=== PATIENT | male | born 1965 ===

== ENCOUNTER 2018-08-10 17:57 | Inpatient (IN) | payer MEDICAID, OTHER ==
[2018-08-10] MEDS ORDERED: Iodixanol 320 MG/ML 100 ML BOTTLE IV ONE (18:15)
[2018-08-10] MEDS ORDERED: Sodium Chloride 0.9% 1,000 ML IV SCH ×2 (18:15→18:42)
[2018-08-10 18:18] LABS: BASO % 0.2 % (0.0-2.0); HEMOGLOBIN 14.2 g/dL (12.0-18.0); LYMPH # 1.2 K/uL (1.0-4.3); LYMPH % 9.2 % (20.0-40.0); MEAN CORPUSCULAR HEMOGLOBIN 28.3 pg (27.0-31.0); MEAN PLATELET VOLUME 8.4 fL (7.2-11.7); MONO # 1.1 K/uL (0.0-0.8); MONO % 8.4 % (0.0-10.0); NEUT # 10.4 K/uL (1.8-7.0); NEUT % 82.2 % (50.0-75.0); PLATELET COUNT 251 K/uL (130-400); RED CELL DISTRIBUTION WIDTH 13.8 % (11.5-14.5); WHITE BLOOD COUNT 12.7 K/uL (4.8-10.8)
[2018-08-10 18:24] LABS: INR 1.1; PROTHROMBIN TIME 12.3 SECONDS (9.7-12.2)
[2018-08-10 18:29] LABS: ALB/GLOB RATIO 1.4 (1.0-2.1); ALBUMIN 4.8 g/dL (3.5-5.0); ALT/SGPT 34 U/L (21-72); AST/SGOT 43 U/L (17-59); BLOOD UREA NITROGEN 11 mg/dL (9-20); CALCIUM 9.5 mg/dl (8.6-10.4); GFR NON-AFRICAN AMERICAN > 60; HDL CHOLESTEROL 59 mg/dL (30-70)
[2018-08-10 18:39] LABS: LDL CHOLESTEROL 184 mg/dL (0-129)
--- NOTE | 2018-08-10 18:45 | C.PDOC ---
History Of Present Illness 52 y/o male pt presents to the ER for c/o unable to feel and move his left side. Pt reports he rents a room and lives with many people. He was fine last night when he went to bed but this morning he is unable to move his left side. Pt states he had been drinking last night. It was reported by mink slicer that his roommates noticed he wasn't moving during the day and thought he was hung over. Pt admits to drinking daily. Pt denies hx of stroke, [place], CAD and DM. Pt also denies fever and chills. Time Seen by Provider: 08/10/18 18:05 Chief Complaint (Nursing): Altered Mental Status History Per: Patient History/Exam Limitations: None Onset/Duration Of Symptoms: Hrs Current Symptoms Are (Timing): Still Present Past Medical History Reviewed: Historical Data, Nursing Documentation, Vital Signs Vital Signs: Last Vital Signs Temp 98.8 F 08/10/18 18:06 Pulse 100 H 08/10/18 18:06 Resp 20 08/10/18 18:06 BP 141/60 08/10/18 18:06 Pulse Ox 97 08/10/18 18:06 Family History: States: No Known Family Hx - Social History Hx Alcohol Use: Yes Hx Substance Use: No - Immunization History Hx Tetanus Toxoid Vaccination: No Hx Influenza Vaccination: No Hx Pneumococcal Vaccination: No Review Of Systems Constitutional: Negative for: Fever, Chills Musculoskeletal: Positive for: Other (unable to move left-side of body ) Physical Exam - Physical Exam Appears: Non-toxic, No Acute Distress Skin: Normal Color, Warm, Dry Head: Other (left facial droop; but can raise eyebrow ) Eye(s): bilateral: Normal Inspection, EOMI Neck: Normal ROM, Supple Chest: Symmetrical, No Deformity Cardiovascular: Rhythm Regular Respiratory: Normal Breath Sounds Gastrointestinal/Abdominal: Soft, No Tenderness Back: No CVA Tenderness Extremity: No Normal ROM (unable to move left side of body ), No Pedal Edema, No Calf Tenderness, Capillary Refill (<2 sec), No Deformity, No Swelling Pulses: Left Dorsalis Pedis: Normal, Right Dorsalis Pedis: Normal Neurological/Psych: Oriented x3, Normal Speech, Normal Cognition ED Course And Treatment - Laboratory Results Result Diagrams: 08/16/18 06:12 11/17/18 06:19 ECG: Interpreted By Me, Viewed By Me ECG Rhythm: Sinus Rhythm, Nonspecific Changes ECG Interpretation: Normal, No Acute Changes Rate From EC O2 Sat by Pulse Oximetry: 97 (RA) Pulse Ox Interpretation: Normal - CT Scan/US head Other Rad Studies (CT/US): Read By Radiologist, Radiology Report Reviewed CT/US Interpretation: Name:LOPEZ HARLEY Exam Date:Aug 10, 2018 6:15:19 PM EST. Modality Type:CT\SR. Description:CT - BRAIN. Gender:M Laterality:Not applicable. :67 Referring Physician:KI LOPEZ. EXAM: CT Head without Intravenous Contrast. CLINICAL HISTORY: Code stroke. TECHNIQUE: Axial computed tomography images of the head/brain without intravenous contrast. 0.00 mGy-cm. COMPARISON: None provided. FINDINGS: BRAIN. There is a large low density involving infarct involving mainly the right parietal region extending to the high convexity. Infarct involves the bassett and white matter. The infarct extends to the right temporal lobe as well as the external capsule, basal ganglia and caudate nucleus on the right side. He is approximately 4 mm shift of the midline structures to the left with mass-effect on the right lateral ventricle and right frontal horn. Fourth ventricle appears within normal limits. VENTRICLES: No hydrocephalus. ORBITS: The orbits are unremarkable. SINUSES AND MASTOIDS: The paranasal sinuses and mastoid air cells are clear. BONES: No fracture. SOFT TISSUES: Unremarkable. IMPRESSION: Large low density involving infarct involving the right hemisphere mainly in the right parietal lobe and also including the right temporal lobe. Infarct extends medially to involve the right external capsule basal ganglia and caudate nucleus. There is approximate 4 mm shift of the midline structures. There is mass-effect on the right lateral ventricle and right frontal horn. No hemorrhage is identified. Close clinical correlation follow-up study advised. head and neck Other Rad Studies (CT/US): Read By Radiologist, Radiology Report Reviewed CT/US Interpretation: Name:LOPEZ HARLEY Exam Date:Aug 10, 2018 6:26:46 PM EST. Modality Type:CT\SR. Description:CT - CARDIAC CTA. Gender:M Laterality:Not applicable. :67 Referring Physician:KI LOPEZ. EXAM: CTA Head and Neck with Intravenous Contrast. CLINICAL HISTORY: Code stroke cta. TECHNIQUE: Axial CTA images of the head and neck performed with intravenous contrast. MIP reconstructed images were created and reviewed. CONTRAST: With; VISI 100 MLS was injected intravenously without incident. COMPARISON: None provided. FINDINGS: VASCULATURE: NECK: COMMON CAROTID ARTERIES. No significant stenosis. No dissection or occlusion. EXTERNAL CAROTID ARTERIES. Patent. NECK: INTERNAL CAROTID ARTERIES. No stenosis by NASCET criteria. No dissection or occlusion. VERTEBRAL ARTERIES. No significant stenosis. No dissection or occlusion. HEAD: ANTERIOR CEREBRAL ARTERIES. No significant stenosis. No occlusion. No aneurysm. MIDDLE CEREBRAL ARTERIES. No significant stenosis. No occlusion. No aneurysm. POSTERIOR CEREBRAL ARTERIES. No significant stenosis. No occlusion. No aneurysm. BASILAR ARTERY. No significant stenosis. No occlusion. No aneurysm. OTHER: SOFT TISSUES. No acute finding. BONES. No acute osseous abnormality. IMPRESSION: Unremarkable CTA of the head and neck. NIHSS Stroke Scale - Date/Time Evaluation Performed Date Performed: 08/10/18 When Was NIHSS Performed: Baseline - How Severe is the Stoke Level of Consciousness: 0=Alert LOC to Questions: 0=Both comments correct LOC to commands: 0=Obeys both correctly Best Gaze: 0=Normal Visual: 0=No visual loss Facial: 2=Partial (lower face paralysis) Motor Arm - Left: 4=No movement Motor Arm - Right: 0=No drift Motor Leg - Left: 4=No movement Motor Leg - Right: 0=No drift Limb Ataxia: 0=Absent Sensory: 0=Normal Best Language: 0=No aphasia Dysarthia: 1=Mild to moderate slurring Extinction & Inattention (Neglect): 0=Normal, no object Score: 11 rTPA Inclusion/Exclusion - Refusal of Treatment Patient Refused Treatment: No - Inclusion Criteria for Altepase Patient is 18 years or Older: Yes Clinical DX Ischemic Stroke Cause Neurological Deficit: Yes Time of Onset Established Less Than 270 Mins Before TX Begin: No Risk/Benefit Discussed With Patient/Family Member Present: Yes Medical Decision Making Medical Decision Making: Plans -- blood bank -- blood work -- chem labs -- EKG -- stroke team consult -- CXR -- aspirin -- IV fluids -- UA 18:[address] Gautam: rec IV fluids of 100 CC/hour and rectal aspirin. Asked for MRI but MRI does not preform on weekend. Dr. Gautam was contacted again and CTA was negative. Dr Gautam suggests admit patient to ICU On reassessment pt denies drugs, tobacco, fall and is no longer in pain. Pt does not have a PMD and his last drink was last night. 19:[address] Amaya from ICU. 19:26 Dr. Alex Hoyt from hospitalist accepts pt for admittance. Disposition - Disposition Disposition: HOSPITALIZED Disposition Time: 19:26 Condition: FAIR - Clinical Impression Clinical Impression: Stroke - Scribe Statement The provider has reviewed the documentation as recorded by the [place]l Do Provider Attestation: All medical record entries made by the Jesusibe were at my direction and personally dictated by me. I have reviewed the chart and agree that the record accurately reflects my personal performance of the history, physical exam, m edical decision making, and the department course for this patient. I have also personally directed, reviewed, and agree with the discharge instructions and disposition.
[2018-08-10] MEDS: Sodium Chloride 0.9% 1,000 ML IV SCH (18:51)
[2018-08-10 18:58] LABS: SQUAMOUS EPITHIAL < 1 /hpf (0-5); URINE BACTERIA RARE (<OCC); URINE BILIRUBIN NEGATIVE (NEGATIVE); URINE BLOOD NEGATIVE (NEGATIVE); URINE CLARITY Clear (Clear); URINE COLOR Yellow (YELLOW); URINE GLUCOSE (UA) NORMAL (Normal); URINE LEUKOCYTE ESTERASE NEG Leu/uL (Negative); URINE PROTEIN NEGATIVE (NEGATIVE); URINE UROBILINOGEN NORMAL mg/dL (0.2-1.0)
[2018-08-10 19:15] LABS: BARBITURATES, UR NEGATIVE (NEGATIVE); BENZODIAZEPINES, UR NEGATIVE (NEGATIVE); OPIATES, UR NEGATIVE (NEGATIVE); PHENCYCLIDINE, UR NEGATIVE (NEGATIVE)
[2018-08-10 19:16] LABS: BANDS 1 % (0-2); LYMPHOCYTE 5 % (20-40); MONOCYTE 2 % (0-10); NEUTROPHIL 92 % (50-75); TOTAL CELLS COUNTED 100
[2018-08-10 19:17] LABS: PLATELET ESTIMATE NORMAL (NORMAL)
--- NOTE | 2018-08-10 20:11 | CP.PCM.HP ---
<Missy Grant - Last Filed: 08/10/18 20:04> History of Present Illness - History of Present Illness History of Present Illness: cc: AMS Mr. Aguayo is a 52 year old male with no PMH comes to [facility] for inability to move his left side. At time of interview, patient is poorly arousable. History obtained mostly from chart review and nursing staff. Patient was fine last night around midnight when he went to sleep. When he awoke this morning, he was unable to move his left side. Patient admits to drinking 5 beers daily; last drink yesterday evening. Denies pain, fever, chills, Hx HTN, DM, CAD, [place], stroke. Present on Admission - Present on Admission Any Indicators Present on Admission: No Review of Systems - Review of Systems Systems not reviewed;Unavailable: Acuity of Condition, Altered Mental Status Past Patient History - Past Social History Smoking Status: Unknown If Ever Smoked Alcohol: > 2 Drinks/Day Drugs: Denies - PSYCHIATRIC Hx Substance Use: No - SURGICAL HISTORY Hx Surgeries: No - ANESTHESIA Hx Anesthesia: No Meds Allergies/Adverse Reactions: Allergies Allergy/AdvReac Type Severity Reaction Status Date / Time No Known Allergies Allergy Verified 08/10/18 17:59 Physical Exam - Constitutional Appears: Non-toxic, Confused - Head Exam Head Exam: ATRAUMATIC, NORMAL INSPECTION, NORMOCEPHALIC - Eye Exam Eye Exam: absent: Scleral icterus Pupil Exam: Fixed, Miosis - ENT Exam ENT Exam: Mucous Membranes Dry, Normal Exam - Respiratory Exam Respiratory Exam: Clear to Auscultation Bilateral, NORMAL BREATHING PATTERN. absent: Accessory Muscle Use, Rales, Rhonchi, Wheezes - Cardiovascular Exam Cardiovascular Exam: REGULAR RHYTHM, +S1, +S2. absent: Gallop, Rubs, Systolic Murmur - GI/Abdominal Exam GI & Abdominal Exam: Normal Bowel Sounds, Soft. absent: Distended, Firm - Extremities Exam Extremities exam: Positive for: normal capillary refill, pedal pulses present. Negative for: pedal edema Additional comments: warm to touch peripheral pulses palpable bilaterally IV access in R AC - Expanded Neurological Exam Expanded Neurological exam: Inattentive Patient oriented to: person, place, time Speech: Garbled Speech, Slurred Speech Cranial nerves: EOM's Intact: Abnormal Left, Abnormal Right (patient uncooperative), Facial Palsey w/Forehead Movement: Abnormal Right, Facial Palsey w/o Forehead Movement: Abnormal Right, Facial Sensation: Abnormal Right Cerebellar Function: Finger to Nose: Abnormal Right, Heel to Nance: Abnormal Right DTR: Achilles Tendon Left: 2+, Achilles Tendon Right: 1+, Bicep Left: 0, Bicep Right: 2+, Brachioradialis Left: 0, Brachioradialis Right: 1+, Patellar Left: 1+, Patellar Right: 2+ Coma Scale Eye Opening: To Pain Coma Scale Motor Response: Localizes to Pain Coma Scale Verbal: Inappropriate Coma Scale Total: 10 - Skin Skin Exam: Dry, Intact, Normal Color, Warm Results - Vital Signs Recent Vital Signs: Last Vital Signs Temp 98 F 08/10/18 19:51 Pulse 87 08/10/18 19:51 Resp 18 08/10/18 19:51 BP 128/69 08/10/18 19:51 Pulse Ox 98 08/10/18 19:51 - Labs Result Diagrams: 08/10/18 18:13 08/10/18 18:13 Labs: Laboratory Results - last 24 hr 08/10/18 08/10/18 08/10/18 18:13 18:13 18:13 WBC 12.7 H RBC 5.00 Hgb 14.2 Hct 43.0 MCV 86.0 MCH 28.3 MCHC 33.0 RDW 13.8 Plt Count 251 MPV 8.4 Neut % (Auto) 82.2 H Lymph % (Auto) 9.2 L [place] % (Auto) 8.4 Eos % (Auto) 0.0 Baso % (Auto) 0.2 Neut # (Auto) 10.4 H Lymph # (Auto) 1.2 [place] # (Auto) 1.1 H Eos # (Auto) 0.0 Baso # (Auto) 0.0 Neutrophils % (Manual) 92 H Band Neutrophils % 1 Lymphocytes % (Manual) 5 L Monocytes % (Manual) 2 Platelet Estimate Normal PT 12.3 H INR 1.1 APTT 30 Sodium 140 Potassium 4.2 Chloride 104 Carbon Dioxide 25 Anion Gap 16 BUN 11 Creatinine 0.8 Est GFR ( Amer) > 60 Est GFR (Non-Af Amer) > 60 Random Glucose 112 H Hemoglobin A1c Calcium 9.5 Total Bilirubin 0.8 AST 43 ALT 34 Alkaline Phosphatase 78 Troponin I < 0.0120 Total Protein 8.4 H Albumin 4.8 Globulin 3.6 Albumin/Globulin Ratio 1.4 Triglycerides 100 Cholesterol 271 H LDL Cholesterol Direct 184 H HDL Cholesterol 59 Urine Color Urine Clarity Urine pH Ur Specific [place] Urine Protein Urine Glucose (UA) Urine Ketones Urine Blood Urine Nitrate Urine Bilirubin Urine Urobilinogen Ur Leukocyte Esterase Urine WBC (Auto) Urine RBC (Auto) Ur Squamous Epith Cells Urine Bacteria Urine Opiates Screen Urine Methadone Screen Ur Barbiturates Screen Ur Phencyclidine Scrn Ur Amphetamines Screen U Benzodiazepines Scrn U Oth Cocaine Metabols U Cannabinoids Screen Alcohol, Quantitative < 10 Blood Type Antibody Screen 08/10/18 08/10/18 08/10/18 18:13 18:50 18:51 WBC RBC Hgb Hct MCV MCH MCHC RDW Plt Count MPV Neut % (Auto) Lymph % (Auto) [place] % (Auto) Eos % (Auto) Baso % (Auto) Neut # (Auto) Lymph # (Auto) [place] # (Auto) Eos # (Auto) Baso # (Auto) Neutrophils % (Manual) Band Neutrophils % Lymphocytes % (Manual) Monocytes % (Manual) Platelet Estimate PT INR APTT Sodium Potassium Chloride Carbon Dioxide Anion Gap BUN Creatinine Est GFR ( Amer) Est GFR (Non-Af Amer) Random Glucose Hemoglobin A1c 6.0 Calcium Total Bilirubin AST ALT Alkaline Phosphatase Troponin I Total Protein Albumin Globulin Albumin/Globulin Ratio Triglycerides Cholesterol LDL Cholesterol Direct HDL Cholesterol Urine Color Urine Clarity Urine pH Ur Specific [place] Urine Protein Urine Glucose (UA) Urine Ketones Urine Blood Urine Nitrate Urine Bilirubin Urine Urobilinogen Ur Leukocyte Esterase Urine WBC (Auto) Urine RBC (Auto) Ur Squamous Epith Cells Urine Bacteria Urine Opiates Screen Negative Urine Methadone Screen Negative Ur Barbiturates Screen Negative Ur Phencyclidine Scrn Negative Ur Amphetamines Screen Negative U Benzodiazepines Scrn Negative U Oth Cocaine Metabols Negative U Cannabinoids Screen Positive H Alcohol, Quantitative Blood Type A POSITIVE Antibody Screen Negative 08/10/18 18:51 WBC RBC Hgb Hct MCV MCH MCHC RDW Plt Count MPV Neut % (Auto) Lymph % (Auto) [place] % (Auto) Eos % (Auto) Baso % (Auto) Neut # (Auto) Lymph # (Auto) [place] # (Auto) Eos # (Auto) Baso # (Auto) Neutrophils % (Manual) Band Neutrophils % Lymphocytes % (Manual) Monocytes % (Manual) Platelet Estimate PT INR APTT Sodium Potassium Chloride Carbon Dioxide Anion Gap BUN Creatinine Est GFR ( Amer) Est GFR (Non-Af Amer) Random Glucose Hemoglobin A1c Calcium Total Bilirubin AST ALT Alkaline Phosphatase Troponin I Total Protein Albumin Globulin Albumin/Globulin Ratio Triglycerides Cholesterol LDL Cholesterol Direct HDL Cholesterol Urine Color Yellow Urine Clarity Clear Urine pH 6.0 Ur Specific [place] 1.019 Urine Protein Negative Urine Glucose (UA) Normal Urine Ketones 1+ H Urine Blood Negative Urine Nitrate Negative Urine Bilirubin Negative Urine Urobilinogen Normal Ur Leukocyte Esterase Neg Urine WBC (Auto) 2 Urine RBC (Auto) 2 Ur Squamous Epith Cells < 1 Urine Bacteria Rare Urine Opiates Screen Urine Methadone Screen Ur Barbiturates Screen Ur Phencyclidine Scrn Ur Amphetamines Screen U Benzodiazepines Scrn U Oth Cocaine Metabols U Cannabinoids Screen Alcohol, Quantitative Blood Type Antibody Screen Assessment & Plan - Assessment and Plan (Free Text) Assessment: 52yo M with no PMH admitted for confirmed R sided stroke. Plan: Stroke, right CXR: no acute findings CT Head: large low density infarct involving the R hemisphere mainly the R parietal and temporal lobes. Extends medially with approx 4mm midline shift. No hemorrhage identified on prelim read CTA Head/Neck: pending read unable to obtain MRI over weekend. Hgb A1c 6.0, Trop <0.0120 Lipid Panel: TG 100 Chol 271 LDL 184 HDL 59 Rectal ASA and IVF given in ED Neuro and Critical Care on board. Is accepted to the ICU. Leukocytosis CXR: no acute disease UA: negative no skin changes likely stress reaction. continue to monitor with AM labs Alcohol/Substance Abuse daily alcohol CIWA protocol recommend Folate/Thiamine/MVI and Ativan vs. Librium if start showing withdrawal symptoms UDS positive for Cannabinoids d/w Dr. Evelina Grant PGY-1 - Date & Time Date: 08/10/18 Time: 19:45 <Alex Hoyt - Last Filed: 08/11/18 06:07> Results - Vital Signs Recent Vital Signs: Last Vital Signs Temp 98.5 F 08/11/18 04:00 Pulse 92 H 08/11/18 04:30 Resp 22 08/11/18 04:30 BP 123/77 08/11/18 04:25 Pulse Ox 95 08/11/18 04:30 - Labs Result Diagrams: 08/10/18 18:13 08/10/18 18:13 Labs: Laboratory Results - last 24 hr 08/10/18 08/10/18 08/10/18 18:13 18:13 18:13 WBC 12.7 H RBC 5.00 Hgb 14.2 Hct 43.0 MCV 86.0 MCH 28.3 MCHC 33.0 RDW 13.8 Plt Count 251 MPV 8.4 Neut % (Auto) 82.2 H Lymph % (Auto) 9.2 L [place] % (Auto) 8.4 Eos % (Auto) 0.0 Baso % (Auto) 0.2 Neut # (Auto) 10.4 H Lymph # (Auto) 1.2 [place] # (Auto) 1.1 H Eos # (Auto) 0.0 Baso # (Auto) 0.0 Neutrophils % (Manual) 92 H Band Neutrophils % 1 Lymphocytes % (Manual) 5 L Monocytes % (Manual) 2 Platelet Estimate Normal PT 12.3 H INR 1.1 APTT 30 Sodium 140 Potassium 4.2 Chloride 104 Carbon Dioxide 25 Anion Gap 16 BUN 11 Creatinine 0.8 Est GFR ( Amer) > 60 Est GFR (Non-Af Amer) > 60 Random Glucose 112 H Hemoglobin A1c Calcium 9.5 Total Bilirubin 0.8 AST 43 ALT 34 Alkaline Phosphatase 78 Troponin I < 0.0120 Total Protein 8.4 H Albumin 4.8 Globulin 3.6 Albumin/Globulin Ratio 1.4 Triglycerides 100 Cholesterol 271 H LDL Cholesterol Direct 184 H HDL Cholesterol 59 Urine Color Urine Clarity Urine pH Ur Specific [place] Urine Protein Urine Glucose (UA) Urine Ketones Urine Blood Urine Nitrate Urine Bilirubin Urine Urobilinogen Ur Leukocyte Esterase Urine WBC (Auto) Urine RBC (Auto) Ur Squamous Epith Cells Urine Bacteria Urine Opiates Screen Urine Methadone Screen Ur Barbiturates Screen Ur Phencyclidine Scrn Ur Amphetamines Screen U Benzodiazepines Scrn U Oth Cocaine Metabols U Cannabinoids Screen Alcohol, Quantitative < 10 Blood Type Antibody Screen 08/10/18 08/10/18 08/10/18 18:13 18:50 18:51 WBC RBC Hgb Hct MCV MCH MCHC RDW Plt Count MPV Neut % (Auto) Lymph % (Auto) [place] % (Auto) Eos % (Auto) Baso % (Auto) Neut # (Auto) Lymph # (Auto) [place] # (Auto) Eos # (Auto) Baso # (Auto) Neutrophils % (Manual) Band Neutrophils % Lymphocytes % (Manual) Monocytes % (Manual) Platelet Estimate PT INR APTT Sodium Potassium Chloride Carbon Dioxide Anion Gap BUN Creatinine Est GFR ( Amer) Est GFR (Non-Af Amer) Random Glucose Hemoglobin A1c 6.0 Calcium Total Bilirubin AST ALT Alkaline Phosphatase Troponin I Total Protein Albumin Globulin Albumin/Globulin Ratio Triglycerides Cholesterol LDL Cholesterol Direct HDL Cholesterol Urine Color Urine Clarity Urine pH Ur Specific [place] Urine Protein Urine Glucose (UA) Urine Ketones Urine Blood Urine Nitrate Urine Bilirubin Urine Urobilinogen Ur Leukocyte Esterase Urine WBC (Auto) Urine RBC (Auto) Ur Squamous Epith Cells Urine Bacteria Urine Opiates Screen Negative Urine Methadone Screen Negative Ur Barbiturates Screen Negative Ur Phencyclidine Scrn Negative Ur Amphetamines Screen Negative U Benzodiazepines Scrn Negative U Oth Cocaine Metabols Negative U Cannabinoids Screen Positive H Alcohol, Quantitative Blood Type A POSITIVE Antibody Screen Negative 08/10/18 18:51 WBC RBC Hgb Hct MCV MCH MCHC RDW Plt Count MPV Neut % (Auto) Lymph % (Auto) [place] % (Auto) Eos % (Auto) Baso % (Auto) Neut # (Auto) Lymph # (Auto) [place] # (Auto) Eos # (Auto) Baso # (Auto) Neutrophils % (Manual) Band Neutrophils % Lymphocytes % (Manual) Monocytes % (Manual) Platelet Estimate PT INR APTT Sodium Potassium Chloride Carbon Dioxide Anion Gap BUN Creatinine Est GFR ( Amer) Est GFR (Non-Af Amer) Random Glucose Hemoglobin A1c Calcium Total Bilirubin AST ALT Alkaline Phosphatase Troponin I Total Protein Albumin Globulin Albumin/Globulin Ratio Triglycerides Cholesterol LDL Cholesterol Direct HDL Cholesterol Urine Color Yellow Urine Clarity Clear Urine pH 6.0 Ur Specific [place] 1.019 Urine Protein Negative Urine Glucose (UA) Normal Urine Ketones 1+ H Urine Blood Negative Urine Nitrate Negative Urine Bilirubin Negative Urine Urobilinogen Normal Ur Leukocyte Esterase Neg Urine WBC (Auto) 2 Urine RBC (Auto) 2 Ur Squamous Epith Cells < 1 Urine Bacteria Rare Urine Opiates Screen Urine Methadone Screen Ur Barbiturates Screen Ur Phencyclidine Scrn Ur Amphetamines Screen U Benzodiazepines Scrn U Oth Cocaine Metabols U Cannabinoids Screen Alcohol, Quantitative Blood Type Antibody Screen Assessment & Plan - Date & Time Date: 08/11/18 (I have seen and examined the patient. I agree with the findings and plan of care as documented by Dr. Grant. Patient with acute CVA. Alcohol abuse. Admit to ICU. Consult to neuro. Further management as per ICU. Monitor for acute changes.) Time: 06:06 Attending/Attestation - Attestation I have personally seen and examined this patient.: Yes I have fully participated in the care of the patient.: Yes I have reviewed all pertinent clinical information: Yes
--- NOTE | 2018-08-10 20:17 | CP.PCM.CON ---
History of Present Illness - History of Present Illness History of Present Illness: CCM 52 yo male with hx ETOH Abuse to ED with Weakness on left side. Pt last OK last night t midnight while drinking with friends. Pt with slurred speech had some CANO earlier but denies when seen in ED. Pt denied chest pain /sob /n /v /fever. Pt respoonds with one word answers. ROS- as noted All-NKDASocial- +etoh/ no tob or drugs Meds- reviewed FH- Unknown PE T-98. P-87 R-18 BP-128/69 Lethargic, arousable,nad Perrl Neck-No jvd Lungs- bilat bs Heart-rr aBd- benign eXt- no edema, nontender Neuro -Left facial, Left HP 0/5 Labs, EKG,[id number] A&P Ischemic Stroke ETOH Abuse Admit to ICU Neuro checks Neurology eval ASA/statin/ mvi/thiamine/folic acid ECHO PT/OT Speech and swallow DVT prophylaxis Observe for withdrawal may require STR Critical care time spent with patient 45 min. Past Patient History - Past Social History Smoking Status: Unknown If Ever Smoked - PSYCHIATRIC Hx Substance Use: No - SURGICAL HISTORY Hx Surgeries: No - ANESTHESIA Hx Anesthesia: No Meds Allergies/Adverse Reactions: Allergies Allergy/AdvReac Type Severity Reaction Status Date / Time No Known Allergies Allergy Verified 08/10/18 17:59 - Medications Medications: Current Medications Sodium Chloride (Sodium Chloride 0.9%) 1,000 mls @ 100 mls/hr IV .Q10H [facility] Last Admin: 08/10/18 18:51 Dose: 100 mls/hr Sodium Chloride (Sodium Chloride 0.9%) 1,000 mls @ 120 mls/hr IV .Q8H20M [facility] Last Admin: 08/10/18 19:04 Dose: 120 mls/hr Results - Vital Signs Recent Vital Signs: Last Vital Signs Temp 98 F 08/10/18 19:51 Pulse 87 08/10/18 19:51 Resp 18 08/10/18 19:51 BP 128/69 08/10/18 19:51 Pulse Ox 98 08/10/18 19:51 - Labs Result Diagrams: 08/10/18 18:13 08/10/18 18:13 Labs: Laboratory Results - last 24 hr 08/10/18 08/10/18 08/10/18 18:13 18:13 18:13 WBC 12.7 H RBC 5.00 Hgb 14.2 Hct 43.0 MCV 86.0 MCH 28.3 MCHC 33.0 RDW 13.8 Plt Count 251 MPV 8.4 Neut % (Auto) 82.2 H Lymph % (Auto) 9.2 L [place] % (Auto) 8.4 Eos % (Auto) 0.0 Baso % (Auto) 0.2 Neut # (Auto) 10.4 H Lymph # (Auto) 1.2 [place] # (Auto) 1.1 H Eos # (Auto) 0.0 Baso # (Auto) 0.0 Neutrophils % (Manual) 92 H Band Neutrophils % 1 Lymphocytes % (Manual) 5 L Monocytes % (Manual) 2 Platelet Estimate Normal PT 12.3 H INR 1.1 APTT 30 Sodium 140 Potassium 4.2 Chloride 104 Carbon Dioxide 25 Anion Gap 16 BUN 11 Creatinine 0.8 Est GFR ( Amer) > 60 Est GFR (Non-Af Amer) > 60 Random Glucose 112 H Hemoglobin A1c Calcium 9.5 Total Bilirubin 0.8 AST 43 ALT 34 Alkaline Phosphatase 78 Troponin I < 0.0120 Total Protein 8.4 H Albumin 4.8 Globulin 3.6 Albumin/Globulin Ratio 1.4 Triglycerides 100 Cholesterol 271 H LDL Cholesterol Direct 184 H HDL Cholesterol 59 Urine Color Urine Clarity Urine pH Ur Specific [place] Urine Protein Urine Glucose (UA) Urine Ketones Urine Blood Urine Nitrate Urine Bilirubin Urine Urobilinogen Ur Leukocyte Esterase Urine WBC (Auto) Urine RBC (Auto) Ur Squamous Epith Cells Urine Bacteria Urine Opiates Screen Urine Methadone Screen Ur Barbiturates Screen Ur Phencyclidine Scrn Ur Amphetamines Screen U Benzodiazepines Scrn U Oth Cocaine Metabols U Cannabinoids Screen Alcohol, Quantitative < 10 Blood Type Antibody Screen 08/10/18 08/10/18 08/10/18 18:13 18:50 18:51 WBC RBC Hgb Hct MCV MCH MCHC RDW Plt Count MPV Neut % (Auto) Lymph % (Auto) [place] % (Auto) Eos % (Auto) Baso % (Auto) Neut # (Auto) Lymph # (Auto) [place] # (Auto) Eos # (Auto) Baso # (Auto) Neutrophils % (Manual) Band Neutrophils % Lymphocytes % (Manual) Monocytes % (Manual) Platelet Estimate PT INR APTT Sodium Potassium Chloride Carbon Dioxide Anion Gap BUN Creatinine Est GFR ( Amer) Est GFR (Non-Af Amer) Random Glucose Hemoglobin A1c 6.0 Calcium Total Bilirubin AST ALT Alkaline Phosphatase Troponin I Total Protein Albumin Globulin Albumin/Globulin Ratio Triglycerides Cholesterol LDL Cholesterol Direct HDL Cholesterol Urine Color Urine Clarity Urine pH Ur Specific [place] Urine Protein Urine Glucose (UA) Urine Ketones Urine Blood Urine Nitrate Urine Bilirubin Urine Urobilinogen Ur Leukocyte Esterase Urine WBC (Auto) Urine RBC (Auto) Ur Squamous Epith Cells Urine Bacteria Urine Opiates Screen Negative Urine Methadone Screen Negative Ur Barbiturates Screen Negative Ur Phencyclidine Scrn Negative Ur Amphetamines Screen Negative U Benzodiazepines Scrn Negative U Oth Cocaine Metabols Negative U Cannabinoids Screen Positive H Alcohol, Quantitative Blood Type A POSITIVE Antibody Screen Negative 08/10/18 18:51 WBC RBC Hgb Hct MCV MCH MCHC RDW Plt Count MPV Neut % (Auto) Lymph % (Auto) [place] % (Auto) Eos % (Auto) Baso % (Auto) Neut # (Auto) Lymph # (Auto) [place] # (Auto) Eos # (Auto) Baso # (Auto) Neutrophils % (Manual) Band Neutrophils % Lymphocytes % (Manual) Monocytes % (Manual) Platelet Estimate PT INR APTT Sodium Potassium Chloride Carbon Dioxide Anion Gap BUN Creatinine Est GFR ( Amer) Est GFR (Non-Af Amer) Random Glucose Hemoglobin A1c Calcium Total Bilirubin AST ALT Alkaline Phosphatase Troponin I Total Protein Albumin Globulin Albumin/Globulin Ratio Triglycerides Cholesterol LDL Cholesterol Direct HDL Cholesterol Urine Color Yellow Urine Clarity Clear Urine pH 6.0 Ur Specific [place] 1.019 Urine Protein Negative Urine Glucose (UA) Normal Urine Ketones 1+ H Urine Blood Negative Urine Nitrate Negative Urine Bilirubin Negative Urine Urobilinogen Normal Ur Leukocyte Esterase Neg Urine WBC (Auto) 2 Urine RBC (Auto) 2 Ur Squamous Epith Cells < 1 Urine Bacteria Rare Urine Opiates Screen Urine Methadone Screen Ur Barbiturates Screen Ur Phencyclidine Scrn Ur Amphetamines Screen U Benzodiazepines Scrn U Oth Cocaine Metabols U Cannabinoids Screen Alcohol, Quantitative Blood Type Antibody Screen Assessment & Plan (1) Stroke Status: Acute (2) ETOH abuse Status: Chronic
[2018-08-11] MEDS: Sodium Chloride 0.9% 1,000 ML IV SCH ×2 (05:15→16:13)
[2018-08-11 06:05] LABS: BASO % 0.2 % (0.0-2.0); HEMOGLOBIN 14.5 g/dL (12.0-18.0); LYMPH # 1.2 K/uL (1.0-4.3); LYMPH % 9.8 % (20.0-40.0); MEAN CELL VOLUME 86.5 fL (80.0-94.0); MEAN CORPUSCULAR HGB CONC 33.5 g/dL (33.0-37.0); MEAN PLATELET VOLUME 9.1 fL (7.2-11.7); MONO % 8.5 % (0.0-10.0); NEUT % 81.5 % (50.0-75.0); NRBC % 0.1 % (0.0-2.0); PLATELET COUNT 222 K/uL (130-400); RBC 5.01 Mil/uL (4.40-5.90); WHITE BLOOD COUNT 12.2 K/uL (4.8-10.8)
[2018-08-11 06:30] LABS: ALB/GLOB RATIO 1.3 (1.0-2.1); ALBUMIN 4.4 g/dL (3.5-5.0); ALT/SGPT 31 U/L (21-72); AST/SGOT 44 U/L (17-59); BLOOD UREA NITROGEN 11 mg/dL (9-20); GFR NON-AFRICAN AMERICAN > 60
[2018-08-11 07:16] LABS: LYMPHOCYTE 7 % (20-40); MONOCYTE 8 % (0-10); NEUTROPHIL 85 % (50-75); PLATELET ESTIMATE NORMAL (NORMAL); TOTAL CELLS COUNTED 100
--- NOTE | 2018-08-11 07:51 | CP.CCUPN ---
CCU Subjective - Physician Review Events Since Last Encounter (Free Text): 08/11/18 07:51 Patient now in the intensive care unit. Patient is a 52-year-old male with alcoholic abuse admitted to the hospital with the weakness left side. Patient is somewhat drowsy, arousable. He is moving the right side. But left upper extremity significant weakness present. Vital signs noted. Chest good air entry. Regular heart sound. Nontender abdomen. Labs reviewed Nonspecific. CT scan of the head will be repeated today. The previous CAT scan of the head showing evidence of mild 4 mm shift noted Neurological follow-up as needed. Assessment: 52-year-old male with a history of alcoholic abuse admitted to the hospital with acute ischemic CVA, right hemisphere with left-sided weakness. We will repeat the CAT scan again. Overall prognosis very poor Keep the elevation of the head. Blood pressure monitoring. Aspiration precaution. Will follow the patient CCU Objective - Vital Signs / Intake & Output Vital Signs (Last 4 hours): Vital Signs Temp Pulse Resp BP Pulse Ox 08/11/18 07:00 91 H 22 96 08/11/18 06:30 89 21 96 08/11/18 06:25 98 H 24 138/86 95 08/11/18 06:00 109 H 96 08/11/18 05:30 94 H 20 95 08/11/18 05:24 91 H 21 126/79 95 08/11/18 05:00 112 H 24 98 08/11/18 04:30 92 H 22 95 08/11/18 04:25 91 H 20 123/77 96 08/11/18 04:00 98.5 F 90 21 94 L Intake and Output (Last 8hrs): Intake & Output 08/10/18 08/11/18 08/11/18 22:59 06:59 14:59 Intake Total 200 800 100 Balance 200 800 100 Weight 223 lb 5 oz 219 lb Intake: Intake, IV Amount 200 800 100 Right Antecubital 200 800 100 Other: # Voids Urine, Voided 1 - Medications Active Medications: Active Medications Generic Name Dose Route Start Last Admin Trade Name Freq PRN Reason Stop Dose Admin Heparin Sodium (Porcine) 5,000 units 08/10/18 22:00 08/11/18 05:38 Heparin SC 5,000 units Q8 MARCO ANTONIO Administration Sodium Chloride 1,000 mls @ 100 mls/hr 08/10/18 18:15 11/11/18 05:15 Sodium Chloride 0.9% IV 100 mls/hr .Q10H MARCO ANTONIO Administration - Patient Studies Lab Studies: Lab Studies 08/11/18 08/11/18 08/10/18 Range/Units 06:01 06:01 18:51 WBC 12.2 H (4.8-10.8) K/uL RBC 5.01 (4.40-5.90) Mil/uL Hgb 14.5 (12.0-18.0) g/dL Hct 43.4 (35.0-51.0) % MCV 86.5 (80.0-94.0) fL MCH 29.0 (27.0-31.0) pg MCHC 33.5 (33.0-37.0) g/dL RDW 14.0 (11.5-14.5) % Plt Count 222 (130-400) K/uL MPV 9.1 (7.2-11.7) fL Neut % (Auto) 81.5 H (50.0-75.0) % Lymph % (Auto) 9.8 L (20.0-40.0) % [place] % (Auto) 8.5 (0.0-10.0) % Eos % (Auto) 0.0 (0.0-4.0) % Baso % (Auto) 0.2 (0.0-2.0) % Neut # (Auto) 10.0 H (1.8-7.0) K/uL Lymph # (Auto) 1.2 (1.0-4.3) K/uL [place] # (Auto) 1.0 H (0.0-0.8) K/uL Eos # (Auto) 0.0 (0.0-0.7) K/uL Baso # (Auto) 0.0 (0.0-0.2) K/uL Neutrophils % (Manual) 85 H (50-75) % Band Neutrophils % (0-2) % Lymphocytes % (Manual) 7 L (20-40) % Monocytes % (Manual) 8 (0-10) % Platelet Estimate Normal (NORMAL) PT (9.7-12.2) SECONDS INR APTT (21-34) SECONDS Sodium 140 (132-148) mmol/L Potassium 4.0 (3.6-5.2) mmol/L Chloride 106 (98-107) mmol/L Carbon Dioxide 23 (22-30) mmol/L Anion Gap 15 (10-20) BUN 11 (9-20) mg/dL Creatinine 0.8 (0.8-1.5) mg/dL Est GFR ( Amer) > 60 Est GFR (Non-Af Amer) > 60 Random Glucose 107 (75-110) mg/dL Hemoglobin A1c (4.2-6.5) % Calcium 9.0 (8.6-10.4) mg/dl Total Bilirubin 0.8 (0.2-1.3) mg/dL AST 44 (17-59) U/L ALT 31 (21-72) U/L Alkaline Phosphatase 83 (38-126) U/L Troponin I (0.00-0.120) ng/mL Total Protein 7.7 (6.3-8.3) g/dL Albumin 4.4 (3.5-5.0) g/dL Globulin 3.3 (2.2-3.9) gm/dL Albumin/Globulin Ratio 1.3 (1.0-2.1) Triglycerides (0-149) mg/dL Cholesterol (0-199) mg/dL LDL Cholesterol Direct (0-129) mg/dL HDL Cholesterol (30-70) mg/dL Urine Color Yellow (YELLOW) Urine Clarity Clear (Clear) Urine pH 6.0 (5.0-8.0) Ur Specific [place] 1.019 (1.003-1.030) Urine Protein Negative (NEGATIVE) mg/dL Urine Glucose (UA) Normal (Normal) mg/dL Urine Ketones 1+ H (NEGATIVE) mg/dL Urine Blood Negative (NEGATIVE) Urine Nitrate Negative (NEGATIVE) Urine Bilirubin Negative (NEGATIVE) Urine Urobilinogen Normal (0.2-1.0) mg/dL Ur Leukocyte Esterase Neg (Negative) Prav[place]/uL Urine WBC (Auto) 2 (0-5) /hpf Urine RBC (Auto) 2 (0-3) /hpf Ur Squamous Epith Cells < 1 (0-5) /hpf Urine Bacteria Rare (<OCC) Urine Opiates Screen (NEGATIVE) Urine Methadone Screen (NEGATIVE) Ur Barbiturates Screen (NEGATIVE) Ur Phencyclidine Scrn (NEGATIVE) Ur Amphetamines Screen (NEGATIVE) U Benzodiazepines Scrn (NEGATIVE) U Oth Cocaine Metabols (NEGATIVE) U Cannabinoids Screen (NEGATIVE) Alcohol, Quantitative (0-10) mg/dl Blood Type Antibody Screen 08/10/18 08/10/18 08/10/18 Range/Units 18:51 18:50 18:13 WBC (4.8-10.8) K/uL RBC (4.40-5.90) Mil/uL Hgb (12.0-18.0) g/dL Hct (35.0-51.0) % MCV (80.0-94.0) fL MCH (27.0-31.0) pg MCHC (33.0-37.0) g/dL RDW (11.5-14.5) % Plt Count (130-400) K/uL MPV (7.2-11.7) fL Neut % (Auto) (50.0-75.0) % Lymph % (Auto) (20.0-40.0) % [place] % (Auto) (0.0-10.0) % Eos % (Auto) (0.0-4.0) % Baso % (Auto) (0.0-2.0) % Neut # (Auto) (1.8-7.0) K/uL Lymph # (Auto) (1.0-4.3) K/uL [place] # (Auto) (0.0-0.8) K/uL Eos # (Auto) (0.0-0.7) K/uL Baso # (Auto) (0.0-0.2) K/uL Neutrophils % (Manual) (50-75) % Band Neutrophils % (0-2) % Lymphocytes % (Manual) (20-40) % Monocytes % (Manual) (0-10) % Platelet Estimate (NORMAL) PT (9.7-12.2) SECONDS INR APTT (21-34) SECONDS Sodium (132-148) mmol/L Potassium (3.6-5.2) mmol/L Chloride (98-107) mmol/L Carbon Dioxide (22-30) mmol/L Anion Gap (10-20) BUN (9-20) mg/dL Creatinine (0.8-1.5) mg/dL Est GFR ( Amer) Est GFR (Non-Af Amer) Random Glucose (75-110) mg/dL Hemoglobin A1c 6.0 (4.2-6.5) % Calcium (8.6-10.4) mg/dl Total Bilirubin (0.2-1.3) mg/dL AST (17-59) U/L ALT (21-72) U/L Alkaline Phosphatase (38-126) U/L Troponin I (0.00-0.120) ng/mL Total Protein (6.3-8.3) g/dL Albumin (3.5-5.0) g/dL Globulin (2.2-3.9) gm/dL Albumin/Globulin Ratio (1.0-2.1) Triglycerides (0-149) mg/dL Cholesterol (0-199) mg/dL LDL Cholesterol Direct (0-129) mg/dL HDL Cholesterol (30-70) mg/dL Urine Color (YELLOW) Urine Clarity (Clear) Urine pH (5.0-8.0) Ur Specific [place] (1.003-1.030) Urine Protein (NEGATIVE) mg/dL Urine Glucose (UA) (Normal) mg/dL Urine Ketones (NEGATIVE) mg/dL Urine Blood (NEGATIVE) Urine Nitrate (NEGATIVE) Urine Bilirubin (NEGATIVE) Urine Urobilinogen (0.2-1.0) mg/dL Ur Leukocyte Esterase (Negative) Pravin/uL Urine WBC (Auto) (0-5) /hpf Urine RBC (Auto) (0-3) /hpf Ur Squamous Epith Cells (0-5) /hpf Urine Bacteria (<OCC) Urine Opiates Screen Negative (NEGATIVE) Urine Methadone Screen Negative (NEGATIVE) Ur Barbiturates Screen Negative (NEGATIVE) Ur Phencyclidine Scrn Negative (NEGATIVE) Ur Amphetamines Screen Negative (NEGATIVE) U Benzodiazepines Scrn Negative (NEGATIVE) U Oth Cocaine Metabols Negative (NEGATIVE) U Cannabinoids Screen Positive H (NEGATIVE) Alcohol, Quantitative (0-10) mg/dl Blood Type A POSITIVE Antibody Screen Negative 08/10/18 08/10/18 08/10/18 Range/Units 18:13 18:13 18:13 WBC 12.7 H (4.8-10.8) K/uL RBC 5.00 (4.40-5.90) Mil/uL Hgb 14.2 (12.0-18.0) g/dL Hct 43.0 (35.0-51.0) % MCV 86.0 (80.0-94.0) fL MCH 28.3 (27.0-31.0) pg MCHC 33.0 (33.0-37.0) g/dL RDW 13.8 (11.5-14.5) % Plt Count 251 (130-400) K/uL MPV 8.4 (7.2-11.7) fL Neut % (Auto) 82.2 H (50.0-75.0) % Lymph % (Auto) 9.2 L (20.0-40.0) % [place] % (Auto) 8.4 (0.0-10.0) % Eos % (Auto) 0.0 (0.0-4.0) % Baso % (Auto) 0.2 (0.0-2.0) % Neut # (Auto) 10.4 H (1.8-7.0) K/uL Lymph # (Auto) 1.2 (1.0-4.3) K/uL [place] # (Auto) 1.1 H (0.0-0.8) K/uL Eos # (Auto) 0.0 (0.0-0.7) K/uL Baso # (Auto) 0.0 (0.0-0.2) K/uL Neutrophils % (Manual) 92 H (50-75) % Band Neutrophils % 1 (0-2) % Lymphocytes % (Manual) 5 L (20-40) % Monocytes % (Manual) 2 (0-10) % Platelet Estimate Normal (NORMAL) PT 12.3 H (9.7-12.2) SECONDS INR 1.1 APTT 30 (21-34) SECONDS Sodium 140 (132-148) mmol/L Potassium 4.2 (3.6-5.2) mmol/L Chloride 104 (98-107) mmol/L Carbon Dioxide 25 (22-30) mmol/L Anion Gap 16 (10-20) BUN 11 (9-20) mg/dL Creatinine 0.8 (0.8-1.5) mg/dL Est GFR ( Amer) > 60 Est GFR (Non-Af Amer) > 60 Random Glucose 112 H (75-110) mg/dL Hemoglobin A1c (4.2-6.5) % Calcium 9.5 (8.6-10.4) mg/dl Total Bilirubin 0.8 (0.2-1.3) mg/dL AST 43 (17-59) U/L ALT 34 (21-72) U/L Alkaline Phosphatase 78 (38-126) U/L Troponin I < 0.0120 (0.00-0.120) ng/mL Total Protein 8.4 H (6.3-8.3) g/dL Albumin 4.8 (3.5-5.0) g/dL Globulin 3.6 (2.2-3.9) gm/dL Albumin/Globulin Ratio 1.4 (1.0-2.1) Triglycerides 100 (0-149) mg/dL Cholesterol 271 H (0-199) mg/dL LDL Cholesterol Direct 184 H (0-129) mg/dL HDL Cholesterol 59 (30-70) mg/dL Urine Color (YELLOW) Urine Clarity (Clear) Urine pH (5.0-8.0) Ur Specific [place] (1.003-1.030) Urine Protein (NEGATIVE) mg/dL Urine Glucose (UA) (Normal) mg/dL Urine Ketones (NEGATIVE) mg/dL Urine Blood (NEGATIVE) Urine Nitrate (NEGATIVE) Urine Bilirubin (NEGATIVE) Urine Urobilinogen (0.2-1.0) mg/dL Ur Leukocyte Esterase (Negative) Pravin/uL Urine WBC (Auto) (0-5) /hpf Urine RBC (Auto) (0-3) /hpf Ur Squamous Epith Cells (0-5) /hpf Urine Bacteria (<OCC) Urine Opiates Screen (NEGATIVE) Urine Methadone Screen (NEGATIVE) Ur Barbiturates Screen (NEGATIVE) Ur Phencyclidine Scrn (NEGATIVE) Ur Amphetamines Screen (NEGATIVE) U Benzodiazepines Scrn (NEGATIVE) U Oth Cocaine Metabols (NEGATIVE) U Cannabinoids Screen (NEGATIVE) Alcohol, Quantitative < 10 (0-10) mg/dl Blood Type Antibody Screen Laboratory Results - last 24 hr 08/10/18 08/10/18 08/10/18 18:13 18:13 18:13 WBC 12.7 H RBC 5.00 Hgb 14.2 Hct 43.0 MCV 86.0 MCH 28.3 MCHC 33.0 RDW 13.8 Plt Count 251 MPV 8.4 Neut % (Auto) 82.2 H Lymph % (Auto) 9.2 L [place] % (Auto) 8.4 Eos % (Auto) 0.0 Baso % (Auto) 0.2 Neut # (Auto) 10.4 H Lymph # (Auto) 1.2 [place] # (Auto) 1.1 H Eos # (Auto) 0.0 Baso # (Auto) 0.0 Neutrophils % (Manual) 92 H Band Neutrophils % 1 Lymphocytes % (Manual) 5 L Monocytes % (Manual) 2 Platelet Estimate Normal PT 12.3 H INR 1.1 APTT 30 Sodium 140 Potassium 4.2 Chloride 104 Carbon Dioxide 25 Anion Gap 16 BUN 11 Creatinine 0.8 Est GFR ( Amer) > 60 Est GFR (Non-Af Amer) > 60 Random Glucose 112 H Hemoglobin A1c Calcium 9.5 Total Bilirubin 0.8 AST 43 ALT 34 Alkaline Phosphatase 78 Troponin I < 0.0120 Total Protein 8.4 H Albumin 4.8 Globulin 3.6 Albumin/Globulin Ratio 1.4 Triglycerides 100 Cholesterol 271 H LDL Cholesterol Direct 184 H HDL Cholesterol 59 Urine Color Urine Clarity Urine pH Ur Specific [place] Urine Protein Urine Glucose (UA) Urine Ketones Urine Blood Urine Nitrate Urine Bilirubin Urine Urobilinogen Ur Leukocyte Esterase Urine WBC (Auto) Urine RBC (Auto) Ur Squamous Epith Cells Urine Bacteria Urine Opiates Screen Urine Methadone Screen Ur Barbiturates Screen Ur Phencyclidine Scrn Ur Amphetamines Screen U Benzodiazepines Scrn U Oth Cocaine Metabols U Cannabinoids Screen Alcohol, Quantitative < 10 Blood Type Antibody Screen 08/10/18 08/10/18 08/10/18 18:13 18:50 18:51 WBC RBC Hgb Hct MCV MCH MCHC RDW Plt Count MPV Neut % (Auto) Lymph % (Auto) [place] % (Auto) Eos % (Auto) Baso % (Auto) Neut # (Auto) Lymph # (Auto) [place] # (Auto) Eos # (Auto) Baso # (Auto) Neutrophils % (Manual) Band Neutrophils % Lymphocytes % (Manual) Monocytes % (Manual) Platelet Estimate PT INR APTT Sodium Potassium Chloride Carbon Dioxide Anion Gap BUN Creatinine Est GFR ( Amer) Est GFR (Non-Af Amer) Random Glucose Hemoglobin A1c 6.0 Calcium Total Bilirubin AST ALT Alkaline Phosphatase Troponin I Total Protein Albumin Globulin Albumin/Globulin Ratio Triglycerides Cholesterol LDL Cholesterol Direct HDL Cholesterol Urine Color Urine Clarity Urine pH Ur Specific [place] Urine Protein Urine Glucose (UA) Urine Ketones Urine Blood Urine Nitrate Urine Bilirubin Urine Urobilinogen Ur Leukocyte Esterase Urine WBC (Auto) Urine RBC (Auto) Ur Squamous Epith Cells Urine Bacteria Urine Opiates Screen Negative Urine Methadone Screen Negative Ur Barbiturates Screen Negative Ur Phencyclidine Scrn Negative Ur Amphetamines Screen Negative U Benzodiazepines Scrn Negative U Oth Cocaine Metabols Negative U Cannabinoids Screen Positive H Alcohol, Quantitative Blood Type A POSITIVE Antibody Screen Negative 08/10/18 08/11/18 08/11/18 18:51 06:01 06:01 WBC 12.2 H RBC 5.01 Hgb 14.5 Hct 43.4 MCV 86.5 MCH 29.0 MCHC 33.5 RDW 14.0 Plt Count 222 MPV 9.1 Neut % (Auto) 81.5 H Lymph % (Auto) 9.8 L [place] % (Auto) 8.5 Eos % (Auto) 0.0 Baso % (Auto) 0.2 Neut # (Auto) 10.0 H Lymph # (Auto) 1.2 [place] # (Auto) 1.0 H Eos # (Auto) 0.0 Baso # (Auto) 0.0 Neutrophils % (Manual) 85 H Band Neutrophils % Lymphocytes % (Manual) 7 L Monocytes % (Manual) 8 Platelet Estimate Normal PT INR APTT Sodium 140 Potassium 4.0 Chloride 106 Carbon Dioxide 23 Anion Gap 15 BUN 11 Creatinine 0.8 Est GFR ( Amer) > 60 Est GFR (Non-Af Amer) > 60 Random Glucose 107 Hemoglobin A1c Calcium 9.0 Total Bilirubin 0.8 AST 44 ALT 31 Alkaline Phosphatase 83 Troponin I Total Protein 7.7 Albumin 4.4 Globulin 3.3 Albumin/Globulin Ratio 1.3 Triglycerides Cholesterol LDL Cholesterol Direct HDL Cholesterol Urine Color Yellow Urine Clarity Clear Urine pH 6.0 Ur Specific [place] 1.019 Urine Protein Negative Urine Glucose (UA) Normal Urine Ketones 1+ H Urine Blood Negative Urine Nitrate Negative Urine Bilirubin Negative Urine Urobilinogen Normal Ur Leukocyte Esterase Neg Urine WBC (Auto) 2 Urine RBC (Auto) 2 Ur Squamous Epith Cells < 1 Urine Bacteria Rare Urine Opiates Screen Urine Methadone Screen Ur Barbiturates Screen Ur Phencyclidine Scrn Ur Amphetamines Screen U Benzodiazepines Scrn U Oth Cocaine Metabols U Cannabinoids Screen Alcohol, Quantitative Blood Type Antibody Screen EKG/Cardiology Studies: Cardiology / EKG Studies 08/10/18 18:05 ELECTROCARDIOGRAM Stat Comment: Mode Of Transportation: STRETCHER Reason For Exam: code stroke Fingerstick Blood Sugar Results: 112
[2018-08-11] MEDS ORDERED: levETIRAcetam 1,000 MG in Sodium Chloride 0.9% 100 ML IVPB ONE (09:30)
--- NOTE | 2018-08-11 10:27 | CP.PCM.PN ---
Subjective - Date & Time of Evaluation Date of Evaluation: 08/11/18 Time of Evaluation: 10:27 - Subjective Subjective: Patient is lethargic,arousable,moving his right hand left side weakness,MARCELINO Objective - Vital Signs/Intake and Output Vital Signs (last 24 hours): Temp Pulse Resp BP Pulse Ox 99 F 98 H 23 134/85 94 L 08/11/18 08:00 08/11/18 09:25 08/11/18 09:25 08/11/18 09:25 08/11/18 09:25 Intake and Output: 08/11/18 08/11/18 06:59 18:59 Intake Total 1000 410 Output Total 400 Balance 1000 10 - Medications Medications: Current Medications Aspirin (Aspirin Chewable) 81 mg NG DAILY [facility] Heparin Sodium (Porcine) (Heparin) 5,000 units SC Q8 [facility] Last Admin: 08/11/18 05:38 Dose: 5,000 units Sodium Chloride (Sodium Chloride 0.9%) 1,000 mls @ 100 mls/hr IV .Q10H [facility] Last Admin: 08/11/18 05:15 Dose: 100 mls/hr Levetiracetam 500 mg/ Dextrose 105 mls @ 420 mls/hr IVPB Q12H [facility] Last Admin: 08/11/18 10:06 Dose: Not Given Rosuvastatin Calcium (Crestor) 20 mg NG HS [facility] - Labs Labs: 08/11/18 06:01 08/11/18 06:01 PT 12.3 SECONDS (9.7-12.2) H 08/10/18 18:13 INR 1.1 08/10/18 18:13 APTT 30 SECONDS (21-34) 08/10/18 18:13 - Constitutional Appears: In Acute Distress - Head Exam Head Exam: NORMAL INSPECTION - Eye Exam Eye Exam: Normal appearance, PERRL - ENT Exam ENT Exam: Mucous Membranes Moist - Neck Exam Neck Exam: absent: Full ROM - Respiratory Exam Respiratory Exam: Clear to Ausculation Bilateral, NORMAL BREATHING PATTERN - Cardiovascular Exam Cardiovascular Exam: REGULAR RHYTHM - GI/Abdominal Exam GI & Abdominal Exam: Soft, Normal Bowel Sounds - Extremities Exam Extremities Exam: absent: Full ROM - Back Exam Back Exam: NORMAL INSPECTION - Neurological Exam Neurological Exam: Altered (lethargic). absent: Alert, Awake, Oriented x3 Neuro motor strength exam: Left Upper Extremity: 0, Right Upper Extremity: 2/1, Left Lower Extremity: 0, Right Lower Extremity: 2/1 - Psychiatric Exam Psychiatric exam: Flat Affect (lethargic) - Skin Skin Exam: Dry Assessment and Plan - Assessment and Plan (Free Text) Plan: 1. Acute CVA .large right cerebral infarct with midline shift. As per neurologist he was not a candidate for IV tPA due to being outside the 4.5 hour time window. He was not a candidate for thrombectomy due to completed infarct and no clear evidence of a thrombus. CXR: no acute findings CT Head: large low density infarct involving the R hemisphere mainly the R parietal and temporal lobes. Extends medially with approx 4mm midline shift. No hemorrhage identified on prelim read Repeat CT head shows increasing midline shift. patient is more lethargic. started on hypertonic saline as recommended by neurologist.d/w DR Marvin .We will follow his recommendation monitor sodium level. Goal to bring sodium to [address] Aguilera on board. He recommend to continue hypertonic saline and repeat CT head if get worse will need surgery/craniectomy CTA Head/Neck: no occlusion continue aspirin,keppra and statin 2.Leukocytosis CXR: no acute disease UA: negative no skin changes likely stress reaction. continue to monitor with AM labs 3.Alcohol/Substance Abuse Monitor for withdrawal 4.DVT and GI prophylaxis-on heparin and protonix Prognosis poor Spoke to son Yayo at [phone]
--- NOTE | 2018-08-11 11:09 | CT ---
Date of service: 08/10/2018 PROCEDURE: CT HEAD WITHOUT CONTRAST. HISTORY: Code Stroke COMPARISON: None available. TECHNIQUE: Axial computed tomography images were obtained through the head/brain without intravenous contrast. Radiation dose: Total exam DLP = 1245.06 mGy-cm. This CT exam was performed using one or more of the following dose reduction techniques: Automated exposure control, adjustment of the mA and/or kV according to patient size, and/or use of iterative reconstruction technique. FINDINGS: HEMORRHAGE: No acute parenchymal, subarachnoid or extra-axial hemorrhage.. BRAIN: There is a relatively large acute infarct involving the right frontal lobe predominately within the right basal ganglia including the right posterior frontal and parietal lobes extending to the vertex in the posterior frontoparietal region.. Diffuse cerebral edema within the the vault infarct zone results in mild moderate mass effect and effacement of overlying sulci as well as compression of the right lateral ventricle. Minimal ojooq-[id number] shift of the septum pellucidum estimated at approximately 4.9 mm. Slight dilatation of the left lateral ventricle suggesting mild early compressive effects at the level of the left foramen of Garza. VENTRICLES: No obstructive hydrocephalus. CALVARIUM: Unremarkable. PARANASAL SINUSES: Minimal mucosal thickening seen within the maxillary antra. Minimal mucosal thickening sphenoid sinus minor mucosal thickening seen within multiple ethmoid air cells extending superiorly into the into the inferior margin of the frontal sinus.. MASTOID AIR CELLS: Unremarkable as visualized. No inflammatory changes. OTHER FINDINGS: None. IMPRESSION: There is a large on MCA branch territory infarct involving the right basal ganglia and right posterior frontoparietal region extending to the vertex with mass effect with overlying sulcal effacement, compression of the right lateral ventricle and shift of the septum pellucidum from right to left by approximately 4.9 mm.. Slight dilatation of the left lateral ventricle suggesting mild early compressive effects at the level of the left foramen of Garza.. No definitive evidence of acute intracranial hemorrhage.
--- NOTE | 2018-08-11 11:53 | CT ---
Date of service: 08/10/2018. PROCEDURE: CT Angiography of the neck and brain with contrast. HISTORY: Code stroke COMPARISON: Comparison made with concurrent CT scan brain TECHNIQUE: Contiguous helical/transaxial al images of the neck were obtained from the level of the vertex of the skull to the superior mediastinum in the arteriographic phase of enhancement. Coronal and sagittal reformats or also generated. IV contrast dose: 100 cc Visipaque 320 Radiation dose: Total exam DLP = 638.0 mGy-cm. This CT exam was performed using one or more of the following dose reduction techniques: Automated exposure control, adjustment of the mA and/or kV according to patient size, and/or use of iterative reconstruction technique.. FINDINGS: The aortic arch is widely patent with no significant calcified atherosclerotic plaque. The The origins of the great vessels are patent. CAROTID ARTERIES: Right and left common carotid arteries, carotid bifurcations and internal carotid arteries are widely patent. The distal internal carotid arteries including the petrous cavernous and supraclinoid segments are patent despite caliber mild calcified atherosclerotic plaque changes along cavernous segments. VERTEBRAL ARTERIES: The vertebral arteries are patent and appear relatively symmetric throughout. Basilar artery is patent.. OTHER FINDINGS: The visualized major branches of the [id number] are patent.. Prominent posterior communicating artery the distal anterior middle and posterior cerebral arteries are patent and appear relatively symmetric. No evidence of large aneurysm nor vascular malformation. Less well seen on this study as compared to prior noncontrast CT scan is a large right MCA branch territory infarct which involves the right basal ganglia and right posterior frontoparietal watershed zone extending superiorly to the vertex. IMPRESSION: No evidence of occlusion, dissection or significant stenosis of the cervical carotid or vertebral circulation.. Mild atherosclerotic plaque changes seen both carotid siphons. No evidence of large aneurysm nor vascular malformation.
[2018-08-11 12:10] LABS: BARBITURATES, UR NEGATIVE (NEGATIVE); BENZODIAZEPINES, UR NEGATIVE (NEGATIVE); OPIATES, UR NEGATIVE (NEGATIVE); PHENCYCLIDINE, UR NEGATIVE (NEGATIVE)
--- NOTE | 2018-08-11 13:51 | CP.PCM.CON ---
History of Present Illness - History of Present Illness History of Present Illness: Neurology Consultation Note: Mr. Aguayo is a 52-year-old man with no known past medical history, who was referred to me by Dr. Hoyt, after the patient presented to the ED in the morning with left side weakness. The last time he was known well was the previous night. Non-contrast CT scan of the head was done in the ED and showed a large right cerebral infarct with 4 mm midline shift. He was given aspirin and transferred to the ICU after he became more lethargic. A repeat non- contrast CT scan of the head was done at around 12 PM today and showed worsening midline shift. The patient continues to be difficult to arouse. His NIHSS was 14. He was not a candidate for IV tPA due to being outside the 4.5 hour time window. He was not a candidate for thrombectomy due to completed infarct and no clear evidence of a thrombus. Review of Systems - Review of Systems Systems not reviewed;Unavailable: Altered Mental Status Past Patient History - Past Medical History & Family History Past Medical History?: No - Past Social History Smoking Status: Unknown If Ever Smoked - MUSCULOSKELETAL/RHEUMATOLOGICAL Hx Falls: No - PSYCHIATRIC Hx Substance Use: No - SURGICAL HISTORY Hx Surgeries: No - ANESTHESIA Hx Anesthesia: No Meds Allergies/Adverse Reactions: Allergies Allergy/AdvReac Type Severity Reaction Status Date / Time No Known Allergies Allergy Verified 08/10/18 17:59 - Medications Medications: Current Medications Aspirin (Aspirin Chewable) 81 mg NG DAILY [facility] Heparin Sodium (Porcine) (Heparin) 5,000 units SC Q8 [facility] Last Admin: 08/11/18 05:38 Dose: 5,000 units Sodium Chloride (Sodium Chloride 0.9%) 1,000 mls @ 100 mls/hr IV .Q10H [facility] Last Admin: 08/11/18 05:15 Dose: 100 mls/hr Rosuvastatin Calcium (Crestor) 20 mg NG HS [facility] Physical Exam - Constitutional Appears: Confused - Head Exam Head Exam: ATRAUMATIC, NORMAL INSPECTION, NORMOCEPHALIC - Eye Exam Eye Exam: EOMI, Normal appearance, PERRL - ENT Exam ENT Exam: Mucous Membranes Moist, Normal Exam - Neck Exam Neck exam: Positive for: Normal Inspection - Respiratory Exam Respiratory Exam: Clear to Auscultation Bilateral, NORMAL BREATHING PATTERN - Cardiovascular Exam Cardiovascular Exam: REGULAR RHYTHM, +S1, +S2 - GI/Abdominal Exam GI & Abdominal Exam: Normal Bowel Sounds, Soft. absent: Tenderness - Rectal Exam Rectal Exam: Deferred - Back Exam Back exam: NORMAL INSPECTION - Neurological Exam Neurological exam: Altered Additional comments: Somnolent, answers questions appropriately after deep painful stimulus. Left side hemiplegic and anesthetic. Right side moves spontaneously and has normal sensation. Does not open eyes to pain or command. Results - Vital Signs Recent Vital Signs: Last Vital Signs Temp 99.4 F 08/11/18 12:00 Pulse 97 H 08/11/18 13:24 Resp 22 08/11/18 13:24 BP 138/77 08/11/18 13:24 Pulse Ox 99 08/11/18 13:24 - Labs Result Diagrams: 08/11/18 06:01 08/11/18 06:01 Labs: Laboratory Results - last 24 hr 08/10/18 08/10/18 08/10/18 18:13 18:13 18:13 WBC 12.7 H RBC 5.00 Hgb 14.2 Hct 43.0 MCV 86.0 MCH 28.3 MCHC 33.0 RDW 13.8 Plt Count 251 MPV 8.4 Neut % (Auto) 82.2 H Lymph % (Auto) 9.2 L Victoria % (Auto) 8.4 Eos % (Auto) 0.0 Baso % (Auto) 0.2 Neut # (Auto) 10.4 H Lymph # (Auto) 1.2 Victoria # (Auto) 1.1 H Eos # (Auto) 0.0 Baso # (Auto) 0.0 Neutrophils % (Manual) 92 H Band Neutrophils % 1 Lymphocytes % (Manual) 5 L Monocytes % (Manual) 2 Platelet Estimate Normal PT 12.3 H INR 1.1 APTT 30 Sodium 140 Potassium 4.2 Chloride 104 Carbon Dioxide 25 Anion Gap 16 BUN 11 Creatinine 0.8 Est GFR ( Amer) > 60 Est GFR (Non-Af Amer) > 60 Random Glucose 112 H Hemoglobin A1c Calcium 9.5 Total Bilirubin 0.8 AST 43 ALT 34 Alkaline Phosphatase 78 Troponin I < 0.0120 Total Protein 8.4 H Albumin 4.8 Globulin 3.6 Albumin/Globulin Ratio 1.4 Triglycerides 100 Cholesterol 271 H LDL Cholesterol Direct 184 H HDL Cholesterol 59 Urine Color Urine Clarity Urine pH Ur Specific Ayer Urine Protein Urine Glucose (UA) Urine Ketones Urine Blood Urine Nitrate Urine Bilirubin Urine Urobilinogen Ur Leukocyte Esterase Urine WBC (Auto) Urine RBC (Auto) Ur Squamous Epith Cells Urine Bacteria Urine Opiates Screen Urine Methadone Screen Ur Barbiturates Screen Ur Phencyclidine Scrn Ur Amphetamines Screen U Benzodiazepines Scrn U Oth Cocaine Metabols U Cannabinoids Screen Alcohol, Quantitative < 10 Blood Type Antibody Screen 08/10/18 08/10/18 08/10/18 18:13 18:50 18:51 WBC RBC Hgb Hct MCV MCH MCHC RDW Plt Count MPV Neut % (Auto) Lymph % (Auto) Victoria % (Auto) Eos % (Auto) Baso % (Auto) Neut # (Auto) Lymph # (Auto) Victoria # (Auto) Eos # (Auto) Baso # (Auto) Neutrophils % (Manual) Band Neutrophils % Lymphocytes % (Manual) Monocytes % (Manual) Platelet Estimate PT INR APTT Sodium Potassium Chloride Carbon Dioxide Anion Gap BUN Creatinine Est GFR ( Amer) Est GFR (Non-Af Amer) Random Glucose Hemoglobin A1c 6.0 Calcium Total Bilirubin AST ALT Alkaline Phosphatase Troponin I Total Protein Albumin Globulin Albumin/Globulin Ratio Triglycerides Cholesterol LDL Cholesterol Direct HDL Cholesterol Urine Color Urine Clarity Urine pH Ur Specific Ayer Urine Protein Urine Glucose (UA) Urine Ketones Urine Blood Urine Nitrate Urine Bilirubin Urine Urobilinogen Ur Leukocyte Esterase Urine WBC (Auto) Urine RBC (Auto) Ur Squamous Epith Cells Urine Bacteria Urine Opiates Screen Negative Urine Methadone Screen Negative Ur Barbiturates Screen Negative Ur Phencyclidine Scrn Negative Ur Amphetamines Screen Negative U Benzodiazepines Scrn Negative U Oth Cocaine Metabols Negative U Cannabinoids Screen Positive H Alcohol, Quantitative Blood Type A POSITIVE Antibody Screen Negative 08/10/18 08/11/18 08/11/18 18:51 06:01 06:01 WBC 12.2 H RBC 5.01 Hgb 14.5 Hct 43.4 MCV 86.5 MCH 29.0 MCHC 33.5 RDW 14.0 Plt Count 222 MPV 9.1 Neut % (Auto) 81.5 H Lymph % (Auto) 9.8 L Victoria % (Auto) 8.5 Eos % (Auto) 0.0 Baso % (Auto) 0.2 Neut # (Auto) 10.0 H Lymph # (Auto) 1.2 Victoria # (Auto) 1.0 H Eos # (Auto) 0.0 Baso # (Auto) 0.0 Neutrophils % (Manual) 85 H Band Neutrophils % Lymphocytes % (Manual) 7 L Monocytes % (Manual) 8 Platelet Estimate Normal PT INR APTT Sodium 140 Potassium 4.0 Chloride 106 Carbon Dioxide 23 Anion Gap 15 BUN 11 Creatinine 0.8 Est GFR ( Amer) > 60 Est GFR (Non-Af Amer) > 60 Random Glucose 107 Hemoglobin A1c Calcium 9.0 Total Bilirubin 0.8 AST 44 ALT 31 Alkaline Phosphatase 83 Troponin I Total Protein 7.7 Albumin 4.4 Globulin 3.3 Albumin/Globulin Ratio 1.3 Triglycerides Cholesterol LDL Cholesterol Direct HDL Cholesterol Urine Color Yellow Urine Clarity Clear Urine pH 6.0 Ur Specific Ayer 1.019 Urine Protein Negative Urine Glucose (UA) Normal Urine Ketones 1+ H Urine Blood Negative Urine Nitrate Negative Urine Bilirubin Negative Urine Urobilinogen Normal Ur Leukocyte Esterase Neg Urine WBC (Auto) 2 Urine RBC (Auto) 2 Ur Squamous Epith Cells < 1 Urine Bacteria Rare Urine Opiates Screen Urine Methadone Screen Ur Barbiturates Screen Ur Phencyclidine Scrn Ur Amphetamines Screen U Benzodiazepines Scrn U Oth Cocaine Metabols U Cannabinoids Screen Alcohol, Quantitative Blood Type Antibody Screen 08/11/18 11:28 WBC RBC Hgb Hct MCV MCH MCHC RDW Plt Count MPV Neut % (Auto) Lymph % (Auto) Victoria % (Auto) Eos % (Auto) Baso % (Auto) Neut # (Auto) Lymph # (Auto) Victoria # (Auto) Eos # (Auto) Baso # (Auto) Neutrophils % (Manual) Band Neutrophils % Lymphocytes % (Manual) Monocytes % (Manual) Platelet Estimate PT INR APTT Sodium Potassium Chloride Carbon Dioxide Anion Gap BUN Creatinine Est GFR ( Amer) Est GFR (Non-Af Amer) Random Glucose Hemoglobin A1c Calcium Total Bilirubin AST ALT Alkaline Phosphatase Troponin I Total Protein Albumin Globulin Albumin/Globulin Ratio Triglycerides Cholesterol LDL Cholesterol Direct HDL Cholesterol Urine Color Urine Clarity Urine pH Ur Specific Ayer Urine Protein Urine Glucose (UA) Urine Ketones Urine Blood Urine Nitrate Urine Bilirubin Urine Urobilinogen Ur Leukocyte Esterase Urine WBC (Auto) Urine RBC (Auto) Ur Squamous Epith Cells Urine Bacteria Urine Opiates Screen Negative Urine Methadone Screen Negative Ur Barbiturates Screen Negative Ur Phencyclidine Scrn Negative Ur Amphetamines Screen Negative U Benzodiazepines Scrn Negative U Oth Cocaine Metabols Negative U Cannabinoids Screen Positive H Alcohol, Quantitative Blood Type Antibody Screen Assessment & Plan (1) Stroke Assessment and Plan: Large right MCA stroke with malignant appearing edema that appears worse. I recommend the followin. ICU close observation and intubate if needed for airway protection 2. Start 3% hypertonic saline for worsening edema. Bolus 250 mL and continue at 60 mL/hr for a goal serum sodium of 145-150 and serum osm of less than 320. 3. Continue aspirin 300 mg MA [address] Repeat CT head in 6 hours 5. Consult neurosurgery for possible brittanie-craniectomy and consider transferring to a tertiary center 6. BP may be normalized. 7. Q 1 hour neuro-checks. Thank you for this consultation. Status: Acute
--- NOTE | 2018-08-11 14:37 | RAD ---
Date of service: 08/10/2018 HISTORY: Code Stroke COMPARISON: No prior. FINDINGS: LUNGS: Poor inspiration with low lung volumes, crowded bronchovascular markings and mild bibasilar atelectasis.... PLEURA: No significant pleural effusion identified, no pneumothorax apparent. CARDIOVASCULAR: No aortic atherosclerotic calcification present. Normal cardiac size. No pulmonary vascular congestion. OSSEOUS STRUCTURES: No significant abnormalities. VISUALIZED UPPER ABDOMEN: Normal. OTHER FINDINGS: None. IMPRESSION: Poor inspiration with low lung volumes, crowded bronchovascular markings and mild bibasilar atelectasis....
--- NOTE | 2018-08-11 15:03 | PCM.PROC ---
Procedures Attestation:: I certify that I have explained the specified Operation(s) or Procedure(s), risks, benefits and reasonable alternatives to the Patient and/or other person responsible. The opportunity was given to ask questions and all questions answered - Central Line Placement Right Internal Jugular Aseptic technique was employed throughout the procedure: Hand Hygiene done prior to procedure, Full sterile barriers (mask, hair cover, sterile gown, sterile gloves) CVP Time Out Performed: Yes Pt. Placed on Pulse Ox Monitor: Yes Central Line Prep: Chlorhexidine-Alcohol Combination Local Anesthesia Used: Lidocaine 1% Amount of Anesthesia Used (mls): 1 Central Line Lumen Inserted: triple Central Line Length: 20 cm Post Procedure: Sutured in Place Secured by: Suture Post procedure dressing: Clear vapor permeable Post Procedure X-Ray: Yes Patient Tolerated Procedure: Well Immediate Complications: None
--- NOTE | 2018-08-11 15:49 | RAD ---
Date of service: 08/11/2018 HISTORY: Central Line Insertion COMPARISON: Comparison chest dated 08/10/2018 FINDINGS: Interval placement right IJ central line with tip in the SVC. LUNGS: Poor inspiration with low lung volumes, crowded bronchovascular markings and mild bibasilar atelectasis PLEURA: No significant pleural effusion identified, no pneumothorax apparent. CARDIOVASCULAR: No appreciable aortic atherosclerotic calcification present. Cardiomegaly.. OSSEOUS STRUCTURES: No significant abnormalities. VISUALIZED UPPER ABDOMEN: Normal. OTHER FINDINGS: None. IMPRESSION: Interval placement right IJ central line with tip in the SVC. Poor inspiration with low lung volumes, crowded bronchovascular markings and mild bibasilar atelectasis
[2018-08-11 18:18] LABS: BLOOD UREA NITROGEN 12 mg/dL (9-20); CALCIUM 8.5 mg/dl (8.6-10.4); GFR NON-AFRICAN AMERICAN > 60
[2018-08-11 21:47] LABS: ARTERIAL BLOOD GAS HCO3 25.6 mmol/L (21-28); ARTERIAL BLOOD GAS O2 SAT 97.1 % (95-98); ARTERIAL BLOOD GAS PCO2 33 mm/Hg (35-45); ARTERIAL BLOOD GAS PH 7.47 (7.35-7.45); ARTERIAL BLOOD GAS PO2 82 mm/Hg (80-100)
[2018-08-12 00:29] LABS: BLOOD UREA NITROGEN 13 mg/dL (9-20); CALCIUM 8.5 mg/dl (8.6-10.4); GFR NON-AFRICAN AMERICAN > 60
[2018-08-12 06:36] LABS: BASO % 0.1 % (0.0-2.0); HEMOGLOBIN 13.8 g/dL (12.0-18.0); LYMPH # 1.3 K/uL (1.0-4.3); LYMPH % 10.1 % (20.0-40.0); MEAN CELL VOLUME 86.5 fL (80.0-94.0); MEAN CORPUSCULAR HEMOGLOBIN 28.5 pg (27.0-31.0); MEAN PLATELET VOLUME 9.2 fL (7.2-11.7); MONO # 1.5 K/uL (0.0-0.8); MONO % 11.7 % (0.0-10.0); NEUT # 10.2 K/uL (1.8-7.0); NEUT % 78.1 % (50.0-75.0); RBC 4.84 Mil/uL (4.40-5.90); RED CELL DISTRIBUTION WIDTH 14.1 % (11.5-14.5); WHITE BLOOD COUNT 13.1 K/uL (4.8-10.8)
[2018-08-12 06:50] LABS: ALB/GLOB RATIO 1.3 (1.0-2.1); ALT/SGPT 26 U/L (21-72); AST/SGOT 42 U/L (17-59); BLOOD UREA NITROGEN 14 mg/dL (9-20); CALCIUM 8.5 mg/dl (8.6-10.4); GFR NON-AFRICAN AMERICAN > 60
[2018-08-12] MEDS ORDERED: Sodium Chloride 0.9% 250 ML IV ONE (08:00)
[2018-08-12] MEDS ORDERED: Sodium Chloride 3% 250 ML IV ONE (09:00)
--- NOTE | 2018-08-12 09:00 | CT ---
Date of service: 08/11/2018 PROCEDURE: CT HEAD WITHOUT CONTRAST. HISTORY: CODE STROKE COMPARISON: 08/10/2018. TECHNIQUE: Axial computed tomography images were obtained through the head/brain without intravenous contrast. Radiation dose: Total exam DLP = 1180.41 mGy-cm. This CT exam was performed using one or more of the following dose reduction techniques: Automated exposure control, adjustment of the mA and/or kV according to patient size, and/or use of iterative reconstruction technique. FINDINGS: HEMORRHAGE: There is hemorrhagic transformation of large right MCA infarction with multifocal hemorrhage in the right caudate head and basal ganglia. BRAIN: Local regional mass effect and diffuse right cerebral edema with effacement of the cortical sulci, right lateral ventricle and 11 mm midline shift from right to left. There is a focal well-circumscribed low-attenuation area in the right paramedian frontal lobe concerning for right SOTO territory infarction. VENTRICLES: No hydrocephalus. CALVARIUM: There is no calvarial fracture or extracranial soft tissue swelling. PARANASAL SINUSES: The small retention cyst/polyp in the right maxillary sinus. The remaining included paranasal sinuses are clear. MASTOID AIR CELLS: Predominantly clear. OTHER FINDINGS: None. IMPRESSION: Hemorrhagic conversion of known large right MCA territory infarction with local regional mass effect, diffuse cerebral edema and 11 mm midline shift from right to left. Interval development of right SOTO territory infarction involving the paramedian frontal lobe. Critical findings were discussed with Dr. Joy Walsh on 08/12/2018 at 8:45 a.m.
--- NOTE | 2018-08-12 09:14 | CT ---
Date of service: 08/12/2018 PROCEDURE: CT HEAD WITHOUT CONTRAST. HISTORY: post code stroke; increase in midline shift COMPARISON: 08/11/2018 at 12:22 p.m. TECHNIQUE: Axial computed tomography images were obtained through the head/brain without intravenous contrast. Radiation dose: Total exam DLP = 1053.62 mGy-cm. This CT exam was performed using one or more of the following dose reduction techniques: Automated exposure control, adjustment of the mA and/or kV according to patient size, and/or use of iterative reconstruction technique. FINDINGS: HEMORRHAGE: Redemonstration of hemorrhagic transformation of large right MCA infarction with interval mild increase in hemorrhage in the right basal ganglia and caudate head. BRAIN: There is worsening diffuse cerebral edema in the right cerebral hemisphere with complete effacement of the cortical sulci, local regional mass effect and effacement of the right lateral ventricle and 13 mm midline shift from right to left. There is redemonstration of low attenuation in the right paramedian frontal lobe concerning for right SOTO infarction. VENTRICLES: No hydrocephalus CALVARIUM: There is no calvarial fracture or extracranial soft tissue swelling. PARANASAL SINUSES: Predominantly clear. MASTOID AIR CELLS: Predominantly clear. OTHER FINDINGS: None. IMPRESSION: Hemorrhagic transformation of right MCA infarction with interval increase in the size of right basal ganglia and caudate head hemorrhage, worsening mass effect with 13 mm midline shift from right to left. No hydrocephalus. Suspect right SOTO territory infarction. Critical findings were discussed with Dr. oJy Walsh on 08/12/2018 at 8:45 a.m.
--- NOTE | 2018-08-12 09:57 | CP.PCM.PN ---
Subjective - Date & Time of Evaluation Date of Evaluation: 08/12/18 Time of Evaluation: 09:50 - Subjective Subjective: Medical Attending Note: patient seen and examined at bedside. No family present at bedside. Spoke with Rn, Rina, she has called Dr. Cross in light of CT findings; Dr. Fernandez on route. Patient is awake, he is able to say his name, his birthdate, and able to say his son's name. Patient is able to open his mouth on command, able to lift his right upper extremity and right lower extremity and withdraw to pain. Patient is able smile with noted facial droop on left side. patient is primarily barbadian speaking. My colleague Dr. Velez was able to speak with the son last night to inform in regards to patient's status. Patient is able to see my light from the right eye but reports it is blurry on his left. Objective - Vital Signs/Intake and Output Vital Signs (last 24 hours): Temp Pulse Resp BP Pulse Ox 100.2 F H 68 20 128/77 99 08/12/18 08:00 08/12/18 08:25 08/12/18 08:25 08/12/18 08:25 08/12/18 08:25 Intake and Output: 08/12/18 08/12/18 06:59 18:59 Intake Total 820 120 Output Total 1000 400 Balance -180 -280 - Medications Medications: Current Medications Acetaminophen (Tylenol 650mg/20.3ml Solution Ud) 650 mg PO Q6 PRN PRN Reason: Temperature Potassium Phosphate 15 mmole/ (Sodium Chloride) 255 mls @ 42.5 mls/hr IVPB ONCE ONE Stop: 08/12/18 15:59 Pantoprazole Sodium (Protonix Inj) 40 mg IVP DAILY [facility] Rosuvastatin Calcium (Crestor) 20 mg NG HS [facility] Last Admin: 08/11/18 21:47 Dose: 20 mg - Labs Labs: 08/12/18 06:24 08/12/18 06:24 PT 12.3 SECONDS (9.7-12.2) H 08/10/18 18:13 INR 1.1 08/10/18 18:13 APTT 30 SECONDS (21-34) 08/10/18 18:13 - Constitutional Appears: Non-toxic, No Acute Distress, Chronically Ill - Head Exam Additional comments: facial droop apparent on left has NGT tube placement has TLC - Eye Exam Eye Exam: EOMI, PERRL. absent: Nystagmus, Scleral icterus Pupil Exam: PERRL. absent: Irregular, Unequal - ENT Exam ENT Exam: Mucous Membranes Moist - Respiratory Exam Respiratory Exam: Clear to Ausculation Bilateral, NORMAL BREATHING PATTERN. absent: Rales, Rhonchi, Wheezes - Cardiovascular Exam Cardiovascular Exam: REGULAR RHYTHM, +S1, +S2 - GI/Abdominal Exam GI & Abdominal Exam: Soft, Normal Bowel Sounds. absent: Distended, Firm, Guarding, Rigid, Tenderness, Diminished Bowel Sounds, Rebound - Extremities Exam Extremities Exam: absent: Pedal Edema, Tenderness Additional comments: prevalon boots b/l - Back Exam Back Exam: absent: CVA tenderness (L), CVA tenderness (R) - Neurological Exam Neurological Exam: Alert, Awake, Oriented x3 Neuro motor strength exam: Left Upper Extremity: 0, Right Upper Extremity: 4, Left Lower Extremity: 0, Right Lower Extremity: 4 - Skin Skin Exam: Dry, Intact, Normal Color, Warm Assessment and Plan (1) Arterial ischemic stroke, MCA (middle cerebral artery), right, acute Assessment & Plan: CT Head (08/11/18): large on MCA branch territory infarct involving right basal ganglia and right posterior frotnoparietal region extending to vertex with mass effect with overlying sulcal effacement, compression of the right lateral ventricle and shift of the septum pellucidum from right to left lateral ventricle suggesting mild early compressive effects at the level of left foramen of Garza. No definitive evidence of acute intracranial hemorrhage. CT head and neck: no evidence of occlusion, dissection or significatn stenosis of the cervical caroitd or vertebral circulation. mild atheroscelroritc plauqe changes seen both cartoid siphons. no evidence of large aneurysm nor vascular malformation. CT head (08/12/18); hemorrhage conversion of known large right MCA territoty infarction with local regional mass effect, diffuse cerenral edema, and 11mm mid line from right to left. interval development of right SOTO territory infarction involving the paramedian frontal lobe, Neurosurgery on board-->on route to eval the patient per discussion with nurse aleta east on latest CT neurology on board-->not candidate for tpa/nor thrombectomy per neuro notes Seizure precautions aspiration precautions neurochecks q1 Status: Acute (2) ETOH abuse Assessment & Plan: monitor for withdrawal Status: Chronic (3) Impaired glucose tolerance Assessment & Plan: will need monitoring of his sugars repeat a1c in one year to prevent overt diabetes Status: Acute (4) Lipid disorder Assessment & Plan: elevated cholestrol: 271 LDL: 184 HDL: 59 T crestor 20mg NG HS Status: Acute (5) Leukocytosis Assessment & Plan: likely inflammatory reaction second to stroke ordered blood, urine studies Status: Acute (6) Prophylactic measure Assessment & Plan: chemical anticoagulation contraindicated in light of hemorrhagic conversion of MCA stroke SCDs b/l Prognosis poor Correct phone number of son Yayo: Yayo at [phone] Status: Acute
[2018-08-12] MEDS ORDERED: Potassium Phosphate 15 MMOLE in Sodium Chloride 0.9% 250 ML IVPB ONE (10:00)
--- NOTE | 2018-08-12 10:13 | CP.PCM.PCO ---
Physician Communication Note - Physician Communication Note Physician Communication Note: Jair Zee number: [phone]
--- NOTE | 2018-08-12 10:14 | RAD ---
HISTORY: pna COMPARISON: Chest x-ray performed 08/11/18 TECHNIQUE: Chest, one view. FINDINGS: Right IJ approach central venous catheter extends expected location of the SVC. Nasogastric tube extends beyond the hemidiaphragm towards expected location of the stomach. LUNGS: Hypoinflation. No focal consolidation. Please note that chest x-ray has limited sensitivity for the detection of pulmonary masses. PLEURA: No significant pleural effusion identified. No definite pneumothorax . CARDIOVASCULAR: The cardiomediastinal silhouette appears within normal limits of size. No significant atherosclerotic calcification present. OSSEOUS STRUCTURES: No acute osseous abnormality identified. VISUALIZED UPPER ABDOMEN: Unremarkable. OTHER FINDINGS: None. IMPRESSION: Right IJ approach central venous catheter extends expected location of the SVC. Nasogastric tube extends beyond the hemidiaphragm towards expected location of the stomach.
--- NOTE | 2018-08-12 10:39 | CP.PCM.PN ---
<Janette Chambers - Last Filed: 08/12/18 15:29> Subjective - Date & Time of Evaluation Date of Evaluation: 08/12/18 Time of Evaluation: 09:00 - Subjective Subjective: Neurology Follow Up Note Patient was seen and examined at bedside. Patient is arousable, able to state name, year, and president. He is able to follow commands.Facial drooped noted on left side. Can move right upper and lower extremity but unable to move left extremities, responds to painful stimuli only. Objective - Vital Signs/Intake and Output Vital Signs (last 24 hours): Temp Pulse Resp BP Pulse Ox 100.2 F H 68 20 128/77 99 08/12/18 08:00 08/12/18 08:25 08/12/18 08:25 08/12/18 08:25 08/12/18 08:25 Intake and Output: 08/12/18 08/12/18 06:59 18:59 Intake Total 820 120 Output Total 1000 400 Balance -180 -280 - Medications Medications: Current Medications Acetaminophen (Tylenol 650mg/20.3ml Solution Ud) 650 mg PO Q6 PRN PRN Reason: Temperature Potassium Phosphate 15 mmole/ (Sodium Chloride) 255 mls @ 42.5 mls/hr IVPB ONCE ONE Stop: 08/12/18 15:59 Pantoprazole Sodium (Protonix Inj) 40 mg IVP DAILY [facility] Rosuvastatin Calcium (Crestor) 20 mg NG HS [facility] Last Admin: 08/11/18 21:47 Dose: 20 mg - Labs Labs: 08/12/18 06:24 08/12/18 06:24 PT 12.3 SECONDS (9.7-12.2) H 08/10/18 18:13 INR 1.1 08/10/18 18:13 APTT 30 SECONDS (21-34) 08/10/18 18:13 - Constitutional Appears: No Acute Distress - Head Exam Head Exam: NORMAL INSPECTION, NORMOCEPHALIC - Eye Exam Eye Exam: PERRL. absent: Nystagmus, Scleral icterus Pupil Exam: PERRL - ENT Exam ENT Exam: Mucous Membranes Dry Additional comments: NGT in place, right jugular TLC left sided facial droop - Respiratory Exam Respiratory Exam: Clear to Ausculation Bilateral - Cardiovascular Exam Cardiovascular Exam: +S1, +S2 - GI/Abdominal Exam GI & Abdominal Exam: Soft, Normal Bowel Sounds. absent: Distended, Tenderness - Rectal Exam Rectal Exam: Deferred - Extremities Exam Extremities Exam: Normal Inspection. absent: Pedal Edema, Tenderness - Neurological Exam Neurological Exam: Alert, Awake, Oriented x3 Neuro motor strength exam: Left Upper Extremity: 0, Right Upper Extremity: 5, R ight Lower Extremity: 0 - Skin Skin Exam: Dry, Intact, Normal Color, Warm Assessment and Plan - Assessment and Plan (Free Text) Plan: Acute Right MCA with Hemorrhagic Conversion Imaging: - CT Head (08/11/18): large on MCA branch territory infarct involving right basal ganglia and right posterior frotnoparietal region extending to vertex with mass effect with overlying sulcal effacement, compression of the right lateral ventricle and shift of the septum pellucidum from right to left lateral ventricle suggesting mild early compressive effects at the level of left foramen of Garza. No definitive evidence of acute intracranial hemorrhage. - CT head/neck: no evidence of occlusion, dissection or significatn stenosis of the cervical caroitd or vertebral circulation. mild atheroscelroritc plauqe changes seen both cartoid siphons. no evidence of large aneurysm nor vascular malformation. - CT head (08/12/18); hemorrhage conversion of known large right MCA territory infarction with local regional mass effect, diffuse cerebral edema, and 11mm midline from right to left. interval development of right SOTO territory infarction involving the paramedian frontal lobe. Management: - ICU Management - Continue with medical management as patient's vitals are stable, he is responsive. - Neurosurgery to continue following if progression worsens - Serial Head CTs - Continue with NS 3% @ 60ml/hrs for a goal serum sodium of 145-150 and serum osm of less than 320. Case discussed with Janette Will DO, PGY2 <Vick Marvin - Last Filed: 08/13/18 17:55> Objective - Vital Signs/Intake and Output Vital Signs (last 24 hours): Temp Pulse Resp BP Pulse Ox 98.9 F 82 20 122/92 H 99 08/13/18 04:00 08/13/18 15:26 08/13/18 15:26 08/13/18 15:26 08/13/18 15:26 Intake and Output: 11/13/18 11/13/18 06:59 18:59 Intake Total 810 420 Output Total 1400 Balance -590 420 - Medications Medications: Current Medications Acetaminophen (Tylenol 650mg/20.3ml Solution Ud) 650 mg PO Q6 PRN PRN Reason: Temperature Last Admin: 08/12/18 15:26 Dose: 650 mg Sodium Chloride (Hypertonic Saline 3%) 500 mls @ 30 mls/hr IV .[id number] ONE Stop: 08/14/18 02:09 Last Admin: 08/13/18 17:09 Dose: 30 mls/hr Pantoprazole Sodium (Protonix Inj) 40 mg IVP DAILY [facility] Last Admin: 08/13/18 10:58 Dose: 40 mg Rosuvastatin Calcium (Crestor) 20 mg NG HS [facility] Last Admin: 08/12/18 21:52 Dose: 20 mg Senna/Docusate Sodium (Senokot S 50 Mg-8.6 Mg) 1 tab PO BID [facility] Last Admin: 08/13/18 17:11 Dose: 1 tab - Labs Labs: 08/13/18 06:15 08/13/18 17:24 PT 12.3 SECONDS (9.7-12.2) H 08/10/18 18:13 INR 1.1 08/10/18 18:13 APTT 30 SECONDS (21-34) 08/10/18 18:13 Assessment and Plan (1) Stroke Status: Acute Attending/Attestation - Attestation I have personally seen and examined this patient.: Yes I have fully participated in the care of the patient.: Yes I have reviewed all pertinent clinical information, including history, physical exam and plan: Yes Notes (Text): 08/13/18 17:54 I agree with the assessment and plan. The patient has a large right MCA acute to subacute ischemic stroke. He is experiencing a significant amount of cerebral edema and midline shift. We will continue to manage the edema medically with hypertonic saline and precautions to avoid increased ICP such as keeping his head elevated, avoiding fever, hypertension, hyperglycemia and constipation.
--- NOTE | 2018-08-12 11:36 | CP.CCUPN ---
CCU Subjective - Physician Review Events Since Last Encounter (Free Text): 08/12/18 11:35 No acute events overnight Subjective (Free Text): 08/12/18 11:35 Patient was seen and evaluated at bedside this morning. No acute issues. Patient is non-verbal, thus ROS could not be obtained. 08/12/18 17:31 Patient's son called for updates. Discussed patient's status with son (CHARLES). Critical Care Time Spent (in minutes): 35 CCU Objective - Vital Signs / Intake & Output Vital Signs (Last 4 hours): Vital Signs Temp Pulse Resp BP Pulse Ox 08/12/18 08:25 68 20 128/77 99 08/12/18 08:00 100.2 F H 99 Intake and Output (Last 8hrs): Intake & Output 08/11/18 08/12/18 08/12/18 22:59 06:59 14:59 Intake Total 740 480 120 Output Total 300 1000 400 Balance 440 -520 -280 Weight 218 lb 8 oz Intake: Intake, IV Amount 680 480 120 Right Antecubital 680 480 120 Other 60 Output: Urine 300 1000 400 Urine, Voided 300 1000 400 Other: # Voids Urine, Voided 1 # Bowel Movements 0 - Physical Exam Other physical findings (Free Text): - Constitutional Appears: No Acute Distress - Head Exam Head Exam: NORMAL INSPECTION, NORMOCEPHALIC - Eye Exam Eye Exam: PERRL. absent: Nystagmus, Scleral icterus - ENT Exam ENT Exam: Mucous Membranes Dry Additional comments: Left-sided facial droop Left-sided gaze NGT in place, right jugular TLC - Respiratory Exam Respiratory Exam: Clear to Ausculation Bilateral - Cardiovascular Exam Cardiovascular Exam: +S1, +S2 - GI/Abdominal Exam GI & Abdominal Exam: Soft, Normal Bowel Sounds. absent: Distended, Tenderness - Rectal Exam Rectal Exam: Deferred - Extremities Exam Extremities Exam: Normal Inspection. absent: Pedal Edema, Tenderness - Neurological Exam Neurological Exam: Alert, Awake, Oriented x3 Neuro motor strength exam: Left Upper Extremity: 0/5, Right Upper Extremity: 5/5, Right Lower Extremity: 0/5 Left-sided facial droop Left-sided gaze - Skin Skin Exam: Dry, Intact, Normal Color, Warm - Medications Active Medications: Active Medications Generic Name Dose Route Start Last Admin Trade Name Freq PRN Reason Stop Dose Admin Acetaminophen 650 mg 08/12/18 09:41 Tylenol 650mg/20.3ml Solution Ud PO Q6 PRN Temperature Potassium Phosphate 15 mmole/ 255 mls @ 42.5 mls/hr 08/12/18 10:00 08/12/18 10:49 Sodium Chloride IVPB 08/12/18 15:59 42.5 mls/hr ONCE ONE Administration Sodium Chloride 500 mls @ 60 mls/hr 08/12/18 11:31 Hypertonic Saline 3% IV 08/12/18 19:50 [id number] ONE Pantoprazole Sodium 40 mg 08/12/18 10:00 08/12/18 10:50 Protonix Inj IVP 40 mg DAILY MARCO ANTONIO Administration Rosuvastatin Calcium 20 mg 08/11/18 22:00 08/11/18 21:47 Crestor NG 20 mg HS MARCO ANTONIO Administration - Patient Studies Lab Studies: Lab Studies 08/12/18 08/12/18 08/12/18 Range/Units 11:10 07:29 06:24 WBC (4.8-10.8) K/uL RBC (4.40-5.90) Mil/uL Hgb (12.0-18.0) g/dL Hct (35.0-51.0) % MCV (80.0-94.0) fL MCH (27.0-31.0) pg MCHC (33.0-37.0) g/dL RDW (11.5-14.5) % Plt Count (130-400) K/uL MPV (7.2-11.7) fL Neut % (Auto) (50.0-75.0) % Lymph % (Auto) (20.0-40.0) % [place] % (Auto) (0.0-10.0) % Eos % (Auto) (0.0-4.0) % Baso % (Auto) (0.0-2.0) % Neut # (Auto) (1.8-7.0) K/uL Lymph # (Auto) (1.0-4.3) K/uL [place] # (Auto) (0.0-0.8) K/uL Eos # (Auto) (0.0-0.7) K/uL Baso # (Auto) (0.0-0.2) K/uL Puncture Site pCO2 (35-45) mm/Hg pO2 (80-100) mm/Hg HCO3 (21-28) mmol/L ABG pH (7.35-7.45) ABG Total CO2 (22-28) mmol/L ABG O2 Saturation (95-98) % ABG Base Excess (-2.0-3.0) mmol/L ABG Hemoglobin (11.7-17.4) g/dL ABG Carboxyhemoglobin (0.5-1.5) % POC ABG HHb (Measured) (0.0-5.0) % ABG Methemoglobin (0.0-3.0) % Carlos Test A-a O2 Difference mm/Hg Respiratory Index Hgb O2 Saturation (95.0-98.0) % Liter Flow FiO2 % Sodium 142 (132-148) mmol/L Potassium 3.7 (3.6-5.2) mmol/L Chloride 112 H (98-107) mmol/L Carbon Dioxide 27 (22-30) mmol/L Anion Gap 7 L (10-20) BUN 14 (9-20) mg/dL Creatinine 0.8 (0.8-1.5) mg/dL Est GFR ( Amer) > 60 Est GFR (Non-Af Amer) > 60 POC Glucose (mg/dL) 102 98 (65-110) mg/dL Random Glucose 112 H (75-110) mg/dL Calcium 8.5 L (8.6-10.4) mg/dl Phosphorus 2.0 L (2.5-4.5) mg/dL Magnesium 2.5 H (1.6-2.3) mg/dL Total Bilirubin 0.9 (0.2-1.3) mg/dL AST 42 (17-59) U/L ALT 26 (21-72) U/L Alkaline Phosphatase 73 (38-126) U/L Total Protein 7.1 (6.3-8.3) g/dL Albumin 4.0 (3.5-5.0) g/dL Globulin 3.1 (2.2-3.9) gm/dL Albumin/Globulin Ratio 1.3 (1.0-2.1) TSH 3rd Generation 1.50 (0.46-4.68) mIU/L Urine Opiates Screen (NEGATIVE) Urine Methadone Screen (NEGATIVE) Ur Barbiturates Screen (NEGATIVE) Ur Phencyclidine Scrn (NEGATIVE) Ur Amphetamines Screen (NEGATIVE) U Benzodiazepines Scrn (NEGATIVE) U Oth Cocaine Metabols (NEGATIVE) U Cannabinoids Screen (NEGATIVE) 08/12/18 08/12/18 08/11/18 Range/Units 06:24 00:15 21:43 WBC 13.1 H (4.8-10.8) K/uL RBC 4.84 (4.40-5.90) Mil/uL Hgb 13.8 (12.0-18.0) g/dL Hct 41.8 (35.0-51.0) % MCV 86.5 (80.0-94.0) fL MCH 28.5 (27.0-31.0) pg MCHC 33.0 (33.0-37.0) g/dL RDW 14.1 (11.5-14.5) % Plt Count 222 (130-400) K/uL MPV 9.2 (7.2-11.7) fL Neut % (Auto) 78.1 H (50.0-75.0) % Lymph % (Auto) 10.1 L (20.0-40.0) % [place] % (Auto) 11.7 H (0.0-10.0) % Eos % (Auto) 0.0 (0.0-4.0) % Baso % (Auto) 0.1 (0.0-2.0) % Neut # (Auto) 10.2 H (1.8-7.0) K/uL Lymph # (Auto) 1.3 (1.0-4.3) K/uL [place] # (Auto) 1.5 H (0.0-0.8) K/uL Eos # (Auto) 0.0 (0.0-0.7) K/uL Baso # (Auto) 0.0 (0.0-0.2) K/uL Puncture Site Lra pCO2 33 L (35-45) mm/Hg pO2 82 (80-100) mm/Hg HCO3 25.6 (21-28) mmol/L ABG pH 7.47 H (7.35-7.45) ABG Total CO2 25.0 (22-28) mmol/L ABG O2 Saturation 97.1 (95-98) % ABG Base Excess 0.9 (-2.0-3.0) mmol/L ABG Hemoglobin 14.0 (11.7-17.4) g/dL ABG Carboxyhemoglobin 1.0 (0.5-1.5) % POC ABG HHb (Measured) 2.9 (0.0-5.0) % ABG Methemoglobin 0.5 (0.0-3.0) % Carlos Test Na A-a O2 Difference 91.0 mm/Hg Respiratory Index 1.1 Hgb O2 Saturation 95.6 (95.0-98.0) % Liter Flow 3.0 FiO2 30.0 % Sodium 141 (132-148) mmol/L Potassium 3.6 (3.6-5.2) mmol/L Chloride 109 H (98-107) mmol/L Carbon Dioxide 26 (22-30) mmol/L Anion Gap 10 (10-20) BUN 13 (9-20) mg/dL Creatinine 0.8 (0.8-1.5) mg/dL Est GFR ( Amer) > 60 Est GFR (Non-Af Amer) > 60 POC Glucose (mg/dL) (65-110) mg/dL Random Glucose 113 H (75-110) mg/dL Calcium 8.5 L (8.6-10.4) mg/dl Phosphorus (2.5-4.5) mg/dL Magnesium (1.6-2.3) mg/dL Total Bilirubin (0.2-1.3) mg/dL AST (17-59) U/L ALT (21-72) U/L Alkaline Phosphatase (38-126) U/L Total Protein (6.3-8.3) g/dL Albumin (3.5-5.0) g/dL Globulin (2.2-3.9) gm/dL Albumin/Globulin Ratio (1.0-2.1) TSH 3rd Generation (0.46-4.68) mIU/L Urine Opiates Screen (NEGATIVE) Urine Methadone Screen (NEGATIVE) Ur Barbiturates Screen (NEGATIVE) Ur Phencyclidine Scrn (NEGATIVE) Ur Amphetamines Screen (NEGATIVE) U Benzodiazepines Scrn (NEGATIVE) U Oth Cocaine Metabols (NEGATIVE) U Cannabinoids Screen (NEGATIVE) 08/11/18 08/11/18 08/11/18 Range/Units 21:17 18:03 16:36 WBC (4.8-10.8) K/uL RBC (4.40-5.90) Mil/uL Hgb (12.0-18.0) g/dL Hct (35.0-51.0) % MCV (80.0-94.0) fL MCH (27.0-31.0) pg MCHC (33.0-37.0) g/dL RDW (11.5-14.5) % Plt Count (130-400) K/uL MPV (7.2-11.7) fL Neut % (Auto) (50.0-75.0) % Lymph % (Auto) (20.0-40.0) % [place] % (Auto) (0.0-10.0) % Eos % (Auto) (0.0-4.0) % Baso % (Auto) (0.0-2.0) % Neut # (Auto) (1.8-7.0) K/uL Lymph # (Auto) (1.0-4.3) K/uL [place] # (Auto) (0.0-0.8) K/uL Eos # (Auto) (0.0-0.7) K/uL Baso # (Auto) (0.0-0.2) K/uL Puncture Site pCO2 (35-45) mm/Hg pO2 (80-100) mm/Hg HCO3 (21-28) mmol/L ABG pH (7.35-7.45) ABG Total CO2 (22-28) mmol/L ABG O2 Saturation (95-98) % ABG Base Excess (-2.0-3.0) mmol/L ABG Hemoglobin (11.7-17.4) g/dL ABG Carboxyhemoglobin (0.5-1.5) % POC ABG HHb (Measured) (0.0-5.0) % ABG Methemoglobin (0.0-3.0) % Carlos Test A-a O2 Difference mm/Hg Respiratory Index Hgb O2 Saturation (95.0-98.0) % Liter Flow FiO2 % Sodium 140 (132-148) mmol/L Potassium 3.7 (3.6-5.2) mmol/L Chloride 106 (98-107) mmol/L Carbon Dioxide 26 (22-30) mmol/L Anion Gap 12 (10-20) BUN 12 (9-20) mg/dL Creatinine 0.8 (0.8-1.5) mg/dL Est GFR ( Amer) > 60 Est GFR (Non-Af Amer) > 60 POC Glucose (mg/dL) 107 107 (65-110) mg/dL Random Glucose 116 H (75-110) mg/dL Calcium 8.5 L (8.6-10.4) mg/dl Phosphorus (2.5-4.5) mg/dL Magnesium (1.6-2.3) mg/dL Total Bilirubin (0.2-1.3) mg/dL AST (17-59) U/L ALT (21-72) U/L Alkaline Phosphatase (38-126) U/L Total Protein (6.3-8.3) g/dL Albumin (3.5-5.0) g/dL Globulin (2.2-3.9) gm/dL Albumin/Globulin Ratio (1.0-2.1) TSH 3rd Generation (0.46-4.68) mIU/L Urine Opiates Screen (NEGATIVE) Urine Methadone Screen (NEGATIVE) Ur Barbiturates Screen (NEGATIVE) Ur Phencyclidine Scrn (NEGATIVE) Ur Amphetamines Screen (NEGATIVE) U Benzodiazepines Scrn (NEGATIVE) U Oth Cocaine Metabols (NEGATIVE) U Cannabinoids Screen (NEGATIVE) 08/11/18 08/11/18 08/11/18 Range/Units 11:28 11:14 07:30 WBC (4.8-10.8) K/uL RBC (4.40-5.90) Mil/uL Hgb (12.0-18.0) g/dL Hct (35.0-51.0) % MCV (80.0-94.0) fL MCH (27.0-31.0) pg MCHC (33.0-37.0) g/dL RDW (11.5-14.5) % Plt Count (130-400) K/uL MPV (7.2-11.7) fL Neut % (Auto) (50.0-75.0) % Lymph % (Auto) (20.0-40.0) % [place] % (Auto) (0.0-10.0) % Eos % (Auto) (0.0-4.0) % Baso % (Auto) (0.0-2.0) % Neut # (Auto) (1.8-7.0) K/uL Lymph # (Auto) (1.0-4.3) K/uL [place] # (Auto) (0.0-0.8) K/uL Eos # (Auto) (0.0-0.7) K/uL Baso # (Auto) (0.0-0.2) K/uL Puncture Site pCO2 (35-45) mm/Hg pO2 (80-100) mm/Hg HCO3 (21-28) mmol/L ABG pH (7.35-7.45) ABG Total CO2 (22-28) mmol/L ABG O2 Saturation (95-98) % ABG Base Excess (-2.0-3.0) mmol/L ABG Hemoglobin (11.7-17.4) g/dL ABG Carboxyhemoglobin (0.5-1.5) % POC ABG HHb (Measured) (0.0-5.0) % ABG Methemoglobin (0.0-3.0) % Carlos Test A-a O2 Difference mm/Hg Respiratory Index Hgb O2 Saturation (95.0-98.0) % Liter Flow FiO2 % Sodium (132-148) mmol/L Potassium (3.6-5.2) mmol/L Chloride (98-107) mmol/L Carbon Dioxide (22-30) mmol/L Anion Gap (10-20) BUN (9-20) mg/dL Creatinine (0.8-1.5) mg/dL Est GFR ( Amer) Est GFR (Non-Af Amer) POC Glucose (mg/dL) 109 112 H (65-110) mg/dL Random Glucose (75-110) mg/dL Calcium (8.6-10.4) mg/dl Phosphorus (2.5-4.5) mg/dL Magnesium (1.6-2.3) mg/dL Total Bilirubin (0.2-1.3) mg/dL AST (17-59) U/L ALT (21-72) U/L Alkaline Phosphatase (38-126) U/L Total Protein (6.3-8.3) g/dL Albumin (3.5-5.0) g/dL Globulin (2.2-3.9) gm/dL Albumin/Globulin Ratio (1.0-2.1) TSH 3rd Generation (0.46-4.68) mIU/L Urine Opiates Screen Negative (NEGATIVE) Urine Methadone Screen Negative (NEGATIVE) Ur Barbiturates Screen Negative (NEGATIVE) Ur Phencyclidine Scrn Negative (NEGATIVE) Ur Amphetamines Screen Negative (NEGATIVE) U Benzodiazepines Scrn Negative (NEGATIVE) U Oth Cocaine Metabols Negative (NEGATIVE) U Cannabinoids Screen Positive H (NEGATIVE) 08/10/18 Range/Units 18:01 WBC (4.8-10.8) K/uL RBC (4.40-5.90) Mil/uL Hgb (12.0-18.0) g/dL Hct (35.0-51.0) % MCV (80.0-94.0) fL MCH (27.0-31.0) pg MCHC (33.0-37.0) g/dL RDW (11.5-14.5) % Plt Count (130-400) K/uL MPV (7.2-11.7) fL Neut % (Auto) (50.0-75.0) % Lymph % (Auto) (20.0-40.0) % [place] % (Auto) (0.0-10.0) % Eos % (Auto) (0.0-4.0) % Baso % (Auto) (0.0-2.0) % Neut # (Auto) (1.8-7.0) K/uL Lymph # (Auto) (1.0-4.3) K/uL [place] # (Auto) (0.0-0.8) K/uL Eos # (Auto) (0.0-0.7) K/uL Baso # (Auto) (0.0-0.2) K/uL Puncture Site pCO2 (35-45) mm/Hg pO2 (80-100) mm/Hg HCO3 (21-28) mmol/L ABG pH (7.35-7.45) ABG Total CO2 (22-28) mmol/L ABG O2 Saturation (95-98) % ABG Base Excess (-2.0-3.0) mmol/L ABG Hemoglobin (11.7-17.4) g/dL ABG Carboxyhemoglobin (0.5-1.5) % POC ABG HHb (Measured) (0.0-5.0) % ABG Methemoglobin (0.0-3.0) % Carlos Test A-a O2 Difference mm/Hg Respiratory Index Hgb O2 Saturation (95.0-98.0) % Liter Flow FiO2 % Sodium (132-148) mmol/L Potassium (3.6-5.2) mmol/L Chloride (98-107) mmol/L Carbon Dioxide (22-30) mmol/L Anion Gap (10-20) BUN (9-20) mg/dL Creatinine (0.8-1.5) mg/dL Est GFR ( Amer) Est GFR (Non-Af Amer) POC Glucose (mg/dL) 100 (65-110) mg/dL Random Glucose (75-110) mg/dL Calcium (8.6-10.4) mg/dl Phosphorus (2.5-4.5) mg/dL Magnesium (1.6-2.3) mg/dL Total Bilirubin (0.2-1.3) mg/dL AST (17-59) U/L ALT (21-72) U/L Alkaline Phosphatase (38-126) U/L Total Protein (6.3-8.3) g/dL Albumin (3.5-5.0) g/dL Globulin (2.2-3.9) gm/dL Albumin/Globulin Ratio (1.0-2.1) TSH 3rd Generation (0.46-4.68) mIU/L Urine Opiates Screen (NEGATIVE) Urine Methadone Screen (NEGATIVE) Ur Barbiturates Screen (NEGATIVE) Ur Phencyclidine Scrn (NEGATIVE) Ur Amphetamines Screen (NEGATIVE) U Benzodiazepines Scrn (NEGATIVE) U Oth Cocaine Metabols (NEGATIVE) U Cannabinoids Screen (NEGATIVE) Laboratory Results - last 24 hr 08/10/18 08/11/18 08/11/18 18:01 07:30 11:14 WBC RBC Hgb Hct MCV MCH MCHC RDW Plt Count MPV Neut % (Auto) Lymph % (Auto) [place] % (Auto) Eos % (Auto) Baso % (Auto) Neut # (Auto) Lymph # (Auto) [place] # (Auto) Eos # (Auto) Baso # (Auto) Puncture Site pCO2 pO2 HCO3 ABG pH ABG Total CO2 ABG O2 Saturation ABG Base Excess ABG Hemoglobin ABG Carboxyhemoglobin POC ABG HHb (Measured) ABG Methemoglobin Carlos Test A-a O2 Difference Respiratory Index Hgb O2 Saturation Liter Flow FiO2 Sodium Potassium Chloride Carbon Dioxide Anion Gap BUN Creatinine Est GFR ( Amer) Est GFR (Non-Af Amer) POC Glucose (mg/dL) 100 112 H 109 Random Glucose Calcium Phosphorus Magnesium Total Bilirubin AST ALT Alkaline Phosphatase Total Protein Albumin Globulin Albumin/Globulin Ratio TSH 3rd Generation Urine Opiates Screen Urine Methadone Screen Ur Barbiturates Screen Ur Phencyclidine Scrn Ur Amphetamines Screen U Benzodiazepines Scrn U Oth Cocaine Metabols U Cannabinoids Screen 08/11/18 08/11/18 08/11/18 11:28 16:36 18:03 WBC RBC Hgb Hct MCV MCH MCHC RDW Plt Count MPV Neut % (Auto) Lymph % (Auto) [place] % (Auto) Eos % (Auto) Baso % (Auto) Neut # (Auto) Lymph # (Auto) [place] # (Auto) Eos # (Auto) Baso # (Auto) Puncture Site pCO2 pO2 HCO3 ABG pH ABG Total CO2 ABG O2 Saturation ABG Base Excess ABG Hemoglobin ABG Carboxyhemoglobin POC ABG HHb (Measured) ABG Methemoglobin Carlos Test A-a O2 Difference Respiratory Index Hgb O2 Saturation Liter Flow FiO2 Sodium 140 Potassium 3.7 Chloride 106 Carbon Dioxide 26 Anion Gap 12 BUN 12 Creatinine 0.8 Est GFR ( Amer) > 60 Est GFR (Non-Af Amer) > 60 POC Glucose (mg/dL) 107 Random Glucose 116 H Calcium 8.5 L Phosphorus Magnesium Total Bilirubin AST ALT Alkaline Phosphatase Total Protein Albumin Globulin Albumin/Globulin Ratio TSH 3rd Generation Urine Opiates Screen Negative Urine Methadone Screen Negative Ur Barbiturates Screen Negative Ur Phencyclidine Scrn Negative Ur Amphetamines Screen Negative U Benzodiazepines Scrn Negative U Oth Cocaine Metabols Negative U Cannabinoids Screen Positive H 08/11/18 08/11/18 08/12/18 21:17 21:43 00:15 WBC RBC Hgb Hct MCV MCH MCHC RDW Plt Count MPV Neut % (Auto) Lymph % (Auto) [place] % (Auto) Eos % (Auto) Baso % (Auto) Neut # (Auto) Lymph # (Auto) [place] # (Auto) Eos # (Auto) Baso # (Auto) Puncture Site Lra pCO2 33 L pO2 82 HCO3 25.6 ABG pH 7.47 H ABG Total CO2 25.0 ABG O2 Saturation 97.1 ABG Base Excess 0.9 ABG Hemoglobin 14.0 ABG Carboxyhemoglobin 1.0 POC ABG HHb (Measured) 2.9 ABG Methemoglobin 0.5 Carlos Test Na A-a O2 Difference 91.0 Respiratory Index 1.1 Hgb O2 Saturation 95.6 Liter Flow 3.0 FiO2 30.0 Sodium 141 Potassium 3.6 Chloride 109 H Carbon Dioxide 26 Anion Gap 10 BUN 13 Creatinine 0.8 Est GFR ( Amer) > 60 Est GFR (Non-Af Amer) > 60 POC Glucose (mg/dL) 107 Random Glucose 113 H Calcium 8.5 L Phosphorus Magnesium Total Bilirubin AST ALT Alkaline Phosphatase Total Protein Albumin Globulin Albumin/Globulin Ratio TSH 3rd Generation Urine Opiates Screen Urine Methadone Screen Ur Barbiturates Screen Ur Phencyclidine Scrn Ur Amphetamines Screen U Benzodiazepines Scrn U Oth Cocaine Metabols U Cannabinoids Screen 08/12/18 08/12/18 08/12/18 06:24 06:24 07:29 WBC 13.1 H RBC 4.84 Hgb 13.8 Hct 41.8 MCV 86.5 MCH 28.5 MCHC 33.0 RDW 14.1 Plt Count 222 MPV 9.2 Neut % (Auto) 78.1 H Lymph % (Auto) 10.1 L [place] % (Auto) 11.7 H Eos % (Auto) 0.0 Baso % (Auto) 0.1 Neut # (Auto) 10.2 H Lymph # (Auto) 1.3 [place] # (Auto) 1.5 H Eos # (Auto) 0.0 Baso # (Auto) 0.0 Puncture Site pCO2 pO2 HCO3 ABG pH ABG Total CO2 ABG O2 Saturation ABG Base Excess ABG Hemoglobin ABG Carboxyhemoglobin POC ABG HHb (Measured) ABG Methemoglobin Carlos Test A-a O2 Difference Respiratory Index Hgb O2 Saturation Liter Flow FiO2 Sodium 142 Potassium 3.7 Chloride 112 H Carbon Dioxide 27 Anion Gap 7 L BUN 14 Creatinine 0.8 Est GFR ( Amer) > 60 Est GFR (Non-Af Amer) > 60 POC Glucose (mg/dL) 98 Random Glucose 112 H Calcium 8.5 L Phosphorus 2.0 L Magnesium 2.5 H Total Bilirubin 0.9 AST 42 ALT 26 Alkaline Phosphatase 73 Total Protein 7.1 Albumin 4.0 Globulin 3.1 Albumin/Globulin Ratio 1.3 TSH 3rd Generation 1.50 Urine Opiates Screen Urine Methadone Screen Ur Barbiturates Screen Ur Phencyclidine Scrn Ur Amphetamines Screen U Benzodiazepines Scrn U Oth Cocaine Metabols U Cannabinoids Screen 08/12/18 11:10 WBC RBC Hgb Hct MCV MCH MCHC RDW Plt Count MPV Neut % (Auto) Lymph % (Auto) [place] % (Auto) Eos % (Auto) Baso % (Auto) Neut # (Auto) Lymph # (Auto) [place] # (Auto) Eos # (Auto) Baso # (Auto) Puncture Site pCO2 pO2 HCO3 ABG pH ABG Total CO2 ABG O2 Saturation ABG Base Excess ABG Hemoglobin ABG Carboxyhemoglobin POC ABG HHb (Measured) ABG Methemoglobin Carlos Test A-a O2 Difference Respiratory Index Hgb O2 Saturation Liter Flow FiO2 Sodium Potassium Chloride Carbon Dioxide Anion Gap BUN Creatinine Est GFR ( Amer) Est GFR (Non-Af Amer) POC Glucose (mg/dL) 102 Random Glucose Calcium Phosphorus Magnesium Total Bilirubin AST ALT Alkaline Phosphatase Total Protein Albumin Globulin Albumin/Globulin Ratio TSH 3rd Generation Urine Opiates Screen Urine Methadone Screen Ur Barbiturates Screen Ur Phencyclidine Scrn Ur Amphetamines Screen U Benzodiazepines Scrn U Oth Cocaine Metabols U Cannabinoids Screen Fingerstick Blood Sugar Results: 98 Review of Systems - Review of Systems Systems not reviewed;Unavailable: Acuity of Condition Assessment/Plan - Assessment and Plan (Free Text) Assessment: Mr. Aguayo is a 52-year-old man with no known past medical history, who presented to the ED in the morning with left side weakness. Non-contrast CT scan of the head was done in the ED and showed a large right cerebral infarct with 4 mm midline shift. He was given aspirin and transferred to the ICU after he became more lethargic. A repeat non-contrast CT scan of the head was done at around 12 PM today and showed worsening midline shift. The patient is able to be aroused at this time and is being treated with hypertonic saline. Neuro: - Acute right MCA infarct with 9.6mm midline shift and hemorrhagic conversion - Dr. Marvin consulted; recommendations appreciated - CT Head (08/11/18): large on MCA branch territory infarct involving right basal ganglia and right posterior frotnoparietal region extending to vertex with mass effect with overlying sulcal effacement, compression of the right lateral ventricle and shift of the septum pellucidum from right to left lateral nicci tricle suggesting mild early compressive effects at the level of left foramen of Garza. No definitive evidence of acute intracranial hemorrhage. - CT head/neck: no evidence of occlusion, dissection or significatn stenosis of the cervical caroitd or vertebral circulation. mild atheroscelroritc plauqe changes seen both cartoid siphons. no evidence of large aneurysm nor vascular malformation. - CT head (08/12/18); hemorrhage conversion of known large right MCA territory infarction with local regional mass effect, diffuse cerebral edema, and 11mm midline from right to left. interval development of right SOTO territory infarction involving the paramedian frontal lobe. - Continue with NS 3% @ 60ml/hrs for a goal serum sodium of 145-150 and serum osm of less than 320 - Neurosurgery Dr. Hernandez consulted; No craniotomy warranted at this time CV: - No acute issues - quality assurance monitor body Pulm: - Aspiration precautions - No acute issues GI: - NPO - NG tube - Ppx Renal: - No acute issues - Monitor CMP, Mg, Phos ID: - No acute issues - Monitor CBC with diff Patient seen and case evaluated with Dr. Nico Bustamante PGY1
[2018-08-12 12:11] LABS: URINE BACTERIA RARE (<OCC); URINE BILIRUBIN NEGATIVE (NEGATIVE); URINE BLOOD NEGATIVE (NEGATIVE); URINE CLARITY Clear (Clear); URINE COLOR Yellow (YELLOW); URINE GLUCOSE (UA) NORMAL (Normal); URINE LEUKOCYTE ESTERASE NEG Leu/uL (Negative); URINE PROTEIN NEGATIVE (NEGATIVE)
[2018-08-12] MEDS ORDERED: Sodium Chloride 3% 500 ML IV ONE ×2 (12:30→20:00)
[2018-08-12 12:33] LABS: BLOOD UREA NITROGEN 14 mg/dL (9-20); CALCIUM 8.1 mg/dl (8.6-10.4); GFR NON-AFRICAN AMERICAN > 60
--- NOTE | 2018-08-12 13:47 | CARD ---
APPROVED REPORT Date of service: 08/10/2018 EKG Measurement Heart [id number] <Conclusion> Normal sinus rhythm Normal ECG
[2018-08-12] MEDS: Acetaminophen 650mg/20.3ml solution UD PO PRN (15:26)
[2018-08-12 18:13] LABS: BLOOD UREA NITROGEN 14 mg/dL (9-20); CALCIUM 8.3 mg/dl (8.6-10.4); GFR NON-AFRICAN AMERICAN > 60
[2018-08-13 00:41] LABS: BLOOD UREA NITROGEN 15 mg/dL (9-20); CALCIUM 8.5 mg/dl (8.6-10.4); GFR NON-AFRICAN AMERICAN > 60
[2018-08-13 06:19] LABS: BASO % 0.4 % (0.0-2.0); EOS % 0.1 % (0.0-4.0); HEMOGLOBIN 12.7 g/dL (12.0-18.0); MEAN CELL VOLUME 87.9 fL (80.0-94.0); MEAN PLATELET VOLUME 8.8 fL (7.2-11.7); MONO # 1.2 K/uL (0.0-0.8); MONO % 11.4 % (0.0-10.0); NEUT % 78.1 % (50.0-75.0); NRBC % 0.1 % (0.0-2.0); RBC 4.39 Mil/uL (4.40-5.90); RED CELL DISTRIBUTION WIDTH 14.1 % (11.5-14.5); WHITE BLOOD COUNT 10.3 K/uL (4.8-10.8)
--- NOTE | 2018-08-13 06:27 | CON ---
DATE: 08/12/2018 HISTORY OF PRESENT ILLNESS: This is a 52-year-old male who was admitted on 08/10/2018 with a left cerebral hemisphere CVA. He was admitted with an expressive aphasia, as well as left hemiparesis. He was lethargic, but arousable, able to follow commands with prudent. The CT scan over the last two days showed increasing levels of cerebral edema and according to history, he showed some decline in his mentation. He was started yesterday on 3% saline and his sodium increased from 140 to 145 over 18 hours. Currently according to the nurse, he is brighter than he was yesterday. 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 PHYSICAL EXAMINATION: NEUROLOGIC: Pupils are equal, EOMs are full,. He is aphasic. He was very rapid and easily following simple commands however. Opens his eyes spontaneously and moves about appropriately with the right side. ASSESSMENT AND PLAN: At this point, I feel that conservative measures have not been exhausted in terms of treatment of this cerebral edema. I feel that either intracranial pressure monitoring or hemicraniectomy to reduce the intracranial pressure is not appropriate at this time. He needs to be followed medically and clinically. He needs to continue with 3%, we need to get his sodium up to the mid 150s. If his condition reverses, then we will consider invasive intervention. If you have any questions, do not hesitate to contact us. Bennett Moralez MD
[2018-08-13 06:35] LABS: ALB/GLOB RATIO 1.2 (1.0-2.1); ALBUMIN 3.7 g/dL (3.5-5.0); ALT/SGPT 21 U/L (21-72); AST/SGOT 34 U/L (17-59); BLOOD UREA NITROGEN 16 mg/dL (9-20); CALCIUM 8.4 mg/dl (8.6-10.4); GFR NON-AFRICAN AMERICAN > 60
--- NOTE | 2018-08-13 09:18 | CP.PCM.PN ---
Subjective - Date & Time of Evaluation Date of Evaluation: 08/13/18 Time of Evaluation: 08:30 - Subjective Subjective: Patient was seen and examined. Reviewed previous CT scans. Patient has had a large CVA affecting the MCA area basal ganglia as well as the frontoparietal area and the development of a hemmoragic conversion. There has been some midline shift as well. The patient has been on hypertonic saline. According to the staff the patient has been verbal. He was able to wake up with name call and tried to look at me. He was able to follow some simple commands with my basic [place] when I came and saw him including raising his right arm with some drifting, moving his right toes as well moving the right leg. Also sticking out his tounge. He was not able to move his left arm or left leg. There is a facial droop noted as well. Per staff the patient appears more awake and alert at this time. Neurosurgery has evaluated the patient and are follwing at this time. Objective - Vital Signs/Intake and Output Vital Signs (last 24 hours): Temp Pulse Resp BP Pulse Ox 98.9 F 60 15 117/76 99 08/13/18 04:00 08/13/18 07:00 08/13/18 07:00 08/13/18 06:27 08/13/18 07:00 Intake and Output: 08/13/18 08/13/18 06:59 18:59 Intake Total 810 60 Output Total 1400 Balance -590 60 - Medications Medications: Current Medications Acetaminophen (Tylenol 650mg/20.3ml Solution Ud) 650 mg PO Q6 PRN PRN Reason: Temperature Last Admin: 08/12/18 15:26 Dose: 650 mg Sodium Chloride (Hypertonic Saline 3%) 1,000 mls @ 30 mls/hr IV .Q24H MARCO ANTONIO Pantoprazole Sodium (Protonix Inj) 40 mg IVP DAILY MARCO ANTONIO Last Admin: 08/12/18 10:50 Dose: 40 mg Rosuvastatin Calcium (Crestor) 20 mg NG HS MARCO ANTONIO Last Admin: 08/12/18 21:52 Dose: 20 mg - Labs Labs: 08/13/18 06:15 08/13/18 06:15 PT 12.3 SECONDS (9.7-12.2) H 08/10/18 18:13 INR 1.1 08/10/18 18:13 APTT 30 SECONDS (21-34) 08/10/18 18:13 - Constitutional Appears: No Acute Distress, Unkempt, Chronically Ill - Head Exam Head Exam: NORMAL INSPECTION - Respiratory Exam Respiratory Exam: Clear to Ausculation Bilateral, NORMAL BREATHING PATTERN - Cardiovascular Exam Cardiovascular Exam: REGULAR RHYTHM - GI/Abdominal Exam GI & Abdominal Exam: Soft, Normal Bowel Sounds. 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 Per staff he seems to be more awake then when they first met him yesterday. There will be additional CT scans later today. Neurosurgery is following the case. Pending echo at this time. CT Head (08/11/18): large on MCA branch territory infarct involving right basal ganglia and right posterior frotnoparietal region extending to vertex with mass effect with overlying sulcal effacement, compression of the right lateral ventricle and shift of the septum pellucidum from right to left lateral ventricle suggesting mild early compressive effects at the level of left foramen of Garza. No definitive evidence of acute intracranial hemorrhage. CT head and neck: no evidence of occlusion, dissection or significatn stenosis of the cervical caroitd or vertebral circulation. mild atheroscelroritc plauqe changes seen both cartoid siphons. no evidence of large aneurysm nor vascular malformation. CT head (08/12/18); hemorrhage conversion of known large right MCA territoty infarction with local regional mass effect, diffuse cerenral edema, and 11mm midline from right to left. interval development of right SOTO territory infarction involving the paramedian frontal lobe, Neurosurgery on board-->on route to eval the patient per discussion with nurse based on latest CT neurology on board-->not candidate for tpa/nor thrombectomy per neuro notes Seizure precautions aspiration precautions neurochecks q1 Status: Acute (2) ETOH abuse Assessment & Plan: monitor for withdrawal Status: Chronic (3) Impaired glucose tolerance Assessment & Plan: will need monitoring of his sugars repeat a1c in one year to prevent overt diabetes Status: Acute (4) Lipid disorder Assessment & Plan: elevated cholestrol: 271 LDL: 184 HDL: 59 T crestor 20mg NG HS (5) Leukocytosis Assessment & Plan: likely inflammatory reaction second to stroke ordered blood, urine studies (6) Prophylactic measure Assessment & Plan: chemical anticoagulation contraindicated in light of hemorrhagic conversion of MCA stroke SCDs b/l Prognosis poor Correct phone number of son Yayo: Yayo at [phone]
[2018-08-13] MEDS ORDERED: Sodium Chloride 3% 500 ML IV ONE ×2 (09:30→15:38)
--- NOTE | 2018-08-13 09:46 | CT ---
Date of service: 08/13/2018 PROCEDURE: CT HEAD WITHOUT CONTRAST. HISTORY: right MCA w/ hemorrhagic conversion; midline shift COMPARISON: None available. TECHNIQUE: Axial computed tomography images were obtained through the head/brain without intravenous contrast. Radiation dose: Total exam DLP = 1278.34 mGy-cm. This CT exam was performed using one or more of the following dose reduction techniques: Automated exposure control, adjustment of the mA and/or kV according to patient size, and/or use of iterative reconstruction technique. FINDINGS: HEMORRHAGE: Focal elliptical shaped hyperdense foci in the right basal ganglia consistent with interval hemorrhagic conversion of large MCA territory infarct.. Collectively these changes continue to exert surrounding mass effect with overlying sulcal effacement as well as compression of the right lateral ventricle and shift of the septum pellucidum from right to left estimated at nearly 10 mm. The there is mild dilatation of the left lateral ventricle likely due to compression at the level of the left foramen of Monro BRAIN: Large MCA territory subacute infarct. VENTRICLES: Unremarka as above. Questionable minimal intraventricular extension of hemorrhage CALVARIUM: Unremarkable. PARANASAL SINUSES: Unremarkable as visualized. No significant inflammatory changes. MASTOID AIR CELLS: Unremarkable as visualized. No inflammatory changes. OTHER FINDINGS: None. IMPRESSION: Larger subacute MCA territory branch infarct with what appears represent hemorrhagic conversion changes in the right basal ganglia. Moderate to fairly significant mass-effect with compression of the right cerebral hemisphere including the right lateral ventricle which is shifted to the left side. Midline shift of the septum pellucidum estimated at approximately 10 mm. Mild dilatation of the left lateral ventricle likely due to compression at the level of the left foramen of Monro.
--- NOTE | 2018-08-13 09:58 | CP.CCUPN ---
<Zoe Bustamante - Last Filed: 08/13/18 09:58> CCU Subjective - Physician Review Events Since Last Encounter (Free Text): 08/13/18 09:58 No acute events overnight Subjective (Free Text): 08/13/18 09:58 Patient was seen and evaluated at bedside this morning. No acute issues. Patient is non-verbal, thus ROS could not be obtained. Critical Care Time Spent (in minutes): 35 CCU Objective - Vital Signs / Intake & Output Vital Signs (Last 4 hours): Vital Signs Pulse Resp BP Pulse Ox 08/13/18 07:00 60 15 99 08/13/18 06:27 68 17 117/76 99 08/13/18 06:00 73 17 97 Intake and Output (Last 8hrs): Intake & Output 08/12/18 08/13/18 08/13/18 22:59 06:59 14:59 Intake Total 582.5 510 60 Output Total 1600 1400 Balance -1017.5 -890 60 Weight 220 lb Intake: Intake, IV Amount 522.5 480 60 Right Distal Port 42.5 Internal Jugular Right Proximal Port 480 480 60 Internal Jugular Other 60 30 Output: Urine 1600 1400 Urine, Voided 1600 1400 Other: # Bowel Movements 0 - Physical Exam Other physical findings (Free Text): - Constitutional Appears: No Acute Distress - Head Exam Head Exam: NORMAL INSPECTION, NORMOCEPHALIC - Eye Exam Eye Exam: PERRL. absent: Nystagmus, Scleral icterus - ENT Exam ENT Exam: Mucous Membranes Dry Additional comments: Left-sided facial droop Left-sided gaze NGT in place, right jugular TLC - Respiratory Exam Respiratory Exam: Clear to Ausculation Bilateral - Cardiovascular Exam Cardiovascular Exam: +S1, +S2 - GI/Abdominal Exam GI & Abdominal Exam: Soft, Normal Bowel Sounds. absent: Distended, Tenderness - Rectal Exam Rectal Exam: Deferred - Extremities Exam Extremities Exam: Normal Inspection. absent: Pedal Edema, Tenderness - Neurological Exam Neurological Exam: Alert, Awake, Oriented x3 Neuro motor strength exam: Left Upper Extremity: 0/5, Right Upper Extremity: 5/5, Right Lower Extremity: 0/5 Left-sided facial droop Left-sided gaze - Skin Skin Exam: Dry, Intact, Normal Color, Warm - Medications Active Medications: Active Medications Generic Name Dose Route Start Last Admin Trade Name Freq PRN Reason Stop Dose Admin Acetaminophen 650 mg 08/12/18 09:41 08/12/18 15:26 Tylenol 650mg/20.3ml Solution Ud PO 650 mg Q6 PRN Administration Temperature Sodium Chloride 500 mls @ 60 mls/hr 08/13/18 09:30 Hypertonic Saline 3% IV 08/13/18 17:49 [id number] Pantoprazole Sodium 40 mg 08/12/18 10:00 08/12/18 10:50 Protonix Inj IVP 40 mg DAILY MARCO ANTONIO Administration Rosuvastatin Calcium 20 mg 08/11/18 22:00 08/12/18 21:52 Crestor NG 20 mg HS MARCO ANTONIO Administration - Patient Studies Lab Studies: Microbiology Studies 08/10/18 Unknown MRSA Culture (Admit) - Final Naris MRSA NOT DETECTED Lab Studies 08/13/18 08/13/18 08/13/18 Range/Units 06:15 06:15 06:15 WBC 10.3 (4.8-10.8) K/uL RBC 4.39 L (4.40-5.90) Mil/uL Hgb 12.7 (12.0-18.0) g/dL Hct 38.6 (35.0-51.0) % MCV 87.9 (80.0-94.0) fL MCH 29.0 (27.0-31.0) pg MCHC 33.0 (33.0-37.0) g/dL RDW 14.1 (11.5-14.5) % Plt Count 185 (130-400) K/uL MPV 8.8 (7.2-11.7) fL Neut % (Auto) 78.1 H (50.0-75.0) % Lymph % (Auto) 10.0 L (20.0-40.0) % [place] % (Auto) 11.4 H (0.0-10.0) % Eos % (Auto) 0.1 (0.0-4.0) % Baso % (Auto) 0.4 (0.0-2.0) % Neut # (Auto) 8.0 H (1.8-7.0) K/uL Lymph # (Auto) 1.0 (1.0-4.3) K/uL [place] # (Auto) 1.2 H (0.0-0.8) K/uL Eos # (Auto) 0.0 (0.0-0.7) K/uL Baso # (Auto) 0.0 (0.0-0.2) K/uL Sodium 149 H (132-148) mmol/L Potassium 3.8 (3.6-5.2) mmol/L Chloride 119 H (98-107) mmol/L Carbon Dioxide 25 (22-30) mmol/L Anion Gap 9 L (10-20) BUN 16 (9-20) mg/dL Creatinine 0.7 L (0.8-1.5) mg/dL Est GFR ( Amer) > 60 Est GFR (Non-Af Amer) > 60 POC Glucose (mg/dL) (65-110) mg/dL Random Glucose 110 (75-110) mg/dL Serum Osmolality 315 H (272-300) mosm/kg Calcium 8.4 L (8.6-10.4) mg/dl Total Bilirubin 0.6 (0.2-1.3) mg/dL AST 34 (17-59) U/L ALT 21 (21-72) U/L Alkaline Phosphatase 65 (38-126) U/L Total Protein 6.8 (6.3-8.3) g/dL Albumin 3.7 (3.5-5.0) g/dL Globulin 3.1 (2.2-3.9) gm/dL Albumin/Globulin Ratio 1.2 (1.0-2.1) Urine Color (YELLOW) Urine Clarity (Clear) Urine pH (5.0-8.0) Ur Specific [place] (1.003-1.030) Urine Protein (NEGATIVE) mg/dL Urine Glucose (UA) (Normal) mg/dL Urine Ketones (NEGATIVE) mg/dL Urine Blood (NEGATIVE) Urine Nitrate (NEGATIVE) Urine Bilirubin (NEGATIVE) Urine Urobilinogen (0.2-1.0) mg/dL Ur Leukocyte Esterase (Negative) Pravin/uL Urine WBC (Auto) (0-5) /hpf Urine RBC (Auto) (0-3) /hpf Urine Bacteria (<OCC) 08/13/18 08/13/18 08/13/18 Range/Units 06:08 06:06 00:27 WBC (4.8-10.8) K/uL RBC (4.40-5.90) Mil/uL Hgb (12.0-18.0) g/dL Hct (35.0-51.0) % MCV (80.0-94.0) fL MCH (27.0-31.0) pg MCHC (33.0-37.0) g/dL RDW (11.5-14.5) % Plt Count (130-400) K/uL MPV (7.2-11.7) fL Neut % (Auto) (50.0-75.0) % Lymph % (Auto) (20.0-40.0) % [place] % (Auto) (0.0-10.0) % Eos % (Auto) (0.0-4.0) % Baso % (Auto) (0.0-2.0) % Neut # (Auto) (1.8-7.0) K/uL Lymph # (Auto) (1.0-4.3) K/uL [place] # (Auto) (0.0-0.8) K/uL Eos # (Auto) (0.0-0.7) K/uL Baso # (Auto) (0.0-0.2) K/uL Sodium (132-148) mmol/L Potassium (3.6-5.2) mmol/L Chloride (98-107) mmol/L Carbon Dioxide (22-30) mmol/L Anion Gap (10-20) BUN (9-20) mg/dL Creatinine (0.8-1.5) mg/dL Est GFR ( Amer) Est GFR (Non-Af Amer) POC Glucose (mg/dL) 94 48 L (65-110) mg/dL Random Glucose (75-110) mg/dL Serum Osmolality 314 H (272-300) mosm/kg Calcium (8.6-10.4) mg/dl Total Bilirubin (0.2-1.3) mg/dL AST (17-59) U/L ALT (21-72) U/L Alkaline Phosphatase (38-126) U/L Total Protein (6.3-8.3) g/dL Albumin (3.5-5.0) g/dL Globulin (2.2-3.9) gm/dL Albumin/Globulin Ratio (1.0-2.1) Urine Color (YELLOW) Urine Clarity (Clear) Urine pH (5.0-8.0) Ur Specific [place] (1.003-1.030) Urine Protein (NEGATIVE) mg/dL Urine Glucose (UA) (Normal) mg/dL Urine Ketones (NEGATIVE) mg/dL Urine Blood (NEGATIVE) Urine Nitrate (NEGATIVE) Urine Bilirubin (NEGATIVE) Urine Urobilinogen (0.2-1.0) mg/dL Ur Leukocyte Esterase (Negative) Pravin/uL Urine WBC (Auto) (0-5) /hpf Urine RBC (Auto) (0-3) /hpf Urine Bacteria (<OCC) 08/13/18 08/13/18 08/12/18 Range/Units 00:02 00:00 17:52 WBC (4.8-10.8) K/uL RBC (4.40-5.90) Mil/uL Hgb (12.0-18.0) g/dL Hct (35.0-51.0) % MCV (80.0-94.0) fL MCH (27.0-31.0) pg MCHC (33.0-37.0) g/dL RDW (11.5-14.5) % Plt Count (130-400) K/uL MPV (7.2-11.7) fL Neut % (Auto) (50.0-75.0) % Lymph % (Auto) (20.0-40.0) % [place] % (Auto) (0.0-10.0) % Eos % (Auto) (0.0-4.0) % Baso % (Auto) (0.0-2.0) % Neut # (Auto) (1.8-7.0) K/uL Lymph # (Auto) (1.0-4.3) K/uL [place] # (Auto) (0.0-0.8) K/uL Eos # (Auto) (0.0-0.7) K/uL Baso # (Auto) (0.0-0.2) K/uL Sodium 147 (132-148) mmol/L Potassium 3.8 (3.6-5.2) mmol/L Chloride 118 H (98-107) mmol/L Carbon Dioxide 25 (22-30) mmol/L Anion Gap 8 L (10-20) BUN 15 (9-20) mg/dL Creatinine 0.7 L (0.8-1.5) mg/dL Est GFR ( Amer) > 60 Est GFR (Non-Af Amer) > 60 POC Glucose (mg/dL) 95 (65-110) mg/dL Random Glucose 106 (75-110) mg/dL Serum Osmolality 311 H (272-300) mosm/kg Calcium 8.5 L (8.6-10.4) mg/dl Total Bilirubin (0.2-1.3) mg/dL AST (17-59) U/L ALT (21-72) U/L Alkaline Phosphatase (38-126) U/L Total Protein (6.3-8.3) g/dL Albumin (3.5-5.0) g/dL Globulin (2.2-3.9) gm/dL Albumin/Globulin Ratio (1.0-2.1) Urine Color (YELLOW) Urine Clarity (Clear) Urine pH (5.0-8.0) Ur Specific [place] (1.003-1.030) Urine Protein (NEGATIVE) mg/dL Urine Glucose (UA) (Normal) mg/dL Urine Ketones (NEGATIVE) mg/dL Urine Blood (NEGATIVE) Urine Nitrate (NEGATIVE) Urine Bilirubin (NEGATIVE) Urine Urobilinogen (0.2-1.0) mg/dL Ur Leukocyte Esterase (Negative) Pravin/uL Urine WBC (Auto) (0-5) /hpf Urine RBC (Auto) (0-3) /hpf Urine Bacteria (<OCC) 08/12/18 08/12/18 08/12/18 Range/Units 17:52 16:25 11:56 WBC (4.8-10.8) K/uL RBC (4.40-5.90) Mil/uL Hgb (12.0-18.0) g/dL Hct (35.0-51.0) % MCV (80.0-94.0) fL MCH (27.0-31.0) pg MCHC (33.0-37.0) g/dL RDW (11.5-14.5) % Plt Count (130-400) K/uL MPV (7.2-11.7) fL Neut % (Auto) (50.0-75.0) % Lymph % (Auto) (20.0-40.0) % [place] % (Auto) (0.0-10.0) % Eos % (Auto) (0.0-4.0) % Baso % (Auto) (0.0-2.0) % Neut # (Auto) (1.8-7.0) K/uL Lymph # (Auto) (1.0-4.3) K/uL [place] # (Auto) (0.0-0.8) K/uL Eos # (Auto) (0.0-0.7) K/uL Baso # (Auto) (0.0-0.2) K/uL Sodium 147 145 (132-148) mmol/L Potassium 3.8 3.8 (3.6-5.2) mmol/L Chloride 116 H 113 H (98-107) mmol/L Carbon Dioxide 26 25 (22-30) mmol/L Anion Gap 8 L 12 (10-20) BUN 14 14 (9-20) mg/dL Creatinine 0.8 0.7 L (0.8-1.5) mg/dL Est GFR ( Amer) > 60 > 60 Est GFR (Non-Af Amer) > 60 > 60 POC Glucose (mg/dL) 99 (65-110) mg/dL Random Glucose 103 106 (75-110) mg/dL Serum Osmolality (272-300) mosm/kg Calcium 8.3 L 8.1 L (8.6-10.4) mg/dl Total Bilirubin (0.2-1.3) mg/dL AST (17-59) U/L ALT (21-72) U/L Alkaline Phosphatase (38-126) U/L Total Protein (6.3-8.3) g/dL Albumin (3.5-5.0) g/dL Globulin (2.2-3.9) gm/dL Albumin/Globulin Ratio (1.0-2.1) Urine Color (YELLOW) Urine Clarity (Clear) Urine pH (5.0-8.0) Ur Specific [place] (1.003-1.030) Urine Protein (NEGATIVE) mg/dL Urine Glucose (UA) (Normal) mg/dL Urine Ketones (NEGATIVE) mg/dL Urine Blood (NEGATIVE) Urine Nitrate (NEGATIVE) Urine Bilirubin (NEGATIVE) Urine Urobilinogen (0.2-1.0) mg/dL Ur Leukocyte Esterase (Negative) Pravin/uL Urine WBC (Auto) (0-5) /hpf Urine RBC (Auto) (0-3) /hpf Urine Bacteria (<OCC) 08/12/18 08/12/18 08/11/18 Range/Units 11:50 11:10 11:14 WBC (4.8-10.8) K/uL RBC (4.40-5.90) Mil/uL Hgb (12.0-18.0) g/dL Hct (35.0-51.0) % MCV (80.0-94.0) fL MCH (27.0-31.0) pg MCHC (33.0-37.0) g/dL RDW (11.5-14.5) % Plt Count (130-400) K/uL MPV (7.2-11.7) fL Neut % (Auto) (50.0-75.0) % Lymph % (Auto) (20.0-40.0) % [place] % (Auto) (0.0-10.0) % Eos % (Auto) (0.0-4.0) % Baso % (Auto) (0.0-2.0) % Neut # (Auto) (1.8-7.0) K/uL Lymph # (Auto) (1.0-4.3) K/uL [place] # (Auto) (0.0-0.8) K/uL Eos # (Auto) (0.0-0.7) K/uL Baso # (Auto) (0.0-0.2) K/uL Sodium (132-148) mmol/L Potassium (3.6-5.2) mmol/L Chloride (98-107) mmol/L Carbon Dioxide (22-30) mmol/L Anion Gap (10-20) BUN (9-20) mg/dL Creatinine (0.8-1.5) mg/dL Est GFR ( Amer) Est GFR (Non-Af Amer) POC Glucose (mg/dL) 102 109 (65-110) mg/dL Random Glucose (75-110) mg/dL Serum Osmolality (272-300) mosm/kg Calcium (8.6-10.4) mg/dl Total Bilirubin (0.2-1.3) mg/dL AST (17-59) U/L ALT (21-72) U/L Alkaline Phosphatase (38-126) U/L Total Protein (6.3-8.3) g/dL Albumin (3.5-5.0) g/dL Globulin (2.2-3.9) gm/dL Albumin/Globulin Ratio (1.0-2.1) Urine Color Yellow (YELLOW) Urine Clarity Clear (Clear) Urine pH 7.0 (5.0-8.0) Ur Specific [place] 1.016 (1.003-1.030) Urine Protein Negative (NEGATIVE) mg/dL Urine Glucose (UA) Normal (Normal) mg/dL Urine Ketones Trace (NEGATIVE) mg/dL Urine Blood Negative (NEGATIVE) Urine Nitrate Negative (NEGATIVE) Urine Bilirubin Negative (NEGATIVE) Urine Urobilinogen 4.0 (0.2-1.0) mg/dL Ur Leukocyte Esterase Neg (Negative) Pravin/uL Urine WBC (Auto) 1 (0-5) /hpf Urine RBC (Auto) < 1 (0-3) /hpf Urine Bacteria Rare (<OCC) Laboratory Results - last 24 hr 08/11/18 08/12/18 08/12/18 11:14 11:10 11:50 WBC RBC Hgb Hct MCV MCH MCHC RDW Plt Count MPV Neut % (Auto) Lymph % (Auto) [place] % (Auto) Eos % (Auto) Baso % (Auto) Neut # (Auto) Lymph # (Auto) [place] # (Auto) Eos # (Auto) Baso # (Auto) Sodium Potassium Chloride Carbon Dioxide Anion Gap BUN Creatinine Est GFR ( Amer) Est GFR (Non-Af Amer) POC Glucose (mg/dL) 109 102 Random Glucose Serum Osmolality Calcium Total Bilirubin AST ALT Alkaline Phosphatase Total Protein Albumin Globulin Albumin/Globulin Ratio Urine Color Yellow Urine Clarity Clear Urine pH 7.0 Ur Specific [place] 1.016 Urine Protein Negative Urine Glucose (UA) Normal Urine Ketones Trace Urine Blood Negative Urine Nitrate Negative Urine Bilirubin Negative Urine Urobilinogen 4.0 Ur Leukocyte Esterase Neg Urine WBC (Auto) 1 Urine RBC (Auto) < 1 Urine Bacteria Rare 08/12/18 08/12/18 08/12/18 11:56 16:25 17:52 WBC RBC Hgb Hct MCV MCH MCHC RDW Plt Count MPV Neut % (Auto) Lymph % (Auto) [place] % (Auto) Eos % (Auto) Baso % (Auto) Neut # (Auto) Lymph # (Auto) [place] # (Auto) Eos # (Auto) Baso # (Auto) Sodium 145 147 Potassium 3.8 3.8 Chloride 113 H 116 H Carbon Dioxide 25 26 Anion Gap 12 8 L BUN 14 14 Creatinine 0.7 L 0.8 Est GFR ( Amer) > 60 > 60 Est GFR (Non-Af Amer) > 60 > 60 POC Glucose (mg/dL) 99 Random Glucose 106 103 Serum Osmolality Calcium 8.1 L 8.3 L Total Bilirubin AST ALT Alkaline Phosphatase Total Protein Albumin Globulin Albumin/Globulin Ratio Urine Color Urine Clarity Urine pH Ur Specific [place] Urine Protein Urine Glucose (UA) Urine Ketones Urine Blood Urine Nitrate Urine Bilirubin Urine Urobilinogen Ur Leukocyte Esterase Urine WBC (Auto) Urine RBC (Auto) Urine Bacteria 08/12/18 08/13/18 08/13/18 17:52 00:00 00:02 WBC RBC Hgb Hct MCV MCH MCHC RDW Plt Count MPV Neut % (Auto) Lymph % (Auto) [place] % (Auto) Eos % (Auto) Baso % (Auto) Neut # (Auto) Lymph # (Auto) [place] # (Auto) Eos # (Auto) Baso # (Auto) Sodium 147 Potassium 3.8 Chloride 118 H Carbon Dioxide 25 Anion Gap 8 L BUN 15 Creatinine 0.7 L Est GFR ( Amer) > 60 Est GFR (Non-Af Amer) > 60 POC Glucose (mg/dL) 95 Random Glucose 106 Serum Osmolality 311 H Calcium 8.5 L Total Bilirubin AST ALT Alkaline Phosphatase Total Protein Albumin Globulin Albumin/Globulin Ratio Urine Color Urine Clarity Urine pH Ur Specific [place] Urine Protein Urine Glucose (UA) Urine Ketones Urine Blood Urine Nitrate Urine Bilirubin Urine Urobilinogen Ur Leukocyte Esterase Urine WBC (Auto) Urine RBC (Auto) Urine Bacteria 08/13/18 08/13/18 08/13/18 00:27 06:06 06:08 WBC RBC Hgb Hct MCV MCH MCHC RDW Plt Count MPV Neut % (Auto) Lymph % (Auto) [place] % (Auto) Eos % (Auto) Baso % (Auto) Neut # (Auto) Lymph # (Auto) [place] # (Auto) Eos # (Auto) Baso # (Auto) Sodium Potassium Chloride Carbon Dioxide Anion Gap BUN Creatinine Est GFR ( Amer) Est GFR (Non-Af Amer) POC Glucose (mg/dL) 48 L 94 Random Glucose Serum Osmolality 314 H Calcium Total Bilirubin AST ALT Alkaline Phosphatase Total Protein Albumin Globulin Albumin/Globulin Ratio Urine Color Urine Clarity Urine pH Ur Specific [place] Urine Protein Urine Glucose (UA) Urine Ketones Urine Blood Urine Nitrate Urine Bilirubin Urine Urobilinogen Ur Leukocyte Esterase Urine WBC (Auto) Urine RBC (Auto) Urine Bacteria 08/13/18 08/13/18 08/13/18 06:15 06:15 06:15 WBC 10.3 RBC 4.39 L Hgb 12.7 Hct 38.6 MCV 87.9 MCH 29.0 MCHC 33.0 RDW 14.1 Plt Count 185 MPV 8.8 Neut % (Auto) 78.1 H Lymph % (Auto) 10.0 L [place] % (Auto) 11.4 H Eos % (Auto) 0.1 Baso % (Auto) 0.4 Neut # (Auto) 8.0 H Lymph # (Auto) 1.0 [place] # (Auto) 1.2 H Eos # (Auto) 0.0 Baso # (Auto) 0.0 Sodium 149 H Potassium 3.8 Chloride 119 H Carbon Dioxide 25 Anion Gap 9 L BUN 16 Creatinine 0.7 L Est GFR ( Amer) > 60 Est GFR (Non-Af Amer) > 60 POC Glucose (mg/dL) Random Glucose 110 Serum Osmolality 315 H Calcium 8.4 L Total Bilirubin 0.6 AST 34 ALT 21 Alkaline Phosphatase 65 Total Protein 6.8 Albumin 3.7 Globulin 3.1 Albumin/Globulin Ratio 1.2 Urine Color Urine Clarity Urine pH Ur Specific [place] Urine Protein Urine Glucose (UA) Urine Ketones Urine Blood Urine Nitrate Urine Bilirubin Urine Urobilinogen Ur Leukocyte Esterase Urine WBC (Auto) Urine RBC (Auto) Urine Bacteria Fingerstick Blood Sugar Results: 94 Assessment/Plan - Assessment and Plan (Free Text) Assessment: Mr. Aguayo is a 52-year-old man with no known past medical history, who presented to the ED in the morning with left side weakness. Non-contrast CT scan of the head was done in the ED and showed a large right cerebral infarct with 4 mm midline shift. He was given aspirin and transferred to the ICU after he became more lethargic. A repeat non-contrast CT scan of the head was done at around 12 PM today and showed worsening midline shift. The patient is able to be aroused at this time and was treated with hypertonic saline. Neuro: - Acute right MCA infarct with 9.6mm midline shift and hemorrhagic conversion - Dr. Marvin consulted; recommendations appreciated - CT Head (08/13/18) * Larger subacute MCA territory branch infarct with what appears to represent hemorrhagic conversion changes in the right basal ganglia. Moderate to fairly significant mass-effect with compression of the right cerebral hemisphere including right lateral ventrical which is shifted to the left side. Midline shift of the septum pellucidum estimated at approximately 10mm. Mild dilatation of the left lateral ventricle likely due to compression at the level of the left foramen of Monro. - CT head (08/12/18) * Hemorrhage conversion of known large right MCA territory infarction with local regional mass effect, diffuse cerebral edema, and 11mm midline from right to left. interval development of right SOTO territory infarction involving the paramedian frontal lobe. - CT Head (08/11/18) * large on MCA branch territory infarct involving right basal ganglia and right posterior frotnoparietal region extending to vertex with mass effect with overlying sulcal effacement, compression of the right lateral ventricle and shift of the septum pellucidum from right to left lateral ventricle suggesting mild early compressive effects at the level of left foramen of Garza. No defi nitive evidence of acute intracranial hemorrhage. - CT head/neck * No evidence of occlusion, dissection or significatn stenosis of the cervical caroitd or vertebral circulation. mild atheroscelroritc plauqe changes seen both cartoid siphons. no evidence of large aneurysm nor vascular malformation. - NS 3% @ 60ml/hrs * Goal serum sodium of 145-150 and serum osm of less than 320 * Vv=986, Oss= 314 * Discontinued - Neurosurgery Dr. 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 Bud Bustamante PGY1 <Simone Farrell - Last Filed: 08/13/18 17:51> CCU Objective - Vital Signs / Intake & Output Vital Signs (Last 4 hours): Vital Signs Pulse Resp BP Pulse Ox 08/13/18 15:26 82 20 122/92 H 99 08/13/18 14:26 75 15 122/86 99 Intake and Output (Last 8hrs): Intake & Output 08/13/18 08/13/18 08/13/18 06:59 14:59 22:59 Intake Total 510 360 60 Output Total 1400 Balance -890 360 60 Weight 220 lb Intake: Intake, IV Amount 480 360 60 Right Proximal Port 480 360 60 Internal Jugular Other 30 Output: Urine 1400 Urine, Voided 1400 Other: # Bowel Movements 0 - Medications Active Medications: Active Medications Generic Name Dose Route Start Last Admin Trade Name Freq PRN Reason Stop Dose Admin Acetaminophen 650 mg 08/12/18 09:41 08/12/18 15:26 Tylenol 650mg/20.3ml Solution Ud PO 650 mg Q6 PRN Administration Temperature Sodium Chloride 500 mls @ 30 mls/hr 08/13/18 15:38 08/13/18 17:09 Hypertonic Saline 3% IV 08/14/18 02:09 30 mls/hr .[id number] ONE Administration Pantoprazole Sodium 40 mg 08/12/18 10:00 08/13/18 10:58 Protonix Inj IVP 40 mg DAILY MARCO ANTONIO Administration Rosuvastatin Calcium 20 mg 08/11/18 22:00 08/12/18 21:52 Crestor NG 20 mg HS MARCO ANTONIO Administration Senna/Docusate Sodium 1 tab 08/13/18 12:00 08/13/18 17:11 Senokot S 50 Mg-8.6 Mg PO 1 tab BID MARCO ANTONIO Administration - Patient Studies Lab Studies: Microbiology Studies 08/12/18 11:50 Blood Culture - Preliminary Blood NO GROWTH AFTER 24 HOURS 08/12/18 11:50 Blood Culture - Preliminary Blood NO GROWTH AFTER 24 HOURS Lab Studies 08/13/18 08/13/18 08/13/18 Range/Units 17:24 17:24 11:08 WBC (4.8-10.8) K/uL RBC (4.40-5.90) Mil/uL Hgb (12.0-18.0) g/dL Hct (35.0-51.0) % MCV (80.0-94.0) fL MCH (27.0-31.0) pg MCHC (33.0-37.0) g/dL RDW (11.5-14.5) % Plt Count (130-400) K/uL MPV (7.2-11.7) fL Neut % (Auto) (50.0-75.0) % Lymph % (Auto) (20.0-40.0) % [place] % (Auto) (0.0-10.0) % Eos % (Auto) (0.0-4.0) % Baso % (Auto) (0.0-2.0) % Neut # (Auto) (1.8-7.0) K/uL Lymph # (Auto) (1.0-4.3) K/uL [place] # (Auto) (0.0-0.8) K/uL Eos # (Auto) (0.0-0.7) K/uL Baso # (Auto) (0.0-0.2) K/uL Sodium 150 H (132-148) mmol/L Potassium 3.7 (3.6-5.2) mmol/L Chloride 115 H (98-107) mmol/L Carbon Dioxide 25 (22-30) mmol/L Anion Gap 13 (10-20) BUN 18 (9-20) mg/dL Creatinine 0.8 (0.8-1.5) mg/dL Est GFR ( Amer) > 60 Est GFR (Non-Af Amer) > 60 POC Glucose (mg/dL) 105 (65-110) mg/dL Random Glucose 104 (75-110) mg/dL Serum Osmolality 323 H (272-300) mosm/kg Calcium 8.9 (8.6-10.4) mg/dl Total Bilirubin (0.2-1.3) mg/dL AST (17-59) U/L ALT (21-72) U/L Alkaline Phosphatase (38-126) U/L Total Protein (6.3-8.3) g/dL Albumin (3.5-5.0) g/dL Globulin (2.2-3.9) gm/dL Albumin/Globulin Ratio (1.0-2.1) 08/13/18 08/13/18 08/13/18 Range/Units 06:15 06:15 06:15 WBC 10.3 (4.8-10.8) K/uL RBC 4.39 L (4.40-5.90) Mil/uL Hgb 12.7 (12.0-18.0) g/dL Hct 38.6 (35.0-51.0) % MCV 87.9 (80.0-94.0) fL MCH 29.0 (27.0-31.0) pg MCHC 33.0 (33.0-37.0) g/dL RDW 14.1 (11.5-14.5) % Plt Count 185 (130-400) K/uL MPV 8.8 (7.2-11.7) fL Neut % (Auto) 78.1 H (50.0-75.0) % Lymph % (Auto) 10.0 L (20.0-40.0) % [place] % (Auto) 11.4 H (0.0-10.0) % Eos % (Auto) 0.1 (0.0-4.0) % Baso % (Auto) 0.4 (0.0-2.0) % Neut # (Auto) 8.0 H (1.8-7.0) K/uL Lymph # (Auto) 1.0 (1.0-4.3) K/uL [place] # (Auto) 1.2 H (0.0-0.8) K/uL Eos # (Auto) 0.0 (0.0-0.7) K/uL Baso # (Auto) 0.0 (0.0-0.2) K/uL Sodium 149 H (132-148) mmol/L Potassium 3.8 (3.6-5.2) mmol/L Chloride 119 H (98-107) mmol/L Carbon Dioxide 25 (22-30) mmol/L Anion Gap 9 L (10-20) BUN 16 (9-20) mg/dL Creatinine 0.7 L (0.8-1.5) mg/dL Est GFR ( Amer) > 60 Est GFR (Non-Af Amer) > 60 POC Glucose (mg/dL) (65-110) mg/dL Random Glucose 110 (75-110) mg/dL Serum Osmolality 315 H (272-300) mosm/kg Calcium 8.4 L (8.6-10.4) mg/dl Total Bilirubin 0.6 (0.2-1.3) mg/dL AST 34 (17-59) U/L ALT 21 (21-72) U/L Alkaline Phosphatase 65 (38-126) U/L Total Protein 6.8 (6.3-8.3) g/dL Albumin 3.7 (3.5-5.0) g/dL Globulin 3.1 (2.2-3.9) gm/dL Albumin/Globulin Ratio 1.2 (1.0-2.1) 08/13/18 08/13/18 08/13/18 Range/Units 06:08 06:06 00:27 WBC (4.8-10.8) K/uL RBC (4.40-5.90) Mil/uL Hgb (12.0-18.0) g/dL Hct (35.0-51.0) % MCV (80.0-94.0) fL MCH (27.0-31.0) pg MCHC (33.0-37.0) g/dL RDW (11.5-14.5) % Plt Count (130-400) K/uL MPV (7.2-11.7) fL Neut % (Auto) (50.0-75.0) % Lymph % (Auto) (20.0-40.0) % [place] % (Auto) (0.0-10.0) % Eos % (Auto) (0.0-4.0) % Baso % (Auto) (0.0-2.0) % Neut # (Auto) (1.8-7.0) K/uL Lymph # (Auto) (1.0-4.3) K/uL [place] # (Auto) (0.0-0.8) K/uL Eos # (Auto) (0.0-0.7) K/uL Baso # (Auto) (0.0-0.2) K/uL Sodium (132-148) mmol/L Potassium (3.6-5.2) mmol/L Chloride (98-107) mmol/L Carbon Dioxide (22-30) mmol/L Anion Gap (10-20) BUN (9-20) mg/dL Creatinine (0.8-1.5) mg/dL Est GFR ( Amer) Est GFR (Non-Af Amer) POC Glucose (mg/dL) 94 48 L (65-110) mg/dL Random Glucose (75-110) mg/dL Serum Osmolality 314 H (272-300) mosm/kg Calcium (8.6-10.4) mg/dl Total Bilirubin (0.2-1.3) mg/dL AST (17-59) U/L ALT (21-72) U/L Alkaline Phosphatase (38-126) U/L Total Protein (6.3-8.3) g/dL Albumin (3.5-5.0) g/dL Globulin (2.2-3.9) gm/dL Albumin/Globulin Ratio (1.0-2.1) 08/13/18 08/13/18 08/12/18 Range/Units 00:02 00:00 17:52 WBC (4.8-10.8) K/uL RBC (4.40-5.90) Mil/uL Hgb (12.0-18.0) g/dL Hct (35.0-51.0) % MCV (80.0-94.0) fL MCH (27.0-31.0) pg MCHC (33.0-37.0) g/dL RDW (11.5-14.5) % Plt Count (130-400) K/uL MPV (7.2-11.7) fL Neut % (Auto) (50.0-75.0) % Lymph % (Auto) (20.0-40.0) % [place] % (Auto) (0.0-10.0) % Eos % (Auto) (0.0-4.0) % Baso % (Auto) (0.0-2.0) % Neut # (Auto) (1.8-7.0) K/uL Lymph # (Auto) (1.0-4.3) K/uL [place] # (Auto) (0.0-0.8) K/uL Eos # (Auto) (0.0-0.7) K/uL Baso # (Auto) (0.0-0.2) K/uL Sodium 147 (132-148) mmol/L Potassium 3.8 (3.6-5.2) mmol/L Chloride 118 H (98-107) mmol/L Carbon Dioxide 25 (22-30) mmol/L Anion Gap 8 L (10-20) BUN 15 (9-20) mg/dL Creatinine 0.7 L (0.8-1.5) mg/dL Est GFR ( Amer) > 60 Est GFR (Non-Af Amer) > 60 POC Glucose (mg/dL) 95 (65-110) mg/dL Random Glucose 106 (75-110) mg/dL Serum Osmolality 311 H (272-300) mosm/kg Calcium 8.5 L (8.6-10.4) mg/dl Total Bilirubin (0.2-1.3) mg/dL AST (17-59) U/L ALT (21-72) U/L Alkaline Phosphatase (38-126) U/L Total Protein (6.3-8.3) g/dL Albumin (3.5-5.0) g/dL Globulin (2.2-3.9) gm/dL Albumin/Globulin Ratio (1.0-2.1) 08/12/18 Range/Units 17:52 WBC (4.8-10.8) K/uL RBC (4.40-5.90) Mil/uL Hgb (12.0-18.0) g/dL Hct (35.0-51.0) % MCV (80.0-94.0) fL MCH (27.0-31.0) pg MCHC (33.0-37.0) g/dL RDW (11.5-14.5) % Plt Count (130-400) K/uL MPV (7.2-11.7) fL Neut % (Auto) (50.0-75.0) % Lymph % (Auto) (20.0-40.0) % [place] % (Auto) (0.0-10.0) % Eos % (Auto) (0.0-4.0) % Baso % (Auto) (0.0-2.0) % Neut # (Auto) (1.8-7.0) K/uL Lymph # (Auto) (1.0-4.3) K/uL [place] # (Auto) (0.0-0.8) K/uL Eos # (Auto) (0.0-0.7) K/uL Baso # (Auto) (0.0-0.2) K/uL Sodium 147 (132-148) mmol/L Potassium 3.8 (3.6-5.2) mmol/L Chloride 116 H (98-107) mmol/L Carbon Dioxide 26 (22-30) mmol/L Anion Gap 8 L (10-20) BUN 14 (9-20) mg/dL Creatinine 0.8 (0.8-1.5) mg/dL Est GFR ( Amer) > 60 Est GFR (Non-Af Amer) > 60 POC Glucose (mg/dL) (65-110) mg/dL Random Glucose 103 (75-110) mg/dL Serum Osmolality (272-300) mosm/kg Calcium 8.3 L (8.6-10.4) mg/dl Total Bilirubin (0.2-1.3) mg/dL AST (17-59) U/L ALT (21-72) U/L Alkaline Phosphatase (38-126) U/L Total Protein (6.3-8.3) g/dL Albumin (3.5-5.0) g/dL Globulin (2.2-3.9) gm/dL Albumin/Globulin Ratio (1.0-2.1) Laboratory Results - last 24 hr 08/12/18 08/12/18 08/13/18 17:52 17:52 00:00 WBC RBC Hgb Hct MCV MCH MCHC RDW Plt Count MPV Neut % (Auto) Lymph % (Auto) [place] % (Auto) Eos % (Auto) Baso % (Auto) Neut # (Auto) Lymph # (Auto) [place] # (Auto) Eos # (Auto) Baso # (Auto) Sodium 147 147 Potassium 3.8 3.8 Chloride 116 H 118 H Carbon Dioxide 26 25 Anion Gap 8 L 8 L BUN 14 15 Creatinine 0.8 0.7 L Est GFR ( Amer) > 60 > 60 Est GFR (Non-Af Amer) > 60 > 60 POC Glucose (mg/dL) Random Glucose 103 106 Serum Osmolality 311 H Calcium 8.3 L 8.5 L Total Bilirubin AST ALT Alkaline Phosphatase Total Protein Albumin Globulin Albumin/Globulin Ratio 08/13/18 08/13/18 08/13/18 00:02 00:27 06:06 WBC RBC Hgb Hct MCV MCH MCHC RDW Plt Count MPV Neut % (Auto) Lymph % (Auto) [place] % (Auto) Eos % (Auto) Baso % (Auto) Neut # (Auto) Lymph # (Auto) [place] # (Auto) Eos # (Auto) Baso # (Auto) Sodium Potassium Chloride Carbon Dioxide Anion Gap BUN Creatinine Est GFR ( Amer) Est GFR (Non-Af Amer) POC Glucose (mg/dL) 95 48 L Random Glucose Serum Osmolality 314 H Calcium Total Bilirubin AST ALT Alkaline Phosphatase Total Protein Albumin Globulin Albumin/Globulin Ratio 08/13/18 08/13/18 08/13/18 06:08 06:15 06:15 WBC 10.3 RBC 4.39 L Hgb 12.7 Hct 38.6 MCV 87.9 MCH 29.0 MCHC 33.0 RDW 14.1 Plt Count 185 MPV 8.8 Neut % (Auto) 78.1 H Lymph % (Auto) 10.0 L [place] % (Auto) 11.4 H Eos % (Auto) 0.1 Baso % (Auto) 0.4 Neut # (Auto) 8.0 H Lymph # (Auto) 1.0 [place] # (Auto) 1.2 H Eos # (Auto) 0.0 Baso # (Auto) 0.0 Sodium 149 H Potassium 3.8 Chloride 119 H Carbon Dioxide 25 Anion Gap 9 L BUN 16 Creatinine 0.7 L Est GFR ( Amer) > 60 Est GFR (Non-Af Amer) > 60 POC Glucose (mg/dL) 94 Random Glucose 110 Serum Osmolality Calcium 8.4 L Total Bilirubin 0.6 AST 34 ALT 21 Alkaline Phosphatase 65 Total Protein 6.8 Albumin 3.7 Globulin 3.1 Albumin/Globulin Ratio 1.2 08/13/18 08/13/18 08/13/18 06:15 11:08 17:24 WBC RBC Hgb Hct MCV MCH MCHC RDW Plt Count MPV Neut % (Auto) Lymph % (Auto) [place] % (Auto) Eos % (Auto) Baso % (Auto) Neut # (Auto) Lymph # (Auto) [place] # (Auto) Eos # (Auto) Baso # (Auto) Sodium 150 H Potassium 3.7 Chloride 115 H Carbon Dioxide 25 Anion Gap 13 BUN 18 Creatinine 0.8 Est GFR ( Amer) > 60 Est GFR (Non-Af Amer) > 60 POC Glucose (mg/dL) 105 Random Glucose 104 Serum Osmolality 315 H Calcium 8.9 Total Bilirubin AST ALT Alkaline Phosphatase Total Protein Albumin Globulin Albumin/Globulin Ratio 08/13/18 17:24 WBC RBC Hgb Hct MCV MCH MCHC RDW Plt Count MPV Neut % (Auto) Lymph % (Auto) [place] % (Auto) Eos % (Auto) Baso % (Auto) Neut # (Auto) Lymph # (Auto) [place] # (Auto) Eos # (Auto) Baso # (Auto) Sodium Potassium Chloride Carbon Dioxide Anion Gap BUN Creatinine Est GFR ( Amer) Est GFR (Non-Af Amer) POC Glucose (mg/dL) Random Glucose Serum Osmolality 323 H Calcium Total Bilirubin AST ALT Alkaline Phosphatase Total Protein Albumin Globulin Albumin/Globulin Ratio Attending/Attestation - Attestation I have personally seen and examined this patient.: Yes I have fully participated in the care of the patient.: Yes I have reviewed all pertinent clinical information: Yes Notes (Text): 08/13/18 17:47 I have seen and examined the patient. Medical records, lab studies, and imaging were reviewed by me and a management plan was formulated on multidisciplinary rounds with resident Dr. Bustamante. I agree with their documented assessment and plan. Patient is clinically improved and stable. He has new hemorrhagic conversion on head CT. continue hypertonic saline at lower rate, to maintain NA-145-150. [address] tomorrow or earlier if any change in patient's clinical status. Critical Care Time 35 minutes. Multi-disciplinary rounds were performed with house staff, nursing, speech therapy, respiratory therapy, pharmacy and nutrition with integrated input from the primary team/attending and other consulting services. The documented time is cumulative and includes review of patient data/exams/labs/chart review and examination of the patient on rounds and throughout the day; time is exclusive of any procedures or teaching time.
[2018-08-13] MEDS: Docusate-Senna 50 mg-8.6 mg Tab PO SCH ×2 (12:56→17:11)
--- NOTE | 2018-08-13 12:57 | CP.PCM.PN ---
Subjective - Date & Time of Evaluation Date of Evaluation: 08/13/18 Time of Evaluation: 12:55 - Subjective Subjective: opens eyes to voice follows commands well o to name,hosp moves r side well dense L hemiparesis CT stable Na 149 improving slowly suggest cont medical mgmt Objective - Vital Signs/Intake and Output Vital Signs (last 24 hours): Temp Pulse Resp BP Pulse Ox 98.9 F 60 15 117/76 99 08/13/18 04:00 08/13/18 07:00 08/13/18 07:00 08/13/18 06:27 08/13/18 07:00 Intake and Output: 08/13/18 08/13/18 06:59 18:59 Intake Total 810 60 Output Total 1400 Balance -590 60 - Medications Medications: Current Medications Acetaminophen (Tylenol 650mg/20.3ml Solution Ud) 650 mg PO Q6 PRN PRN Reason: Temperature Last Admin: 08/12/18 15:26 Dose: 650 mg Sodium Chloride (Hypertonic Saline 3%) 500 mls @ 60 mls/hr IV .[id number] ONE Stop: 08/13/18 17:49 Last Admin: 08/13/18 10:56 Dose: 60 mls/hr Pantoprazole Sodium (Protonix Inj) 40 mg IVP DAILY [facility] Last Admin: 08/13/18 10:58 Dose: 40 mg Rosuvastatin Calcium (Crestor) 20 mg NG HS [facility] Last Admin: 08/12/18 21:52 Dose: 20 mg Senna/Docusate Sodium (Senokot S 50 Mg-8.6 Mg) 1 tab PO BID [facility] - Labs Labs: 08/13/18 06:15 08/13/18 06:15 PT 12.3 SECONDS (9.7-12.2) H 08/10/18 18:13 INR 1.1 08/10/18 18:13 APTT 30 SECONDS (21-34) 08/10/18 18:13
[2018-08-13] MEDS ORDERED: Sodium Chloride 3% 500 ML IV SCH ×2 (16:00→23:00)
--- NOTE | 2018-08-13 17:19 | CARD ---
APPROVED REPORT Date of service: 08/13/2018 EXAM: LIMITED Two-dimensional echocardiogram with saline bubble. Other Information Quality : GoodRhythm : INDICATION CVA/TIA Echo Enhancing Agent Indication: Rule Out Septal Defect Agent/Amount Used: Agitated Saline <Conclusion> LIMITED STUDY - CONTRAST STUDY WITH AGITATED SALINE. Negative study. No evidence inter-cavitary shunt
[2018-08-13 17:44] LABS: BLOOD UREA NITROGEN 18 mg/dL (9-20); CALCIUM 8.9 mg/dl (8.6-10.4); GFR NON-AFRICAN AMERICAN > 60
--- NOTE | 2018-08-13 18:56 | CP.PCM.PN ---
<Janette Chambers - Last Filed: 08/13/18 19:01> Subjective - Date & Time of Evaluation Date of Evaluation: 08/13/18 Time of Evaluation: 09:00 - Subjective Subjective: Neurology Follow Up Note Patient was seen and examined at bedside. Patient is more alert today, speaking more. Patient was able to feel and identify the painful stimuli in his left toe. Objective - Vital Signs/Intake and Output Vital Signs (last 24 hours): Temp Pulse Resp BP Pulse Ox 98.2 F 79 17 143/79 99 08/13/18 16:00 08/13/18 18:27 08/13/18 18:27 08/13/18 18:27 08/13/18 18:27 Intake and Output: 08/13/18 08/13/18 06:59 18:59 Intake Total 810 540 Output Total 1400 750 Balance -590 -210 - Medications Medications: Current Medications Acetaminophen (Tylenol 650mg/20.3ml Solution Ud) 650 mg PO Q6 PRN PRN Reason: Temperature Last Admin: 08/12/18 15:26 Dose: 650 mg Sodium Chloride (Hypertonic Saline 3%) 500 mls @ 30 mls/hr IV .[id number] ONE Stop: 08/14/18 02:09 Last Admin: 08/13/18 17:09 Dose: 30 mls/hr Pantoprazole Sodium (Protonix Inj) 40 mg IVP DAILY [facility] Last Admin: 08/13/18 10:58 Dose: 40 mg Rosuvastatin Calcium (Crestor) 20 mg NG HS [facility] Last Admin: 08/12/18 21:52 Dose: 20 mg Senna/Docusate Sodium (Senokot S 50 Mg-8.6 Mg) 1 tab PO BID [facility] Last Admin: 08/13/18 17:11 Dose: 1 tab - Labs Labs: 08/13/18 06:15 08/13/18 17:24 PT 12.3 SECONDS (9.7-12.2) H 08/10/18 18:13 INR 1.1 08/10/18 18:13 APTT 30 SECONDS (21-34) 08/10/18 18:13 - Constitutional Appears: No Acute Distress - Head Exam Head Exam: NORMAL INSPECTION, NORMOCEPHALIC - Eye Exam Eye Exam: PERRL - ENT Exam ENT Exam: Mucous Membranes Moist - Respiratory Exam Respiratory Exam: Clear to Ausculation Bilateral - Cardiovascular Exam Cardiovascular Exam: +S1, +S2 - GI/Abdominal Exam GI & Abdominal Exam: Soft, Normal Bowel Sounds. absent: Distended, Tenderness - Extremities Exam Extremities Exam: Normal Inspection. absent: Pedal Edema, Tenderness - Neurological Exam Neurological Exam: Alert, Awake, CN II-XII Intact, Oriented x3 Neuro motor strength exam: Left Upper Extremity: 0, Right Upper Extremity: 5, Left Lower Extremity: 0, Right Lower Extremity: 5 Additional comments: Patient identified painful stimuli in left great toe - Psychiatric Exam Psychiatric exam: Normal Affect, Normal Mood - Skin Skin Exam: Dry, Intact, Normal Color, Warm Assessment and Plan - Assessment and Plan (Free Text) Plan: Acute Right MCA with Hemorrhagic Conversion Imaging: - CT Head (08/11/18): large on MCA branch territory infarct involving right basal ganglia and right posterior frotnoparietal region extending to vertex with mass effect with overlying sulcal effacement, compression of the right lateral ventricle and shift of the septum pellucidum from right to left lateral ventricle suggesting mild early compressive effects at the level of left foramen of Garza. No definitive evidence of acute intracranial hemorrhage. - CT head/neck: no evidence of occlusion, dissection or significatn stenosis of the cervical caroitd or vertebral circulation. mild atheroscelroritc plauqe changes seen both cartoid siphons. no evidence of large aneurysm nor vascular malformation. - CT head (08/12/18): hemorrhage conversion of known large right MCA territory infarction with local regional mass effect, diffuse cerebral edema, and 11mm mid line from right to left. interval development of right SOTO territory infarction involving the paramedian frontal lobe. - CT Head (08/13/18): Larger subacute MCA territory branch infarct with what appears represent hemorrhagic conversion changes in the right basal ganglia. Moderate to fairly significant mass-effect with compression of the right cerebral hemisphere including the right lateral ventricle which is shifted to the left side. Midline shift of the septum pellucidum estimated at approxi mately 10 mm. Mild dilatation of the left lateral ventricle likely due to compression at the level of the left foramen of Garza. Management: - Continue with medical management as patient's vitals are stable, more responsive. - Neurosurgery to continue to follow if he worsens clinically - Serial Head CTs - Continue with NS 3% @ 30ml/hrs for a goal serum sodium of 145-150 and serum osm of less than 320. - Precautions to avoid increased ICP such as keeping his head elevated, avoiding fever, hypertension, hyperglycemia and constipation. Case discussed with Janette Will DO, PGY2 <Vick Marvin - Last Filed: 08/14/18 18:14> Objective - Vital Signs/Intake and Output Vital Signs (last 24 hours): Temp Pulse Resp BP Pulse Ox 98.5 F 77 17 112/70 95 08/14/18 04:00 08/14/18 16:06 08/14/18 16:06 08/14/18 16:06 08/14/18 16:06 Intake and Output: 08/14/18 08/14/18 06:59 18:59 Intake Total 910 70 Output Total 1200 Balance -290 70 - Medications Medications: Current Medications Acetaminophen (Tylenol 650mg/20.3ml Solution Ud) 650 mg PO Q6 PRN PRN Reason: Temperature Last Admin: 08/12/18 15:26 Dose: 650 mg Pantoprazole Sodium (Protonix Inj) 40 mg IVP DAILY [facility] Last Admin: 08/14/18 09:42 Dose: 40 mg Rosuvastatin Calcium (Crestor) 20 mg NG HS [facility] Last Admin: 08/13/18 21:24 Dose: 20 mg Senna/Docusate Sodium (Senokot S 50 Mg-8.6 Mg) 1 tab PO BID [facility] Last Admin: 08/14/18 17:23 Dose: 1 tab - Labs Labs: 08/14/18 06:44 08/14/18 06:44 PT 12.3 SECONDS (9.7-12.2) H 08/10/18 18:13 INR 1.1 08/10/18 18:13 APTT 30 SECONDS (21-34) 08/10/18 18:13 Assessment and Plan (1) Stroke Status: Acute Attending/Attestation - Attestation I have personally seen and examined this patient.: Yes I have fully participated in the care of the patient.: Yes I have reviewed all pertinent clinical information, including history, physical exam and plan: Yes Notes (Text): 08/14/18 18:13 I agree with the assessment and plan. So far, the patient is being managed well clinically with regard to ICP. Will continue serial CT head and follow neuro exam closely.
[2018-08-14 00:27] LABS: BLOOD UREA NITROGEN 19 mg/dL (9-20); CALCIUM 8.8 mg/dl (8.6-10.4); GFR NON-AFRICAN AMERICAN > 60
[2018-08-14] MEDS ORDERED: Sodium Chloride 3% 500 ML IV SCH (03:00)
[2018-08-14 06:48] LABS: BASO # 0.1 K/uL (0.0-0.2); BASO % 0.5 % (0.0-2.0); EOS % 0.3 % (0.0-4.0); HEMOGLOBIN 13.2 g/dL (12.0-18.0); LYMPH # 1.1 K/uL (1.0-4.3); LYMPH % 10.2 % (20.0-40.0); MEAN CELL VOLUME 88.2 fL (80.0-94.0); MEAN CORPUSCULAR HEMOGLOBIN 28.9 pg (27.0-31.0); MEAN CORPUSCULAR HGB CONC 32.8 g/dL (33.0-37.0); MEAN PLATELET VOLUME 9.5 fL (7.2-11.7); MONO % 9.5 % (0.0-10.0); NEUT # 8.3 K/uL (1.8-7.0); NEUT % 79.5 % (50.0-75.0); RBC 4.58 Mil/uL (4.40-5.90); RED CELL DISTRIBUTION WIDTH 13.7 % (11.5-14.5); WHITE BLOOD COUNT 10.5 K/uL (4.8-10.8)
[2018-08-14 07:04] LABS: BLOOD UREA NITROGEN 20 mg/dL (9-20); GFR NON-AFRICAN AMERICAN > 60
[2018-08-14] MEDS: Docusate-Senna 50 mg-8.6 mg Tab PO SCH ×2 (09:42→17:23)
--- NOTE | 2018-08-14 09:48 | CP.PCM.PN ---
Subjective - Date & Time of Evaluation Date of Evaluation: 08/14/18 Time of Evaluation: 09:30 - Subjective Subjective: Patient was seen and examined by me As mentioned previously the patient had a large CVA affecting the MCA area of basal ganglia as well as frontoparietal area. He then had a hemmoragic conversion. At this time neurosurgery has been fo llowing and per neurosurgery no interventions at this moment. He has been getting 3% hypertonic saline - and this was earlier this morning stopped. This morning was awake, alert, he was asking for water. Like previous he was able to follow basic commands including raising right arm and right legs. There is still left body weakness and facial droop as noted before. My Kiswahili is limted but he was able to follow basic commands in Kiswahili. With the right arm and right hands. Objective - Vital Signs/Intake and Output Vital Signs (last 24 hours): Temp Pulse Resp BP Pulse Ox 98.5 F 88 17 135/90 99 08/14/18 04:00 08/14/18 07:00 08/14/18 07:00 08/14/18 06:27 08/14/18 07:00 Intake and Output: 08/14/18 08/14/18 06:59 18:59 Intake Total 910 70 Output Total 1200 Balance -290 70 - Medications Medications: Current Medications Acetaminophen (Tylenol 650mg/20.3ml Solution Ud) 650 mg PO Q6 PRN PRN Reason: Temperature Last Admin: 08/12/18 15:26 Dose: 650 mg Pantoprazole Sodium (Protonix Inj) 40 mg IVP DAILY [facility] Last Admin: 08/14/18 09:42 Dose: 40 mg Rosuvastatin Calcium (Crestor) 20 mg NG HS [facility] Last Admin: 08/13/18 21:24 Dose: 20 mg Senna/Docusate Sodium (Senokot S 50 Mg-8.6 Mg) 1 tab PO BID [facility] Last Admin: 08/14/18 09:42 Dose: 1 tab - Labs Labs: 08/14/18 06:44 08/14/18 06:44 PT 12.3 SECONDS (9.7-12.2) H 08/10/18 18:13 INR 1.1 08/10/18 18:13 APTT 30 SECONDS (21-34) 08/10/18 18:13 - Constitutional Appears: Confused, Chronically Ill - Eye Exam Eye Exam: Normal appearance - Respiratory Exam Respiratory Exam: Clear to Ausculation Bilateral, NORMAL BREATHING PATTERN - Cardiovascular Exam Cardiovascular Exam: REGULAR RHYTHM - Neurological Exam Neurological Exam: Alert, Awake Neuro motor strength exam: Left Upper Extremity: 0, Right Upper Extremity: 4, Left Lower Extremity: 0, Right Lower Extremity: 4 - Psychiatric Exam Psychiatric exam: Depressed, Flat Affect Assessment and Plan - Assessment and Plan (Free Text) Assessment: Assessment and Plan (1) Hemmoragic 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 08/13: At this time the patient has been on 3% saline. Per staff he seems to be more awake then when they first met him yesterday. There will be additional CT scans later today. Neurosurgery is following the case. Pending echo at this time. CT Head (08/11/18): large on MCA branch territory infarct involving right basal ganglia and right posterior frotnoparietal region extending to vertex with mass effect with overlying sulcal effacement, compression of the right lateral ventricle and shift of the septum pellucidum from right to left lateral ventricle suggesting mild early compressive effects at the level of left foramen of Garza. No definitive evidence of acute intracranial hemorrhage. CT head and neck: no evidence of occlusion, dissection or significatn stenosis of the cervical caroitd or vertebral circulation. mild atheroscelroritc plauqe changes seen both cartoid siphons. no evidence of large aneurysm nor vascular malformation. CT head (08/12/18); hemorrhage conversion of known large right MCA territoty infarction with local regional mass effect, diffuse cerenral edema, and 11mm midline from right to left. interval development of right SOTO territory infarction involving the paramedian frontal lobe, Neurosurgery on board-->on route to eval the patient per discussion with nurse based on latest CT neurology on board-->not candidate for tpa/nor thrombectomy per neuro notes Seizure precautions aspiration precautions neurochecks q1 Status: Acute (2) ETOH abuse Assessment & Plan: monitor for withdrawal Status: Chronic (3) Impaired glucose tolerance Assessment & Plan: will need monitoring of his sugars repeat a1c in one year to prevent overt diabetes Status: Acute (4) Lipid disorder Assessment & Plan: elevated cholestrol: 271 LDL: 184 HDL: 59 T crestor 20mg NG HS (5) Leukocytosis Assessment & Plan: likely inflammatory reaction second to stroke ordered blood, urine studies (6) Prophylactic measure Assessment & Plan: chemical anticoagulation contraindicated in light of hemorrhagic conversion of MCA stroke SCDs b/l Prognosis poor Correct phone number of son Yayo: Yayo at [phone]
--- NOTE | 2018-08-14 10:38 | CP.PCM.PN ---
<Janette Chambers - Last Filed: 08/14/18 14:55> Subjective - Date & Time of Evaluation Date of Evaluation: 08/14/18 Time of Evaluation: 09:00 - Subjective Subjective: Neurology Follow Up Note Patient was seen and examined at bedside. Patient today is able to identify my placement in the room on his left side. Patient was able to feel and identify the painful stimuli in left upper arm. Objective - Vital Signs/Intake and Output Vital Signs (last 24 hours): Temp Pulse Resp BP Pulse Ox 98.5 F 88 17 135/90 99 08/14/18 04:00 08/14/18 07:00 08/14/18 07:00 08/14/18 06:27 08/14/18 07:00 Intake and Output: 08/14/18 08/14/18 06:59 18:59 Intake Total 910 70 Output Total 1200 Balance -290 70 - Medications Medications: Current Medications Acetaminophen (Tylenol 650mg/20.3ml Solution Ud) 650 mg PO Q6 PRN PRN Reason: Temperature Last Admin: 08/12/18 15:26 Dose: 650 mg Pantoprazole Sodium (Protonix Inj) 40 mg IVP DAILY [facility] Last Admin: 08/14/18 09:42 Dose: 40 mg Rosuvastatin Calcium (Crestor) 20 mg NG HS [facility] Last Admin: 08/13/18 21:24 Dose: 20 mg Senna/Docusate Sodium (Senokot S 50 Mg-8.6 Mg) 1 tab PO BID [facility] Last Admin: 08/14/18 09:42 Dose: 1 tab - Labs Labs: 08/14/18 06:44 08/14/18 06:44 PT 12.3 SECONDS (9.7-12.2) H 08/10/18 18:13 INR 1.1 08/10/18 18:13 APTT 30 SECONDS (21-34) 08/10/18 18:13 - Additional Findings Additional findings: - Constitutional Appears: No Acute Distress - Head Exam Head Exam: NORMAL INSPECTION, NORMOCEPHALIC - Eye Exam Eye Exam: PERRL - ENT Exam ENT Exam: Mucous Membranes Moist - Respiratory Exam Respiratory Exam: Clear to Ausculation Bilateral - Cardiovascular Exam Cardiovascular Exam: +S1, +S2 - GI/Abdominal Exam GI & Abdominal Exam: Soft, Normal Bowel Sounds. absent: Distended, Tenderness - Extremities Exam Extremities Exam: Normal Inspection. absent: Pedal Edema, Tenderness - Neurological Exam Neurological Exam: Alert, Awake, CN II-XII Intact, Oriented x3 Neuro motor strength exam: Left Upper Extremity: 0, Right Upper Extremity: 5, Left Lower Extremity: 0, Right Lower Extremity: 5 Additional comments: Patient identified painful stimuli in left great toe - Psychiatric Exam Psychiatric exam: Normal Affect, Normal Mood - Skin Skin Exam: Dry, Intact, Normal Color, Warm Assessment and Plan - Assessment and Plan (Free Text) Plan: Acute Right MCA with Hemorrhagic Conversion Imaging: - CT Head (08/11/18): large on MCA branch territory infarct involving right basal ganglia and right posterior frotnoparietal region extending to vertex with mass effect with overlying sulcal effacement, compression of the right lateral ventricle and shift of the septum pellucidum from right to left lateral ventricle suggesting mild early compressive effects at the level of left foramen of Garza. No definitive evidence of acute intracranial hemorrhage. - CT head/neck: no evidence of occlusion, dissection or significatn stenosis of the cervical caroitd or vertebral circulation. mild atheroscelroritc plauqe changes seen both cartoid siphons. no evidence of large aneurysm nor vascular malformation. - CT head (08/12/18): hemorrhage conversion of known large right MCA territory infarction with local regional mass effect, diffuse cerebral edema, and 11mm midline from right to left. interval development of right SOTO territory infarction involving the paramedian frontal lobe. - CT Head (08/13/18): Larger subacute MCA territory branch infarct with what appears represent hemorrhagic conversion changes in the right basal ganglia. Moderate to fairly significant mass-effect with compression of the right cerebral hemisphere including the right lateral ventricle which is shifted to the left side. Midline shift of the septum pellucidum estimated at approximately 10 mm. Mild dilatation of the left lateral ventricle likely due to compression at the level of the left foramen of Garza. Management: - Continue with medical management as patient's vitals are stable, more responsive, more awareness of his left side - Neurosurgery to continue to follow if he worsens clinically - Serial Head CTs - Continue with NS 3% @ 30ml/hrs for a goal serum sodium of 145-150 and serum osm of less than 320. 3% can be held when beyond parameters. - Precautions to avoid increased ICP such as keeping his head elevated, avoiding fever, hypertension, hyperglycemia and constipation. Case discussed with Janette Will DO, PGY2 <Vick Marvin - Last Filed: 08/14/18 17:08> Objective - Vital Signs/Intake and Output Vital Signs (last 24 hours): Temp Pulse Resp BP Pulse Ox 98.5 F 77 17 112/70 95 08/14/18 04:00 08/14/18 16:06 08/14/18 16:06 08/14/18 16:06 08/14/18 16:06 Intake and Output: 08/14/18 08/14/18 06:59 18:59 Intake Total 910 70 Output Total 1200 Balance -290 70 - Medications Medications: Current Medications Acetaminophen (Tylenol 650mg/20.3ml Solution Ud) 650 mg PO Q6 PRN PRN Reason: Temperature Last Admin: 08/12/18 15:26 Dose: 650 mg Pantoprazole Sodium (Protonix Inj) 40 mg IVP DAILY [facility] Last Admin: 08/14/18 09:42 Dose: 40 mg Rosuvastatin Calcium (Crestor) 20 mg NG HS [facility] Last Admin: 08/13/18 21:24 Dose: 20 mg Senna/Docusate Sodium (Senokot S 50 Mg-8.6 Mg) 1 tab PO BID [facility] Last Admin: 08/14/18 09:42 Dose: 1 tab - Labs Labs: 08/14/18 06:44 08/14/18 06:44 PT 12.3 SECONDS (9.7-12.2) H 08/10/18 18:13 INR 1.1 08/10/18 18:13 APTT 30 SECONDS (21-34) 08/10/18 18:13 Assessment and Plan (1) Stroke Status: Acute Attending/Attestation - Attestation I have personally seen and examined this patient.: Yes I have fully participated in the care of the patient.: Yes I have reviewed all pertinent clinical information, including history, physical exam and plan: Yes Notes (Text): 08/14/18 17:07 I agree with the assessment and plan. Will continue observation. Repeat CT head tomorrow and stop hypertonics. PT/OT efforts must intensify.
--- NOTE | 2018-08-14 13:21 | CP.CCUPN ---
<Zoe Bustamante - Last Filed: 08/14/18 13:33> CCU Subjective - Physician Review Events Since Last Encounter (Free Text): 08/14/18 13:21 No acute events overnight Subjective (Free Text): 08/14/18 13:21 PGY1 Critical Care Progress Note for Dr. Weir Patient was seen and evaluated at bedside this morning. No acute issues. Patient is non-verbal, thus ROS could not be obtained. Critical Care Time Spent (in minutes): 35 CCU Objective - Vital Signs / Intake & Output Intake and Output (Last 8hrs): Intake & Output 08/13/18 08/14/18 08/14/18 22:59 06:59 14:59 Intake Total 480 610 70 Output Total 400 1200 Balance 80 -590 70 Weight 224 lb Intake: Intake, IV Amount 300 240 30 Right Proximal Port 300 240 30 Internal Jugular Tube Feeding 80 270 40 Other 100 100 Output: Urine 400 1200 Urine, Voided 400 1200 Other: # Voids Urine, Voided 1 # Bowel Movements 0 - Physical Exam Other physical findings (Free Text): - Physical Exam Other physical findings (Free Text): - Constitutional Appears: No Acute Distress - Head Exam Head Exam: NORMAL INSPECTION, NORMOCEPHALIC - Eye Exam Eye Exam: PERRL. absent: Nystagmus, Scleral icterus - ENT Exam ENT Exam: Mucous Membranes Dry Additional comments: Left-sided facial droop Left-sided gaze NGT in place, right jugular TLC - Respiratory Exam Respiratory Exam: Clear to Ausculation Bilateral - Cardiovascular Exam Cardiovascular Exam: +S1, +S2 - GI/Abdominal Exam GI & Abdominal Exam: Soft, Normal Bowel Sounds. absent: Distended, Tenderness - Rectal Exam Rectal Exam: Deferred - Extremities Exam Extremities Exam: Normal Inspection. absent: Pedal Edema, Tenderness - Neurological Exam Neurological Exam: Alert, Awake, Oriented x3 Neuro motor strength exam: Left Upper Extremity: 0/5, Right Upper Extremity: 5/ 5, Right Lower Extremity: 0/5 Left-sided facial droop Left-sided gaze - Skin Skin Exam: Dry, Intact, Normal Color, Warm - Medications Active Medications: Active Medications Generic Name Dose Route Start Last Admin Trade Name Freq PRN Reason Stop Dose Admin Acetaminophen 650 mg 08/12/18 09:41 08/12/18 15:26 Tylenol 650mg/20.3ml Solution Ud PO 650 mg Q6 PRN Administration Temperature Pantoprazole Sodium 40 mg 08/12/18 10:00 08/14/18 09:42 Protonix Inj IVP 40 mg DAILY MARCO ANTONIO Administration Rosuvastatin Calcium 20 mg 08/11/18 22:00 08/13/18 21:24 Crestor NG 20 mg HS MARCO ANTONIO Administration Senna/Docusate Sodium 1 tab 08/13/18 12:00 08/14/18 09:42 Senokot S 50 Mg-8.6 Mg PO 1 tab BID MARCO ANTONIO Administration - Patient Studies Lab Studies: Microbiology Studies 08/12/18 11:50 Blood Culture - Preliminary Blood NO GROWTH AFTER 48 HOURS 08/12/18 11:50 Blood Culture - Preliminary Blood NO GROWTH AFTER 48 HOURS 08/12/18 11:50 Urine Culture - Final Urine,Catheterized Enterococcus Faecalis Lab Studies 08/14/18 08/14/18 08/14/18 Range/Units 11:29 06:44 06:44 WBC (4.8-10.8) K/uL RBC (4.40-5.90) Mil/uL Hgb (12.0-18.0) g/dL Hct (35.0-51.0) % MCV (80.0-94.0) fL MCH (27.0-31.0) pg MCHC (33.0-37.0) g/dL RDW (11.5-14.5) % Plt Count (130-400) K/uL MPV (7.2-11.7) fL Neut % (Auto) (50.0-75.0) % Lymph % (Auto) (20.0-40.0) % [place] % (Auto) (0.0-10.0) % Eos % (Auto) (0.0-4.0) % Baso % (Auto) (0.0-2.0) % Neut # (Auto) (1.8-7.0) K/uL Lymph # (Auto) (1.0-4.3) K/uL [place] # (Auto) (0.0-0.8) K/uL Eos # (Auto) (0.0-0.7) K/uL Baso # (Auto) (0.0-0.2) K/uL Sodium 150 H (132-148) mmol/L Potassium 3.5 L (3.6-5.2) mmol/L Chloride 119 H (98-107) mmol/L Carbon Dioxide 27 (22-30) mmol/L Anion Gap 7 L (10-20) BUN 20 (9-20) mg/dL Creatinine 0.8 (0.8-1.5) mg/dL Est GFR ( Amer) > 60 Est GFR (Non-Af Amer) > 60 POC Glucose (mg/dL) 97 (65-110) mg/dL Random Glucose 119 H (75-110) mg/dL Serum Osmolality 323 H (272-300) mosm/kg Calcium 9.0 (8.6-10.4) mg/dl Phosphorus 2.8 (2.5-4.5) mg/dL Magnesium 2.8 H (1.6-2.3) mg/dL 08/14/18 08/14/18 08/14/18 Range/Units 06:44 05:16 00:12 WBC 10.5 (4.8-10.8) K/uL RBC 4.58 (4.40-5.90) Mil/uL Hgb 13.2 (12.0-18.0) g/dL Hct 40.4 (35.0-51.0) % MCV 88.2 (80.0-94.0) fL MCH 28.9 (27.0-31.0) pg MCHC 32.8 L (33.0-37.0) g/dL RDW 13.7 (11.5-14.5) % Plt Count 191 (130-400) K/uL MPV 9.5 (7.2-11.7) fL Neut % (Auto) 79.5 H (50.0-75.0) % Lymph % (Auto) 10.2 L (20.0-40.0) % [place] % (Auto) 9.5 (0.0-10.0) % Eos % (Auto) 0.3 (0.0-4.0) % Baso % (Auto) 0.5 (0.0-2.0) % Neut # (Auto) 8.3 H (1.8-7.0) K/uL Lymph # (Auto) 1.1 (1.0-4.3) K/uL [place] # (Auto) 1.0 H (0.0-0.8) K/uL Eos # (Auto) 0.0 (0.0-0.7) K/uL Baso # (Auto) 0.1 (0.0-0.2) K/uL Sodium (132-148) mmol/L Potassium (3.6-5.2) mmol/L Chloride (98-107) mmol/L Carbon Dioxide (22-30) mmol/L Anion Gap (10-20) BUN (9-20) mg/dL Creatinine (0.8-1.5) mg/dL Est GFR ( Amer) Est GFR (Non-Af Amer) POC Glucose (mg/dL) 97 (65-110) mg/dL Random Glucose (75-110) mg/dL Serum Osmolality 316 H (272-300) mosm/kg Calcium (8.6-10.4) mg/dl Phosphorus (2.5-4.5) mg/dL Magnesium (1.6-2.3) mg/dL 08/14/18 08/14/18 08/13/18 Range/Units 00:12 00:01 17:35 WBC (4.8-10.8) K/uL RBC (4.40-5.90) Mil/uL Hgb (12.0-18.0) g/dL Hct (35.0-51.0) % MCV (80.0-94.0) fL MCH (27.0-31.0) pg MCHC (33.0-37.0) g/dL RDW (11.5-14.5) % Plt Count (130-400) K/uL MPV (7.2-11.7) fL Neut % (Auto) (50.0-75.0) % Lymph % (Auto) (20.0-40.0) % [place] % (Auto) (0.0-10.0) % Eos % (Auto) (0.0-4.0) % Baso % (Auto) (0.0-2.0) % Neut # (Auto) (1.8-7.0) K/uL Lymph # (Auto) (1.0-4.3) K/uL [place] # (Auto) (0.0-0.8) K/uL Eos # (Auto) (0.0-0.7) K/uL Baso # (Auto) (0.0-0.2) K/uL Sodium 150 H (132-148) mmol/L Potassium 3.8 (3.6-5.2) mmol/L Chloride 119 H (98-107) mmol/L Carbon Dioxide 24 (22-30) mmol/L Anion Gap 10 (10-20) BUN 19 (9-20) mg/dL Creatinine 0.7 L (0.8-1.5) mg/dL Est GFR ( Amer) > 60 Est GFR (Non-Af Amer) > 60 POC Glucose (mg/dL) 98 89 (65-110) mg/dL Random Glucose 103 (75-110) mg/dL Serum Osmolality (272-300) mosm/kg Calcium 8.8 (8.6-10.4) mg/dl Phosphorus (2.5-4.5) mg/dL Magnesium (1.6-2.3) mg/dL 08/13/18 08/13/18 08/13/18 Range/Units 17:24 17:24 11:08 WBC (4.8-10.8) K/uL RBC (4.40-5.90) Mil/uL Hgb (12.0-18.0) g/dL Hct (35.0-51.0) % MCV (80.0-94.0) fL MCH (27.0-31.0) pg MCHC (33.0-37.0) g/dL RDW (11.5-14.5) % Plt Count (130-400) K/uL MPV (7.2-11.7) fL Neut % (Auto) (50.0-75.0) % Lymph % (Auto) (20.0-40.0) % [place] % (Auto) (0.0-10.0) % Eos % (Auto) (0.0-4.0) % Baso % (Auto) (0.0-2.0) % Neut # (Auto) (1.8-7.0) K/uL Lymph # (Auto) (1.0-4.3) K/uL [place] # (Auto) (0.0-0.8) K/uL Eos # (Auto) (0.0-0.7) K/uL Baso # (Auto) (0.0-0.2) K/uL Sodium 150 H (132-148) mmol/L Potassium 3.7 (3.6-5.2) mmol/L Chloride 115 H (98-107) mmol/L Carbon Dioxide 25 (22-30) mmol/L Anion Gap 13 (10-20) BUN 18 (9-20) mg/dL Creatinine 0.8 (0.8-1.5) mg/dL Est GFR ( Amer) > 60 Est GFR (Non-Af Amer) > 60 POC Glucose (mg/dL) 105 (65-110) mg/dL Random Glucose 104 (75-110) mg/dL Serum Osmolality 323 H (272-300) mosm/kg Calcium 8.9 (8.6-10.4) mg/dl Phosphorus (2.5-4.5) mg/dL Magnesium (1.6-2.3) mg/dL Laboratory Results - last 24 hr 08/13/18 08/13/18 08/13/18 11:08 17:24 17:24 WBC RBC Hgb Hct MCV MCH MCHC RDW Plt Count MPV Neut % (Auto) Lymph % (Auto) [place] % (Auto) Eos % (Auto) Baso % (Auto) Neut # (Auto) Lymph # (Auto) [place] # (Auto) Eos # (Auto) Baso # (Auto) Sodium 150 H Potassium 3.7 Chloride 115 H Carbon Dioxide 25 Anion Gap 13 BUN 18 Creatinine 0.8 Est GFR ( Amer) > 60 Est GFR (Non-Af Amer) > 60 POC Glucose (mg/dL) 105 Random Glucose 104 Serum Osmolality 323 H Calcium 8.9 Phosphorus Magnesium 08/13/18 08/14/18 08/14/18 17:35 00:01 00:12 WBC RBC Hgb Hct MCV MCH MCHC RDW Plt Count MPV Neut % (Auto) Lymph % (Auto) [place] % (Auto) Eos % (Auto) Baso % (Auto) Neut # (Auto) Lymph # (Auto) [place] # (Auto) Eos # (Auto) Baso # (Auto) Sodium 150 H Potassium 3.8 Chloride 119 H Carbon Dioxide 24 Anion Gap 10 BUN 19 Creatinine 0.7 L Est GFR ( Amer) > 60 Est GFR (Non-Af Amer) > 60 POC Glucose (mg/dL) 89 98 Random Glucose 103 Serum Osmolality Calcium 8.8 Phosphorus Magnesium 08/14/18 08/14/18 08/14/18 00:12 05:16 06:44 WBC 10.5 RBC 4.58 Hgb 13.2 Hct 40.4 MCV 88.2 MCH 28.9 MCHC 32.8 L RDW 13.7 Plt Count 191 MPV 9.5 Neut % (Auto) 79.5 H Lymph % (Auto) 10.2 L [place] % (Auto) 9.5 Eos % (Auto) 0.3 Baso % (Auto) 0.5 Neut # (Auto) 8.3 H Lymph # (Auto) 1.1 [place] # (Auto) 1.0 H Eos # (Auto) 0.0 Baso # (Auto) 0.1 Sodium Potassium Chloride Carbon Dioxide Anion Gap BUN Creatinine Est GFR ( Amer) Est GFR (Non-Af Amer) POC Glucose (mg/dL) 97 Random Glucose Serum Osmolality 316 H Calcium Phosphorus Magnesium 08/14/18 08/14/18 08/14/18 06:44 06:44 11:29 WBC RBC Hgb Hct MCV MCH MCHC RDW Plt Count MPV Neut % (Auto) Lymph % (Auto) [place] % (Auto) Eos % (Auto) Baso % (Auto) Neut # (Auto) Lymph # (Auto) [place] # (Auto) Eos # (Auto) Baso # (Auto) Sodium 150 H Potassium 3.5 L Chloride 119 H Carbon Dioxide 27 Anion Gap 7 L BUN 20 Creatinine 0.8 Est GFR ( Amer) > 60 Est GFR (Non-Af Amer) > 60 POC Glucose (mg/dL) 97 Random Glucose 119 H Serum Osmolality 323 H Calcium 9.0 Phosphorus 2.8 Magnesium 2.8 H Fingerstick Blood Sugar Results: 97 Review of Systems - Review of Systems Systems not reviewed;Unavailable: Acuity of Condition Assessment/Plan - Assessment and Plan (Free Text) Assessment: Mr. Aguayo is a 52-year-old man with no known past medical history, who presented to the ED in the morning with left side weakness. Non-contrast CT scan of the head was done in the ED and showed a large right cerebral infarct with 4 mm midline shift. He was given aspirin and transferred to the ICU after he became more lethargic. A repeat non-contrast CT scan of the head was done at around 12 PM today and showed worsening midline shift. Patient received hypertonic saline for 2 days. Currently patient is off fluids and is getting tube feeding via NG tube. Patient alert and able to follow commands. Neuro: - Acute right MCA infarct with 9.6mm midline shift and hemorrhagic conversion - Dr. Marvin consulted; recommendations appreciated - CT Head (08/14/18) * Pending official report - CT Head (08/13/18) * Larger subacute MCA territory branch infarct with what appears to represent hemorrhagic conversion changes in the right basal ganglia. Moderate to fairly significant mass-effect with compression of the right cerebral hemisphere including right lateral ventrical which is shifted to the left side. Midline shift of the septum pellucidum estimated at approximately 10mm. Mild dilatation of the left lateral ventricle likely due to compression at the level of the left foramen of Monro. - CT head (08/12/18) * Hemorrhage conversion of known large right MCA territory infarction with local regional mass effect, diffuse cerebral edema, and 11mm midline from right to left. interval development of right SOTO territory infarction involving the paramedian frontal lobe. - CT Head (08/11/18) * large on MCA branch territory infarct involving right basal ganglia and right posterior frotnoparietal region extending to vertex with mass effect with overlying sulcal effacement, compression of the right lateral ventricle and shift of the septum pellucidum from right to left lateral ventricle suggesting mild early compressive effects at the level of left foramen of Garza. No definitive evidence of acute intracranial hemorrhage. - CT head/neck * No evidence of occlusion, dissection or significant stenosis of the cervical carotid or vertebral circulation. mild atheroscelroritc plauqe changes seen both cartoid siphons. no evidence of large aneurysm nor vascular malformation. - NS 3% @ 60ml/hrs * Goal serum sodium of 145-150 and serum osm of less than 320 * Pf=522, Oss= 314 * Discontinued - Neurosurgery Dr. Hernandez consulted; recommendations appreciated * No craniotomy warranted at this time CV: - ECHO obtained, per official report * Limited study: negative study * No evidence inter-cavitary shunt - monitor worker Pulm: - Aspiration precautions - No acute issues GI: - Tube feeds jevity - NG tube - Ppx Renal: - No acute issues - Monitor CMP, Mg, Phos ID: - No acute issues - Monitor CBC with diff Patient seen and case discussed in detail with Dr. Destin Bustamante PGY1 <Dominik Weir - Last Filed: 08/14/18 18:08> CCU Objective - Vital Signs / Intake & Output Vital Signs (Last 4 hours): Vital Signs Pulse Resp BP Pulse Ox 08/14/18 16:06 77 17 112/70 95 08/14/18 16:00 79 16 96 08/14/18 15:00 93 H 19 144/98 H 97 Intake and Output (Last 8hrs): Intake & Output 08/14/18 08/14/18 08/14/18 06:59 14:59 22:59 Intake Total 610 70 Output Total 1200 Balance -590 70 Weight 224 lb Intake: Intake, IV Amount 240 30 Right Proximal Port 240 30 Internal Jugular Tube Feeding 270 40 Other 100 Output: Urine 1200 Urine, Voided 1200 Other: # Bowel Movements 0 - Medications Active Medications: Active Medications Generic Name Dose Route Start Last Admin Trade Name Freq PRN Reason Stop Dose Admin Acetaminophen 650 mg 08/12/18 09:41 08/12/18 15:26 Tylenol 650mg/20.3ml Solution Ud PO 650 mg Q6 PRN Administration Temperature Pantoprazole Sodium 40 mg 08/12/18 10:00 08/14/18 09:42 Protonix Inj IVP 40 mg DAILY MARCO ANTONIO Administration Rosuvastatin Calcium 20 mg 08/11/18 22:00 08/13/18 21:24 Crestor NG 20 mg HS MARCO ANTONIO Administration Senna/Docusate Sodium 1 tab 08/13/18 12:00 08/14/18 17:23 Senokot S 50 Mg-8.6 Mg PO 1 tab BID MARCO ANTONIO Administration - Patient Studies Lab Studies: Microbiology Studies 08/12/18 11:50 Blood Culture - Preliminary Blood NO GROWTH AFTER 48 HOURS 08/12/18 11:50 Blood Culture - Preliminary Blood NO GROWTH AFTER 48 HOURS 08/12/18 11:50 Urine Culture - Final Urine,Catheterized Enterococcus Faecalis Lab Studies 08/14/18 08/14/18 08/14/18 Range/Units 11:29 06:44 06:44 WBC (4.8-10.8) K/uL RBC (4.40-5.90) Mil/uL Hgb (12.0-18.0) g/dL Hct (35.0-51.0) % MCV (80.0-94.0) fL MCH (27.0-31.0) pg MCHC (33.0-37.0) g/dL RDW (11.5-14.5) % Plt Count (130-400) K/uL MPV (7.2-11.7) fL Neut % (Auto) (50.0-75.0) % Lymph % (Auto) (20.0-40.0) % [place] % (Auto) (0.0-10.0) % Eos % (Auto) (0.0-4.0) % Baso % (Auto) (0.0-2.0) % Neut # (Auto) (1.8-7.0) K/uL Lymph # (Auto) (1.0-4.3) K/uL [place] # (Auto) (0.0-0.8) K/uL Eos # (Auto) (0.0-0.7) K/uL Baso # (Auto) (0.0-0.2) K/uL Sodium 150 H (132-148) mmol/L Potassium 3.5 L (3.6-5.2) mmol/L Chloride 119 H (98-107) mmol/L Carbon Dioxide 27 (22-30) mmol/L Anion Gap 7 L (10-20) BUN 20 (9-20) mg/dL Creatinine 0.8 (0.8-1.5) mg/dL Est GFR ( Amer) > 60 Est GFR (Non-Af Amer) > 60 POC Glucose (mg/dL) 97 (65-110) mg/dL Random Glucose 119 H (75-110) mg/dL Serum Osmolality 323 H (272-300) mosm/kg Calcium 9.0 (8.6-10.4) mg/dl Phosphorus 2.8 (2.5-4.5) mg/dL Magnesium 2.8 H (1.6-2.3) mg/dL 08/14/18 08/14/18 08/14/18 Range/Units 06:44 05:16 00:12 WBC 10.5 (4.8-10.8) K/uL RBC 4.58 (4.40-5.90) Mil/uL Hgb 13.2 (12.0-18.0) g/dL Hct 40.4 (35.0-51.0) % MCV 88.2 (80.0-94.0) fL MCH 28.9 (27.0-31.0) pg MCHC 32.8 L (33.0-37.0) g/dL RDW 13.7 (11.5-14.5) % Plt Count 191 (130-400) K/uL MPV 9.5 (7.2-11.7) fL Neut % (Auto) 79.5 H (50.0-75.0) % Lymph % (Auto) 10.2 L (20.0-40.0) % [place] % (Auto) 9.5 (0.0-10.0) % Eos % (Auto) 0.3 (0.0-4.0) % Baso % (Auto) 0.5 (0.0-2.0) % Neut # (Auto) 8.3 H (1.8-7.0) K/uL Lymph # (Auto) 1.1 (1.0-4.3) K/uL [place] # (Auto) 1.0 H (0.0-0.8) K/uL Eos # (Auto) 0.0 (0.0-0.7) K/uL Baso # (Auto) 0.1 (0.0-0.2) K/uL Sodium (132-148) mmol/L Potassium (3.6-5.2) mmol/L Chloride (98-107) mmol/L Carbon Dioxide (22-30) mmol/L Anion Gap (10-20) BUN (9-20) mg/dL Creatinine (0.8-1.5) mg/dL Est GFR ( Amer) Est GFR (Non-Af Amer) POC Glucose (mg/dL) 97 (65-110) mg/dL Random Glucose (75-110) mg/dL Serum Osmolality 316 H (272-300) mosm/kg Calcium (8.6-10.4) mg/dl Phosphorus (2.5-4.5) mg/dL Magnesium (1.6-2.3) mg/dL 08/14/18 08/14/18 Range/Units 00:12 00:01 WBC (4.8-10.8) K/uL RBC (4.40-5.90) Mil/uL Hgb (12.0-18.0) g/dL Hct (35.0-51.0) % MCV (80.0-94.0) fL MCH (27.0-31.0) pg MCHC (33.0-37.0) g/dL RDW (11.5-14.5) % Plt Count (130-400) K/uL MPV (7.2-11.7) fL Neut % (Auto) (50.0-75.0) % Lymph % (Auto) (20.0-40.0) % [place] % (Auto) (0.0-10.0) % Eos % (Auto) (0.0-4.0) % Baso % (Auto) (0.0-2.0) % Neut # (Auto) (1.8-7.0) K/uL Lymph # (Auto) (1.0-4.3) K/uL [place] # (Auto) (0.0-0.8) K/uL Eos # (Auto) (0.0-0.7) K/uL Baso # (Auto) (0.0-0.2) K/uL Sodium 150 H (132-148) mmol/L Potassium 3.8 (3.6-5.2) mmol/L Chloride 119 H (98-107) mmol/L Carbon Dioxide 24 (22-30) mmol/L Anion Gap 10 (10-20) BUN 19 (9-20) mg/dL Creatinine 0.7 L (0.8-1.5) mg/dL Est GFR ( Amer) > 60 Est GFR (Non-Af Amer) > 60 POC Glucose (mg/dL) 98 (65-110) mg/dL Random Glucose 103 (75-110) mg/dL Serum Osmolality (272-300) mosm/kg Calcium 8.8 (8.6-10.4) mg/dl Phosphorus (2.5-4.5) mg/dL Magnesium (1.6-2.3) mg/dL Laboratory Results - last 24 hr 08/14/18 08/14/18 08/14/18 00:01 00:12 00:12 WBC RBC Hgb Hct MCV MCH MCHC RDW Plt Count MPV Neut % (Auto) Lymph % (Auto) [place] % (Auto) Eos % (Auto) Baso % (Auto) Neut # (Auto) Lymph # (Auto) [place] # (Auto) Eos # (Auto) Baso # (Auto) Sodium 150 H Potassium 3.8 Chloride 119 H Carbon Dioxide 24 Anion Gap 10 BUN 19 Creatinine 0.7 L Est GFR ( Amer) > 60 Est GFR (Non-Af Amer) > 60 POC Glucose (mg/dL) 98 Random Glucose 103 Serum Osmolality 316 H Calcium 8.8 Phosphorus Magnesium 08/14/18 08/14/18 08/14/18 05:16 06:44 06:44 WBC 10.5 RBC 4.58 Hgb 13.2 Hct 40.4 MCV 88.2 MCH 28.9 MCHC 32.8 L RDW 13.7 Plt Count 191 MPV 9.5 Neut % (Auto) 79.5 H Lymph % (Auto) 10.2 L [place] % (Auto) 9.5 Eos % (Auto) 0.3 Baso % (Auto) 0.5 Neut # (Auto) 8.3 H Lymph # (Auto) 1.1 [place] # (Auto) 1.0 H Eos # (Auto) 0.0 Baso # (Auto) 0.1 Sodium 150 H Potassium 3.5 L Chloride 119 H Carbon Dioxide 27 Anion Gap 7 L BUN 20 Creatinine 0.8 Est GFR ( Amer) > 60 Est GFR (Non-Af Amer) > 60 POC Glucose (mg/dL) 97 Random Glucose 119 H Serum Osmolality Calcium 9.0 Phosphorus 2.8 Magnesium 2.8 H 08/14/18 08/14/18 06:44 11:29 WBC RBC Hgb Hct MCV MCH MCHC RDW Plt Count MPV Neut % (Auto) Lymph % (Auto) [place] % (Auto) Eos % (Auto) Baso % (Auto) Neut # (Auto) Lymph # (Auto) [place] # (Auto) Eos # (Auto) Baso # (Auto) Sodium Potassium Chloride Carbon Dioxide Anion Gap BUN Creatinine Est GFR ( Amer) Est GFR (Non-Af Amer) POC Glucose (mg/dL) 97 Random Glucose Serum Osmolality 323 H Calcium Phosphorus Magnesium Attending/Attestation - Attestation I have personally seen and examined this patient.: Yes I have fully participated in the care of the patient.: Yes I have reviewed all pertinent clinical information: Yes Notes (Text): 08/14/18 18:07 patient seen and examined in the intensive care unit. Neurologically improving Patient is off 3% sodium chloride follow-up CAT scan Continue present treatment
--- NOTE | 2018-08-14 13:25 | CT ---
Date of service: 08/14/2018 PROCEDURE: CT HEAD WITHOUT CONTRAST. HISTORY: Stroke with hemorrhagic conversion COMPARISON: None available. TECHNIQUE: Axial computed tomography images were obtained through the head/brain without intravenous contrast. Radiation dose: Total exam DLP = 1273.87 mGy-cm. This CT exam was performed using one or more of the following dose reduction techniques: Automated exposure control, adjustment of the mA and/or kV according to patient size, and/or use of iterative reconstruction technique. FINDINGS: HEMORRHAGE: Redemonstrated is a relatively large right MCA territory of infarct which involves the right temporal lobe, right basal ganglia and right frontoparietal lobes extending to the vertex. Areas of hemorrhagic conversion or again seen in the right caudate head and in the right globus pallidus and putamen region. Note that the possibility of a small amount of cortical surface hemorrhage not completely excluded.. These findings exert considerable surrounding mass effect with overlying sulcal effacement including effacement of the sylvian fissure and frontal parietal gyri as well as compression of the right lateral ventricle and shift of the septum pellucidum from right to left. Septum pellucidum is approximately 12 mm to the left of midline. Slight dilatation of the left lateral ventricle likely due to mild compression of the left foramen of Monro.. BRAIN: As above. VENTRICLES: As above. CALVARIUM: Calvarium intact PARANASAL SINUSES: Unremarkable as visualized. No significant inflammatory changes. MASTOID AIR CELLS: Unremarkable as visualized. No inflammatory changes. OTHER FINDINGS: None. IMPRESSION: Redemonstrated is relatively large right MCA territory infarct with hemorrhagic conversion changes in the right basal ganglia as described. Moderate to fairly significant persistent moderate to severely significant mass effect with overlying sulcal effacement and compression of the right lateral ventricle is also shifted across midline. Septum pellucidum lies approximately 12 mm to the left midline. Persistent mild dilatation left lateral ventricle likely due to compression of the left foramen of Monro.
--- NOTE | 2018-08-14 19:06 | CARD ---
APPROVED REPORT Date of service: 08/12/2018 EXAM: LIMITED Two-dimensional and M-mode echocardiogram with Doppler and color Doppler. Other Information Quality : LimitedRhythm : INDICATION CVA/TIA Stroke M-Mode DIMENSIONS Left Atrium (MM)3.95 (2.5-4.0cm)IVSd1.09 (0.7-1.1cm) Aortic Root2.73 (2.2-3.7cm)LVDd4.59 (4.0-5.6cm) Aortic Cusp Exc.1.82 (1.5-2.0cm)PWd1.06 (0.7-1.1cm) FS (%) 46 %LVDs2.46 (2.0-3.8cm) LVEF (%)78 (>50%) Aortic Valve AoV Peak Jldfzlxc508.6cm/Sandee Peak GR.5mmHg Mitral Valve MV E Jaofdcwj61.7cm/sMV A Uwzmlbaj67.2cm/sE/A ratio1.1 TDI E/Lateral E'0.0E/Medial E'0.0 Tricuspid Valve TR Peak Gr.[id number] LEFT VENTRICLE The left ventricle is normal size. There is normal left ventricular wall thickness. The left ventricular function is normal. The left ventricular ejection fraction is within the normal range. There is normal LV segmental wall motion. The left ventricular diastolic function is normal. RIGHT VENTRICLE The right ventricle is normal size. ATRIA The left atrium size is normal. The right atrium size is normal. AORTIC VALVE The aortic valve is normal in structure. MITRAL VALVE The mitral valve is normal in structure. TRICUSPID VALVE There is trace to mild tricuspid regurgitation. <Conclusion> Normal LV systolic function. Normal chamber size. Trace to mild TR.
[2018-08-15 05:46] LABS: BASO % 0.3 % (0.0-2.0); EOS # 0.1 K/uL (0.0-0.7); EOS % 0.9 % (0.0-4.0); HEMOGLOBIN 13.7 g/dL (12.0-18.0); LYMPH # 1.4 K/uL (1.0-4.3); LYMPH % 12.8 % (20.0-40.0); MEAN CELL VOLUME 87.7 fL (80.0-94.0); MEAN CORPUSCULAR HEMOGLOBIN 29.1 pg (27.0-31.0); MEAN CORPUSCULAR HGB CONC 33.2 g/dL (33.0-37.0); MEAN PLATELET VOLUME 8.8 fL (7.2-11.7); MONO # 1.3 K/uL (0.0-0.8); MONO % 11.8 % (0.0-10.0); NEUT # 8.1 K/uL (1.8-7.0); NEUT % 74.2 % (50.0-75.0); NRBC % 0.1 % (0.0-2.0); RBC 4.7 Mil/uL (4.40-5.90); RED CELL DISTRIBUTION WIDTH 14.2 % (11.5-14.5); WHITE BLOOD COUNT 10.9 K/uL (4.8-10.8)
[2018-08-15 06:14] LABS: ALB/GLOB RATIO 1.2 (1.0-2.1); ALT/SGPT 37 U/L (21-72); AST/SGOT 43 U/L (17-59); BLOOD UREA NITROGEN 21 mg/dL (9-20); CALCIUM 9.2 mg/dl (8.6-10.4); GFR NON-AFRICAN AMERICAN > 60
--- NOTE | 2018-08-15 09:42 | CP.PCM.PN ---
Subjective - Date & Time of Evaluation Date of Evaluation: 08/15/18 Time of Evaluation: 09:15 - Subjective Subjective: Patient was seen and examined by me. Patient went for repeat CT of head this morning. Later for MRI He was awake, verbal, trying to follow simple commands in Frisian with the right side of body. There is no left upper or lower muscle strength. As mentioned previously the patient had a large CVA affecting the MCA area of basal ganglia as well as frontoparietal area and then had a hemmoragic conversion. He is now off of the 3% hypertonic saline. Objective - Vital Signs/Intake and Output Vital Signs (last 24 hours): Temp Pulse Resp BP Pulse Ox 98 F 100 H 20 144/80 97 08/15/18 08:00 08/15/18 08:00 08/15/18 08:00 08/15/18 08:00 08/15/18 08:00 Intake and Output: 08/15/18 08/15/18 06:59 18:59 Intake Total 830 220 Output Total 500 Balance 330 220 - Medications Medications: Current Medications Acetaminophen (Tylenol 650mg/20.3ml Solution Ud) 650 mg PO Q6 PRN PRN Reason: Temperature Last Admin: 08/12/18 15:26 Dose: 650 mg Pantoprazole Sodium (Protonix Inj) 40 mg IVP DAILY [facility] Last Admin: 08/14/18 09:42 Dose: 40 mg Rosuvastatin Calcium (Crestor) 20 mg NG HS [facility] Last Admin: 08/14/18 22:06 Dose: 20 mg Senna/Docusate Sodium (Senokot S 50 Mg-8.6 Mg) 1 tab PO BID [facility] Last Admin: 08/14/18 17:23 Dose: 1 tab - Labs Labs: 08/15/18 05:38 08/15/18 05:38 PT 12.3 SECONDS (9.7-12.2) H 08/10/18 18:13 INR 1.1 08/10/18 18:13 APTT 30 SECONDS (21-34) 08/10/18 18:13 - Respiratory Exam Respiratory Exam: Clear to Ausculation Bilateral, NORMAL BREATHING PATTERN - Cardiovascular Exam Cardiovascular Exam: REGULAR RHYTHM - GI/Abdominal Exam GI & Abdominal Exam: Soft. absent: Distended, Firm, Guarding, Rigid, Tenderness - Neurological Exam Neurological Exam: Alert, Altered, Awake Additional comments: He is trying to answer questions and follow commands. 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 Remains off of the hypertonic saline. 08/14: Today the 3% saline was stopped this morning. 08/13: At this time the patient has been on 3% saline. Per staff he seems to be more awake then when they first met him yesterday. There will be additional CT scans later today. Neurosurgery is following the mahesh e. Pending echo at this time. CT Head (08/11/18): large on MCA branch territory infarct involving right basal ganglia and right posterior frotnoparietal region extending to vertex with mass effect with overlying sulcal effacement, compression of the right lateral ventricle and shift of the septum pellucidum from right to left lateral ventricle suggesting mild early compressive effects at the level of left foramen of Garza. No definitive evidence of acute intracranial hemorrhage. CT head and neck: no evidence of occlusion, dissection or significatn stenosis of the cervical caroitd or vertebral circulation. mild atheroscelroritc plauqe changes seen both cartoid siphons. no evidence of large aneurysm nor vascular malformation. CT head (08/12/18); hemorrhage conversion of known large right MCA territoty infarction with local regional mass effect, diffuse cerenral edema, and 11mm midline from right to left. interval development of right SOTO territory infarction involving the paramedian frontal lobe, Neurosurgery on board-->on route to eval the patient per discussion with nurse based on latest CT neurology on board-->not candidate for tpa/nor thrombectomy per neuro notes Seizure precautions aspiration precautions neurochecks q1 Status: Acute (2) ETOH abuse Assessment & Plan: monitor for withdrawal Status: Chronic (3) Impaired glucose tolerance Assessment & Plan: will need monitoring of his sugars repeat a1c in one year to prevent overt diabetes Status: Acute (4) Lipid disorder Assessment & Plan: elevated cholestrol: 271 LDL: 184 HDL: 59 T crestor 20mg NG HS (5) Leukocytosis Assessment & Plan: likely inflammatory reaction second to stroke ordered blood, urine studies (6) Prophylactic measure Assessment & Plan: chemical anticoagulation contraindicated in light of hemorrhagic conversion of MCA stroke SCDs b/l Prognosis poor Correct phone number of son Yayo: Yayo at [phone]
--- NOTE | 2018-08-15 09:57 | CT ---
Date of service: 08/15/2018 PROCEDURE: CT HEAD WITHOUT CONTRAST. HISTORY: monitor progression of right MCA COMPARISON: None available. TECHNIQUE: Axial computed tomography images were obtained through the head/brain without intravenous contrast. Radiation dose: Total exam DLP = 1150.29 mGy-cm. This CT exam was performed using one or more of the following dose reduction techniques: Automated exposure control, adjustment of the mA and/or kV according to patient size, and/or use of iterative reconstruction technique. FINDINGS: HEMORRHAGE: Redemonstrated is tubal hemorrhagic changes within the distribution of a relatively large right MCA territory infarct. BRAIN: Relatively large right MCA territory infarct again seen. Mild mass effect with overlying sulcal effacement well as compression of the right lateral ventricle and shift of the septum pellucidum from right to left estimated at approximately 11 mm. VENTRICLES: Very mild dilatation of the left lateral ventricle felt to be due to minimal compressive effects at the level of the left foramen of Monro. CALVARIUM: Unremarkable. PARANASAL SINUSES: Unremarkable as visualized. No significant inflammatory changes. MASTOID AIR CELLS: Unremarkable as visualized. No inflammatory changes. OTHER FINDINGS: None. IMPRESSION: Relatively large right MCA territory infarct again with questionable hemorrhagic conversion changes.. Mild mass effect with overlying sulcal effacement and compression of the right lateral ventricle lower shift of the septum pellucidum from left to right by approximately 11 mm. Questionable hemorrhagic conversion within the
[2018-08-15] MEDS: Docusate-Senna 50 mg-8.6 mg Tab PO SCH ×2 (10:10→21:04)
--- NOTE | 2018-08-15 15:02 | MRI ---
Date of service: 08/15/2018. PROCEDURE: MRI BRAIN WITHOUT CONTRAST. HISTORY: Right MCA with hemorrhagic conversion. COMPARISON: None available. TECHNIQUE: Multiplanar, multisequence MR images of the brain were obtained without intravenous contrast enhancement. FINDINGS: Redemonstrated is a relatively large right MCA territory early subacute infarct which involves the right frontal, basal ganglia and frontoparietal regions. There are at least 3 areas of elliptical shaped hemorrhage; 1 involving the right caudate head, the other involving the globus pallidus/putamen and the 3rd located in the right posterior frontoparietal watershed zone.. These hemorrhages exhibit central areas of dark T2 with isointense T1 signal and peripheral bright T1 signal consistent with central intracellular deoxyhemoglobin and early conversion of the peripheral rim to methemoglobin VENTRICLES: There is compression of the right lateral ventricle with shift of the right lateral ventricle across midline. Slight dilatation of the left lateral ventricle likely due to minor compressive effects at the level of the left foramen of Monro. CRANIUM: Calvarium intact ORBITS: Visualized major vascular flow voids at skull base patent. PARANASAL SINUSES/MASTOIDS: Minimal to mild mucosal thickening within all the paranasal sinuses. VASCULAR SYSTEM: Skull base flow voids intact. OTHER FINDINGS: None. IMPRESSION: There is a relatively large subacute right MCA territory infarct with areas of hemorrhage in the basal ganglia and right posterior frontoparietal watershed zone as described. Persistent mass effect with compression of the right lateral ventricle and [id number] midline shift with septum pellucidum located approximately 11 mm to left of midline. Mild on dilatation left lateral ventricle due to mild compressive effects at the level of the left foramen of Monro.
--- NOTE | 2018-08-15 16:34 | CP.CCUPN ---
<Zoe Bustamante - Last Filed: 08/15/18 16:10> CCU Subjective - Physician Review Events Since Last Encounter (Free Text): 08/15/18 16:11 No acute events overnight Subjective (Free Text): 08/15/18 16:10 PGY1 Critical Care Progress Note for Dr. Love Patient was seen and evaluated at bedside this morning. No acute issues. Patient is non-verbal, thus ROS could not be obtained. Critical Care Time Spent (in minutes): 35 CCU Objective - Vital Signs / Intake & Output Vital Signs (Last 4 hours): Vital Signs Temp Pulse Resp BP Pulse Ox 08/15/18 15:02 145/91 H 08/15/18 15:01 87 20 08/15/18 15:00 98.4 F 95 H 22 142/95 H 95 08/15/18 14:01 93 H 22 149/100 H 08/15/18 14:00 98 H 22 08/15/18 13:50 100 H 11 L Intake and Output (Last 8hrs): Intake & Output 08/15/18 08/15/18 08/15/18 06:59 14:59 22:59 Intake Total 540 560 60 Output Total 500 Balance 40 560 60 Weight 225 lb 3.2 oz Intake: Tube Feeding 480 420 60 Other 60 140 Output: Urine 500 Urine, Voided 500 Other: # Bowel Movements 0 - Physical Exam Other physical findings (Free Text): - Constitutional Appears: No Acute Distress - Head Exam Head Exam: NORMAL INSPECTION, NORMOCEPHALIC - Eye Exam Eye Exam: PERRL. absent: Nystagmus, Scleral icterus - ENT Exam ENT Exam: Mucous Membranes Dry Additional comments: Left-sided facial droop Left-sided gaze NGT in place - Respiratory Exam Respiratory Exam: Clear to Ausculation Bilateral - Cardiovascular Exam Cardiovascular Exam: +S1, +S2 - GI/Abdominal Exam GI & Abdominal Exam: Soft, Normal Bowel Sounds. absent: Distended, Tenderness - Rectal Exam Rectal Exam: Deferred - Extremities Exam Extremities Exam: Normal Inspection. absent: Pedal Edema, Tenderness - Neurological Exam Neurological Exam: Alert, Awake, Oriented x3 Neuro motor strength exam: Left Upper Extremity: 0/5, Right Upper Extremity: 5/5, Right Lower Extremity: 0/5 Left-sided facial droop Left-sided gaze - Skin Skin Exam: Dry, Intact, Normal Color, Warm - Medications Active Medications: Active Medications Generic Name Dose Route Start Last Admin Trade Name Gigiq PRN Reason Stop Dose Admin Acetaminophen 650 mg 08/12/18 09:41 08/12/18 15:26 Tylenol 650mg/20.3ml Solution Ud PO 650 mg Q6 PRN Administration Temperature Pantoprazole Sodium 40 mg 08/16/18 10:00 Protonix Ec Tab PO DAILY [facility] Rosuvastatin Calcium 20 mg 08/11/18 22:00 08/14/18 22:06 Crestor NG 20 mg HS [facility] Administration Senna/Docusate Sodium 1 tab 08/13/18 12:00 08/15/18 10:10 Senokot S 50 Mg-8.6 Mg PO 1 tab BID [facility] Administration - Patient Studies Lab Studies: Microbiology Studies 08/12/18 11:50 Blood Culture - Preliminary Blood NO GROWTH AFTER 3 DAYS 08/12/18 11:50 Blood Culture - Preliminary Blood NO GROWTH AFTER 3 DAYS Lab Studies 08/15/18 08/15/18 08/15/18 Range/Units 11:29 06:18 05:38 WBC (4.8-10.8) K/uL RBC (4.40-5.90) Mil/uL Hgb (12.0-18.0) g/dL Hct (35.0-51.0) % MCV (80.0-94.0) fL MCH (27.0-31.0) pg MCHC (33.0-37.0) g/dL RDW (11.5-14.5) % Plt Count (130-400) K/uL MPV (7.2-11.7) fL Neut % (Auto) (50.0-75.0) % Lymph % (Auto) (20.0-40.0) % [place] % (Auto) (0.0-10.0) % Eos % (Auto) (0.0-4.0) % Baso % (Auto) (0.0-2.0) % Neut # (Auto) (1.8-7.0) K/uL Lymph # (Auto) (1.0-4.3) K/uL [place] # (Auto) (0.0-0.8) K/uL Eos # (Auto) (0.0-0.7) K/uL Baso # (Auto) (0.0-0.2) K/uL Sodium 150 H (132-148) mmol/L Potassium 3.6 (3.6-5.2) mmol/L Chloride 114 H (98-107) mmol/L Carbon Dioxide 28 (22-30) mmol/L Anion Gap 12 (10-20) BUN 21 H (9-20) mg/dL Creatinine 0.8 (0.8-1.5) mg/dL Est GFR ( Amer) > 60 Est GFR (Non-Af Amer) > 60 POC Glucose (mg/dL) 95 128 H (65-110) mg/dL Random Glucose 108 (75-110) mg/dL Calcium 9.2 (8.6-10.4) mg/dl Phosphorus 3.8 (2.5-4.5) mg/dL Magnesium 2.5 H (1.6-2.3) mg/dL Total Bilirubin 0.5 (0.2-1.3) mg/dL AST 43 (17-59) U/L ALT 37 (21-72) U/L Alkaline Phosphatase 61 (38-126) U/L Total Protein 7.5 (6.3-8.3) g/dL Albumin 4.0 (3.5-5.0) g/dL Globulin 3.5 (2.2-3.9) gm/dL Albumin/Globulin Ratio 1.2 (1.0-2.1) 08/15/18 08/14/18 08/14/18 Range/Units 05:38 23:43 17:19 WBC 10.9 H (4.8-10.8) K/uL RBC 4.70 (4.40-5.90) Mil/uL Hgb 13.7 (12.0-18.0) g/dL Hct 41.2 (35.0-51.0) % MCV 87.7 (80.0-94.0) fL MCH 29.1 (27.0-31.0) pg MCHC 33.2 (33.0-37.0) g/dL RDW 14.2 (11.5-14.5) % Plt Count 159 (130-400) K/uL MPV 8.8 (7.2-11.7) fL Neut % (Auto) 74.2 (50.0-75.0) % Lymph % (Auto) 12.8 L (20.0-40.0) % [place] % (Auto) 11.8 H (0.0-10.0) % Eos % (Auto) 0.9 (0.0-4.0) % Baso % (Auto) 0.3 (0.0-2.0) % Neut # (Auto) 8.1 H (1.8-7.0) K/uL Lymph # (Auto) 1.4 (1.0-4.3) K/uL [place] # (Auto) 1.3 H (0.0-0.8) K/uL Eos # (Auto) 0.1 (0.0-0.7) K/uL Baso # (Auto) 0.0 (0.0-0.2) K/uL Sodium (132-148) mmol/L Potassium (3.6-5.2) mmol/L Chloride (98-107) mmol/L Carbon Dioxide (22-30) mmol/L Anion Gap (10-20) BUN (9-20) mg/dL Creatinine (0.8-1.5) mg/dL Est GFR ( Amer) Est GFR (Non-Af Amer) POC Glucose (mg/dL) 121 H 87 (65-110) mg/dL Random Glucose (75-110) mg/dL Calcium (8.6-10.4) mg/dl Phosphorus (2.5-4.5) mg/dL Magnesium (1.6-2.3) mg/dL Total Bilirubin (0.2-1.3) mg/dL AST (17-59) U/L ALT (21-72) U/L Alkaline Phosphatase (38-126) U/L Total Protein (6.3-8.3) g/dL Albumin (3.5-5.0) g/dL Globulin (2.2-3.9) gm/dL Albumin/Globulin Ratio (1.0-2.1) Laboratory Results - last 24 hr 08/14/18 08/14/18 08/15/18 17:19 23:43 05:38 WBC 10.9 H RBC 4.70 Hgb 13.7 Hct 41.2 MCV 87.7 MCH 29.1 MCHC 33.2 RDW 14.2 Plt Count 159 MPV 8.8 Neut % (Auto) 74.2 Lymph % (Auto) 12.8 L [place] % (Auto) 11.8 H Eos % (Auto) 0.9 Baso % (Auto) 0.3 Neut # (Auto) 8.1 H Lymph # (Auto) 1.4 [place] # (Auto) 1.3 H Eos # (Auto) 0.1 Baso # (Auto) 0.0 Sodium Potassium Chloride Carbon Dioxide Anion Gap BUN Creatinine Est GFR ( Amer) Est GFR (Non-Af Amer) POC Glucose (mg/dL) 87 121 H Random Glucose Calcium Phosphorus Magnesium Total Bilirubin AST ALT Alkaline Phosphatase Total Protein Albumin Globulin Albumin/Globulin Ratio 08/15/18 08/15/18 08/15/18 05:38 06:18 11:29 WBC RBC Hgb Hct MCV MCH MCHC RDW Plt Count MPV Neut % (Auto) Lymph % (Auto) [place] % (Auto) Eos % (Auto) Baso % (Auto) Neut # (Auto) Lymph # (Auto) [place] # (Auto) Eos # (Auto) Baso # (Auto) Sodium 150 H Potassium 3.6 Chloride 114 H Carbon Dioxide 28 Anion Gap 12 BUN 21 H Creatinine 0.8 Est GFR ( Amer) > 60 Est GFR (Non-Af Amer) > 60 POC Glucose (mg/dL) 128 H 95 Random Glucose 108 Calcium 9.2 Phosphorus 3.8 Magnesium 2.5 H Total Bilirubin 0.5 AST 43 ALT 37 Alkaline Phosphatase 61 Total Protein 7.5 Albumin 4.0 Globulin 3.5 Albumin/Globulin Ratio 1.2 Fingerstick Blood Sugar Results: 95 Review of Systems - Review of Systems Systems not reviewed;Unavailable: Acuity of Condition Assessment/Plan - Assessment and Plan (Free Text) Assessment: Mr. Aguayo is a 52-year-old man with no known past medical history, who presented to the ED in the morning with left side weakness. Non-contrast CT scan of the head was done in the ED and showed a large right cerebral infarct with 4 mm midline shift. He was given aspirin and transferred to the ICU after he became more lethargic. A repeat non-contrast CT scan of the head was done at around 12 PM today and showed worsening midline shift. Patient received hypertonic saline for 2 days. Currently patient is off fluids and is getting tube feeding via NG tube. Patient alert and able to follow commands. Neuro: - Acute right MCA infarct with 9.6mm midline shift and hemorrhagic conversion - Dr. Marvin consulted; recommendations appreciated - MRI brain 08/15/18: * There is a relatively large subacute right MCA territory infarct with areas of hemorrhage in the basal ganglia and right posterior frontoparietal watershed zone as described. persistent mass effect with compression of the right lateral ventricle and [id number] midline shunt with septum pellucidum located approximately 11mm to left of midline. Mild on dilation left ventricle due to mild compressive effects at the level of the left formaen of Garza - CT Head (08/15/18): Pending report - CT Head (08/14/18): obtained; see report for detail - CT Head (08/13/18) * Larger subacute MCA territory branch infarct with what appears to represent hemorrhagic conversion changes in the right basal ganglia. Moderate to fairly significant mass-effect with compression of the right cerebral hemisphere including right lateral ventrical which is shifted to the left side. Midline shift of the septum pellucidum estimated at approximately 10mm. Mild dilatation of the left lateral ventricle likely due to compression at the level of the left foramen of Monro. - CT head (08/12/18) * Hemorrhage conversion of known large right MCA territory infarction with local regional mass effect, diffuse cerebral edema, and 11mm midline from right to left. interval development of right SOTO territory infarction involving the paramedian frontal lobe. - CT Head (08/11/18) * large on MCA branch territory infarct involving right basal ganglia and right posterior frontoparietal region extending to vertex with mass effect with overlying sulcal effacement, compression of the right lateral ventricle and shift of the septum pellucidum from right to left lateral ventricle suggesting mild early compressive effects at the level of left foramen of Garza. No definitive evidence of acute intracranial hemorrhage. - CT head/neck * No evidence of occlusion, dissection or significant stenosis of the cervical carotid or vertebral circulation. mild atheroscelroritc plauqe changes seen both cartoid siphons. no evidence of large aneurysm nor vascular malformation. - NS 3% @ 60ml/hrs * Goal serum sodium of 145-150 and serum osm of less than 320 * Fs=299, Oss= 314 * Discontinued - Neurosurgery Dr. 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 Ivan Bustamante PGY1 <Conor Love - Last Filed: 08/15/18 19:00> CCU Objective - Vital Signs / Intake & Output Vital Signs (Last 4 hours): Vital Signs Temp Pulse Resp BP Pulse Ox 08/15/18 18:00 111 H 26 H 95 08/15/18 17:00 104 H 22 94 L 08/15/18 16:32 91 H 19 143/86 94 L 08/15/18 16:00 88 20 93 L 08/15/18 15:02 95 H 21 145/91 H 08/15/18 15:01 87 20 08/15/18 15:00 98.4 F 95 H 22 142/95 H 95 Intake and Output (Last 8hrs): Intake & Output 08/15/18 08/15/18 08/15/18 06:59 14:59 22:59 Intake Total 540 600 420 Output Total 500 500 650 Balance 40 100 -230 Weight 225 lb 3.2 oz Intake: Oral 40 180 Tube Feeding 480 420 240 Other 60 140 Output: Urine 500 500 650 Urine, Voided 500 500 650 Other: # Bowel Movements 0 1 - Medications Active Medications: Active Medications Generic Name Dose Route Start Last Admin Trade Name Freq PRN Reason Stop Dose Admin Acetaminophen 650 mg 08/12/18 09:41 08/12/18 15:26 Tylenol 650mg/20.3ml Solution Ud PO 650 mg Q6 PRN Administration Temperature Pantoprazole Sodium 40 mg 08/16/18 10:00 Protonix Ec Tab PO DAILY [facility] Rosuvastatin Calcium 20 mg 08/11/18 22:00 08/14/18 22:06 Crestor NG 20 mg HS [facility] Administration Senna/Docusate Sodium 1 tab 08/13/18 12:00 08/15/18 10:10 Senokot S 50 Mg-8.6 Mg PO 1 tab BID [facility] Administration - Patient Studies Lab Studies: Microbiology Studies 08/12/18 11:50 Blood Culture - Preliminary Blood NO GROWTH AFTER 3 DAYS 08/12/18 11:50 Blood Culture - Preliminary Blood NO GROWTH AFTER 3 DAYS Lab Studies 08/15/18 08/15/18 08/15/18 Range/Units 11:29 06:18 05:38 WBC (4.8-10.8) K/uL RBC (4.40-5.90) Mil/uL Hgb (12.0-18.0) g/dL Hct (35.0-51.0) % MCV (80.0-94.0) fL MCH (27.0-31.0) pg MCHC (33.0-37.0) g/dL RDW (11.5-14.5) % Plt Count (130-400) K/uL MPV (7.2-11.7) fL Neut % (Auto) (50.0-75.0) % Lymph % (Auto) (20.0-40.0) % [place] % (Auto) (0.0-10.0) % Eos % (Auto) (0.0-4.0) % Baso % (Auto) (0.0-2.0) % Neut # (Auto) (1.8-7.0) K/uL Lymph # (Auto) (1.0-4.3) K/uL [place] # (Auto) (0.0-0.8) K/uL Eos # (Auto) (0.0-0.7) K/uL Baso # (Auto) (0.0-0.2) K/uL Sodium 150 H (132-148) mmol/L Potassium 3.6 (3.6-5.2) mmol/L Chloride 114 H (98-107) mmol/L Carbon Dioxide 28 (22-30) mmol/L Anion Gap 12 (10-20) BUN 21 H (9-20) mg/dL Creatinine 0.8 (0.8-1.5) mg/dL Est GFR ( Amer) > 60 Est GFR (Non-Af Amer) > 60 POC Glucose (mg/dL) 95 128 H (65-110) mg/dL Random Glucose 108 (75-110) mg/dL Calcium 9.2 (8.6-10.4) mg/dl Phosphorus 3.8 (2.5-4.5) mg/dL Magnesium 2.5 H (1.6-2.3) mg/dL Total Bilirubin 0.5 (0.2-1.3) mg/dL AST 43 (17-59) U/L ALT 37 (21-72) U/L Alkaline Phosphatase 61 (38-126) U/L Total Protein 7.5 (6.3-8.3) g/dL Albumin 4.0 (3.5-5.0) g/dL Globulin 3.5 (2.2-3.9) gm/dL Albumin/Globulin Ratio 1.2 (1.0-2.1) 08/15/18 08/14/18 08/14/18 Range/Units 05:38 23:43 17:19 WBC 10.9 H (4.8-10.8) K/uL RBC 4.70 (4.40-5.90) Mil/uL Hgb 13.7 (12.0-18.0) g/dL Hct 41.2 (35.0-51.0) % MCV 87.7 (80.0-94.0) fL MCH 29.1 (27.0-31.0) pg MCHC 33.2 (33.0-37.0) g/dL RDW 14.2 (11.5-14.5) % Plt Count 159 (130-400) K/uL MPV 8.8 (7.2-11.7) fL Neut % (Auto) 74.2 (50.0-75.0) % Lymph % (Auto) 12.8 L (20.0-40.0) % [place] % (Auto) 11.8 H (0.0-10.0) % Eos % (Auto) 0.9 (0.0-4.0) % Baso % (Auto) 0.3 (0.0-2.0) % Neut # (Auto) 8.1 H (1.8-7.0) K/uL Lymph # (Auto) 1.4 (1.0-4.3) K/uL [place] # (Auto) 1.3 H (0.0-0.8) K/uL Eos # (Auto) 0.1 (0.0-0.7) K/uL Baso # (Auto) 0.0 (0.0-0.2) K/uL Sodium (132-148) mmol/L Potassium (3.6-5.2) mmol/L Chloride (98-107) mmol/L Carbon Dioxide (22-30) mmol/L Anion Gap (10-20) BUN (9-20) mg/dL Creatinine (0.8-1.5) mg/dL Est GFR ( Amer) Est GFR (Non-Af Amer) POC Glucose (mg/dL) 121 H 87 (65-110) mg/dL Random Glucose (75-110) mg/dL Calcium (8.6-10.4) mg/dl Phosphorus (2.5-4.5) mg/dL Magnesium (1.6-2.3) mg/dL Total Bilirubin (0.2-1.3) mg/dL AST (17-59) U/L ALT (21-72) U/L Alkaline Phosphatase (38-126) U/L Total Protein (6.3-8.3) g/dL Albumin (3.5-5.0) g/dL Globulin (2.2-3.9) gm/dL Albumin/Globulin Ratio (1.0-2.1) Laboratory Results - last 24 hr 08/14/18 08/14/18 08/15/18 17:19 23:43 05:38 WBC 10.9 H RBC 4.70 Hgb 13.7 Hct 41.2 MCV 87.7 MCH 29.1 MCHC 33.2 RDW 14.2 Plt Count 159 MPV 8.8 Neut % (Auto) 74.2 Lymph % (Auto) 12.8 L [place] % (Auto) 11.8 H Eos % (Auto) 0.9 Baso % (Auto) 0.3 Neut # (Auto) 8.1 H Lymph # (Auto) 1.4 [place] # (Auto) 1.3 H Eos # (Auto) 0.1 Baso # (Auto) 0.0 Sodium Potassium Chloride Carbon Dioxide Anion Gap BUN Creatinine Est GFR ( Amer) Est GFR (Non-Af Amer) POC Glucose (mg/dL) 87 121 H Random Glucose Calcium Phosphorus Magnesium Total Bilirubin AST ALT Alkaline Phosphatase Total Protein Albumin Globulin Albumin/Globulin Ratio 08/15/18 08/15/18 08/15/18 05:38 06:18 11:29 WBC RBC Hgb Hct MCV MCH MCHC RDW Plt Count MPV Neut % (Auto) Lymph % (Auto) [place] % (Auto) Eos % (Auto) Baso % (Auto) Neut # (Auto) Lymph # (Auto) [place] # (Auto) Eos # (Auto) Baso # (Auto) Sodium 150 H Potassium 3.6 Chloride 114 H Carbon Dioxide 28 Anion Gap 12 BUN 21 H Creatinine 0.8 Est GFR ( Amer) > 60 Est GFR (Non-Af Amer) > 60 POC Glucose (mg/dL) 128 H 95 Random Glucose 108 Calcium 9.2 Phosphorus 3.8 Magnesium 2.5 H Total Bilirubin 0.5 AST 43 ALT 37 Alkaline Phosphatase 61 Total Protein 7.5 Albumin 4.0 Globulin 3.5 Albumin/Globulin Ratio 1.2 Attending/Attestation - Attestation I have personally seen and examined this patient.: Yes I have fully participated in the care of the patient.: Yes I have reviewed all pertinent clinical information: Yes Notes (Text): 08/15/18 18:57 Today: August The Patient was seen and examined at the bedside, Medical records reviewed, and management issues were discussed and formulated with the house staff. I have reviewed all the relevant clinical, laboratory, hemodynamic, radiographic data and medications Events reviewed Pain issues, skin care, head of the bed elevation, glycemic control were addressed. Agree with above resident's assessment and treatment plans of care as transcribed in Dr. Bustamante's note.
--- NOTE | 2018-08-15 17:58 | CP.PCM.PN ---
Subjective - Date & Time of Evaluation Date of Evaluation: 08/15/18 Time of Evaluation: 14:00 - Subjective Subjective: Mr. Aguayo was seen and examined today at bedside in the ICU. He continues to have left side hemiplegia and some neglect. There were no acute events overnight. He was evaluated by PT today. Objective - Vital Signs/Intake and Output Vital Signs (last 24 hours): Temp Pulse Resp BP Pulse Ox 98.4 F 87 20 145/91 H 95 08/15/18 15:00 08/15/18 15:01 08/15/18 15:01 08/15/18 15:02 08/15/18 15:00 Intake and Output: 08/15/18 08/15/18 06:59 18:59 Intake Total 830 620 Output Total 500 Balance 330 620 - Medications Medications: Current Medications Acetaminophen (Tylenol 650mg/20.3ml Solution Ud) 650 mg PO Q6 PRN PRN Reason: Temperature Last Admin: 08/12/18 15:26 Dose: 650 mg Pantoprazole Sodium (Protonix Ec Tab) 40 mg PO DAILY [facility] Rosuvastatin Calcium (Crestor) 20 mg NG HS [facility] Last Admin: 08/14/18 22:06 Dose: 20 mg Senna/Docusate Sodium (Senokot S 50 Mg-8.6 Mg) 1 tab PO BID [facility] Last Admin: 08/15/18 10:10 Dose: 1 tab - Labs Labs: 08/15/18 05:38 08/15/18 05:38 PT 12.3 SECONDS (9.7-12.2) H 08/10/18 18:13 INR 1.1 08/10/18 18:13 APTT 30 SECONDS (21-34) 08/10/18 18:13 - Neurological Exam Additional comments: Neurologically unchanged from previous examination. Assessment and Plan (1) Stroke Assessment & Plan: Continue current management for secondary stroke prevention. PT/OT is needed for further improvement. Neurology will follow. Status: Acute
[2018-08-16 06:23] LABS: BASO # 0.1 K/uL (0.0-0.2); BASO % 0.9 % (0.0-2.0); EOS # 0.1 K/uL (0.0-0.7); EOS % 0.5 % (0.0-4.0); HEMOGLOBIN 14.2 g/dL (12.0-18.0); LYMPH # 1.3 K/uL (1.0-4.3); LYMPH % 8.5 % (20.0-40.0); MEAN CELL VOLUME 87.6 fL (80.0-94.0); MEAN CORPUSCULAR HEMOGLOBIN 28.7 pg (27.0-31.0); MEAN CORPUSCULAR HGB CONC 32.8 g/dL (33.0-37.0); MEAN PLATELET VOLUME 9.1 fL (7.2-11.7); MONO # 1.3 K/uL (0.0-0.8); NEUT # 12.1 K/uL (1.8-7.0); NEUT % 81.1 % (50.0-75.0); NRBC % 0.1 % (0.0-2.0); PLATELET COUNT 130 K/uL (130-400); RBC 4.94 Mil/uL (4.40-5.90); RED CELL DISTRIBUTION WIDTH 14.2 % (11.5-14.5); WHITE BLOOD COUNT 14.9 K/uL (4.8-10.8)
[2018-08-16 06:38] LABS: ALB/GLOB RATIO 1.2 (1.0-2.1); ALBUMIN 4.2 g/dL (3.5-5.0); ALT/SGPT 55 U/L (21-72); AST/SGOT 62 U/L (17-59); BLOOD UREA NITROGEN 23 mg/dL (9-20); CALCIUM 9.3 mg/dl (8.6-10.4); GFR NON-AFRICAN AMERICAN > 60
--- NOTE | 2018-08-16 08:50 | CP.PCM.PN ---
Subjective - Date & Time of Evaluation Date of Evaluation: 08/16/18 Time of Evaluation: 08:00 - Subjective Subjective: Patient was seen and examined by me Patient is awake, verbal, trying to follow simple commands in Ukrainian with the right side of body. There is no left upper or lower muscle strength. As mentioned previously the patient had a large CVA affecting the MCA area of basal ganglia as well as frontoparietal area and then had a hemorrhagic conversion. He had a repeat CT scan yesterday with the MCA infacrt and mild mass affect and compression of the right lateral ventricle Objective - Vital Signs/Intake and Output Vital Signs (last 24 hours): Temp Pulse Resp BP Pulse Ox 98.7 F 117 H 23 147/95 H 96 08/16/18 04:00 08/16/18 07:01 08/16/18 07:01 08/16/18 07:01 08/16/18 07:01 Intake and Output: 08/16/18 08/16/18 06:59 18:59 Intake Total 735 140 Output Total 200 Balance 535 140 - Medications Medications: Current Medications Acetaminophen (Tylenol 650mg/20.3ml Solution Ud) 650 mg PO Q6 PRN PRN Reason: Temperature Last Admin: 08/12/18 15:26 Dose: 650 mg Pantoprazole Sodium (Protonix Ec Tab) 40 mg PO DAILY [facility] Rosuvastatin Calcium (Crestor) 20 mg NG HS [facility] Last Admin: 08/15/18 22:35 Dose: 20 mg Senna/Docusate Sodium (Senokot S 50 Mg-8.6 Mg) 1 tab PO BID [facility] Last Admin: 08/15/18 21:04 Dose: Not Given - Labs Labs: 08/16/18 06:12 08/16/18 06:12 PT 12.3 SECONDS (9.7-12.2) H 08/10/18 18:13 INR 1.1 08/10/18 18:13 APTT 30 SECONDS (21-34) 08/10/18 18:13 - Constitutional Appears: No Acute Distress, Chronically Ill - ENT Exam ENT Exam: Mucous Membranes Moist - Respiratory Exam Respiratory Exam: Clear to Ausculation Bilateral, NORMAL BREATHING PATTERN - Neurological Exam Neurological Exam: Alert, Altered, Awake Neuro motor strength exam: Left Upper Extremity: 0, Right Upper Extremity: 5, Right Lower Extremity: 0 - Skin Skin Exam: Normal Color, Warm Assessment and Plan - Assessment and Plan (Free Text) Assessment: Assessment and Plan (1) 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 Remains off of the hypertonic saline. 08/14: Today the 3% saline was stopped this morning. 08/13: At this time the patient has been on 3% saline. Per staff he seems to be more awake then when they first met him yesterday. There will be additional CT scans later today. Neurosurgery is following the case. Pending echo at this time. CT Head (08/11/18): large on MCA branch territory infarct involving right basal ganglia and right posterior frotnoparietal region extending to vertex with mass effect with overlying sulcal effacement, compression of the right lateral ventricle and shift of the septum pellucidum from right to left lateral ventricle suggesting mild early compressive effects at the level of left foramen of Garza. No definitive evidence of acute intracranial hemorrhage. CT head and neck: no evidence of occlusion, dissection or significatn stenosis of the cervical caroitd or vertebral circulation. mild atheroscelroritc plauqe changes seen both cartoid siphons. no evidence of large aneurysm nor vascular malformation. CT head (08/12/18); hemorrhage conversion of known large right MCA territoty infarction with local regional mass effect, diffuse cerenral edema, and 11mm midline from right to left. interval development of right SOTO territory infarction involving the paramedian frontal lobe, Neurosurgery on board-->on route to eval the patient per discussion with nurse based on latest CT neurology on board-->not candidate for tpa/nor thrombectomy per neuro notes Seizure precautions aspiration precautions neurochecks q1 Status: Acute (2) ETOH abuse Assessment & Plan: monitor for withdrawal Status: Chronic (3) Impaired glucose tolerance Assessment & Plan: will need monitoring of his sugars repeat a1c in one year to prevent overt diabetes Status: Acute (4) Lipid disorder Assessment & Plan: elevated cholestrol: 271 LDL: 184 HDL: 59 T crestor 20mg NG HS (5) Leukocytosis Assessment & Plan: likely inflammatory reaction second to stroke ordered blood, urine studies (6) Prophylactic measure Assessment & Plan: chemical anticoagulation contraindicated in light of hemorrhagic conversion of MCA stroke SCDs b/l Prognosis poor Correct phone number of son Yayo: Yayo at [phone]
[2018-08-16 08:54] LABS: LYMPHOCYTE 8 % (20-40); MONOCYTE 9 % (0-10); NEUTROPHIL 83 % (50-75); PLATELET ESTIMATE NORMAL (NORMAL); TOTAL CELLS COUNTED 100
[2018-08-16] MEDS: Docusate-Senna 50 mg-8.6 mg Tab PO SCH ×2 (10:04→17:26)
[2018-08-16] MEDS: Pantoprazole 40 mg EC Tab PO SCH (10:07)
[2018-08-16] MEDS: Acetaminophen 650mg/20.3ml solution UD PO PRN (16:35)
--- NOTE | 2018-08-16 18:50 | CP.PCM.PN ---
Subjective - Date & Time of Evaluation Date of Evaluation: 08/16/18 Time of Evaluation: 12:00 - Subjective Subjective: Mr. Aguayo was seen and examined today at bedside in the ICU. He had no complaints. He was awake and alert, but continued to have left side hemiplegia and neglect. Objective - Vital Signs/Intake and Output Vital Signs (last 24 hours): Temp Pulse Resp BP Pulse Ox 100.9 F H 102 H 23 156/94 H 96 08/16/18 16:35 08/16/18 17:35 08/16/18 17:00 08/16/18 15:09 08/16/18 17:00 Intake and Output: 08/16/18 08/16/18 06:59 18:59 Intake Total 735 730 Output Total 200 Balance 535 730 - Medications Medications: Current Medications Acetaminophen (Tylenol 650mg/20.3ml Solution Ud) 650 mg PO Q6 PRN PRN Reason: Temperature Last Admin: 08/16/18 16:35 Dose: 650 mg Pantoprazole Sodium (Protonix Ec Tab) 40 mg PO DAILY [facility] Last Admin: 08/16/18 10:07 Dose: 40 mg Rosuvastatin Calcium (Crestor) 20 mg NG HS [facility] Last Admin: 08/15/18 22:35 Dose: 20 mg Senna/Docusate Sodium (Senokot S 50 Mg-8.6 Mg) 1 tab PO BID [facility] Last Admin: 08/16/18 17:26 Dose: 1 tab - Labs Labs: 08/16/18 06:12 08/16/18 06:12 PT 12.3 SECONDS (9.7-12.2) H 08/10/18 18:13 INR 1.1 08/10/18 18:13 APTT 30 SECONDS (21-34) 08/10/18 18:13 - Neurological Exam Additional comments: Neurologically unchanged from previous examination. Assessment and Plan (1) Stroke Assessment & Plan: There is hemorrhagic conversion of the previously ischemic stroke. The etiology of the stroke is unclear, but, embolic etiology is likely. The patient was binge drinking the night before the stroke and may have had atrial fibrillation with consequently an embolic stroke. These strokes are more likely to have hemorrhagic conversion. Since this is not a primary hemorrhage and it occurred several days ago, he is safe to be started on prophylactic heparin for DVT Px. Will hold aspirin and other antiplatelet agents for now. Status: Acute
--- NOTE | 2018-08-17 02:00 | CON ---
DATE: 08/16/2018 REASON FOR CONSULTATION: Possible embolic acute CVA. HISTORY OF PRESENT ILLNESS: The patient is a 52-year-old male who presented to the emergency room with left-sided weakness, which he noticed after he wake up from his sleep after drinking night with his friends. The patient has a history of heavy EtOH abuse and has no known prior cardiac history or history of stroke in the past. CT scan of the hip was consistent with right middle cerebral artery tributary, which became hemorrhagic on the most recent CAT scan performed yesterday. Brain MRI done two days ago confirmed relatively large subacute mid cerebral artery territory infarct with areas of hemorrhage in the basal ganglia and right posterior frontoparietal watershed zone with persistent mass effect with compression of the right lateral ventricle and right to left midline shift. The patient is currently tachycardiac, but does not appear to be in any respiratory distress. MEDICATIONS: Crestor 20 mg once a day, Protonix 40 mg p.o. once a day, Tylenol 650 mg every 6 hours p.r.n. PHYSICAL EXAMINATION: GENERAL: The patient is an middle-aged male who is drowsy and dysarthric, does not appear to be in acute distress. VITAL SIGNS: Blood pressure 156/94, heart rate 134, sinus tachycardia in monitor, temperature 99.4, respirations 24. HEENT: No pallor or icterus. NECK: No JVD. CHEST: Diminished breath sounds over the bases. HEART: S1 and S2 are regular. EXTREMITIES: Left hemiplegia. LABORATORY DATA: Hemoglobin and hematocrit 14.1 and 43.2, white count 14.9, platelet count 130,000. Today's SMA-7: Sodium 149, potassium 4.2, chloride 115, CO2 of 25, glucose 122, BUN 23, creatinine 0.8. The patient's drug screen was positive for cannabinoids. Admitting EKG revealed sinus rhythm at the rate of 86. The most recent chest x-ray on 08/12/2018 two days after admission was unremarkable except for right internal jugular line. ASSESSMENT: Acute right mid cerebral artery territory infarct with hemorrhagic conversion as well as areas of hemorrhages in the basal ganglia and the right posterior frontoparietal watershed zone with mass effect and midline shift. RECOMMENDATIONS: I did review the 2-D echocardiograph study that was performed. The basic study revealed no evidence of intracavitary thrombus with normal ejection fraction, and the bubble study revealed no evidence of septal shunt. Despite the fact that the CVA is most likely embolic and the heart cannot be completely excluded as a source because of possibility of paroxysmal atrial fibrillation in view of history of heavy EtOH abuse. The fact that anticoagulation is contraindicated. Doing DAMIEN at this critical time will not yield any further therapeutic decisions and can be postponed until much later time when the patient is more stable. If atrial fibrillation is documented, then future anticoagulation after the patient is completely stable and neurologically cleared may be considered with caution especially if the patient continues to abuse alcohol. Jacob De Jesus MD
[2018-08-17 06:42] LABS: ALB/GLOB RATIO 1.1 (1.0-2.1); ALBUMIN 4.1 g/dL (3.5-5.0); ALT/SGPT 93 U/L (21-72); AST/SGOT 92 U/L (17-59); BLOOD UREA NITROGEN 27 mg/dL (9-20); CALCIUM 9.3 mg/dl (8.6-10.4); GFR NON-AFRICAN AMERICAN > 60
[2018-08-17] MEDS: Pantoprazole 40 mg EC Tab PO SCH (11:02)
[2018-08-17] MEDS: Docusate-Senna 50 mg-8.6 mg Tab PO SCH ×2 (11:02→18:19)
--- NOTE | 2018-08-17 12:06 | CP.PCM.PN ---
Subjective - Date & Time of Evaluation Date of Evaluation: 08/17/18 Time of Evaluation: 11:20 - Subjective Subjective: Patient was seen and examined by me with help of oven dumper. Currently not in any acute distress when I came and saw The NGT Jevity feeds fell off so we restarted this. He does not have left upper or left lower body movement, facial droop. Per review of PT notes they're able to get him to get to the edge of bed but he needs maximum assistance for anything after that. As mentioned previously the patient had a large CVA affecting the MCA area of basal ganglia as well as frontoparietal area and then had a hemorrhagic conversion and this has resulted in left side hemiplegia Objective - Vital Signs/Intake and Output Vital Signs (last 24 hours): Temp Pulse Resp BP Pulse Ox 99.2 F 119 H 23 148/94 H 96 08/17/18 08:00 08/17/18 08:00 08/17/18 08:00 08/17/18 08:00 08/17/18 08:00 Intake and Output: 08/17/18 08/17/18 06:59 18:59 Intake Total 720 Output Total 250 Balance 470 - Medications Medications: Current Medications Acetaminophen (Tylenol 650mg/20.3ml Solution Ud) 650 mg PO Q6 PRN PRN Reason: Temperature Last Admin: 08/16/18 16:35 Dose: 650 mg Pantoprazole Sodium (Protonix Ec Tab) 40 mg PO DAILY [facility] Last Admin: 08/17/18 11:02 Dose: 40 mg Rosuvastatin Calcium (Crestor) 20 mg NG HS [facility] Last Admin: 08/16/18 21:54 Dose: 20 mg Senna/Docusate Sodium (Senokot S 50 Mg-8.6 Mg) 1 tab PO BID [facility] Last Admin: 08/17/18 11:02 Dose: 1 tab - Labs Labs: 08/16/18 06:12 08/17/18 06:19 PT 12.3 SECONDS (9.7-12.2) H 08/10/18 18:13 INR 1.1 08/10/18 18:13 APTT 30 SECONDS (21-34) 08/10/18 18:13 - Eye Exam Eye Exam: EOMI - ENT Exam Additional comments: NGT Feeds - Respiratory Exam Respiratory Exam: Clear to Ausculation Bilateral, NORMAL BREATHING PATTERN - Cardiovascular Exam Cardiovascular Exam: REGULAR RHYTHM - Neurological Exam Neurological Exam: Alert, Awake Neuro motor strength exam: Left Upper Extremity: 0, Right Upper Extremity: 5, Left Lower Extremity: 0, Right Lower Extremity: 5 - Psychiatric Exam Psychiatric exam: Depressed, Flat Affect - Skin Skin Exam: Normal Color, Warm Assessment and Plan - Assessment and Plan (Free Text) Assessment: Assessment and Plan (1) 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 A DAMIEN at this time will not add anything further to theraputic decision and post pone for now for the future as he has just had hemmoragic conversion 08/16: He had a repeat CT scan yesterday with the MCA infacrt and mild mass affect and compression of the right lateral ventricle 08/15: Repeat Ct this morning, MRI later for today. Remains off of the hypertonic saline. 08/14: Today the 3% saline was stopped this morning. 08/13: At this time the patient has been on 3% saline. Per staff he seems to be more awake then when they first met him yesterday. There will be additional CT scans later today. Neurosurgery is following the case. Pending echo at this time. CT Head (08/11/18): large on MCA branch territory infarct involving right basal ganglia and right posterior frotnoparietal region extending to vertex with mass effect with overlying sulcal effacement, compression of the right lateral ventricle and shift of the septum pellucidum from right to left lateral ventricle suggesting mild early compressive effects at the level of left foramen of Garza. No definitive evidence of acute intracranial hemorrhage. CT head and neck: no evidence of occlusion, dissection or significatn stenosis of the cervical caroitd or vertebral circulation. mild atheroscelroritc plauqe changes seen both cartoid siphons. no evidence of large aneurysm nor vascular malformation. CT head (08/12/18); hemorrhage conversion of known large right MCA territoty infarction with local regional mass effect, diffuse cerenral edema, and 11mm mid line from right to left. interval development of right SOTO territory infarction involving the paramedian frontal lobe, Neurosurgery on board-->on route to eval the patient per discussion with nurse [place] on latest CT neurology on board-->not candidate for tpa/nor thrombectomy per neuro notes Seizure precautions aspiration precautions neurochecks q1 Status: Acute (2) ETOH abuse Assessment & Plan: monitor for withdrawal Status: Chronic (3) Impaired glucose tolerance Assessment & Plan: will need monitoring of his sugars repeat a1c in one year to prevent overt diabetes Status: Acute (4) Lipid disorder Assessment & Plan: elevated cholestrol: 271 LDL: 184 HDL: 59 T crestor 20mg NG HS (5) Leukocytosis Assessment & Plan: likely inflammatory reaction second to stroke ordered blood, urine studies (6) Prophylactic measure Assessment & Plan: chemical anticoagulation contraindicated in light of hemorrhagic conversion of MCA stroke Correct phone number of son Yayo: Yayo at [phone]
--- NOTE | 2018-08-17 14:12 | PN ---
DATE: 08/17/2018 SUBJECTIVE: No reported hypotension or ventricular arrhythmia. PHYSICAL EXAMINATION: GENERAL: The patient is slightly lethargic. VITAL SIGNS: Blood pressure /76, heart rate 118, temperature 99.6, respirations 22. HEENT: No pallor or icterus. CHEST: Diminished breath sounds over the bases. HEART: S1 and S2, regular. EXTREMITIES: No edema. LABORATORY DATA: SMA-7: Sodium 150, potassium 4.2, chloride 114, CO2 25, glucose 138, BUN 27, creatinine 1. Hemoglobin and hematocrit 14.2 and 43.3, white count 14.9, platelet count 130,000. ASSESSMENT: Acute right mid cerebral artery territory infarct with hemorrhagic conversion as well as areas of hemorrhage in the basal ganglia and right posterior frontoparietal watershed zone with mass effect and midline shift. RECOMMENDATIONS: Continue current Crestor 20 mg once a day, oral Protonix, and Tylenol p.r.n. No is justified at this time. Jacob De Jesus MD
[2018-08-18] MEDS: Acetaminophen 650mg/20.3ml solution UD PO PRN ×2 (00:51→22:07)
[2018-08-18 08:13] LABS: BASO % 0.2 % (0.0-2.0); EOS # 0.2 K/uL (0.0-0.7); EOS % 1.1 % (0.0-4.0); HEMOGLOBIN 14.9 g/dL (12.0-18.0); LYMPH # 1.6 K/uL (1.0-4.3); MEAN CELL VOLUME 88.2 fL (80.0-94.0); MEAN CORPUSCULAR HEMOGLOBIN 28.9 pg (27.0-31.0); MEAN CORPUSCULAR HGB CONC 32.7 g/dL (33.0-37.0); MEAN PLATELET VOLUME 10.5 fL (7.2-11.7); MONO # 1.6 K/uL (0.0-0.8); MONO % 10.8 % (0.0-10.0); NEUT # 11.2 K/uL (1.8-7.0); NEUT % 76.9 % (50.0-75.0); RBC 5.17 Mil/uL (4.40-5.90); RED CELL DISTRIBUTION WIDTH 13.6 % (11.5-14.5); WHITE BLOOD COUNT 14.5 K/uL (4.8-10.8)
[2018-08-18 08:55] LABS: ALBUMIN 4.1 g/dL (3.5-5.0); ALT/SGPT 262 U/L (21-72); AST/SGOT 248 U/L (17-59); BLOOD UREA NITROGEN 29 mg/dL (9-20); CALCIUM 9.5 mg/dl (8.6-10.4); GFR NON-AFRICAN AMERICAN > 60
[2018-08-18] MEDS: Pantoprazole 40 mg EC Tab PO SCH (09:10)
[2018-08-18] MEDS: Docusate-Senna 50 mg-8.6 mg Tab PO SCH ×2 (09:11→17:57)
--- NOTE | 2018-08-18 10:33 | CP.PCM.PN ---
<Hemal Pereyra - Last Filed: 08/18/18 10:33> Subjective - Date & Time of Evaluation Date of Evaluation: 08/18/18 Time of Evaluation: 10:33 Objective - Vital Signs/Intake and Output Vital Signs (last 24 hours): Temp Pulse Resp BP Pulse Ox 98.0 F 112 H 22 117/82 95 08/18/18 04:00 08/18/18 04:00 08/18/18 04:00 08/18/18 04:00 08/18/18 04:00 Intake and Output: 08/18/18 08/18/18 06:59 18:59 Intake Total 660 Output Total 500 Balance 160 - Medications Medications: Current Medications Acetaminophen (Tylenol 650mg/20.3ml Solution Ud) 650 mg PO Q6 PRN PRN Reason: Temperature Last Admin: 08/18/18 00:51 Dose: 650 mg Pantoprazole Sodium (Protonix Ec Tab) 40 mg PO DAILY [facility] Last Admin: 08/18/18 09:10 Dose: 40 mg Rosuvastatin Calcium (Crestor) 20 mg NG HS [facility] Last Admin: 08/17/18 21:37 Dose: 20 mg Senna/Docusate Sodium (Senokot S 50 Mg-8.6 Mg) 1 tab PO BID [facility] Last Admin: 08/18/18 09:11 Dose: 1 tab - Labs Labs: 08/18/18 08:05 08/18/18 08:05 PT 12.3 SECONDS (9.7-12.2) H 08/10/18 18:13 INR 1.1 08/10/18 18:13 APTT 30 SECONDS (21-34) 08/10/18 18:13 <Soy Moser H - Last Filed: 08/18/18 13:26> Subjective - Subjective Subjective: Patient continues to have left side hemiplegia as documented previously. Patient tells us he does have family members in [place] and as well as a son in [place]. Per review of PT notes they're able to get him to get to the edge of bed but he needs maximum assistance for anything after that. As mentioned previously the patient had a large CVA affecting the MCA area of basal ganglia as well as frontoparietal area and then had a hemorrhagic conversion and this has resulted in left side hemiplegia Objective - Vital Signs/Intake and Output Vital Signs (last 24 hours): Temp Pulse Resp BP Pulse Ox 98.0 F 112 H 22 117/82 95 08/18/18 04:00 08/18/18 04:00 08/18/18 04:00 08/18/18 04:00 08/18/18 04:00 Intake and Output: 08/18/18 08/18/18 06:59 18:59 Intake Total 660 Output Total 500 Balance 160 - Medications Medications: Current Medications Acetaminophen (Tylenol 650mg/20.3ml Solution Ud) 650 mg PO Q6 PRN PRN Reason: Temperature Last Admin: 08/18/18 00:51 Dose: 650 mg Pantoprazole Sodium (Protonix Ec Tab) 40 mg PO DAILY [facility] Last Admin: 08/18/18 09:10 Dose: 40 mg Rosuvastatin Calcium (Crestor) 20 mg NG HS [facility] Last Admin: 08/17/18 21:37 Dose: 20 mg Senna/Docusate Sodium (Senokot S 50 Mg-8.6 Mg) 1 tab PO BID [facility] Last Admin: 08/18/18 09:11 Dose: 1 tab - Labs Labs: 08/18/18 08:05 08/18/18 08:05 PT 12.3 SECONDS (9.7-12.2) H 08/10/18 18:13 INR 1.1 08/10/18 18:13 APTT 30 SECONDS (21-34) 08/10/18 18:13 - Constitutional Appears: No Acute Distress, Chronically Ill - Head Exam Head Exam: NORMAL INSPECTION - Eye Exam Eye Exam: EOMI, Normal appearance - ENT Exam Additional comments: Patient was able to stick tounge out and there was no deviation. He was able to move it left and right. Currently has NGT - Cardiovascular Exam Cardiovascular Exam: REGULAR RHYTHM - GI/Abdominal Exam GI & Abdominal Exam: Soft, Normal Bowel Sounds. 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 Patient would benefit from acute rehab, however this may not be possible due to patient's social situation. 08/17: Continue with PT, per cardiology we should continue to monitor for atrial fibrillation. A DAMIEN at this time will not add anything further to theraputic decision and post pone for now for the future as he has just had hemmoragic conversion 08/16: He had a repeat CT scan yesterday with the MCA infacrt and mild mass affect and compression of the right lateral ventricle 08/15: Repeat Ct this morning, MRI later for today. Remains off of the hypertonic saline. 08/14: Today the 3% saline was stopped this morning. 08/13: At this time the patient has been on 3% saline. Per staff he seems to be more awake then when they first met him yesterday. There will be additional CT scans later today. Neurosurgery is following the case. Pending echo at this time. CT Head (08/11/18): large on MCA branch territory infarct involving right basal ganglia and right posterior frotnoparietal region extending to vertex with mass effect with overlying sulcal effacement, compression of the right lateral ventricle and shift of the septum pellucidum from right to left lateral ventricle suggesting mild early compressive effects at the level of left foramen of Garza. No definitive evidence of acute intracranial hemorrhage. CT head and neck: no evidence of occlusion, dissection or significatn stenosis of the cervical caroitd or vertebral circulation. mild atheroscelroritc plauqe changes seen both cartoid siphons. no evidence of large aneurysm nor vascular malformation. CT head (08/12/18); hemorrhage conversion of known large right MCA territoty infarction with local regional mass effect, diffuse cerenral edema, and 11mm midline from right to left. interval development of right SOTO territory infarction involving the paramedian frontal lobe, Neurosurgery on board-->on route to eval the patient per discussion with nurse based on latest CT neurology on board-->not candidate for tpa/nor thrombectomy per neuro notes Seizure precautions Aspiration precautions (2) ETOH abuse Assessment & Plan: monitor for withdrawal Status: Chronic (3) Impaired glucose tolerance Assessment & Plan: will need monitoring of his sugars repeat a1c in one year to prevent overt diabetes Status: Acute (4) Lipid disorder Assessment & Plan: elevated cholestrol: 271 LDL: 184 HDL: 59 T crestor 20mg NG HS (5) Leukocytosis Assessment & Plan: likely inflammatory reaction second to stroke ordered blood, urine studies (6) Prophylactic measure Assessment & Plan: chemical anticoagulation contraindicated in light of hemorrhagic conversion of MCA stroke Correct phone number of son Yayo: Yayo at [phone]
[2018-08-18] MEDS ORDERED: Labetalol 25mg/5ml Syringe IVP STA (16:51)
--- NOTE | 2018-08-18 20:16 | CP.PCM.PCO ---
<Missy Grant - Last Filed: 08/18/18 20:16> Physician Communication Note - Physician Communication Note Physician Communication Note: Please see above <Bienvenido Castro - Last Filed: 08/19/18 07:53> Attending/Attestation - Attestation I have personally seen and examined this patient.: Yes I have fully participated in the care of the patient.: Yes I have reviewed all pertinent clinical information: Yes Notes (Text): 08/19/18 07:52 Patient was seen and examined with resident Dr. Vicki Grant Care of this patient was gone over in detail with Dr. Juanita Castro D.O.
[2018-08-18] MEDS: Ciprofloxacin 400mg/200ml D5W 400 MG/200 ML BAG IVPB SCH (22:15)
[2018-08-19] MEDS: Acetaminophen 650mg/20.3ml solution UD PO PRN (04:15)
[2018-08-19 06:21] LABS: BASO % 0.3 % (0.0-2.0); EOS # 0.2 K/uL (0.0-0.7); EOS % 1.3 % (0.0-4.0); HEMOGLOBIN 14.2 g/dL (12.0-18.0); LYMPH # 1.6 K/uL (1.0-4.3); LYMPH % 9.1 % (20.0-40.0); MEAN CELL VOLUME 87.8 fL (80.0-94.0); MEAN CORPUSCULAR HEMOGLOBIN 28.2 pg (27.0-31.0); MEAN CORPUSCULAR HGB CONC 32.1 g/dL (33.0-37.0); MEAN PLATELET VOLUME 10.7 fL (7.2-11.7); MONO # 1.7 K/uL (0.0-0.8); MONO % 9.5 % (0.0-10.0); NEUT # 14.4 K/uL (1.8-7.0); NEUT % 79.8 % (50.0-75.0); NRBC % 0.1 % (0.0-2.0); PLATELET COUNT 134 K/uL (130-400); RBC 5.05 Mil/uL (4.40-5.90); RED CELL DISTRIBUTION WIDTH 13.5 % (11.5-14.5)
[2018-08-19 06:27] LABS: ALBUMIN 3.7 g/dL (3.5-5.0); ALT/SGPT 329 U/L (21-72); AST/SGOT 229 U/L (17-59); BLOOD UREA NITROGEN 28 mg/dL (9-20); CALCIUM 9.2 mg/dl (8.6-10.4); GFR NON-AFRICAN AMERICAN > 60
--- NOTE | 2018-08-19 08:11 | CP.PCM.PN ---
<Olga Lidia Garland - Last Filed: 08/19/18 13:46> Subjective - Date & Time of Evaluation Date of Evaluation: 08/19/18 Time of Evaluation: 08:10 - Subjective Subjective: PGY-1 Olga Lidia Garland D.O. progress note for Dr. Norton's service. Patient was seen and examined this morning. He is sitting up in a chair at bedside. Her is alert, makes eye contact. He denies pain, including headache. He denies chest pain or SOB. Over night, patient was given labetaolol for sustained tachycardia. Additionally, patient was febrile at 101.7- he was started on cipro for positive Urine culture. Objective - Vital Signs/Intake and Output Vital Signs (last 24 hours): Temp Pulse Resp BP Pulse Ox 99.4 F 115 H 18 123/65 97 08/19/18 04:15 08/19/18 04:00 08/19/18 04:00 08/18/18 20:00 08/19/18 04:00 Intake and Output: 08/19/18 08/19/18 06:59 18:59 Intake Total 900 Output Total 350 Balance 550 - Medications Medications: Current Medications Acetaminophen (Tylenol 650mg/20.3ml Solution Ud) 650 mg PO Q6 PRN PRN Reason: Temperature Last Admin: 08/19/18 04:15 Dose: 650 mg Ciprofloxacin (Cipro 400mg/200ml Dsw) 400 mg in 200 mls @ 190.476 mls/hr IVPB Q12H [facility]; Protocol Stop: 08/22/18 22:01 Last Admin: 08/18/18 22:15 Dose: 190.476 mls/hr Lactobacillus Acidophilus (Bacid Acidophilus) 1 cap PO BID [facility] Pantoprazole Sodium (Protonix Ec Tab) 40 mg PO DAILY [facility] Last Admin: 08/18/18 09:10 Dose: 40 mg Rosuvastatin Calcium (Crestor) 20 mg NG HS [facility] Last Admin: 08/18/18 22:06 Dose: 20 mg Senna/Docusate Sodium (Senokot S 50 Mg-8.6 Mg) 1 tab PO BID [facility] Last Admin: 08/18/18 17:57 Dose: 1 tab - Labs Labs: 08/19/18 06:05 08/19/18 06:03 PT 12.3 SECONDS (9.7-12.2) H 08/10/18 18:13 INR 1.1 08/10/18 18:13 APTT 30 SECONDS (21-34) 08/10/18 18:13 - Head Exam Head Exam: ATRAUMATIC, NORMAL INSPECTION - Eye Exam Eye Exam: EOMI, Normal appearance, PERRL - ENT Exam ENT Exam: Mucous Membranes Moist - Neck Exam Neck Exam: Normal Inspection - Respiratory Exam Respiratory Exam: Clear to Ausculation Bilateral, NORMAL BREATHING PATTERN. absent: Accessory Muscle Use, Wheezes, Respiratory Distress - Cardiovascular Exam Cardiovascular Exam: Tachycardia, REGULAR RHYTHM - GI/Abdominal Exam GI & Abdominal Exam: Soft. absent: Tenderness - Rectal Exam Rectal Exam: Deferred - Extremities Exam Extremities Exam: Normal Inspection - Back Exam Back Exam: NORMAL INSPECTION - Neurological Exam Neurological Exam: Alert, Awake, CN II-XII Intact, Motor Sensory Deficit (L hemiplegia). absent: Normal Gait - Psychiatric Exam Psychiatric exam: Flat Affect, Normal Mood - Skin Skin Exam: Dry, Intact, Normal Color, Warm Assessment and Plan - Assessment and Plan (Free Text) Assessment: Patient is a 52 yo male with a PMH of gastric ulcers who presented with L-side paralysis. Found to have ischemic stroke then hemorrhagic conversion- suspect embolic stroke 2/2 Afib 2/2 alcohol. MRI on 08/14 showed large R MCA infarct and basal ganglia and posterior frontoparietal hemorrhagic with 11 mm midline shift. Patient continues to have tachycardia and fevers. Possible etiologies- central fever s/p CVA, HCAP/aspiration PNA, PE/DVT. 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 Neurology okay to start ppx anticoagualtion, hold antiplatelets. Plan: Hemorrhagic conversion of R MCA ischemic CVA- suspect embolic 2/2 Afib 2/2 alcohol use - Crestor 20 mg PO QHS - Hold anticoagulation - Lipid panel: choles 271, LDL 184, HDL 59, TG 100 - EKG: sinus tachycardia - Echo with bubble study: no thrombus, no PFO - Neurosurgery consulted (Naomy)- no intervention - Neurology consulted (Shavonne/Dain)- ppx anticoag okay, hold antiplatelets - Cardiology consulted (Neal)- no need for DAMIEN - PT/OT- recommend acute rehab Sinus tachycardia, fevers- r/o PE/DVT, ?central fevers 2/2 CVA, infection (PNA, UTI) - Most recent fever 101.7 on 08/18 10 PM - Procal low (0.12) - EKG: sinus tachycardia (130s) - Blood Cx no growth - Repeat pending - D-dimer elevated (3912) - CTA chest pending - LE Dopplers pending Transaminitis - Discontinue Tylenol, avoid hepatotoxic drugs - Abd u/s pending - Hepatitis panel pending UTI - Urine Cx: Enterococcus faecalis - Cipro 400 mg IV Q12H- started 08/18 - Repeat UA negative, Cx pending PNA- HCAP vs aspiration - CXR: Mild venous congestion. Patchy increased markings at the left lung base with small left pleural effusion. Small nodular density projects over the left lung apex. Cardiomegaly. - Start Vancomycin 1 g IV Q12H 08/19 - F/u trough - Start Zosyn 3. 08/19 - Lactobacillus BID Alcohol use disorder - MV daily - Thiamine 100 mg PO daily - Folate 1 g PO daily Constipation - Senakot BID - Miralax daily Ppx: VTE: SCDs GI: PTX 40 mg PO daily Case was discussed with attending, Dr. Norton. <Mariel Norton V - Last Filed: 08/19/18 17:51> Objective - Vital Signs/Intake and Output Vital Signs (last 24 hours): Temp Pulse Resp BP Pulse Ox 99.4 F 115 H 18 123/65 97 08/19/18 04:15 08/19/18 04:00 08/19/18 04:00 08/18/18 20:00 08/19/18 04:00 Intake and Output: 08/19/18 08/19/18 06:59 18:59 Intake Total 900 Output Total 350 Balance 550 - Medications Medications: Current Medications Acetaminophen (Tylenol 650mg/20.3ml Solution Ud) 650 mg PO Q6 PRN PRN Reason: Temperature Last Admin: 08/19/18 04:15 Dose: 650 mg Acetaminophen (Tylenol 325mg Tab) 650 mg PO Q6 PRN PRN Reason: Pain, moderate (4-7) Ciprofloxacin (Cipro 400mg/200ml Dsw) 400 mg in 200 mls @ 190.476 mls/hr IVPB Q12H [facility]; Protocol Stop: 08/22/18 22:01 Last Admin: 08/18/18 22:15 Dose: 190.476 mls/hr Lactobacillus Acidophilus (Bacid Acidophilus) 1 cap PO BID [facility] Pantoprazole Sodium (Protonix Ec Tab) 40 mg PO DAILY [facility] Last Admin: 08/18/18 09:10 Dose: 40 mg Polyethylene Glycol (Miralax) 17 gm PO DAILY [facility] Rosuvastatin Calcium (Crestor) 20 mg NG HS [facility] Last Admin: 08/18/18 22:06 Dose: 20 mg Senna/Docusate Sodium (Senokot S 50 Mg-8.6 Mg) 1 tab PO BID [facility] Last Admin: 08/18/18 17:57 Dose: 1 tab - Labs Labs: 08/19/18 06:05 08/19/18 06:03 PT 12.3 SECONDS (9.7-12.2) H 08/10/18 18:13 INR 1.1 08/10/18 18:13 APTT 30 SECONDS (21-34) 08/10/18 18:13 Assessment and Plan (1) Arterial ischemic stroke, MCA (middle cerebral artery), right, acute Status: Acute (2) ETOH abuse Status: Chronic (3) Impaired glucose tolerance Status: Acute (4) Lipid disorder Status: Acute (5) Leukocytosis Status: Acute (6) Prophylactic measure Status: Acute Attending/Attestation - Attestation I have personally seen and examined this patient.: Yes I have fully participated in the care of the patient.: Yes I have reviewed all pertinent clinical information, including history, physical exam and plan: Yes Notes (Text): Patient seen, examined, and case discussed with day-time resident. Patient is tachycardic; started spiking fevers about two days ago. Recultured and chest xray ordered EKG ordered Abdominal US given LFTs; tylenol d/c in light of LFTS patient has constipated, on stool softners, started laxative PT/OT reordered Assessment/Plan (1) Hemmoragic conversion of a right side MCA stroke Assessment & Plan: * Neurosurgery on board-->no intervention * neurology on board-->not candidate for tpa/nor thrombectomy per neuro notes * Seizure precautions * aspiration precautions * hold statin secondary to LFTs * aspirin held due to hemorrhagic conversion Imaging: * CT Head (08/11/18): large on MCA branch territory infarct involving right basal ganglia and right posterior frotnoparietal region extending to vertex with mass effect with overlying sulcal effacement, compression of the right lateral ventricle and shift of the septum pellucidum from right to left lateral ventricle suggesting mild early compressive effects at the level of left foramen of Garza. No definitive evidence of acute intracranial hemo rrhage. * CT head and neck: no evidence of occlusion, dissection or significatn stenosis of the cervical caroitd or vertebral circulation. mild atheroscelroritc plauqe changes seen both cartoid siphons. no evidence of large aneurysm nor vascular malformation. * CT head (08/12/18); hemorrhage conversion of known large right MCA territoty infarction with local regional mass effect, diffuse cerenral edema, and 11mm midline from right to left. interval development of right SOTO territory infarction involving the paramedian frontal lobe. * CT Head (08/15/18): relatively large right MCA territory infarct again with questionable hemorrhage conversion changes. Mild mass effect with overlying sulcal effacement and compression of the right lateral ventricle lower shift of the spetum pellucidum from left to right by approximately 11mm. Questionable hemorrhagic conversion * Brain MRI (08/15/18): Relatively large subacute right MCA territory infarct with areas of hemorrhage in the basal ganglkia and right posterio frontoparietal watershed zone as described. persistent mass effect with compression of the right lateral ventricle and right to left midline shift with septum pellucidium approximately 11mm to left of midline. Mild on dilatation left lateral ventricle due to mild compressive effects at level of left foramen of monro. Status: Acute (2) ETOH abuse Assessment & Plan: * Out of window for withdrawal * Thiamine 100mg PO daily * Folic acid 1 mg PO daily * MVI 1 tab PO daily Status: Chronic (3) Impaired glucose tolerance Assessment & Plan: * will need monitoring of his sugars * repeat a1c in one year to prevent overt diabetes Status: Acute (4) Lipid disorder Assessment & Plan: * elevated cholestrol: 271 * LDL: 184 * HDL: 59 * T * crestor 20mg PO HS (5) Leukocytosis Assessment & Plan: * Reordered blood, urine, and chest xray 08/19/18 * Ciprofloxacin 400mg IVQ12H (started 08/18/18) * Bacid 1 tab PO BID * Prior Blood culture (08/12/18): no growth after 5 days (6) Tachycardia Assessment & Plan: * Check portable chest xray, blood, and urine r/o infection * Patient is not hypoxic but is immobile due to large stroke; order for d-dimer; if positive order for CT angio * EKG to r/o atrial fibrillation (7) Transaminitis Assessment & Plan: * d/c tylenol secondary to transaminitis * Order for Abdominal US * Order for hepatitis panel * hold statin given elevated in LFTs (8) Constipation Assessment & Plan: * Docusate sodium/senna 1 tab PO BID * Start Miralax daily (9) Hypernatremia Assessment & Plan: * normalized (10) Prophylactic measure Assessment & Plan: * chemical anticoagulation contraindicated in light of hemorrhagic conversion of MCA stroke * Correct phone number of sonRafa Zee at [phone] * PT/OT eval * Aspiration precautions * Seizure precautions Addendum: 11) Pulmonary embolism and Lower deep vein thrombosis * CT Angio showed for extensive pulmonary thromboembolism * Venous doppler: extensive left lower extremity DVT (affected from stroke) * Patient had hemorrhagic conversion from ischemic MCA stroke * we have ordered for protein c/protein s, antiphospholid, factor leiden, anticardiolipin, lupus workup * patient not eligible for TPA (due to hemorrhagic stroke); patient is 9 days out from stroke. * Vascular surgery consulted for IVC filter * Discussed with ICU, patient return back to ICU for further monitoring.
[2018-08-19 08:52] LABS: LYMPHOCYTE 12 % (20-40); MONOCYTE 3 % (0-10); NEUTROPHIL 85 % (50-75); TOTAL CELLS COUNTED 100
[2018-08-19 08:53] LABS: PLATELET ESTIMATE NORMAL (NORMAL)
[2018-08-19] MEDS: POLYETHYLENE GLYCOL 3350 17 GM/Dose PACKET PO SCH (09:25)
[2018-08-19] MEDS: Pantoprazole 40 mg EC Tab PO SCH (09:26)
[2018-08-19] MEDS: Multiple Vitamins Tab PO SCH (09:26)
[2018-08-19] MEDS: Docusate-Senna 50 mg-8.6 mg Tab PO SCH ×2 (09:26→18:25)
--- NOTE | 2018-08-19 09:36 | RAD ---
Chest x-ray single frontal view History: Tachycardia. Comparison: 08/12/2018 Findings: Interval removal of a right central venous catheter and NG tube. Mild venous congestion. Patchy increased markings at the left lung base with small left pleural effusion. Small nodular density projects over the left lung apex. Cardiomegaly. No gross atherosclerotic calcification at the aortic knob. Degenerative changes in the spine. Impression: Interval removal of a right central venous catheter and NG tube. Mild venous congestion. Patchy increased markings at the left lung base with small left pleural effusion. Small nodular density projects over the left lung apex. Cardiomegaly.
[2018-08-19] MEDS: Ciprofloxacin 400mg/200ml D5W 400 MG/200 ML BAG IVPB SCH ×2 (09:42→22:24)
[2018-08-19] MEDS: Lactobacillus Acidophilus 500 MU Cap PO SCH ×2 (09:50→18:25)
[2018-08-19 11:45] LABS: SQUAMOUS EPITHIAL 8 /hpf (0-5); URINE BACTERIA RARE (<OCC); URINE BILIRUBIN NEGATIVE (NEGATIVE); URINE BLOOD NEGATIVE (NEGATIVE); URINE CLARITY Clear (Clear); URINE COLOR Amber (YELLOW); URINE GLUCOSE (UA) NORMAL (Normal); URINE LEUKOCYTE ESTERASE NEG Leu/uL (Negative); URINE PROTEIN 2+ mg/dL (NEGATIVE)
[2018-08-19] MEDS ORDERED: Labetalol 25mg/5ml Syringe IVP ONE ×2 (11:45→12:15)
--- NOTE | 2018-08-19 12:15 | CARD ---
APPROVED REPORT Date of service: 08/18/2018 EKG Measurement Heart [id number] <Conclusion> Sinus tachycardia Inferior infarct, age undetermined Abnormal ECG
[2018-08-19 12:34] LABS: HEPATITIS B SURFACE AG Negative (NEGATIVE)
[2018-08-19 12:40] LABS: HEPATITIS A IGM NEGATIVE (NEGATIVE); HEPATITIS B CORE AB NEGATIVE (NEGATIVE)
[2018-08-19 12:52] LABS: HEPATITIS C ANTIBODY NEGATIVE (NEGATIVE)
[2018-08-19] MEDS: Piperacill/Tazo 3.375gm in Dex 3.375 GM/50 ML BAG IVPB SCH ×2 (13:30→18:23)
--- NOTE | 2018-08-19 14:34 | CP.PCM.PN ---
<Shereen Ramos - Last Filed: 08/19/18 14:41> Subjective - Date & Time of Evaluation Date of Evaluation: 08/19/18 Time of Evaluation: 14:31 - Subjective Subjective: Neurology Consultation Follow-Up Note: Mr. Aguayo was seen and examined today in the ICU. He was sitting upright at the bedside in a chair. He offered no new complaints today. He was awake and alert. Mr. Aguayo continues to have left side hemiplegia and neglect. Objective - Vital Signs/Intake and Output Vital Signs (last 24 hours): Temp Pulse Resp BP Pulse Ox 98.0 F 115 H 18 123/65 100 08/19/18 12:00 08/19/18 12:00 08/19/18 12:00 08/18/18 20:00 08/19/18 12:00 Intake and Output: 08/19/18 08/19/18 06:59 18:59 Intake Total 900 Output Total 350 Balance 550 - Medications Medications: Current Medications Folic Acid (Folic Acid) 1 mg PO DAILY [facility] Last Admin: 08/19/18 09:26 Dose: 1 mg Ciprofloxacin (Cipro 400mg/200ml Dsw) 400 mg in 200 mls @ 190.476 mls/hr IVPB Q12H [facility]; Protocol Stop: 08/22/18 22:01 Last Admin: 08/19/18 09:42 Dose: 190.476 mls/hr Piperacillin Sod/Tazobactam Sod (Zosyn 3.375 Gm Iv Premix) 3.375 gm in 50 mls @ 100 mls/hr IVPB Q6H [facility]; Protocol Last Admin: 08/19/18 13:30 Dose: 100 mls/hr Vancomycin HCl 1,000 mg/ (Sodium Chloride) 250 mls @ 166.6 mls/hr IVPB Q12H [facility]; Protocol Last Admin: 08/19/18 12:18 Dose: 166.6 mls/hr Lactobacillus Acidophilus (Bacid Acidophilus) 1 cap PO BID [facility] Last Admin: 08/19/18 09:50 Dose: 1 cap Metoprolol Tartrate (Lopressor) 12.5 mg PO BIDBS [facility] Multivitamins (Hexavitamin) 1 tab PO DAILY [facility] Last Admin: 08/19/18 09:26 Dose: 1 tab Pantoprazole Sodium (Protonix Ec Tab) 40 mg PO DAILY [facility] Last Admin: 08/19/18 09:26 Dose: 40 mg Polyethylene Glycol (Miralax) 17 gm PO DAILY [facility] Last Admin: 08/19/18 09:25 Dose: 17 gm Rosuvastatin Calcium (Crestor) 20 mg NG HS [facility] Last Admin: 08/18/18 22:06 Dose: 20 mg Senna/Docusate Sodium (Senokot S 50 Mg-8.6 Mg) 1 tab PO BID [facility] Last Admin: 08/19/18 09:26 Dose: 1 tab Thiamine HCl (Vitamin B1 Tab) 100 mg PO DAILY [facility] Last Admin: 08/19/18 09:26 Dose: 100 mg - Labs Labs: 08/19/18 06:05 08/19/18 06:03 PT 12.3 SECONDS (9.7-12.2) H 08/10/18 18:13 INR 1.1 08/10/18 18:13 APTT 30 SECONDS (21-34) 08/10/18 18:13 - Constitutional Appears: Well, Non-toxic, No Acute Distress - Head Exam Head Exam: ATRAUMATIC, NORMOCEPHALIC - Eye Exam Eye Exam: EOMI, Normal appearance - Respiratory Exam Respiratory Exam: NORMAL BREATHING PATTERN - Neurological Exam Neurological Exam: Alert, Awake, Motor Sensory Deficit (sensation intact to LUE and LLE; + left hemiplegia with neglect) Neuro motor strength exam: Left Upper Extremity: 0, Right Upper Extremity: 3, Left Lower Extremity: 0, Right Lower Extremity: 3 - Psychiatric Exam Psychiatric exam: Normal Affect - Skin Skin Exam: Normal Color Assessment and Plan (1) Stroke Status: Acute - Assessment and Plan (Free Text) Assessment: Mr. Aguayo has a hemorrhagic conversion of the previous ischemic stroke. At this time there is still the question of when anticoagulation and antiplatelet agents should be initiated. We will order a repeat CT Head without contrast to evaluate to MCA infarct and hemorrhagic conversion. If there are no acute changes to the area of hemorrhage, we will begin ASA 81 mg PO daily and Heparin or Lovenox for anticoagulation. Continue physical, speech and occupational therapy. Case reviewed and discussed with Dr. Gautam, who agrees with the plan. Please do not hesitate to call back with any new developments, data updates or questions. Thank you for the opportunity to participate in the care of this patient. <Glenys Gautam - Last Filed: 08/19/18 23:14> Objective - Vital Signs/Intake and Output Vital Signs (last 24 hours): Temp Pulse Resp BP Pulse Ox 98.8 F 127 H 23 122/77 97 08/19/18 20:00 08/19/18 20:15 08/19/18 20:15 08/19/18 20:16 08/19/18 20:15 Intake and Output: 08/19/18 08/20/18 18:59 06:59 Intake Total 250 0 Balance 250 0 - Medications Medications: Current Medications Enoxaparin Sodium (Lovenox) 100 mg SC Q12 [facility] Last Admin: 08/19/18 21:54 Dose: 100 mg Folic Acid (Folic Acid) 1 mg PO DAILY [facility] Last Admin: 08/19/18 09:26 Dose: 1 mg Ciprofloxacin (Cipro 400mg/200ml Dsw) 400 mg in 200 mls @ 190.476 mls/hr IVPB Q12H [facility]; Protocol Stop: 08/22/18 22:01 Last Admin: 08/19/18 22:24 Dose: 190.476 mls/hr Piperacillin Sod/Tazobactam Sod (Zosyn 3.375 Gm Iv Premix) 3.375 gm in 50 mls @ 100 mls/hr IVPB Q6H [facility]; Protocol Last Admin: 08/19/18 18:23 Dose: 100 mls/hr Vancomycin HCl 1,000 mg/ (Sodium Chloride) 250 mls @ 166.6 mls/hr IVPB Q12H [facility]; Protocol Last Admin: 08/19/18 12:18 Dose: 166.6 mls/hr Lactobacillus Acidophilus (Bacid Acidophilus) 1 cap PO BID [facility] Last Admin: 08/19/18 18:25 Dose: 1 cap Metoprolol Tartrate (Lopressor) 5 mg IVP Q6H PRN PRN Reason: Systolic Blood Pressure >160 Multivitamins (Hexavitamin) 1 tab PO DAILY [facility] Last Admin: 08/19/18 09:26 Dose: 1 tab Pantoprazole Sodium (Protonix Ec Tab) 40 mg PO DAILY [facility] Last Admin: 08/19/18 09:26 Dose: 40 mg Polyethylene Glycol (Miralax) 17 gm PO DAILY [facility] Last Admin: 08/19/18 09:25 Dose: 17 gm Rosuvastatin Calcium (Crestor) 20 mg NG HS [facility] Last Admin: 08/18/18 22:06 Dose: 20 mg Senna/Docusate Sodium (Senokot S 50 Mg-8.6 Mg) 1 tab PO BID [facility] Last Admin: 08/19/18 18:25 Dose: 1 tab Thiamine HCl (Vitamin B1 Tab) 100 mg PO DAILY [facility] Last Admin: 08/19/18 09:26 Dose: 100 mg - Labs Labs: 08/19/18 06:05 08/19/18 06:03 PT 12.3 SECONDS (9.7-12.2) H 08/10/18 18:13 INR 1.1 08/10/18 18:13 APTT 30 SECONDS (21-34) 08/10/18 18:13 Assessment and Plan - Assessment and Plan (Free Text) Plan: Agree with above note and plan. Mr. Aguayo now has PE and DVT and at the same time has hemorrhagic conversion of his stroke. IT has been several days since hemorrhage, which is resolving. In an effort to control further loss of his lung, and in the course of waiting for GFF, we will start lovenox weight based. It was explained to the patinet that there is a chance of intracerebral hemorrhage, and he has agreed to lovenox. We will monitor him with daily Ct scans and if there is an acute changein mental status with intracerebral hemorrhage, we will stop the lovenox. Case discussed with Dr. Norton. Thank you Dr. Gautam
--- NOTE | 2018-08-19 14:47 | US ---
Date of service: 08/19/2018 HISTORY: transaminitis COMPARISON: None. TECHNIQUE: Sonographic evaluation of the abdomen. FINDINGS: LIVER: Measures 15.4 cm. Hepatopedal blood flow. Fatty infiltration manifest ultrasonographically as increased echogenicity of the liver parenchyma. No mass. No intrahepatic bile duct dilatation.Incidental finding(s): Small simple cyst 0.8 x 1.0 cm right hepatic GALLBLADDER: Unremarkable. No gallstones. COMMON BILE DUCT: Measures 3.0 mm. No stones. No dilatation. PANCREAS: Unremarkable as visualized. No mass. No ductal dilatation. RIGHT KIDNEY: Measures 6.1 x 12.2cm. Normal echogenicity. No calculus, mass, or hydronephrosis. LEFT KIDNEY: Measures 6.1 x 11.0cm. Normal echogenicity. No calculus, mass, or hydronephrosis. SPLEEN: Not visible. AORTA: No aneurysmal dilatation. IVC: Unremarkable. OTHER FINDINGS: None. IMPRESSION: No significant or acute findings to account for/ related to the clinical presentation. Limitations of the current examination: Nondiagnostic study of the spleen which is not visible on the current study
[2018-08-19] MEDS ORDERED: Iodixanol 320 mg/ml 150 ml Bottle IV ONE (15:50)
--- NOTE | 2018-08-19 16:57 | CT ---
Date of service: 08/19/2018 PROCEDURE: CT HEAD WITHOUT CONTRAST. HISTORY: Monitor MCA infarct and hemorrhagic conversion COMPARISON: Comparison made with prior CT scan brain dated 08/15/2018 TECHNIQUE: Axial computed tomography images were obtained through the head/brain without intravenous contrast. Radiation dose: Total exam DLP = 1110.35 mGy-cm. This CT exam was performed using one or more of the following dose reduction techniques: Automated exposure control, adjustment of the mA and/or kV according to patient size, and/or use of iterative reconstruction technique. FINDINGS: HEMORRHAGE: Continued evolution previously noted hemorrhagic conversion changes right MCA territory infarct. There is persistent mild mass effect with overlying sulcal effacement as well as compression of the right lateral ventricle and mild [id number] midline shift. Septum pellucidum is shifted across midline estimated at approximately 8 mm. Persistent mild dilatation of the left lateral ventricle consistent with minor compressive effects at the level of the left foramen of Monro. BRAIN: As above.. VENTRICLES: As above. CALVARIUM: Unremarkable. PARANASAL SINUSES: Unremarkable as visualized. No significant inflammatory changes. MASTOID AIR CELLS: Unremarkable as visualized. No inflammatory changes. OTHER FINDINGS: None. IMPRESSION: Continued evolution hemorrhagic conversion right MCA territory infarct. There is persistent mass effect with overlying sulcal effacement as well as compression of the right lateral ventricle and mild [id number] midline shift. Minimal prominence of the left lateral ventricle likely due to some minimal compressive effects at the level of the left foramen of Monro.
--- NOTE | 2018-08-19 17:17 | CT ---
Date of service: 08/19/2018 PROCEDURE: CT Chest with contrast (Pulmonary Angiogram) HISTORY: r/o PE COMPARISON: None available. TECHNIQUE: Axial computed tomography images were obtained of the chest in the pulmonary arterial phase of enhancement. Coronal and sagittal reformatted images were created and reviewed. Intravenous contrast dose: 100 mL Visipaque 320 Radiation dose: Total exam DLP = 607.95 mGy-cm. This CT exam was performed using one or more of the following dose reduction techniques: Automated exposure control, adjustment of the mA and/or kV according to patient size, and/or use of iterative reconstruction technique. FINDINGS: PULMONARY ARTERIES: The examination is technically suboptimal. There is poor enhancement of the pulmonary arteries relative to the scan time. Nevertheless, there is demonstration of extensive pulmonary arterial thromboembolism. There is thrombus seen in multiple right lower lobe branches, in the left lower lobe and in the left upper lobe including the lingular segment.. Additional lobes may be involved but evaluation is limited as described. AORTA: No acute findings. No thoracic aortic aneurysm. No aortic atherosclerotic calcification or mural plaque present. LUNGS: No pulmonary infiltrate. Vague nodular opacity noted in right lower lobe (series 5, image 77) of uncertain significance. Likely atelectatic. Follow-up advised. Similarly, there is high attenuation atelectasis/pleural thickening at the medial right posterior pleural surface which assumes a somewhat mass like configuration at its caudal extent as on series 4, image 87. This may represent enhancing lung parenchyma. However, similar pleural-based soft tissue density is seen at the posterior left lung base, as on series 4, image 86, that does not demonstrate high attenuation. Significance uncertain. Follow-up with CT chest is advised. PLEURAL SPACES: Unremarkable. No effusion or pneumothorax. HEART: Normal size heart. There is straightening of the interventricular septum. This may indicate right ventricular strain. Correlate with EKG. Normal diameter of main pulmonary artery. LYMPH NODES: No lymphadenopathy. BONES, CHEST WALL: Unremarkable. No fracture or destructive lesion OTHER FINDINGS: Multiple nonspecific small rounded low-attenuation masses in both lobes of the liver. Uncertain significance. Consider correlation with ultrasound examination. IMPRESSION: Technically limited examination. Extensive pulmonary thromboembolism. Possible right ventricular strain. Incidental atelectasis versus atypical pleural thickening in both lung bases as described above. Follow-up with chest CT advised. Nonspecific nodular opacity in right lower lobe. Followup advised. Multiple small rounded low-density masses in both lobes of the liver. Further evaluation advised with ultrasound.
[2018-08-19] MEDS ORDERED: Metoprolol 1 mg/ml Inj IVP PRN (17:41)
--- NOTE | 2018-08-19 18:39 | CP.PCM.CON ---
<Jacob Gao - Last Filed: 08/19/18 19:10> History of Present Illness - History of Present Illness History of Present Illness: PGY-[address] Walsh 52 yo M with no known past medical history, who presented to the ED in the morning with left side weakness. Non-contrast CT scan of the head was done in the ED and showed a large right cerebral infarct with 4 mm midline shift. He was given aspirin and transferred to the ICU after he became more lethargic. Repeat non-contrast CT scan of the head was done and showed worsening midline shift. Patient received hypertonic saline for 2 days. Patient became more alert and able to follow commands, was downgraded from ICU to telemetry. Readmitted to ICU for R heart strain and extensive PE (08/19). 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 Past Patient History - Past Medical History & Family History Past Medical History?: No - Past Social History Smoking Status: Unknown If Ever Smoked - MUSCULOSKELETAL/RHEUMATOLOGICAL Hx Falls: No - PSYCHIATRIC Hx Substance Use: No - SURGICAL HISTORY Hx Surgeries: No - ANESTHESIA Hx Anesthesia: No Meds Allergies/Adverse Reactions: Allergies Allergy/AdvReac Type Severity Reaction Status Date / Time No Known Allergies Allergy Verified 08/10/18 17:59 - Medications Medications: Current Medications Folic Acid (Folic Acid) 1 mg PO DAILY [facility] Last Admin: 08/19/18 09:26 Dose: 1 mg Ciprofloxacin (Cipro 400mg/200ml Dsw) 400 mg in 200 mls @ 190.476 mls/hr IVPB Q12H [facility]; Protocol Stop: 08/22/18 22:01 Last Admin: 08/19/18 09:42 Dose: 190.476 mls/hr Piperacillin Sod/Tazobactam Sod (Zosyn 3.375 Gm Iv Premix) 3.375 gm in 50 mls @ 100 mls/hr IVPB Q6H [facility]; Protocol Last Admin: 08/19/18 18:23 Dose: 100 mls/hr Vancomycin HCl 1,000 mg/ (Sodium Chloride) 250 mls @ 166.6 mls/hr IVPB Q12H [facility]; Protocol Last Admin: 08/19/18 12:18 Dose: 166.6 mls/hr Lactobacillus Acidophilus (Bacid Acidophilus) 1 cap PO BID [facility] Last Admin: 08/19/18 18:25 Dose: 1 cap Metoprolol Tartrate (Lopressor) 5 mg IVP Q6H PRN PRN Reason: Systolic Blood Pressure >160 Multivitamins (Hexavitamin) 1 tab PO DAILY [facility] Last Admin: 08/19/18 09:26 Dose: 1 tab Pantoprazole Sodium (Protonix Ec Tab) 40 mg PO DAILY [facility] Last Admin: 08/19/18 09:26 Dose: 40 mg Polyethylene Glycol (Miralax) 17 gm PO DAILY [facility] Last Admin: 08/19/18 09:25 Dose: 17 gm Rosuvastatin Calcium (Crestor) 20 mg NG HS [facility] Last Admin: 08/18/18 22:06 Dose: 20 mg Senna/Docusate Sodium (Senokot S 50 Mg-8.6 Mg) 1 tab PO BID [facility] Last Admin: 08/19/18 18:25 Dose: 1 tab Thiamine HCl (Vitamin B1 Tab) 100 mg PO DAILY [facility] Last Admin: 08/19/18 09:26 Dose: 100 mg Physical Exam - Constitutional Appears: Non-toxic, No Acute Distress - Head Exam Head Exam: ATRAUMATIC, NORMOCEPHALIC - Eye Exam Eye Exam: EOMI, Normal appearance - ENT Exam ENT Exam: Mucous Membranes Moist, Normal Exam - Neck Exam Neck exam: Positive for: Full Rom, Normal Inspection - Respiratory Exam Respiratory Exam: NORMAL BREATHING PATTERN. absent: Accessory Muscle Use, Respiratory Distress - Cardiovascular Exam Cardiovascular Exam: Tachycardia, +S1, +S2 - GI/Abdominal Exam GI & Abdominal Exam: Normal Bowel Sounds, Soft. absent: Distended, Firm, Guarding, Hernia, Rebound, Rigid, Tenderness - Extremities Exam Extremities exam: Positive for: normal capillary refill, normal inspection, pedal pulses present. Negative for: calf tenderness, joint swelling, pedal edema - Neurological Exam Neurological exam: Alert, Oriented x3 - Psychiatric Exam Psychiatric exam: Normal Affect, Normal Mood - Skin Skin Exam: Dry, Intact, Normal Color Results - Vital Signs Recent Vital Signs: Last Vital Signs Temp 98.9 F 08/19/18 16:00 Pulse 114 H 08/19/18 16:00 Resp 21 08/19/18 16:00 BP 106/61 08/19/18 16:00 Pulse Ox 99 08/19/18 16:00 - Labs Result Diagrams: 08/19/18 06:05 08/19/18 06:03 Labs: Laboratory Results - last 24 hr 08/18/18 08/19/18 08/19/18 18:28 00:02 06:03 WBC RBC Hgb Hct MCV MCH MCHC RDW Plt Count MPV Neut % (Auto) Lymph % (Auto) Noble % (Auto) Eos % (Auto) Baso % (Auto) Neut # (Auto) Lymph # (Auto) Noble # (Auto) Eos # (Auto) Baso # (Auto) Neutrophils % (Manual) Lymphocytes % (Manual) Monocytes % (Manual) Platelet Estimate RBC Morphology D-Dimer, Quantitative Sodium 147 Potassium 3.9 Chloride 106 Carbon Dioxide 27 Anion Gap 18 BUN 28 H Creatinine 1.0 Est GFR ( Amer) > 60 Est GFR (Non-Af Amer) > 60 POC Glucose (mg/dL) 188 H 183 H Random Glucose 147 H Calcium 9.2 Phosphorus 4.9 H Magnesium 2.5 H Total Bilirubin 0.7 AST 229 H ALT 329 H D Alkaline Phosphatase 85 Total Protein 7.6 Albumin 3.7 Globulin 3.8 Albumin/Globulin Ratio 1.0 Procalcitonin Urine Color Urine Clarity Urine pH Ur Specific [place] Urine Protein Urine Glucose (UA) Urine Ketones Urine Blood Urine Nitrate Urine Bilirubin Urine Urobilinogen Ur Leukocyte Esterase Urine WBC (Auto) Urine RBC (Auto) Ur Squamous Epith Cells Urine Bacteria Vancomycin Trough Hepatitis A IgM Ab Hep Bs Antigen Hep B Core IgM Ab Hepatitis C Antibody 08/19/18 08/19/18 08/19/18 06:05 07:07 11:03 WBC 18.0 H RBC 5.05 Hgb 14.2 Hct 44.4 MCV 87.8 MCH 28.2 MCHC 32.1 L RDW 13.5 Plt Count 134 MPV 10.7 Neut % (Auto) 79.8 H Lymph % (Auto) 9.1 L Noble % (Auto) 9.5 Eos % (Auto) 1.3 Baso % (Auto) 0.3 Neut # (Auto) 14.4 H Lymph # (Auto) 1.6 Noble # (Auto) 1.7 H Eos # (Auto) 0.2 Baso # (Auto) 0.0 Neutrophils % (Manual) 85 H Lymphocytes % (Manual) 12 L Monocytes % (Manual) 3 Platelet Estimate Normal RBC Morphology Normal D-Dimer, Quantitative Sodium Potassium Chloride Carbon Dioxide Anion Gap BUN Creatinine Est GFR ( Amer) Est GFR (Non-Af Amer) POC Glucose (mg/dL) 127 H 279 H Random Glucose Calcium Phosphorus Magnesium Total Bilirubin AST ALT Alkaline Phosphatase Total Protein Albumin Globulin Albumin/Globulin Ratio Procalcitonin Urine Color Urine Clarity Urine pH Ur Specific [place] Urine Protein Urine Glucose (UA) Urine Ketones Urine Blood Urine Nitrate Urine Bilirubin Urine Urobilinogen Ur Leukocyte Esterase Urine WBC (Auto) Urine RBC (Auto) Ur Squamous Epith Cells Urine Bacteria Vancomycin Trough Hepatitis A IgM Ab Hep Bs Antigen Hep B Core IgM Ab Hepatitis C Antibody 08/19/18 08/19/18 08/19/18 11:30 11:30 11:30 WBC RBC Hgb Hct MCV MCH MCHC RDW Plt Count MPV Neut % (Auto) Lymph % (Auto) Noble % (Auto) Eos % (Auto) Baso % (Auto) Neut # (Auto) Lymph # (Auto) Noble # (Auto) Eos # (Auto) Baso # (Auto) Neutrophils % (Manual) Lymphocytes % (Manual) Monocytes % (Manual) Platelet Estimate RBC Morphology D-Dimer, Quantitative Sodium Potassium Chloride Carbon Dioxide Anion Gap BUN Creatinine Est GFR ( Amer) Est GFR (Non-Af Amer) POC Glucose (mg/dL) Random Glucose Calcium Phosphorus Magnesium Total Bilirubin AST ALT Alkaline Phosphatase Total Protein Albumin Globulin Albumin/Globulin Ratio Procalcitonin 0.12 L Urine Color Melonie Urine Clarity Clear Urine pH 5.0 Ur Specific [place] 1.032 H Urine Protein 2+ H Urine Glucose (UA) Normal Urine Ketones Negative Urine Blood Negative Urine Nitrate Negative Urine Bilirubin Negative Urine Urobilinogen 4.0 Ur Leukocyte Esterase Neg Urine WBC (Auto) 2 Urine RBC (Auto) 1 Ur Squamous Epith Cells 8 H Urine Bacteria Rare Vancomycin Trough Hepatitis A IgM Ab Negative Hep Bs Antigen Negative Hep B Core IgM Ab Negative Hepatitis C Antibody Negative 08/19/18 08/19/18 08/19/18 11:30 12:05 16:12 WBC RBC Hgb Hct MCV MCH MCHC RDW Plt Count MPV Neut % (Auto) Lymph % (Auto) Noble % (Auto) Eos % (Auto) Baso % (Auto) Neut # (Auto) Lymph # (Auto) Noble # (Auto) Eos # (Auto) Baso # (Auto) Neutrophils % (Manual) Lymphocytes % (Manual) Monocytes % (Manual) Platelet Estimate RBC Morphology D-Dimer, Quantitative 3912 H Sodium Potassium Chloride Carbon Dioxide Anion Gap BUN Creatinine Est GFR ( Amer) Est GFR (Non-Af Amer) POC Glucose (mg/dL) 171 H Random Glucose Calcium Phosphorus Magnesium Total Bilirubin AST ALT Alkaline Phosphatase Total Protein Albumin Globulin Albumin/Globulin Ratio Procalcitonin Urine Color Urine Clarity Urine pH Ur Specific [place] Urine Protein Urine Glucose (UA) Urine Ketones Urine Blood Urine Nitrate Urine Bilirubin Urine Urobilinogen Ur Leukocyte Esterase Urine WBC (Auto) Urine RBC (Auto) Ur Squamous Epith Cells Urine Bacteria Vancomycin Trough < 5.0 L Hepatitis A IgM Ab Hep Bs Antigen Hep B Core IgM Ab Hepatitis C Antibody Assessment & Plan - Assessment and Plan (Free Text) Assessment: 52 yo M with no known past medical history readmitted to ICU for R heart strain and extensive PE. 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 Plan: Neuro: - Acute right MCA infarct with 9.6mm midline shift and hemorrhagic conversion - Dr. Marvin consulted; recommendations appreciated - MRI brain 08/15/18: * There is a relatively large subacute right MCA territory infarct with areas of hemorrhage in the basal ganglia and right posterior frontoparietal watershed zone as described. persistent mass effect with compression of the right lateral ventricle and [id number] midline shunt with septum pellucidum located approximately 11mm to left of midline. Mild on dilation left ventricle due to mild compressive effects at the level of the left formaen of Garza - CT Head (08/19/18): Continued evolution hemorrhagic conversion of R MCA infartc. Persistent mass effect with overlying sulcal effacement as well as compression of R lateral ventricle and mid R->L midline shift. - CT Head (08/15/18): Large R MCA infarct with questionable hemorrhagic conversion changes. Mild mass effect with overlying sulcal effacement and compr ession of R lateral ventricle lower shift of the septum pellucidum from L to R by ~ 11mm. - CT Head (08/14/18): obtained; see report for detail - CT Head (08/13/18) * Larger subacute MCA territory branch infarct with what appears to represent hemorrhagic conversion changes in the right basal ganglia. Moderate to fairly significant mass-effect with compression of the right cerebral hemisphere inc luding right lateral ventrical which is shifted to the left side. Midline shift of the septum pellucidum estimated at approximately 10mm. Mild dilatation of the left lateral ventricle likely due to compression at the level of the left foramen of Monro. - CT head (08/12/18) * Hemorrhage conversion of known large right MCA territory infarction with local regional mass effect, diffuse cerebral edema, and 11mm midline from right to left. interval development of right SOTO territory infarction involving the paramedian frontal lobe. - CT Head (08/11/18) * large on MCA branch territory infarct involving right basal ganglia and right posterior frontoparietal region extending to vertex with mass effect with overlying sulcal effacement, compression of the right lateral ventricle and shift of the septum pellucidum from right to left lateral ventricle suggesting mild early compressive effects at the level of left foramen of Garza. No definitive evidence of acute intracranial hemorrhage. - CT head/neck * No evidence of occlusion, dissection or significant stenosis of the cervical carotid or vertebral circulation. mild atheroscelroritc plauqe changes seen both cartoid siphons. no evidence of large aneurysm nor vascular malformation. - NS 3% @ 60ml/hrs * Goal serum sodium of 145-150 and serum osm of less than 320 * Tn=357, Oss= 314 * Discontinued - Neurosurgery Dr. Hernandez consulted; recommendations appreciated * No craniotomy warranted at this time CV: - ECHO obtained, per official report * Limited study: negative study * No evidence inter-cavitary shunt - quality assurance monitor final Pulm: - Chest CT (08/19): Technically limited exam. Extensive pulmonary thromboembolism. Possible R ventricular strain. Incidental atelecasis vs atypical pleural thickening in both lung bases. F/U Chest CT advised. Nonspecific nodular opacity in RLL. Multiple small rounded low density masses in both lobes of liver. Renal: - No acute issues - Monitor CMP, Mg, Phos ID: - No acute issues - Monitor CBC with diff Further recs as per Dr. Nico Gao DO, PGY-1 <Joy Walsh - Last Filed: 08/20/18 11:12> Meds - Medications Medications: Current Medications Enoxaparin Sodium (Lovenox) 100 mg SC Q12 [facility] Last Admin: 08/19/18 21:54 Dose: 100 mg Folic Acid (Folic Acid) 1 mg PO DAILY [facility] Last Admin: 08/19/18 09:26 Dose: 1 mg Ciprofloxacin (Cipro 400mg/200ml Dsw) 400 mg in 200 mls @ 190.476 mls/hr IVPB Q12H [facility]; Protocol Stop: 08/22/18 22:01 Last Admin: 08/20/18 10:04 Dose: 190.476 mls/hr Piperacillin Sod/Tazobactam Sod (Zosyn 3.375 Gm Iv Premix) 3.375 gm in 50 mls @ 100 mls/hr IVPB Q6H [facility]; Protocol Last Admin: 08/20/18 06:09 Dose: 100 mls/hr Vancomycin HCl 1,000 mg/ (Sodium Chloride) 250 mls @ 166.6 mls/hr IVPB Q12H [facility]; Protocol Last Admin: 08/20/18 01:00 Dose: 166.6 mls/hr Lactobacillus Acidophilus (Bacid Acidophilus) 1 cap PO BID [facility] Last Admin: 08/20/18 10:04 Dose: Not Given Metoprolol Tartrate (Lopressor) 5 mg IVP Q6H PRN PRN Reason: Systolic Blood Pressure >160 Multivitamins (Hexavitamin) 1 tab PO DAILY [facility] Last Admin: 08/19/18 09:26 Dose: 1 tab Pantoprazole Sodium (Protonix Ec Tab) 40 mg PO DAILY [facility] Last Admin: 08/19/18 09:26 Dose: 40 mg Polyethylene Glycol (Miralax) 17 gm PO DAILY [facility] Last Admin: 08/19/18 09:25 Dose: 17 gm Rosuvastatin Calcium (Crestor) 20 mg NG HS [facility] Last Admin: 08/18/18 22:06 Dose: 20 mg Senna/Docusate Sodium (Senokot S 50 Mg-8.6 Mg) 1 tab PO BID [facility] Last Admin: 08/20/18 10:05 Dose: Not Given Thiamine HCl (Vitamin B1 Tab) 100 mg PO DAILY [facility] Last Admin: 08/19/18 09:26 Dose: 100 mg Results - Vital Signs Recent Vital Signs: Last Vital Signs Temp 97.8 F 08/20/18 08:00 Pulse 128 H 08/20/18 10:01 Resp 25 H 08/20/18 10:01 BP 112/74 08/20/18 10:01 Pulse Ox 95 08/20/18 10:01 - Labs Result Diagrams: 08/20/18 06:00 08/20/18 06:00 Labs: Laboratory Results - last 24 hr 11/19/18 11/19/18 11/19/18 11:30 11:30 11:30 WBC RBC Hgb Hct MCV MCH MCHC RDW Plt Count MPV Neut % (Auto) Lymph % (Auto) Noble % (Auto) Eos % (Auto) Baso % (Auto) Neut # (Auto) Lymph # (Auto) Noble # (Auto) Eos # (Auto) Baso # (Auto) Neutrophils % (Manual) Band Neutrophils % Lymphocytes % (Manual) Monocytes % (Manual) Eosinophils % (Manual) Platelet Estimate RBC Morphology PT INR APTT D-Dimer, Quantitative Sodium Potassium Chloride Carbon Dioxide Anion Gap BUN Creatinine Est GFR ( Amer) Est GFR (Non-Af Amer) POC Glucose (mg/dL) Random Glucose Calcium Phosphorus Magnesium Total Bilirubin AST ALT Alkaline Phosphatase Total Protein Albumin Globulin Albumin/Globulin Ratio Procalcitonin 0.12 L Urine Color Melonie Urine Clarity Clear Urine pH 5.0 Ur Specific [place] 1.032 H Urine Protein 2+ H Urine Glucose (UA) Normal Urine Ketones Negative Urine Blood Negative Urine Nitrate Negative Urine Bilirubin Negative Urine Urobilinogen 4.0 Ur Leukocyte Esterase Neg Urine WBC (Auto) 2 Urine RBC (Auto) 1 Ur Squamous Epith Cells 8 H Urine Bacteria Rare Vancomycin Trough Hepatitis A IgM Ab Negative Hep Bs Antigen Negative Hep B Core IgM Ab Negative Hepatitis C Antibody Negative 08/19/18 08/19/18 08/19/18 11:30 12:05 16:12 WBC RBC Hgb Hct MCV MCH MCHC RDW Plt Count MPV Neut % (Auto) Lymph % (Auto) Noble % (Auto) Eos % (Auto) Baso % (Auto) Neut # (Auto) Lymph # (Auto) Noble # (Auto) Eos # (Auto) Baso # (Auto) Neutrophils % (Manual) Band Neutrophils % Lymphocytes % (Manual) Monocytes % (Manual) Eosinophils % (Manual) Platelet Estimate RBC Morphology PT INR APTT D-Dimer, Quantitative 3912 H Sodium Potassium Chloride Carbon Dioxide Anion Gap BUN Creatinine Est GFR ( Amer) Est GFR (Non-Af Amer) POC Glucose (mg/dL) 171 H Random Glucose Calcium Phosphorus Magnesium Total Bilirubin AST ALT Alkaline Phosphatase Total Protein Albumin Globulin Albumin/Globulin Ratio Procalcitonin Urine Color Urine Clarity Urine pH Ur Specific [place] Urine Protein Urine Glucose (UA) Urine Ketones Urine Blood Urine Nitrate Urine Bilirubin Urine Urobilinogen Ur Leukocyte Esterase Urine WBC (Auto) Urine RBC (Auto) Ur Squamous Epith Cells Urine Bacteria Vancomycin Trough < 5.0 L Hepatitis A IgM Ab Hep Bs Antigen Hep B Core IgM Ab Hepatitis C Antibody 08/19/18 08/20/18 08/20/18 21:22 06:00 06:00 WBC 16.6 H RBC 4.71 Hgb 13.7 Hct 40.9 MCV 86.9 MCH 29.0 MCHC 33.4 RDW 13.2 Plt Count 151 MPV 10.8 Neut % (Auto) 81.5 H Lymph % (Auto) 7.5 L Noble % (Auto) 7.8 Eos % (Auto) 2.6 Baso % (Auto) 0.6 Neut # (Auto) 81.5 H Lymph # (Auto) 7.5 H Noble # (Auto) 7.8 H Eos # (Auto) 2.6 H Baso # (Auto) 0.6 H Neutrophils % (Manual) 84 H Band Neutrophils % 1 Lymphocytes % (Manual) 10 L Monocytes % (Manual) 4 Eosinophils % (Manual) 1 Platelet Estimate Normal RBC Morphology Normal PT INR APTT D-Dimer, Quantitative Sodium 141 Potassium 4.4 Chloride 106 Carbon Dioxide 25 Anion Gap 13 BUN 25 H Creatinine 0.9 Est GFR ( Amer) > 60 Est GFR (Non-Af Amer) > 60 POC Glucose (mg/dL) 164 H Random Glucose 151 H Calcium 9.0 Phosphorus 3.9 Magnesium 2.5 H Total Bilirubin 0.8 AST 302 H D ALT 456 H D Alkaline Phosphatase 114 Total Protein 7.6 Albumin 3.7 Globulin 3.9 Albumin/Globulin Ratio 1.0 Procalcitonin Urine Color Urine Clarity Urine pH Ur Specific [place] Urine Protein Urine Glucose (UA) Urine Ketones Urine Blood Urine Nitrate Urine Bilirubin Urine Urobilinogen Ur Leukocyte Esterase Urine WBC (Auto) Urine RBC (Auto) Ur Squamous Epith Cells Urine Bacteria Vancomycin Trough Hepatitis A IgM Ab Hep Bs Antigen Hep B Core IgM Ab Hepatitis C Antibody 08/20/18 08/20/18 06:00 07:40 WBC RBC Hgb Hct MCV MCH MCHC RDW Plt Count MPV Neut % (Auto) Lymph % (Auto) Noble % (Auto) Eos % (Auto) Baso % (Auto) Neut # (Auto) Lymph # (Auto) Noble # (Auto) Eos # (Auto) Baso # (Auto) Neutrophils % (Manual) Band Neutrophils % Lymphocytes % (Manual) Monocytes % (Manual) Eosinophils % (Manual) Platelet Estimate RBC Morphology PT 17.1 H INR 1.6 APTT 35 H D-Dimer, Quantitative Sodium Potassium Chloride Carbon Dioxide Anion Gap BUN Creatinine Est GFR ( Amer) Est GFR (Non-Af Amer) POC Glucose (mg/dL) 146 H Random Glucose Calcium Phosphorus Magnesium Total Bilirubin AST ALT Alkaline Phosphatase Total Protein Albumin Globulin Albumin/Globulin Ratio Procalcitonin Urine Color Urine Clarity Urine pH Ur Specific [place] Urine Protein Urine Glucose (UA) Urine Ketones Urine Blood Urine Nitrate Urine Bilirubin Urine Urobilinogen Ur Leukocyte Esterase Urine WBC (Auto) Urine RBC (Auto) Ur Squamous Epith Cells Urine Bacteria Vancomycin Trough Hepatitis A IgM Ab Hep Bs Antigen Hep B Core IgM Ab Hepatitis C Antibody Attending/Attestation - Attestation I have personally seen and examined this patient.: Yes I have fully participated in the care of the patient.: Yes I have reviewed all pertinent clinical information: Yes Notes (Text): 08/20/18 11:11 Patient was hospitalized with acute CVA. Left-sided weakness. Persistent tachycardia. Patient underwent a CT scan of the chest angiogram showing evidence of multiple PEs noted. Left lower leg at DVT noted. Patient condition unstable. He will be monitored in ICU. If cleared by neurologist, anticoagulation can be started. IVC filter the recommended
[2018-08-19] MEDS ORDERED: Acetaminophen 650mg/20.3ml solution UD PO STA (21:29)
--- NOTE | 2018-08-19 21:43 | CP.PCM.CON ---
History of Present Illness - History of Present Illness History of Present Illness: Vascular Surgery: Dr. Mansfield Pt is a 52M with no significant PMHx who was brought to on 08/10/18 for L sided weakness. Pt woke up that morning with inability to move his left side. A code stroke was called and pt was found to have R MCA infarct. Over the course of his hospital stay, pt had multiple CT heads with continued hemorrhagic conversion of R MCA territory infarct. Pt was also found to be tachycardic and tachypneic today & CTA chest was ordered as well as dopplers of b/l lower extremities which showed L leg DVT as well as extensive PE. Pt currently on therapeutic Lovenox after discussion with neurology as far as risks/benefits of anticoagulation. Surgery consulted to evaluate for IVCF placement. PMHx: denies PSHx: denies SocialHx: unknown smoking/drug hx, daily EtOH NKDA Review of Systems - Review of Systems Systems not reviewed;Unavailable: Other Past Patient History - Past Medical History & Family History Past Medical History?: No - Past Social History Smoking Status: Unknown If Ever Smoked - MUSCULOSKELETAL/RHEUMATOLOGICAL Hx Falls: No - PSYCHIATRIC Hx Substance Use: No - SURGICAL HISTORY Hx Surgeries: No - ANESTHESIA Hx Anesthesia: No Meds Allergies/Adverse Reactions: Allergies Allergy/AdvReac Type Severity Reaction Status Date / Time No Known Allergies Allergy Verified 08/10/18 17:59 - Medications Medications: Current Medications Enoxaparin Sodium (Lovenox) 100 mg SC Q12 [facility] Folic Acid (Folic Acid) 1 mg PO DAILY [facility] Last Admin: 08/19/18 09:26 Dose: 1 mg Ciprofloxacin (Cipro 400mg/200ml Dsw) 400 mg in 200 mls @ 190.476 mls/hr IVPB Q12H [facility] ANTON[facility]; Protocol Stop: 08/22/18 22:01 Last Admin: 08/19/18 09:42 Dose: 190.476 mls/hr Piperacillin Sod/Tazobactam Sod (Zosyn 3.375 Gm Iv Premix) 3.375 gm in 50 mls @ 100 mls/hr IVPB Q6H [facility] AN[facility]; Protocol Last Admin: 08/19/18 18:23 Dose: 100 mls/hr Vancomycin HCl 1,000 mg/ (Sodium Chloride) 250 mls @ 166.6 mls/hr IVPB Q12H [facility]; Protocol Last Admin: 08/19/18 12:18 Dose: 166.6 mls/hr Lactobacillus Acidophilus (Bacid Acidophilus) 1 cap PO BID [facility] Last Admin: 08/19/18 18:25 Dose: 1 cap Metoprolol Tartrate (Lopressor) 5 mg IVP Q6H PRN PRN Reason: Systolic Blood Pressure >160 Multivitamins (Hexavitamin) 1 tab PO DAILY [facility] Last Admin: 08/19/18 09:26 Dose: 1 tab Pantoprazole Sodium (Protonix Ec Tab) 40 mg PO DAILY [facility] Last Admin: 08/19/18 09:26 Dose: 40 mg Polyethylene Glycol (Miralax) 17 gm PO DAILY [facility] Last Admin: 08/19/18 09:25 Dose: 17 gm Rosuvastatin Calcium (Crestor) 20 mg NG HS [facility] Last Admin: 08/18/18 22:06 Dose: 20 mg Senna/Docusate Sodium (Senokot S 50 Mg-8.6 Mg) 1 tab PO BID [facility] Last Admin: 08/19/18 18:25 Dose: 1 tab Thiamine HCl (Vitamin B1 Tab) 100 mg PO DAILY [facility] Last Admin: 08/19/18 09:26 Dose: 100 mg Physical Exam - Constitutional Appears: No Acute Distress - Head Exam Head Exam: ATRAUMATIC, NORMOCEPHALIC - Eye Exam Eye Exam: Normal appearance - ENT Exam ENT Exam: Mucous Membranes Moist - Respiratory Exam Respiratory Exam: NORMAL BREATHING PATTERN - Cardiovascular Exam Cardiovascular Exam: Tachycardia - GI/Abdominal Exam GI & Abdominal Exam: Soft. absent: Tenderness - Extremities Exam Additional comments: Left sided weakness with motor/sensory deficit, RUE/RLE motor/sensory intact - Neurological Exam Neurological exam: Alert, Motor Sensory Deficit (Left side ) - Skin Skin Exam: Dry, Warm Results - Vital Signs Recent Vital Signs: Last Vital Signs Temp 98.9 F 08/19/18 16:00 Pulse 127 H 08/19/18 20:15 Resp 23 08/19/18 20:15 BP 122/77 08/19/18 20:16 Pulse Ox 97 08/19/18 20:15 - Labs Result Diagrams: 08/19/18 06:05 08/19/18 06:03 Labs: Laboratory Results - last 24 hr 08/19/18 08/19/18 08/19/18 00:02 06:03 06:05 WBC 18.0 H RBC 5.05 Hgb 14.2 Hct 44.4 MCV 87.8 MCH 28.2 MCHC 32.1 L RDW 13.5 Plt Count 134 MPV 10.7 Neut % (Auto) 79.8 H Lymph % (Auto) 9.1 L [place] % (Auto) 9.5 Eos % (Auto) 1.3 Baso % (Auto) 0.3 Neut # (Auto) 14.4 H Lymph # (Auto) 1.6 [place] # (Auto) 1.7 H Eos # (Auto) 0.2 Baso # (Auto) 0.0 Neutrophils % (Manual) 85 H Lymphocytes % (Manual) 12 L Monocytes % (Manual) 3 Platelet Estimate Normal RBC Morphology Normal D-Dimer, Quantitative Sodium 147 Potassium 3.9 Chloride 106 Carbon Dioxide 27 Anion Gap 18 BUN 28 H Creatinine 1.0 Est GFR ( Amer) > 60 Est GFR (Non-Af Amer) > 60 POC Glucose (mg/dL) 183 H Random Glucose 147 H Calcium 9.2 Phosphorus 4.9 H Magnesium 2.5 H Total Bilirubin 0.7 AST 229 H ALT 329 H D Alkaline Phosphatase 85 Total Protein 7.6 Albumin 3.7 Globulin 3.8 Albumin/Globulin Ratio 1.0 Procalcitonin Urine Color Urine Clarity Urine pH Ur Specific [place] Urine Protein Urine Glucose (UA) Urine Ketones Urine Blood Urine Nitrate Urine Bilirubin Urine Urobilinogen Ur Leukocyte Esterase Urine WBC (Auto) Urine RBC (Auto) Ur Squamous Epith Cells Urine Bacteria Vancomycin Trough Hepatitis A IgM Ab Hep Bs Antigen Hep B Core IgM Ab Hepatitis C Antibody 08/19/18 08/19/18 08/19/18 07:07 11:03 11:30 WBC RBC Hgb Hct MCV MCH MCHC RDW Plt Count MPV Neut % (Auto) Lymph % (Auto) [place] % (Auto) Eos % (Auto) Baso % (Auto) Neut # (Auto) Lymph # (Auto) [place] # (Auto) Eos # (Auto) Baso # (Auto) Neutrophils % (Manual) Lymphocytes % (Manual) Monocytes % (Manual) Platelet Estimate RBC Morphology D-Dimer, Quantitative Sodium Potassium Chloride Carbon Dioxide Anion Gap BUN Creatinine Est GFR ( Amer) Est GFR (Non-Af Amer) POC Glucose (mg/dL) 127 H 279 H Random Glucose Calcium Phosphorus Magnesium Total Bilirubin AST ALT Alkaline Phosphatase Total Protein Albumin Globulin Albumin/Globulin Ratio Procalcitonin 0.12 L Urine Color Urine Clarity Urine pH Ur Specific [place] Urine Protein Urine Glucose (UA) Urine Ketones Urine Blood Urine Nitrate Urine Bilirubin Urine Urobilinogen Ur Leukocyte Esterase Urine WBC (Auto) Urine RBC (Auto) Ur Squamous Epith Cells Urine Bacteria Vancomycin Trough Hepatitis A IgM Ab Hep Bs Antigen Hep B Core IgM Ab Hepatitis C Antibody 08/19/18 08/19/18 08/19/18 11:30 11:30 11:30 WBC RBC Hgb Hct MCV MCH MCHC RDW Plt Count MPV Neut % (Auto) Lymph % (Auto) [place] % (Auto) Eos % (Auto) Baso % (Auto) Neut # (Auto) Lymph # (Auto) [place] # (Auto) Eos # (Auto) Baso # (Auto) Neutrophils % (Manual) Lymphocytes % (Manual) Monocytes % (Manual) Platelet Estimate RBC Morphology D-Dimer, Quantitative 3912 H Sodium Potassium Chloride Carbon Dioxide Anion Gap BUN Creatinine Est GFR ( Amer) Est GFR (Non-Af Amer) POC Glucose (mg/dL) Random Glucose Calcium Phosphorus Magnesium Total Bilirubin AST ALT Alkaline Phosphatase Total Protein Albumin Globulin Albumin/Globulin Ratio Procalcitonin Urine Color [place] Urine Clarity Clear Urine pH 5.0 Ur Specific [place] 1.032 H Urine Protein 2+ H Urine Glucose (UA) Normal Urine Ketones Negative Urine Blood Negative Urine Nitrate Negative Urine Bilirubin Negative Urine Urobilinogen 4.0 Ur Leukocyte Esterase Neg Urine WBC (Auto) 2 Urine RBC (Auto) 1 Ur Squamous Epith Cells 8 H Urine Bacteria Rare Vancomycin Trough Hepatitis A IgM Ab Negative Hep Bs Antigen Negative Hep B Core IgM Ab Negative Hepatitis C Antibody Negative 08/19/18 08/19/18 08/19/18 12:05 16:12 21:22 WBC RBC Hgb Hct MCV MCH MCHC RDW Plt Count MPV Neut % (Auto) Lymph % (Auto) [place] % (Auto) Eos % (Auto) Baso % (Auto) Neut # (Auto) Lymph # (Auto) [place] # (Auto) Eos # (Auto) Baso # (Auto) Neutrophils % (Manual) Lymphocytes % (Manual) Monocytes % (Manual) Platelet Estimate RBC Morphology D-Dimer, Quantitative Sodium Potassium Chloride Carbon Dioxide Anion Gap BUN Creatinine Est GFR ( Amer) Est GFR (Non-Af Amer) POC Glucose (mg/dL) 171 H 164 H Random Glucose Calcium Phosphorus Magnesium Total Bilirubin AST ALT Alkaline Phosphatase Total Protein Albumin Globulin Albumin/Globulin Ratio Procalcitonin Urine Color Urine Clarity Urine pH Ur Specific [place] Urine Protein Urine Glucose (UA) Urine Ketones Urine Blood Urine Nitrate Urine Bilirubin Urine Urobilinogen Ur Leukocyte Esterase Urine WBC (Auto) Urine RBC (Auto) Ur Squamous Epith Cells Urine Bacteria Vancomycin Trough < 5.0 L Hepatitis A IgM Ab Hep Bs Antigen Hep B Core IgM Ab Hepatitis C Antibody - Imaging and Cardiology CT scan - chest Status: Image reviewed by me, Report reviewed by me Assessment & Plan - Assessment and Plan (Free Text) Assessment: 52M with hemorrhagic stroke, now with DVT/PE requiring anticoagulation; eval for IVCF placement Plan: - plan for OR in AM - keep NPO after midnight - d/w Dr. Shyla Almonte
[2018-08-19] MEDS ORDERED: Tramadol 25 mg PO ONE (21:45)
[2018-08-19] MEDS ORDERED: Enoxaparin 100 mg Syringe SC SCH (22:00)
[2018-08-20] MEDS: Piperacill/Tazo 3.375gm in Dex 3.375 GM/50 ML BAG IVPB SCH ×4 (00:30→18:07)
--- NOTE | 2018-08-20 08:58 | CP.CCUPN ---
<Jacob Gao - Last Filed: 08/20/18 18:17> CCU Subjective - Physician Review Subjective (Free Text): 08/20/18 11:21 PGY-1 Critical Care Progress Note for Dr. Weir Patient seen and examined at bedside this AM. Scheduled for IVC filter procedure at 1 pm. Not currently on anticoaglation 2/2 to hemorrhagic conversion of R MCA infarct. 12 pt ROS unchanged at this time. Critical Care Time Spent (in minutes): 35 CCU Objective - Vital Signs / Intake & Output Vital Signs (Last 4 hours): Vital Signs Temp Pulse Resp BP Pulse Ox 08/20/18 08:00 97.8 F 08/20/18 06:00 134 H 23 95 08/20/18 05:01 133 H 19 128/89 97 Intake and Output (Last 8hrs): Intake & Output 08/19/18 08/20/18 08/20/18 22:59 06:59 14:59 Intake Total 850 350 Output Total 400 350 Balance 450 0 Weight 212 lb 12.8 oz Intake: Intake, IV Amount 250 350 Left Wrist 250 300 Right Antecubital 50 Oral 600 0 Output: Urine 400 350 Urine, Voided 400 350 - Physical Exam Head: Positive for: Atraumatic, Normocephalic Pupils: Positive for: PERRL Extroacular Muscles: Positive for: EOMI Conjunctiva: Positive for: Normal Mouth: Positive for: Moist Mucous Membranes Neck: Positive for: Normal Range of Motion Respiratory/Chest: Positive for: Good Air Exchange. Negative for: Respiratory Distress, Accessory Muscle Use, Wheezes, Rales, Retracting, Rhonchi Cardiovascular: Positive for: Normal S1, S2, Tachycardic Abdomen: Positive for: Normal Bowel Sounds. Negative for: Tenderness, Distention, Peritoneal Signs, Rebound, Guarding Upper Extremity: Positive for: Normal Inspection, Normal ROM, NORMAL PULSES, Neurovascularly Intact, Capillary Refill < 2s. Negative for: Cyanosis, Edema Lower Extremity: Positive for: Normal Inspection, NORMAL PULSES, Neurovascularly Intact, Capillary Refill < 2 s. Negative for: Edema, CALF TENDERNESS Neurological: Positive for: Speech Normal Skin: Positive for: Warm, Dry, Rashes, Normal Color Psychiatric: Positive for: Alert, Oriented x 3, Normal Insight, Normal Concentration - Medications Active Medications: Active Medications Generic Name Dose Route Start Last Admin Trade Name Freq PRN Reason Stop Dose Admin Enoxaparin Sodium 100 mg 08/19/18 22:00 08/19/18 21:54 Lovenox SC 100 mg Q12 MARCO ANTONIO Administration Folic Acid 1 mg 08/19/18 10:00 08/19/18 09:26 Folic Acid PO 1 mg DAILY MARCO ANTONIO Administration Ciprofloxacin 400 mg in 200 mls @ 190.476 mls/hr 08/18/18 22:00 08/19/18 22:24 Cipro 400mg/200ml Dsw IVPB 08/22/18 22:01 190.476 mls/hr Q12H MARCO ANTONIO Administration Protocol Piperacillin Sod/Tazobactam Sod 3.375 gm in 50 mls @ 100 mls/hr 08/19/18 12:00 08/20/18 06:09 Zosyn 3.375 Gm Iv Premix IVPB 100 mls/hr Q6H MARCO ANTONIO Administration Protocol Vancomycin HCl 1,000 mg/ 250 mls @ 166.6 mls/hr 08/19/18 12:00 08/20/18 01:00 Sodium Chloride IVPB 166.6 mls/hr Q12H MARCO ANTONIO Administration Protocol Lactobacillus Acidophilus 1 cap 08/19/18 10:00 08/19/18 18:25 Bacid Acidophilus PO 1 cap BID MARCO ANTONIO Administration Metoprolol Tartrate 5 mg 08/19/18 17:41 Lopressor IVP Q6H PRN Systolic Blood Pressure >160 Multivitamins 1 tab 08/19/18 10:00 08/19/18 09:26 Hexavitamin PO 1 tab DAILY MARCO ANTONIO Administration Pantoprazole Sodium 40 mg 08/16/18 10:00 08/19/18 09:26 Protonix Ec Tab PO 40 mg DAILY MARCO ANTONIO Administration Polyethylene Glycol 17 gm 08/19/18 10:00 08/19/18 09:25 Miralax PO 17 gm DAILY MARCO ANTONIO Administration Rosuvastatin Calcium 20 mg 08/11/18 22:00 08/18/18 22:06 Crestor NG 20 mg HS MARCO ANTONIO Administration Senna/Docusate Sodium 1 tab 08/13/18 12:00 08/19/18 18:25 Senokot S 50 Mg-8.6 Mg PO 1 tab BID MARCO ANTONIO Administration Thiamine HCl 100 mg 08/19/18 10:00 08/19/18 09:26 Vitamin B1 Tab PO 100 mg DAILY MARCO ANTONIO Administration - Patient Studies Lab Studies: Lab Studies 08/20/18 08/19/18 08/19/18 Range/Units 07:40 21:22 16:12 D-Dimer, Quantitative (0-243) ng/mlDDU POC Glucose (mg/dL) 146 H 164 H 171 H (65-110) mg/dL Procalcitonin (0.19-0.49) NG/ML Urine Color (YELLOW) Urine Clarity (Clear) Urine pH (5.0-8.0) Ur Specific [place] (1.003-1.030) Urine Protein (NEGATIVE) mg/dL Urine Glucose (UA) (Normal) mg/dL Urine Ketones (NEGATIVE) mg/dL Urine Blood (NEGATIVE) Urine Nitrate (NEGATIVE) Urine Bilirubin (NEGATIVE) Urine Urobilinogen (0.2-1.0) mg/dL Ur Leukocyte Esterase (Negative) Pravin/uL Urine WBC (Auto) (0-5) /hpf Urine RBC (Auto) (0-3) /hpf Ur Squamous Epith Cells (0-5) /hpf Urine Bacteria (<OCC) Vancomycin Trough (5.0-10.0) ug/mL Hepatitis A IgM Ab (NEGATIVE) Hep Bs Antigen (NEGATIVE) Hep B Core IgM Ab (NEGATIVE) Hepatitis C Antibody (NEGATIVE) 08/19/18 08/19/18 08/19/18 Range/Units 12:05 11:30 11:30 D-Dimer, Quantitative 3912 H (0-243) ng/mlDDU POC Glucose (mg/dL) (65-110) mg/dL Procalcitonin (0.19-0.49) NG/ML Urine Color (YELLOW) Urine Clarity (Clear) Urine pH (5.0-8.0) Ur Specific [place] (1.003-1.030) Urine Protein (NEGATIVE) mg/dL Urine Glucose (UA) (Normal) mg/dL Urine Ketones (NEGATIVE) mg/dL Urine Blood (NEGATIVE) Urine Nitrate (NEGATIVE) Urine Bilirubin (NEGATIVE) Urine Urobilinogen (0.2-1.0) mg/dL Ur Leukocyte Esterase (Negative) Pravin/uL Urine WBC (Auto) (0-5) /hpf Urine RBC (Auto) (0-3) /hpf Ur Squamous Epith Cells (0-5) /hpf Urine Bacteria (<OCC) Vancomycin Trough < 5.0 L (5.0-10.0) ug/mL Hepatitis A IgM Ab Negative (NEGATIVE) Hep Bs Antigen Negative (NEGATIVE) Hep B Core IgM Ab Negative (NEGATIVE) Hepatitis C Antibody Negative (NEGATIVE) 08/19/18 08/19/18 08/19/18 Range/Units 11:30 11:30 11:03 D-Dimer, Quantitative (0-243) ng/mlDDU POC Glucose (mg/dL) 279 H (65-110) mg/dL Procalcitonin 0.12 L (0.19-0.49) NG/ML Urine Color Melonie (YELLOW) Urine Clarity Clear (Clear) Urine pH 5.0 (5.0-8.0) Ur Specific [place] 1.032 H (1.003-1.030) Urine Protein 2+ H (NEGATIVE) mg/dL Urine Glucose (UA) Normal (Normal) mg/dL Urine Ketones Negative (NEGATIVE) mg/dL Urine Blood Negative (NEGATIVE) Urine Nitrate Negative (NEGATIVE) Urine Bilirubin Negative (NEGATIVE) Urine Urobilinogen 4.0 (0.2-1.0) mg/dL Ur Leukocyte Esterase Neg (Negative) Pravin/uL Urine WBC (Auto) 2 (0-5) /hpf Urine RBC (Auto) 1 (0-3) /hpf Ur Squamous Epith Cells 8 H (0-5) /hpf Urine Bacteria Rare (<OCC) Vancomycin Trough (5.0-10.0) ug/mL Hepatitis A IgM Ab (NEGATIVE) Hep Bs Antigen (NEGATIVE) Hep B Core IgM Ab (NEGATIVE) Hepatitis C Antibody (NEGATIVE) Laboratory Results - last 24 hr 08/19/18 08/19/18 08/19/18 11:03 11:30 11:30 D-Dimer, Quantitative POC Glucose (mg/dL) 279 H Procalcitonin 0.12 L Urine Color Melonie Urine Clarity Clear Urine pH 5.0 Ur Specific [place] 1.032 H Urine Protein 2+ H Urine Glucose (UA) Normal Urine Ketones Negative Urine Blood Negative Urine Nitrate Negative Urine Bilirubin Negative Urine Urobilinogen 4.0 Ur Leukocyte Esterase Neg Urine WBC (Auto) 2 Urine RBC (Auto) 1 Ur Squamous Epith Cells 8 H Urine Bacteria Rare Vancomycin Trough Hepatitis A IgM Ab Hep Bs Antigen Hep B Core IgM Ab Hepatitis C Antibody 08/19/18 08/19/18 08/19/18 11:30 11:30 12:05 D-Dimer, Quantitative 3912 H POC Glucose (mg/dL) Procalcitonin Urine Color Urine Clarity Urine pH Ur Specific [place] Urine Protein Urine Glucose (UA) Urine Ketones Urine Blood Urine Nitrate Urine Bilirubin Urine Urobilinogen Ur Leukocyte Esterase Urine WBC (Auto) Urine RBC (Auto) Ur Squamous Epith Cells Urine Bacteria Vancomycin Trough < 5.0 L Hepatitis A IgM Ab Negative Hep Bs Antigen Negative Hep B Core IgM Ab Negative Hepatitis C Antibody Negative 08/19/18 08/19/18 08/20/18 16:12 21:22 07:40 D-Dimer, Quantitative POC Glucose (mg/dL) 171 H 164 H 146 H Procalcitonin Urine Color Urine Clarity Urine pH Ur Specific [place] Urine Protein Urine Glucose (UA) Urine Ketones Urine Blood Urine Nitrate Urine Bilirubin Urine Urobilinogen Ur Leukocyte Esterase Urine WBC (Auto) Urine RBC (Auto) Ur Squamous Epith Cells Urine Bacteria Vancomycin Trough Hepatitis A IgM Ab Hep Bs Antigen Hep B Core IgM Ab Hepatitis C Antibody EKG/Cardiology Studies: Cardiology / EKG Studies 08/19/18 08:26 EKG [ELECTROCARDIOGRAM] Routine Comment: Mode Of Transportation: Reason For Exam: tachycardia Fingerstick Blood Sugar Results: 164 Review of Systems - Review of Systems All systems: reviewed and no additional remarkable complaints except Review of Systems: as per HPI Critical Care Progress Note - Nutrition Nutrition: Nutrition Category Date Time Status NPO Diet [DIET] Diets 08/20/18 Breakfast Active Assessment/Plan - Assessment and Plan (Free Text) Assessment: 52 yo M with no known past medical history readmitted to ICU for R heart strain and extensive PE. 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 Currently off anticoagulation, scheduled for IVC filter at 1PM. Per Dr. Weir, may continue IV heparin after procedure if hemorrhagic conversion stable. Plan: Neuro: - Acute right MCA infarct with 9.6mm midline shift and hemorrhagic conversion - Dr. Marvin consulted; recommendations appreciated -IVC filter scheduled today (08/20) at 1PM -per Dr Weir, may continue IV heparin s/p procedure if hemorrhagic conversion stabilizes. - MRI brain 08/15/18: * There is a relatively large subacute right MCA territory infarct with areas of hemorrhage in the basal ganglia and right posterior frontoparietal watershed zone as described. persistent mass effect with compression of the right lateral ventricle and [id number] midline shunt with septum pellucidum located approximately 11mm to left of midline. Mild on dilation left ventricle due to mild compressive effects at the level of the left formaen of Garza - CT Head (08/19/18): Continued evolution hemorrhagic conversion of R MCA infartc. Persistent mass effect with overlying sulcal effacement as well as compression of R lateral ventricle and mid R->L midline shift. - CT Head (08/15/18): Large R MCA infarct with questionable hemorrhagic conversion changes. Mild mass effect with overlying sulcal effacement and compression of R lateral ventricle lower shift of the septum pellucidum from L to R by ~ 11mm. - CT Head (08/14/18): obtained; see report for detail - CT Head (08/13/18) * Larger subacute MCA territory branch infarct with what appears to represent hemorrhagic conversion changes in the right basal ganglia. Moderate to fairly significant mass-effect with compression of the right cerebral hemisphere including right lateral ventrical which is shifted to the left side. Midline shift of the septum pellucidum estimated at approximately 10mm. Mild dilatation of the left lateral ventricle likely due to compression at the level of the left foramen of Monro. - CT head (08/12/18) * Hemorrhage conversion of known large right MCA territory infarction with local regional mass effect, diffuse cerebral edema, and 11mm midline from right to left. interval development of right SOTO territory infarction involving the paramedian frontal lobe. - CT Head (08/11/18) * large on MCA branch territory infarct involving right basal ganglia and right posterior frontoparietal region extending to vertex with mass effect with overlying sulcal effacement, compression of the right lateral ventricle and shift of the septum pellucidum from right to left lateral ventricle suggesting mild early compressive effects at the level of left foramen of Garza. No definitive evidence of acute intracranial hemorrhage. - CT head/neck * No evidence of occlusion, dissection or significant stenosis of the cervical carotid or vertebral circulation. mild atheroscelroritc plauqe changes seen both cartoid siphons. no evidence of large aneurysm nor vascular malformation. - NS 3% @ 60ml/hrs * Goal serum sodium of 145-150 and serum osm of less than 320 * By=[id number], Oss= [id number] * Discontinued - Neurosurgery Dr. Hernandez consulted; recommendations appreciated * No craniotomy warranted at this time CV: - ECHO obtained, per official report * Limited study: negative study * No evidence inter-cavitary shunt - cafeteria monitor Pulm: - Chest CT (08/19): Technically limited exam. Extensive pulmonary thromboembolism. Possible R ventricular strain. Incidental atelecasis vs atypical pleural thickening in both lung bases. F/U Chest CT advised. Nonspecific nodular opacity in RLL. Multiple small rounded low density masses in both lobes of liver. Renal: - No acute issues - Monitor CMP, Mg, Phos ID: - No acute issues - Monitor CBC with diff Case discussed with Dr. Destin Gao DO, PGY-1 <Dominik Weir - Last Filed: 08/20/18 18:46> CCU Objective - Vital Signs / Intake & Output Vital Signs (Last 4 hours): Vital Signs Temp Pulse Resp BP Pulse Ox 08/20/18 18:00 143 H 29 H 94 L 08/20/18 17:36 139 H 28 H 125/86 94 L 08/20/18 17:00 139 H 21 96 08/20/18 16:36 122 H 25 H 107/79 100 08/20/18 16:24 120 H 21 99/78 L 100 08/20/18 16:23 123 H 21 98 08/20/18 16:09 130 H 22 119/75 99 08/20/18 16:00 98.1 F 126 H 22 69 L 08/20/18 15:53 121 H 21 117/81 100 08/20/18 15:39 126 H 21 114/80 97 08/20/18 15:23 128 H 25 H 122/86 98 08/20/18 15:17 123 H 24 113/75 90 L 08/20/18 15:16 124 H 21 123/78 90 L 08/20/18 15:15 123 H Intake and Output (Last 8hrs): Intake & Output 08/20/18 08/20/18 08/20/18 06:59 14:59 22:59 Intake Total 350 600 350 Output Total 350 200 300 Balance 0 400 50 Weight 212 lb 12.8 oz Intake: IV 100 Intake, IV Amount 350 500 50 Left Wrist 300 500 50 Right Antecubital 50 Oral 0 0 300 Output: Urine 350 200 300 Urine, Voided 350 200 300 Other: # Bowel Movements 1 - Medications Active Medications: Active Medications Generic Name Dose Route Start Last Admin Trade Name Freq PRN Reason Stop Dose Admin Folic Acid 1 mg 08/19/18 10:00 08/20/18 16:32 Folic Acid PO 1 mg DAILY MARCO ANTONIO Administration Ciprofloxacin 400 mg in 200 mls @ 190.476 mls/hr 08/18/18 22:00 08/20/18 10:04 Cipro 400mg/200ml Dsw IVPB 08/22/18 22:01 190.476 mls/hr Q12H MARCO ANTONIO Administration Protocol Piperacillin Sod/Tazobactam Sod 3.375 gm in 50 mls @ 100 mls/hr 08/19/18 12:00 08/20/18 18:07 Zosyn 3.375 Gm Iv Premix IVPB 100 mls/hr Q6H MARCO ANTONIO Administration Protocol Vancomycin HCl 1,000 mg/ 250 mls @ 166.6 mls/hr 08/19/18 12:00 08/20/18 12:46 Sodium Chloride IVPB 166.6 mls/hr Q12H MARCO ANTONIO Administration Protocol Lactobacillus Acidophilus 1 cap 08/19/18 10:00 08/20/18 18:08 Bacid Acidophilus PO 1 cap BID MARCO ANTONIO Administration Metoprolol Tartrate 5 mg 08/19/18 17:41 Lopressor IVP Q6H PRN Systolic Blood Pressure >160 Multivitamins 1 tab 08/19/18 10:00 08/20/18 16:31 Hexavitamin PO 1 tab DAILY MARCO ANTONIO Administration Pantoprazole Sodium 40 mg 08/16/18 10:00 08/20/18 16:31 Protonix Ec Tab PO 40 mg DAILY MARCO ANTONIO Administration Polyethylene Glycol 17 gm 08/19/18 10:00 08/20/18 16:32 Miralax PO 17 gm DAILY MARCO ANTONIO Administration Rosuvastatin Calcium 20 mg 08/11/18 22:00 08/18/18 22:06 Crestor NG 20 mg HS MARCO ANTONIO Administration Senna/Docusate Sodium 1 tab 08/13/18 12:00 08/20/18 18:17 Senokot S 50 Mg-8.6 Mg PO Not Given BID MARCO ANTONIO Thiamine HCl 100 mg 08/19/18 10:00 08/20/18 16:31 Vitamin B1 Tab PO 100 mg DAILY MARCO ANTONIO Administration - Patient Studies Lab Studies: Microbiology Studies 08/19/18 14:08 Urine Culture - Final Urine,Catheterized No Growth (<1,000 CFU/ML) 08/19/18 11:30 Blood Culture - Preliminary Blood NO GROWTH AFTER 24 HOURS 08/19/18 11:30 Blood Culture - Preliminary Blood NO GROWTH AFTER 24 HOURS Lab Studies 08/20/18 08/20/18 08/20/18 Range/Units 16:18 12:29 07:40 WBC (4.8-10.8) K/uL RBC (4.40-5.90) Mil/uL Hgb (12.0-18.0) g/dL Hct (35.0-51.0) % MCV (80.0-94.0) fL MCH (27.0-31.0) pg MCHC (33.0-37.0) g/dL RDW (11.5-14.5) % Plt Count (130-400) K/uL MPV (7.2-11.7) fL Neut % (Auto) (50.0-75.0) % Lymph % (Auto) (20.0-40.0) % [place] % (Auto) (0.0-10.0) % Eos % (Auto) (0.0-4.0) % Baso % (Auto) (0.0-2.0) % Neut # (Auto) (1.8-7.0) K/uL Lymph # (Auto) (1.0-4.3) K/uL [place] # (Auto) (0.0-0.8) K/uL Eos # (Auto) (0.0-0.7) K/uL Baso # (Auto) (0.0-0.2) K/uL Neutrophils % (Manual) (50-75) % Band Neutrophils % (0-2) % Lymphocytes % (Manual) (20-40) % Monocytes % (Manual) (0-10) % Eosinophils % (Manual) (0-4) % Platelet Estimate (NORMAL) RBC Morphology PT (9.7-12.2) SECONDS INR APTT (21-34) SECONDS Sodium (132-148) mmol/L Potassium (3.6-5.2) mmol/L Chloride (98-107) mmol/L Carbon Dioxide (22-30) mmol/L Anion Gap (10-20) BUN (9-20) mg/dL Creatinine (0.8-1.5) mg/dL Est GFR ( Amer) Est GFR (Non-Af Amer) POC Glucose (mg/dL) 117 H 148 H 146 H (65-110) mg/dL Random Glucose (75-110) mg/dL Calcium (8.6-10.4) mg/dl Phosphorus (2.5-4.5) mg/dL Magnesium (1.6-2.3) mg/dL Total Bilirubin (0.2-1.3) mg/dL AST (17-59) U/L ALT (21-72) U/L Alkaline Phosphatase (38-126) U/L Total Protein (6.3-8.3) g/dL Albumin (3.5-5.0) g/dL Globulin (2.2-3.9) gm/dL Albumin/Globulin Ratio (1.0-2.1) 08/20/18 08/20/18 08/20/18 Range/Units 06:00 06:00 06:00 WBC 16.6 H (4.8-10.8) K/uL RBC 4.71 (4.40-5.90) Mil/uL Hgb 13.7 (12.0-18.0) g/dL Hct 40.9 (35.0-51.0) % MCV 86.9 (80.0-94.0) fL MCH 29.0 (27.0-31.0) pg MCHC 33.4 (33.0-37.0) g/dL RDW 13.2 (11.5-14.5) % Plt Count 151 (130-400) K/uL MPV 10.8 (7.2-11.7) fL Neut % (Auto) 81.5 H (50.0-75.0) % Lymph % (Auto) 7.5 L (20.0-40.0) % [place] % (Auto) 7.8 (0.0-10.0) % Eos % (Auto) 2.6 (0.0-4.0) % Baso % (Auto) 0.6 (0.0-2.0) % Neut # (Auto) 81.5 H (1.8-7.0) K/uL Lymph # (Auto) 7.5 H (1.0-4.3) K/uL [place] # (Auto) 7.8 H (0.0-0.8) K/uL Eos # (Auto) 2.6 H (0.0-0.7) K/uL Baso # (Auto) 0.6 H (0.0-0.2) K/uL Neutrophils % (Manual) 84 H (50-75) % Band Neutrophils % 1 (0-2) % Lymphocytes % (Manual) 10 L (20-40) % Monocytes % (Manual) 4 (0-10) % Eosinophils % (Manual) 1 (0-4) % Platelet Estimate Normal (NORMAL) RBC Morphology Normal PT 17.1 H (9.7-12.2) SECONDS INR 1.6 APTT 35 H (21-34) SECONDS Sodium 141 (132-148) mmol/L Potassium 4.4 (3.6-5.2) mmol/L Chloride 106 (98-107) mmol/L Carbon Dioxide 25 (22-30) mmol/L Anion Gap 13 (10-20) BUN 25 H (9-20) mg/dL Creatinine 0.9 (0.8-1.5) mg/dL Est GFR ( Amer) > 60 Est GFR (Non-Af Amer) > 60 POC Glucose (mg/dL) (65-110) mg/dL Random Glucose 151 H (75-110) mg/dL Calcium 9.0 (8.6-10.4) mg/dl Phosphorus 3.9 (2.5-4.5) mg/dL Magnesium 2.5 H (1.6-2.3) mg/dL Total Bilirubin 0.8 (0.2-1.3) mg/dL AST 302 H D (17-59) U/L ALT 456 H D (21-72) U/L Alkaline Phosphatase 114 (38-126) U/L Total Protein 7.6 (6.3-8.3) g/dL Albumin 3.7 (3.5-5.0) g/dL Globulin 3.9 (2.2-3.9) gm/dL Albumin/Globulin Ratio 1.0 (1.0-2.1) 08/19/18 Range/Units 21:22 WBC (4.8-10.8) K/uL RBC (4.40-5.90) Mil/uL Hgb (12.0-18.0) g/dL Hct (35.0-51.0) % MCV (80.0-94.0) fL MCH (27.0-31.0) pg MCHC (33.0-37.0) g/dL RDW (11.5-14.5) % Plt Count (130-400) K/uL MPV (7.2-11.7) fL Neut % (Auto) (50.0-75.0) % Lymph % (Auto) (20.0-40.0) % [place] % (Auto) (0.0-10.0) % Eos % (Auto) (0.0-4.0) % Baso % (Auto) (0.0-2.0) % Neut # (Auto) (1.8-7.0) K/uL Lymph # (Auto) (1.0-4.3) K/uL [place] # (Auto) (0.0-0.8) K/uL Eos # (Auto) (0.0-0.7) K/uL Baso # (Auto) (0.0-0.2) K/uL Neutrophils % (Manual) (50-75) % Band Neutrophils % (0-2) % Lymphocytes % (Manual) (20-40) % Monocytes % (Manual) (0-10) % Eosinophils % (Manual) (0-4) % Platelet Estimate (NORMAL) RBC Morphology PT (9.7-12.2) SECONDS INR APTT (21-34) SECONDS Sodium (132-148) mmol/L Potassium (3.6-5.2) mmol/L Chloride (98-107) mmol/L Carbon Dioxide (22-30) mmol/L Anion Gap (10-20) BUN (9-20) mg/dL Creatinine (0.8-1.5) mg/dL Est GFR ( Amer) Est GFR (Non-Af Amer) POC Glucose (mg/dL) 164 H (65-110) mg/dL Random Glucose (75-110) mg/dL Calcium (8.6-10.4) mg/dl Phosphorus (2.5-4.5) mg/dL Magnesium (1.6-2.3) mg/dL Total Bilirubin (0.2-1.3) mg/dL AST (17-59) U/L ALT (21-72) U/L Alkaline Phosphatase (38-126) U/L Total Protein (6.3-8.3) g/dL Albumin (3.5-5.0) g/dL Globulin (2.2-3.9) gm/dL Albumin/Globulin Ratio (1.0-2.1) Laboratory Results - last 24 hr 08/19/18 08/20/18 08/20/18 21:22 06:00 06:00 WBC 16.6 H RBC 4.71 Hgb 13.7 Hct 40.9 MCV 86.9 MCH 29.0 MCHC 33.4 RDW 13.2 Plt Count 151 MPV 10.8 Neut % (Auto) 81.5 H Lymph % (Auto) 7.5 L [place] % (Auto) 7.8 Eos % (Auto) 2.6 Baso % (Auto) 0.6 Neut # (Auto) 81.5 H Lymph # (Auto) 7.5 H [place] # (Auto) 7.8 H Eos # (Auto) 2.6 H Baso # (Auto) 0.6 H Neutrophils % (Manual) 84 H Band Neutrophils % 1 Lymphocytes % (Manual) 10 L Monocytes % (Manual) 4 Eosinophils % (Manual) 1 Platelet Estimate Normal RBC Morphology Normal PT INR APTT Sodium 141 Potassium 4.4 Chloride 106 Carbon Dioxide 25 Anion Gap 13 BUN 25 H Creatinine 0.9 Est GFR ( Amer) > 60 Est GFR (Non-Af Amer) > 60 POC Glucose (mg/dL) 164 H Random Glucose 151 H Calcium 9.0 Phosphorus 3.9 Magnesium 2.5 H Total Bilirubin 0.8 AST 302 H D ALT 456 H D Alkaline Phosphatase 114 Total Protein 7.6 Albumin 3.7 Globulin 3.9 Albumin/Globulin Ratio 1.0 08/20/18 08/20/18 08/20/18 06:00 07:40 12:29 WBC RBC Hgb Hct MCV MCH MCHC RDW Plt Count MPV Neut % (Auto) Lymph % (Auto) [place] % (Auto) Eos % (Auto) Baso % (Auto) Neut # (Auto) Lymph # (Auto) [place] # (Auto) Eos # (Auto) Baso # (Auto) Neutrophils % (Manual) Band Neutrophils % Lymphocytes % (Manual) Monocytes % (Manual) Eosinophils % (Manual) Platelet Estimate RBC Morphology PT 17.1 H INR 1.6 APTT 35 H Sodium Potassium Chloride Carbon Dioxide Anion Gap BUN Creatinine Est GFR ( Amer) Est GFR (Non-Af Amer) POC Glucose (mg/dL) 146 H 148 H Random Glucose Calcium Phosphorus Magnesium Total Bilirubin AST ALT Alkaline Phosphatase Total Protein Albumin Globulin Albumin/Globulin Ratio 08/20/18 16:18 WBC RBC Hgb Hct MCV MCH MCHC RDW Plt Count MPV Neut % (Auto) Lymph % (Auto) [place] % (Auto) Eos % (Auto) Baso % (Auto) Neut # (Auto) Lymph # (Auto) [place] # (Auto) Eos # (Auto) Baso # (Auto) Neutrophils % (Manual) Band Neutrophils % Lymphocytes % (Manual) Monocytes % (Manual) Eosinophils % (Manual) Platelet Estimate RBC Morphology PT INR APTT Sodium Potassium Chloride Carbon Dioxide Anion Gap BUN Creatinine Est GFR ( Amer) Est GFR (Non-Af Amer) POC Glucose (mg/dL) 117 H Random Glucose Calcium Phosphorus Magnesium Total Bilirubin AST ALT Alkaline Phosphatase Total Protein Albumin Globulin Albumin/Globulin Ratio Critical Care Progress Note - Nutrition Nutrition: Nutrition Category Date Time Status Dysphagia/Modified Consistency Diet [DIET] Diets 08/20/18 Dinner Active Attending/Attestation - Attestation I have personally seen and examined this patient.: Yes I have fully participated in the care of the patient.: Yes I have reviewed all pertinent clinical information: Yes Notes (Text): 08/20/18 18:43 Patient seen and examined Patient is being treated for pulmonary embolism status post IVC filter placement hold Anticoagulation for Worsening CAT scan of head continue ICU monitoring Case discussed with neurology
[2018-08-20 09:35] LABS: INR 1.6; PROTHROMBIN TIME 17.1 SECONDS (9.7-12.2)
[2018-08-20 09:37] LABS: HEMOGLOBIN 13.7 g/dL (12.0-18.0); MEAN CELL VOLUME 86.9 fL (80.0-94.0); RBC 4.71 Mil/uL (4.40-5.90); WHITE BLOOD COUNT 16.6 K/uL (4.8-10.8)
[2018-08-20 09:38] LABS: BASO % 0.6 % (0.0-2.0); EOS % 2.6 % (0.0-4.0); LYMPH % 7.5 % (20.0-40.0); MEAN CORPUSCULAR HGB CONC 33.4 g/dL (33.0-37.0); MEAN PLATELET VOLUME 10.8 fL (7.2-11.7); MONO % 7.8 % (0.0-10.0); NEUT % 81.5 % (50.0-75.0); PLATELET COUNT 151 K/uL (130-400); RED CELL DISTRIBUTION WIDTH 13.2 % (11.5-14.5)
[2018-08-20 09:39] LABS: BASO # 0.6 K/uL (0.0-0.2); EOS # 2.6 K/uL (0.0-0.7); LYMPH # 7.5 K/uL (1.0-4.3); MONO # 7.8 K/uL (0.0-0.8); NEUT # 81.5 K/uL (1.8-7.0)
[2018-08-20 09:41] LABS: ALBUMIN 3.7 g/dL (3.5-5.0); ALT/SGPT 456 U/L (21-72); AST/SGOT 302 U/L (17-59); BLOOD UREA NITROGEN 25 mg/dL (9-20); GFR NON-AFRICAN AMERICAN > 60
[2018-08-20] MEDS: Lactobacillus Acidophilus 500 MU Cap PO SCH ×2 (10:04→18:08)
[2018-08-20] MEDS: Ciprofloxacin 400mg/200ml D5W 400 MG/200 ML BAG IVPB SCH ×2 (10:04→21:45)
[2018-08-20] MEDS: Docusate-Senna 50 mg-8.6 mg Tab PO SCH ×2 (10:05→18:17)
[2018-08-20 10:36] LABS: BANDS 1 % (0-2); EOSINOPHIL 1 % (0-4); LYMPHOCYTE 10 % (20-40); MONOCYTE 4 % (0-10); NEUTROPHIL 84 % (50-75); TOTAL CELLS COUNTED 100
[2018-08-20 10:37] LABS: PLATELET ESTIMATE NORMAL (NORMAL)
--- NOTE | 2018-08-20 13:16 | RAD ---
Date of service: 08/20/2018 HISTORY: PICC line insertion COMPARISON: 08/19/2018 FINDINGS: LUNGS: No active pulmonary disease. Possible granulomatous disease PLEURA: No significant pleural effusion identified, no pneumothorax apparent. CARDIOVASCULAR: No aortic atherosclerotic calcification present. Normal cardiac size. Probable top-normal pulmonary venous status. Interval insertion right PICC line tip superior vena cava. OSSEOUS STRUCTURES: No significant abnormalities. VISUALIZED UPPER ABDOMEN: Normal. OTHER FINDINGS: None. IMPRESSION: Interval insertion right PICC line tip superior vena cava. No pneumothorax appreciated
--- NOTE | 2018-08-20 14:13 | CP.PCM.PN ---
Subjective - Date & Time of Evaluation Date of Evaluation: 08/20/18 Time of Evaluation: 11:35 - Subjective Subjective: Neurology Consultation Follow-Up Note for Dr. Gautam: Mr. Aguayo was seen awake and alert this morning in the ICU. Unable to complete a physical exam as patient refused to participate today. When asked if there was anything new bothering him he stated "no." When asked if he felt well today he stated "yes." Refused to answer any other questions. Patient noted moving his right arm and right leg during this interaction, but not his left arm and left leg. Objective - Vital Signs/Intake and Output Vital Signs (last 24 hours): Temp Pulse Resp BP Pulse Ox 97.7 F 118 H 22 135/64 98 08/20/18 12:00 08/20/18 12:00 08/20/18 12:00 08/20/18 11:01 08/20/18 12:00 Intake and Output: 08/20/18 08/20/18 06:59 18:59 Intake Total 950 200 Output Total 750 200 Balance 200 0 - Medications Medications: Current Medications Enoxaparin Sodium (Lovenox) 100 mg SC Q12 [facility] Last Admin: 08/19/18 21:54 Dose: 100 mg Folic Acid (Folic Acid) 1 mg PO DAILY [facility] Last Admin: 08/19/18 09:26 Dose: 1 mg Ciprofloxacin (Cipro 400mg/200ml Dsw) 400 mg in 200 mls @ 190.476 mls/hr IVPB Q12H [facility]; Protocol Stop: 08/22/18 22:01 Last Admin: 08/20/18 10:04 Dose: 190.476 mls/hr Piperacillin Sod/Tazobactam Sod (Zosyn 3.375 Gm Iv Premix) 3.375 gm in 50 mls @ 100 mls/hr IVPB Q6H [facility]; Protocol Last Admin: 08/20/18 12:25 Dose: 100 mls/hr Vancomycin HCl 1,000 mg/ (Sodium Chloride) 250 mls @ 166.6 mls/hr IVPB Q12H [facility]; Protocol Last Admin: 08/20/18 12:46 Dose: 166.6 mls/hr Lactobacillus Acidophilus (Bacid Acidophilus) 1 cap PO BID [facility] Last Admin: 08/20/18 10:04 Dose: Not Given Metoprolol Tartrate (Lopressor) 5 mg IVP Q6H PRN PRN Reason: Systolic Blood Pressure >160 Multivitamins (Hexavitamin) 1 tab PO DAILY [facility] Last Admin: 08/19/18 09:26 Dose: 1 tab Pantoprazole Sodium (Protonix Ec Tab) 40 mg PO DAILY [facility] Last Admin: 08/19/18 09:26 Dose: 40 mg Polyethylene Glycol (Miralax) 17 gm PO DAILY [facility] Last Admin: 08/19/18 09:25 Dose: 17 gm Rosuvastatin Calcium (Crestor) 20 mg NG HS [facility] Last Admin: 08/18/18 22:06 Dose: 20 mg Senna/Docusate Sodium (Senokot S 50 Mg-8.6 Mg) 1 tab PO BID [facility] Last Admin: 08/20/18 10:05 Dose: Not Given Thiamine HCl (Vitamin B1 Tab) 100 mg PO DAILY [facility] Last Admin: 08/19/18 09:26 Dose: 100 mg - Labs Labs: 08/20/18 06:00 08/20/18 06:00 PT 17.1 SECONDS (9.7-12.2) H 08/20/18 06:00 INR 1.6 08/20/18 06:00 APTT 35 SECONDS (21-34) H 08/20/18 06:00 - Constitutional Appears: Non-toxic, No Acute Distress - Head Exam Additional comments: patient refused - Eye Exam Additional comments: patient refused - ENT Exam Additional comments: patient refused - Neck Exam Additional comments: patient refused - Respiratory Exam Respiratory Exam: NORMAL BREATHING PATTERN - Neurological Exam Neurological Exam: Alert, Awake Additional comments: patient refused; however, during interaction with patient he was noted moving right arm and leg, but not the left arm and leg. - Psychiatric Exam Additional comments: patient is somewhat withdrawn today; appears annoyed when being asked questions and for physical exam. Assessment and Plan (1) Stroke Assessment & Plan: Imagin) CT Head Without Contrast (08/20/18): interval evolution of large right MCA territory hemorrhagic infarction with mass effect and effacement of the right cerebral cortical sulci, right lateral ventricle and 10 mm midline shift from right to left. No significant interval change. 2) See serial CT Head reports for previous results. 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 -He now has a PE; for IVC Filter placement today with vascular surgery. -Originally we planned on starting Lovenox 100 mg SQ Q12, with patient being aware of the risk of re-bleeding. -At risk for re-bleeding of hemorrhagic conversion; Lovenox on hold for now. -Will continue to monitor. -Please notify neurology team for any acute changes in mental status and condition. Status: Acute (2) Pulmonary embolism Assessment & Plan: Imagin) CTA Chest, PE Protocol (08/19/18): extensive pulmonary thromboembolosim. See official CTA report for other findings. -Vascular surgery consulted by primary team; patient is for IVC Filter placement today. -Patient had a hemorrhagic conversion, and is at risk for increased intracerebral hemorrhage with the initiation of anticoagulation. Status: Acute
[2018-08-20] MEDS ORDERED: HEPARIN-NS 5,000 UNITS/500 ML 5,000 UNIT/500 ML BAG IV ONE (14:17)
[2018-08-20] MEDS ORDERED: Iodixanol 320 MG/ML 200 ML BOTTLE IV ONE (14:17)
--- NOTE | 2018-08-20 14:17 | VASCLAB ---
Date of service: 08/19/2018 PROCEDURE: Lower Extremity Venous Duplex Exam. HISTORY: Leg swelling PRIORS: None. TECHNIQUE: Bilateral common femoral, femoral, popliteal and posterior tibial, peroneal and great saphenous veins were evaluated. Flow was assessed with color Doppler, compressibility, assessment of phasic flow and augmentation response. Report prepared by Yayo Ruiz, LARON, RVT FINDINGS: RIGHT: 1. Common Femoral Vein: 1.1. Compressibility - Fully compressible: Thrombus - None : Flow - Phasic: Augmentation -Normal: Reflux - None. 2. Femoral Vein: 2.1. Compressibility - Fully compressible: Thrombus - None : Flow - Phasic: Augmentation -Normal: Reflux - None. 3. Popliteal Vein: 3.1. Compressibility - Fully compressible: Thrombus - None : Flow - Phasic: Augmentation -Normal: Reflux - None. 4. Posterior Tibial Vein: 4.1. Compressibility - Fully compressible: Thrombus - None: Flow - Phasic: Augmentation -Normal: Reflux - None. 5. Peroneal Vein: 5.1. Compressibility - Fully compressible: Thrombus - None: Flow - Phasic: Augmentation -Normal: Reflux - None. 6. Great Saphenous Vein: 6.1. Compressibility - Fully compressible: Thrombus - None: Flow - Phasic: Augmentation - Normal: Reflux - None. LEFT: 1. Common Femoral Vein: 1.1. Compressibility - Partial: Thrombus - Acute: Flow - Absent : Augmentation - None: Reflux - None. 2. Femoral Vein: 2.1. Compressibility - Partial: Thrombus - Acute: Flow - Absent : Augmentation - None: Reflux - None. 3. Popliteal Vein: 3.1. Compressibility - Partial: Thrombus - Acute : Flow - Absent : Augmentation - None: Reflux - None. 4. Posterior Tibial Vein: 4.1. Compressibility - Partial: Thrombus - Acute: Flow - Absent : Augmentation - None: Reflux - None. 5. Peroneal Vein: 5.1. Compressibility - Partial: Thrombus - Acute: Flow - Absent : Augmentation - None: Reflux - None. 6. Great Saphenous Vein: 6.1. Compressibility - Fully compressible: Thrombus - None: Flow - Phasic: Augmentation - Normal: Reflux - None. OTHER FINDINGS: PAULINA Flynn notified about the findings. Impression Right: No evidence of deep or superficial vein thrombosis of the right lower extremity. Normal valve function noted of the right side. Left: Acute thrombosis of the left common femoral, femoral, popliteal, posterior tibial, peroneal and gastrocnemius veins with severe reduction of the venous return.
[2018-08-20] MEDS ORDERED: Lidocaine Hydrochloride 0 ML INJ ONE (14:29)
--- NOTE | 2018-08-20 15:13 | CT ---
Date of service: 08/20/2018 PROCEDURE: CT HEAD WITHOUT CONTRAST. HISTORY: hemorrhagic CVA COMPARISON: 08/19/2018 TECHNIQUE: Axial computed tomography images were obtained through the head/brain without intravenous contrast. Radiation dose: Total exam DLP = 1208.79 mGy-cm. This CT exam was performed using one or more of the following dose reduction techniques: Automated exposure control, adjustment of the mA and/or kV according to patient size, and/or use of iterative reconstruction technique. FINDINGS: HEMORRHAGE: There is continued evolution of large right MCA territory hemorrhagic infarction. BRAIN: There is redemonstration of right MCA territory hemorrhagic infarction with local regional mass effect, effacement of the right cerebral cortical sulci and complete effacement of the right lateral ventricle and 10 mm midline shift from right to left. No evidence of subfalcine or uncal herniation. VENTRICLES: No obstructive hydrocephalus. CALVARIUM: There is no calvarial fracture or extracranial soft tissue swelling. PARANASAL SINUSES: Predominantly clear. MASTOID AIR CELLS: Predominantly clear. OTHER FINDINGS: None. IMPRESSION: Interval evolution of large right MCA territory hemorrhagic infarction with mass effect and effacement of the right cerebral cortical sulci, right lateral ventricle and 10 mm midline shift from right to left. No significant interval change.
--- NOTE | 2018-08-20 15:24 | PCM.SURG1 ---
Surgeon's Initial Post Op Note - Surgeon's Notes Surgeon: Dr. Mansfield Griddle Attendant: Brianna Jordan, PGY2; KAREN [id number] Type of Anesthesia: Local Pre-Operative Diagnosis: DVT, PE Operative Findings: IVC filter in appropriate position and fully deployed confirmed by fluoroscopy Post-Operative Diagnosis: same Operation Performed: percutaneous IVC filter insertion with right femoral vein access Specimen/Specimens Removed: none Estimated Blood Loss: EBL {In ML}: 3 Post-Op Condition: Fair Date of Surgery/Procedure: 08/20/18 Time of Surgery/Procedure: 14:30
--- NOTE | 2018-08-20 16:21 | CP.PCM.PN ---
Subjective - Date & Time of Evaluation Date of Evaluation: 08/20/18 Time of Evaluation: 16:15 - Subjective Subjective: Medical Attending Note: Patient seen and examined at bedside. Patient completed IVC filter earlier. No anticoagulation given latest CT finding. Patient reports he remembers me, able to hi five me with right hand and move right lower extremity unable to move left upper and lower extremity secondary to stroke. Patient has not had a bowel movement, will try suppository. Objective - Vital Signs/Intake and Output Vital Signs (last 24 hours): Temp Pulse Resp BP Pulse Ox 97.7 F 126 H 21 114/80 97 08/20/18 12:00 08/20/18 15:39 08/20/18 15:39 08/20/18 15:39 08/20/18 15:39 Intake and Output: 08/20/18 08/20/18 06:59 18:59 Intake Total 950 600 Output Total 750 200 Balance 200 400 - Medications Medications: Current Medications Folic Acid (Folic Acid) 1 mg PO DAILY [facility] Last Admin: 08/19/18 09:26 Dose: 1 mg Ciprofloxacin (Cipro 400mg/200ml Dsw) 400 mg in 200 mls @ 190.476 mls/hr IVPB Q12H [facility]; Protocol Stop: 08/22/18 22:01 Last Admin: 08/20/18 10:04 Dose: 190.476 mls/hr Piperacillin Sod/Tazobactam Sod (Zosyn 3.375 Gm Iv Premix) 3.375 gm in 50 mls @ 100 mls/hr IVPB Q6H [facility]; Protocol Last Admin: 08/20/18 12:25 Dose: 100 mls/hr Vancomycin HCl 1,000 mg/ (Sodium Chloride) 250 mls @ 166.6 mls/hr IVPB Q12H [facility]; Protocol Last Admin: 08/20/18 12:46 Dose: 166.6 mls/hr Lactobacillus Acidophilus (Bacid Acidophilus) 1 cap PO BID [facility] Last Admin: 08/20/18 10:04 Dose: Not Given Metoprolol Tartrate (Lopressor) 5 mg IVP Q6H PRN PRN Reason: Systolic Blood Pressure >160 Multivitamins (Hexavitamin) 1 tab PO DAILY [facility] Last Admin: 08/19/18 09:26 Dose: 1 tab Pantoprazole Sodium (Protonix Ec Tab) 40 mg PO DAILY [facility] Last Admin: 08/19/18 09:26 Dose: 40 mg Polyethylene Glycol (Miralax) 17 gm PO DAILY [facility] Last Admin: 08/19/18 09:25 Dose: 17 gm Rosuvastatin Calcium (Crestor) 20 mg NG HS [facility] Last Admin: 08/18/18 22:06 Dose: 20 mg Senna/Docusate Sodium (Senokot S 50 Mg-8.6 Mg) 1 tab PO BID [facility] Last Admin: 08/20/18 10:05 Dose: Not Given Thiamine HCl (Vitamin B1 Tab) 100 mg PO DAILY [facility] Last Admin: 08/19/18 09:26 Dose: 100 mg - Labs Labs: 08/20/18 06:00 08/20/18 06:00 PT 17.1 SECONDS (9.7-12.2) H 08/20/18 06:00 INR 1.6 08/20/18 06:00 APTT 35 SECONDS (21-34) H 08/20/18 06:00 - Constitutional Appears: Non-toxic, No Acute Distress - Head Exam Head Exam: NORMAL INSPECTION - Eye Exam Eye Exam: EOMI - ENT Exam ENT Exam: Mucous Membranes Dry - Respiratory Exam Respiratory Exam: Clear to Ausculation Bilateral - Cardiovascular Exam Cardiovascular Exam: Tachycardia, +S1, +S2 - GI/Abdominal Exam GI & Abdominal Exam: Distended, Soft, Normal Bowel Sounds. absent: Firm, Guarding, Rigid, Tenderness, Rebound - Extremities Exam Extremities Exam: Pedal Edema (left lower extremity). absent: Tenderness - Neurological Exam Neurological Exam: Alert, Awake, Oriented x3 Neuro motor strength exam: Left Upper Extremity: 0, Right Upper Extremity: 5, Left Lower Extremity: 0, Right Lower Extremity: 5 - Psychiatric Exam Psychiatric exam: Normal Affect, Normal Mood - Skin Skin Exam: Dry, Erythema, Normal Color, Warm Assessment and Plan (1) Arterial ischemic stroke, MCA (middle cerebral artery), right, acute Status: Acute (2) ETOH abuse Status: Chronic (3) Impaired glucose tolerance Status: Acute (4) Lipid disorder Status: Acute (5) Leukocytosis Status: Acute (6) Prophylactic measure Status: Acute Attending/Attestation - Attestation I have personally seen and examined this patient.: Yes I have fully participated in the care of the patient.: Yes I have reviewed all pertinent clinical information, including history, physical exam and plan: Yes Notes (Text): 1) Pulmonary embolism and Lower deep vein thrombosis * CT Angio (08/19) showed for extensive pulmonary thromboembolism * Venous doppler: extensive left lower extremity DVT (affected from stroke) * Patient had hemorrhagic conversion from ischemic MCA stroke * we have ordered for protein c/protein s, antiphospholid, factor leiden, anticardiolipin, lupus workup * patient not eligible for TPA (due to hemorrhagic stroke); patient is 10 days out from stroke. * Vascular surgery consulted for IVC filter * completed 08/20/18 * Discussed with ICU today, no anticoagulation in light of latest CT finding. * No scd over the left lower extremity secondary to DVT (2) Hemmoragic conversion of a right side MCA stroke Assessment & Plan: * Neurosurgery on board-->no intervention * neurology on board-->not candidate for tpa/nor thrombectomy per neuro notes * Seizure precautions * aspiration precautions * hold statin secondary to LFTs * aspirin held due to hemorrhagic conversion * Anticoagulation held given latest CT finding Imaging: * CT Head (08/11/18): large on MCA branch territory infarct involving right basal ganglia and right posterior frotnoparietal region extending to vertex with mass effect with overlying sulcal effacement, compression of the right lateral ventricle and shift of the septum pellucidum from right to left lateral ventricle suggesting mild early compressive effects at the level of left foramen of Garza. No definitive evidence of acute intracranial hemorrhage. * CT head and neck: no evidence of occlusion, dissection or significatn stenosis of the cervical caroitd or vertebral circulation. mild atheroscelroritc plauqe changes seen both cartoid siphons. no evidence of large aneurysm nor vascular malformation. * CT head (08/12/18); hemorrhage conversion of known large right MCA territoty infarction with local regional mass effect, diffuse cerenral edema, and 11mm midline from right to left. interval development of right SOTO territory infarction involving the paramedian frontal lobe. * CT Head (08/15/18): relatively large right MCA territory infarct again with questionable hemorrhage conversion changes. Mild mass effect with overlying sulcal effacement and compression of the right lateral ventricle lower shift of the spetum pellucidum from left to right by approximately 11mm. Questionable hemorrhagic conversion * Brain MRI (08/15/18): Relatively large subacute right MCA territory infarct with areas of hemorrhage in the basal ganglkia and right posterio frontoparietal watershed zone as described. persistent mass effect with compression of the right lateral ventricle and right to left midline shift with septum pellucidium approximately 11mm to left of midline. Mild on dilatation left lateral ventricle due to mild compressive effects at level of left foramen of monro. * CT head (08/20/18): interval evolution of large right MCA territory hemorrhagic infarction with mass effect and effacement of the right cerebral cortical sulci, right lateral ventricle and 10 midline shift from right to left. no significant interval change. Status: Acute (2) ETOH abuse Assessment & Plan: * Out of window for withdrawal * Thiamine 100mg PO daily * Folic acid 1 mg PO daily * MVI 1 tab PO daily Status: Chronic (3) Impaired glucose tolerance Assessment & Plan: * will need monitoring of his sugars * repeat a1c in one year to prevent overt diabetes Status: Acute (4) Lipid disorder Assessment & Plan: * elevated cholestrol: 271 * LDL: 184 * HDL: 59 * T * crestor 20mg PO HS (5) Leukocytosis Assessment & Plan: * Blood culture (08/19/18): no growth after 24 hours X2 * Urine culture (08/19/18): pending * Procalcitonin: low * Ciprofloxacin 400mg IVQ12H (started 08/18/18) * Bacid 1 tab PO BID * Prior Blood culture (08/12/18): no growth after 5 days (6) Tachycardia Assessment & Plan: * patient has extensive PE noted on CT angio and Left lower DVT * repeat echo given right heart strain noted on Ct angio * Echo bubble (08/13/18): limited; negative study; no evidence inter-cavitary shunt. * Echo (08/14/18): normal LV systolic function, normal chamber size, trace to mild TR (7) Transaminitis Assessment & Plan: * d/c tylenol secondary to transaminitis * Abdominal US (08/19/18): no significant or acute findings to account for/related to clinical presentation * hepatitis panel: negative * hold statin given elevated in LFTs (8) Constipation Assessment & Plan: * Docusate sodium/senna 1 tab PO BID * Start Miralax daily * Order for Ducolax (9) Hypernatremia Assessment & Plan: * normalized (10) Prophylactic measure Assessment & Plan: * chemical anticoagulation contraindicated in light of hemorrhagic conversion of MCA stroke * Correct phone number of son: Yayo at [phone] * PT/OT eval * Aspiration precautions * Seizure precautions
[2018-08-20] MEDS: Multiple Vitamins Tab PO SCH (16:31)
[2018-08-20] MEDS: Pantoprazole 40 mg EC Tab PO SCH (16:31)
[2018-08-20] MEDS: POLYETHYLENE GLYCOL 3350 17 GM/Dose PACKET PO SCH (16:32)
--- NOTE | 2018-08-20 17:05 | RAD ---
PROCEDURE: HISTORY: As Above COMPARISON: None TECHNIQUE: Total fluoroscopic time utilized during the procedure: 71.3 seconds. Total dose 26.19 mGy FINDINGS: Submitted images from the current procedure: 4 images with anatomy present please refer to the physician's notes performing the procedure. IMPRESSION: Less than 1 hour fluoroscopic time utilized during performance of the procedure
--- NOTE | 2018-08-20 18:25 | PN ---
DATE: 08/20/2018 SUBJECTIVE: The patient was found to have DVT in the left lower extremity. Chest CT angio performed yesterday revealed extensive pulmonary thromboembolism, possible right ventricular strain. The patient is scheduled for IVC filter placement. The patient denies any chest pain. PHYSICAL EXAMINATION VITAL SIGNS: Blood pressure 135/64, heart rate 128, temperature 98.5. HEENT: Pale conjunctivae. CHEST: Clear. HEART: S1 and S2 regular. EXTREMITIES: Trace left leg edema. LABORATORY DATA: Today's SMA-7 is within normal limit except for glucose 151 and BUN of 25. Today's hemoglobin and hematocrit are 13.7 and 40.9, white count 16.6, platelet count 151,000. ASSESSMENT: 1. Deep venous thrombosis and bilateral pulmonary emboli. 2. Acute right mid cerebral artery territory infarct with hemorrhagic conversion as well as hemorrhages in the basal ganglia and right posterior frontoparietal watershed zone with mass effect and midline shift. RECOMMENDATIONS: Case was discussed with the hospitalist, Dr. Norton, and the patient will undergo IVC filter placement and is scheduled for repeat echocardiographic study to rule out right ventricular strain pattern. My own review of that study revealed hyperdynamic left ventricle, no evidence of right ventricular dilatation or systolic impairment. Jacob De Jesus MD
--- NOTE | 2018-08-21 02:12 | OP ---
PROCEDURE DATE: 08/20/2018 PREOPERATIVE DIAGNOSES: History of gastrointestinal bleeding, history of deep vein thrombosis, and pulmonary embolism. PROCEDURE CARRIED OUT: Placement of Option ELITE filter via right femoral vein with C-arm fluoroscopy, ultrasound-guided puncture, and micropuncture technique. SURGEON: Joshua Mansfield Jr., MD HERBICIDE SPRAYER: Brianna Jordan DO ANESTHESIOLOGIST: Robbin INDICATION: The patient is a 52-year-old man with multiple medical problems, requires a filter because of inability to anticoagulate. OPERATIVE FINDINGS: Filter was inserted uneventfully via the right femoral vein. DESCRIPTION OF PROCEDURE: The patient was given local anesthesia. Using ultrasound-guidance and micropuncture technique, the right femoral vein was punctured. Under fluoroscopic control, the guidewire was advanced centrally. A sheath dilator was passed over this, and the catheter was positioned in the appropriate location. The filter was then released. The filter was deployed in upright position in the vena cava. Subsequently, the patient was then turned. After confirming this, the procedure was terminated. BLOOD LOSS FOR THE PROCEDURE: 10 mL. OPERATION CARRIED OUT: Placement of Option ELITE filter via the right femoral vein with C-arm fluoroscopy, ultrasound-guided puncture and micropuncture technique. Ultrasound images of the groin demonstrated the vein was approximately 14 mm in diameter with normal compressibility and no intraluminal thrombosis. Joshua Mansfield Jr., MD RUDDY
[2018-08-21] MEDS: Piperacill/Tazo 3.375gm in Dex 3.375 GM/50 ML BAG IVPB SCH ×2 (06:13)
[2018-08-21 06:28] LABS: BASO # 0.1 K/uL (0.0-0.2); BASO % 0.3 % (0.0-2.0); EOS # 0.5 K/uL (0.0-0.7); EOS % 2.6 % (0.0-4.0); HEMOGLOBIN 13.5 g/dL (12.0-18.0); LYMPH # 0.8 K/uL (1.0-4.3); MEAN CELL VOLUME 87.1 fL (80.0-94.0); MEAN CORPUSCULAR HEMOGLOBIN 28.6 pg (27.0-31.0); MEAN CORPUSCULAR HGB CONC 32.9 g/dL (33.0-37.0); MEAN PLATELET VOLUME 10.8 fL (7.2-11.7); MONO # 1.1 K/uL (0.0-0.8); MONO % 5.6 % (0.0-10.0); NEUT # 17.1 K/uL (1.8-7.0); NEUT % 87.5 % (50.0-75.0); PLATELET COUNT 168 K/uL (130-400); RBC 4.72 Mil/uL (4.40-5.90); RED CELL DISTRIBUTION WIDTH 13.2 % (11.5-14.5); WHITE BLOOD COUNT 19.5 K/uL (4.8-10.8)
[2018-08-21 06:32] LABS: ALB/GLOB RATIO 0.8 (1.0-2.1); ALBUMIN 3.4 g/dL (3.5-5.0); ALT/SGPT 303 U/L (21-72); AST/SGOT 160 U/L (17-59); BLOOD UREA NITROGEN 29 mg/dL (9-20); CALCIUM 8.6 mg/dl (8.6-10.4); GFR NON-AFRICAN AMERICAN > 60
--- NOTE | 2018-08-21 07:24 | CP.CCUPN ---
<Jcaob Gao - Last Filed: 08/21/18 17:48> CCU Subjective - Physician Review Subjective (Free Text): 08/21/18 10:44 PGY-1 Critical Care Progress Note for Dr. Weir Patient seen and examined at bedside this AM s/p IVC filter. Off anticoagulation due to hemorrhagic conversion of MCA infarct. No acute overnight events reported. Moves his RUE and RLE with ease. Complains of itchy rash over lower back that started last night, skin appears dry. Critical Care Time Spent (in minutes): 35 CCU Objective - Vital Signs / Intake & Output Vital Signs (Last 4 hours): Vital Signs Temp Pulse Resp BP Pulse Ox 08/21/18 07:00 123 H 21 93 L 08/21/18 06:37 125 H 25 H 111/72 96 08/21/18 06:03 131 H 28 H 95 08/21/18 05:00 128 H 20 96 08/21/18 04:36 133 H 26 H 127/92 H 94 L 08/21/18 04:00 99.5 F 131 H 24 97 08/21/18 03:36 129 H 24 108/81 96 Intake and Output (Last 8hrs): Intake & Output 08/20/18 08/21/18 08/21/18 22:59 06:59 14:59 Intake Total 670 350 0 Output Total 300 555 Balance 370 -205 0 Weight 214 lb 1.5 oz Intake: Intake, IV Amount 250 350 Left Wrist 250 350 Oral 420 0 0 Output: Urine 300 555 Urine, Voided 300 555 Other: # Voids Urine, Voided 1 # Bowel Movements 1 0 0 - Physical Exam Head: Positive for: Atraumatic, Normocephalic Pupils: Positive for: PERRL Extroacular Muscles: Positive for: EOMI Conjunctiva: Positive for: Normal Mouth: Positive for: Dry Neck: Positive for: Normal Range of Motion Respiratory/Chest: Positive for: Good Air Exchange. Negative for: Respiratory Distress, Accessory Muscle Use, Wheezes, Rales, Retracting, Rhonchi Cardiovascular: Positive for: Normal S1, S2, Tachycardic Abdomen: Positive for: Distention, Normal Bowel Sounds. Negative for: Tenderness, Peritoneal Signs, Rebound, Guarding Upper Extremity: Positive for: Normal Inspection, Normal ROM, NORMAL PULSES, Neurovascularly Intact, Capillary Refill < 2s. Negative for: Cyanosis, Edema Lower Extremity: Positive for: Normal Inspection, NORMAL PULSES, Neurovascularly Intact, Capillary Refill < 2 s. Negative for: Edema, CALF TENDERNESS Neurological: Positive for: Other (Motor LUE, LLE: 0; Motor RUE, RLE: 5) Skin: Positive for: Warm, Dry, Rashes, Erythematous Psychiatric: Positive for: Alert, Oriented x 3 - Medications Active Medications: Active Medications Generic Name Dose Route Start Last Admin Trade Name Freq PRN Reason Stop Dose Admin Folic Acid 1 mg 08/19/18 10:00 08/20/18 16:32 Folic Acid PO 1 mg DAILY MARCO ANTONIO Administration Ciprofloxacin 400 mg in 200 mls @ 190.476 mls/hr 08/18/18 22:00 08/20/18 21:45 Cipro 400mg/200ml Dsw IVPB 08/22/18 22:01 190.476 mls/hr Q12H MARCO ANTONIO Administration Protocol Piperacillin Sod/Tazobactam Sod 3.375 gm in 50 mls @ 100 mls/hr 08/19/18 12:00 08/21/18 06:13 Zosyn 3.375 Gm Iv Premix IVPB 100 mls/hr Q6H MARCO ANTONIO Administration Protocol Vancomycin HCl 1,000 mg/ 250 mls @ 166.6 mls/hr 08/19/18 12:00 08/21/18 00:00 Sodium Chloride IVPB 166.6 mls/hr Q12H MARCO ANTONIO Administration Protocol Lactobacillus Acidophilus 1 cap 08/19/18 10:00 08/20/18 18:08 Bacid Acidophilus PO 1 cap BID MARCO ANTONIO Administration Metoprolol Tartrate 5 mg 08/19/18 17:41 Lopressor IVP Q6H PRN Systolic Blood Pressure >160 Multivitamins 1 tab 08/19/18 10:00 08/20/18 16:31 Hexavitamin PO 1 tab DAILY MARCO ANTONIO Administration Pantoprazole Sodium 40 mg 08/16/18 10:00 08/20/18 16:31 Protonix Ec Tab PO 40 mg DAILY MARCO ANTONIO Administration Polyethylene Glycol 17 gm 08/19/18 10:00 08/20/18 16:32 Miralax PO 17 gm DAILY MARCO ANTONIO Administration Rosuvastatin Calcium 20 mg 08/11/18 22:00 08/18/18 22:06 Crestor NG 20 mg HS MARCO ANTONIO Administration Senna/Docusate Sodium 1 tab 08/13/18 12:00 08/20/18 18:17 Senokot S 50 Mg-8.6 Mg PO Not Given BID MARCO ANTONIO Thiamine HCl 100 mg 08/19/18 10:00 08/20/18 16:31 Vitamin B1 Tab PO 100 mg DAILY MARCO ANTONIO Administration - Patient Studies Lab Studies: Microbiology Studies 08/19/18 19:56 MRSA Culture - Final Naris MRSA NOT DETECTED 08/19/18 14:08 Urine Culture - Final Urine,Catheterized No Growth (<1,000 CFU/ML) 08/19/18 11:30 Blood Culture - Preliminary Blood NO GROWTH AFTER 24 HOURS 08/19/18 11:30 Blood Culture - Preliminary Blood NO GROWTH AFTER 24 HOURS Lab Studies 08/21/18 08/21/18 08/20/18 Range/Units 05:53 05:52 21:13 WBC 19.5 H (4.8-10.8) K/uL RBC 4.72 (4.40-5.90) Mil/uL Hgb 13.5 (12.0-18.0) g/dL Hct 41.1 (35.0-51.0) % MCV 87.1 (80.0-94.0) fL MCH 28.6 (27.0-31.0) pg MCHC 32.9 L (33.0-37.0) g/dL RDW 13.2 (11.5-14.5) % Plt Count 168 (130-400) K/uL MPV 10.8 (7.2-11.7) fL Neut % (Auto) 87.5 H (50.0-75.0) % Lymph % (Auto) 4.0 L (20.0-40.0) % [place] % (Auto) 5.6 (0.0-10.0) % Eos % (Auto) 2.6 (0.0-4.0) % Baso % (Auto) 0.3 (0.0-2.0) % Neut # (Auto) 17.1 H (1.8-7.0) K/uL Lymph # (Auto) 0.8 L (1.0-4.3) K/uL [place] # (Auto) 1.1 H (0.0-0.8) K/uL Eos # (Auto) 0.5 (0.0-0.7) K/uL Baso # (Auto) 0.1 (0.0-0.2) K/uL Neutrophils % (Manual) (50-75) % Band Neutrophils % (0-2) % Lymphocytes % (Manual) (20-40) % Monocytes % (Manual) (0-10) % Eosinophils % (Manual) (0-4) % Platelet Estimate (NORMAL) RBC Morphology PT (9.7-12.2) SECONDS INR APTT (21-34) SECONDS Sodium 142 (132-148) mmol/L Potassium 4.2 (3.6-5.2) mmol/L Chloride 105 (98-107) mmol/L Carbon Dioxide 26 (22-30) mmol/L Anion Gap 15 (10-20) BUN 29 H (9-20) mg/dL Creatinine 1.0 (0.8-1.5) mg/dL Est GFR ( Amer) > 60 Est GFR (Non-Af Amer) > 60 POC Glucose (mg/dL) 133 H (65-110) mg/dL Random Glucose 144 H (75-110) mg/dL Calcium 8.6 (8.6-10.4) mg/dl Phosphorus 4.0 (2.5-4.5) mg/dL Magnesium 2.8 H (1.6-2.3) mg/dL Total Bilirubin 1.0 (0.2-1.3) mg/dL AST 160 H D (17-59) U/L ALT 303 H D (21-72) U/L Alkaline Phosphatase 99 (38-126) U/L Total Protein 7.4 (6.3-8.3) g/dL Albumin 3.4 L (3.5-5.0) g/dL Globulin 4.0 H (2.2-3.9) gm/dL Albumin/Globulin Ratio 0.8 L (1.0-2.1) 08/20/18 08/20/18 08/20/18 Range/Units 16:18 12:29 07:40 WBC (4.8-10.8) K/uL RBC (4.40-5.90) Mil/uL Hgb (12.0-18.0) g/dL Hct (35.0-51.0) % MCV (80.0-94.0) fL MCH (27.0-31.0) pg MCHC (33.0-37.0) g/dL RDW (11.5-14.5) % Plt Count (130-400) K/uL MPV (7.2-11.7) fL Neut % (Auto) (50.0-75.0) % Lymph % (Auto) (20.0-40.0) % [place] % (Auto) (0.0-10.0) % Eos % (Auto) (0.0-4.0) % Baso % (Auto) (0.0-2.0) % Neut # (Auto) (1.8-7.0) K/uL Lymph # (Auto) (1.0-4.3) K/uL [place] # (Auto) (0.0-0.8) K/uL Eos # (Auto) (0.0-0.7) K/uL Baso # (Auto) (0.0-0.2) K/uL Neutrophils % (Manual) (50-75) % Band Neutrophils % (0-2) % Lymphocytes % (Manual) (20-40) % Monocytes % (Manual) (0-10) % Eosinophils % (Manual) (0-4) % Platelet Estimate (NORMAL) RBC Morphology PT (9.7-12.2) SECONDS INR APTT (21-34) SECONDS Sodium (132-148) mmol/L Potassium (3.6-5.2) mmol/L Chloride (98-107) mmol/L Carbon Dioxide (22-30) mmol/L Anion Gap (10-20) BUN (9-20) mg/dL Creatinine (0.8-1.5) mg/dL Est GFR ( Amer) Est GFR (Non-Af Amer) POC Glucose (mg/dL) 117 H 148 H 146 H (65-110) mg/dL Random Glucose (75-110) mg/dL Calcium (8.6-10.4) mg/dl Phosphorus (2.5-4.5) mg/dL Magnesium (1.6-2.3) mg/dL Total Bilirubin (0.2-1.3) mg/dL AST (17-59) U/L ALT (21-72) U/L Alkaline Phosphatase (38-126) U/L Total Protein (6.3-8.3) g/dL Albumin (3.5-5.0) g/dL Globulin (2.2-3.9) gm/dL Albumin/Globulin Ratio (1.0-2.1) 08/20/18 08/20/18 08/20/18 Range/Units 06:00 06:00 06:00 WBC 16.6 H (4.8-10.8) K/uL RBC 4.71 (4.40-5.90) Mil/uL Hgb 13.7 (12.0-18.0) g/dL Hct 40.9 (35.0-51.0) % MCV 86.9 (80.0-94.0) fL MCH 29.0 (27.0-31.0) pg MCHC 33.4 (33.0-37.0) g/dL RDW 13.2 (11.5-14.5) % Plt Count 151 (130-400) K/uL MPV 10.8 (7.2-11.7) fL Neut % (Auto) 81.5 H (50.0-75.0) % Lymph % (Auto) 7.5 L (20.0-40.0) % [place] % (Auto) 7.8 (0.0-10.0) % Eos % (Auto) 2.6 (0.0-4.0) % Baso % (Auto) 0.6 (0.0-2.0) % Neut # (Auto) 81.5 H (1.8-7.0) K/uL Lymph # (Auto) 7.5 H (1.0-4.3) K/uL [place] # (Auto) 7.8 H (0.0-0.8) K/uL Eos # (Auto) 2.6 H (0.0-0.7) K/uL Baso # (Auto) 0.6 H (0.0-0.2) K/uL Neutrophils % (Manual) 84 H (50-75) % Band Neutrophils % 1 (0-2) % Lymphocytes % (Manual) 10 L (20-40) % Monocytes % (Manual) 4 (0-10) % Eosinophils % (Manual) 1 (0-4) % Platelet Estimate Normal (NORMAL) RBC Morphology Normal PT 17.1 H (9.7-12.2) SECONDS INR 1.6 APTT 35 H (21-34) SECONDS Sodium 141 (132-148) mmol/L Potassium 4.4 (3.6-5.2) mmol/L Chloride 106 (98-107) mmol/L Carbon Dioxide 25 (22-30) mmol/L Anion Gap 13 (10-20) BUN 25 H (9-20) mg/dL Creatinine 0.9 (0.8-1.5) mg/dL Est GFR ( Amer) > 60 Est GFR (Non-Af Amer) > 60 POC Glucose (mg/dL) (65-110) mg/dL Random Glucose 151 H (75-110) mg/dL Calcium 9.0 (8.6-10.4) mg/dl Phosphorus 3.9 (2.5-4.5) mg/dL Magnesium 2.5 H (1.6-2.3) mg/dL Total Bilirubin 0.8 (0.2-1.3) mg/dL AST 302 H D (17-59) U/L ALT 456 H D (21-72) U/L Alkaline Phosphatase 114 (38-126) U/L Total Protein 7.6 (6.3-8.3) g/dL Albumin 3.7 (3.5-5.0) g/dL Globulin 3.9 (2.2-3.9) gm/dL Albumin/Globulin Ratio 1.0 (1.0-2.1) 08/19/18 08/19/18 08/19/18 Range/Units 21:22 16:12 11:03 WBC (4.8-10.8) K/uL RBC (4.40-5.90) Mil/uL Hgb (12.0-18.0) g/dL Hct (35.0-51.0) % MCV (80.0-94.0) fL MCH (27.0-31.0) pg MCHC (33.0-37.0) g/dL RDW (11.5-14.5) % Plt Count (130-400) K/uL MPV (7.2-11.7) fL Neut % (Auto) (50.0-75.0) % Lymph % (Auto) (20.0-40.0) % [place] % (Auto) (0.0-10.0) % Eos % (Auto) (0.0-4.0) % Baso % (Auto) (0.0-2.0) % Neut # (Auto) (1.8-7.0) K/uL Lymph # (Auto) (1.0-4.3) K/uL [place] # (Auto) (0.0-0.8) K/uL Eos # (Auto) (0.0-0.7) K/uL Baso # (Auto) (0.0-0.2) K/uL Neutrophils % (Manual) (50-75) % Band Neutrophils % (0-2) % Lymphocytes % (Manual) (20-40) % Monocytes % (Manual) (0-10) % Eosinophils % (Manual) (0-4) % Platelet Estimate (NORMAL) RBC Morphology PT (9.7-12.2) SECONDS INR APTT (21-34) SECONDS Sodium (132-148) mmol/L Potassium (3.6-5.2) mmol/L Chloride (98-107) mmol/L Carbon Dioxide (22-30) mmol/L Anion Gap (10-20) BUN (9-20) mg/dL Creatinine (0.8-1.5) mg/dL Est GFR ( Amer) Est GFR (Non-Af Amer) POC Glucose (mg/dL) 164 H 171 H 279 H (65-110) mg/dL Random Glucose (75-110) mg/dL Calcium (8.6-10.4) mg/dl Phosphorus (2.5-4.5) mg/dL Magnesium (1.6-2.3) mg/dL Total Bilirubin (0.2-1.3) mg/dL AST (17-59) U/L ALT (21-72) U/L Alkaline Phosphatase (38-126) U/L Total Protein (6.3-8.3) g/dL Albumin (3.5-5.0) g/dL Globulin (2.2-3.9) gm/dL Albumin/Globulin Ratio (1.0-2.1) 08/19/18 08/19/18 Range/Units 07:07 00:02 WBC (4.8-10.8) K/uL RBC (4.40-5.90) Mil/uL Hgb (12.0-18.0) g/dL Hct (35.0-51.0) % MCV (80.0-94.0) fL MCH (27.0-31.0) pg MCHC (33.0-37.0) g/dL RDW (11.5-14.5) % Plt Count (130-400) K/uL MPV (7.2-11.7) fL Neut % (Auto) (50.0-75.0) % Lymph % (Auto) (20.0-40.0) % [place] % (Auto) (0.0-10.0) % Eos % (Auto) (0.0-4.0) % Baso % (Auto) (0.0-2.0) % Neut # (Auto) (1.8-7.0) K/uL Lymph # (Auto) (1.0-4.3) K/uL [place] # (Auto) (0.0-0.8) K/uL Eos # (Auto) (0.0-0.7) K/uL Baso # (Auto) (0.0-0.2) K/uL Neutrophils % (Manual) (50-75) % Band Neutrophils % (0-2) % Lymphocytes % (Manual) (20-40) % Monocytes % (Manual) (0-10) % Eosinophils % (Manual) (0-4) % Platelet Estimate (NORMAL) RBC Morphology PT (9.7-12.2) SECONDS INR APTT (21-34) SECONDS Sodium (132-148) mmol/L Potassium (3.6-5.2) mmol/L Chloride (98-107) mmol/L Carbon Dioxide (22-30) mmol/L Anion Gap (10-20) BUN (9-20) mg/dL Creatinine (0.8-1.5) mg/dL Est GFR ( Amer) Est GFR (Non-Af Amer) POC Glucose (mg/dL) 127 H 183 H (65-110) mg/dL Random Glucose (75-110) mg/dL Calcium (8.6-10.4) mg/dl Phosphorus (2.5-4.5) mg/dL Magnesium (1.6-2.3) mg/dL Total Bilirubin (0.2-1.3) mg/dL AST (17-59) U/L ALT (21-72) U/L Alkaline Phosphatase (38-126) U/L Total Protein (6.3-8.3) g/dL Albumin (3.5-5.0) g/dL Globulin (2.2-3.9) gm/dL Albumin/Globulin Ratio (1.0-2.1) Laboratory Results - last 24 hr 08/19/18 08/19/18 08/19/18 00:02 07:07 11:03 WBC RBC Hgb Hct MCV MCH MCHC RDW Plt Count MPV Neut % (Auto) Lymph % (Auto) [place] % (Auto) Eos % (Auto) Baso % (Auto) Neut # (Auto) Lymph # (Auto) [place] # (Auto) Eos # (Auto) Baso # (Auto) Neutrophils % (Manual) Band Neutrophils % Lymphocytes % (Manual) Monocytes % (Manual) Eosinophils % (Manual) Platelet Estimate RBC Morphology PT INR APTT Sodium Potassium Chloride Carbon Dioxide Anion Gap BUN Creatinine Est GFR ( Amer) Est GFR (Non-Af Amer) POC Glucose (mg/dL) 183 H 127 H 279 H Random Glucose Calcium Phosphorus Magnesium Total Bilirubin AST ALT Alkaline Phosphatase Total Protein Albumin Globulin Albumin/Globulin Ratio 08/19/18 08/19/18 08/20/18 16:12 21:22 06:00 WBC RBC Hgb Hct MCV MCH MCHC RDW Plt Count MPV Neut % (Auto) Lymph % (Auto) [place] % (Auto) Eos % (Auto) Baso % (Auto) Neut # (Auto) Lymph # (Auto) [place] # (Auto) Eos # (Auto) Baso # (Auto) Neutrophils % (Manual) Band Neutrophils % Lymphocytes % (Manual) Monocytes % (Manual) Eosinophils % (Manual) Platelet Estimate RBC Morphology PT INR APTT Sodium 141 Potassium 4.4 Chloride 106 Carbon Dioxide 25 Anion Gap 13 BUN 25 H Creatinine 0.9 Est GFR ( Amer) > 60 Est GFR (Non-Af Amer) > 60 POC Glucose (mg/dL) 171 H 164 H Random Glucose 151 H Calcium 9.0 Phosphorus 3.9 Magnesium 2.5 H Total Bilirubin 0.8 AST 302 H D ALT 456 H D Alkaline Phosphatase 114 Total Protein 7.6 Albumin 3.7 Globulin 3.9 Albumin/Globulin Ratio 1.0 08/20/18 08/20/18 08/20/18 06:00 06:00 07:40 WBC 16.6 H RBC 4.71 Hgb 13.7 Hct 40.9 MCV 86.9 MCH 29.0 MCHC 33.4 RDW 13.2 Plt Count 151 MPV 10.8 Neut % (Auto) 81.5 H Lymph % (Auto) 7.5 L [place] % (Auto) 7.8 Eos % (Auto) 2.6 Baso % (Auto) 0.6 Neut # (Auto) 81.5 H Lymph # (Auto) 7.5 H [place] # (Auto) 7.8 H Eos # (Auto) 2.6 H Baso # (Auto) 0.6 H Neutrophils % (Manual) 84 H Band Neutrophils % 1 Lymphocytes % (Manual) 10 L Monocytes % (Manual) 4 Eosinophils % (Manual) 1 Platelet Estimate Normal RBC Morphology Normal PT 17.1 H INR 1.6 APTT 35 H Sodium Potassium Chloride Carbon Dioxide Anion Gap BUN Creatinine Est GFR ( Amer) Est GFR (Non-Af Amer) POC Glucose (mg/dL) 146 H Random Glucose Calcium Phosphorus Magnesium Total Bilirubin AST ALT Alkaline Phosphatase Total Protein Albumin Globulin Albumin/Globulin Ratio 08/20/18 08/20/18 08/20/18 12:29 16:18 21:13 WBC RBC Hgb Hct MCV MCH MCHC RDW Plt Count MPV Neut % (Auto) Lymph % (Auto) [place] % (Auto) Eos % (Auto) Baso % (Auto) Neut # (Auto) Lymph # (Auto) [place] # (Auto) Eos # (Auto) Baso # (Auto) Neutrophils % (Manual) Band Neutrophils % Lymphocytes % (Manual) Monocytes % (Manual) Eosinophils % (Manual) Platelet Estimate RBC Morphology PT INR APTT Sodium Potassium Chloride Carbon Dioxide Anion Gap BUN Creatinine Est GFR ( Amer) Est GFR (Non-Af Amer) POC Glucose (mg/dL) 148 H 117 H 133 H Random Glucose Calcium Phosphorus Magnesium Total Bilirubin AST ALT Alkaline Phosphatase Total Protein Albumin Globulin Albumin/Globulin Ratio 08/21/18 08/21/18 05:52 05:53 WBC 19.5 H RBC 4.72 Hgb 13.5 Hct 41.1 MCV 87.1 MCH 28.6 MCHC 32.9 L RDW 13.2 Plt Count 168 MPV 10.8 Neut % (Auto) 87.5 H Lymph % (Auto) 4.0 L [place] % (Auto) 5.6 Eos % (Auto) 2.6 Baso % (Auto) 0.3 Neut # (Auto) 17.1 H Lymph # (Auto) 0.8 L [place] # (Auto) 1.1 H Eos # (Auto) 0.5 Baso # (Auto) 0.1 Neutrophils % (Manual) Band Neutrophils % Lymphocytes % (Manual) Monocytes % (Manual) Eosinophils % (Manual) Platelet Estimate RBC Morphology PT INR APTT Sodium 142 Potassium 4.2 Chloride 105 Carbon Dioxide 26 Anion Gap 15 BUN 29 H Creatinine 1.0 Est GFR ( Amer) > 60 Est GFR (Non-Af Amer) > 60 POC Glucose (mg/dL) Random Glucose 144 H Calcium 8.6 Phosphorus 4.0 Magnesium 2.8 H Total Bilirubin 1.0 AST 160 H D ALT 303 H D Alkaline Phosphatase 99 Total Protein 7.4 Albumin 3.4 L Globulin 4.0 H Albumin/Globulin Ratio 0.8 L Fingerstick Blood Sugar Results: 133 Review of Systems - Review of Systems All systems: reviewed and no additional remarkable complaints except Review of Systems: as per HPI Critical Care Progress Note - Nutrition Nutrition: Nutrition Category Date Time Status Dysphagia/Modified Consistency Diet [DIET] Diets 08/20/18 Dinner Active Assessment/Plan - Assessment and Plan (Free Text) Assessment: 52 yo M with no known past medical history readmitted to ICU for R heart strain and extensive PE. 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 Patient is s/p IVC filter procedure, off anticoagulation due to recent CT findings. Plan: Neuro: - Acute right MCA infarct with 9.6mm midline shift and hemorrhagic conversion - Dr. Marvin consulted; recommendations appreciated -s/p IVCF placement, POD 1 -currently off anticoagulation - MRI brain 08/15/18: * There is a relatively large subacute right MCA territory infarct with areas of hemorrhage in the basal ganglia and right posterior frontoparietal watershed zone as described. persistent mass effect with compression of the right lateral ventricle and [id number] midline shunt with septum pellucidum located approximately 11mm to left of midline. Mild on dilation left ventricle due to mild compressive effects at the level of the left formaen of Garza - CT Head (08/20/18): Interval evolution of large R MCA territory hemorrhagic infarction with mass effect and effacement of R cerebral cortical sulci, R lateral ventricle and 10 mm midline shift from R to L - CT Head (08/19/18): Continued evolution hemorrhagic conversion of R MCA infartc. Persistent mass effect with overlying sulcal effacement as well as compression of R lateral ventricle and mid R->L midline shift. - CT Head (08/15/18): Large R MCA infarct with questionable hemorrhagic conversion changes. Mild mass effect with overlying sulcal effacement and compression of R lateral ventricle lower shift of the septum pellucidum from L to R by ~ 11mm. - CT Head (08/14/18): obtained; see report for detail - CT Head (08/13/18) * Larger subacute MCA territory branch infarct with what appears to represent hemorrhagic conversion changes in the right basal ganglia. Moderate to fairly significant mass-effect with compression of the right cerebral hemisphere including right lateral ventrical which is shifted to the left side. Midline shift of the septum pellucidum estimated at approximately 10mm. Mild dilatation of the left lateral ventricle likely due to compression at the level of the left foramen of Monro. - CT head (08/12/18) * Hemorrhage conversion of known large right MCA territory infarction with local regional mass effect, diffuse cerebral edema, and 11mm midline from right to left. interval development of right SOTO territory infarction involving the paramedian frontal lobe. - CT Head (08/11/18) * large on MCA branch territory infarct involving right basal ganglia and right posterior frontoparietal region extending to vertex with mass effect with overlying sulcal effacement, compression of the right lateral ventricle and shift of the septum pellucidum from right to left lateral ventricle suggesting mild early compressive effects at the level of left foramen of Garza. No definitive evidence of acute intracranial hemorrhage. - CT head/neck * No evidence of occlusion, dissection or significant stenosis of the cervical carotid or vertebral circulation. mild atheroscelroritc plauqe changes seen both cartoid siphons. no evidence of large aneurysm nor vascular malformation. - NS 3% @ 60ml/hrs * Goal serum sodium of 145-150 and serum osm of less than 320 * Od=371, Oss= 314 * Discontinued - Neurosurgery Dr. Hernandez consulted; recommendations appreciated * No craniotomy warranted at this time CV: - ECHO obtained, per official report * Limited study: negative study * No evidence inter-cavitary shunt - telemetry monitor Pulm: - Chest CT (08/19): Technically limited exam. Extensive pulmonary thromboembolism. Possible R ventricular strain. Incidental atelecasis vs atypical pleural thickening in both lung bases. F/U Chest CT advised. Nonspecific nodular opacity in RLL. Multiple small rounded low density masses in both lobes of liver. Renal: - No acute issues - Monitor CMP, Mg, Phos ID: - No acute issues - Monitor CBC with diff -on ciprofloxacin Case discussed with Dr. Destin Gao DO, PGY-1 <Dominik Weir S - Last Filed: 08/21/18 17:50> CCU Objective - Vital Signs / Intake & Output Vital Signs (Last 4 hours): Vital Signs Temp Pulse Resp BP Pulse Ox 08/21/18 17:07 115 H 21 106/78 96 08/21/18 17:00 111 H 22 96 08/21/18 16:18 109 H 18 106/65 97 08/21/18 16:07 106 H 20 99/72 L 97 08/21/18 16:00 97.7 F 105 H 20 97 08/21/18 15:07 110 H 21 132/84 99 08/21/18 15:00 109 H 20 98 08/21/18 14:40 126 H 22 131/87 99 08/21/18 14:07 123 H 21 116/59 L 100 08/21/18 14:00 121 H 18 100 Intake and Output (Last 8hrs): Intake & Output 08/21/18 08/21/18 08/21/18 06:59 14:59 22:59 Intake Total 350 754 0 Output Total 555 400 0 Balance -205 354 0 Weight 214 lb 1.5 oz Intake: Intake, IV Amount 350 200 Left Wrist 350 Right PICC 200 Oral 0 554 0 Output: Urine 555 400 0 Urine, Voided 555 400 0 Other: # Voids Urine, Voided 1 # Bowel Movements 0 0 - Medications Active Medications: Active Medications Generic Name Dose Route Start Last Admin Trade Name Freq PRN Reason Stop Dose Admin Folic Acid 1 mg 08/19/18 10:00 08/21/18 09:59 Folic Acid PO 1 mg DAILY MARCO ANTONIO Administration Hydrocortisone 1 applic 08/21/18 10:40 08/21/18 11:33 Cortizone 0.5% Cream TOP 1 applic PRN MARCO ANTONIO Administration Ciprofloxacin 400 mg in 200 mls @ 190.476 mls/hr 08/18/18 22:00 08/21/18 10:00 Cipro 400mg/200ml Dsw IVPB 08/22/18 22:01 190.476 mls/hr Q12H MARCO ANTONIO Administration Protocol Lactobacillus Acidophilus 1 cap 08/19/18 10:00 08/21/18 09:59 Bacid Acidophilus PO 1 cap BID MARCO ANTONIO Administration Metoprolol Tartrate 5 mg 08/19/18 17:41 Lopressor IVP Q6H PRN Systolic Blood Pressure >160 Metoprolol Tartrate 25 mg 08/21/18 10:00 08/21/18 10:08 Lopressor PO 25 mg BID MARCO ANTONIO Administration Multivitamins 1 tab 08/19/18 10:00 08/21/18 09:59 Hexavitamin PO 1 tab DAILY MARCO ANTONIO Administration Pantoprazole Sodium 40 mg 08/16/18 10:00 08/21/18 09:59 Protonix Ec Tab PO 40 mg DAILY MARCO ANTONIO Administration Polyethylene Glycol 17 gm 08/19/18 10:00 08/21/18 10:00 Miralax PO 17 gm DAILY MARCO ANTONIO Administration Rosuvastatin Calcium 20 mg 08/11/18 22:00 08/18/18 22:06 Crestor NG 20 mg HS MARCO ANTONIO Administration Senna/Docusate Sodium 1 tab 08/13/18 12:00 08/21/18 09:59 Senokot S 50 Mg-8.6 Mg PO 1 tab BID MARCO ANTONIO Administration Thiamine HCl 100 mg 08/19/18 10:00 08/21/18 09:59 Vitamin B1 Tab PO 100 mg DAILY MARCO ANTONIO Administration - Patient Studies Lab Studies: Microbiology Studies 08/19/18 19:50 MRSA Culture (Admit) - Final Naris MRSA NOT DETECTED 08/19/18 11:30 Blood Culture - Preliminary Blood NO GROWTH AFTER 48 HOURS 08/19/18 11:30 Blood Culture - Preliminary Blood NO GROWTH AFTER 48 HOURS 08/19/18 19:56 MRSA Culture - Final Naris MRSA NOT DETECTED 08/19/18 14:08 Urine Culture - Final Urine,Catheterized No Growth (<1,000 CFU/ML) Lab Studies 11/21/18 11/21/18 11/21/18 Range/Units 16:25 11:36 07:27 WBC (4.8-10.8) K/uL RBC (4.40-5.90) Mil/uL Hgb (12.0-18.0) g/dL Hct (35.0-51.0) % MCV (80.0-94.0) fL MCH (27.0-31.0) pg MCHC (33.0-37.0) g/dL RDW (11.5-14.5) % Plt Count (130-400) K/uL MPV (7.2-11.7) fL Neut % (Auto) (50.0-75.0) % Lymph % (Auto) (20.0-40.0) % [place] % (Auto) (0.0-10.0) % Eos % (Auto) (0.0-4.0) % Baso % (Auto) (0.0-2.0) % Neut # (Auto) (1.8-7.0) K/uL Lymph # (Auto) (1.0-4.3) K/uL [place] # (Auto) (0.0-0.8) K/uL Eos # (Auto) (0.0-0.7) K/uL Baso # (Auto) (0.0-0.2) K/uL Neutrophils % (Manual) (50-75) % Band Neutrophils % (0-2) % Lymphocytes % (Manual) (20-40) % Monocytes % (Manual) (0-10) % Eosinophils % (Manual) (0-4) % Platelet Estimate (NORMAL) RBC Morphology PT (9.7-12.2) SECONDS INR APTT (21-34) SECONDS Sodium (132-148) mmol/L Potassium (3.6-5.2) mmol/L Chloride (98-107) mmol/L Carbon Dioxide (22-30) mmol/L Anion Gap (10-20) BUN (9-20) mg/dL Creatinine (0.8-1.5) mg/dL Est GFR ( Amer) Est GFR (Non-Af Amer) POC Glucose (mg/dL) 191 H 240 H 132 H (65-110) mg/dL Random Glucose (75-110) mg/dL Calcium (8.6-10.4) mg/dl Phosphorus (2.5-4.5) mg/dL Magnesium (1.6-2.3) mg/dL Total Bilirubin (0.2-1.3) mg/dL AST (17-59) U/L ALT (21-72) U/L Alkaline Phosphatase (38-126) U/L Total Protein (6.3-8.3) g/dL Albumin (3.5-5.0) g/dL Globulin (2.2-3.9) gm/dL Albumin/Globulin Ratio (1.0-2.1) Anti-Cardiolipin IgG Ab (<=14) GPL Anti-Cardiolipin IgA Ab (<=11) APL Anti-Cardiolipin IgM Ab (<=12) MPL 08/21/18 08/21/18 08/20/18 Range/Units 05:53 05:52 21:13 WBC 19.5 H (4.8-10.8) K/uL RBC 4.72 (4.40-5.90) Mil/uL Hgb 13.5 (12.0-18.0) g/dL Hct 41.1 (35.0-51.0) % MCV 87.1 (80.0-94.0) fL MCH 28.6 (27.0-31.0) pg MCHC 32.9 L (33.0-37.0) g/dL RDW 13.2 (11.5-14.5) % Plt Count 168 (130-400) K/uL MPV 10.8 (7.2-11.7) fL Neut % (Auto) 87.5 H (50.0-75.0) % Lymph % (Auto) 4.0 L (20.0-40.0) % [place] % (Auto) 5.6 (0.0-10.0) % Eos % (Auto) 2.6 (0.0-4.0) % Baso % (Auto) 0.3 (0.0-2.0) % Neut # (Auto) 17.1 H (1.8-7.0) K/uL Lymph # (Auto) 0.8 L (1.0-4.3) K/uL [place] # (Auto) 1.1 H (0.0-0.8) K/uL Eos # (Auto) 0.5 (0.0-0.7) K/uL Baso # (Auto) 0.1 (0.0-0.2) K/uL Neutrophils % (Manual) 93 H (50-75) % Band Neutrophils % (0-2) % Lymphocytes % (Manual) 4 L (20-40) % Monocytes % (Manual) 2 (0-10) % Eosinophils % (Manual) 1 (0-4) % Platelet Estimate Normal (NORMAL) RBC Morphology Normal PT (9.7-12.2) SECONDS INR APTT (21-34) SECONDS Sodium 142 (132-148) mmol/L Potassium 4.2 (3.6-5.2) mmol/L Chloride 105 (98-107) mmol/L Carbon Dioxide 26 (22-30) mmol/L Anion Gap 15 (10-20) BUN 29 H (9-20) mg/dL Creatinine 1.0 (0.8-1.5) mg/dL Est GFR ( Amer) > 60 Est GFR (Non-Af Amer) > 60 POC Glucose (mg/dL) 133 H (65-110) mg/dL Random Glucose 144 H (75-110) mg/dL Calcium 8.6 (8.6-10.4) mg/dl Phosphorus 4.0 (2.5-4.5) mg/dL Magnesium 2.8 H (1.6-2.3) mg/dL Total Bilirubin 1.0 (0.2-1.3) mg/dL AST 160 H D (17-59) U/L ALT 303 H D (21-72) U/L Alkaline Phosphatase 99 (38-126) U/L Total Protein 7.4 (6.3-8.3) g/dL Albumin 3.4 L (3.5-5.0) g/dL Globulin 4.0 H (2.2-3.9) gm/dL Albumin/Globulin Ratio 0.8 L (1.0-2.1) Anti-Cardiolipin IgG Ab (<=14) GPL Anti-Cardiolipin IgA Ab (<=11) APL Anti-Cardiolipin IgM Ab (<=12) MPL 08/20/18 08/20/18 08/20/18 Range/Units 16:18 12:29 10:00 WBC (4.8-10.8) K/uL RBC (4.40-5.90) Mil/uL Hgb (12.0-18.0) g/dL Hct (35.0-51.0) % MCV (80.0-94.0) fL MCH (27.0-31.0) pg MCHC (33.0-37.0) g/dL RDW (11.5-14.5) % Plt Count (130-400) K/uL MPV (7.2-11.7) fL Neut % (Auto) (50.0-75.0) % Lymph % (Auto) (20.0-40.0) % [place] % (Auto) (0.0-10.0) % Eos % (Auto) (0.0-4.0) % Baso % (Auto) (0.0-2.0) % Neut # (Auto) (1.8-7.0) K/uL Lymph # (Auto) (1.0-4.3) K/uL [place] # (Auto) (0.0-0.8) K/uL Eos # (Auto) (0.0-0.7) K/uL Baso # (Auto) (0.0-0.2) K/uL Neutrophils % (Manual) (50-75) % Band Neutrophils % (0-2) % Lymphocytes % (Manual) (20-40) % Monocytes % (Manual) (0-10) % Eosinophils % (Manual) (0-4) % Platelet Estimate (NORMAL) RBC Morphology PT (9.7-12.2) SECONDS INR APTT (21-34) SECONDS Sodium (132-148) mmol/L Potassium (3.6-5.2) mmol/L Chloride (98-107) mmol/L Carbon Dioxide (22-30) mmol/L Anion Gap (10-20) BUN (9-20) mg/dL Creatinine (0.8-1.5) mg/dL Est GFR ( Amer) Est GFR (Non-Af Amer) POC Glucose (mg/dL) 117 H 148 H (65-110) mg/dL Random Glucose (75-110) mg/dL Calcium (8.6-10.4) mg/dl Phosphorus (2.5-4.5) mg/dL Magnesium (1.6-2.3) mg/dL Total Bilirubin (0.2-1.3) mg/dL AST (17-59) U/L ALT (21-72) U/L Alkaline Phosphatase (38-126) U/L Total Protein (6.3-8.3) g/dL Albumin (3.5-5.0) g/dL Globulin (2.2-3.9) gm/dL Albumin/Globulin Ratio (1.0-2.1) Anti-Cardiolipin IgG Ab <14 (<=14) GPL Anti-Cardiolipin IgA Ab <11 (<=11) APL Anti-Cardiolipin IgM Ab <12 (<=12) MPL 08/20/18 08/20/18 08/20/18 Range/Units 07:40 06:00 06:00 WBC 16.6 H (4.8-10.8) K/uL RBC 4.71 (4.40-5.90) Mil/uL Hgb 13.7 (12.0-18.0) g/dL Hct 40.9 (35.0-51.0) % MCV 86.9 (80.0-94.0) fL MCH 29.0 (27.0-31.0) pg MCHC 33.4 (33.0-37.0) g/dL RDW 13.2 (11.5-14.5) % Plt Count 151 (130-400) K/uL MPV 10.8 (7.2-11.7) fL Neut % (Auto) 81.5 H (50.0-75.0) % Lymph % (Auto) 7.5 L (20.0-40.0) % [place] % (Auto) 7.8 (0.0-10.0) % Eos % (Auto) 2.6 (0.0-4.0) % Baso % (Auto) 0.6 (0.0-2.0) % Neut # (Auto) 81.5 H (1.8-7.0) K/uL Lymph # (Auto) 7.5 H (1.0-4.3) K/uL [place] # (Auto) 7.8 H (0.0-0.8) K/uL Eos # (Auto) 2.6 H (0.0-0.7) K/uL Baso # (Auto) 0.6 H (0.0-0.2) K/uL Neutrophils % (Manual) 84 H (50-75) % Band Neutrophils % 1 (0-2) % Lymphocytes % (Manual) 10 L (20-40) % Monocytes % (Manual) 4 (0-10) % Eosinophils % (Manual) 1 (0-4) % Platelet Estimate Normal (NORMAL) RBC Morphology Normal PT 17.1 H (9.7-12.2) SECONDS INR 1.6 APTT 35 H (21-34) SECONDS Sodium (132-148) mmol/L Potassium (3.6-5.2) mmol/L Chloride (98-107) mmol/L Carbon Dioxide (22-30) mmol/L Anion Gap (10-20) BUN (9-20) mg/dL Creatinine (0.8-1.5) mg/dL Est GFR ( Amer) Est GFR (Non-Af Amer) POC Glucose (mg/dL) 146 H (65-110) mg/dL Random Glucose (75-110) mg/dL Calcium (8.6-10.4) mg/dl Phosphorus (2.5-4.5) mg/dL Magnesium (1.6-2.3) mg/dL Total Bilirubin (0.2-1.3) mg/dL AST (17-59) U/L ALT (21-72) U/L Alkaline Phosphatase (38-126) U/L Total Protein (6.3-8.3) g/dL Albumin (3.5-5.0) g/dL Globulin (2.2-3.9) gm/dL Albumin/Globulin Ratio (1.0-2.1) Anti-Cardiolipin IgG Ab (<=14) GPL Anti-Cardiolipin IgA Ab (<=11) APL Anti-Cardiolipin IgM Ab (<=12) MPL 08/20/18 08/19/18 08/19/18 Range/Units 06:00 21:22 16:12 WBC (4.8-10.8) K/uL RBC (4.40-5.90) Mil/uL Hgb (12.0-18.0) g/dL Hct (35.0-51.0) % MCV (80.0-94.0) fL MCH (27.0-31.0) pg MCHC (33.0-37.0) g/dL RDW (11.5-14.5) % Plt Count (130-400) K/uL MPV (7.2-11.7) fL Neut % (Auto) (50.0-75.0) % Lymph % (Auto) (20.0-40.0) % [place] % (Auto) (0.0-10.0) % Eos % (Auto) (0.0-4.0) % Baso % (Auto) (0.0-2.0) % Neut # (Auto) (1.8-7.0) K/uL Lymph # (Auto) (1.0-4.3) K/uL [place] # (Auto) (0.0-0.8) K/uL Eos # (Auto) (0.0-0.7) K/uL Baso # (Auto) (0.0-0.2) K/uL Neutrophils % (Manual) (50-75) % Band Neutrophils % (0-2) % Lymphocytes % (Manual) (20-40) % Monocytes % (Manual) (0-10) % Eosinophils % (Manual) (0-4) % Platelet Estimate (NORMAL) RBC Morphology PT (9.7-12.2) SECONDS INR APTT (21-34) SECONDS Sodium 141 (132-148) mmol/L Potassium 4.4 (3.6-5.2) mmol/L Chloride 106 (98-107) mmol/L Carbon Dioxide 25 (22-30) mmol/L Anion Gap 13 (10-20) BUN 25 H (9-20) mg/dL Creatinine 0.9 (0.8-1.5) mg/dL Est GFR ( Amer) > 60 Est GFR (Non-Af Amer) > 60 POC Glucose (mg/dL) 164 H 171 H (65-110) mg/dL Random Glucose 151 H (75-110) mg/dL Calcium 9.0 (8.6-10.4) mg/dl Phosphorus 3.9 (2.5-4.5) mg/dL Magnesium 2.5 H (1.6-2.3) mg/dL Total Bilirubin 0.8 (0.2-1.3) mg/dL AST 302 H D (17-59) U/L ALT 456 H D (21-72) U/L Alkaline Phosphatase 114 (38-126) U/L Total Protein 7.6 (6.3-8.3) g/dL Albumin 3.7 (3.5-5.0) g/dL Globulin 3.9 (2.2-3.9) gm/dL Albumin/Globulin Ratio 1.0 (1.0-2.1) Anti-Cardiolipin IgG Ab (<=14) GPL Anti-Cardiolipin IgA Ab (<=11) APL Anti-Cardiolipin IgM Ab (<=12) MPL 08/19/18 08/19/18 08/19/18 Range/Units 11:03 07:07 00:02 WBC (4.8-10.8) K/uL RBC (4.40-5.90) Mil/uL Hgb (12.0-18.0) g/dL Hct (35.0-51.0) % MCV (80.0-94.0) fL MCH (27.0-31.0) pg MCHC (33.0-37.0) g/dL RDW (11.5-14.5) % Plt Count (130-400) K/uL MPV (7.2-11.7) fL Neut % (Auto) (50.0-75.0) % Lymph % (Auto) (20.0-40.0) % [place] % (Auto) (0.0-10.0) % Eos % (Auto) (0.0-4.0) % Baso % (Auto) (0.0-2.0) % Neut # (Auto) (1.8-7.0) K/uL Lymph # (Auto) (1.0-4.3) K/uL [place] # (Auto) (0.0-0.8) K/uL Eos # (Auto) (0.0-0.7) K/uL Baso # (Auto) (0.0-0.2) K/uL Neutrophils % (Manual) (50-75) % Band Neutrophils % (0-2) % Lymphocytes % (Manual) (20-40) % Monocytes % (Manual) (0-10) % Eosinophils % (Manual) (0-4) % Platelet Estimate (NORMAL) RBC Morphology PT (9.7-12.2) SECONDS INR APTT (21-34) SECONDS Sodium (132-148) mmol/L Potassium (3.6-5.2) mmol/L Chloride (98-107) mmol/L Carbon Dioxide (22-30) mmol/L Anion Gap (10-20) BUN (9-20) mg/dL Creatinine (0.8-1.5) mg/dL Est GFR ( Amer) Est GFR (Non-Af Amer) POC Glucose (mg/dL) 279 H 127 H 183 H (65-110) mg/dL Random Glucose (75-110) mg/dL Calcium (8.6-10.4) mg/dl Phosphorus (2.5-4.5) mg/dL Magnesium (1.6-2.3) mg/dL Total Bilirubin (0.2-1.3) mg/dL AST (17-59) U/L ALT (21-72) U/L Alkaline Phosphatase (38-126) U/L Total Protein (6.3-8.3) g/dL Albumin (3.5-5.0) g/dL Globulin (2.2-3.9) gm/dL Albumin/Globulin Ratio (1.0-2.1) Anti-Cardiolipin IgG Ab (<=14) GPL Anti-Cardiolipin IgA Ab (<=11) APL Anti-Cardiolipin IgM Ab (<=12) MPL Laboratory Results - last 24 hr 08/19/18 08/19/18 08/19/18 00:02 07:07 11:03 WBC RBC Hgb Hct MCV MCH MCHC RDW Plt Count MPV Neut % (Auto) Lymph % (Auto) [place] % (Auto) Eos % (Auto) Baso % (Auto) Neut # (Auto) Lymph # (Auto) [place] # (Auto) Eos # (Auto) Baso # (Auto) Neutrophils % (Manual) Band Neutrophils % Lymphocytes % (Manual) Monocytes % (Manual) Eosinophils % (Manual) Platelet Estimate RBC Morphology PT INR APTT Sodium Potassium Chloride Carbon Dioxide Anion Gap BUN Creatinine Est GFR ( Amer) Est GFR (Non-Af Amer) POC Glucose (mg/dL) 183 H 127 H 279 H Random Glucose Calcium Phosphorus Magnesium Total Bilirubin AST ALT Alkaline Phosphatase Total Protein Albumin Globulin Albumin/Globulin Ratio Anti-Cardiolipin IgG Ab Anti-Cardiolipin IgA Ab Anti-Cardiolipin IgM Ab 08/19/18 08/19/18 08/20/18 16:12 21:22 06:00 WBC RBC Hgb Hct MCV MCH MCHC RDW Plt Count MPV Neut % (Auto) Lymph % (Auto) [place] % (Auto) Eos % (Auto) Baso % (Auto) Neut # (Auto) Lymph # (Auto) [place] # (Auto) Eos # (Auto) Baso # (Auto) Neutrophils % (Manual) Band Neutrophils % Lymphocytes % (Manual) Monocytes % (Manual) Eosinophils % (Manual) Platelet Estimate RBC Morphology PT INR APTT Sodium 141 Potassium 4.4 Chloride 106 Carbon Dioxide 25 Anion Gap 13 BUN 25 H Creatinine 0.9 Est GFR ( Amer) > 60 Est GFR (Non-Af Amer) > 60 POC Glucose (mg/dL) 171 H 164 H Random Glucose 151 H Calcium 9.0 Phosphorus 3.9 Magnesium 2.5 H Total Bilirubin 0.8 AST 302 H D ALT 456 H D Alkaline Phosphatase 114 Total Protein 7.6 Albumin 3.7 Globulin 3.9 Albumin/Globulin Ratio 1.0 Anti-Cardiolipin IgG Ab Anti-Cardiolipin IgA Ab Anti-Cardiolipin IgM Ab 08/20/18 08/20/18 08/20/18 06:00 06:00 07:40 WBC 16.6 H RBC 4.71 Hgb 13.7 Hct 40.9 MCV 86.9 MCH 29.0 MCHC 33.4 RDW 13.2 Plt Count 151 MPV 10.8 Neut % (Auto) 81.5 H Lymph % (Auto) 7.5 L [place] % (Auto) 7.8 Eos % (Auto) 2.6 Baso % (Auto) 0.6 Neut # (Auto) 81.5 H Lymph # (Auto) 7.5 H [place] # (Auto) 7.8 H Eos # (Auto) 2.6 H Baso # (Auto) 0.6 H Neutrophils % (Manual) 84 H Band Neutrophils % 1 Lymphocytes % (Manual) 10 L Monocytes % (Manual) 4 Eosinophils % (Manual) 1 Platelet Estimate Normal RBC Morphology Normal PT 17.1 H INR 1.6 APTT 35 H Sodium Potassium Chloride Carbon Dioxide Anion Gap BUN Creatinine Est GFR ( Amer) Est GFR (Non-Af Amer) POC Glucose (mg/dL) 146 H Random Glucose Calcium Phosphorus Magnesium Total Bilirubin AST ALT Alkaline Phosphatase Total Protein Albumin Globulin Albumin/Globulin Ratio Anti-Cardiolipin IgG Ab Anti-Cardiolipin IgA Ab Anti-Cardiolipin IgM Ab 08/20/18 08/20/18 08/20/18 10:00 12:29 16:18 WBC RBC Hgb Hct MCV MCH MCHC RDW Plt Count MPV Neut % (Auto) Lymph % (Auto) [place] % (Auto) Eos % (Auto) Baso % (Auto) Neut # (Auto) Lymph # (Auto) [place] # (Auto) Eos # (Auto) Baso # (Auto) Neutrophils % (Manual) Band Neutrophils % Lymphocytes % (Manual) Monocytes % (Manual) Eosinophils % (Manual) Platelet Estimate RBC Morphology PT INR APTT Sodium Potassium Chloride Carbon Dioxide Anion Gap BUN Creatinine Est GFR ( Amer) Est GFR (Non-Af Amer) POC Glucose (mg/dL) 148 H 117 H Random Glucose Calcium Phosphorus Magnesium Total Bilirubin AST ALT Alkaline Phosphatase Total Protein Albumin Globulin Albumin/Globulin Ratio Anti-Cardiolipin IgG Ab <14 Anti-Cardiolipin IgA Ab <11 Anti-Cardiolipin IgM Ab <12 08/20/18 08/21/18 08/21/18 21:13 05:52 05:53 WBC 19.5 H RBC 4.72 Hgb 13.5 Hct 41.1 MCV 87.1 MCH 28.6 MCHC 32.9 L RDW 13.2 Plt Count 168 MPV 10.8 Neut % (Auto) 87.5 H Lymph % (Auto) 4.0 L [place] % (Auto) 5.6 Eos % (Auto) 2.6 Baso % (Auto) 0.3 Neut # (Auto) 17.1 H Lymph # (Auto) 0.8 L [place] # (Auto) 1.1 H Eos # (Auto) 0.5 Baso # (Auto) 0.1 Neutrophils % (Manual) 93 H Band Neutrophils % Lymphocytes % (Manual) 4 L Monocytes % (Manual) 2 Eosinophils % (Manual) 1 Platelet Estimate Normal RBC Morphology Normal PT INR APTT Sodium 142 Potassium 4.2 Chloride 105 Carbon Dioxide 26 Anion Gap 15 BUN 29 H Creatinine 1.0 Est GFR ( Amer) > 60 Est GFR (Non-Af Amer) > 60 POC Glucose (mg/dL) 133 H Random Glucose 144 H Calcium 8.6 Phosphorus 4.0 Magnesium 2.8 H Total Bilirubin 1.0 AST 160 H D ALT 303 H D Alkaline Phosphatase 99 Total Protein 7.4 Albumin 3.4 L Globulin 4.0 H Albumin/Globulin Ratio 0.8 L Anti-Cardiolipin IgG Ab Anti-Cardiolipin IgA Ab Anti-Cardiolipin IgM Ab 08/21/18 08/21/18 08/21/18 07:27 11:36 16:25 WBC RBC Hgb Hct MCV MCH MCHC RDW Plt Count MPV Neut % (Auto) Lymph % (Auto) [place] % (Auto) Eos % (Auto) Baso % (Auto) Neut # (Auto) Lymph # (Auto) [place] # (Auto) Eos # (Auto) Baso # (Auto) Neutrophils % (Manual) Band Neutrophils % Lymphocytes % (Manual) Monocytes % (Manual) Eosinophils % (Manual) Platelet Estimate RBC Morphology PT INR APTT Sodium Potassium Chloride Carbon Dioxide Anion Gap BUN Creatinine Est GFR ( Amer) Est GFR (Non-Af Amer) POC Glucose (mg/dL) 132 H 240 H 191 H Random Glucose Calcium Phosphorus Magnesium Total Bilirubin AST ALT Alkaline Phosphatase Total Protein Albumin Globulin Albumin/Globulin Ratio Anti-Cardiolipin IgG Ab Anti-Cardiolipin IgA Ab Anti-Cardiolipin IgM Ab Critical Care Progress Note - Nutrition Nutrition: Nutrition Category Date Time Status Dysphagia/Modified Consistency Diet [DIET] Diets 08/20/18 Dinner Active Attending/Attestation - Attestation I have personally seen and examined this patient.: Yes I have fully participated in the care of the patient.: Yes I have reviewed all pertinent clinical information: Yes Notes (Text): 08/21/18 17:49 patient seen and examined in the intensive care unit. Status post IVC filter placement Patient is off anticoagulation Remains tachycardic and started on beta omero Continue present treatment for now DC vancomycin and Zosyn and continue Cipro
[2018-08-21 08:27] LABS: EOSINOPHIL 1 % (0-4); LYMPHOCYTE 4 % (20-40); MONOCYTE 2 % (0-10); NEUTROPHIL 93 % (50-75); PLATELET ESTIMATE NORMAL (NORMAL); TOTAL CELLS COUNTED 100
[2018-08-21] MEDS: Multiple Vitamins Tab PO SCH (09:59)
[2018-08-21] MEDS: Docusate-Senna 50 mg-8.6 mg Tab PO SCH ×2 (09:59→17:54)
[2018-08-21] MEDS: Pantoprazole 40 mg EC Tab PO SCH (09:59)
[2018-08-21] MEDS: Lactobacillus Acidophilus 500 MU Cap PO SCH ×2 (09:59→17:54)
[2018-08-21] MEDS: Ciprofloxacin 400mg/200ml D5W 400 MG/200 ML BAG IVPB SCH ×2 (10:00→21:23)
[2018-08-21] MEDS: POLYETHYLENE GLYCOL 3350 17 GM/Dose PACKET PO SCH (10:00)
--- NOTE | 2018-08-21 10:37 | CP.PCM.PN ---
Subjective - Date & Time of Evaluation Date of Evaluation: 08/21/18 Time of Evaluation: 08:00 - Subjective Subjective: Vascular Surgery: Dr. Mansfield Pt seen and examined. No acute overnight events. States he is ok and admits to some pain in the R groin at the operative site. Denies other complaints at this time. Objective - Vital Signs/Intake and Output Vital Signs (last 24 hours): Temp Pulse Resp BP Pulse Ox 100.5 F H 135 H 24 100/60 96 08/21/18 06:00 08/21/18 09:00 08/21/18 09:00 08/21/18 10:08 08/21/18 09:00 Intake and Output: 08/21/18 08/21/18 06:59 18:59 Intake Total 670 254 Output Total 555 Balance 115 254 - Medications Medications: Current Medications Folic Acid (Folic Acid) 1 mg PO DAILY [facility] Last Admin: 08/21/18 09:59 Dose: 1 mg Ciprofloxacin (Cipro 400mg/200ml Dsw) 400 mg in 200 mls @ 190.476 mls/hr IVPB Q12H [facility]; Protocol Stop: 08/22/18 22:01 Last Admin: 08/21/18 10:00 Dose: 190.476 mls/hr Lactobacillus Acidophilus (Bacid Acidophilus) 1 cap PO BID [facility] Last Admin: 08/21/18 09:59 Dose: 1 cap Metoprolol Tartrate (Lopressor) 5 mg IVP Q6H PRN PRN Reason: Systolic Blood Pressure >160 Metoprolol Tartrate (Lopressor) 25 mg PO BID [facility] Last Admin: 08/21/18 10:08 Dose: 25 mg Multivitamins (Hexavitamin) 1 tab PO DAILY [facility] Last Admin: 08/21/18 09:59 Dose: 1 tab Pantoprazole Sodium (Protonix Ec Tab) 40 mg PO DAILY [facility] Last Admin: 08/21/18 09:59 Dose: 40 mg Polyethylene Glycol (Miralax) 17 gm PO DAILY [facility] Last Admin: 08/21/18 10:00 Dose: 17 gm Rosuvastatin Calcium (Crestor) 20 mg NG HS [facility] Last Admin: 08/18/18 22:06 Dose: 20 mg Senna/Docusate Sodium (Senokot S 50 Mg-8.6 Mg) 1 tab PO BID [facility] Last Admin: 08/21/18 09:59 Dose: 1 tab Thiamine HCl (Vitamin B1 Tab) 100 mg PO DAILY [facility] Last Admin: 08/21/18 09:59 Dose: 100 mg - Labs Labs: 08/21/18 05:52 08/21/18 05:53 PT 17.1 SECONDS (9.7-12.2) H 08/20/18 06:00 INR 1.6 08/20/18 06:00 APTT 35 SECONDS (21-34) H 08/20/18 06:00 - Constitutional Appears: Well, No Acute Distress - ENT Exam ENT Exam: Mucous Membranes Moist - Respiratory Exam Respiratory Exam: NORMAL BREATHING PATTERN - Cardiovascular Exam Cardiovascular Exam: Tachycardia - GI/Abdominal Exam GI & Abdominal Exam: Soft - Extremities Exam Additional comments: R groin with dressing clean/dry - Neurological Exam Neurological Exam: Alert, Awake - Skin Skin Exam: Dry, Warm Assessment and Plan - Assessment and Plan (Free Text) Assessment: 52M s/p IVCF placement; POD#1 Plan: - no further surgical intervention - d/w Dr. Shyla Almonte
[2018-08-21 12:11] LABS: CARDIOLIPIN AB (IGA) <11 APL (<=11)
--- NOTE | 2018-08-21 12:27 | CP.PCM.PN ---
Subjective - Date & Time of Evaluation Date of Evaluation: 08/21/18 Time of Evaluation: 12:27 Objective - Vital Signs/Intake and Output Vital Signs (last 24 hours): Temp Pulse Resp BP Pulse Ox 100.5 F H 135 H 24 100/60 96 08/21/18 06:00 08/21/18 09:00 08/21/18 09:00 08/21/18 10:08 08/21/18 09:00 Intake and Output: 08/21/18 08/21/18 06:59 18:59 Intake Total 670 454 Output Total 555 Balance 115 454 - Medications Medications: Current Medications Folic Acid (Folic Acid) 1 mg PO DAILY [facility] Last Admin: 08/21/18 09:59 Dose: 1 mg Hydrocortisone (Cortizone 0.5% Cream) 1 applic TOP PRN [facility] Last Admin: 08/21/18 11:33 Dose: 1 applic Ciprofloxacin (Cipro 400mg/200ml Dsw) 400 mg in 200 mls @ 190.476 mls/hr IVPB Q12H [facility]; Protocol Stop: 08/22/18 22:01 Last Admin: 08/21/18 10:00 Dose: 190.476 mls/hr Lactobacillus Acidophilus (Bacid Acidophilus) 1 cap PO BID [facility] Last Admin: 08/21/18 09:59 Dose: 1 cap Metoprolol Tartrate (Lopressor) 5 mg IVP Q6H PRN PRN Reason: Systolic Blood Pressure >160 Metoprolol Tartrate (Lopressor) 25 mg PO BID [facility] Last Admin: 08/21/18 10:08 Dose: 25 mg Multivitamins (Hexavitamin) 1 tab PO DAILY [facility] Last Admin: 08/21/18 09:59 Dose: 1 tab Pantoprazole Sodium (Protonix Ec Tab) 40 mg PO DAILY [facility] Last Admin: 08/21/18 09:59 Dose: 40 mg Polyethylene Glycol (Miralax) 17 gm PO DAILY [facility] Last Admin: 08/21/18 10:00 Dose: 17 gm Rosuvastatin Calcium (Crestor) 20 mg NG HS [facility] Last Admin: 08/18/18 22:06 Dose: 20 mg Senna/Docusate Sodium (Senokot S 50 Mg-8.6 Mg) 1 tab PO BID [facility] Last Admin: 08/21/18 09:59 Dose: 1 tab Thiamine HCl (Vitamin B1 Tab) 100 mg PO DAILY [facility] Last Admin: 08/21/18 09:59 Dose: 100 mg - Labs Labs: 08/21/18 05:52 08/21/18 05:53 PT 17.1 SECONDS (9.7-12.2) H 08/20/18 06:00 INR 1.6 08/20/18 06:00 APTT 35 SECONDS (21-34) H 08/20/18 06:00 Assessment and Plan (1) Stroke Status: Acute (2) Pulmonary embolism Status: Acute
--- NOTE | 2018-08-21 13:47 | CP.PCM.PN ---
Subjective - Date & Time of Evaluation Date of Evaluation: 08/21/18 Time of Evaluation: 13:47 - Subjective Subjective: Neurology Consultation Follow-Up Note for Dr. Gautam: Mr. Aguayo was seen awake and alert this morning in the ICU. In a better mood today compared to yesterday. Evaluated sitting upright in chair at the bedside. Pt denies any new complaints today and states that he feels good. Denies headache, visual changes, dizziness, nausea, vomiting. Pt is status post IVC filter placement 08/20/18; tolerated well. Objective - Vital Signs/Intake and Output Vital Signs (last 24 hours): Temp Pulse Resp BP Pulse Ox 99.1 F 111 H 23 122/88 99 08/21/18 12:00 08/21/18 13:07 08/21/18 13:07 08/21/18 13:07 08/21/18 13:07 Intake and Output: 08/21/18 08/21/18 06:59 18:59 Intake Total 670 754 Output Total 555 Balance 115 754 - Medications Medications: Current Medications Folic Acid (Folic Acid) 1 mg PO DAILY [facility] Last Admin: 08/21/18 09:59 Dose: 1 mg Hydrocortisone (Cortizone 0.5% Cream) 1 applic TOP PRN [facility] Last Admin: 08/21/18 11:33 Dose: 1 applic Ciprofloxacin (Cipro 400mg/200ml Dsw) 400 mg in 200 mls @ 190.476 mls/hr IVPB Q12H [facility]; Protocol Stop: 08/22/18 22:01 Last Admin: 08/21/18 10:00 Dose: 190.476 mls/hr Lactobacillus Acidophilus (Bacid Acidophilus) 1 cap PO BID [facility] Last Admin: 08/21/18 09:59 Dose: 1 cap Metoprolol Tartrate (Lopressor) 5 mg IVP Q6H PRN PRN Reason: Systolic Blood Pressure >160 Metoprolol Tartrate (Lopressor) 25 mg PO BID [facility] Last Admin: 08/21/18 10:08 Dose: 25 mg Multivitamins (Hexavitamin) 1 tab PO DAILY [facility] Last Admin: 08/21/18 09:59 Dose: 1 tab Pantoprazole Sodium (Protonix Ec Tab) 40 mg PO DAILY [facility] Last Admin: 08/21/18 09:59 Dose: 40 mg Polyethylene Glycol (Miralax) 17 gm PO DAILY [facility] Last Admin: 08/21/18 10:00 Dose: 17 gm Rosuvastatin Calcium (Crestor) 20 mg NG HS [facility] Last Admin: 08/18/18 22:06 Dose: 20 mg Senna/Docusate Sodium (Senokot S 50 Mg-8.6 Mg) 1 tab PO BID [facility] Last Admin: 08/21/18 09:59 Dose: 1 tab Thiamine HCl (Vitamin B1 Tab) 100 mg PO DAILY [facility] Last Admin: 08/21/18 09:59 Dose: 100 mg - Labs Labs: 08/21/18 05:52 08/21/18 05:53 PT 17.1 SECONDS (9.7-12.2) H 08/20/18 06:00 INR 1.6 08/20/18 06:00 APTT 35 SECONDS (21-34) H 08/20/18 06:00 - Constitutional Appears: Well, Non-toxic, No Acute Distress - Head Exam Head Exam: ATRAUMATIC, NORMAL INSPECTION, NORMOCEPHALIC - Eye Exam Eye Exam: EOMI, Normal appearance - ENT Exam ENT Exam: Mucous Membranes Moist - Respiratory Exam Respiratory Exam: NORMAL BREATHING PATTERN - Neurological Exam Neurological Exam: Alert, Awake, CN II-XII Intact Neuro motor strength exam: Left Upper Extremity: 0, Right Upper Extremity: 5, Left Lower Extremity: 0, Right Lower Extremity: 5 Additional comments: + left hemiplegia and left sided neglect - Psychiatric Exam Psychiatric exam: Normal Affect, Normal Mood - Skin Skin Exam: Dry, Normal Color, Warm Assessment and Plan (1) Stroke Assessment & Plan: Imagin) CT Head Without Contrast (08/20/18): interval evolution of large right MCA territory hemorrhagic infarction with mass effect and effacement of the right cerebral cortical sulci, right lateral ventricle and 10 mm midline shift from right to left. No significant interval change. 2) See serial CT Head reports for previous results. 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 -He now has a PE; for IVC Filter placed yesterday (08/20/18) with vascular surgery. -Originally we planned on starting Lovenox 100 mg SQ Q12, with patient being aware of the risk of re-bleeding. -At risk for re-bleeding of hemorrhagic conversion; Lovenox on hold for now. -Will continue to monitor repeat head CTs and then decide on anticoagulation. -Please notify neurology team for any acute changes in mental status and condition. -Thank you for allowing us to participate in the care and treatment of your patient. -Case discussed and reviewed with Dr. Gautam. Status: Acute (2) Pulmonary embolism Assessment & Plan: -Mr. Aguayo is status post IVC filter placement 08/20/18. -Discussed anticoagulation with ticket printer and tagger, Dr. Weir, and pt will have repeat head CTs done prior to final decision on anticoagulation. Status: Acute
[2018-08-21] MEDS ORDERED: Metoprolol 1 mg/ml Inj IVP ONE (14:19)
--- NOTE | 2018-08-21 14:28 | PN ---
DATE: 08/21/2018 SUBJECTIVE: The patient underwent IVC filter placement via right femoral venous access yesterday. No reported bleeding. PHYSICAL EXAMINATION: VITAL SIGNS: Blood pressure 100/60, heart rate 135, temperature 100.5, respirations 21. HEENT: No pallor or icterus. CHEST: Clear. HEART: S1 and S2 regular. EXTREMITIES: No right groin hematoma. 1+ left leg edema. LABORATORY DATA: Hemoglobin and hematocrit 16.5 and 41.4, white count 19.5, platelet count 168,000. Today's SMA-7 is within normal limits except for glucose of 144 and BUN of 29. Magnesium is elevated at 2.8. Yesterday's chest x-ray, insertion of right PICC line, no pneumothorax. Official report of venous Doppler lower extremities, acute thrombosis of the left common femoral popliteal and posterior tibial, peroneal and gastrocnemius veins with severe reduction of the venous flow. ASSESSMENT: 1. Left leg deep vein thrombosis with bilateral pulmonary embolism. 2. Pulmonary hemorrhagic right mid cerebral artery territory infarct with hemorrhages in the basal ganglia and right posterior frontoparietal watershed zone midline shift. CONDITIONS: 1. Continue current IVs. 2. Low grade fever. The patient is to continue current IV Cipro. Continue Lopressor 25 mg twice a day, Crestor 20 mg once a day. Jacob De Jesus MD
--- NOTE | 2018-08-21 22:12 | CP.PCM.PN ---
Subjective - Date & Time of Evaluation Date of Evaluation: 08/21/18 Time of Evaluation: 15:00 - Subjective Subjective: Medical Attending Note: Patient seen and examined. Patient is status post IVC filter. Patient denies acute complaints. Patient noted persistent left sided weakness both upper and lower extremities. Objective - Vital Signs/Intake and Output Vital Signs (last 24 hours): Temp Pulse Resp BP Pulse Ox 97.7 F 112 H 22 123/80 98 08/21/18 16:00 08/21/18 21:07 08/21/18 21:07 08/21/18 21:07 08/21/18 21:07 Intake and Output: 08/21/18 08/22/18 18:59 06:59 Intake Total 1004 0 Output Total 400 Balance 604 0 - Medications Medications: Current Medications Folic Acid (Folic Acid) 1 mg PO DAILY [facility] Last Admin: 08/21/18 09:59 Dose: 1 mg Hydrocortisone (Cortizone 0.5% Cream) 1 applic TOP PRN [facility] Last Admin: 08/21/18 18:27 Dose: 1 applic Ciprofloxacin (Cipro 400mg/200ml Dsw) 400 mg in 200 mls @ 190.476 mls/hr IVPB Q12H [facility]; Protocol Stop: 08/22/18 22:01 Last Admin: 08/21/18 21:23 Dose: 190.476 mls/hr Lactobacillus Acidophilus (Bacid Acidophilus) 1 cap PO BID [facility] Last Admin: 08/21/18 17:54 Dose: 1 cap Metoprolol Tartrate (Lopressor) 5 mg IVP Q6H PRN PRN Reason: Systolic Blood Pressure >160 Metoprolol Tartrate (Lopressor) 25 mg PO BID [facility] Last Admin: 08/21/18 17:54 Dose: 25 mg Multivitamins (Hexavitamin) 1 tab PO DAILY [facility] Last Admin: 08/21/18 09:59 Dose: 1 tab Pantoprazole Sodium (Protonix Ec Tab) 40 mg PO DAILY [facility] Last Admin: 08/21/18 09:59 Dose: 40 mg Polyethylene Glycol (Miralax) 17 gm PO DAILY [facility] Last Admin: 08/21/18 10:00 Dose: 17 gm Rosuvastatin Calcium (Crestor) 20 mg NG HS [facility] Last Admin: 08/18/18 22:06 Dose: 20 mg Senna/Docusate Sodium (Senokot S 50 Mg-8.6 Mg) 1 tab PO BID [facility] Last Admin: 08/21/18 17:54 Dose: 1 tab Thiamine HCl (Vitamin B1 Tab) 100 mg PO DAILY [facility] Last Admin: 08/21/18 09:59 Dose: 100 mg - Labs Labs: 08/21/18 05:52 08/21/18 05:53 PT 17.1 SECONDS (9.7-12.2) H 08/20/18 06:00 INR 1.6 08/20/18 06:00 APTT 35 SECONDS (21-34) H 08/20/18 06:00 - Constitutional Appears: Non-toxic, No Acute Distress - Head Exam Head Exam: NORMAL INSPECTION - Eye Exam Eye Exam: EOMI - ENT Exam ENT Exam: Mucous Membranes Dry - Respiratory Exam Respiratory Exam: Clear to Ausculation Bilateral, NORMAL BREATHING PATTERN. absent: Rales, Rhonchi - Cardiovascular Exam Cardiovascular Exam: Tachycardia, +S1, +S2 - GI/Abdominal Exam GI & Abdominal Exam: Soft, Normal Bowel Sounds. absent: Distended, Firm, Guarding, Rigid, Tenderness, Rebound - Extremities Exam Extremities Exam: Pedal Edema. absent: Tenderness - Neurological Exam Neurological Exam: Alert, Awake, Oriented x3 Neuro motor strength exam: Left Upper Extremity: 0, Right Upper Extremity: 5, Left Lower Extremity: 0, Right Lower Extremity: 5 - Skin Skin Exam: Dry, Intact, Normal Color, Warm Additional comments: mild hives over the left side of groin and over the chest Assessment and Plan (1) Arterial ischemic stroke, MCA (middle cerebral artery), right, acute Status: Acute (2) ETOH abuse Status: Chronic (3) Impaired glucose tolerance Status: Acute (4) Lipid disorder Status: Acute (5) Leukocytosis Status: Acute (6) Prophylactic measure Status: Acute Attending/Attestation - Attestation I have personally seen and examined this patient.: Yes I have fully participated in the care of the patient.: Yes I have reviewed all pertinent clinical information, including history, physical exam and plan: Yes Notes (Text): 1) Pulmonary embolism and Lower deep vein thrombosis * Tachycardia, elevated D-dimer * CT Angio (08/19) showed for extensive pulmonary thromboembolism * Venous doppler: extensive left lower extremity DVT (affected from stroke) * Patient had hemorrhagic conversion from ischemic MCA stroke * we have ordered for protein c/protein s, antiphospholid, factor leiden, anticardiolipin, lupus workup * patient not eligible for TPA (due to hemorrhagic stroke); patient is 10 days out from stroke. * Vascular surgery consulted for IVC filter * completed 08/20/18 * Discussed with ICU today, no anticoagulation in light of latest CT finding. 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 Assessment & Plan: * Neurosurgery on board-->no intervention * neurology on board-->not candidate for tpa/nor thrombectomy per neuro notes * Seizure precautions * aspiration precautions * hold statin secondary to LFTs * aspirin held due to hemorrhagic conversion * Anticoagulation held given latest CT finding * Antithrombin III, Factor V Leidin, Lupus, Antiphospholipid, Protein S, Protein C, Prothrombin Gene pending Imaging: * CT Head (08/11/18): large on MCA branch territory infarct involving right basal ganglia and right posterior frotnoparietal region extending to vertex with mass effect with overlying sulcal effacement, compression of the right lateral ventricle and shift of the septum pellucidum from right to left lateral ventricle suggesting mild early compressive effects at the level of left foramen of Garza. No definitive evidence of acute intracranial hemorrhage. * CT head and neck: no evidence of occlusion, dissection or significatn stenosis of the cervical caroitd or vertebral circulation. mild atheroscelroritc plauqe changes seen both cartoid siphons. no evidence of large aneurysm nor vascular malformation. * CT head (08/12/18); hemorrhage conversion of known large right MCA territoty infarction with local regional mass effect, diffuse cerenral edema, and 11mm midline from right to left. interval development of right SOTO territory infarction involving the paramedian frontal lobe. * CT Head (08/15/18): relatively large right MCA territory infarct again with questionable hemorrhage conversion changes. Mild mass effect with overlying sulcal effacement and compression of the right lateral ventricle lower shift of the spetum pellucidum from left to right by approximately 11mm. Questionable hemorrhagic conversion * Brain MRI (08/15/18): Relatively large subacute right MCA territory infarct with areas of hemorrhage in the basal ganglkia and right posterio frontoparietal watershed zone as described. persistent mass effect with compression of the right lateral ventricle and right to left midline shift with septum pellucidium approximately 11mm to left of midline. Mild on dilatation left lateral ventricle due to mild compressive effects at level of left foramen of monro. * CT head (08/20/18): interval evolution of large right MCA territory hemorrhagic infarction with mass effect and effacement of the right cerebral cortical sulci, right lateral ventricle and 10 midline shift from right to left. no significant interval change. Status: Acute (2) ETOH abuse Assessment & Plan: * Out of window for withdrawal * Thiamine 100mg PO daily * Folic acid 1 mg PO daily * MVI 1 tab PO daily Status: Chronic (3) Impaired glucose tolerance Assessment & Plan: * will need monitoring of his sugars * repeat a1c in one year to prevent overt diabetes Status: Acute (4) Lipid disorder Assessment & Plan: * elevated cholestrol: 271 * LDL: 184 * HDL: 59 * T * held crestor 20mg PO HS given elevated LFTs (5) Leukocytosis Prior urinary tract infection Assessment & Plan: * Blood culture (08/19/18): no growth after 48 hours X2 * Urine culture (08/19/18): No growth * Procalcitonin: low * Ciprofloxacin 400mg IVQ12H (started 08/18/18) to complete 08/23/18 * Bacid 1 tab PO BID * Prior Blood culture (08/12/18): no growth after 5 days (6) Tachycardia Assessment & Plan: * patient has extensive PE noted on CT angio and Left lower DVT * repeat echo given right heart strain noted on Ct angio * Pending * Echo bubble (08/13/18): limited; negative study; no evidence inter-cavitary shunt. * Echo (08/14/18): normal LV systolic function, normal chamber size, trace to mild TR * Start Lopressor 25mg PO BID (7) Transaminitis Assessment & Plan: * d/c tylenol secondary to transaminitis * Abdominal US (08/19/18): no significant or acute findings to account fo r/related to clinical presentation * hepatitis panel: negative * hold statin given elevated in LFTs * Improving (8) Constipation Assessment & Plan: * Docusate sodium/senna 1 tab PO BID * Start Miralax daily * Dulolax suppository (9) Hypernatremia Assessment & Plan: * normalized (10) Postoperative Fever Assessment & Plan: * s/p IVC filter 08/20/18 * Tmax: 101.5 * Patient is on Cipro to cover for UTI to finish 08/23/18 * Start Incentive Spirometry (11) Hives Assessment & Plan: * Noted over the left side of groin * Patient start on Hydrocortisone topical as needed (12) Prophylactic measure Assessment & Plan: * chemical anticoagulation contraindicated in light of hemorrhagic conversion of MCA stroke * Correct phone number of son: Yayo at [phone] * PT/OT eval * Aspiration precautions * Seizure precautions * s/p IVC filter 08/20/18 * s/p PICC 08/19/18 * SCDS only to right lower extremity; has DVT in L DVT * Protonix 40mg PO daily
--- NOTE | 2018-08-21 22:42 | CARD ---
APPROVED REPORT Date of service: 08/20/2018 EXAM: Two-dimensional and M-mode echocardiogram with Doppler and color Doppler. Other Information Quality : GoodRhythm : INDICATION Pericardial Effusion Right Heart Strain M-Mode DIMENSIONS [id number] (2.1-3.2cm) Mitral Valve E/A ratio0.0 TDI E/Lateral E'0.0E/Medial E'0.0 LEFT VENTRICLE The left ventricle is normal size. There is normal left ventricular wall thickness. Left ventricle systolic function is normal. The Ejection Fraction is 60-65%. There is normal LV segmental wall motion. RIGHT VENTRICLE The right ventricle is normal size. There is normal right ventricular wall thickness. The right ventricular systolic function is normal. ATRIA The left atrium size is normal. The right atrium size is normal. The interatrial septum is intact with no evidence for an atrial septal defect. AORTIC VALVE The aortic valve is normal in structure. No aortic regurgitation is present. There is no aortic valvular stenosis. There is no aortic valvular vegetation. MITRAL VALVE The mitral valve is normal in structure. There is no evidence of mitral valve prolapse. There is no mitral valve stenosis. There is no mitral valve regurgitation noted. TRICUSPID VALVE The tricuspid valve is normal in structure. There is no tricuspid valve regurgitation noted. There is no tricuspid valve prolapse or vegetation. There is no tricuspid valve stenosis. PULMONIC VALVE The pulmonic valve is not well visualized. There is no pulmonic valvular regurgitation. GREAT VESSELS The aortic root is normal in size. PERICARDIAL EFFUSION There is no significant pericardial effusion. <Conclusion> Left ventricle systolic function is normal. The Ejection Fraction is 60-65%. No aortic regurgitation is present. There is no mitral valve regurgitation noted. There is no tricuspid valve regurgitation noted. There is no pulmonic valvular regurgitation.
[2018-08-22 06:21] LABS: BASO # 0.1 K/uL (0.0-0.2); BASO % 0.3 % (0.0-2.0); EOS # 0.7 K/uL (0.0-0.7); EOS % 3.6 % (0.0-4.0); HEMOGLOBIN 12.8 g/dL (12.0-18.0); LYMPH # 1.1 K/uL (1.0-4.3); LYMPH % 5.5 % (20.0-40.0); MEAN CELL VOLUME 87.7 fL (80.0-94.0); MEAN CORPUSCULAR HEMOGLOBIN 29.2 pg (27.0-31.0); MEAN CORPUSCULAR HGB CONC 33.3 g/dL (33.0-37.0); MEAN PLATELET VOLUME 11.1 fL (7.2-11.7); MONO # 1.2 K/uL (0.0-0.8); NEUT # 16.7 K/uL (1.8-7.0); NEUT % 84.6 % (50.0-75.0); PLATELET COUNT 193 K/uL (130-400); RBC 4.38 Mil/uL (4.40-5.90); RED CELL DISTRIBUTION WIDTH 13.1 % (11.5-14.5); WHITE BLOOD COUNT 19.7 K/uL (4.8-10.8)
[2018-08-22 06:42] LABS: ALB/GLOB RATIO 0.9 (1.0-2.1); ALBUMIN 3.3 g/dL (3.5-5.0); ALT/SGPT 343 U/L (21-72); AST/SGOT 221 U/L (17-59); BLOOD UREA NITROGEN 31 mg/dL (9-20); CALCIUM 8.6 mg/dl (8.6-10.4); GFR NON-AFRICAN AMERICAN > 60
--- NOTE | 2018-08-22 08:06 | CP.PCM.PN ---
Subjective - Date & Time of Evaluation Date of Evaluation: 08/22/18 Time of Evaluation: 08:00 - Subjective Subjective: Medical Attending Note: Patient seen and examined. Patient reports itchiness over the back and asking for water. Patient denies chest pain, denies palpitations, denies abdominal pain, denies nausea, denies vomitting, denies dysuria. Patient has low grade fever 100.6F. Prior cultures negative. Urine culture had cleared. D/c cipro. Rash over left groin and chest worsening. Objective - Vital Signs/Intake and Output Vital Signs (last 24 hours): Temp Pulse Resp BP Pulse Ox 100.6 F H 116 H 24 121/76 98 08/22/18 00:00 08/22/18 06:07 08/22/18 06:07 08/22/18 06:07 08/22/18 06:07 Intake and Output: 08/22/18 08/22/18 06:59 18:59 Intake Total 500 Output Total 400 Balance 100 - Medications Medications: Current Medications Folic Acid (Folic Acid) 1 mg PO DAILY [facility] Last Admin: 08/21/18 09:59 Dose: 1 mg Hydrocortisone (Cortizone 0.5% Cream) 1 applic TOP PRN [facility] Last Admin: 08/21/18 18:27 Dose: 1 applic Ciprofloxacin (Cipro 400mg/200ml Dsw) 400 mg in 200 mls @ 190.476 mls/hr IVPB Q12H [facility]; Protocol Stop: 08/23/18 22:01 Last Admin: 08/21/18 21:23 Dose: 190.476 mls/hr Lactobacillus Acidophilus (Bacid Acidophilus) 1 cap PO BID [facility] Last Admin: 08/21/18 17:54 Dose: 1 cap Metoprolol Tartrate (Lopressor) 5 mg IVP Q6H PRN PRN Reason: Systolic Blood Pressure >160 Metoprolol Tartrate (Lopressor) 25 mg PO BID [facility] Last Admin: 08/21/18 17:54 Dose: 25 mg Multivitamins (Hexavitamin) 1 tab PO DAILY [facility] Last Admin: 08/21/18 09:59 Dose: 1 tab Pantoprazole Sodium (Protonix Ec Tab) 40 mg PO DAILY [facility] Last Admin: 08/21/18 09:59 Dose: 40 mg Polyethylene Glycol (Miralax) 17 gm PO DAILY [facility] Last Admin: 08/21/18 10:00 Dose: 17 gm Rosuvastatin Calcium (Crestor) 20 mg NG HS [facility] Last Admin: 08/18/18 22:06 Dose: 20 mg Senna/Docusate Sodium (Senokot S 50 Mg-8.6 Mg) 1 tab PO BID [facility] Last Admin: 08/21/18 17:54 Dose: 1 tab Thiamine HCl (Vitamin B1 Tab) 100 mg PO DAILY [facility] Last Admin: 08/21/18 09:59 Dose: 100 mg - Labs Labs: 08/22/18 06:15 08/22/18 06:12 PT 17.1 SECONDS (9.7-12.2) H 08/20/18 06:00 INR 1.6 08/20/18 06:00 APTT 35 SECONDS (21-34) H 08/20/18 06:00 - Constitutional Appears: Non-toxic, No Acute Distress - Head Exam Head Exam: NORMAL INSPECTION - Eye Exam Eye Exam: EOMI - ENT Exam ENT Exam: Mucous Membranes Moist - Respiratory Exam Respiratory Exam: Clear to Ausculation Bilateral, NORMAL BREATHING PATTERN. absent: Rales, Rhonchi, Wheezes - Cardiovascular Exam Cardiovascular Exam: Tachycardia, +S1, +S2 - GI/Abdominal Exam GI & Abdominal Exam: Soft, Normal Bowel Sounds. absent: Distended, Firm, Guarding, Rigid, Tenderness, Rebound - Neurological Exam Neurological Exam: Alert, Awake, Oriented x3 - Skin Skin Exam: Dry, Intact, Normal Color, Rash (over the left groin, and left chest pain, macupapular), Warm Assessment and Plan (1) Arterial ischemic stroke, MCA (middle cerebral artery), right, acute Status: Acute (2) ETOH abuse Status: Chronic (3) Impaired glucose tolerance Status: Acute (4) Lipid disorder Status: Acute (5) Leukocytosis Status: Acute (6) Prophylactic measure Status: Acute Attending/Attestation - Attestation I have personally seen and examined this patient.: Yes I have fully participated in the care of the patient.: Yes I have reviewed all pertinent clinical information, including history, physical exam and plan: Yes Notes (Text): 1) Pulmonary embolism and Lower deep vein thrombosis * Tachycardia, elevated D-dimer * CT Angio (08/19) showed for extensive pulmonary thromboembolism * Venous doppler: extensive left lower extremity DVT (affected from stroke) * Patient had hemorrhagic conversion from ischemic MCA stroke * we have ordered for protein c/protein s, antiphospholid, factor leiden, anticardiolipin, lupus workup * patient not eligible for TPA (due to hemorrhagic stroke); patient is 10 days out from stroke. * Vascular surgery consulted for IVC filter * completed 08/20/18 * Discussed with ICU today, no anticoagulation in light of latest CT finding. 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 Assessment & Plan: * Neurosurgery on board-->no intervention * neurology on board-->not candidate for tpa/nor thrombectomy per neuro notes * Seizure precautions * aspiration precautions * hold statin secondary to LFTs * aspirin held due to hemorrhagic conversion * Anticoagulation held given latest CT finding * Antithrombin III, Factor V Leidin, Lupus, Antiphospholipid, Protein S, Protein C, Prothrombin Gene pending Imaging: * CT Head (08/11/18): large on MCA branch territory infarct involving right basal ganglia and right posterior frotnoparietal region extending to vertex with mass effect with overlying sulcal effacement, compression of the right lateral ventricle and shift of the septum pellucidum from right to left lateral ventricle suggesting mild early compressive effects at the level of left foramen of Garza. No definitive evidence of acute intracranial hemorrhage. * CT head and neck: no evidence of occlusion, dissection or significatn stenosis of the cervical caroitd or vertebral circulation. mild atheroscelroritc plauqe changes seen both cartoid siphons. no evidence of large aneurysm nor vascular malformation. * CT head (08/12/18); hemorrhage conversion of known large right MCA territoty infarction with local regional mass effect, diffuse cerenral edema, and 11mm midline from right to left. interval development of right SOTO territory i nfarction involving the paramedian frontal lobe. * CT Head (08/15/18): relatively large right MCA territory infarct again with questionable hemorrhage conversion changes. Mild mass effect with overlying sulcal effacement and compression of the right lateral ventricle lower shift of the spetum pellucidum from left to right by approximately 11mm. Questionable hemorrhagic conversion * Brain MRI (08/15/18): Relatively large subacute right MCA territory infarct with areas of hemorrhage in the basal ganglkia and right posterio frontoparietal watershed zone as described. persistent mass effect with com pression of the right lateral ventricle and right to left midline shift with septum pellucidium approximately 11mm to left of midline. Mild on dilatation left lateral ventricle due to mild compressive effects at level of left foramen of monro. * CT head (08/20/18): interval evolution of large right MCA territory hemorrhagic infarction with mass effect and effacement of the right cerebral cortical sulci, right lateral ventricle and 10 midline shift from right to left. no significant interval change. Status: Acute (2) ETOH abuse Assessment & Plan: * Out of window for withdrawal * Thiamine 100mg PO daily * Folic acid 1 mg PO daily * MVI 1 tab PO daily Status: Chronic (3) Impaired glucose tolerance Assessment & Plan: * will need monitoring of his sugars * repeat a1c in one year to prevent overt diabetes Status: Acute (4) Lipid disorder Assessment & Plan: * elevated cholestrol: 271 * LDL: 184 * HDL: 59 * T * held crestor 20mg PO HS given elevated LFTs (5) Leukocytosis Prior urinary tract infection Assessment & Plan: * Blood culture (08/19/18): no growth after 48 hours X2 * Urine culture (08/19/18): No growth * Procalcitonin: low * Ciprofloxacin 400mg IVQ12H (started 08/18/18) to complete 08/23/18 d/c cipro * Bacid 1 tab PO BID * Prior Blood culture (08/12/18): no growth after 5 days (6) Tachycardia Assessment & Plan: * patient has extensive PE noted on CT angio and Left lower DVT * repeat echo given right heart strain noted on Ct angio * Pending * Echo bubble (08/13/18): limited; negative study; no evidence inter-cavitary shunt. * Echo (08/14/18): normal LV systolic function, normal chamber size, trace to mild TR * Start Lopressor 25mg PO BID (7) Transaminitis Assessment & Plan: * d/c tylenol secondary to transaminitis * Abdominal US (08/19/18): no significant or acute findings to account for/related to clinical presentation * hepatitis panel: negative * hold statin given elevated in LFTs * Improving (8) Constipation Assessment & Plan: * Docusate sodium/senna 1 tab PO BID * Start Miralax daily * Dulolax suppository (9) Hypernatremia Assessment & Plan: * normalized (10) Postoperative Fever Assessment & Plan: * s/p IVC filter 08/20/18 * Tmax: 100.6F * Patient is on Cipro to cover for UTI to finish 08/23/18 * d/c cipro today * Start Incentive Spirometry (11) Hives Assessment & Plan: * Noted over the left side of groin and left side of chest * Patient start on Hydrocortisone topical as needed * Prednisone 40mg PO daily X3 days * Benadryl 25mg PO Q8H * d/c cipro (12) Prophylactic measure Assessment & Plan: * chemical anticoagulation contraindicated in light of hemorrhagic conversion of MCA stroke * Correct phone number of son: Yayo at [phone] * PT/OT eval * Aspiration precautions * Seizure precautions * s/p IVC filter 08/20/18 * s/p PICC 08/19/18 * SCDS only to right lower extremity; has DVT in L DVT * Protonix 40mg PO daily
[2018-08-22 08:55] LABS: BANDS 2 % (0-2); EOSINOPHIL 1 % (0-4); LYMPHOCYTE 7 % (20-40); MONOCYTE 6 % (0-10); NEUTROPHIL 84 % (50-75); TOTAL CELLS COUNTED 100
[2018-08-22 08:56] LABS: ANISOCYTOSIS SLIGHT; LARGE PLATELETS PRESENT; PLATELET ESTIMATE NORMAL (NORMAL); TOXIC GRANULATION PRESENT
[2018-08-22 08:57] LABS: HYPOCHROMIC SLIGHT; POLYCHROMIC SLIGHT
[2018-08-22] MEDS: Lactobacillus Acidophilus 500 MU Cap PO SCH ×2 (10:24→18:22)
[2018-08-22] MEDS: POLYETHYLENE GLYCOL 3350 17 GM/Dose PACKET PO SCH (10:25)
[2018-08-22] MEDS: Docusate-Senna 50 mg-8.6 mg Tab PO SCH ×2 (10:26→18:22)
[2018-08-22] MEDS: Multiple Vitamins Tab PO SCH (10:26)
[2018-08-22] MEDS: Pantoprazole 40 mg EC Tab PO SCH (10:26)
--- NOTE | 2018-08-22 11:46 | CP.PCM.PN ---
Subjective - Date & Time of Evaluation Date of Evaluation: 08/22/18 Time of Evaluation: 11:43 - Subjective Subjective: Patient admitted to ICU for ICH/CVA. Patient awake, not able to move left arm and leg, (+)rash mostly back and extremitites, no anterior abdomen Objective - Vital Signs/Intake and Output Vital Signs (last 24 hours): Temp Pulse Resp BP Pulse Ox 100.6 F H 116 H 24 121/76 98 08/22/18 00:00 08/22/18 06:07 08/22/18 06:07 08/22/18 06:07 08/22/18 06:07 Intake and Output: 08/22/18 08/22/18 06:59 18:59 Intake Total 500 Output Total 400 Balance 100 - Medications Medications: Current Medications Diphenhydramine HCl (Benadryl) 25 mg PO Q8H [facility] Last Admin: 08/22/18 09:00 Dose: 25 mg Folic Acid (Folic Acid) 1 mg PO DAILY [facility] Last Admin: 08/22/18 10:25 Dose: 1 mg Hydrocortisone (Cortizone 0.5% Cream) 1 applic TOP PRN [facility] Last Admin: 08/21/18 18:27 Dose: 1 applic Lactobacillus Acidophilus (Bacid Acidophilus) 1 cap PO BID [facility] Last Admin: 08/22/18 10:24 Dose: 1 cap Methylprednisolone (Solu-Medrol) 125 mg IV ONCE ONE Stop: 08/22/18 11:43 Methylprednisolone (Solu-Medrol) 40 mg IVP Q8H [facility] Stop: 08/24/18 03:46 Metoprolol Tartrate (Lopressor) 5 mg IVP Q6H PRN PRN Reason: Systolic Blood Pressure >160 Metoprolol Tartrate (Lopressor) 50 mg PO BID [facility] Last Admin: 08/22/18 10:25 Dose: 50 mg Multivitamins (Hexavitamin) 1 tab PO DAILY [facility] Last Admin: 08/22/18 10:26 Dose: 1 tab Pantoprazole Sodium (Protonix Ec Tab) 40 mg PO DAILY [facility] Last Admin: 08/22/18 10:26 Dose: 40 mg Polyethylene Glycol (Miralax) 17 gm PO DAILY [facility] Last Admin: 08/22/18 10:25 Dose: 17 gm Rosuvastatin Calcium (Crestor) 20 mg NG HS [facility] Last Admin: 08/18/18 22:06 Dose: 20 mg Senna/Docusate Sodium (Senokot S 50 Mg-8.6 Mg) 1 tab PO BID [facility] Last Admin: 08/22/18 10:26 Dose: 1 tab Thiamine HCl (Vitamin B1 Tab) 100 mg PO DAILY [facility] Last Admin: 08/22/18 10:26 Dose: 100 mg - Labs Labs: 08/22/18 06:15 08/22/18 06:12 PT 17.1 SECONDS (9.7-12.2) H 08/20/18 06:00 INR 1.6 08/20/18 06:00 APTT 35 SECONDS (21-34) H 08/20/18 06:00 Assessment and Plan - Assessment and Plan (Free Text) Assessment: ICH/CVA: hemorrahgic CVA: avoid antiplatelets, avoid anticoagulation, keep SBP <120, hold statin as ALt high -BP: continue anti-hypertensive -oral diet: tolerating oral -continue SCD and protonix -Leukocytosis:liekly 2nd steroids, all cultures NGSF, afebrile -rash: mostly on back , etiology unknown, steroids started, + benadryl, continue to monitor if worsen obtain derm eval Patient remains hemodynamically stable. d/w ICU team PT/OT will benefit from physical therapy d/c all foleys, no central line aspiration precautions
--- NOTE | 2018-08-22 14:59 | CP.PCM.PN ---
Subjective - Date & Time of Evaluation Date of Evaluation: 08/22/18 Time of Evaluation: 14:55 - Subjective Subjective: Mr. Aguayo was seen and examined today at bedside in the ICU. He continues to have notable left side hemiplegia, anesthesia and some neglect. There were no acute events overnight. He denied headache, nausea, visual changes, chest pain, abdominal pain, new weakness or loss of function. Objective - Vital Signs/Intake and Output Vital Signs (last 24 hours): Temp Pulse Resp BP Pulse Ox 100.6 F H 99 H 19 99/75 L 97 08/22/18 00:00 08/22/18 12:00 08/22/18 12:00 08/22/18 11:07 08/22/18 11:07 Intake and Output: 08/22/18 08/22/18 06:59 18:59 Intake Total 500 Output Total 400 Balance 100 - Medications Medications: Current Medications Diphenhydramine HCl (Benadryl) 25 mg PO Q8H [facility] Last Admin: 08/22/18 09:00 Dose: 25 mg Folic Acid (Folic Acid) 1 mg PO DAILY [facility] Last Admin: 08/22/18 10:25 Dose: 1 mg Hydrocortisone (Cortizone 0.5% Cream) 1 applic TOP PRN [facility] Last Admin: 08/21/18 18:27 Dose: 1 applic Lactobacillus Acidophilus (Bacid Acidophilus) 1 cap PO BID [facility] Last Admin: 08/22/18 10:24 Dose: 1 cap Methylprednisolone (Solu-Medrol) 40 mg IVP Q8H [facility] Stop: 08/24/18 12:01 Metoprolol Tartrate (Lopressor) 5 mg IVP Q6H PRN PRN Reason: Systolic Blood Pressure >160 Metoprolol Tartrate (Lopressor) 50 mg PO BID [facility] Last Admin: 08/22/18 10:25 Dose: 50 mg Multivitamins (Hexavitamin) 1 tab PO DAILY [facility] Last Admin: 08/22/18 10:26 Dose: 1 tab Pantoprazole Sodium (Protonix Ec Tab) 40 mg PO DAILY [facility] Last Admin: 08/22/18 10:26 Dose: 40 mg Polyethylene Glycol (Miralax) 17 gm PO DAILY [facility] Last Admin: 08/22/18 10:25 Dose: 17 gm Rosuvastatin Calcium (Crestor) 20 mg NG HS [facility] Last Admin: 08/18/18 22:06 Dose: 20 mg Senna/Docusate Sodium (Senokot S 50 Mg-8.6 Mg) 1 tab PO BID [facility] Last Admin: 08/22/18 10:26 Dose: 1 tab Thiamine HCl (Vitamin B1 Tab) 100 mg PO DAILY [facility] Last Admin: 08/22/18 10:26 Dose: 100 mg - Labs Labs: 08/22/18 06:15 08/22/18 06:12 PT 17.1 SECONDS (9.7-12.2) H 08/20/18 06:00 INR 1.6 08/20/18 06:00 APTT 35 SECONDS (21-34) H 08/20/18 06:00 - Neurological Exam Neurological Exam: Alert, Awake, CN II-XII Intact, Oriented x3 Neuro motor strength exam: Left Upper Extremity: 0, Right Upper Extremity: 5, Left Lower Extremity: 0, Right Lower Extremity: 5 Assessment and Plan (1) Stroke Assessment & Plan: Continue current management and repeat non-contrast CT head tomorrow to follow hemorrhagic conversion. I recommend tapering off steroids. Thank you. Status: Acute
[2018-08-22] MEDS: MethylPREDNISolone 40 mg Vial IVP SCH (19:44)
[2018-08-23] MEDS: MethylPREDNISolone 40 mg Vial IVP SCH ×3 (03:43→20:04)
[2018-08-23 03:48] LABS: B2 GLYCOPROTEIN I AB(IGA) 17 SAU (<=20); B2 GLYCOPROTEIN I AB(IGG) <9 SGU (<=20); B2 GLYCOPROTEIN I AB(IGM) <9 SMU (<=20)
[2018-08-23 06:31] LABS: BASO % 0.2 % (0.0-2.0); HEMOGLOBIN 11.9 g/dL (12.0-18.0); LYMPH # 0.9 K/uL (1.0-4.3); LYMPH % 4.8 % (20.0-40.0); MEAN CELL VOLUME 87.1 fL (80.0-94.0); MEAN CORPUSCULAR HEMOGLOBIN 28.6 pg (27.0-31.0); MEAN CORPUSCULAR HGB CONC 32.9 g/dL (33.0-37.0); MEAN PLATELET VOLUME 10.6 fL (7.2-11.7); MONO # 0.6 K/uL (0.0-0.8); MONO % 3.5 % (0.0-10.0); NEUT # 16.8 K/uL (1.8-7.0); NEUT % 91.5 % (50.0-75.0); PLATELET COUNT 246 K/uL (130-400); RBC 4.16 Mil/uL (4.40-5.90); RED CELL DISTRIBUTION WIDTH 13.2 % (11.5-14.5); WHITE BLOOD COUNT 18.4 K/uL (4.8-10.8)
[2018-08-23 06:52] LABS: ALB/GLOB RATIO 0.8 (1.0-2.1); ALBUMIN 3.3 g/dL (3.5-5.0); ALT/SGPT 523 U/L (21-72); AST/SGOT 363 U/L (17-59); BLOOD UREA NITROGEN 32 mg/dL (9-20); CALCIUM 8.6 mg/dl (8.6-10.4); GFR NON-AFRICAN AMERICAN > 60
--- NOTE | 2018-08-23 07:24 | CP.PCM.PN ---
<Olga Lidia Garland - Last Filed: 08/23/18 18:42> Subjective - Date & Time of Evaluation Date of Evaluation: 08/23/18 Time of Evaluation: 09:00 - Subjective Subjective: PGY-1 Olga Lidia Garland D.O. Medicine progress note for Dr. Norton's service: Patient was seen and examined this morning. he states he feels okay. He is not eating much because he does not to go to the bathroom while in bed. He denies pain. L arm and leg are still paralyzed. he complains of some itching where he has rash on chest, back, and groin. Objective - Vital Signs/Intake and Output Vital Signs (last 24 hours): Temp Pulse Resp BP Pulse Ox 98 F 84 17 117/79 96 08/23/18 04:00 08/23/18 05:07 08/23/18 05:07 08/23/18 05:07 08/23/18 04:00 Intake and Output: 08/23/18 08/23/18 06:59 18:59 Intake Total 300 Output Total 500 Balance -200 - Medications Medications: Current Medications Diphenhydramine HCl (Benadryl) 25 mg PO Q8H [facility] Last Admin: 08/23/18 00:09 Dose: 25 mg Folic Acid (Folic Acid) 1 mg PO DAILY [facility] Last Admin: 08/22/18 10:25 Dose: 1 mg Hydrocortisone (Cortizone 0.5% Cream) 1 applic TOP PRN [facility] Last Admin: 08/21/18 18:27 Dose: 1 applic Lactobacillus Acidophilus (Bacid Acidophilus) 1 cap PO BID [facility] Last Admin: 08/22/18 18:22 Dose: 1 cap Methylprednisolone (Solu-Medrol) 40 mg IVP Q8H [facility] Stop: 08/24/18 12:01 Last Admin: 08/23/18 03:43 Dose: 40 mg Metoprolol Tartrate (Lopressor) 5 mg IVP Q6H PRN PRN Reason: Systolic Blood Pressure >160 Metoprolol Tartrate (Lopressor) 50 mg PO BID [facility] Last Admin: 08/22/18 18:22 Dose: 50 mg Multivitamins (Hexavitamin) 1 tab PO DAILY [facility] Last Admin: 08/22/18 10:26 Dose: 1 tab Pantoprazole Sodium (Protonix Ec Tab) 40 mg PO DAILY [facility] Last Admin: 08/22/18 10:26 Dose: 40 mg Polyethylene Glycol (Miralax) 17 gm PO DAILY [facility] Last Admin: 08/22/18 10:25 Dose: 17 gm Rosuvastatin Calcium (Crestor) 20 mg NG HS [facility] Last Admin: 08/18/18 22:06 Dose: 20 mg Senna/Docusate Sodium (Senokot S 50 Mg-8.6 Mg) 1 tab PO BID [facility] Last Admin: 08/22/18 18:22 Dose: 1 tab Thiamine HCl (Vitamin B1 Tab) 100 mg PO DAILY [facility] Last Admin: 08/22/18 10:26 Dose: 100 mg - Labs Labs: 08/23/18 06:23 08/23/18 06:20 PT 17.1 SECONDS (9.7-12.2) H 08/20/18 06:00 INR 1.6 08/20/18 06:00 APTT 35 SECONDS (21-34) H 08/20/18 06:00 - Constitutional Appears: Non-toxic, No Acute Distress - Head Exam Head Exam: ATRAUMATIC, NORMAL INSPECTION - Eye Exam Eye Exam: EOMI, Normal appearance, PERRL - ENT Exam ENT Exam: Mucous Membranes Moist - Neck Exam Neck Exam: Normal Inspection - Respiratory Exam Respiratory Exam: Clear to Ausculation Bilateral, NORMAL BREATHING PATTERN - Cardiovascular Exam Cardiovascular Exam: REGULAR RHYTHM, +S1, +S2 - GI/Abdominal Exam GI & Abdominal Exam: Distended, Soft, Tenderness. absent: Guarding, Mass, Rebound - Rectal Exam Rectal Exam: Deferred - Extremities Exam Extremities Exam: Normal Inspection Additional comments: LUE and LLE paralysis - Back Exam Additional comments: maculopapular rash on L back- improving - Neurological Exam Neurological Exam: Alert, Awake, Oriented x3 Neuro motor strength exam: Left Upper Extremity: 0, Right Upper Extremity: 5, Left Lower Extremity: 0, Right Lower Extremity: 5 - Psychiatric Exam Psychiatric exam: Normal Affect, Normal Mood - Skin Skin Exam: Dry, Intact, Normal Color, Rash (maculopapular on L chest and L back- improving), Warm Assessment and Plan - Assessment and Plan (Free Text) Assessment: Patient is a 52 yo male with a PMH of gastric ulcers who presented with L-side paralysis. Found to have ischemic stroke then hemorrhagic conversion- suspect embolic stroke 2/ Afib 2/2 alcohol. MRI on 08/14 showed large R MCA infarct and basal ganglia and posterior frontoparietal hemorrhagic with 11 mm midline shift. Patient continues to have tachycardia and fevers. Possible etiologies- central fever s/p CVA, HCAP/aspiration PNA, PE/DVT. 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 Neurology okay to start ppx anticoagualtion, hold antiplatelets. Plan: Hemorrhagic conversion of R MCA ischemic CVA- suspect embolic 2/2 Afib 2/2 alcohol use - Repeated CT head continue to show evolution and increase of bleed - Most recent CT head: Continued evolution hemorrhagic conversion changes of a relatively large right MCA territory branch infarct. Persistent mass effect with compression of overlying sulci and right lateral ventricle with mild [id number] midline shift. No new hemorrhages. Persistent minimal dilatation left lateral ventricle. - MRI brain: - Aspiration precautions - Hold anticoagulation - Crestor 20 mg PO QHS - Lipid panel: choles 271, LDL 184, HDL 59, TG 100 - EKG: sinus tachycardia - Tachycardia since resolved with meds - Echo with bubble study: no thrombus, no PFO - Neurosurgery consulted (Naomy)- no intervention - Neurology consulted (Shavonne/Dain)- ppx anticoag okay, hold antiplatelets - Cardiology consulted (Neal)- no need for DAMIEN - PT/OT- recommend acute rehab - [employer] consulted PE and DVT - D-dimer elevated (972) - CTA chest: extensive pulmonary thromboembolism - LE Dopplers: extensive left lower extremity DVT - Hold anticoagulation - IVC filter 08/20 - Hypercoagulable work-up- so far negative - Hem/onc consulted (Mariola) - Vascular surgery consulted (Shyla) Rash- consistent with urticaria - Topical Benadryl - Topical cortizone 0,5% - Solu-medrol taper Sinus tachycardia, fevers, improving- suspect 2/2 PE/DVT +/- central fevers 2/2 CVA - Most recent fever 100.6 on 112/2 8 AM - Procal low (0.12) - EKG: sinus tachycardia (130s)- resolved, HR now 80s sinus - Blood Cx no growth - Repeat no growth - Echo: EF 60-65%, no abnormalities - D-dimer elevated (4572) - CTA chest: extensive pulmonary thromboembolism - LE Dopplers: extensive left lower extremity DVT - Lopressor 50 mg PO BID - Lopressor 5 mg IV Q6H PRN Transaminitis - Discontinue Tylenol, avoid hepatotoxic drugs - Abd u/s pending - Hepatitis panel negative UTI - Urine Cx: Enterococcus faecalis - Repeat no growth - Finished 5 day course of Cipro 400 mg IV Q12H - Repeat UA, Cx negative PNA- HCAP vs aspiration - CXR: Mild venous congestion. Patchy increased markings at the left lung base with small left pleural effusion. Small nodular density projects over the left lung apex. Cardiomegaly. - Start Vancomycin 1 g IV Q12H 08/19 - F/u trough - Start Zosyn 3. 08/19 - Lactobacillus BID Alcohol use disorder - MV daily - Thiamine 100 mg PO daily - Folate 1 g PO daily Constipation, improving - Senakot BID - Miralax daily PRN Ppx: VTE: contraindicated, only SCD to RLE GI: PTX 40 mg PO daily Case was discussed with attending, Dr. Norton. <Mariel Norton V - Last Filed: 08/24/18 08:34> Objective - Vital Signs/Intake and Output Vital Signs (last 24 hours): Temp Pulse Resp BP Pulse Ox 98 F 78 17 114/73 96 08/24/18 04:00 08/24/18 04:08 08/24/18 04:08 08/24/18 04:08 08/24/18 04:00 Intake and Output: 08/24/18 08/24/18 06:59 18:59 Intake Total 100 Output Total 1600 Balance -1500 - Medications Medications: Current Medications Folic Acid (Folic Acid) 1 mg PO DAILY [facility] Last Admin: 08/23/18 10:03 Dose: 1 mg Hydrocortisone (Cortizone 0.5% Cream) 1 applic TOP PRN [facility] Last Admin: 08/21/18 18:27 Dose: 1 applic Lactobacillus Acidophilus (Bacid Acidophilus) 1 cap PO BID [facility] Last Admin: 08/23/18 17:48 Dose: 1 cap Methylprednisolone (Solu-Medrol) 40 mg IVP Q8H [facility] Stop: 08/24/18 12:01 Last Admin: 08/24/18 04:00 Dose: 40 mg Metoprolol Tartrate (Lopressor) 5 mg IVP Q6H PRN PRN Reason: Systolic Blood Pressure >160 Metoprolol Tartrate (Lopressor) 50 mg PO BID [facility] Last Admin: 08/23/18 17:48 Dose: 50 mg Multivitamins (Hexavitamin) 1 tab PO DAILY [facility] Last Admin: 08/23/18 10:02 Dose: 1 tab Pantoprazole Sodium (Protonix Ec Tab) 40 mg PO DAILY [facility] Last Admin: 08/23/18 10:03 Dose: 40 mg Polyethylene Glycol (Miralax) 17 gm PO DAILY PRN PRN Reason: Constipation Rosuvastatin Calcium (Crestor) 20 mg NG HS [facility] Last Admin: 08/18/18 22:06 Dose: 20 mg Senna/Docusate Sodium (Senokot S 50 Mg-8.6 Mg) 1 tab PO BID [facility] Last Admin: 08/23/18 17:48 Dose: 1 tab Thiamine HCl (Vitamin B1 Tab) 100 mg PO DAILY [facility] Last Admin: 08/23/18 10:02 Dose: 100 mg Zinc Acetate/Diphenhydramine (Benadryl 1% Zinc Acetate -0.1%) 1 cre TOP TID PRN PRN Reason: Itching / Pruritus Last Admin: 08/23/18 17:56 Dose: 1 applic - Labs Labs: 08/24/18 06:23 08/24/18 06:07 PT 17.1 SECONDS (9.7-12.2) H 08/20/18 06:00 INR 1.6 08/20/18 06:00 APTT 35 SECONDS (21-34) H 08/20/18 06:00 Assessment and Plan (1) Arterial ischemic stroke, MCA (middle cerebral artery), right, acute Status: Acute (2) ETOH abuse Status: Chronic (3) Impaired glucose tolerance Status: Acute (4) Lipid disorder Status: Acute (5) Leukocytosis Status: Acute (6) Prophylactic measure Status: Acute Attending/Attestation - Attestation I have personally seen and examined this patient.: Yes I have fully participated in the care of the patient.: Yes I have reviewed all pertinent clinical information, including history, physical exam and plan: Yes Notes (Text): This is late computer entry for 08/23/18. patient seen, examined, and case discussed with medical assistant. Patient downgraded yesterday by ICU. Patient reports he is feeling ok. He is irritated by using the bathroom very frequently. The rash over the back is improving as well as the chest and groin area. Heart rate controlled with Lopressor dose. Anticogulation contraindicated secondary to hemorrhagic conversion of ischemic Right MCA stroke. Liver function test elevated secondary to benadryl use; we will discontinue. Patient is on Solumedrol for the rash (6 doses total) and will be discontinue. Patient is off crestor given LFTs. PT/OT have seen the patient today. Will need to f/u case management and social work. Patient does not have active insurance to qualify for acute rehab.
[2018-08-23 07:53] LABS: CARDIOLIPIN AB (IGA) <11 APL (<=11); CARDIOLIPIN AB (IGG) <14 GPL (<=14); CARDIOLIPIN AB (IGM) <12 MPL (<=12)
[2018-08-23 08:23] LABS: LYMPHOCYTE 3 % (20-40); MONOCYTE 1 % (0-10); NEUTROPHIL 96 % (50-75); TOTAL CELLS COUNTED 100
[2018-08-23 08:24] LABS: PLATELET ESTIMATE NORMAL (NORMAL)
[2018-08-23] MEDS: POLYETHYLENE GLYCOL 3350 17 GM/Dose PACKET PO SCH (10:02)
[2018-08-23] MEDS: Docusate-Senna 50 mg-8.6 mg Tab PO SCH ×2 (10:02→17:48)
[2018-08-23] MEDS: Multiple Vitamins Tab PO SCH (10:02)
[2018-08-23] MEDS: Lactobacillus Acidophilus 500 MU Cap PO SCH ×2 (10:03→17:48)
[2018-08-23] MEDS: Pantoprazole 40 mg EC Tab PO SCH (10:03)
--- NOTE | 2018-08-23 15:18 | CT ---
Date of service: 08/23/2018 PROCEDURE: CT HEAD WITHOUT CONTRAST. HISTORY: Hemorrhagic cva COMPARISON: Comparison made with prior study 08/28/2018. TECHNIQUE: Axial computed tomography images were obtained through the head/brain without intravenous contrast. Radiation dose: Total exam DLP = 1184.47 mGy-cm. This CT exam was performed using one or more of the following dose reduction techniques: Automated exposure control, adjustment of the mA and/or kV according to patient size, and/or use of iterative reconstruction technique. FINDINGS: HEMORRHAGE: Interval evolution previously noted hemorrhagic conversion changes of a large right MCA territory branch infarct. Persistent mass effect with compression of overlying sulci as well as compression of the right lateral ventricle and mild [id number] midline shift estimated at approximately 7.6 mm.. No new hemorrhages.. BRAIN: No mass effect or edema. No atrophy or chronic microvascular ischemic changes. VENTRICLES: Mild compression of the right lateral ventricle as mentioned above. Slight dilatation of the left lateral ventricle due to minimal compressive effects at the left foramen of [place]ro. CALVARIUM: The calvarium appears intact. PARANASAL SINUSES: Unremarkable as visualized. No significant inflammatory changes. MASTOID AIR CELLS: Unremarkable as visualized. No inflammatory changes. OTHER FINDINGS: None. IMPRESSION: Continued evolution hemorrhagic conversion changes of a relatively large right MCA territory branch infarct. Persistent mass effect with compression of overlying sulci and right lateral ventricle with mild [id number] midline shift. No new hemorrhages. Persistent minimal dilatation left lateral ventricle.
[2018-08-23] MEDS: Diphenhydramine 1% Cream (1 oz) TOP PRN (17:56)
[2018-08-24] MEDS: MethylPREDNISolone 40 mg Vial IVP SCH ×2 (04:00→12:40)
[2018-08-24 06:30] LABS: ALB/GLOB RATIO 0.9 (1.0-2.1); ALBUMIN 3.4 g/dL (3.5-5.0); ALT/SGPT 631 U/L (21-72); AST/SGOT 409 U/L (17-59); BLOOD UREA NITROGEN 30 mg/dL (9-20); CALCIUM 8.4 mg/dl (8.6-10.4); GFR NON-AFRICAN AMERICAN > 60
[2018-08-24 06:36] LABS: HEMOGLOBIN 11.6 g/dL (12.0-18.0); LYMPH % 6.2 % (20.0-40.0); MEAN CELL VOLUME 86.7 fL (80.0-94.0); MEAN CORPUSCULAR HEMOGLOBIN 28.9 pg (27.0-31.0); MEAN CORPUSCULAR HGB CONC 33.4 g/dL (33.0-37.0); MEAN PLATELET VOLUME 10.2 fL (7.2-11.7); MONO # 0.8 K/uL (0.0-0.8); MONO % 5.3 % (0.0-10.0); NEUT # 13.6 K/uL (1.8-7.0); NEUT % 88.5 % (50.0-75.0); PLATELET COUNT 296 K/uL (130-400); RBC 4.02 Mil/uL (4.40-5.90); RED CELL DISTRIBUTION WIDTH 12.8 % (11.5-14.5); WHITE BLOOD COUNT 15.4 K/uL (4.8-10.8)
--- NOTE | 2018-08-24 08:37 | CP.PCM.PN ---
Subjective - Date & Time of Evaluation Date of Evaluation: 08/24/18 Time of Evaluation: 08:30 - Subjective Subjective: Medical Attending Note: Patient seen and examined this morning. Patient denies headache, denies chest pain, denies shortness of breathe, denies abdominal pain, denies nausea, denies vomitting, denies dysuria. Patient requesting for coffee this morning. Objective - Vital Signs/Intake and Output Vital Signs (last 24 hours): Temp Pulse Resp BP Pulse Ox 98 F 78 17 114/73 96 08/24/18 04:00 08/24/18 04:08 08/24/18 04:08 08/24/18 04:08 08/24/18 04:00 Intake and Output: 08/24/18 08/24/18 06:59 18:59 Intake Total 100 Output Total 1600 Balance -1500 - Medications Medications: Current Medications Folic Acid (Folic Acid) 1 mg PO DAILY [facility] Last Admin: 08/23/18 10:03 Dose: 1 mg Hydrocortisone (Cortizone 0.5% Cream) 1 applic TOP PRN [facility] Last Admin: 08/21/18 18:27 Dose: 1 applic Lactobacillus Acidophilus (Bacid Acidophilus) 1 cap PO BID [facility] Last Admin: 08/23/18 17:48 Dose: 1 cap Methylprednisolone (Solu-Medrol) 40 mg IVP Q8H [facility] Stop: 08/24/18 12:01 Last Admin: 08/24/18 04:00 Dose: 40 mg Metoprolol Tartrate (Lopressor) 5 mg IVP Q6H PRN PRN Reason: Systolic Blood Pressure >160 Metoprolol Tartrate (Lopressor) 50 mg PO BID [facility] Last Admin: 08/23/18 17:48 Dose: 50 mg Multivitamins (Hexavitamin) 1 tab PO DAILY [facility] Last Admin: 08/23/18 10:02 Dose: 1 tab Pantoprazole Sodium (Protonix Ec Tab) 40 mg PO DAILY [facility] Last Admin: 08/23/18 10:03 Dose: 40 mg Polyethylene Glycol (Miralax) 17 gm PO DAILY PRN PRN Reason: Constipation Rosuvastatin Calcium (Crestor) 20 mg NG HS [facility] Last Admin: 08/18/18 22:06 Dose: 20 mg Senna/Docusate Sodium (Senokot S 50 Mg-8.6 Mg) 1 tab PO BID [facility] Last Admin: 08/23/18 17:48 Dose: 1 tab Thiamine HCl (Vitamin B1 Tab) 100 mg PO DAILY [facility] Last Admin: 08/23/18 10:02 Dose: 100 mg Zinc Acetate/Diphenhydramine (Benadryl 1% Zinc Acetate -0.1%) 1 cre TOP TID PRN PRN Reason: Itching / Pruritus Last Admin: 08/23/18 17:56 Dose: 1 applic - Labs Labs: 08/24/18 06:23 08/24/18 06:07 PT 17.1 SECONDS (9.7-12.2) H 08/20/18 06:00 INR 1.6 08/20/18 06:00 APTT 35 SECONDS (21-34) H 08/20/18 06:00 - Constitutional Appears: Non-toxic, No Acute Distress - Head Exam Head Exam: NORMAL INSPECTION - Eye Exam Eye Exam: EOMI - ENT Exam ENT Exam: Mucous Membranes Moist - Respiratory Exam Respiratory Exam: Clear to Ausculation Bilateral, NORMAL BREATHING PATTERN. absent: Rales, Rhonchi, Wheezes - Cardiovascular Exam Cardiovascular Exam: REGULAR RHYTHM, +S1, +S2 - GI/Abdominal Exam GI & Abdominal Exam: Soft, Normal Bowel Sounds. absent: Distended, Firm, Guarding, Rigid, Tenderness, Rebound - Extremities Exam Extremities Exam: absent: Tenderness - Back Exam Back Exam: absent: CVA tenderness (L), CVA tenderness (R) - Neurological Exam Neurological Exam: Alert, Awake, Oriented x3 - Psychiatric Exam Psychiatric exam: Normal Affect, Normal Mood - Skin Skin Exam: Normal Color, Warm Additional comments: macupapular rash over left side of groin fading, chest, and back Assessment and Plan (1) Arterial ischemic stroke, MCA (middle cerebral artery), right, acute Status: Acute (2) ETOH abuse Status: Chronic (3) Impaired glucose tolerance Status: Acute (4) Lipid disorder Status: Acute (5) Leukocytosis Status: Acute (6) DVT (deep venous thrombosis) Status: Acute (7) Pulmonary embolism Status: Acute (8) Prophylactic measure Status: Acute Attending/Attestation - Attestation I have personally seen and examined this patient.: Yes I have fully participated in the care of the patient.: Yes I have reviewed all pertinent clinical information, including history, physical exam and plan: Yes Notes (Text): 1) Pulmonary embolism and Lower deep vein thrombosis * Tachycardia, elevated D-dimer * CT Angio (08/19) showed for extensive pulmonary thromboembolism * Venous doppler: extensive left lower extremity DVT (affected from stroke) * Patient had hemorrhagic conversion from ischemic MCA stroke * we have ordered for protein c/protein s, antiphospholid, factor leiden, anticardiolipin, lupus workup * patient not eligible for TPA (due to hemorrhagic stroke); patient is 10 days out from stroke. * Vascular surgery consulted for IVC filter * completed 08/20/18 * Discussed with ICU today, no anticoagulation in light of latest CT finding. * No scd over the left lower extremity secondary to DVT * patient started on beta omero to control tachycardia; Lopressor 25mg PO BID * Echo repeat: left ventricle systolic function is normal. EF: 60-65%, no aortic regurgitation is present. no mitral valve regurgitation, no tricuspid valve regurgitation noted, no pulmonic valvular regurgitation. 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 Assessment & Plan: * Neurosurgery on board-->no intervention * neurology on board-->not candidate for tpa/nor thrombectomy per neuro notes * Seizure precautions * aspiration precautions * hold statin secondary to LFTs * aspirin held due to hemorrhagic conversion * Anticoagulation held given latest CT finding * Antithrombin III, Factor V Leidin, Lupus, Antiphospholipid, Protein S, Protein C, Prothrombin Gene pending Imaging: * CT Head (08/11/18): large on MCA branch territory infarct involving right basal ganglia and right posterior frotnoparietal region extending to vertex with mass effect with overlying sulcal effacement, compression of the right lateral ventricle and shift of the septum pellucidum from right to left late ral ventricle suggesting mild early compressive effects at the level of left foramen of Garza. No definitive evidence of acute intracranial hemorrhage. * CT head and neck: no evidence of occlusion, dissection or significatn stenosis of the cervical caroitd or vertebral circulation. mild atheroscelroritc plauqe changes seen both cartoid siphons. no evidence of large aneurysm nor vascular malformation. * CT head (08/12/18); hemorrhage conversion of known large right MCA territoty infarction with local regional mass effect, diffuse cerenral edema, and 11mm midline from right to left. interval development of right SOTO territory infarction involving the paramedian frontal lobe. * CT Head (08/15/18): relatively large right MCA territory infarct again with questionable hemorrhage conversion changes. Mild mass effect with overlying sulcal effacement and compression of the right lateral ventricle lower shift of the spetum pellucidum from left to right by approximately 11mm. Questionable hemorrhagic conversion * Brain MRI (08/15/18): Relatively large subacute right MCA territory infarct with areas of hemorrhage in the basal ganglkia and right posterio frontoparietal watershed zone as described. persistent mass effect with compression of the right lateral ventricle and right to left midline shift with septum pellucidium approximately 11mm to left of midline. Mild on dilatation left lateral ventricle due to mild compressive effects at level of left foramen of monro. * CT head (08/20/18): interval evolution of large right MCA territory hemorrhagic infarction with mass effect and effacement of the right cerebral cortical sulci, right lateral ventricle and 10 midline shift from right to le ft. no significant interval change. * CT head (08/23/18): continued evolution hemorrhage conversion changes of a relatively large right MCA territory branch infarct. Persisteent mass effect with compression of overlying sulci and right lateral ventricle with mild right to left midline shift. No new hemorrhages. Persistent minimal dilatation left lateral ventricle. Status: Acute (2) ETOH abuse Assessment & Plan: * Out of window for withdrawal * Thiamine 100mg PO daily * Folic acid 1 mg PO daily * MVI 1 tab PO daily Status: Chronic (3) Impaired glucose tolerance Assessment & Plan: * will need monitoring of his sugars * repeat a1c in one year to prevent overt diabetes Status: Acute (4) Lipid disorder Assessment & Plan: * elevated cholestrol: 271 * LDL: 184 * HDL: 59 * T * held crestor 20mg PO HS given elevated LFTs (5) Leukocytosis Prior urinary tract infection Assessment & Plan: * Blood culture (08/19/18): no growth after 4 days X2 * Urine culture (08/19/18): No growth * Procalcitonin: low * Ciprofloxacin 400mg IVQ12H (started 08/18/18) to complete 08/23/18 d/c cipro * Bacid 1 tab PO BID * Prior Blood culture (08/12/18): no growth after 5 days (6) Tachycardia Assessment & Plan: * patient has extensive PE noted on CT angio and Left lower DVT * repeat echo given right heart strain noted on Ct angio * Pending * Echo bubble (08/13/18): limited; negative study; no evidence inter-cavitary shunt. * Echo (08/14/18): normal LV systolic function, normal chamber size, trace to mild TR * c/w Lopressor 50mg PO BID (7) Transaminitis Assessment & Plan: * d/c tylenol secondary to transaminitis * Abdominal US (08/19/18): no significant or acute findings to account for/rela li to clinical presentation * hepatitis panel: negative * hold statin given elevated in LFTs (8) Constipation (resolved) Assessment & Plan: * Docusate sodium/senna 1 tab PO BID * Miralax daily PRN * Went 08/23/18 (9) Hypernatremia Assessment & Plan: * normalized (10) Postoperative Fever Assessment & Plan: * s/p IVC filter 08/20/18 * Without fever since 08/22/18 * Patient is on Cipro to cover for UTI to finish 08/23/18 (11) Hives Assessment & Plan: * Noted over the left side of groin and left side of chest and back * on Hydrocortisone topical as needed * off Benadryl 25mg PO Q8H secondary to LFts * d/c cipro * Patient to complete 6 doses of Solumedrol total (12) Prophylactic measure Assessment & Plan: * chemical anticoagulation contraindicated in light of hemorrhagic conversion of MCA stroke * Correct phone number of sonRafa Zee at [phone] * PT/OT eval * Aspiration precautions * Seizure precautions * s/p IVC filter 08/20/18 * s/p PICC 08/19/18 * SCDS only to right lower extremity; has DVT in L DVT * Protonix 40mg PO daily Disposition: patient will need aggressive PT/OT for left sided weakness and immobility. He cannot be anticoagulated at this time. F/u neurology when safe for DVT ppx dosing. patient does not have insurance to qualify for acute rehab which he needs.
[2018-08-24] MEDS: Pantoprazole 40 mg EC Tab PO SCH (09:33)
[2018-08-24] MEDS: Multiple Vitamins Tab PO SCH (09:33)
[2018-08-24] MEDS: Lactobacillus Acidophilus 500 MU Cap PO SCH ×2 (09:33→17:31)
[2018-08-24] MEDS: Docusate-Senna 50 mg-8.6 mg Tab PO SCH ×2 (09:33→17:31)
[2018-08-24 09:45] LABS: TOTAL CELLS COUNTED 100
[2018-08-24 09:46] LABS: LYMPHOCYTE 6 % (20-40); MONOCYTE 5 % (0-10); NEUTROPHIL 89 % (50-75); PLATELET ESTIMATE NORMAL (NORMAL)
--- NOTE | 2018-08-24 17:19 | CP.PCM.PN ---
Subjective - Date & Time of Evaluation Date of Evaluation: 08/24/18 Time of Evaluation: 14:20 - Subjective Subjective: Neurology Consultation Follow-Up Note: Mr. Aguayo was evaluated this afternoon in the ICU, awake and alert. He is in a much better mood today and engaged willingly in the follow up interview and exam. He was also smiling and states that he is eager to go to a rehab facility to get better. He denies any new complaints today and states that he feels good. Denies headache, visual changes, dizziness, chest pain, shortness of breath, nausea/vomiting. Mr. Aguayo is status post IVC filter placement 08/20/18. Objective - Vital Signs/Intake and Output Vital Signs (last 24 hours): Temp Pulse Resp BP Pulse Ox 97.3 F L 78 17 114/73 96 08/24/18 08:00 08/24/18 04:08 08/24/18 04:08 08/24/18 04:08 08/24/18 04:00 Intake and Output: 08/24/18 08/24/18 06:59 18:59 Intake Total 100 Output Total 1600 Balance -1500 - Medications Medications: Current Medications Folic Acid (Folic Acid) 1 mg PO DAILY [facility] Last Admin: 08/24/18 09:33 Dose: 1 mg Hydrocortisone (Cortizone 0.5% Cream) 1 applic TOP PRN [facility] Last Admin: 08/21/18 18:27 Dose: 1 applic Lactobacillus Acidophilus (Bacid Acidophilus) 1 cap PO BID [facility] Last Admin: 08/24/18 09:33 Dose: 1 cap Metoprolol Tartrate (Lopressor) 5 mg IVP Q6H PRN PRN Reason: Systolic Blood Pressure >160 Metoprolol Tartrate (Lopressor) 50 mg PO BID [facility] Last Admin: 08/24/18 09:33 Dose: 50 mg Multivitamins (Hexavitamin) 1 tab PO DAILY [facility] Last Admin: 08/24/18 09:33 Dose: 1 tab Pantoprazole Sodium (Protonix Ec Tab) 40 mg PO DAILY [facility] Last Admin: 08/24/18 09:33 Dose: 40 mg Polyethylene Glycol (Miralax) 17 gm PO DAILY PRN PRN Reason: Constipation Rosuvastatin Calcium (Crestor) 20 mg NG HS [facility] Last Admin: 08/18/18 22:06 Dose: 20 mg Senna/Docusate Sodium (Senokot S 50 Mg-8.6 Mg) 1 tab PO BID [facility] Last Admin: 08/24/18 09:33 Dose: 1 tab Thiamine HCl (Vitamin B1 Tab) 100 mg PO DAILY [facility] Last Admin: 08/24/18 09:33 Dose: 100 mg Zinc Acetate/Diphenhydramine (Benadryl 1% Zinc Acetate -0.1%) 1 cre TOP TID PRN PRN Reason: Itching / Pruritus Last Admin: 08/23/18 17:56 Dose: 1 applic - Labs Labs: 08/24/18 06:23 08/24/18 06:07 PT 17.1 SECONDS (9.7-12.2) H 08/20/18 06:00 INR 1.6 08/20/18 06:00 APTT 35 SECONDS (21-34) H 08/20/18 06:00 - Constitutional Appears: Well, Non-toxic, No Acute Distress - Head Exam Head Exam: ATRAUMATIC, NORMAL INSPECTION, NORMOCEPHALIC - Eye Exam Eye Exam: EOMI, Normal appearance Pupil Exam: PERRL - ENT Exam ENT Exam: Normal Exam - Neck Exam Neck Exam: Full ROM - Respiratory Exam Respiratory Exam: NORMAL BREATHING PATTERN - Extremities Exam Extremities Exam: Pedal Edema (LLE ). absent: Full ROM (left hemiplegia and neglect) - Neurological Exam Neurological Exam: Alert, Awake, CN II-XII Intact, Oriented x3 Neuro motor strength exam: Left Upper Extremity: 0, Right Upper Extremity: 5, Left Lower Extremity: 0, Right Lower Extremity: 5 Additional comments: Sensation intact and equal bilaterally; no pronator drift to RUE. + left hemip legia, neglect. - Psychiatric Exam Psychiatric exam: Normal Affect, Normal Mood - Skin Skin Exam: Normal Color Assessment and Plan (1) Stroke Assessment & Plan: Imaging: -CT Head (08/11/18): large on MCA branch territory infarct involving right basal ganglia and right posterior frotnoparietal region extending to vertex with mass effect with overlying sulcal effacement, compression of the right lateral ventricle and shift of the septum pellucidum from right to left lateral ventricle suggesting mild early compressive effects at the level of left foramen of Garza. No definitive evidence of acute intracranial hemorrhage. -CT head and neck: no evidence of occlusion, dissection or significatn stenosis of the cervical caroitd or vertebral circulation. mild atheroscelroritc plauqe changes seen both cartoid siphons. no evidence of large aneurysm nor vascular malformation. -CT head (08/12/18); hemorrhage conversion of known large right MCA territoty infarction with local regional mass effect, diffuse cerenral edema, and 11mm midline from right to left. interval development of right SOTO territory infarction involving the paramedian frontal lobe. -CT Head (08/15/18): relatively large right MCA territory infarct again with questionable hemorrhage conversion changes. Mild mass effect with overlying sulcal effacement and compression of the right lateral ventricle lower shift of the spetum pellucidum from left to right by approximately 11mm. Questionable he morrhagic conversion -Brain MRI (08/15/18): Relatively large subacute right MCA territory infarct wi th areas of hemorrhage in the basal ganglkia and right posterio frontoparietal watershed zone as described. persistent mass effect with compression of the right lateral ventricle and right to left midline shift with septum pellucidium approximately 11mm to left of midline. Mild on dilatation left lateral ventricle due to mild compressive effects at level of left foramen of monro. -CT head (08/20/18): interval evolution of large right MCA territory hemorrhagic infarction with mass effect and effacement of the right cerebral cortical sulci, right lateral ventricle and 10 midline shift from right to left. no significant interval change. -CT head (08/23/18): continued evolution hemorrhage conversion changes of a relatively large right MCA territory branch infarct. Persisteent mass effect with compression of overlying sulci and right lateral ventricle with mild right to left midline shift. No new hemorrhages. Persistent minimal dilatation left lateral ventricle. -Mr. Aguayo is stable at this time. -Will repeat CT Head without Contrast in 1-week to evaluate the hemorrhagic conversion of his Right MCA infarct. -Hold anticoagulation for now as patient is at a high risk of re-bleeding. Mr. Aguayo has an IVC filter. -Continue aggressive PT/OT -Please notify neuro team if acute changes in condition occur. Case discussed with Dr. Marvin. Thank you for allowing us to participate in this patient's care. Status: Acute (2) Pulmonary embolism Assessment & Plan: -Mr. Aguayo is post-IVC filter placement on 08/22/18. -Further PE treatment per primary team. Status: Acute
[2018-08-25 06:40] LABS: BASO % 0.2 % (0.0-2.0); EOS # 0.4 K/uL (0.0-0.7); EOS % 3.9 % (0.0-4.0); HEMOGLOBIN 12.2 g/dL (12.0-18.0); LYMPH % 17.6 % (20.0-40.0); MEAN CELL VOLUME 86.5 fL (80.0-94.0); MEAN CORPUSCULAR HEMOGLOBIN 28.4 pg (27.0-31.0); MEAN CORPUSCULAR HGB CONC 32.9 g/dL (33.0-37.0); MEAN PLATELET VOLUME 9.3 fL (7.2-11.7); MONO % 9.1 % (0.0-10.0); NEUT # 7.8 K/uL (1.8-7.0); NEUT % 69.2 % (50.0-75.0); RBC 4.28 Mil/uL (4.40-5.90); RED CELL DISTRIBUTION WIDTH 12.9 % (11.5-14.5); WHITE BLOOD COUNT 11.3 K/uL (4.8-10.8)
[2018-08-25 06:48] LABS: PHOSPHATIDYLSERINE AB IGA <20 U/mL (<20); PHOSPHATIDYLSERINE AB IGG <10 U/mL (<10); PHOSPHATIDYLSERINE AB IGM <25 U/mL (<25)
[2018-08-25 06:51] LABS: ALB/GLOB RATIO 0.8 (1.0-2.1); ALBUMIN 3.2 g/dL (3.5-5.0); ALT/SGPT 482 U/L (21-72); AST/SGOT 194 U/L (17-59); BLOOD UREA NITROGEN 26 mg/dL (9-20); CALCIUM 8.4 mg/dl (8.6-10.4); GFR NON-AFRICAN AMERICAN > 60
[2018-08-25 07:31] LABS: INR 1.4; PROTHROMBIN TIME 15.1 SECONDS (9.7-12.2)
--- NOTE | 2018-08-25 08:57 | CP.PCM.PN ---
Objective - Vital Signs/Intake and Output Vital Signs (last 24 hours): Temp Pulse Resp BP Pulse Ox 98.5 F 81 17 104/68 97 08/25/18 04:00 08/25/18 04:08 08/25/18 04:08 08/25/18 04:08 08/25/18 04:00 Intake and Output: 08/25/18 08/25/18 06:59 18:59 Intake Total 150 Output Total 1100 Balance -950 - Medications Medications: Current Medications Folic Acid (Folic Acid) 1 mg PO DAILY [facility] Last Admin: 08/24/18 09:33 Dose: 1 mg Hydrocortisone (Cortizone 0.5% Cream) 1 applic TOP PRN [facility] Last Admin: 08/21/18 18:27 Dose: 1 applic Lactobacillus Acidophilus (Bacid Acidophilus) 1 cap PO BID [facility] Last Admin: 08/24/18 17:31 Dose: 1 cap Metoprolol Tartrate (Lopressor) 5 mg IVP Q6H PRN PRN Reason: Systolic Blood Pressure >160 Metoprolol Tartrate (Lopressor) 50 mg PO BID [facility] Last Admin: 08/24/18 17:31 Dose: 50 mg Multivitamins (Hexavitamin) 1 tab PO DAILY [facility] Last Admin: 08/24/18 09:33 Dose: 1 tab Pantoprazole Sodium (Protonix Ec Tab) 40 mg PO DAILY [facility] Last Admin: 08/24/18 09:33 Dose: 40 mg Polyethylene Glycol (Miralax) 17 gm PO DAILY PRN PRN Reason: Constipation Rosuvastatin Calcium (Crestor) 20 mg NG HS [facility] Last Admin: 08/18/18 22:06 Dose: 20 mg Senna/Docusate Sodium (Senokot S 50 Mg-8.6 Mg) 1 tab PO BID [facility] Last Admin: 08/24/18 17:31 Dose: 1 tab Thiamine HCl (Vitamin B1 Tab) 100 mg PO DAILY [facility] Last Admin: 08/24/18 09:33 Dose: 100 mg Zinc Acetate/Diphenhydramine (Benadryl 1% Zinc Acetate -0.1%) 1 cre TOP TID PRN PRN Reason: Itching / Pruritus Last Admin: 08/23/18 17:56 Dose: 1 applic - Labs Labs: 08/25/18 06:28 08/25/18 06:20 PT 15.1 SECONDS (9.7-12.2) H 08/25/18 06:28 INR 1.4 08/25/18 06:28 APTT 21 SECONDS (21-34) 08/25/18 06:28
[2018-08-25] MEDS: Diphenhydramine 1% Cream (1 oz) TOP PRN (09:00)
[2018-08-25] MEDS: Lactobacillus Acidophilus 500 MU Cap PO SCH ×2 (09:57→17:14)
[2018-08-25] MEDS: Pantoprazole 40 mg EC Tab PO SCH (09:57)
[2018-08-25] MEDS: Multiple Vitamins Tab PO SCH (09:57)
[2018-08-25] MEDS: Docusate-Senna 50 mg-8.6 mg Tab PO SCH ×2 (09:57→17:14)
--- NOTE | 2018-08-25 15:28 | CP.PCM.PN ---
Subjective - Date & Time of Evaluation Date of Evaluation: 08/25/18 Time of Evaluation: 15:00 - Subjective Subjective: Medical Attending Note: Patient seen and examined. patient denies headache, denies chest pain, denies palpitations, denies chest pain, denies abdominal pain, denies nausea, denies vomitting. patient reports low back pain. I explained to the patient I cant given him Tylenol because of his liver enzymes and I cant given him motrin or naproxen because he is recovering from a hemorrhagic stroke. I explained to him he will need aggressive rehab left upper and left lower weakness. Objective - Vital Signs/Intake and Output Vital Signs (last 24 hours): Temp Pulse Resp BP Pulse Ox 97.2 F L 100 H 21 122/87 97 08/25/18 12:00 08/25/18 13:00 08/25/18 13:00 08/25/18 10:01 08/25/18 04:00 Intake and Output: 08/25/18 08/25/18 06:59 18:59 Intake Total 150 240 Output Total 1100 900 Balance -950 -660 - Medications Medications: Current Medications Folic Acid (Folic Acid) 1 mg PO DAILY [facility] Last Admin: 08/25/18 09:57 Dose: 1 mg Hydrocortisone (Cortizone 0.5% Cream) 1 applic TOP PRN [facility] Last Admin: 08/21/18 18:27 Dose: 1 applic Lactobacillus Acidophilus (Bacid Acidophilus) 1 cap PO BID [facility] Last Admin: 08/25/18 09:57 Dose: 1 cap Metoprolol Tartrate (Lopressor) 5 mg IVP Q6H PRN PRN Reason: Systolic Blood Pressure >160 Metoprolol Tartrate (Lopressor) 50 mg PO BID [facility] Last Admin: 08/25/18 10:01 Dose: 50 mg Multivitamins (Hexavitamin) 1 tab PO DAILY [facility] Last Admin: 08/25/18 09:57 Dose: 1 tab Pantoprazole Sodium (Protonix Ec Tab) 40 mg PO DAILY [facility] Last Admin: 08/25/18 09:57 Dose: 40 mg Polyethylene Glycol (Miralax) 17 gm PO DAILY PRN PRN Reason: Constipation Rosuvastatin Calcium (Crestor) 20 mg NG HS [facility] Last Admin: 08/18/18 22:06 Dose: 20 mg Senna/Docusate Sodium (Senokot S 50 Mg-8.6 Mg) 1 tab PO BID [facility] Last Admin: 08/25/18 09:57 Dose: 1 tab Thiamine HCl (Vitamin B1 Tab) 100 mg PO DAILY [facility] Last Admin: 08/25/18 09:57 Dose: 100 mg Zinc Acetate/Diphenhydramine (Benadryl 1% Zinc Acetate -0.1%) 1 cre TOP TID PRN PRN Reason: Itching / Pruritus Last Admin: 08/23/18 17:56 Dose: 1 applic - Labs Labs: 08/25/18 06:28 08/25/18 09:29 PT 15.1 SECONDS (9.7-12.2) H 08/25/18 06:28 INR 1.4 08/25/18 06:28 APTT 21 SECONDS (21-34) 08/25/18 06:28 - Constitutional Appears: Non-toxic, No Acute Distress - Head Exam Head Exam: NORMAL INSPECTION - Eye Exam Eye Exam: EOMI - ENT Exam ENT Exam: Mucous Membranes Moist - Respiratory Exam Respiratory Exam: Clear to Ausculation Bilateral, NORMAL BREATHING PATTERN. absent: Rales, Rhonchi, Wheezes - Cardiovascular Exam Cardiovascular Exam: REGULAR RHYTHM, +S1, +S2 - GI/Abdominal Exam GI & Abdominal Exam: Soft, Normal Bowel Sounds. absent: Distended, Firm, Guarding, Rigid, Tenderness, Rebound - Extremities Exam Extremities Exam: absent: Pedal Edema, Tenderness - Neurological Exam Neurological Exam: Alert, Awake, Oriented x3 Neuro motor strength exam: Left Upper Extremity: 0, Right Upper Extremity: 5, Left Lower Extremity: 0, Right Lower Extremity: 5 - Psychiatric Exam Psychiatric exam: Normal Affect, Normal Mood - Skin Skin Exam: Dry, Intact, Normal Color, Warm Additional comments: hives over the back have faded, left groin and left chest faded Assessment and Plan (1) Arterial ischemic stroke, MCA (middle cerebral artery), right, acute Status: Acute (2) ETOH abuse Status: Chronic (3) Impaired glucose tolerance Status: Acute (4) Lipid disorder Status: Acute (5) Leukocytosis Status: Acute (6) DVT (deep venous thrombosis) Status: Acute (7) Pulmonary embolism Status: Acute (8) Prophylactic measure Status: Acute Attending/Attestation - Attestation I have personally seen and examined this patient.: Yes I have fully participated in the care of the patient.: Yes I have reviewed all pertinent clinical information, including history, physical exam and plan: Yes Notes (Text): 1) Pulmonary embolism and Lower deep vein thrombosis * Tachycardia, elevated D-dimer * CT Angio (08/19) showed for extensive pulmonary thromboembolism * Venous doppler: extensive left lower extremity DVT (affected from stroke) * Patient had hemorrhagic conversion from ischemic MCA stroke * we have ordered for protein c/protein s, antiphospholid, factor leiden, anticardiolipin, lupus workup * patient not eligible for TPA (due to hemorrhagic stroke); patient is 10 days out from stroke. * Vascular surgery consulted for IVC filter * completed 08/20/18 * Discussed with ICU and neurology, no anticoagulation * Neurology; IVC filter sufficient, repeat CT head in one week * No scd over the left lower extremity secondary to DVT * patient started on beta omero to control tachycardia; Lopressor 25mg PO BID * Echo repeat: left ventricle systolic function is normal. EF: 60-65%, no aortic regurgitation is present. no mitral valve regurgitation, no tricuspid valve regurgitation noted, no pulmonic valvular regurgitation. 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 Assessment & Plan: * Neurosurgery on board-->no intervention * neurology on board-->not candidate for tpa/nor thrombectomy per neuro notes * Seizure precautions * aspiration precautions * hold statin secondary to LFTs * aspirin held due to hemorrhagic conversion * Anticoagulation held given latest CT finding * Anticardiolipiin negative * Antiphospholipid Prothrombin Gene: negative * unable to assess at3, protein C, protein S because had had dvt ppx in past * Repeat CT head 08/30/18 Imaging: * CT Head (08/11/18): large on MCA branch territory infarct involving right basal ganglia and right posterior frotnoparietal region extending to vertex with mass effect with overlying sulcal effacement, compression of the right lateral ventricle and shift of the septum pellucidum from right to left lateral ventricle suggesting mild early compressive effects at the level of left foramen of Garza. No definitive evidence of acute intracranial hemorrhage. * CT head and neck: no evidence of occlusion, dissection or significatn stenosis of the cervical caroitd or vertebral circulation. mild atheroscelroritc plauqe changes seen both cartoid siphons. no evidence of large aneurysm nor vascular malformation. * CT head (08/12/18); hemorrhage conversion of known large right MCA territoty infarction with local regional mass effect, diffuse cerenral edema, and 11mm midline from right to left. interval development of right SOTO territory infarction involving the paramedian frontal lobe. * CT Head (08/15/18): relatively large right MCA territory infarct again with questionable hemorrhage conversion changes. Mild mass effect with overlying sulcal effacement and compression of the right lateral ventricle lower shift of the spetum pellucidum from left to right by approximately 11mm. Questionable hemorrhagic conversion * Brain MRI (08/15/18): Relatively large subacute right MCA territory infarct with areas of hemorrhage in the basal ganglkia and right posterio fronto parietal watershed zone as described. persistent mass effect with compression of the right lateral ventricle and right to left midline shift with septum pellucidium approximately 11mm to left of midline. Mild on dilatation left lateral ventricle due to mild compressive effects at level of left foramen of monro. * CT head (08/20/18): interval evolution of large right MCA territory hemorrhagic infarction with mass effect and effacement of the right cerebral cortical sulci, right lateral ventricle and 10 midline shift from right to left. no significant interval change. * CT head (08/23/18): continued evolution hemorrhage conversion changes of a relatively large right MCA territory branch infarct. Persisteent mass effect with compression of overlying sulci and right lateral ventricle with mild right to left midline shift. No new hemorrhages. Persistent minimal dilatation left lateral ventricle. Status: Acute (2) ETOH abuse Assessment & Plan: * Out of window for withdrawal * Thiamine 100mg PO daily * Folic acid 1 mg PO daily * MVI 1 tab PO daily Status: Chronic (3) Impaired glucose tolerance Assessment & Plan: * will need monitoring of his sugars * repeat a1c in one year to prevent overt diabetes Status: Acute (4) Lipid disorder Assessment & Plan: * elevated cholestrol: 271 * LDL: 184 * HDL: 59 * T * held crestor 20mg PO HS given elevated LFTs (5) Leukocytosis Prior urinary tract infection Assessment & Plan: * Blood culture (08/19/18): no growth after 5 days X2 * Urine culture (08/19/18): No growth * Procalcitonin: low * Ciprofloxacin 400mg IVQ12H (started 08/18/18) to complete 08/23/18 d/c cipro * Bacid 1 tab PO BID * Prior Blood culture (08/12/18): no growth after 5 days (6) Tachycardia Assessment & Plan: * patient has extensive PE noted on CT angio and Left lower DVT * repeat echo given right heart strain noted on Ct angio * Pending * Echo bubble (08/13/18): limited; negative study; no evidence inter-cavitary shunt. * Echo (08/14/18): normal LV systolic function, normal chamber size, trace to mild TR * c/w Lopressor 50mg PO BID (7) Transaminitis Assessment & Plan: * d/c tylenol secondary to transaminitis * Abdominal US (08/19/18): no significant or acute findings to account for/related to clinical presentation * hepatitis panel: negative * hold statin given elevated in LFTs * improving * when lfts have normalized, then restart statin (8) Constipation (resolved) Assessment & Plan: * Docusate sodium/senna 1 tab PO BID * Miralax daily PRN * Went 08/23/18 (9) Hypernatremia (resolved) Assessment & Plan: * normalized (10) Postoperative Fever (resolved) Assessment & Plan: * s/p IVC filter 08/20/18 * Without fever since 08/22/18 * Patient is on Cipro to cover for UTI to finish 08/23/18 (11) Hives (resolving) Assessment & Plan: * Noted over the left side of groin and left side of chest and back * on Hydrocortisone topical as needed * off Benadryl 25mg PO Q8H secondary to LFts * d/c cipro * Patient to complete 6 doses of Solumedrol total (12) Prophylactic measure Assessment & Plan: * chemical anticoagulation contraindicated in light of hemorrhagic conversion of MCA stroke * Correct phone number of son: Yayo at [phone] * PT/OT eval * Aspiration precautions * Seizure precautions * s/p IVC filter 08/20/18 * s/p PICC 08/19/18 * SCDS only to right lower extremity; has DVT in L DVT * Protonix 40mg PO daily Disposition: patient will need aggressive PT/OT for left sided weakness and immobility. He cannot be anticoagulated at this time per neurology. Patient will need insurance for rehab. patient will need repeat head CT per neurology 08/30/18.
[2018-08-26 05:59] LABS: BASO # 0.1 K/uL (0.0-0.2); BASO % 0.5 % (0.0-2.0); EOS # 0.6 K/uL (0.0-0.7); EOS % 4.1 % (0.0-4.0); HEMOGLOBIN 13.2 g/dL (12.0-18.0); LYMPH # 2.4 K/uL (1.0-4.3); LYMPH % 16.3 % (20.0-40.0); MEAN CELL VOLUME 86.1 fL (80.0-94.0); MEAN CORPUSCULAR HEMOGLOBIN 28.9 pg (27.0-31.0); MEAN CORPUSCULAR HGB CONC 33.5 g/dL (33.0-37.0); MEAN PLATELET VOLUME 8.7 fL (7.2-11.7); MONO # 1.2 K/uL (0.0-0.8); MONO % 7.9 % (0.0-10.0); NEUT # 10.6 K/uL (1.8-7.0); NEUT % 71.2 % (50.0-75.0); RBC 4.55 Mil/uL (4.40-5.90); RED CELL DISTRIBUTION WIDTH 12.7 % (11.5-14.5); WHITE BLOOD COUNT 14.9 K/uL (4.8-10.8)
[2018-08-26 06:13] LABS: ALB/GLOB RATIO 0.9 (1.0-2.1); ALBUMIN 3.5 g/dL (3.5-5.0); ALT/SGPT 339 U/L (21-72); AST/SGOT 108 U/L (17-59); BLOOD UREA NITROGEN 22 mg/dL (9-20); CALCIUM 8.6 mg/dl (8.6-10.4); GFR NON-AFRICAN AMERICAN > 60
--- NOTE | 2018-08-26 07:35 | CP.PCM.PN ---
<Olga Lidia Garland - Last Filed: 08/26/18 18:06> Subjective - Date & Time of Evaluation Date of Evaluation: 08/26/18 Time of Evaluation: 08:40 - Subjective Subjective: PGY-1 Olga Lidia Garland D.O. Medicine progress note for Dr. Bienvenido Roth service; Patient was seen and examined this morning. Patient was having issues with sitting up in the chair. PT was present and verbalized concern for possible L shoulder dislocation. Patient denied any pain. He still has complete motor deficit of his L arm and L leg. Objective - Vital Signs/Intake and Output Vital Signs (last 24 hours): Temp Pulse Resp BP Pulse Ox 98 F 105 H 22 117/75 93 L 08/26/18 04:00 08/26/18 04:00 08/26/18 04:00 08/26/18 04:00 08/26/18 04:00 Intake and Output: 08/26/18 08/26/18 06:59 18:59 Intake Total 200 Output Total 700 Balance -500 - Medications Medications: Current Medications Folic Acid (Folic Acid) 1 mg PO DAILY [facility] Last Admin: 08/25/18 09:57 Dose: 1 mg Hydrocortisone (Cortizone 0.5% Cream) 1 applic TOP PRN [facility] Last Admin: 08/21/18 18:27 Dose: 1 applic Lactobacillus Acidophilus (Bacid Acidophilus) 1 cap PO BID [facility] Last Admin: 08/25/18 17:14 Dose: 1 cap Metoprolol Tartrate (Lopressor) 5 mg IVP Q6H PRN PRN Reason: Systolic Blood Pressure >160 Metoprolol Tartrate (Lopressor) 50 mg PO BID [facility] Last Admin: 08/25/18 17:14 Dose: 50 mg Multivitamins (Hexavitamin) 1 tab PO DAILY [facility] Last Admin: 08/25/18 09:57 Dose: 1 tab Pantoprazole Sodium (Protonix Ec Tab) 40 mg PO DAILY [facility] Last Admin: 08/25/18 09:57 Dose: 40 mg Polyethylene Glycol (Miralax) 17 gm PO DAILY PRN PRN Reason: Constipation Rosuvastatin Calcium (Crestor) 20 mg NG HS [facility] Last Admin: 08/18/18 22:06 Dose: 20 mg Senna/Docusate Sodium (Senokot S 50 Mg-8.6 Mg) 1 tab PO BID [facility] Last Admin: 08/25/18 17:14 Dose: 1 tab Thiamine HCl (Vitamin B1 Tab) 100 mg PO DAILY [facility] Last Admin: 08/25/18 09:57 Dose: 100 mg Zinc Acetate/Diphenhydramine (Benadryl 1% Zinc Acetate -0.1%) 1 cre TOP TID PRN PRN Reason: Itching / Pruritus Last Admin: 08/25/18 09:00 Dose: 1 applic - Labs Labs: 08/26/18 05:57 08/26/18 05:57 PT 15.1 SECONDS (9.7-12.2) H 08/25/18 06:28 INR 1.4 08/25/18 06:28 APTT 21 SECONDS (21-34) 08/25/18 06:28 - Constitutional Appears: No Acute Distress, Confused - Head Exam Head Exam: ATRAUMATIC, NORMAL INSPECTION - Eye Exam Eye Exam: Normal appearance - ENT Exam ENT Exam: Mucous Membranes Moist - Neck Exam Neck Exam: Normal Inspection - Respiratory Exam Respiratory Exam: Clear to Ausculation Bilateral, NORMAL BREATHING PATTERN. absent: Accessory Muscle Use, Wheezes, Respiratory Distress - Cardiovascular Exam Cardiovascular Exam: Tachycardia, REGULAR RHYTHM - GI/Abdominal Exam GI & Abdominal Exam: Soft. absent: Rigid - Rectal Exam Rectal Exam: Deferred - Extremities Exam Extremities Exam: Normal Capillary Refill, Pedal Edema (L trace edema to mid tibia). absent: Full ROM (L paralysis) - Back Exam Back Exam: NORMAL INSPECTION, rash noted (resolved) - Neurological Exam Neurological Exam: Alert, Awake, Motor Sensory Deficit. absent: Normal Gait, Oriented x3 Neuro motor strength exam: Left Upper Extremity: 0, Right Upper Extremity: 5, Left Lower Extremity: 0, Right Lower Extremity: 5 - Psychiatric Exam Psychiatric exam: Flat Affect - Skin Skin Exam: Dry, Intact, Normal Color, Warm Assessment and Plan - Assessment and Plan (Free Text) Assessment: Patient is a 52 yo male with a PMH of gastric ulcers who presented with L-side paralysis. Found to have ischemic stroke then hemorrhagic conversion- suspect embolic stroke 2/2 Afib 2/2 alcohol. MRI on 08/14 showed large R MCA infarct and basal ganglia and posterior frontoparietal hemorrhagic with 11 mm midline shift. Patient continues to have tachycardia and fevers. Possible etiologies- central fever s/p CVA, HCAP/aspiration PNA, PE/DVT. 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 Neurology okay to start ppx anticoagualtion, hold antiplatelets. Plan: Hemorrhagic conversion of R MCA ischemic CVA- suspect embolic 2/2 Afib 2/2 alcohol use - LUE and LLE paralysis - L shoulder XR: no subluxation/dislocation, no fracture - Repeated CT head continue to show evolution and increase of bleed - Initial CT head 08/10: There is a large on MCA branch territory infarct involving the right basal ganglia and right posterior frontoparietal region extending to the vertex with mass effect with overlying sulcal effacement, compression of the right lateral ventricle and shift of the septum pellucidum from right to left by approximately 4.9 mm.. Slight dilatation of the left lateral ventricle suggesting mild early compressive effects at the level of the left foramen of Garza. No definitive evidence of acute intracranial hemorrhage. - Most recent CT head 08/23: Continued evolution hemorrhagic conversion changes of a relatively large right MCA territory branch infarct. Persistent mass effect with compression of overlying sulci and right lateral ventricle with mild [id number] midline shift. No new hemorrhages. Persistent minimal dilatation left lateral ventricle. - Repeat CT on 08/29 - MRI brain 08/15: There is a relatively large subacute right MCA territory infarct with areas of hemorrhage in the basal ganglia and right posterior frontoparietal watershed zone as described. Persistent mass effect with compression of the right lateral ventricle and [id number] midline shift with septum pellucidum located approximately 11 mm to left of midline. Mild on dilatation left lateral ventricle due to mild compressive effects at the level of the left foramen of Monro. - Aspiration precautions - Seizure precautions - Hold anticoagulation - Crestor 20 mg PO QHS- hold due to transaminitis - Lipid panel: choles 271, LDL 184, HDL 59, TG 100 - EKG: sinus tachycardia - Echo with bubble study: no thrombus, no PFO - R PICC - Neurosurgery consulted (Naomy)- no intervention - Neurology consulted (Shavonne/Dain)- hold anticoag - Cardiology consulted (Neal)- no need for DAMIEN - PT/OT- recommend acute rehab - [employer] consulted Pulmonary embolism and LLE DVT - D-dimer elevated (3912) - CTA chest: extensive pulmonary thromboembolism - LE Dopplers: extensive left lower extremity DVT - Hold anticoagulation - IVC filter 08/20 - Hypercoagulable work-up- so far negative - Hem/onc consulted (Mariola) - Vascular surgery consulted (Shyla) Sinus tachycardia, fevers, improving- suspect 2/2 PE/DVT +/- central fevers 2/2 CVA - Most recent fever 100.6 on 08/22 8 AM - Procal low (0.12) - EKG: sinus tachycardia (130s)- resolved, HR now 100-110s sinus - Blood Cx no growth - Repeat no growth - Echo: EF 60-65%, no abnormalities, no vegetations - D-dimer elevated (3912) - CTA chest: extensive pulmonary thromboembolism - LE Dopplers: extensive left lower extremity DVT - Lopressor 50 mg PO BID - Lopressor 5 mg IV Q6H PRN Transaminitis, improving - Discontinue Tylenol, avoid hepatotoxic drugs - Abd u/s: no significant or acute findings - Hepatitis panel negative - HIV pending Low back pain - Lidoderm patch - Avoid Tylenol due to LFTs, avoid NSAIDs due to hemorrhagic stroke Rash, improving- consistent with urticaria - Topical Benadryl - Topical cortizone 0.5% - Completed Solu-medrol taper Alcohol use disorder - MV daily - Thiamine 100 mg PO daily - Folate 1 g PO daily - Cessation counseling Pneumonia, resolved- HCAP vs aspiration - Aspiration precautions - CXR: Mild venous congestion. Patchy increased markings at the left lung base with small left pleural effusion. Small nodular density projects over the left lung apex. Cardiomegaly. - Repeat CXR 08/20: no active disease - Discontinue Vancomycin 1 g IV Q12H - Discontinue Zosyn 3.375 IV Q6H - Lactobacillus BID Urinary tract infection, resolved - Urine Cx: Enterococcus faecalis - Repeat no growth - Finished 5 day course of Cipro 400 mg IV Q12H - Repeat UA, Cx negative Constipation, resolved - Senakot BID - Miralax daily PRN Ppx: VTE: contraindicated, only SCD to RLE GI: PTX 40 mg PO daily Code status: full code Case was discussed with attending, Dr. Bienvenido Castro. <Bienvenido Castro - Last Filed: 08/27/18 18:45> Objective - Vital Signs/Intake and Output Vital Signs (last 24 hours): Temp Pulse Resp BP Pulse Ox 98 F 80 17 108/75 95 08/27/18 16:00 08/27/18 16:00 08/27/18 16:00 08/27/18 14:01 08/27/18 16:00 Intake and Output: 08/27/18 08/27/18 06:59 18:59 Intake Total 120 400 Output Total 800 0 Balance -680 400 - Medications Medications: Current Medications Folic Acid (Folic Acid) 1 mg PO DAILY [facility] Last Admin: 08/27/18 09:47 Dose: 1 mg Hydrocortisone (Cortizone 0.5% Cream) 1 applic TOP PRN [facility] Last Admin: 08/21/18 18:27 Dose: 1 applic Sodium Chloride (Sodium Chloride 0.9%) 1,000 mls @ 75 mls/hr IV .[id number] [facility] Last Admin: 08/27/18 18:14 Dose: 75 mls/hr Lactobacillus Acidophilus (Bacid Acidophilus) 1 cap PO BID [facility] Last Admin: 08/27/18 18:11 Dose: 1 cap Lidocaine (Lidoderm) 1 ea TD DAILY [facility] Last Admin: 08/27/18 18:11 Dose: 1 ea Metoprolol Tartrate (Lopressor) 5 mg IVP Q6H PRN PRN Reason: Systolic Blood Pressure >160 Metoprolol Tartrate (Lopressor) 50 mg PO BID [facility] Last Admin: 08/27/18 18:11 Dose: 50 mg Multivitamins (Hexavitamin) 1 tab PO DAILY [facility] Last Admin: 08/27/18 09:47 Dose: 1 tab Pantoprazole Sodium (Protonix Ec Tab) 40 mg PO DAILY [facility] Last Admin: 08/27/18 09:47 Dose: 40 mg Polyethylene Glycol (Miralax) 17 gm PO DAILY PRN PRN Reason: Constipation Last Admin: 08/27/18 09:48 Dose: 17 gm Rosuvastatin Calcium (Crestor) 20 mg NG HS [facility] Last Admin: 08/18/18 22:06 Dose: 20 mg Senna/Docusate Sodium (Senokot S 50 Mg-8.6 Mg) 1 tab PO BID [facility] Last Admin: 08/27/18 18:12 Dose: 1 tab Thiamine HCl (Vitamin B1 Tab) 100 mg PO DAILY [facility] Last Admin: 08/27/18 09:48 Dose: 100 mg Zinc Acetate/Diphenhydramine (Benadryl 1% Zinc Acetate -0.1%) 1 cre TOP TID PRN PRN Reason: Itching / Pruritus Last Admin: 08/25/18 09:00 Dose: 1 applic - Labs Labs: 08/27/18 06:05 08/27/18 06:03 PT 14.3 SECONDS (9.7-12.2) H 08/27/18 06:05 INR 1.3 08/27/18 06:05 APTT 25 SECONDS (21-34) 08/27/18 06:05 Attending/Attestation - Attestation I have personally seen and examined this patient.: Yes I have fully participated in the care of the patient.: Yes I have reviewed all pertinent clinical information, including history, physical exam and plan: Yes Notes (Text): 08/27/18 18:45 This is a late entry. Care of this patient was gone over in detail with Dr. Garland. Bienvenido Castro D.O.
[2018-08-26] MEDS: Multiple Vitamins Tab PO SCH (09:43)
[2018-08-26] MEDS: Lactobacillus Acidophilus 500 MU Cap PO SCH ×2 (09:43→17:40)
[2018-08-26] MEDS: Pantoprazole 40 mg EC Tab PO SCH (09:44)
[2018-08-26] MEDS: Docusate-Senna 50 mg-8.6 mg Tab PO SCH ×2 (09:44→17:40)
--- NOTE | 2018-08-26 12:15 | CP.PCM.PN ---
<Shereen Ramos - Last Filed: 08/26/18 12:21> Subjective - Date & Time of Evaluation Date of Evaluation: 08/26/18 Time of Evaluation: 12:14 - Subjective Subjective: Neurology Consultation Follow-Up Note: Mr. Aguayo was evaluated in the ICU. He is watching television and is awake, alert, oriented x3. He continues to be in a better mood. Continues to engage willingly in the follow up interview and exam. He states again that he is eager to go to a rehab facility. Today Mr. Aguayo denies any new complaints. Denies headache, visual changes, dizziness, chest pain, shortness of breath, nausea/vomiting. Mr. Aguayo is status post IVC filter placement 08/20/18. Objective - Vital Signs/Intake and Output Vital Signs (last 24 hours): Temp Pulse Resp BP Pulse Ox 97.5 F L 95 H 13 100/67 95 08/26/18 08:00 08/26/18 10:01 08/26/18 10:01 08/26/18 10:01 08/26/18 08:00 Intake and Output: 08/26/18 08/26/18 06:59 18:59 Intake Total 200 Output Total 700 Balance -500 - Medications Medications: Current Medications Folic Acid (Folic Acid) 1 mg PO DAILY [facility] Last Admin: 08/26/18 09:43 Dose: 1 mg Hydrocortisone (Cortizone 0.5% Cream) 1 applic TOP PRN [facility] Last Admin: 08/21/18 18:27 Dose: 1 applic Lactobacillus Acidophilus (Bacid Acidophilus) 1 cap PO BID [facility] Last Admin: 08/26/18 09:43 Dose: 1 cap Lidocaine (Lidoderm) 1 ea TD DAILY [facility] Metoprolol Tartrate (Lopressor) 5 mg IVP Q6H PRN PRN Reason: Systolic Blood Pressure >160 Metoprolol Tartrate (Lopressor) 50 mg PO BID [facility] Last Admin: 08/26/18 09:43 Dose: 50 mg Multivitamins (Hexavitamin) 1 tab PO DAILY [facility] Last Admin: 08/26/18 09:43 Dose: 1 tab Pantoprazole Sodium (Protonix Ec Tab) 40 mg PO DAILY [facility] Last Admin: 08/26/18 09:44 Dose: 40 mg Polyethylene Glycol (Miralax) 17 gm PO DAILY PRN PRN Reason: Constipation Rosuvastatin Calcium (Crestor) 20 mg NG HS [facility] Last Admin: 08/18/18 22:06 Dose: 20 mg Senna/Docusate Sodium (Senokot S 50 Mg-8.6 Mg) 1 tab PO BID [facility] Last Admin: 08/26/18 09:44 Dose: 1 tab Thiamine HCl (Vitamin B1 Tab) 100 mg PO DAILY [facility] Last Admin: 08/26/18 09:44 Dose: 100 mg Zinc Acetate/Diphenhydramine (Benadryl 1% Zinc Acetate -0.1%) 1 cre TOP TID PRN PRN Reason: Itching / Pruritus Last Admin: 08/25/18 09:00 Dose: 1 applic - Labs Labs: 08/26/18 05:57 08/26/18 05:57 PT 15.1 SECONDS (9.7-12.2) H 08/25/18 06:28 INR 1.4 08/25/18 06:28 APTT 21 SECONDS (21-34) 08/25/18 06:28 - Constitutional Appears: Well, Non-toxic, No Acute Distress - Head Exam Head Exam: ATRAUMATIC, NORMAL INSPECTION, NORMOCEPHALIC - Eye Exam Eye Exam: EOMI, Normal appearance, PERRL Pupil Exam: NORMAL ACCOMODATION, PERRL - ENT Exam ENT Exam: Mucous Membranes Moist, Normal Exam - Respiratory Exam Respiratory Exam: NORMAL BREATHING PATTERN - Extremities Exam Extremities Exam: absent: Full ROM (left hemiplegia), Pedal Edema (+ LLE edema) - Neurological Exam Neurological Exam: Alert, Awake, CN II-XII Intact, Oriented x3 Neuro motor strength exam: Left Upper Extremity: 0 (left hemiplegia and neglect), Right Upper Extremity: 5, Left Lower Extremity: 0 (left hemiplegia and neglect), Right Lower Extremity: 5 Additional comments: Sensation intact and equal bilaterally; no pronator drift to RUE. - Psychiatric Exam Psychiatric exam: Normal Affect, Normal Mood - Skin Skin Exam: Normal Color Assessment and Plan (1) Stroke Assessment & Plan: Imaging: -CT Head (08/11/18): large on MCA branch territory infarct involving right basal ganglia and right posterior frotnoparietal region extending to vertex with mass effect with overlying sulcal effacement, compression of the right lateral ventricle and shift of the septum pellucidum from right to left lateral ventricle suggesting mild early compressive effects at the level of left foramen of Garza. No definitive evidence of acute intracranial hemorrhage. -CT head and neck: no evidence of occlusion, dissection or significatn stenosis of the cervical caroitd or vertebral circulation. mild atheroscelroritc plauqe changes seen both cartoid siphons. no evidence of large aneurysm nor vascular malformation. -CT head (08/12/18); hemorrhage conversion of known large right MCA territoty infarction with local regional mass effect, diffuse cerenral edema, and 11mm midline from right to left. interval development of right SOTO territory infarction involving the paramedian frontal lobe. -CT Head (08/15/18): relatively large right MCA territory infarct again with questionable hemorrhage conversion changes. Mild mass effect with overlying sulcal effacement and compression of the right lateral ventricle lower shift of the spetum pellucidum from left to right by approximately 11mm. Questionable he morrhagic conversion -Brain MRI (08/15/18): Relatively large subacute right MCA territory infarct wi th areas of hemorrhage in the basal ganglkia and right posterio frontoparietal watershed zone as described. persistent mass effect with compression of the right lateral ventricle and right to left midline shift with septum pellucidium approximately 11mm to left of midline. Mild on dilatation left lateral ventricle due to mild compressive effects at level of left foramen of monro. -CT head (08/20/18): interval evolution of large right MCA territory hemorrhagic infarction with mass effect and effacement of the right cerebral cortical sulci, right lateral ventricle and 10 midline shift from right to left. no significant interval change. -CT head (08/23/18): continued evolution hemorrhage conversion changes of a relatively large right MCA territory branch infarct. Persisteent mass effect with compression of overlying sulci and right lateral ventricle with mild right to left midline shift. No new hemorrhages. Persistent minimal dilatation left lateral ventricle. -Mr. Aguayo continues to be stable at this time. -Will repeat CT Head without Contrast in 1-week to evaluate the hemorrhagic co nversion of his Right MCA infarct---this has already been ordered for 08/29/18. -We will follow up on the results of the repeat CT Heat without contrast once it is completed. -Continue to hold anticoagulation for now as patient is at a high risk of re- bleeding. Mr. Aguayo already has an IVC filter. -Continue aggressive PT/OT with focus to LUE and LLE. -Please notify neuro team if acute changes in condition occur. Case discussed with Dr. Carmen. Thank you for allowing us to participate in this patient's care. Status: Acute (2) Pulmonary embolism Assessment & Plan: -Mr. Aguayo has an IVC filter in place. -Continue to hold anticoagulation. -Further management per primary team. Status: Acute <Glenys Carmen - Last Filed: 08/26/18 17:14> Objective - Vital Signs/Intake and Output Vital Signs (last 24 hours): Temp Pulse Resp BP Pulse Ox 98.1 F 87 19 102/62 95 08/26/18 16:00 08/26/18 14:01 08/26/18 14:01 08/26/18 14:01 08/26/18 08:00 Intake and Output: 08/26/18 08/26/18 06:59 18:59 Intake Total 200 Output Total 700 Balance -500 - Medications Medications: Current Medications Folic Acid (Folic Acid) 1 mg PO DAILY [facility] Last Admin: 08/26/18 09:43 Dose: 1 mg Hydrocortisone (Cortizone 0.5% Cream) 1 applic TOP PRN [facility] Last Admin: 08/21/18 18:27 Dose: 1 applic Lactobacillus Acidophilus (Bacid Acidophilus) 1 cap PO BID [facility] Last Admin: 08/26/18 09:43 Dose: 1 cap Lidocaine (Lidoderm) 1 ea TD DAILY [facility] Last Admin: 08/26/18 16:34 Dose: 1 ea Metoprolol Tartrate (Lopressor) 5 mg IVP Q6H PRN PRN Reason: Systolic Blood Pressure >160 Metoprolol Tartrate (Lopressor) 50 mg PO BID [facility] Last Admin: 08/26/18 09:43 Dose: 50 mg Multivitamins (Hexavitamin) 1 tab PO DAILY [facility] Last Admin: 08/26/18 09:43 Dose: 1 tab Pantoprazole Sodium (Protonix Ec Tab) 40 mg PO DAILY [facility] Last Admin: 08/26/18 09:44 Dose: 40 mg Polyethylene Glycol (Miralax) 17 gm PO DAILY PRN PRN Reason: Constipation Rosuvastatin Calcium (Crestor) 20 mg NG HS [facility] Last Admin: 08/18/18 22:06 Dose: 20 mg Senna/Docusate Sodium (Senokot S 50 Mg-8.6 Mg) 1 tab PO BID [facility] Last Admin: 08/26/18 09:44 Dose: 1 tab Thiamine HCl (Vitamin B1 Tab) 100 mg PO DAILY [facility] Last Admin: 08/26/18 09:44 Dose: 100 mg Zinc Acetate/Diphenhydramine (Benadryl 1% Zinc Acetate -0.1%) 1 cre TOP TID PRN PRN Reason: Itching / Pruritus Last Admin: 08/25/18 09:00 Dose: 1 applic - Labs Labs: 08/26/18 05:57 08/26/18 05:57 PT 15.1 SECONDS (9.7-12.2) H 08/25/18 06:28 INR 1.4 08/25/18 06:28 APTT 21 SECONDS (21-34) 08/25/18 06:28 Assessment and Plan - Assessment and Plan (Free Text) Assessment: All medical record entries made by the Resident were at my direction and personally dictated by me. I have reviewed the chart and agree that the record accurately reflects my personal performance of the history, physical exam, medical decision making, and the department course for this patient. I have also personally directed, reviewed, and agree with the discharge instructions and disposition. Castillo carmen
--- NOTE | 2018-08-26 13:29 | RAD ---
Date of service: 08/26/2018 PROCEDURE: Radiographs of the Left Shoulder HISTORY: r/o subluxation COMPARISON: No prior. FINDINGS: BONES: Normal. No fracture. 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 SOFT TISSUES: Normal. OTHER FINDINGS: None. IMPRESSION: No evidence of acute displaced fracture nor dislocation. 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
[2018-08-26] MEDS: Lidocaine 5% Patch TD SCH (16:34)
--- NOTE | 2018-08-26 17:51 | CARD ---
APPROVED REPORT Date of service: 08/19/2018 EKG Measurement Heart [id number] ND [id number] <Conclusion> Sinus tachycardia Otherwise normal ECG
[2018-08-27 06:10] LABS: BASO # 0.1 K/uL (0.0-0.2); BASO % 0.6 % (0.0-2.0); EOS # 0.8 K/uL (0.0-0.7); EOS % 5.2 % (0.0-4.0); HEMOGLOBIN 12.7 g/dL (12.0-18.0); LYMPH # 2.5 K/uL (1.0-4.3); LYMPH % 16.4 % (20.0-40.0); MEAN CELL VOLUME 86.9 fL (80.0-94.0); MEAN CORPUSCULAR HEMOGLOBIN 28.3 pg (27.0-31.0); MEAN CORPUSCULAR HGB CONC 32.6 g/dL (33.0-37.0); MEAN PLATELET VOLUME 8.3 fL (7.2-11.7); MONO % 6.9 % (0.0-10.0); NEUT # 10.8 K/uL (1.8-7.0); NEUT % 70.9 % (50.0-75.0); RBC 4.48 Mil/uL (4.40-5.90); RED CELL DISTRIBUTION WIDTH 13.1 % (11.5-14.5); WHITE BLOOD COUNT 15.2 K/uL (4.8-10.8)
[2018-08-27 06:24] LABS: INR 1.3; PROTHROMBIN TIME 14.3 SECONDS (9.7-12.2)
[2018-08-27 06:54] LABS: ALB/GLOB RATIO 0.8 (1.0-2.1); ALBUMIN 3.2 g/dL (3.5-5.0); ALT/SGPT 238 U/L (21-72); AST/SGOT 98 U/L (17-59); BLOOD UREA NITROGEN 18 mg/dL (9-20); CALCIUM 8.4 mg/dl (8.6-10.4); GFR NON-AFRICAN AMERICAN > 60
--- NOTE | 2018-08-27 06:55 | CP.PCM.PN ---
<Olga Lidia Garland - Last Filed: 08/27/18 17:52> Subjective - Date & Time of Evaluation Date of Evaluation: 08/27/18 Time of Evaluation: 09:15 - Subjective Subjective: PGY-1 Olga Lidia Garland D.O. Medicine progress note for Dr. Bienvenido Roth service: Patient was seen and examined this morning. Clinically the same- paralyzed LUE, LLE. Concern for shoulder dislocation yesterday, but XR was normal. Patient has no acute complaints. He is having BMs and urinating. Objective - Vital Signs/Intake and Output Vital Signs (last 24 hours): Temp Pulse Resp BP Pulse Ox 98.5 F 112 H 13 101/76 97 08/27/18 04:00 08/27/18 06:27 08/27/18 06:27 08/27/18 06:27 08/27/18 04:00 Intake and Output: 08/26/18 08/27/18 18:59 06:59 Intake Total 1080 120 Output Total 700 800 Balance 380 -680 - Medications Medications: Current Medications Folic Acid (Folic Acid) 1 mg PO DAILY [facility] Last Admin: 08/26/18 09:43 Dose: 1 mg Hydrocortisone (Cortizone 0.5% Cream) 1 applic TOP PRN [facility] Last Admin: 08/21/18 18:27 Dose: 1 applic Lactobacillus Acidophilus (Bacid Acidophilus) 1 cap PO BID [facility] Last Admin: 08/26/18 17:40 Dose: 1 cap Lidocaine (Lidoderm) 1 ea TD DAILY [facility] Last Admin: 08/26/18 16:34 Dose: 1 ea Metoprolol Tartrate (Lopressor) 5 mg IVP Q6H PRN PRN Reason: Systolic Blood Pressure >160 Metoprolol Tartrate (Lopressor) 50 mg PO BID [facility] Last Admin: 08/26/18 17:40 Dose: 50 mg Multivitamins (Hexavitamin) 1 tab PO DAILY [facility] Last Admin: 08/26/18 09:43 Dose: 1 tab Pantoprazole Sodium (Protonix Ec Tab) 40 mg PO DAILY [facility] Last Admin: 08/26/18 09:44 Dose: 40 mg Polyethylene Glycol (Miralax) 17 gm PO DAILY PRN PRN Reason: Constipation Rosuvastatin Calcium (Crestor) 20 mg NG HS [facility] Last Admin: 08/18/18 22:06 Dose: 20 mg Senna/Docusate Sodium (Senokot S 50 Mg-8.6 Mg) 1 tab PO BID [facility] Last Admin: 08/26/18 17:40 Dose: 1 tab Thiamine HCl (Vitamin B1 Tab) 100 mg PO DAILY [facility] Last Admin: 08/26/18 09:44 Dose: 100 mg Zinc Acetate/Diphenhydramine (Benadryl 1% Zinc Acetate -0.1%) 1 cre TOP TID PRN PRN Reason: Itching / Pruritus Last Admin: 08/25/18 09:00 Dose: 1 applic - Labs Labs: 08/27/18 06:05 08/26/18 05:57 PT 14.3 SECONDS (9.7-12.2) H 08/27/18 06:05 INR 1.3 08/27/18 06:05 APTT 25 SECONDS (21-34) 08/27/18 06:05 - Constitutional Appears: No Acute Distress, Confused - Head Exam Head Exam: ATRAUMATIC, NORMAL INSPECTION - Eye Exam Eye Exam: EOMI, Normal appearance - ENT Exam ENT Exam: Mucous Membranes Moist - Neck Exam Neck Exam: Normal Inspection - Respiratory Exam Respiratory Exam: Clear to Ausculation Bilateral, NORMAL BREATHING PATTERN. absent: Accessory Muscle Use, Respiratory Distress - Cardiovascular Exam Cardiovascular Exam: Tachycardia, REGULAR RHYTHM, +S1, +S2 - GI/Abdominal Exam GI & Abdominal Exam: Soft. absent: Tenderness - Rectal Exam Rectal Exam: Deferred - Extremities Exam Extremities Exam: Pedal Edema (trace LLE). absent: Tenderness - Back Exam Back Exam: NORMAL INSPECTION - Neurological Exam Neurological Exam: Alert, Awake, Motor Sensory Deficit. absent: Normal Gait Neuro motor strength exam: Left Upper Extremity: 0, Right Upper Extremity: 5, Left Lower Extremity: 0, Right Lower Extremity: 5 - Psychiatric Exam Psychiatric exam: Flat Affect - Skin Skin Exam: Dry, Intact, Normal Color, Warm. absent: Rash, Urticaria Assessment and Plan - Assessment and Plan (Free Text) Assessment: Patient is a 52 yo male with a PMH of gastric ulcers who presented with L-side paralysis. Found to have ischemic stroke then hemorrhagic conversion- suspect embolic stroke 2/2 Afib 2/2 alcohol. MRI on 08/14 showed large R MCA infarct and basal ganglia and posterior frontoparietal hemorrhagic with 11 mm midline shift. Patient continues to have tachycardia and fevers. Possible etiologies- central fever s/p CVA, HCAP/aspiration PNA, PE/DVT. 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 Neurology okay to start ppx anticoagualtion, hold antiplatelets. Plan: Hemorrhagic conversion of R MCA ischemic CVA- suspect embolic 2/2 Afib 2/2 alcohol use - LUE and LLE paralysis - L shoulder XR: no subluxation/dislocation, no fracture - Repeated CT head continue to show evolution and increase of bleed - Initial CT head 08/10: There is a large on MCA branch territory infarct involving the right basal ganglia and right posterior frontoparietal region extending to the vertex with mass effect with overlying sulcal effacement, compression of the right lateral ventricle and shift of the septum pellucidum from right to left by approximately 4.9 mm.. Slight dilatation of the left lateral ventricle suggesting mild early compressive effects at the level of the left foramen of Garza. No definitive evidence of acute intracranial hemorrhage. - Most recent CT head 08/23: Continued evolution hemorrhagic conversion changes of a relatively large right MCA territory branch infarct. Persistent mass effect with compression of overlying sulci and right lateral ventricle with mild [id number] midline shift. No new hemorrhages. Persistent minimal dilatation left lateral ventricle. - Repeat CT on 08/29 - MRI brain 08/15: There is a relatively large subacute right MCA territory infarct with areas of hemorrhage in the basal ganglia and right posterior fronto parietal watershed zone as described. Persistent mass effect with compression of the right lateral ventricle and [id number] midline shift with septum pellucidum located approximately 11 mm to left of midline. Mild on dilatation left lateral ventricle due to mild compressive effects at the level of the left foramen of Monro. - Aspiration precautions - Seizure precautions - Hold anticoagulation - Crestor 20 mg PO QHS- hold due to transaminitis - Lipid panel: choles 271, LDL 184, HDL 59, TG 100 - EKG: sinus tachycardia - Echo with bubble study: no thrombus, no PFO - R PICC - Neurosurgery consulted (Naomy)- no intervention - Neurology consulted (Shavonne/Dain)- hold anticoag - Cardiology consulted (Neal)- no need for DAMIEN - PT/OT- recommend acute rehab - STYLIST ASSISTANT consulted - SW/CM consulted- Jeannette has attempted to contact patient's son in [place] on multiple occasions. Son has not answered phone and there is no option to leave voicemail Pulmonary embolism and LLE Deep vein thrombosis - D-dimer elevated (3912) - CTA chest: extensive pulmonary thromboembolism - LE Dopplers: extensive left lower extremity DVT - Hold anticoagulation - IVC filter 08/20 - Hypercoagulable work-up- so far negative - Hem/onc consulted (Mariola) - Vascular surgery consulted (Shyla)- s/p IVC filter Sinus tachycardia, fevers, improving- suspect 2/2 PE/DVT +/- central fevers 2/2 CVA - Most recent fever 100.6 on 08/22 8 AM - No changes to rate control meds as to not lower BP (already low normal) - Start NS @ 75 mL/hr - Procal low (0.12) - EKG: sinus tachycardia (130s)- HR now 100-110s sinus - Blood Cx no growth - Repeat no growth - Echo: EF 60-65%, no abnormalities, no vegetations - D-dimer elevated (3912) - CTA chest: extensive pulmonary thromboembolism - LE Dopplers: extensive left lower extremity DVT - Lopressor 50 mg PO BID - Lopressor 5 mg IV Q6H PRN Transaminitis, improving - Discontinue Tylenol, avoid hepatotoxic drugs - Abd u/s: no significant or acute findings - Hepatitis panel negative - HIV pending Low back pain - Lidoderm patch - Avoid Tylenol due to LFTs, avoid NSAIDs due to hemorrhagic stroke Rash, resolved- consistent with urticaria - Topical Benadryl - Topical cortizone 0.5% Alcohol use disorder - MV daily - Thiamine 100 mg PO daily - Folate 1 g PO daily - Cessation counseling Pneumonia, resolved- HCAP vs aspiration - Aspiration precautions - CXR: Mild venous congestion. Patchy increased markings at the left lung base with small left pleural effusion. Small nodular density projects over the left lung apex. Cardiomegaly. - Repeat CXR 08/20: no active disease - Lactobacillus acidophilus BID Urinary tract infection, resolved - Urine Cx: Enterococcus faecalis - Repeat no growth - Finished 5 day course of Cipro 400 mg IV Q12H - Repeat UA, Cx negative Constipation, resolved - Senakot BID - Miralax daily PRN Ppx: VTE: contraindicated, only SCD to RLE GI: PTX 40 mg PO daily Code status: full code Case was discussed with attending, Dr. Bienvenido Castro. <Bienvenido Castro J - Last Filed: 08/27/18 18:45> Objective - Vital Signs/Intake and Output Vital Signs (last 24 hours): Temp Pulse Resp BP Pulse Ox 98 F 80 17 108/75 95 08/27/18 16:00 08/27/18 16:00 08/27/18 16:00 08/27/18 14:01 08/27/18 16:00 Intake and Output: 08/27/18 08/27/18 06:59 18:59 Intake Total 120 400 Output Total 800 0 Balance -680 400 - Medications Medications: Current Medications Folic Acid (Folic Acid) 1 mg PO DAILY [facility] Last Admin: 08/27/18 09:47 Dose: 1 mg Hydrocortisone (Cortizone 0.5% Cream) 1 applic TOP PRN [facility] Last Admin: 08/21/18 18:27 Dose: 1 applic Sodium Chloride (Sodium Chloride 0.9%) 1,000 mls @ 75 mls/hr IV .[id number] [facility] Last Admin: 08/27/18 18:14 Dose: 75 mls/hr Lactobacillus Acidophilus (Bacid Acidophilus) 1 cap PO BID [facility] Last Admin: 08/27/18 18:11 Dose: 1 cap Lidocaine (Lidoderm) 1 ea TD DAILY [facility] Last Admin: 08/27/18 18:11 Dose: 1 ea Metoprolol Tartrate (Lopressor) 5 mg IVP Q6H PRN PRN Reason: Systolic Blood Pressure >160 Metoprolol Tartrate (Lopressor) 50 mg PO BID [facility] Last Admin: 08/27/18 18:11 Dose: 50 mg Multivitamins (Hexavitamin) 1 tab PO DAILY [facility] Last Admin: 08/27/18 09:47 Dose: 1 tab Pantoprazole Sodium (Protonix Ec Tab) 40 mg PO DAILY [facility] Last Admin: 08/27/18 09:47 Dose: 40 mg Polyethylene Glycol (Miralax) 17 gm PO DAILY PRN PRN Reason: Constipation Last Admin: 08/27/18 09:48 Dose: 17 gm Rosuvastatin Calcium (Crestor) 20 mg NG HS [facility] Last Admin: 08/18/18 22:06 Dose: 20 mg Senna/Docusate Sodium (Senokot S 50 Mg-8.6 Mg) 1 tab PO BID [facility] Last Admin: 08/27/18 18:12 Dose: 1 tab Thiamine HCl (Vitamin B1 Tab) 100 mg PO DAILY [facility] Last Admin: 08/27/18 09:48 Dose: 100 mg Zinc Acetate/Diphenhydramine (Benadryl 1% Zinc Acetate -0.1%) 1 cre TOP TID PRN PRN Reason: Itching / Pruritus Last Admin: 08/25/18 09:00 Dose: 1 applic - Labs Labs: 08/27/18 06:05 08/27/18 06:03 PT 14.3 SECONDS (9.7-12.2) H 08/27/18 06:05 INR 1.3 08/27/18 06:05 APTT 25 SECONDS (21-34) 08/27/18 06:05 Attending/Attestation - Attestation I have personally seen and examined this patient.: Yes I have fully participated in the care of the patient.: Yes I have reviewed all pertinent clinical information, including history, physical exam and plan: Yes Notes (Text): 08/27/18 18:43 Patient was seen and examined at 6:30 PM Care of this patient was gone over in detail with resident Dr. Garland Patient has not moved bowels in 3 days. Spoke with Nurse Tran and she has given Senokot and Miralaax. NS at 75 ml/hr started for low blood pressure that may be contributing to the tachycardia. Bienvenido Castro D.O.
[2018-08-27] MEDS: Pantoprazole 40 mg EC Tab PO SCH (09:47)
[2018-08-27] MEDS: Multiple Vitamins Tab PO SCH (09:47)
[2018-08-27] MEDS: POLYETHYLENE GLYCOL 3350 17 GM/Dose PACKET PO PRN (09:48)
[2018-08-27] MEDS: Lactobacillus Acidophilus 500 MU Cap PO SCH ×2 (09:49→18:11)
[2018-08-27] MEDS: Docusate-Senna 50 mg-8.6 mg Tab PO SCH ×2 (09:49→18:12)
--- NOTE | 2018-08-27 10:31 | CP.PCM.PN ---
Subjective - Date & Time of Evaluation Date of Evaluation: 08/27/18 Time of Evaluation: 10:30 - Subjective Subjective: Neurology Consultation Follow-Up Note: Mr. Aguayo was evaluated this morning in the ICU. He was awake, alert, oriented x3. He continues to engage willingly in the follow up interview and exam. He expressed again that he is eager to go to begin rehab outside of the hospital. He admits that he still cannot move his left arm and left leg but is "trying". Mr. Aguayo denies any new complaints today. Denies headache, visual changes, d izziness, chest pain, shortness of breath, nausea/vomiting. Mr. Aguayo is status post IVC filter placement 08/20/18. Objective - Vital Signs/Intake and Output Vital Signs (last 24 hours): Temp Pulse Resp BP Pulse Ox 98.5 F 98 H 18 98/66 L 93 L 08/27/18 07:45 08/27/18 07:45 08/27/18 07:45 08/27/18 07:45 08/27/18 07:45 Intake and Output: 08/27/18 08/27/18 06:59 18:59 Intake Total 120 400 Output Total 800 0 Balance -680 400 - Medications Medications: Current Medications Folic Acid (Folic Acid) 1 mg PO DAILY [facility] Last Admin: 08/27/18 09:47 Dose: 1 mg Hydrocortisone (Cortizone 0.5% Cream) 1 applic TOP PRN [facility] Last Admin: 08/21/18 18:27 Dose: 1 applic Lactobacillus Acidophilus (Bacid Acidophilus) 1 cap PO BID [facility] Last Admin: 08/27/18 09:49 Dose: 1 cap Lidocaine (Lidoderm) 1 ea TD DAILY [facility] Last Admin: 08/26/18 16:34 Dose: 1 ea Metoprolol Tartrate (Lopressor) 5 mg IVP Q6H PRN PRN Reason: Systolic Blood Pressure >160 Metoprolol Tartrate (Lopressor) 50 mg PO BID [facility] Last Admin: 08/27/18 09:47 Dose: 50 mg Multivitamins (Hexavitamin) 1 tab PO DAILY [facility] Last Admin: 08/27/18 09:47 Dose: 1 tab Pantoprazole Sodium (Protonix Ec Tab) 40 mg PO DAILY [facility] Last Admin: 08/27/18 09:47 Dose: 40 mg Polyethylene Glycol (Miralax) 17 gm PO DAILY PRN PRN Reason: Constipation Last Admin: 08/27/18 09:48 Dose: 17 gm Rosuvastatin Calcium (Crestor) 20 mg NG HS [facility] Last Admin: 08/18/18 22:06 Dose: 20 mg Senna/Docusate Sodium (Senokot S 50 Mg-8.6 Mg) 1 tab PO BID [facility] Last Admin: 08/27/18 09:49 Dose: 1 tab Thiamine HCl (Vitamin B1 Tab) 100 mg PO DAILY [facility] Last Admin: 08/27/18 09:48 Dose: 100 mg Zinc Acetate/Diphenhydramine (Benadryl 1% Zinc Acetate -0.1%) 1 cre TOP TID PRN PRN Reason: Itching / Pruritus Last Admin: 08/25/18 09:00 Dose: 1 applic - Labs Labs: 08/27/18 06:05 08/27/18 06:03 PT 14.3 SECONDS (9.7-12.2) H 08/27/18 06:05 INR 1.3 08/27/18 06:05 APTT 25 SECONDS (21-34) 08/27/18 06:05 - Constitutional Appears: Well, Non-toxic, No Acute Distress - Head Exam Head Exam: ATRAUMATIC, NORMAL INSPECTION, NORMOCEPHALIC - Eye Exam Eye Exam: EOMI, Normal appearance Pupil Exam: PERRL - ENT Exam ENT Exam: Mucous Membranes Moist - Neck Exam Neck Exam: Full ROM - Respiratory Exam Respiratory Exam: NORMAL BREATHING PATTERN - Extremities Exam Extremities Exam: Pedal Edema (LLE). absent: Full ROM (left hemiplegia) - Neurological Exam Neurological Exam: Alert, Awake, CN II-XII Intact, Oriented x3 Neuro motor strength exam: Left Upper Extremity: 0, Right Upper Extremity: 5, Left Lower Extremity: 0, Right Lower Extremity: 5 Additional comments: Continues to have sensation intact and equal bilaterally; no pronator drift to RUE noted. + left hemiplegia and neglect noted. - Psychiatric Exam Psychiatric exam: Normal Affect, Normal Mood - Skin Skin Exam: Normal Color Assessment and Plan (1) Stroke Assessment & Plan: Imaging: -CT Head (08/11/18): large on MCA branch territory infarct involving right basal ganglia and right posterior frotnoparietal region extending to vertex with mass effect with overlying sulcal effacement, compression of the right lateral ventricle and shift of the septum pellucidum from right to left lateral ventricle suggesting mild early compressive effects at the level of left foramen of Garza. No definitive evidence of acute intracranial hemorrhage. -CT head and neck: no evidence of occlusion, dissection or significatn stenosis of the cervical caroitd or vertebral circulation. mild atheroscelroritc plauqe changes seen both cartoid siphons. no evidence of large aneurysm nor vascular malformation. -CT head (08/12/18); hemorrhage conversion of known large right MCA territoty infarction with local regional mass effect, diffuse cerenral edema, and 11mm midline from right to left. interval development of right SOTO territory infarction involving the paramedian frontal lobe. -CT Head (08/15/18): relatively large right MCA territory infarct again with questionable hemorrhage conversion changes. Mild mass effect with overlying sulcal effacement and compression of the right lateral ventricle lower shift of the spetum pellucidum from left to right by approximately 11mm. Questionable he morrhagic conversion -Brain MRI (08/15/18): Relatively large subacute right MCA territory infarct wi th areas of hemorrhage in the basal ganglkia and right posterio frontoparietal watershed zone as described. persistent mass effect with compression of the right lateral ventricle and right to left midline shift with septum pellucidium approximately 11mm to left of midline. Mild on dilatation left lateral ventricle due to mild compressive effects at level of left foramen of monro. -CT head (08/20/18): interval evolution of large right MCA territory hemorrhagic infarction with mass effect and effacement of the right cerebral cortical sulci, right lateral ventricle and 10 midline shift from right to left. no significant interval change. -CT head (08/23/18): continued evolution hemorrhage conversion changes of a relatively large right MCA territory branch infarct. Persisteent mass effect with compression of overlying sulci and right lateral ventricle with mild right to left midline shift. No new hemorrhages. Persistent minimal dilatation left lateral ventricle. -Mr. Aguayo continues to be stable at this time. -Will repeat CT Head without Contrast on 08/29/18 to evaluate the hemorrhagic conversion of his Right MCA infarct. -We will follow up on the results of the repeat CT Heat without contrast once it is completed. -Continue to hold anticoagulation for now as patient is at a high risk of re- bleeding. Mr. Aguayo already has an IVC filter. -Continue aggressive PT/OT. -Please notify neuro team if acute changes in condition occur. Case discussed with Dr. Gautam. Status: Acute (2) Pulmonary embolism Assessment & Plan: -Mr. Aguayo has an IVC filter in place. -Continue to hold anticoagulation. -Further management per primary team. Case discussed with Dr. Gautam. Status: Acute
[2018-08-27] MEDS: Lidocaine 5% Patch TD SCH (18:11)
[2018-08-27] MEDS: Sodium Chloride 0.9% 1,000 ML IV SCH (18:14)
[2018-08-28 05:54] LABS: BASO # 0.1 K/uL (0.0-0.2); BASO % 0.5 % (0.0-2.0); EOS # 0.6 K/uL (0.0-0.7); EOS % 4.8 % (0.0-4.0); HEMOGLOBIN 12.6 g/dL (12.0-18.0); LYMPH # 2.2 K/uL (1.0-4.3); LYMPH % 17.5 % (20.0-40.0); MEAN CORPUSCULAR HEMOGLOBIN 28.1 pg (27.0-31.0); MEAN CORPUSCULAR HGB CONC 32.7 g/dL (33.0-37.0); MEAN PLATELET VOLUME 8.1 fL (7.2-11.7); MONO # 1.1 K/uL (0.0-0.8); MONO % 8.7 % (0.0-10.0); NEUT # 8.7 K/uL (1.8-7.0); NEUT % 68.5 % (50.0-75.0); RBC 4.47 Mil/uL (4.40-5.90); RED CELL DISTRIBUTION WIDTH 13.3 % (11.5-14.5); WHITE BLOOD COUNT 12.7 K/uL (4.8-10.8)
[2018-08-28 05:59] LABS: INR 1.4; PROTHROMBIN TIME 14.9 SECONDS (9.7-12.2)
[2018-08-28 06:20] LABS: ALB/GLOB RATIO 0.9 (1.0-2.1); ALBUMIN 3.1 g/dL (3.5-5.0); ALT/SGPT 186 U/L (21-72); AST/SGOT 90 U/L (17-59); BLOOD UREA NITROGEN 15 mg/dL (9-20); CALCIUM 8.5 mg/dl (8.6-10.4); GFR NON-AFRICAN AMERICAN > 60
--- NOTE | 2018-08-28 06:28 | CP.PCM.PN ---
<Olga Lidia Garland - Last Filed: 08/28/18 14:15> Subjective - Date & Time of Evaluation Date of Evaluation: 08/28/18 Time of Evaluation: 07:15 - Subjective Subjective: PGY-1 Olga Lidia Garland D.O. Medicine progress note for Dr. Bienvenido Roth service: Patient was seen and examined this morning. Patient is complaining of mild pain in his L leg, where he has DVT. Nurse reports he has one small BM during the last shift. Patient denies feeling constipated but just does not like not being able to use a toilet. He is still unable to move his L arm and L leg. he is eating well. Objective - Vital Signs/Intake and Output Vital Signs (last 24 hours): Temp Pulse Resp BP Pulse Ox 98.7 F 92 H 18 102/72 96 08/28/18 04:00 08/28/18 04:00 08/28/18 04:00 08/28/18 04:00 08/28/18 04:00 Intake and Output: 08/27/18 08/28/18 18:59 06:59 Intake Total 1125 690 Output Total 840 675 Balance 285 15 - Medications Medications: Current Medications Folic Acid (Folic Acid) 1 mg PO DAILY [facility] Last Admin: 08/27/18 09:47 Dose: 1 mg Hydrocortisone (Cortizone 0.5% Cream) 1 applic TOP PRN [facility] Last Admin: 08/21/18 18:27 Dose: 1 applic Sodium Chloride (Sodium Chloride 0.9%) 1,000 mls @ 75 mls/hr IV .[id number] [facility] Last Admin: 08/27/18 18:14 Dose: 75 mls/hr Lactobacillus Acidophilus (Bacid Acidophilus) 1 cap PO BID [facility] Last Admin: 08/27/18 18:11 Dose: 1 cap Lidocaine (Lidoderm) 1 ea TD DAILY [facility] Last Admin: 08/27/18 18:11 Dose: 1 ea Metoprolol Tartrate (Lopressor) 5 mg IVP Q6H PRN PRN Reason: Systolic Blood Pressure >160 Metoprolol Tartrate (Lopressor) 50 mg PO BID [facility] Last Admin: 08/27/18 18:11 Dose: 50 mg Multivitamins (Hexavitamin) 1 tab PO DAILY [facility] Last Admin: 11/27/18 09:47 Dose: 1 tab Pantoprazole Sodium (Protonix Ec Tab) 40 mg PO DAILY [facility] Last Admin: 08/27/18 09:47 Dose: 40 mg Polyethylene Glycol (Miralax) 17 gm PO DAILY PRN PRN Reason: Constipation Last Admin: 08/27/18 09:48 Dose: 17 gm Rosuvastatin Calcium (Crestor) 20 mg NG HS [facility] Last Admin: 08/18/18 22:06 Dose: 20 mg Senna/Docusate Sodium (Senokot S 50 Mg-8.6 Mg) 1 tab PO BID [facility] Last Admin: 08/27/18 18:12 Dose: 1 tab Thiamine HCl (Vitamin B1 Tab) 100 mg PO DAILY [facility] Last Admin: 08/27/18 09:48 Dose: 100 mg Zinc Acetate/Diphenhydramine (Benadryl 1% Zinc Acetate -0.1%) 1 cre TOP TID PRN PRN Reason: Itching / Pruritus Last Admin: 08/25/18 09:00 Dose: 1 applic - Labs Labs: 08/28/18 05:46 08/28/18 05:46 PT 14.9 SECONDS (9.7-12.2) H 08/28/18 05:46 INR 1.4 08/28/18 05:46 APTT 26 SECONDS (21-34) 08/28/18 05:46 - Constitutional Appears: Non-toxic, No Acute Distress - Head Exam Head Exam: ATRAUMATIC, NORMAL INSPECTION - Eye Exam Eye Exam: EOMI, Normal appearance, PERRL - ENT Exam ENT Exam: Mucous Membranes Moist - Neck Exam Neck Exam: Normal Inspection - Respiratory Exam Respiratory Exam: Clear to Ausculation Bilateral, NORMAL BREATHING PATTERN. absent: Respiratory Distress - Cardiovascular Exam Cardiovascular Exam: Tachycardia, REGULAR RHYTHM, +S1, +S2 - GI/Abdominal Exam GI & Abdominal Exam: Soft. absent: Distended, Tenderness - Rectal Exam Rectal Exam: Deferred - Extremities Exam Extremities Exam: Normal Inspection - Neurological Exam Neurological Exam: Alert, Awake, Oriented x3 Neuro motor strength exam: Left Upper Extremity: 0, Right Upper Extremity: 5, Left Lower Extremity: 0, Right Lower Extremity: 5 - Psychiatric Exam Psychiatric exam: Flat Affect - Skin Skin Exam: Dry, Intact, Normal Color, Warm Assessment and Plan - Assessment and Plan (Free Text) Assessment: Patient is a 52 yo male with a PMH of gastric ulcers who presented with L-side paralysis. Found to have ischemic stroke then hemorrhagic conversion- suspect embolic stroke 2/2 Afib 2/2 alcohol. MRI on 08/14 showed large R MCA infarct and basal ganglia and posterior frontoparietal hemorrhagic with 11 mm midline shift. Patient continues to have tachycardia and fevers. Possible etiologies- central fever s/p CVA, HCAP/aspiration PNA, PE/DVT. 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 Neurology rec hold anticoag/antiplatelets. Plan: Hemorrhagic conversion of R MCA ischemic CVA- suspect embolic 2/2 Afib 2/2 alcohol use - LUE and LLE paralysis - L shoulder XR: no subluxation/dislocation, no fracture - Repeated CT head continue to show evolution and increase of bleed - Initial CT head 08/10: There is a large on MCA branch territory infarct involving the right basal ganglia and right posterior frontoparietal region extending to the vertex with mass effect with overlying sulcal effacement, compression of the right lateral ventricle and shift of the septum pellucidum from right to left by approximately 4.9 mm.. Slight dilatation of the left lateral ventricle suggesting mild early compressive effects at the level of the left foramen of Garza. No definitive evidence of acute intracranial hemorrhage. - Most recent CT head 08/23: Continued evolution hemorrhagic conversion changes of a relatively large right MCA territory branch infarct. Persistent mass effect with compression of overlying sulci and right lateral ventricle with mild [id number] midline shift. No new hemorrhages. Persistent minimal dilatation left lateral ventricle. - Repeat CT on 08/29 - MRI brain 08/15: There is a relatively large subacute right MCA territory infarct with areas of hemorrhage in the basal ganglia and right posterior frontoparietal watershed zone as described. Persistent mass effect with compression of the right lateral ventricle and [id number] midline shift with septum pellucidum located approximately 11 mm to left of midline. Mild on dilatation left lateral ventricle due to mild compressive effects at the level of the left foramen of Monro. - Aspiration precautions - Seizure precautions - Hold anticoagulation - Crestor 20 mg PO QHS- hold due to transaminitis - Lipid panel: choles 271, LDL 184, HDL 59, TG 100 - EKG: sinus tachycardia - Echo with bubble study: no thrombus, no PFO - R PICC - Neurosurgery consulted (Naomy)- no intervention - Neurology consulted (Shavonne/Dain)- hold anticoag - Cardiology consulted (Neal)- no need for DAMIEN - PT/OT- recommend acute rehab - TAPPER HELPER consulted- advanced bite size diet/thin liquids - SW/CM consulted- Jeannette has attempted to contact patient's son in [place] on multiple occasions. Son has not answered phone and there is no option to leave voicemail Pulmonary embolism and LLE Deep vein thrombosis - D-dimer elevated (3912) - Leukocytosis improving - CTA chest: extensive pulmonary thromboembolism - LE Dopplers: extensive left lower extremity DVT - Hold anticoagulation - IVC filter 08/20 - Hypercoagulable work-up- so far negative - Hem/onc consulted (Mariola) - Vascular surgery consulted (Shyla)- s/p IVC filter on 08/20 Sinus tachycardia, fevers, improving- suspect 2/2 PE/DVT +/- central fevers 2/2 CVA - Most recent fever 100.6 on 08/22 8 AM - No changes to rate control meds as to not lower BP (already low normal) - Start NS @ 75 mL/hr - Procal low (0.12) - EKG: sinus tachycardia (130s)- HR now 100-110s sinus - Blood Cx no growth - Repeat no growth - Echo: EF 60-65%, no abnormalities, no vegetations - D-dimer elevated (3912) - CTA chest: extensive pulmonary thromboembolism - LE Dopplers: extensive left lower extremity DVT - Lopressor 50 mg PO BID - Lopressor 5 mg IV Q6H PRN Transaminitis, improving - Discontinue Tylenol, avoid hepatotoxic drugs - Abd u/s: no significant or acute findings - Hepatitis panel negative - HIV pending Low back pain - Lidoderm patch - Avoid Tylenol due to LFTs, avoid NSAIDs due to hemorrhagic stroke Alcohol use disorder - MV daily - Thiamine 100 mg PO daily - Folate 1 g PO daily - Cessation counseling Constipation, improved - Senakot BID - Miralax daily PRN Rash, resolved- consistent with urticaria - Topical Benadryl - Topical cortizone 0.5% Pneumonia, resolved- HCAP vs aspiration - Aspiration precautions - CXR: Mild venous congestion. Patchy increased markings at the left lung base with small left pleural effusion. Small nodular density projects over the left lung apex. Cardiomegaly. - Repeat CXR 08/20: no active disease - Lactobacillus acidophilus BID Urinary tract infection, resolved - Urine Cx: Enterococcus faecalis - Repeat no growth - Finished 5 day course of Cipro 400 mg IV Q12H - Repeat UA, Cx negative Ppx: VTE: contraindicated, only SCD to RLE GI: PTX 40 mg PO daily Code status: full code Case was discussed with attending, Dr. Bienvenido Castro. <Bienvenido Castro - Last Filed: 08/28/18 18:04> Objective - Vital Signs/Intake and Output Vital Signs (last 24 hours): Temp Pulse Resp BP Pulse Ox 99.1 F 90 20 112/64 96 08/28/18 16:00 08/28/18 16:00 08/28/18 16:00 08/28/18 14:00 08/28/18 14:00 Intake and Output: 08/28/18 08/28/18 06:59 18:59 Intake Total 690 1325 Output Total 675 670 Balance 15 655 - Medications Medications: Current Medications Folic Acid (Folic Acid) 1 mg PO DAILY [facility] Last Admin: 08/28/18 11:23 Dose: 1 mg Hydrocortisone (Cortizone 0.5% Cream) 1 applic TOP PRN [facility] Last Admin: 08/28/18 17:15 Dose: 1 applic Sodium Chloride (Sodium Chloride 0.9%) 1,000 mls @ 75 mls/hr IV .[id number] [facility] Last Admin: 08/28/18 08:00 Dose: 75 mls/hr Lactobacillus Acidophilus (Bacid Acidophilus) 1 cap PO BID [facility] Last Admin: 08/28/18 17:14 Dose: 1 cap Lidocaine (Lidoderm) 1 ea TD DAILY [facility] Last Admin: 08/27/18 18:11 Dose: 1 ea Metoprolol Tartrate (Lopressor) 5 mg IVP Q6H PRN PRN Reason: Systolic Blood Pressure >160 Metoprolol Tartrate (Lopressor) 50 mg PO BID [facility] Last Admin: 08/27/18 18:11 Dose: 50 mg Multivitamins (Hexavitamin) 1 tab PO DAILY [facility] Last Admin: 08/28/18 11:23 Dose: 1 tab Pantoprazole Sodium (Protonix Ec Tab) 40 mg PO DAILY [facility] Last Admin: 08/28/18 11:23 Dose: 40 mg Polyethylene Glycol (Miralax) 17 gm PO DAILY PRN PRN Reason: Constipation Last Admin: 08/28/18 11:22 Dose: 17 gm Rosuvastatin Calcium (Crestor) 20 mg NG HS [facility] Last Admin: 08/18/18 22:06 Dose: 20 mg Senna/Docusate Sodium (Senokot S 50 Mg-8.6 Mg) 1 tab PO BID [facility] Last Admin: 08/28/18 17:16 Dose: 1 tab Thiamine HCl (Vitamin B1 Tab) 100 mg PO DAILY [facility] Last Admin: 08/28/18 11:23 Dose: 100 mg Zinc Acetate/Diphenhydramine (Benadryl 1% Zinc Acetate -0.1%) 1 cre TOP TID PRN PRN Reason: Itching / Pruritus Last Admin: 08/28/18 17:15 Dose: 1 applic - Labs Labs: 08/28/18 05:46 08/28/18 05:46 PT 14.9 SECONDS (9.7-12.2) H 08/28/18 05:46 INR 1.4 08/28/18 05:46 APTT 26 SECONDS (21-34) 08/28/18 05:46 Attending/Attestation - Attestation I have personally seen and examined this patient.: Yes I have fully participated in the care of the patient.: Yes I have reviewed all pertinent clinical information, including history, physical exam and plan: Yes Notes (Text): 08/28/18 17:59 Patient was seen and examined at 5:45 PM with the help of Nurse Lidya who helped to translate in [place]. Care of this patient was discussed in detail with resident Dr. Escobar. U/S Scrotum/Testicles ordered and will need to be followed up: Patient complained of left testicular pulsating discomfort/pain. States that it comes and goes for the past 2 days and didn't say anything as he thought that it would go away. Exam of the testicles/scrotum does not reveal any palpable masses, nontender to palpation, no erythema/warmth/edema, Perineum/Groin is normal with no evidence of cellulitis Spoke with Physical Therapist Mahad: Patient was able to stand with assistance and bear weight with both legs today. However when asked to transfer weight to the left, the left knee buckled and patient could no longer stand. Left Knee Brace/Immobilizer order to assist/support the left knee during PT. Bienvenido Castro D.O.
[2018-08-28] MEDS: Sodium Chloride 0.9% 1,000 ML IV SCH ×2 (08:00→22:23)
[2018-08-28] MEDS: POLYETHYLENE GLYCOL 3350 17 GM/Dose PACKET PO PRN (11:22)
[2018-08-28] MEDS: Pantoprazole 40 mg EC Tab PO SCH (11:23)
[2018-08-28] MEDS: Multiple Vitamins Tab PO SCH (11:23)
[2018-08-28] MEDS: Lactobacillus Acidophilus 500 MU Cap PO SCH ×2 (11:30→17:14)
[2018-08-28] MEDS: Docusate-Senna 50 mg-8.6 mg Tab PO SCH ×2 (11:30→17:16)
--- NOTE | 2018-08-28 13:06 | CP.PCM.PN ---
<Shereen Ramos - Last Filed: 08/28/18 13:16> Subjective - Date & Time of Evaluation Date of Evaluation: 08/28/18 Time of Evaluation: 11:30 - Subjective Subjective: Neurology Consultation Follow-Up Note: Mr. Aguayo was evaluated this morning in the ICU. He was awake, alert, oriented x3. He continues to engage willingly in the follow up interview and exam. He admits that he still cannot move his left arm and left leg but is "trying". Requesting more aggressive PT. Mr. Aguayo denies any new complaints today. Denies headache, visual changes, dizziness, chest pain, shortness of breath, nausea/vomiting. He is status post IVC filter placement 08/20/18. Objective - Vital Signs/Intake and Output Vital Signs (last 24 hours): Temp Pulse Resp BP Pulse Ox 98.7 F 88 18 109/74 94 L 08/28/18 08:00 08/28/18 08:00 08/28/18 08:00 08/28/18 08:00 08/28/18 08:00 Intake and Output: 08/28/18 08/28/18 06:59 18:59 Intake Total 690 1325 Output Total 675 670 Balance 15 655 - Medications Medications: Current Medications Folic Acid (Folic Acid) 1 mg PO DAILY [facility] Last Admin: 08/28/18 11:23 Dose: 1 mg Hydrocortisone (Cortizone 0.5% Cream) 1 applic TOP PRN [facility] Last Admin: 08/21/18 18:27 Dose: 1 applic Sodium Chloride (Sodium Chloride 0.9%) 1,000 mls @ 75 mls/hr IV .[id number] [facility] Last Admin: 08/28/18 08:00 Dose: 75 mls/hr Lactobacillus Acidophilus (Bacid Acidophilus) 1 cap PO BID [facility] Last Admin: 08/27/18 18:11 Dose: 1 cap Lidocaine (Lidoderm) 1 ea TD DAILY [facility] Last Admin: 08/27/18 18:11 Dose: 1 ea Metoprolol Tartrate (Lopressor) 5 mg IVP Q6H PRN PRN Reason: Systolic Blood Pressure >160 Metoprolol Tartrate (Lopressor) 50 mg PO BID [facility] Last Admin: 08/27/18 18:11 Dose: 50 mg Multivitamins (Hexavitamin) 1 tab PO DAILY [facility] Last Admin: 08/28/18 11:23 Dose: 1 tab Pantoprazole Sodium (Protonix Ec Tab) 40 mg PO DAILY [facility] Last Admin: 08/28/18 11:23 Dose: 40 mg Polyethylene Glycol (Miralax) 17 gm PO DAILY PRN PRN Reason: Constipation Last Admin: 08/28/18 11:22 Dose: 17 gm Rosuvastatin Calcium (Crestor) 20 mg NG HS [facility] Last Admin: 08/18/18 22:06 Dose: 20 mg Senna/Docusate Sodium (Senokot S 50 Mg-8.6 Mg) 1 tab PO BID [facility] Last Admin: 08/27/18 18:12 Dose: 1 tab Thiamine HCl (Vitamin B1 Tab) 100 mg PO DAILY [facility] Last Admin: 08/28/18 11:23 Dose: 100 mg Zinc Acetate/Diphenhydramine (Benadryl 1% Zinc Acetate -0.1%) 1 cre TOP TID PRN PRN Reason: Itching / Pruritus Last Admin: 08/25/18 09:00 Dose: 1 applic - Labs Labs: 08/28/18 05:46 08/28/18 05:46 PT 14.9 SECONDS (9.7-12.2) H 08/28/18 05:46 INR 1.4 08/28/18 05:46 APTT 26 SECONDS (21-34) 08/28/18 05:46 - Constitutional Appears: Well, Non-toxic, No Acute Distress - Head Exam Head Exam: ATRAUMATIC, NORMAL INSPECTION, NORMOCEPHALIC - ENT Exam ENT Exam: Mucous Membranes Moist - Neck Exam Neck Exam: Full ROM - Respiratory Exam Respiratory Exam: NORMAL BREATHING PATTERN - Extremities Exam Extremities Exam: Calf Tenderness (left calf 2/2 dvt), Pedal Edema (to LLE 2/2 DVT). absent: Full ROM (left hemiplegia) - Neurological Exam Neurological Exam: Alert, Awake, Oriented x3 Neuro motor strength exam: Left Upper Extremity: 0, Right Upper Extremity: 5, Left Lower Extremity: 0, Right Lower Extremity: 5 Additional comments: Continues to have sensation intact and equal bilaterally; no pronator drift to RUE noted. Still has left hemiplegia; left visual vang and neglect improving--patient can now somewhat detect people and objects on the left side of his room, he moves his head and neck with FROM. - Psychiatric Exam Psychiatric exam: Normal Affect, Normal Mood - Skin Skin Exam: Normal Color Assessment and Plan (1) Stroke Assessment & Plan: Imaging: -CT head (08/23/18): continued evolution hemorrhage conversion changes of a relatively large right MCA territory branch infarct. Persistent mass effect with compression of overlying sulci and right lateral ventricle with mild right to left midline shift. No new hemorrhages. Persistent minimal dilatation left lat eral ventricle. -CT head (08/20/18): interval evolution of large right MCA territory hemorrhagic infarction with mass effect and effacement of the right cerebral cortical sulci, right lateral ventricle and 10 midline shift from right to left. no significant interval change. -CT Head (08/15/18): relatively large right MCA territory infarct again with questionable hemorrhage conversion changes. Mild mass effect with overlying sulcal effacement and compression of the right lateral ventricle lower shift of the spetum pellucidum from left to right by approximately 11mm. Questionable hemorrhagic conversion. -Brain MRI (08/15/18): Relatively large subacute right MCA territory infarct with areas of hemorrhage in the basal ganglkia and right posterio frontoparietal watershed zone as described. persistent mass effect with compression of the right lateral ventricle and right to left midline shift with septum pellucidium approximately 11mm to left of midline. Mild on dilatation left lateral ventricle due to mild compressive effects at level of left foramen of monro. -CT head (08/12/18); hemorrhage conversion of known large right MCA territory infarction with local regional mass effect, diffuse cerenral edema, and 11mm midline from right to left. interval development of right SOTO territory i nfarction involving the paramedian frontal lobe. -CT Head (08/11/18): large on MCA branch territory infarct involving right basal ganglia and right posterior frontoparietal region extending to vertex with mass effect with overlying sulcal effacement, compression of the right lateral ventricle and shift of the septum pellucidum from right to left lateral ventricle suggesting mild early compressive effects at the level of left foramen of Garza. No definitive evidence of acute intracranial hemorrhage. -CT head and neck: no evidence of occlusion, dissection or significant stenosis of the cervical carotid or vertebral circulation. mild atheroscelroritc plaque changes seen both carotid siphons. no evidence of large aneurysm nor vascular malformation. -Mr. Aguayo continues to be stable at this time. -Will repeat CT Head without Contrast on 08/29/18 to evaluate the hemorrhagic conversion of Right MCA infarct. -We will follow up on the results of the repeat CT Heat without contrast once it is completed. -Continue to hold anticoagulation for now as patient is at a high risk of re- bleeding. Mr. Aguayo already has an IVC filter. -Continue aggressive PT/OT, focusing on left side extremities. -Discharge planning for rehab needs to be addressed; patient verbalizes eagerness to continue PT outside of the hospital. -Please notify neuro team if acute changes in condition occur. Case discussed with Dr. Gautam. Status: Acute (2) Pulmonary embolism Assessment & Plan: -Mr. Aguayo has an IVC filter in place. -Continue to hold anticoagulation--repeat CT Head ordered for tomorrow morning to re-evaluate the hemorrhagic conversion of the Right MCA. -Further management per primary team. Case discussed with Dr. Gautam. Status: Acute <Gautam,Gautami - Last Filed: 08/30/18 00:56> Objective - Vital Signs/Intake and Output Vital Signs (last 24 hours): Temp Pulse Resp BP Pulse Ox 98.6 F 100 H 20 99/67 L 97 08/29/18 18:00 08/29/18 18:00 08/29/18 18:00 08/29/18 18:00 08/29/18 18:00 Intake and Output: 08/29/18 08/30/18 18:59 06:59 Intake Total 375 Balance 375 - Medications Medications: Current Medications Folic Acid (Folic Acid) 1 mg PO DAILY [facility] Last Admin: 08/29/18 09:22 Dose: 1 mg Hydrocortisone (Cortizone 0.5% Cream) 1 applic TOP PRN [facility] Last Admin: 08/28/18 17:15 Dose: 1 applic Sodium Chloride (Sodium Chloride 0.9%) 1,000 mls @ 75 mls/hr IV .[id number] [facility] Last Admin: 08/29/18 14:15 Dose: 75 mls/hr Lactobacillus Acidophilus (Bacid Acidophilus) 1 cap PO BID [facility] Last Admin: 08/29/18 18:30 Dose: 1 cap Lidocaine (Lidoderm) 1 ea TD DAILY [facility] Last Admin: 08/29/18 10:00 Dose: 1 ea Lidocaine (Lidoderm) 1 ea TD DAILY [facility] Last Admin: 08/29/18 14:31 Dose: 1 ea Metoprolol Tartrate (Lopressor) 5 mg IVP Q6H PRN PRN Reason: Systolic Blood Pressure >160 Metoprolol Tartrate (Lopressor) 50 mg PO BID [facility] Last Admin: 08/29/18 18:12 Dose: Not Given Multivitamins (Hexavitamin) 1 tab PO DAILY [facility] Last Admin: 08/29/18 09:23 Dose: 1 tab Pantoprazole Sodium (Protonix Ec Tab) 40 mg PO DAILY [facility] Last Admin: 08/29/18 09:23 Dose: 40 mg Polyethylene Glycol (Miralax) 17 gm PO DAILY PRN PRN Reason: Constipation Last Admin: 08/28/18 11:22 Dose: 17 gm Rosuvastatin Calcium (Crestor) 20 mg NG HS [facility] Last Admin: 08/18/18 22:06 Dose: 20 mg Senna/Docusate Sodium (Senokot S 50 Mg-8.6 Mg) 1 tab PO BID [facility] Last Admin: 08/29/18 18:31 Dose: 1 tab Thiamine HCl (Vitamin B1 Tab) 100 mg PO DAILY [facility] Last Admin: 08/29/18 09:22 Dose: 100 mg Zinc Acetate/Diphenhydramine (Benadryl 1% Zinc Acetate -0.1%) 1 cre TOP TID PRN PRN Reason: Itching / Pruritus Last Admin: 08/28/18 17:15 Dose: 1 applic - Labs Labs: 08/29/18 05:45 08/29/18 05:45 PT 14.9 SECONDS (9.7-12.2) H 08/28/18 05:46 INR 1.4 08/28/18 05:46 APTT 26 SECONDS (21-34) 08/28/18 05:46
[2018-08-28] MEDS: Diphenhydramine 1% Cream (1 oz) TOP PRN (17:15)
--- NOTE | 2018-08-28 18:05 | CP.PCM.PCO ---
Physician Communication Note - Physician Communication Note Physician Communication Note: Please see above
[2018-08-28] MEDS: Lidocaine 5% Patch TD SCH (18:17)
[2018-08-29 05:55] LABS: BASO # 0.1 K/uL (0.0-0.2); BASO % 0.6 % (0.0-2.0); EOS # 0.7 K/uL (0.0-0.7); EOS % 6.2 % (0.0-4.0); HEMOGLOBIN 12.8 g/dL (12.0-18.0); LYMPH % 18.4 % (20.0-40.0); MEAN CORPUSCULAR HEMOGLOBIN 29.2 pg (27.0-31.0); MEAN PLATELET VOLUME 8.5 fL (7.2-11.7); MONO # 0.8 K/uL (0.0-0.8); MONO % 7.6 % (0.0-10.0); NEUT # 7.5 K/uL (1.8-7.0); NEUT % 67.2 % (50.0-75.0); NRBC % 0.1 % (0.0-2.0); RBC 4.4 Mil/uL (4.40-5.90); RED CELL DISTRIBUTION WIDTH 12.9 % (11.5-14.5); WHITE BLOOD COUNT 11.1 K/uL (4.8-10.8)
[2018-08-29 06:28] LABS: ALB/GLOB RATIO 0.9 (1.0-2.1); ALBUMIN 3.3 g/dL (3.5-5.0); ALT/SGPT 170 U/L (21-72); AST/SGOT 85 U/L (17-59); BLOOD UREA NITROGEN 11 mg/dL (9-20); CALCIUM 8.6 mg/dl (8.6-10.4); GFR NON-AFRICAN AMERICAN > 60
--- NOTE | 2018-08-29 07:06 | CP.PCM.PN ---
<Olga Lidia Garland - Last Filed: 08/29/18 18:52> Subjective - Date & Time of Evaluation Date of Evaluation: 08/29/18 Time of Evaluation: 07:00 - Subjective Subjective: PGY-1 Olga Lidia Garland D.O. Medicine progress note for Dr. Dougherty service: Patient was seen and examined this morning. He is in chair next to bed. PICC removed. Patient complaining of R leg pain following PT. States his scrotal pain has improved. He is eating well. Now has L knee immobilizer on. Objective - Vital Signs/Intake and Output Vital Signs (last 24 hours): Temp Pulse Resp BP Pulse Ox 99 F 93 H 16 99/67 L 97 08/29/18 04:00 08/29/18 06:00 08/29/18 06:00 08/29/18 06:00 08/29/18 04:00 Intake and Output: 08/29/18 08/29/18 06:59 18:59 Intake Total 1260 Output Total 1200 Balance 60 - Medications Medications: Current Medications Folic Acid (Folic Acid) 1 mg PO DAILY [facility] Last Admin: 08/28/18 11:23 Dose: 1 mg Hydrocortisone (Cortizone 0.5% Cream) 1 applic TOP PRN [facility] Last Admin: 08/28/18 17:15 Dose: 1 applic Sodium Chloride (Sodium Chloride 0.9%) 1,000 mls @ 75 mls/hr IV .[id number] [facility] Last Admin: 08/28/18 22:23 Dose: 75 mls/hr Lactobacillus Acidophilus (Bacid Acidophilus) 1 cap PO BID [facility] Last Admin: 08/28/18 17:14 Dose: 1 cap Lidocaine (Lidoderm) 1 ea TD DAILY [facility] Last Admin: 08/28/18 18:17 Dose: 1 ea Metoprolol Tartrate (Lopressor) 5 mg IVP Q6H PRN PRN Reason: Systolic Blood Pressure >160 Metoprolol Tartrate (Lopressor) 50 mg PO BID [facility] Last Admin: 08/28/18 17:30 Dose: 50 mg Multivitamins (Hexavitamin) 1 tab PO DAILY [facility] Last Admin: 08/28/18 11:23 Dose: 1 tab Pantoprazole Sodium (Protonix Ec Tab) 40 mg PO DAILY [facility] Last Admin: 08/28/18 11:23 Dose: 40 mg Polyethylene Glycol (Miralax) 17 gm PO DAILY PRN PRN Reason: Constipation Last Admin: 08/28/18 11:22 Dose: 17 gm Rosuvastatin Calcium (Crestor) 20 mg NG HS [facility] Last Admin: 08/18/18 22:06 Dose: 20 mg Senna/Docusate Sodium (Senokot S 50 Mg-8.6 Mg) 1 tab PO BID [facility] Last Admin: 08/28/18 17:16 Dose: 1 tab Thiamine HCl (Vitamin B1 Tab) 100 mg PO DAILY [facility] Last Admin: 08/28/18 11:23 Dose: 100 mg Zinc Acetate/Diphenhydramine (Benadryl 1% Zinc Acetate -0.1%) 1 cre TOP TID PRN PRN Reason: Itching / Pruritus Last Admin: 08/28/18 17:15 Dose: 1 applic - Labs Labs: 08/29/18 05:45 08/29/18 05:45 PT 14.9 SECONDS (9.7-12.2) H 08/28/18 05:46 INR 1.4 08/28/18 05:46 APTT 26 SECONDS (21-34) 08/28/18 05:46 - Constitutional Appears: No Acute Distress - Head Exam Head Exam: ATRAUMATIC, NORMAL INSPECTION - Eye Exam Eye Exam: EOMI, Normal appearance - ENT Exam ENT Exam: Mucous Membranes Moist - Neck Exam Neck Exam: Normal Inspection - Respiratory Exam Respiratory Exam: Clear to Ausculation Bilateral, NORMAL BREATHING PATTERN - Cardiovascular Exam Cardiovascular Exam: REGULAR RHYTHM, +S1, +S2 - GI/Abdominal Exam GI & Abdominal Exam: Soft. absent: Tenderness - Rectal Exam Rectal Exam: Deferred - Extremities Exam Extremities Exam: Normal Inspection - Back Exam Back Exam: NORMAL INSPECTION. absent: rash noted - Neurological Exam Neurological Exam: Alert, Awake - Psychiatric Exam Psychiatric exam: Flat Affect - Skin Skin Exam: Dry, Intact, Normal Color, Warm Assessment and Plan - Assessment and Plan (Free Text) Assessment: Patient is a 52 yo male with a PMH of gastric ulcers who presented with L-side paralysis. Found to have ischemic stroke then hemorrhagic conversion- suspect embolic stroke 2/2 Afib 2/2 alcohol. MRI on 08/14 showed large R MCA infarct and basal ganglia and posterior frontoparietal hemorrhagic with 11 mm midline shift. Patient continued to have tachycardia and fevers- discovered PE and LLE DVT. IVC filter placed 08/20. 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 Working with PT. Neurology rec hold anticoag/antiplatelets and do hypercoag w/u. Patient downgraded to med/surg. Plan: Hemorrhagic conversion of R MCA ischemic CVA- suspect embolic / Afib 2/2 alcohol use - LUE and LLE paralysis - L shoulder XR: no subluxation/dislocation, no fracture - Repeated CT head continue to show evolution and increase of bleed - Initial CT head 08/10: There is a large on MCA branch territory infarct involving the right basal ganglia and right posterior frontoparietal region extending to the vertex with mass effect with overlying sulcal effacement, compression of the right lateral ventricle and shift of the septum pellucidum from right to left by approximately 4.9 mm.. Slight dilatation of the left lateral ventricle suggesting mild early compressive effects at the level of the left foramen of Garza. No definitive evidence of acute intracranial hemorrhage. - Most recent CT head 08/29: Continued evolution hemorrhagic conversion changes of a relatively large right MCA territory branch infarct. Improved mass effect and midline shift - MRI brain 08/15: There is a relatively large subacute right MCA territory infarct with areas of hemorrhage in the basal ganglia and right posterior frontoparietal watershed zone as described. Persistent mass effect with compression of the right lateral ventricle and [id number] midline shift with septum pellucidum located approximately 11 mm to left of midline. Mild on dilatation left lateral ventricle due to mild compressive effects at the level of the left foramen of Monro. - Aspiration precautions - Seizure precautions - Hold anticoagulation - Crestor 20 mg PO QHS- hold due to transaminitis - Lipid panel: choles 271, LDL 184, HDL 59, TG 100 - EKG: sinus tachycardia - Echo with bubble study: no thrombus, no PFO - Neurosurgery consulted (Na[facility])- no intervention - Neurology consulted (Shavonne/Dain)- hold anticoag - Cardiology consulted (Neal)- no need for DAMIEN - PT/OT- recommend acute rehab - MACHINE DESIGN ENGINEER consulted- advanced bite size diet/thin liquids - SW/CM consulted- Jeannette has attempted to contact patient's son in [place] on multiple occasions. Son has not answered phone and there is no option to leave voicemail. Pulmonary embolism and LLE Deep vein thrombosis - D-dimer elevated (3912) - Leukocytosis improving - CTA chest: extensive pulmonary thromboembolism - LE Dopplers: extensive left lower extremity DVT - Hold anticoagulation - IVC filter 08/20 - Hypercoagulable work-up- so far negative - Hem/onc consulted ([place]) - Vascular surgery consulted ([place]) Sinus tachycardia, fevers, resolved- suspect 2/2 PE/DVT +/- central fevers 2/2 CVA - Most recent fever 100.6 on 08/22 8 AM - No changes to rate control meds as to not lower BP (already low normal) - NS @ 75 mL/hr - Procal low (0.12) - EKG: sinus tachycardia (130s)- HR now 70-90s sinus - Blood Cx no growth - Repeat no growth - Echo: EF 60-65%, no abnormalities, no vegetations - D-dimer elevated (3912) - CTA chest: extensive pulmonary thromboembolism - LE Dopplers: extensive left lower extremity DVT - Lopressor 50 mg PO BID - Lopressor 5 mg IV Q6H PRN Scrotal pain, improving - Testicular u/s: b/l scrotal thickening Transaminitis, improving - Discontinue Tylenol, avoid hepatotoxic drugs - Abd u/s: no significant or acute findings - Hepatitis panel negative - HIV pending Low back and leg pain pain - CPK wnl - Lidoderm patch - Avoid Tylenol due to LFTs, avoid NSAIDs due to hemorrhagic stroke Alcohol use disorder - MV daily - Thiamine 100 mg PO daily - Folate 1 g PO daily - Cessation counseling Constipation, improved - Senakot BID - Miralax daily PRN Rash, resolved- consistent with urticaria - Topical Benadryl PRN - Topical cortizone 0.5% PRN Pneumonia, resolved- HCAP vs aspiration - Aspiration precautions - CXR: Mild venous congestion. Patchy increased markings at the left lung base with small left pleural effusion. Small nodular density projects over the left lung apex. Cardiomegaly. - Repeat CXR 08/20: no active disease - Lactobacillus acidophilus BID Urinary tract infection, resolved - Urine Cx: Enterococcus faecalis - Repeat no growth - Finished 5 day course of Cipro 400 mg IV Q12H - Repeat UA, Cx negative Ppx: VTE: contraindicated, only SCD to RLE GI: PTX 40 mg PO daily Code status: full code Case was discussed with attending, Dr. Norton. <Mariel Norton V - Last Filed: 10/13/18 16:43> Objective - Vital Signs/Intake and Output Vital Signs (last 24 hours): Temp Pulse Resp BP Pulse Ox 98.0 F 79 20 124/82 98 10/13/18 09:26 10/13/18 09:26 10/13/18 09:26 10/13/18 09:26 10/13/18 09:26 - Labs Labs: 10/11/18 07:55 10/11/18 07:56 PT 14.9 SECONDS (9.7-12.2) H 08/28/18 05:46 INR 1.4 08/28/18 05:46 APTT 26 SECONDS (21-34) 08/28/18 05:46 Assessment and Plan (1) Arterial ischemic stroke, MCA (middle cerebral artery), right, acute Status: Acute (2) ETOH abuse Status: Chronic (3) Impaired glucose tolerance Status: Acute (4) Lipid disorder Status: Acute (5) Leukocytosis Status: Acute (6) DVT (deep venous thrombosis) Status: Acute (7) Pulmonary embolism Status: Acute (8) Prophylactic measure Status: Acute Attending/Attestation - Attestation I have personally seen and examined this patient.: Yes I have fully participated in the care of the patient.: Yes I have reviewed all pertinent clinical information, including history, physical exam and plan: Yes
[2018-08-29] MEDS: Lactobacillus Acidophilus 500 MU Cap PO SCH ×2 (09:22→18:30)
[2018-08-29] MEDS: Docusate-Senna 50 mg-8.6 mg Tab PO SCH ×2 (09:23→18:31)
[2018-08-29] MEDS: Pantoprazole 40 mg EC Tab PO SCH (09:23)
[2018-08-29] MEDS: Multiple Vitamins Tab PO SCH (09:23)
[2018-08-29] MEDS: Lidocaine 5% Patch TD SCH ×2 (10:00→14:31)
--- NOTE | 2018-08-29 10:23 | CT ---
Date of service: 08/29/2018 PROCEDURE: CT HEAD WITHOUT CONTRAST. HISTORY: f/u of hemorrhagic conversion of ischemic cva COMPARISON: The the the the the TECHNIQUE: Axial computed tomography images were obtained through the head/brain without intravenous contrast. Radiation dose: Total exam DLP = 2617.61 mGy-cm. This CT exam was performed using one or more of the following dose reduction techniques: Automated exposure control, adjustment of the mA and/or kV according to patient size, and/or use of iterative reconstruction technique. FINDINGS: HEMORRHAGE: Continued unremarkable evolution hemorrhagic conversion right MCA territory infarct.. Persistent but improved mild mass-effect with less compression of the right lateral ventricle and improved/less midline shift.. No new hemorrhages. BRAIN: As above. VENTRICLES: No evidence of obstructive hydrocephalus. CALVARIUM: Calvarium intact PARANASAL SINUSES: Unremarkable as visualized. No significant inflammatory changes. MASTOID AIR CELLS: Unremarkable as visualized. No inflammatory changes. OTHER FINDINGS: None. IMPRESSION: Previously noted hemorrhagic conversion changes of a right MCA territory branch infarct continue to involve in unremarkable fashion. No new hemorrhages. Persistent but improved mass effect and less midline shift No significant evidence of obstructive hydrocephalus
--- NOTE | 2018-08-29 11:04 | US ---
Date of service: 08/28/2018 HISTORY: left testicular pulsating discomfort pain TECHNIQUE: Realtime sonography through the scrotum with color and doppler flow. COMPARISON: None Available. FINDINGS: RIGHT TESTICLE: Measures 4.3 x 2.1 x 3.5 cm. Homogeneous echotexture. Blood flow is demonstrated. RIGHT EPIDIDYMIS: Unremarkable. LEFT TESTICLE: Measures 4.0 x 2.0 x 2.6 cm. Homogeneous echotexture. Blood flow is demonstrated. LEFT EPIDIDYMIS: Unremarkable. HYDROCELE: None. VARICOCELE: None. OTHER FINDINGS: Bilateral scrotal wall thickening. IMPRESSION: Bilateral scrotal wall thickening. Preliminary impression was provided by [place].
--- NOTE | 2018-08-29 11:56 | CP.PCM.PN ---
Subjective - Date & Time of Evaluation Date of Evaluation: 08/29/18 Time of Evaluation: 11:53 - Subjective Subjective: Neurology Consultation Follow-Up Note: Mr. Aguayo was evaluated this morning in the ICU. He was awake, alert, oriented x3, out of bed sitting in a chair. He is in a good mood today; smiling, laughing, and engaging in the follow up interview and exam. He admits that he still cannot move his left arm and left leg but insists that he is still "trying". Continue to request more aggressive PT/OT. Mr. Aguayo denies any new complaints today. Denies headache, visual changes, dizziness, chest pain, shortness of breath, nausea/vomiting. He is status post IVC filter placement 08/20/18. Objective - Vital Signs/Intake and Output Vital Signs (last 24 hours): Temp Pulse Resp BP Pulse Ox 99 F 93 H 16 99/67 L 97 08/29/18 04:00 08/29/18 06:00 08/29/18 06:00 08/29/18 06:00 08/29/18 04:00 Intake and Output: 08/29/18 08/29/18 06:59 18:59 Intake Total 1260 Output Total 1200 Balance 60 - Medications Medications: Current Medications Folic Acid (Folic Acid) 1 mg PO DAILY [facility] Last Admin: 08/29/18 09:22 Dose: 1 mg Hydrocortisone (Cortizone 0.5% Cream) 1 applic TOP PRN [facility] Last Admin: 08/28/18 17:15 Dose: 1 applic Sodium Chloride (Sodium Chloride 0.9%) 1,000 mls @ 75 mls/hr IV .[id number] [facility] Last Admin: 08/28/18 22:23 Dose: 75 mls/hr Lactobacillus Acidophilus (Bacid Acidophilus) 1 cap PO BID [facility] Last Admin: 08/29/18 09:22 Dose: 1 cap Lidocaine (Lidoderm) 1 ea TD DAILY [facility] Last Admin: 08/28/18 18:17 Dose: 1 ea Metoprolol Tartrate (Lopressor) 5 mg IVP Q6H PRN PRN Reason: Systolic Blood Pressure >160 Metoprolol Tartrate (Lopressor) 50 mg PO BID [facility] Last Admin: 08/29/18 09:23 Dose: 50 mg Multivitamins (Hexavitamin) 1 tab PO DAILY [facility] Last Admin: 08/29/18 09:23 Dose: 1 tab Pantoprazole Sodium (Protonix Ec Tab) 40 mg PO DAILY [facility] Last Admin: 08/29/18 09:23 Dose: 40 mg Polyethylene Glycol (Miralax) 17 gm PO DAILY PRN PRN Reason: Constipation Last Admin: 08/28/18 11:22 Dose: 17 gm Rosuvastatin Calcium (Crestor) 20 mg NG HS [facility] Last Admin: 08/18/18 22:06 Dose: 20 mg Senna/Docusate Sodium (Senokot S 50 Mg-8.6 Mg) 1 tab PO BID [facility] Last Admin: 08/29/18 09:23 Dose: 1 tab Thiamine HCl (Vitamin B1 Tab) 100 mg PO DAILY [facility] Last Admin: 08/29/18 09:22 Dose: 100 mg Zinc Acetate/Diphenhydramine (Benadryl 1% Zinc Acetate -0.1%) 1 cre TOP TID PRN PRN Reason: Itching / Pruritus Last Admin: 08/28/18 17:15 Dose: 1 applic - Labs Labs: 08/29/18 05:45 08/29/18 05:45 PT 14.9 SECONDS (9.7-12.2) H 08/28/18 05:46 INR 1.4 08/28/18 05:46 APTT 26 SECONDS (21-34) 08/28/18 05:46 - Constitutional Appears: Well, Non-toxic, No Acute Distress - Head Exam Head Exam: ATRAUMATIC, NORMAL INSPECTION, NORMOCEPHALIC - Eye Exam Eye Exam: EOMI, Normal appearance Pupil Exam: NORMAL ACCOMODATION, PERRL - ENT Exam ENT Exam: Mucous Membranes Moist - Neck Exam Neck Exam: Full ROM - Respiratory Exam Respiratory Exam: NORMAL BREATHING PATTERN - Cardiovascular Exam Cardiovascular Exam: REGULAR RHYTHM - Extremities Exam Extremities Exam: Calf Tenderness (LLE 2/2 DVT), Pedal Edema (LLE 2/2 DVT). absent: Full ROM (2/2 left hemiplegia) - Neurological Exam Neurological Exam: Alert, Awake, Oriented x3. absent: Normal Gait Neuro motor strength exam: Left Upper Extremity: 0, Right Upper Extremity: 5, Left Lower Extremity: 0, Right Lower Extremity: 5 Additional comments: Continues to have sensation intact and equal bilaterally; no pronator drift to RUE noted. Still has left hemiplegia; left visual vang and neglect improving--patient verbalizes that he can now somewhat detect people and objects on the left side of his room, he moves his head and neck with FROM. - Psychiatric Exam Psychiatric exam: Normal Affect, Normal Mood - Skin Skin Exam: Normal Color Assessment and Plan (1) Stroke Assessment & Plan: Imaging: -CT head (08/29/18): Previously noted hemorrhagic conversion changes of a right MCA territory branch infarct continue to involve in unremarkable fashion. No new hemorrhages. Persistent but improved mass effect and less midline shift. No significant evidence of obstructive hydrocephalus. -CT head (08/23/18): continued evolution hemorrhage conversion changes of a relatively large right MCA territory branch infarct. Persistent mass effect with compression of overlying sulci and right lateral ventricle with mild right to left midline shift. No new hemorrhages. Persistent minimal dilatation left lateral ventricle. -CT head (08/20/18): interval evolution of large right MCA territory hemorrhagic infarction with mass effect and effacement of the right cerebral cortical sulci, right lateral ventricle and 10 midline shift from right to left. no significant interval change. -CT Head (08/15/18): relatively large right MCA territory infarct again with questionable hemorrhage conversion changes. Mild mass effect with overlying sulcal effacement and compression of the right lateral ventricle lower shift of the spetum pellucidum from left to right by approximately 11mm. Questionable hemorrhagic conversion. -Brain MRI (08/15/18): Relatively large subacute right MCA territory infarct with areas of hemorrhage in the basal ganglkia and right posterio frontoparietal watershed zone as described. persistent mass effect with compression of the right lateral ventricle and right to left midline shift with septum pellucidium approximately 11mm to left of midline. Mild on dilatation left lateral ventricle due to mild compressive effects at level of left foramen of monro. -CT head (08/12/18); hemorrhage conversion of known large right MCA territory infarction with local regional mass effect, diffuse cerenral edema, and 11mm midline from right to left. interval development of right SOTO territory infarction involving the paramedian frontal lobe. -CT Head (08/11/18): large on MCA branch territory infarct involving right basal ganglia and right posterior frontoparietal region extending to vertex with mass effect with overlying sulcal effacement, compression of the right lateral ventricle and shift of the septum pellucidum from right to left lateral ventricle suggesting mild early compressive effects at the level of left foramen of Garza. No definitive evidence of acute intracranial hemorrhage. -CT head and neck: no evidence of occlusion, dissection or significant stenosis of the cervical carotid or vertebral circulation. mild atheroscelroritc plaque changes seen both carotid siphons. no evidence of large aneurysm nor vascular malformation. -Mr. Aguayo continues to be stable at this time; he seems to be more positive and engaging in conversations this week. -Repeat CT Head without Contrast done this morning to evaluate the hemorrhagic conversion of Right MCA infarct. -Continue to hold anticoagulation for now as patient is at a high risk of re- bleeding. Mr. Aguayo already has an IVC filter. -Continue aggressive PT/OT, focusing on left side extremities. -Continue speaking to the patient and performing exams on the left side 2/2 improving neglect. Pt verbalizes that he notices a difference. -Discharge planning for rehab needs to be addressed; patient verbalizes eagerness to continue PT outside of the hospital. -Please notify neuro team if acute changes in condition occur. Case discussed with Dr. Gautam. Status: Acute (2) Pulmonary embolism Assessment & Plan: -Mr. Aguayo has an IVC filter in place. -Continue to hold anticoagulation--repeat CT Head ordered for tomorrow morning to re-evaluate the hemorrhagic conversion of the Right MCA. -Further management per primary team. Case discussed with Dr. Gautam. Status: Acute
[2018-08-29] MEDS ORDERED: Lidocaine 5% Patch TD SCH (14:15)
[2018-08-29] MEDS: Sodium Chloride 0.9% 1,000 ML IV SCH (14:15)
--- NOTE | 2018-08-30 06:31 | CP.PCM.PN ---
Subjective - Date & Time of Evaluation Date of Evaluation: 08/30/18 Time of Evaluation: 07:40 - Subjective Subjective: PGY-1 Olga Lidia Garland D.O. Medicine progress note for Dr. Dill service: Patient was seen and examined this morning. He has been moved from ICU to med/surg floor. No acute complaints. Denies current significant pain. PICC remov ed yesterday. Objective - Vital Signs/Intake and Output Vital Signs (last 24 hours): Temp Pulse Resp BP Pulse Ox 98.1 F 101 H 20 101/65 95 08/29/18 23:10 08/30/18 03:58 08/29/18 23:10 08/30/18 03:58 08/29/18 23:10 Intake and Output: 08/29/18 08/30/18 18:59 06:59 Intake Total 375 Output Total 400 Balance -25 - Medications Medications: Current Medications Folic Acid (Folic Acid) 1 mg PO DAILY [facility] Last Admin: 08/29/18 09:22 Dose: 1 mg Hydrocortisone (Cortizone 0.5% Cream) 1 applic TOP PRN [facility] Last Admin: 08/28/18 17:15 Dose: 1 applic Sodium Chloride (Sodium Chloride 0.9%) 1,000 mls @ 75 mls/hr IV .[id number] [facility] Last Admin: 08/29/18 14:15 Dose: 75 mls/hr Lactobacillus Acidophilus (Bacid Acidophilus) 1 cap PO BID [facility] Last Admin: 08/29/18 18:30 Dose: 1 cap Lidocaine (Lidoderm) 1 ea TD DAILY [facility] Last Admin: 08/29/18 10:00 Dose: 1 ea Lidocaine (Lidoderm) 1 ea TD DAILY [facility] Last Admin: 08/29/18 14:31 Dose: 1 ea Metoprolol Tartrate (Lopressor) 5 mg IVP Q6H PRN PRN Reason: Systolic Blood Pressure >160 Metoprolol Tartrate (Lopressor) 50 mg PO BID [facility] Last Admin: 08/29/18 18:12 Dose: Not Given Multivitamins (Hexavitamin) 1 tab PO DAILY [facility] Last Admin: 08/29/18 09:23 Dose: 1 tab Pantoprazole Sodium (Protonix Ec Tab) 40 mg PO DAILY [facility] Last Admin: 08/29/18 09:23 Dose: 40 mg Polyethylene Glycol (Miralax) 17 gm PO DAILY PRN PRN Reason: Constipation Last Admin: 08/28/18 11:22 Dose: 17 gm Rosuvastatin Calcium (Crestor) 20 mg NG HS [facility] Last Admin: 08/18/18 22:06 Dose: 20 mg Senna/Docusate Sodium (Senokot S 50 Mg-8.6 Mg) 1 tab PO BID [facility] Last Admin: 08/29/18 18:31 Dose: 1 tab Thiamine HCl (Vitamin B1 Tab) 100 mg PO DAILY [facility] Last Admin: 08/29/18 09:22 Dose: 100 mg Zinc Acetate/Diphenhydramine (Benadryl 1% Zinc Acetate -0.1%) 1 cre TOP TID PRN PRN Reason: Itching / Pruritus Last Admin: 08/28/18 17:15 Dose: 1 applic - Labs Labs: 08/29/18 05:45 08/29/18 05:45 PT 14.9 SECONDS (9.7-12.2) H 08/28/18 05:46 INR 1.4 08/28/18 05:46 APTT 26 SECONDS (21-34) 08/28/18 05:46 - Constitutional Appears: No Acute Distress - Head Exam Head Exam: ATRAUMATIC, NORMAL INSPECTION - Eye Exam Eye Exam: EOMI, Normal appearance, PERRL - ENT Exam ENT Exam: Mucous Membranes Moist - Neck Exam Neck Exam: Normal Inspection - Respiratory Exam Respiratory Exam: Clear to Ausculation Bilateral, NORMAL BREATHING PATTERN - Cardiovascular Exam Cardiovascular Exam: REGULAR RHYTHM, +S1, +S2 - GI/Abdominal Exam GI & Abdominal Exam: Soft. absent: Tenderness - Rectal Exam Rectal Exam: Deferred - Extremities Exam Extremities Exam: Normal Inspection. absent: Pedal Edema - Back Exam Back Exam: NORMAL INSPECTION - Neurological Exam Neurological Exam: Alert, Awake, CN II-XII Intact, Oriented x3 Neuro motor strength exam: Left Upper Extremity: 0, Right Upper Extremity: 5, Left Lower Extremity: 0, Right Lower Extremity: 5 - Psychiatric Exam Psychiatric exam: Flat Affect - Skin Skin Exam: Dry, Intact, Normal Color, Warm Assessment and Plan - Assessment and Plan (Free Text) Assessment: Patient is a 52 yo male with a PMH of gastric ulcers who presented with L-side paralysis. Found to have ischemic stroke then hemorrhagic conversion- suspect embolic stroke 2/2 Afib 2/2 alcohol. MRI on 08/14 showed large R MCA infarct and basal ganglia and posterior frontoparietal hemorrhagic with 11 mm midline shift. Patient continued to have tachycardia and fevers- discovered PE and LLE DVT. IVC filter placed 08/20. 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 Working with PT. Neurology rec hold anticoag/antiplatelets and do hypercoag w/u. Patient downgraded to med/surg. Will obtain psych consult to evaluate for depression. Plan: Hemorrhagic conversion of R MCA ischemic CVA- suspect embolic 11/02 Afib 2/2 alcohol use - LUE and LLE paralysis - L shoulder XR: no subluxation/dislocation, no fracture - Repeated CT head continue to show evolution and increase of bleed - Initial CT head 08/10: There is a large on MCA branch territory infarct involving the right basal ganglia and right posterior frontoparietal region extending to the vertex with mass effect with overlying sulcal effacement, compression of the right lateral ventricle and shift of the septum pellucidum from right to left by approximately 4.9 mm.. Slight dilatation of the left lateral ventricle suggesting mild early compressive effects at the level of the left foramen of Garza. No definitive evidence of acute intracranial hemorrhage. - Most recent CT head 08/29: Continued evolution hemorrhagic conversion changes of a relatively large right MCA territory branch infarct. Improved mass effect and midline shift - MRI brain 08/15: There is a relatively large subacute right MCA territory infarct with areas of hemorrhage in the basal ganglia and right posterior frontoparietal watershed zone as described. Persistent mass effect with compression of the right lateral ventricle and [id number] midline shift with septum pellucidum located approximately 11 mm to left of midline. Mild on dilatation left lateral ventricle due to mild compressive effects at the level of the left foramen of Monro. - Aspiration precautions - Seizure precautions - Hold anticoagulation - Crestor 20 mg PO QHS- hold due to transaminitis - Lipid panel: choles 271, LDL 184, HDL 59, TG 100 - EKG: sinus tachycardia - Echo with bubble study: no thrombus, no PFO - Neurosurgery consulted (Naomy)- no intervention - Neurology consulted (Shavonne/Dain)- hold anticoag - Cardiology consulted (Neal)- no need for DAMIEN - PT/OT- recommend acute rehab - L knee immobilizer - [employer] consulted- advanced bite size diet/thin liquids - SW/CM consulted- Attempted to contact patient's son in [place] on multiple occasions. Son has not answered phone and there is no option to leave voicemail. Also attempting to obtain insurance through patient's work. Pulmonary embolism and LLE Deep vein thrombosis - Leukocytosis resolved - D-dimer elevated (3912) - CTA chest: extensive pulmonary thromboembolism - LE Dopplers: extensive left lower extremity DVT - Hold anticoagulation due to hemorrhagic stroke - IVC filter 08/20 - Hypercoagulable work-up- so far negative - Hem/onc consulted (Mariola) - Vascular surgery consulted (Shyla) Flat affect - Administer PHQ-9 - Psychiatry consulted (Sonya) Sinus tachycardia, fevers, resolved- suspect 2/2 PE/DVT +/- central fevers 2/2 CVA - Most recent fever 100.6 on 08/22 8 AM - No changes to rate control meds as to not lower BP (already low normal) - NS @ 75 mL/hr - Procal low (0.12) - EKG: sinus tachycardia (130s)- HR now 70-90s sinus - Blood Cx no growth - Repeat no growth - Echo: EF 60-65%, no abnormalities, no vegetations - Lopressor 50 mg PO BID - Lopressor 5 mg IV Q6H PRN Scrotal pain, improving - Testicular u/s: b/l scrotal thickening Transaminitis, improving - Avoid hepatotoxic drugs (hold Crestor) - Abd u/s: no significant or acute findings - Hepatitis panel negative - HIV pending Low back and leg pain, stable - CPK wnl - Lidoderm patch - Avoid Tylenol due to LFTs, avoid NSAIDs due to hemorrhagic stroke Alcohol use disorder - MV daily - Thiamine 100 mg PO daily - Folate 1 g PO daily - Cessation counseling Constipation, resolved - Senakot BID - Miralax daily PRN Rash, resolved- consistent with urticaria - Topical Benadryl PRN - Topical cortizone 0.5% PRN Pneumonia, resolved- HCAP vs aspiration - Aspiration precautions - CXR: Mild venous congestion. Patchy increased markings at the left lung base with small left pleural effusion. Small nodular density projects over the left lung apex. Cardiomegaly. - Repeat CXR 08/20: no active disease - Lactobacillus acidophilus BID Urinary tract infection, resolved - Urine Cx: Enterococcus faecalis - Repeat no growth - Finished 5 day course of Cipro 400 mg IV Q12H - Repeat UA, Cx negative Ppx: VTE: contraindicated, only SCD to RLE GI: PTX 40 mg PO daily Code status: full code Case was discussed with attending, Dr. Kimball.
[2018-08-30 07:15] LABS: BASO # 0.1 K/uL (0.0-0.2); BASO % 0.8 % (0.0-2.0); EOS # 0.5 K/uL (0.0-0.7); EOS % 5.5 % (0.0-4.0); HEMOGLOBIN 12.1 g/dL (12.0-18.0); LYMPH % 20.4 % (20.0-40.0); MEAN CELL VOLUME 85.7 fL (80.0-94.0); MEAN CORPUSCULAR HEMOGLOBIN 28.8 pg (27.0-31.0); MEAN CORPUSCULAR HGB CONC 33.6 g/dL (33.0-37.0); MEAN PLATELET VOLUME 8.1 fL (7.2-11.7); MONO # 1.1 K/uL (0.0-0.8); NEUT % 62.3 % (50.0-75.0); RBC 4.21 Mil/uL (4.40-5.90); RED CELL DISTRIBUTION WIDTH 12.9 % (11.5-14.5); WHITE BLOOD COUNT 9.6 K/uL (4.8-10.8)
[2018-08-30 07:47] LABS: ALB/GLOB RATIO 0.8 (1.0-2.1); ALBUMIN 2.9 g/dL (3.5-5.0); ALT/SGPT 139 U/L (21-72); AST/SGOT 73 U/L (17-59); BLOOD UREA NITROGEN 9 mg/dL (9-20); CALCIUM 8.5 mg/dl (8.6-10.4); GFR NON-AFRICAN AMERICAN > 60
[2018-08-30] MEDS: Lidocaine 5% Patch TD SCH ×2 (10:00→10:07)
[2018-08-30] MEDS: Docusate-Senna 50 mg-8.6 mg Tab PO SCH ×2 (10:06→19:54)
[2018-08-30] MEDS: Pantoprazole 40 mg EC Tab PO SCH (10:06)
[2018-08-30] MEDS: POLYETHYLENE GLYCOL 3350 17 GM/Dose PACKET PO PRN (10:06)
[2018-08-30] MEDS: Lactobacillus Acidophilus 500 MU Cap PO SCH ×2 (10:06→19:54)
[2018-08-30] MEDS: Multiple Vitamins Tab PO SCH (10:11)
--- NOTE | 2018-08-30 11:05 | CP.PCM.PN ---
Subjective - Date & Time of Evaluation Date of Evaluation: 08/30/18 Time of Evaluation: 11:05 Objective - Vital Signs/Intake and Output Vital Signs (last 24 hours): Temp Pulse Resp BP Pulse Ox 98.2 F 100 H 18 107/73 96 08/30/18 07:05 08/30/18 07:05 08/30/18 07:05 08/30/18 07:05 08/30/18 07:05 Intake and Output: 08/30/18 08/30/18 06:59 18:59 Intake Total 375 Output Total 400 Balance -25 - Medications Medications: Current Medications Folic Acid (Folic Acid) 1 mg PO DAILY [facility] Last Admin: 08/30/18 10:06 Dose: 1 mg Hydrocortisone (Cortizone 0.5% Cream) 1 applic TOP PRN [facility] Last Admin: 08/28/18 17:15 Dose: 1 applic Sodium Chloride (Sodium Chloride 0.9%) 1,000 mls @ 75 mls/hr IV .[id number] [facility] Last Admin: 08/29/18 14:15 Dose: 75 mls/hr Lactobacillus Acidophilus (Bacid Acidophilus) 1 cap PO BID [facility] Last Admin: 08/30/18 10:06 Dose: 1 cap Lidocaine (Lidoderm) 1 ea TD DAILY [facility] Last Admin: 08/30/18 10:07 Dose: 1 ea Lidocaine (Lidoderm) 1 ea TD DAILY [facility] Last Admin: 08/29/18 14:31 Dose: 1 ea Metoprolol Tartrate (Lopressor) 5 mg IVP Q6H PRN PRN Reason: Systolic Blood Pressure >160 Metoprolol Tartrate (Lopressor) 50 mg PO BID [facility] Last Admin: 08/30/18 10:09 Dose: 50 mg Multivitamins (Hexavitamin) 1 tab PO DAILY [facility] Last Admin: 08/30/18 10:11 Dose: 1 tab Pantoprazole Sodium (Protonix Ec Tab) 40 mg PO DAILY [facility] Last Admin: 08/30/18 10:06 Dose: 40 mg Polyethylene Glycol (Miralax) 17 gm PO DAILY PRN PRN Reason: Constipation Last Admin: 08/30/18 10:06 Dose: 17 gm Rosuvastatin Calcium (Crestor) 20 mg NG HS [facility] Last Admin: 08/18/18 22:06 Dose: 20 mg Senna/Docusate Sodium (Senokot S 50 Mg-8.6 Mg) 1 tab PO BID [facility] Last Admin: 08/30/18 10:06 Dose: 1 tab Thiamine HCl (Vitamin B1 Tab) 100 mg PO DAILY [facility] Last Admin: 08/30/18 10:10 Dose: 100 mg Zinc Acetate/Diphenhydramine (Benadryl 1% Zinc Acetate -0.1%) 1 cre TOP TID PRN PRN Reason: Itching / Pruritus Last Admin: 08/28/18 17:15 Dose: 1 applic - Labs Labs: 08/30/18 07:09 08/30/18 07:09 PT 14.9 SECONDS (9.7-12.2) H 08/28/18 05:46 INR 1.4 08/28/18 05:46 APTT 26 SECONDS (21-34) 08/28/18 05:46 Assessment and Plan (1) Stroke Status: Acute (2) Pulmonary embolism Status: Acute
[2018-08-30] MEDS: Sodium Chloride 0.9% 1,000 ML IV SCH (13:15)
--- NOTE | 2018-08-30 13:19 | CP.PCM.PN ---
Subjective - Date & Time of Evaluation Date of Evaluation: 08/30/18 Time of Evaluation: 13:15 - Subjective Subjective: Patient not evaluated today. Case and imaging discussed with Dr. Gautam. See A/P for new recommendations. Objective - Vital Signs/Intake and Output Vital Signs (last 24 hours): Temp Pulse Resp BP Pulse Ox 98.2 F 100 H 18 107/73 96 08/30/18 07:05 08/30/18 07:05 08/30/18 07:05 08/30/18 07:05 08/30/18 07:05 Intake and Output: 08/30/18 08/30/18 06:59 18:59 Intake Total 375 Output Total 400 Balance -25 - Medications Medications: Current Medications Folic Acid (Folic Acid) 1 mg PO DAILY [facility] Last Admin: 08/30/18 10:06 Dose: 1 mg Hydrocortisone (Cortizone 0.5% Cream) 1 applic TOP PRN [facility] Last Admin: 08/28/18 17:15 Dose: 1 applic Sodium Chloride (Sodium Chloride 0.9%) 1,000 mls @ 75 mls/hr IV .[id number] [facility] Last Admin: 08/30/18 13:15 Dose: 75 mls/hr Lactobacillus Acidophilus (Bacid Acidophilus) 1 cap PO BID [facility] Last Admin: 08/30/18 10:06 Dose: 1 cap Lidocaine (Lidoderm) 1 ea TD DAILY [facility] Last Admin: 08/30/18 10:07 Dose: 1 ea Lidocaine (Lidoderm) 1 ea TD DAILY [facility] Last Admin: 08/30/18 10:00 Dose: Not Given Metoprolol Tartrate (Lopressor) 5 mg IVP Q6H PRN PRN Reason: Systolic Blood Pressure >160 Metoprolol Tartrate (Lopressor) 50 mg PO BID [facility] Last Admin: 08/30/18 10:09 Dose: 50 mg Multivitamins (Hexavitamin) 1 tab PO DAILY [facility] Last Admin: 08/30/18 10:11 Dose: 1 tab Pantoprazole Sodium (Protonix Ec Tab) 40 mg PO DAILY [facility] Last Admin: 08/30/18 10:06 Dose: 40 mg Polyethylene Glycol (Miralax) 17 gm PO DAILY PRN PRN Reason: Constipation Last Admin: 08/30/18 10:06 Dose: 17 gm Rosuvastatin Calcium (Crestor) 20 mg NG HS [facility] Last Admin: 08/18/18 22:06 Dose: 20 mg Senna/Docusate Sodium (Senokot S 50 Mg-8.6 Mg) 1 tab PO BID [facility] Last Admin: 08/30/18 10:06 Dose: 1 tab Thiamine HCl (Vitamin B1 Tab) 100 mg PO DAILY [facility] Last Admin: 08/30/18 10:10 Dose: 100 mg Zinc Acetate/Diphenhydramine (Benadryl 1% Zinc Acetate -0.1%) 1 cre TOP TID PRN PRN Reason: Itching / Pruritus Last Admin: 08/28/18 17:15 Dose: 1 applic - Labs Labs: 08/30/18 07:09 08/30/18 07:09 PT 14.9 SECONDS (9.7-12.2) H 08/28/18 05:46 INR 1.4 08/28/18 05:46 APTT 26 SECONDS (21-34) 08/28/18 05:46 Assessment and Plan (1) Stroke Assessment & Plan: Imaging: -CT head (08/29/18): Previously noted hemorrhagic conversion changes of a right MCA territory branch infarct continue to involve in unremarkable fashion. No new hemorrhages. Persistent but improved mass effect and less midline shift. No significant evidence of obstructive hydrocephalus. -CT head (08/23/18): continued evolution hemorrhage conversion changes of a relatively large right MCA territory branch infarct. Persistent mass effect with compression of overlying sulci and right lateral ventricle with mild right to left midline shift. No new hemorrhages. Persistent minimal dilatation left lateral ventricle. -CT head (08/20/18): interval evolution of large right MCA territory hemorrhagic infarction with mass effect and effacement of the right cerebral cortical sulci, right lateral ventricle and 10 midline shift from right to left. no significant interval change. -CT Head (08/15/18): relatively large right MCA territory infarct again with questionable hemorrhage conversion changes. Mild mass effect with overlying sulcal effacement and compression of the right lateral ventricle lower shift of the spetum pellucidum from left to right by approximately 11mm. Questionable hemorrhagic conversion. -Brain MRI (08/15/18): Relatively large subacute right MCA territory infarct with areas of hemorrhage in the basal ganglkia and right posterio frontoparietal watershed zone as described. persistent mass effect with compression of the right lateral ventricle and right to left midline shift with septum pellucidium approximately 11mm to left of midline. Mild on dilatation left lateral ventricle due to mild compressive effects at level of left foramen of monro. -CT head (08/12/18); hemorrhage conversion of known large right MCA territory infarction with local regional mass effect, diffuse cerenral edema, and 11mm midline from right to left. interval development of right SOTO territory infarction involving the paramedian frontal lobe. -CT Head (08/11/18): large on MCA branch territory infarct involving right basal ganglia and right posterior frontoparietal region extending to vertex with mass effect with overlying sulcal effacement, compression of the right lateral ventricle and shift of the septum pellucidum from right to left lateral ventricle suggesting mild early compressive effects at the level of left foramen of Garza. No definitive evidence of acute intracranial hemorrhage. -CT head and neck: no evidence of occlusion, dissection or significant stenosis of the cervical carotid or vertebral circulation. mild atheroscelroritc plaque changes seen both carotid siphons. no evidence of large aneurysm nor vascular malformation. -Mr. Aguayo continues to be stable at this time; he seems to be more positive and engaging in conversations this week. -Repeat CT Head without Contrast 08/29/18 to evaluate the hemorrhagic conversion of Right MCA infarct. -Continue to hold anticoagulation for now as patient is at a high risk of re- bleeding. Mr. Aguayo already has an IVC filter. -Continue aggressive PT/OT, focusing on left side extremities. -Continue speaking to the patient and performing exams on the left side 2/2 improving neglect. Pt verbalizes that he notices a difference. -Discharge planning for rehab needs to be addressed; patient verbalizes eager ness to continue PT outside of the hospital. We recommend restarting ASA 81 mg PO Daily and Plavix 75 mg PO Daily at the discretion of primary team and cardiology. We still recommend to hold anticoagulants. Monitor for any re-bleeding. We will sign off this case. Please feel free to reconsult neuro or for questions/concerns. Case discussed with Dr. Gautam. Thank you for allowing us to participate in this patient's care. Status: Acute
[2018-08-31] MEDS: Sodium Chloride 0.9% 1,000 ML IV SCH ×3 (02:49→17:48)
[2018-08-31 06:41] LABS: BASO # 0.1 K/uL (0.0-0.2); EOS # 0.5 K/uL (0.0-0.7); EOS % 5.8 % (0.0-4.0); HEMOGLOBIN 12.1 g/dL (12.0-18.0); LYMPH # 1.5 K/uL (1.0-4.3); LYMPH % 16.7 % (20.0-40.0); MEAN CELL VOLUME 86.3 fL (80.0-94.0); MEAN CORPUSCULAR HGB CONC 33.6 g/dL (33.0-37.0); MEAN PLATELET VOLUME 8.2 fL (7.2-11.7); MONO % 10.7 % (0.0-10.0); NEUT # 5.9 K/uL (1.8-7.0); NEUT % 65.8 % (50.0-75.0); RBC 4.16 Mil/uL (4.40-5.90); RED CELL DISTRIBUTION WIDTH 13.3 % (11.5-14.5); WHITE BLOOD COUNT 8.9 K/uL (4.8-10.8)
[2018-08-31 07:19] LABS: ALB/GLOB RATIO 0.8 (1.0-2.1); ALT/SGPT 112 U/L (21-72); AST/SGOT 62 U/L (17-59); BLOOD UREA NITROGEN 8 mg/dL (9-20); CALCIUM 8.4 mg/dl (8.6-10.4); GFR NON-AFRICAN AMERICAN > 60
[2018-08-31] MEDS: Multiple Vitamins Tab PO SCH (09:03)
[2018-08-31] MEDS: Docusate-Senna 50 mg-8.6 mg Tab PO SCH ×2 (09:04→17:45)
[2018-08-31] MEDS: Pantoprazole 40 mg EC Tab PO SCH (09:04)
[2018-08-31] MEDS: Lidocaine 5% Patch TD SCH (09:05)
[2018-08-31] MEDS: Lactobacillus Acidophilus 500 MU Cap PO SCH ×2 (09:06→17:45)
--- NOTE | 2018-08-31 18:55 | CP.PCM.PN ---
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 Eating ok,c/o constipation,denies abdominal pain Objective - Vital Signs/Intake and Output Vital Signs (last 24 hours): Temp Pulse Resp BP Pulse Ox 98.1 F 94 H 20 104/64 96 08/31/18 15:35 08/31/18 15:35 08/31/18 15:35 08/31/18 15:35 08/31/18 15:35 - Medications Medications: Current Medications Aspirin (Ecotrin) 81 mg PO DAILY [facility] Last Admin: 08/31/18 17:45 Dose: 81 mg Folic Acid (Folic Acid) 1 mg PO DAILY [facility] Last Admin: 08/31/18 09:04 Dose: 1 mg Hydrocortisone (Cortizone 0.5% Cream) 1 applic TOP PRN [facility] Last Admin: 08/28/18 17:15 Dose: 1 applic Lactobacillus Acidophilus (Bacid Acidophilus) 1 cap PO BID [facility] Last Admin: 08/31/18 17:45 Dose: 1 cap Lidocaine (Lidoderm) 1 ea TD DAILY [facility] Last Admin: 08/31/18 09:05 Dose: 1 ea Lidocaine (Lidoderm) 1 ea TD DAILY [facility] Last Admin: 08/30/18 10:00 Dose: Not Given Metoprolol Tartrate (Lopressor) 5 mg IVP Q6H PRN PRN Reason: Systolic Blood Pressure >160 Metoprolol Tartrate (Lopressor) 50 mg PO BID [facility] Last Admin: 08/31/18 17:45 Dose: 50 mg Multivitamins (Hexavitamin) 1 tab PO DAILY [facility] Last Admin: 08/31/18 09:03 Dose: 1 tab Pantoprazole Sodium (Protonix Ec Tab) 40 mg PO DAILY [facility] Last Admin: 08/31/18 09:04 Dose: 40 mg Polyethylene Glycol (Miralax) 17 gm PO DAILY PRN PRN Reason: Constipation Last Admin: 08/30/18 10:06 Dose: 17 gm Rosuvastatin Calcium (Crestor) 20 mg NG HS [facility] Last Admin: 08/18/18 22:06 Dose: 20 mg Senna/Docusate Sodium (Senokot S 50 Mg-8.6 Mg) 1 tab PO BID [facility] Last Admin: 08/31/18 17:45 Dose: 1 tab Thiamine HCl (Vitamin B1 Tab) 100 mg PO DAILY [facility] Last Admin: 08/31/18 09:04 Dose: 100 mg Zinc Acetate/Diphenhydramine (Benadryl 1% Zinc Acetate -0.1%) 1 cre TOP TID PRN PRN Reason: Itching / Pruritus Last Admin: 08/28/18 17:15 Dose: 1 applic - Labs Labs: 08/31/18 06:35 08/31/18 06:35 PT 14.9 SECONDS (9.7-12.2) H 08/28/18 05:46 INR 1.4 08/28/18 05:46 APTT 26 SECONDS (21-34) 08/28/18 05:46 - Constitutional Appears: Non-toxic, Chronically Ill - Head Exam Head Exam: NORMAL INSPECTION - Eye Exam Eye Exam: Normal appearance - ENT Exam ENT Exam: Mucous Membranes Moist - Neck Exam Neck Exam: Full ROM - Respiratory Exam Respiratory Exam: Clear to Ausculation Bilateral, NORMAL BREATHING PATTERN - Cardiovascular Exam Cardiovascular Exam: REGULAR RHYTHM - GI/Abdominal Exam GI & Abdominal Exam: Soft, Normal Bowel Sounds - Extremities Exam Extremities Exam: absent: Full ROM - Back Exam Back Exam: NORMAL INSPECTION - Neurological Exam Neuro motor strength exam: Left Upper Extremity: 0, Right Upper Extremity: 5, Left Lower Extremity: 0, Right Lower Extremity: 5 - Psychiatric Exam Psychiatric exam: Normal Affect, Normal Mood - Skin Skin Exam: Dry Assessment and Plan - Assessment and Plan (Free Text) Plan: 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 Slight dilatation of the left lateral ventricle suggesting mild early compressive effects at the level of the left foramen of Garza. No definitive evidence of acute intracranial hemorrhage. - Most recent CT head 08/29: Continued evolution hemorrhagic conversion changes of a relatively large right MCA territory branch infarct. Improved mass effect and midline shift - MRI brain 08/15: There is a relatively large subacute right MCA territory infarct with areas of hemorrhage in the basal ganglia and right posterior frontoparietal watershed zone as described. Persistent mass effect with compression of the right lateral ventricle and [id number] midline shift with septum pellucidum located approximately 11 mm to left of midline. Mild on dilatation left lateral ventricle due to mild compressive effects at the level of the left foramen of Monro. continue Aspiration precautions and seizure precaution Not on anticoagulation due to hemorrhage,,may resume asprin as recommended by neurology statin hold due to transaminitis Echo with bubble study: no thrombus, no PFO Pulmonary embolism and LLE Deep vein thrombosis Hold anticoagulation due to hemorrhagic stroke IVC filter 08/20 Hypercoagulable work-up- so far negative Hem/onc consulted (Mariola),Vascular surgery consulted (Shyla) Sinus tachycardia Echo: EF 60-65%, no abnormalities, no vegetations Lopressor 50 mg PO BID Alcohol use disorder Thiamine and folic acid Constipation, resolved Senakot BID Miralax daily PRN Ppx: VTE: contraindicated, only SCD to RLE GI: PTX 40 mg PO daily
[2018-08-31] MEDS ORDERED: POLYETHYLENE GLYCOL 3350 17 GM/Dose PACKET PO ONE (19:02)
--- NOTE | 2018-09-01 00:49 | CP.PCM.PN ---
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 Pt denies cp sob fc nv, no acute events overnight endosed from nursing, feeding uncomplicated Objective - Vital Signs/Intake and Output Vital Signs (last 24 hours): Temp Pulse Resp BP Pulse Ox 98.1 F 94 H 20 104/64 96 08/31/18 15:35 08/31/18 15:35 08/31/18 15:35 08/31/18 15:35 08/31/18 15:35 - Medications Medications: Current Medications Aspirin (Ecotrin) 81 mg PO DAILY [facility] Last Admin: 08/31/18 17:45 Dose: 81 mg Folic Acid (Folic Acid) 1 mg PO DAILY [facility] Last Admin: 08/31/18 09:04 Dose: 1 mg Hydrocortisone (Cortizone 0.5% Cream) 1 applic TOP PRN [facility] Last Admin: 08/28/18 17:15 Dose: 1 applic Lactobacillus Acidophilus (Bacid Acidophilus) 1 cap PO BID [facility] Last Admin: 08/31/18 17:45 Dose: 1 cap Lidocaine (Lidoderm) 1 ea TD DAILY [facility] Last Admin: 08/31/18 09:05 Dose: 1 ea Lidocaine (Lidoderm) 1 ea TD DAILY [facility] Last Admin: 08/30/18 10:00 Dose: Not Given Metoprolol Tartrate (Lopressor) 5 mg IVP Q6H PRN PRN Reason: Systolic Blood Pressure >160 Metoprolol Tartrate (Lopressor) 50 mg PO BID [facility] Last Admin: 08/31/18 17:45 Dose: 50 mg Multivitamins (Hexavitamin) 1 tab PO DAILY [facility] Last Admin: 08/31/18 09:03 Dose: 1 tab Pantoprazole Sodium (Protonix Ec Tab) 40 mg PO DAILY [facility] Last Admin: 08/31/18 09:04 Dose: 40 mg Polyethylene Glycol (Miralax) 17 gm PO DAILY PRN PRN Reason: Constipation Last Admin: 08/30/18 10:06 Dose: 17 gm Rosuvastatin Calcium (Crestor) 20 mg NG HS [facility] Last Admin: 08/18/18 22:06 Dose: 20 mg Senna/Docusate Sodium (Senokot S 50 Mg-8.6 Mg) 1 tab PO BID [facility] Last Admin: 08/31/18 17:45 Dose: 1 tab Thiamine HCl (Vitamin B1 Tab) 100 mg PO DAILY [facility] Last Admin: 08/31/18 09:04 Dose: 100 mg Zinc Acetate/Diphenhydramine (Benadryl 1% Zinc Acetate -0.1%) 1 cre TOP TID PRN PRN Reason: Itching / Pruritus Last Admin: 08/28/18 17:15 Dose: 1 applic - Labs Labs: 08/31/18 06:35 08/31/18 06:35 PT 14.9 SECONDS (9.7-12.2) H 08/28/18 05:46 INR 1.4 08/28/18 05:46 APTT 26 SECONDS (21-34) 08/28/18 05:46 - Additional Findings Additional findings: - Constitutional Appears: Non-toxic, Chronically Ill - Head Exam Head Exam: NORMAL INSPECTION - Eye Exam Eye Exam: Normal appearance - ENT Exam ENT Exam: Mucous Membranes Moist - Neck Exam Neck Exam: Full ROM - Respiratory Exam Respiratory Exam: Clear to Ausculation Bilateral, NORMAL BREATHING PATTERN - Cardiovascular Exam Cardiovascular Exam: REGULAR RHYTHM - GI/Abdominal Exam GI & Abdominal Exam: Soft, Normal Bowel Sounds - Extremities Exam Extremities Exam: absent: Full ROM - Back Exam Back Exam: NORMAL INSPECTION - Neurological Exam Neuro motor strength exam: Left Upper Extremity: 0, Right Upper Extremity: 5, Left Lower Extremity: 0, Right Lower Extremity: 5 - Psychiatric Exam Psychiatric exam: Normal Affect, Normal Mood - Skin Skin Exam: Dry Assessment and Plan - Assessment and Plan (Free Text) Assessment: Plan: 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 Slight dilatation of the left lateral ventricle suggesting mild early compressive effects at the level of the left foramen of Garza. No definitive evidence of acute intracranial hemorrhage. - Most recent CT head 08/29: Continued evolution hemorrhagic conversion changes of a relatively large right MCA territory branch infarct. Improved mass effect and midline shift - MRI brain 08/15: There is a relatively large subacute right MCA territory infarct with areas of hemorrhage in the basal ganglia and right posterior fr ontoparietal watershed zone as described. Persistent mass effect with compression of the right lateral ventricle and [id number] midline shift with septum pellucidum located approximately 11 mm to left of midline. Mild on dilatation left lateral ventricle due to mild compressive effects at the level of the left foramen of Monro. continue Aspiration precautions and seizure precaution Not on anticoagulation due to hemorrhage,,may resume asprin as recommended by neurology statin hold due to transaminitis Echo with bubble study: no thrombus, no PFO Pulmonary embolism and LLE Deep vein thrombosis Hold anticoagulation due to hemorrhagic stroke IVC filter 08/20 Hypercoagulable work-up- so far negative Hem/onc consulted (Mariola),Vascular surgery consulted (Shyla) Sinus tachycardia Echo: EF 60-65%, no abnormalities, no vegetations Lopressor 50 mg PO BID Alcohol use disorder Thiamine and folic acid Constipation, resolved [place]ot BID Miralax daily PRN Ppx: VTE: contraindicated, only SCD to RLE GI: PTX 40 mg PO daily <Mariel Norton V - Last Filed: 09/01/18 18:46> Objective - Vital Signs/Intake and Output Vital Signs (last 24 hours): Temp Pulse Resp BP Pulse Ox 97.9 F 107 H 20 104/74 96 09/01/18 16:30 09/01/18 16:30 09/01/18 16:30 09/01/18 16:30 09/01/18 16:30 Intake and Output: 09/01/18 09/01/18 06:59 18:59 Output Total 800 Balance -800 - Medications Medications: Current Medications Aspirin (Ecotrin) 81 mg PO DAILY [facility] Last Admin: 09/01/18 09:43 Dose: 81 mg Folic Acid (Folic Acid) 1 mg PO DAILY [facility] Last Admin: 09/01/18 09:43 Dose: 1 mg Hydrocortisone (Cortizone 0.5% Cream) 1 applic TOP PRN [facility] Last Admin: 08/28/18 17:15 Dose: 1 applic Lactobacillus Acidophilus (Bacid Acidophilus) 1 cap PO BID [facility] Last Admin: 09/01/18 17:51 Dose: 1 cap Lidocaine (Lidoderm) 1 ea TD DAILY [facility] Last Admin: 09/01/18 09:45 Dose: 1 ea Lidocaine (Lidoderm) 1 ea TD DAILY [facility] Last Admin: 08/30/18 10:00 Dose: Not Given Metoprolol Tartrate (Lopressor) 5 mg IVP Q6H PRN PRN Reason: Systolic Blood Pressure >160 Metoprolol Tartrate (Lopressor) 50 mg PO BID [facility] Last Admin: 09/01/18 17:51 Dose: 50 mg Multivitamins (Hexavitamin) 1 tab PO DAILY [facility] Last Admin: 09/01/18 09:43 Dose: 1 tab Pantoprazole Sodium (Protonix Ec Tab) 40 mg PO DAILY [facility] Last Admin: 09/01/18 09:44 Dose: 40 mg Polyethylene Glycol (Miralax) 17 gm PO DAILY PRN PRN Reason: Constipation Last Admin: 08/30/18 10:06 Dose: 17 gm Rosuvastatin Calcium (Crestor) 20 mg NG HS [facility] Last Admin: 08/18/18 22:06 Dose: 20 mg Senna/Docusate Sodium (Senokot S 50 Mg-8.6 Mg) 1 tab PO BID [facility] Last Admin: 09/01/18 17:51 Dose: 1 tab Thiamine HCl (Vitamin B1 Tab) 100 mg PO DAILY [facility] Last Admin: 09/01/18 10:01 Dose: 100 mg Zinc Acetate/Diphenhydramine (Benadryl 1% Zinc Acetate -0.1%) 1 cre TOP TID PRN PRN Reason: Itching / Pruritus Last Admin: 08/28/18 17:15 Dose: 1 applic - Labs Labs: 09/01/18 08:10 09/01/18 08:10 PT 14.9 SECONDS (9.7-12.2) H 08/28/18 05:46 INR 1.4 08/28/18 05:46 APTT 26 SECONDS (21-34) 08/28/18 05:46 Assessment and Plan (1) Arterial ischemic stroke, MCA (middle cerebral artery), right, acute Status: Acute (2) ETOH abuse Status: Chronic (3) Impaired glucose tolerance Status: Acute (4) Lipid disorder Status: Acute (5) Leukocytosis Status: Acute (6) DVT (deep venous thrombosis) Status: Acute (7) Pulmonary embolism Status: Acute (8) Prophylactic measure Status: Acute Attending/Attestation - Attestation I have personally seen and examined this patient.: Yes I have fully participated in the care of the patient.: Yes I have reviewed all pertinent clinical information, including history, physical exam and plan: Yes Notes (Text): Patient seen, examined and case discussed with medical record clerk. Patient seen this afternoon. He reports he is doing ok. Patient has mild itchiness over the belly but no rash observed. I spoke with his nurse, knee immobilzer ordered was clarified which is to be used while patient is having active physical therapy not when patient is lying in bed considering that his the leg where he has his DVT (left leg). We will f/u with cardiology regarding Plavix restart. Per latest neurology note, recommend to restart both aspirin and plavix. Patient to continue physical therapy. Patient has elevated LFTs; unable to restart statin yet. Assessment/Plan 1) Pulmonary embolism and Lower deep vein thrombosis * Tachycardia, elevated D-dimer * CT Angio (08/19) showed for extensive pulmonary thromboembolism * Venous doppler: extensive left lower extremity DVT (affected from stroke) * Patient had hemorrhagic conversion from ischemic MCA stroke * we have ordered for protein c/protein s, antiphospholid, factor leiden, anticardiolipin, lupus workup * patient not eligible for TPA (due to hemorrhagic stroke); patient is 10 days out from stroke. * Vascular surgery consulted for IVC filter * completed 08/20/18 * Discussed with ICU and neurology, no anticoagulation * Neurology; IVC filter sufficient, repeat CT head in one week * No scd over the left lower extremity secondary to DVT * patient started on beta omeor to control tachycardia; Lopressor 25mg PO BID * Echo repeat: left ventricle systolic function is normal. EF: 60-65%, no aortic regurgitation is present. no mitral valve regurgitation, no tricuspid valve regurgitation noted, no pulmonic valvular regurgitation. * Hypercoagulable workup * Anticardiolipiin negative * ntiphospholipid Prothrombin Gene: negative * unable to assess at3, protein C, protein S because had had dvt ppx in past (2) Hemorrhagic conversion of a right side MCA stroke Assessment & Plan: * Neurosurgery on board-->no intervention * neurology on board-->not candidate for tpa/nor thrombectomy per neuro notes * Per latest neuro note: recommend for aspirin and plavix if permitted by medicine and cardiology * Aspirin 81mg PO daily restarted 08/31/18 * Seizure precautions * aspiration precautions * hold statin secondary to LFTs * Anticardiolipiin negative * Antiphospholipid Prothrombin Gene: negative * unable to assess at3, protein C, protein S because had had dvt ppx in past * Repeat CT head 08/30/18 Imaging: * CT Head (08/11/18): large on MCA branch territory infarct involving right basal ganglia and right posterior frotnoparietal region extending to vertex with mass effect with overlying sulcal effacement, compression of the right lateral ventricle and shift of the septum pellucidum from right to left lateral ventricle suggesting mild early compressive effects at the level of left foramen of Garza. No definitive evidence of acute intracranial hemorrhage. * CT head and neck: no evidence of occlusion, dissection or significatn stenosis of the cervical caroitd or vertebral circulation. mild atheroscelroritc plauqe changes seen both cartoid siphons. no evidence of large aneurysm nor vascular malformation. * CT head (08/12/18); hemorrhage conversion of known large right MCA territoty infarction with local regional mass effect, diffuse cerenral edema, and 11mm midline from right to left. interval development of right SOTO territory infarction involving the paramedian frontal lobe. * CT Head (08/15/18): relatively large right MCA territory infarct again with questionable hemorrhage conversion changes. Mild mass effect with overlying sulcal effacement and compression of the right lateral ventricle lower shift of the spetum pellucidum from left to right by approximately 11mm. Questionable hemorrhagic conversion * Brain MRI (08/15/18): Relatively large subacute right MCA territory infarct with areas of hemorrhage in the basal ganglkia and right posterio fron toparietal watershed zone as described. persistent mass effect with compression of the right lateral ventricle and right to left midline shift with septum pellucidium approximately 11mm to left of midline. Mild on dilatation left lateral ventricle due to mild compressive effects at level of left foramen of monro. * CT head (08/20/18): interval evolution of large right MCA territory hemorrhagic infarction with mass effect and effacement of the right cerebral cortical sulci, right lateral ventricle and 10 midline shift from right to left. no significant interval change. * CT head (08/23/18): continued evolution hemorrhage conversion changes of a relatively large right MCA territory branch infarct. Persisteent mass effect with compression of overlying sulci and right lateral ventricle with mild right to left midline shift. No new hemorrhages. Persistent minimal dilatation left lateral ventricle. * CT head (08/29/18): previously noted hemorrhagic conversion changes of the right MCA territory branch infarct continue to involve in unremarkable fasion. no new hemorrhages. persistent but improved mass effect and less midline shift. No significant evidence of obstructive hydrocephalus Status: Acute (2) ETOH abuse Assessment & Plan: * Out of window for withdrawal * Thiamine 100mg PO daily * Folic acid 1 mg PO daily * MVI 1 tab PO daily Status: Chronic (3) Impaired glucose tolerance Assessment & Plan: * will need monitoring of his sugars * repeat a1c in one year to prevent overt diabetes Status: Acute (4) Lipid disorder Assessment & Plan: * elevated cholestrol: 271 * LDL: 184 * HDL: 59 * T * held crestor 20mg PO HS given elevated LFTs (5) Leukocytosis Prior urinary tract infection Assessment & Plan: * Blood culture (08/19/18): no growth after 5 days X2 * Urine culture (08/19/18): No growth * Procalcitonin: low * Ciprofloxacin 400mg IVQ12H (started 08/18/18) to complete 08/23/18 d/c cipro * Bacid 1 tab PO BID * Prior Blood culture (08/12/18): no growth after 5 days (6) Tachycardia Assessment & Plan: * patient has extensive PE noted on CT angio and Left lower DVT * repeat echo given right heart strain noted on Ct angio * Echo bubble (08/13/18): limited; negative study; no evidence inter-cavitary shunt. * Echo (08/14/18): normal LV systolic function, normal chamber size, trace to mild TR * c/w Lopressor 50mg PO BID (7) Transaminitis Assessment & Plan: * d/c tylenol secondary to transaminitis * Abdominal US (08/19/18): no significant or acute findings to account for/related to clinical presentation * hepatitis panel: negative * hold statin given elevated in LFTs * improving * when lfts have normalized, then restart statin (8) Constipation (resolved) Assessment & Plan: * Docusate sodium/senna 1 tab PO BID * Miralax daily PRN (9) Hypernatremia (resolved) Assessment & Plan: * normalized (10) Postoperative Fever (resolved) Assessment & Plan: * s/p IVC filter 08/20/18 * Without fever since 08/22/18 * Patient is on Cipro to cover for UTI to finish 08/23/18 (11) Hives (resolving) Assessment & Plan: * Noted over the left side of groin and left side of chest and back * on Hydrocortisone topical as needed * off Benadryl 25mg PO Q8H secondary to LFts * d/c cipro * Patient to complete 6 doses of Solumedrol total (12) Prophylactic measure Assessment & Plan: * chemical anticoagulation contraindicated in light of hemorrhagic conversion of MCA stroke * Correct phone number of son: Yayo at [phone] * PT/OT eval * Aspiration precautions * Seizure precautions * s/p IVC filter 08/20/18 * s/p PICC 08/19/18 * SCDS only to right lower extremity; has DVT in L DVT * Protonix 40mg PO daily * Social work (08/20/18): son has provided information on patient's work insurance-->We will need to f/u regarding status to help place patient for discharge Disposition: patient will need aggressive PT/OT for left sided weakness and immobility.Neurology has allowed for Aspirin and plavix pending clearance from medicine and cardiology. 09/01/18 18:44
[2018-09-01 08:19] LABS: BASO # 0.1 K/uL (0.0-0.2); BASO % 0.8 % (0.0-2.0); EOS # 0.5 K/uL (0.0-0.7); EOS % 4.7 % (0.0-4.0); HEMOGLOBIN 12.1 g/dL (12.0-18.0); LYMPH # 1.7 K/uL (1.0-4.3); LYMPH % 15.9 % (20.0-40.0); MEAN CELL VOLUME 86.2 fL (80.0-94.0); MEAN CORPUSCULAR HEMOGLOBIN 29.3 pg (27.0-31.0); MEAN PLATELET VOLUME 8.6 fL (7.2-11.7); MONO % 9.9 % (0.0-10.0); NEUT # 7.1 K/uL (1.8-7.0); NEUT % 68.7 % (50.0-75.0); RBC 4.13 Mil/uL (4.40-5.90); RED CELL DISTRIBUTION WIDTH 13.1 % (11.5-14.5); WHITE BLOOD COUNT 10.4 K/uL (4.8-10.8)
[2018-09-01 08:51] LABS: ALB/GLOB RATIO 0.8 (1.0-2.1); ALBUMIN 3.1 g/dL (3.5-5.0); ALT/SGPT 100 U/L (21-72); AST/SGOT 72 U/L (17-59); BLOOD UREA NITROGEN 8 mg/dL (9-20); CALCIUM 8.7 mg/dl (8.6-10.4); GFR NON-AFRICAN AMERICAN > 60
[2018-09-01] MEDS: Lactobacillus Acidophilus 500 MU Cap PO SCH ×2 (09:43→17:51)
[2018-09-01] MEDS: Multiple Vitamins Tab PO SCH (09:43)
[2018-09-01] MEDS: Docusate-Senna 50 mg-8.6 mg Tab PO SCH ×2 (09:44→17:51)
[2018-09-01] MEDS: Pantoprazole 40 mg EC Tab PO SCH (09:44)
[2018-09-01] MEDS: Lidocaine 5% Patch TD SCH (09:45)
--- NOTE | 2018-09-01 12:17 | CP.PCM.PCO ---
Physician Communication Note - Physician Communication Note Physician Communication Note: L knee immobilizer for PT/standing only; NO SCD or immobilzer while in bed
[2018-09-02 06:35] LABS: BASO # 0.1 K/uL (0.0-0.2); BASO % 0.8 % (0.0-2.0); EOS # 0.6 K/uL (0.0-0.7); EOS % 6.6 % (0.0-4.0); HEMOGLOBIN 12.1 g/dL (12.0-18.0); LYMPH # 1.5 K/uL (1.0-4.3); LYMPH % 17.3 % (20.0-40.0); MEAN CELL VOLUME 86.2 fL (80.0-94.0); MEAN CORPUSCULAR HEMOGLOBIN 28.7 pg (27.0-31.0); MEAN CORPUSCULAR HGB CONC 33.3 g/dL (33.0-37.0); MEAN PLATELET VOLUME 8.2 fL (7.2-11.7); MONO # 0.9 K/uL (0.0-0.8); MONO % 10.4 % (0.0-10.0); NEUT # 5.6 K/uL (1.8-7.0); NEUT % 64.9 % (50.0-75.0); RBC 4.22 Mil/uL (4.40-5.90); RED CELL DISTRIBUTION WIDTH 13.3 % (11.5-14.5); WHITE BLOOD COUNT 8.6 K/uL (4.8-10.8)
[2018-09-02 06:51] LABS: ALB/GLOB RATIO 0.8 (1.0-2.1); ALBUMIN 3.3 g/dL (3.5-5.0); ALT/SGPT 83 U/L (21-72); AST/SGOT 48 U/L (17-59); BLOOD UREA NITROGEN 9 mg/dL (9-20); CALCIUM 8.6 mg/dl (8.6-10.4); GFR NON-AFRICAN AMERICAN > 60
--- NOTE | 2018-09-02 07:22 | CP.PCM.PN ---
<Olga Lidia Garland - Last Filed: 09/02/18 11:20> Subjective - Date & Time of Evaluation Date of Evaluation: 09/02/18 Time of Evaluation: 07:20 - Subjective Subjective: PGY-1 Olga Lidia Garland D.O. Medicine progress note for Dr. Dougherty service: Patient was seen and examined this morning. He is clinically the same. No acute complaints. He still cannot move his LUE or LLE but is consistently working with PT. He is having BMs. He is eating well. Denies testicular pain/swelling. Denies CANO, chest pain, palpitations. Objective - Vital Signs/Intake and Output Vital Signs (last 24 hours): Temp Pulse Resp BP Pulse Ox 98.1 F 100 H 20 100/68 97 09/01/18 23:35 09/01/18 23:35 09/01/18 23:35 09/02/18 04:24 09/01/18 23:35 Intake and Output: 09/02/18 09/02/18 06:59 18:59 Intake Total 240 Output Total 600 Balance -360 - Medications Medications: Current Medications Aspirin (Ecotrin) 81 mg PO DAILY [facility] Last Admin: 09/01/18 09:43 Dose: 81 mg Folic Acid (Folic Acid) 1 mg PO DAILY [facility] Last Admin: 09/01/18 09:43 Dose: 1 mg Hydrocortisone (Cortizone 0.5% Cream) 1 applic TOP PRN [facility] Last Admin: 08/28/18 17:15 Dose: 1 applic Lactobacillus Acidophilus (Bacid Acidophilus) 1 cap PO BID [facility] Last Admin: 09/01/18 17:51 Dose: 1 cap Lidocaine (Lidoderm) 1 ea TD DAILY [facility] Last Admin: 09/01/18 09:45 Dose: 1 ea Lidocaine (Lidoderm) 1 ea TD DAILY [facility] Last Admin: 08/30/18 10:00 Dose: Not Given Metoprolol Tartrate (Lopressor) 5 mg IVP Q6H PRN PRN Reason: Systolic Blood Pressure >160 Metoprolol Tartrate (Lopressor) 50 mg PO BID [facility] Last Admin: 09/01/18 17:51 Dose: 50 mg Multivitamins (Hexavitamin) 1 tab PO DAILY [facility] Last Admin: 09/01/18 09:43 Dose: 1 tab Pantoprazole Sodium (Protonix Ec Tab) 40 mg PO DAILY [facility] Last Admin: 09/01/18 09:44 Dose: 40 mg Polyethylene Glycol (Miralax) 17 gm PO DAILY PRN PRN Reason: Constipation Last Admin: 08/30/18 10:06 Dose: 17 gm Rosuvastatin Calcium (Crestor) 20 mg NG HS [facility] Last Admin: 08/18/18 22:06 Dose: 20 mg Senna/Docusate Sodium (Senokot S 50 Mg-8.6 Mg) 1 tab PO BID [facility] Last Admin: 09/01/18 17:51 Dose: 1 tab Thiamine HCl (Vitamin B1 Tab) 100 mg PO DAILY [facility] Last Admin: 09/01/18 10:01 Dose: 100 mg Zinc Acetate/Diphenhydramine (Benadryl 1% Zinc Acetate -0.1%) 1 cre TOP TID PRN PRN Reason: Itching / Pruritus Last Admin: 08/28/18 17:15 Dose: 1 applic - Labs Labs: 09/02/18 06:27 09/02/18 06:27 PT 14.9 SECONDS (9.7-12.2) H 08/28/18 05:46 INR 1.4 08/28/18 05:46 APTT 26 SECONDS (21-34) 08/28/18 05:46 - Constitutional Appears: No Acute Distress - Head Exam Head Exam: ATRAUMATIC, NORMAL INSPECTION - Eye Exam Eye Exam: EOMI, Normal appearance, PERRL - ENT Exam ENT Exam: Mucous Membranes Moist - Neck Exam Neck Exam: Normal Inspection - Respiratory Exam Respiratory Exam: Clear to Ausculation Bilateral, NORMAL BREATHING PATTERN - Cardiovascular Exam Cardiovascular Exam: REGULAR RHYTHM, +S1, +S2 - GI/Abdominal Exam GI & Abdominal Exam: Soft. absent: Distended, Tenderness - Rectal Exam Rectal Exam: Deferred - Extremities Exam Extremities Exam: Normal Inspection - Back Exam Back Exam: NORMAL INSPECTION - Neurological Exam Neurological Exam: Alert, Awake, CN II-XII Intact, Oriented x3. absent: Normal Gait Neuro motor strength exam: Left Upper Extremity: 0, Right Upper Extremity: 5, Left Lower Extremity: 0, Right Lower Extremity: 5 - Psychiatric Exam Psychiatric exam: Flat Affect - Skin Skin Exam: Dry, Intact, Normal Color, Warm Assessment and Plan - Assessment and Plan (Free Text) Assessment: Patient is a 52 yo male with a PMH of gastric ulcers who presented with L-side paralysis. Found to have ischemic stroke then hemorrhagic conversion- suspect embolic stroke /2 Afib 2/2 alcohol. MRI on 08/14 showed large R MCA infarct and basal ganglia and posterior frontoparietal hemorrhagic with 11 mm midline shift. Repeat CT continued to show worsening bleed; however most recent shows improvement of midline shift/mass effect. Patient continued to have tachycardia and fevers- discovered PE and LLE DVT. IVC filter placed 08/20. 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 Working with PT. Neurology rec starting ASA 81 and Plavix 75- signed off case. Patient downgraded to med/surg. Psych consult to evaluate for depression. Pending insurance from patient's work to obtain placement for rehab. 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 Slight dilatation of the left lateral ventricle suggesting mild early compressive effects at the level of the left foramen of Garza. No definitive evidence of acute intracranial hemorrhage. - Most recent CT head 08/29: Continued evolution hemorrhagic conversion srinivasan ges of a relatively large right MCA territory branch infarct. Improved mass effect and midline shift - MRI brain 08/15: There is a relatively large subacute right MCA territory infarct with areas of hemorrhage in the basal ganglia and right posterior frontoparietal watershed zone as described. Persistent mass effect with compression of the right lateral ventricle and [id number] midline shift with septum pellucidum located approximately 11 mm to left of midline. Mild on dilatation left lateral ventricle due to mild compressive effects at the level of the left foramen of Monro. - Aspiration precautions - Seizure precautions - Hold therapeutic anticoagulation - ASA 81 mg PO daily - Start Plavix 75 mg PO daily - Crestor 20 mg PO QHS- hold due to transaminitis - Lipid panel: choles 271, LDL 184, HDL 59, TG 100 - EKGs: sinus tachycardia - No Afib seen on telemetry - Echo x2: EF 60-65%, no abnormalities, no vegetations - Echo with bubble study: no thrombus, no PFO - Neurosurgery consulted (Naomy)- no intervention - Neurology consulted (Shavonne/Dain)- hold anticoag but start ASA 81 and Plavix 75 - Cardiology consulted (Neal)- no need for DAMIEN, okay to start ASA 81 and Plavix 75 - PT/OT- recommend acute rehab - L knee immobilizer during PT/standing ONLY - ADAPTED PHYSICAL EDUCATION TEACHER consulted- advanced bite size diet/thin liquids - SW/CM consulted- Attempting to obtain insurance through patient's work. Pulmonary embolism and LLE Deep vein thrombosis - Leukocytosis resolved - D-dimer elevated (3912) - CTA chest 08/19: extensive pulmonary thromboembolism - LE Dopplers 08/19: extensive left lower extremity DVT - Hold anticoagulation due to hemorrhagic stroke - IVC filter 08/20 - Hypercoagulable work-up negative - Hem/onc consulted (Mariola) - Vascular surgery consulted (Shyla) Flat affect - Administer PHQ-9 - Psychiatry consulted (Sonya)- f/u recs Sinus tachycardia, fevers, improving- suspect 2/2 PE/DVT +/- central fevers 2/2 CVA - Most recent fever 100.6 on 08/22 8 AM - No changes to rate control meds as to not lower BP (already low normal) - Procal low (0.12) - EKG: sinus tachycardia (130s)- HR now 90-100s sinus - Blood Cx no growth - Repeat no growth - Echo x2: EF 60-65%, no abnormalities, no vegetations - Lopressor 50 mg PO BID - Lopressor 5 mg IV Q6H PRN Transaminitis, improving - AST/ALT 48/83 - Avoid hepatotoxic drugs (hold Crestor) - Abd u/s: no significant or acute findings - Hepatitis panel negative - HIV pending (received 08/29) Low back and leg pain, stable - CPK wnl - Lidoderm patch - Avoid Tylenol due to LFTs, avoid NSAIDs due to hemorrhagic stroke Alcohol use disorder - MV daily - Thiamine 100 mg PO daily - Folate 1 g PO daily - Cessation counseling Constipation, resolved - Senakot BID - Miralax daily PRN - Fruit juice Rash, resolved- consistent with urticaria - Topical Benadryl PRN - Topical cortizone 0.5% PRN Pneumonia, resolved- HCAP vs aspiration - Aspiration precautions - CXR: Mild venous congestion. Patchy increased markings at the left lung base with small left pleural effusion. Small nodular density projects over the left lung apex. Cardiomegaly. - Repeat CXR 08/20: no active disease - Lactobacillus acidophilus BID Urinary tract infection, resolved - Urine Cx: Enterococcus faecalis - Repeat no growth - Finished 5 day course of Cipro 400 mg IV Q12H - Repeat UA, Cx negative Scrotal pain, resolved - Testicular u/s: b/l scrotal thickening Ppx: VTE: contraindicated, only SCD to RLE GI: PTX 40 mg PO daily Code status: full code Case was discussed with attending, Dr. Norton. <Mariel Norton V - Last Filed: 09/03/18 18:37> Objective - Vital Signs/Intake and Output Vital Signs (last 24 hours): Temp Pulse Resp BP Pulse Ox 97.3 F L 101 H 20 110/50 L 96 09/03/18 15:00 09/03/18 15:00 09/03/18 15:00 09/03/18 15:00 09/03/18 15:00 Intake and Output: 09/03/18 09/03/18 06:59 18:59 Intake Total 350 Output Total 1600 Balance -1250 - Medications Medications: Current Medications Aspirin (Ecotrin) 81 mg PO DAILY [facility] Last Admin: 09/03/18 11:07 Dose: 81 mg Clopidogrel Bisulfate (Plavix) 75 mg PO DAILY [facility] Last Admin: 09/03/18 11:07 Dose: 75 mg Folic Acid (Folic Acid) 1 mg PO DAILY [facility] Last Admin: 09/03/18 11:07 Dose: 1 mg Hydrocortisone (Cortizone 0.5% Cream) 1 applic TOP PRN [facility] Last Admin: 08/28/18 17:15 Dose: 1 applic Lactobacillus Acidophilus (Bacid Acidophilus) 1 cap PO BID [facility] Last Admin: 09/03/18 18:18 Dose: 1 cap Lidocaine (Lidoderm) 1 ea TD DAILY [facility] Last Admin: 09/03/18 11:07 Dose: 1 ea Lidocaine (Lidoderm) 1 ea TD DAILY [facility] Last Admin: 09/03/18 11:09 Dose: 1 ea Metoprolol Tartrate (Lopressor) 5 mg IVP Q6H PRN PRN Reason: Systolic Blood Pressure >160 Metoprolol Tartrate (Lopressor) 50 mg PO BID [facility] Last Admin: 09/03/18 11:19 Dose: Not Given Multivitamins (Hexavitamin) 1 tab PO DAILY [facility] Last Admin: 09/03/18 11:07 Dose: 1 tab Pantoprazole Sodium (Protonix Ec Tab) 40 mg PO DAILY [facility] Last Admin: 09/03/18 11:07 Dose: 40 mg Polyethylene Glycol (Miralax) 17 gm PO DAILY PRN PRN Reason: Constipation Last Admin: 08/30/18 10:06 Dose: 17 gm Rosuvastatin Calcium (Crestor) 20 mg NG HS [facility] Last Admin: 08/18/18 22:06 Dose: 20 mg Senna/Docusate Sodium (Senokot S 50 Mg-8.6 Mg) 1 tab PO BID [facility] Last Admin: 09/03/18 18:21 Dose: 1 tab Thiamine HCl (Vitamin B1 Tab) 100 mg PO DAILY [facility] Last Admin: 09/03/18 11:07 Dose: 100 mg Zinc Acetate/Diphenhydramine (Benadryl 1% Zinc Acetate -0.1%) 1 cre TOP TID PRN PRN Reason: Itching / Pruritus Last Admin: 08/28/18 17:15 Dose: 1 applic - Labs Labs: 09/02/18 06:27 09/02/18 06:27 PT 14.9 SECONDS (9.7-12.2) H 08/28/18 05:46 INR 1.4 08/28/18 05:46 APTT 26 SECONDS (21-34) 08/28/18 05:46 Assessment and Plan (1) Arterial ischemic stroke, MCA (middle cerebral artery), right, acute Status: Acute (2) ETOH abuse Status: Chronic (3) Impaired glucose tolerance Status: Acute (4) Lipid disorder Status: Acute (5) Leukocytosis Status: Acute (6) DVT (deep venous thrombosis) Status: Acute (7) Pulmonary embolism Status: Acute (8) Prophylactic measure Status: Acute Attending/Attestation - Attestation I have personally seen and examined this patient.: Yes I have fully participated in the care of the patient.: Yes I have reviewed all pertinent clinical information, including history, physical exam and plan: Yes Notes (Text): This is late computer entry for 09/02/18. Patient seen, examined, and case discussed with medical sales representative. Patient seen at bedside this morning. Patient has persistent weakness over the left lower and upper extremity secondary to large MCA right stroke. Patient will need aggressive physical therapy and occupational therapy. Discussed with cardiology, patient may restart aspirin/plavix in light of latest neurology recommendation. Unable to start statin given elevated liver function tests. We will need to follow-up with social work to see follow-up from last [facility] with patient's son.
[2018-09-02] MEDS: Potassium Chloride 20 mEq ER Tab PO SCH ×2 (08:49→08:50)
[2018-09-02] MEDS: Pantoprazole 40 mg EC Tab PO SCH (10:15)
[2018-09-02] MEDS: Multiple Vitamins Tab PO SCH (10:15)
[2018-09-02] MEDS: Docusate-Senna 50 mg-8.6 mg Tab PO SCH ×2 (10:16→17:45)
[2018-09-02] MEDS: Lidocaine 5% Patch TD SCH ×2 (10:17→12:09)
[2018-09-02] MEDS: Lactobacillus Acidophilus 500 MU Cap PO SCH ×2 (10:29→17:45)
--- NOTE | 2018-09-03 07:01 | CP.PCM.PN ---
<Nataly Grant L - Last Filed: 09/03/18 13:25> Subjective - Date & Time of Evaluation Date of Evaluation: 09/03/18 Time of Evaluation: 07:01 - Subjective Subjective: Resident Progress Note for Hospitalist Service Patient examined at bedside. No acute events overnight. Patient states that he is eating and drinking well. He states that there have been no changes in his left-sided weakness. His constipation is resolved. Denies fevers, chills, nausea, vomiting, chest pain, shortness of breath, abdominal pain. Objective - Vital Signs/Intake and Output Vital Signs (last 24 hours): Temp Pulse Resp BP Pulse Ox 98.6 F 102 H 20 95/67 L 96 09/02/18 23:40 09/02/18 23:40 09/02/18 23:40 09/02/18 23:40 09/02/18 23:40 Intake and Output: 09/03/18 09/03/18 06:59 18:59 Intake Total 350 Output Total 1600 Balance -1250 - Medications Medications: Current Medications Aspirin (Ecotrin) 81 mg PO DAILY [facility] Last Admin: 09/02/18 10:16 Dose: 81 mg Clopidogrel Bisulfate (Plavix) 75 mg PO DAILY [facility] Last Admin: 09/02/18 10:15 Dose: 75 mg Folic Acid (Folic Acid) 1 mg PO DAILY [facility] Last Admin: 09/02/18 10:15 Dose: 1 mg Hydrocortisone (Cortizone 0.5% Cream) 1 applic TOP PRN [facility] Last Admin: 08/28/18 17:15 Dose: 1 applic Lactobacillus Acidophilus (Bacid Acidophilus) 1 cap PO BID [facility] Last Admin: 09/02/18 17:45 Dose: 1 cap Lidocaine (Lidoderm) 1 ea TD DAILY [facility] Last Admin: 09/02/18 10:17 Dose: 1 ea Lidocaine (Lidoderm) 1 ea TD DAILY [facility] Last Admin: 09/02/18 12:09 Dose: Not Given Metoprolol Tartrate (Lopressor) 5 mg IVP Q6H PRN PRN Reason: Systolic Blood Pressure >160 Metoprolol Tartrate (Lopressor) 50 mg PO BID [facility] Last Admin: 09/02/18 17:44 Dose: Not Given Multivitamins (Hexavitamin) 1 tab PO DAILY [facility] Last Admin: 09/02/18 10:15 Dose: 1 tab Pantoprazole Sodium (Protonix Ec Tab) 40 mg PO DAILY [facility] Last Admin: 09/02/18 10:15 Dose: 40 mg Polyethylene Glycol (Miralax) 17 gm PO DAILY PRN PRN Reason: Constipation Last Admin: 08/30/18 10:06 Dose: 17 gm Rosuvastatin Calcium (Crestor) 20 mg NG HS [facility] Last Admin: 08/18/18 22:06 Dose: 20 mg Senna/Docusate Sodium (Senokot S 50 Mg-8.6 Mg) 1 tab PO BID [facility] Last Admin: 09/02/18 17:45 Dose: 1 tab Thiamine HCl (Vitamin B1 Tab) 100 mg PO DAILY [facility] Last Admin: 09/02/18 10:15 Dose: 100 mg Zinc Acetate/Diphenhydramine (Benadryl 1% Zinc Acetate -0.1%) 1 cre TOP TID PRN PRN Reason: Itching / Pruritus Last Admin: 08/28/18 17:15 Dose: 1 applic - Labs Labs: 09/02/18 06:27 09/02/18 06:27 PT 14.9 SECONDS (9.7-12.2) H 08/28/18 05:46 INR 1.4 08/28/18 05:46 APTT 26 SECONDS (21-34) 08/28/18 05:46 - Additional Findings Additional findings: - Constitutional Appears: No Acute Distress - Head Exam Head Exam: ATRAUMATIC, NORMAL INSPECTION - Eye Exam Eye Exam: EOMI, Normal appearance - ENT Exam ENT Exam: Mucous Membranes Moist - Neck Exam Neck Exam: Normal Inspection - Respiratory Exam Respiratory Exam: Clear to Ausculation Bilateral, NORMAL BREATHING PATTERN - Cardiovascular Exam Cardiovascular Exam: REGULAR RHYTHM, +S1, +S2 - GI/Abdominal Exam GI & Abdominal Exam: Soft. absent: Distended, Tenderness - Extremities Exam Extremities Exam: Normal Inspection - Neurological Exam Neurological Exam: Alert, Awake, CN II-XII Intact, Oriented x3. Neuro motor strength exam: Left Upper Extremity: 0, Right Upper Extremity: 5, Left Lower Extremity: 0, Right Lower Extremity: 5 - Psychiatric Exam Psychiatric exam: Flat Affect - Skin Skin Exam: Dry, Intact, Normal Color, Warm Assessment and Plan - Assessment and Plan (Free Text) Assessment: Patient is a 52 yo male with a PMH of gastric ulcers who presented with L-side paralysis. Found to have ischemic stroke then hemorrhagic conversion- suspect embolic stroke 2/2 Afib 2/2 alcohol. MRI on 08/14 showed large R MCA infarct and basal ganglia and posterior frontoparietal hemorrhagic with 11 mm midline shift. Repeat CT continued to show worsening bleed; however most recent shows improvement of midline shift/mass effect. Patient continued to have tachycardia and fevers- discovered PE and LLE DVT. IVC filter placed 08/20. 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 Working with PT. Neurology rec starting ASA 81 and Plavix 75- signed off case. Patient downgraded to med/surg. Psych consult to evaluate for depression. Pending insurance from patient's work to obtain placement for rehab. 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 Slight dilatation of the left lateral ventricle suggesting mild early compressive effects at the level of the left foramen of Garza. No definitive evidence of acute intracranial hemorrhage. - Most recent CT head 08/29: Continued evolution hemorrhagic conversion changes of a relatively large right MCA territory branch infarct. Improved mass effect and midline shift - MRI brain 08/15: There is a relatively large subacute right MCA territory infarct with areas of hemorrhage in the basal ganglia and right posterior frontoparietal watershed zone as described. Persistent mass effect with compression of the right lateral ventricle and [id number] midline shift with septum pellucidum located approximately 11 mm to left of midline. Mild on dilatation left lateral ventricle due to mild compressive effects at the level of the left foramen of Monro. - Aspiration precautions - Seizure precautions - Hold therapeutic anticoagulation - ASA 81 mg PO daily - Start Plavix 75 mg PO daily - Crestor 20 mg PO QHS- hold due to transaminitis - Lipid panel: choles 271, LDL 184, HDL 59, TG 100 - EKGs: sinus tachycardia - No Afib seen on telemetry - Echo x2: EF 60-65%, no abnormalities, no vegetations - Echo with bubble study: no thrombus, no PFO - Neurosurgery consulted (Naomy)- no intervention - Neurology consulted (Shavonne/Dain)- hold anticoag but start ASA 81 and Plavix 75 - Cardiology consulted (Neal)- no need for DAMIEN, okay to start ASA 81 and Plavix 75 - PT/OT- recommend acute rehab - L knee immobilizer during PT/standing ONLY - CERTIFIED SURGICAL TECHNICIAN consulted- advanced bite size diet/thin liquids - SW/CM consulted- Attempting to obtain insurance through patient's work. Pulmonary embolism and LLE Deep vein thrombosis - Leukocytosis resolved - D-dimer elevated (3912) - CTA chest 08/19: extensive pulmonary thromboembolism - LE Dopplers 08/19: extensive left lower extremity DVT - Hold anticoagulation due to hemorrhagic stroke - IVC filter 08/20 - Hypercoagulable work-up negative - Hem/onc consulted (Mariola) - Vascular surgery consulted (Shyla) Flat affect - Administer PHQ-9 - Psychiatry consulted (Sonya)- f/u recs Sinus tachycardia, fevers, improving- suspect 2/2 PE/DVT +/- central fevers 2/2 CVA - Most recent fever 100.6 on 08/22 8 AM - No changes to rate control meds as to not lower BP (already low normal) - Procal low (0.12) - EKG: sinus tachycardia (130s)- HR now 90-100s sinus - Blood Cx no growth - Repeat no growth - Echo x2: EF 60-65%, no abnormalities, no vegetations - Lopressor 50 mg PO BID - Lopressor 5 mg IV Q6H PRN Transaminitis, improving - AST/ALT 48/83 - Avoid hepatotoxic drugs (hold Crestor) - Abd u/s: no significant or acute findings - Hepatitis panel negative - HIV pending (received 08/29) Low back and leg pain, stable - CPK wnl - Lidoderm patch - Avoid Tylenol due to LFTs, avoid NSAIDs due to hemorrhagic stroke Alcohol use disorder - MV daily - Thiamine 100 mg PO daily - Folate 1 g PO daily - Cessation counseling Constipation, resolved - Senakot BID - Miralax daily PRN - Fruit juice Rash, resolved- consistent with urticaria - Topical Benadryl PRN - Topical cortizone 0.5% PRN Pneumonia, resolved- HCAP vs aspiration - Aspiration precautions - CXR: Mild venous congestion. Patchy increased markings at the left lung base with small left pleural effusion. Small nodular density projects over the left lung apex. Cardiomegaly. - Repeat CXR 08/20: no active disease - Lactobacillus acidophilus BID Urinary tract infection, resolved - Urine Cx: Enterococcus faecalis - Repeat no growth - Finished 5 day course of Cipro 400 mg IV Q12H - Repeat UA, Cx negative Scrotal pain, resolved - Testicular u/s: b/l scrotal thickening Ppx: VTE: contraindicated, only SCD to RLE GI: PTX 40 mg PO daily Code status: full code Case was discussed with attending, Dr. Norton. <Mariel Norton V - Last Filed: 09/03/18 18:45> Objective - Vital Signs/Intake and Output Vital Signs (last 24 hours): Temp Pulse Resp BP Pulse Ox 97.3 F L 101 H 20 110/50 L 96 09/03/18 15:00 09/03/18 15:00 09/03/18 15:00 09/03/18 15:00 09/03/18 15:00 Intake and Output: 09/03/18 09/03/18 06:59 18:59 Intake Total 350 Output Total 1600 Balance -1250 - Medications Medications: Current Medications Aspirin (Ecotrin) 81 mg PO DAILY [facility] Last Admin: 09/03/18 11:07 Dose: 81 mg Clopidogrel Bisulfate (Plavix) 75 mg PO DAILY [facility] Last Admin: 09/03/18 11:07 Dose: 75 mg Folic Acid (Folic Acid) 1 mg PO DAILY [facility] Last Admin: 09/03/18 11:07 Dose: 1 mg Hydrocortisone (Cortizone 0.5% Cream) 1 applic TOP PRN [facility] Last Admin: 08/28/18 17:15 Dose: 1 applic Lactobacillus Acidophilus (Bacid Acidophilus) 1 cap PO BID [facility] Last Admin: 09/03/18 18:18 Dose: 1 cap Lidocaine (Lidoderm) 1 ea TD DAILY [facility] Last Admin: 09/03/18 11:07 Dose: 1 ea Lidocaine (Lidoderm) 1 ea TD DAILY [facility] Last Admin: 09/03/18 11:09 Dose: 1 ea Metoprolol Tartrate (Lopressor) 50 mg PO BID [facility] Last Admin: 09/03/18 11:19 Dose: Not Given Multivitamins (Hexavitamin) 1 tab PO DAILY [facility] Last Admin: 09/03/18 11:07 Dose: 1 tab Pantoprazole Sodium (Protonix Ec Tab) 40 mg PO DAILY [facility] Last Admin: 09/03/18 11:07 Dose: 40 mg Polyethylene Glycol (Miralax) 17 gm PO DAILY PRN PRN Reason: Constipation Last Admin: 08/30/18 10:06 Dose: 17 gm Rosuvastatin Calcium (Crestor) 20 mg NG HS [facility] Last Admin: 08/18/18 22:06 Dose: 20 mg Senna/Docusate Sodium (Senokot S 50 Mg-8.6 Mg) 1 tab PO BID [facility] Last Admin: 09/03/18 18:21 Dose: 1 tab Thiamine HCl (Vitamin B1 Tab) 100 mg PO DAILY [facility] Last Admin: 09/03/18 11:07 Dose: 100 mg Zinc Acetate/Diphenhydramine (Benadryl 1% Zinc Acetate -0.1%) 1 cre TOP TID PRN PRN Reason: Itching / Pruritus Last Admin: 08/28/18 17:15 Dose: 1 applic - Labs Labs: 09/02/18 06:27 09/02/18 06:27 PT 14.9 SECONDS (9.7-12.2) H 08/28/18 05:46 INR 1.4 08/28/18 05:46 APTT 26 SECONDS (21-34) 08/28/18 05:46 Assessment and Plan (1) Arterial ischemic stroke, MCA (middle cerebral artery), right, acute Status: Acute (2) ETOH abuse Status: Chronic (3) Impaired glucose tolerance Status: Acute (4) Lipid disorder Status: Acute (5) Leukocytosis Status: Acute (6) DVT (deep venous thrombosis) Status: Acute (7) Pulmonary embolism Status: Acute (8) Prophylactic measure Status: Acute Attending/Attestation - Attestation I have personally seen and examined this patient.: Yes I have fully participated in the care of the patient.: Yes I have reviewed all pertinent clinical information, including history, physical exam and plan: Yes Notes (Text): patient seen, examined, and case discussed with day-time resident. Patient seen at bedside. Patient attempts to use his right hand to move his left hand but is unable to and left lower limb continues to be weak. patient is tachycardic but more of less controlled with metropolol. We will continue to work for social and case management referral to see if patient is eligible for rehab given the deficits to the stroke.
[2018-09-03] MEDS: Docusate-Senna 50 mg-8.6 mg Tab PO SCH ×2 (11:06→18:21)
[2018-09-03] MEDS: Lactobacillus Acidophilus 500 MU Cap PO SCH ×2 (11:06→18:18)
[2018-09-03] MEDS: Lidocaine 5% Patch TD SCH ×3 (11:07→11:09)
[2018-09-03] MEDS: Pantoprazole 40 mg EC Tab PO SCH (11:07)
[2018-09-03] MEDS: Multiple Vitamins Tab PO SCH (11:07)
[2018-09-04 07:03] LABS: BASO # 0.1 K/uL (0.0-0.2); BASO % 0.9 % (0.0-2.0); EOS # 0.5 K/uL (0.0-0.7); EOS % 6.2 % (0.0-4.0); HEMOGLOBIN 11.6 g/dL (12.0-18.0); LYMPH # 1.9 K/uL (1.0-4.3); LYMPH % 21.5 % (20.0-40.0); MEAN CORPUSCULAR HEMOGLOBIN 28.8 pg (27.0-31.0); MEAN CORPUSCULAR HGB CONC 33.4 g/dL (33.0-37.0); MEAN PLATELET VOLUME 8.4 fL (7.2-11.7); MONO # 0.8 K/uL (0.0-0.8); MONO % 9.3 % (0.0-10.0); NEUT # 5.4 K/uL (1.8-7.0); NEUT % 62.1 % (50.0-75.0); NRBC % 0.1 % (0.0-2.0); RBC 4.02 Mil/uL (4.40-5.90); RED CELL DISTRIBUTION WIDTH 12.9 % (11.5-14.5); WHITE BLOOD COUNT 8.7 K/uL (4.8-10.8)
--- NOTE | 2018-09-04 07:16 | CP.PCM.PN ---
<Olga Lidia Garland - Last Filed: 09/04/18 16:07> Subjective - Date & Time of Evaluation Date of Evaluation: 09/04/18 Time of Evaluation: 07:15 - Subjective Subjective: PGY-1 Olga Lidia Garland D.O. Medicine progress note for Dr. Norton's service: Patient was seen and examined this morning. He is clinically the same. He is working on moving his left arm with his right hand. Denies any pain. Spoke with MAURY Velasco- Patient produced proof of insurance; however, he does not have any rehab benefits. He is applying fro [facility] to cover this hospitalization. Son in [place] was finally able to be contacted; he does not want to assume any responsibility for his father's care. Letter was sent to (lives out of the country) on 09/03 informing her of patient's whereabouts and condition; awaiting for reply. Objective - Vital Signs/Intake and Output Vital Signs (last 24 hours): Temp Pulse Resp BP Pulse Ox 97.2 F L 102 H 20 93/59 L 96 09/03/18 23:55 09/03/18 23:55 09/03/18 23:55 09/03/18 23:55 09/03/18 23:55 Intake and Output: 09/04/18 09/04/18 06:59 18:59 Intake Total 300 Output Total 1150 Balance -850 - Medications Medications: Current Medications Aspirin (Ecotrin) 81 mg PO DAILY [facility] Last Admin: 09/03/18 11:07 Dose: 81 mg Clopidogrel Bisulfate (Plavix) 75 mg PO DAILY [facility] Last Admin: 09/03/18 11:07 Dose: 75 mg Folic Acid (Folic Acid) 1 mg PO DAILY [facility] Last Admin: 09/03/18 11:07 Dose: 1 mg Hydrocortisone (Cortizone 0.5% Cream) 1 applic TOP PRN [facility] Last Admin: 08/28/18 17:15 Dose: 1 applic Lactobacillus Acidophilus (Bacid Acidophilus) 1 cap PO BID [facility] Last Admin: 09/03/18 18:18 Dose: 1 cap Lidocaine (Lidoderm) 1 ea TD DAILY [facility] Last Admin: 09/03/18 11:07 Dose: 1 ea Lidocaine (Lidoderm) 1 ea TD DAILY [facility] Last Admin: 09/03/18 11:09 Dose: 1 ea Metoprolol Tartrate (Lopressor) 50 mg PO BID [facility] Last Admin: 09/03/18 18:45 Dose: Not Given Multivitamins (Hexavitamin) 1 tab PO DAILY [facility] Last Admin: 09/03/18 11:07 Dose: 1 tab Pantoprazole Sodium (Protonix Ec Tab) 40 mg PO DAILY [facility] Last Admin: 09/03/18 11:07 Dose: 40 mg Polyethylene Glycol (Miralax) 17 gm PO DAILY PRN PRN Reason: Constipation Last Admin: 08/30/18 10:06 Dose: 17 gm Rosuvastatin Calcium (Crestor) 20 mg NG HS [facility] Last Admin: 08/18/18 22:06 Dose: 20 mg Senna/Docusate Sodium (Senokot S 50 Mg-8.6 Mg) 1 tab PO BID [facility] Last Admin: 09/03/18 18:21 Dose: 1 tab Thiamine HCl (Vitamin B1 Tab) 100 mg PO DAILY [facility] Last Admin: 09/03/18 11:07 Dose: 100 mg Zinc Acetate/Diphenhydramine (Benadryl 1% Zinc Acetate -0.1%) 1 cre TOP TID PRN PRN Reason: Itching / Pruritus Last Admin: 08/28/18 17:15 Dose: 1 applic - Labs Labs: 09/04/18 06:55 09/02/18 06:27 PT 14.9 SECONDS (9.7-12.2) H 08/28/18 05:46 INR 1.4 08/28/18 05:46 APTT 26 SECONDS (21-34) 08/28/18 05:46 - Constitutional Appears: No Acute Distress - Head Exam Head Exam: ATRAUMATIC, NORMAL INSPECTION, NORMOCEPHALIC - Eye Exam Eye Exam: EOMI, Normal appearance, PERRL - ENT Exam ENT Exam: Mucous Membranes Moist - Neck Exam Neck Exam: Normal Inspection - Respiratory Exam Respiratory Exam: Clear to Ausculation Bilateral, NORMAL BREATHING PATTERN - Cardiovascular Exam Cardiovascular Exam: REGULAR RHYTHM, +S1, +S2 - GI/Abdominal Exam GI & Abdominal Exam: Soft. absent: Tenderness - Rectal Exam Rectal Exam: Deferred - Extremities Exam Extremities Exam: Normal Inspection - Neurological Exam Neurological Exam: Alert, Awake, CN II-XII Intact, Motor Sensory Deficit, Oriented x3. absent: Normal Gait Neuro motor strength exam: Left Upper Extremity: 0, Right Upper Extremity: 5, Left Lower Extremity: 0, Right Lower Extremity: 5 - Psychiatric Exam Psychiatric exam: Flat Affect - Skin Skin Exam: Dry, Intact, Normal Color, Warm Assessment and Plan - Assessment and Plan (Free Text) Assessment: Patient is a 52 yo male with a PMH of gastric ulcers who presented with L-side paralysis. Found to have ischemic stroke then hemorrhagic conversion- suspect embolic stroke 2/2 Afib 2/2 alcohol. MRI on 08/14 showed large R MCA infarct and basal ganglia and posterior frontoparietal hemorrhagic with 11 mm midline shift. Repeat CT continued to show worsening bleed; however most recent shows improvement of midline shift/mass effect. Patient continued to have tachycardia and fevers- discovered PE and LLE DVT. IVC filter placed 08/20. 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 Working with PT. Neurology rec starting ASA 81 and Plavix 75- signed off case. Patient downgraded to med/surg. Psych consult to evaluate for depression. Obtain labs MWF. Plan: Hemorrhagic conversion of R MCA ischemic CVA- suspect embolic 2/2 Afib 2/2 alcohol use - LUE and LLE paralysis- no improvement - L shoulder XR: no subluxation/dislocation, no fracture - L knee immobilizer during PT/standing only - Repeated CT head continue to show evolution/increase of bleed - Initial CT head 08/10: There is a large on MCA branch territory infarct involving the right basal ganglia and right posterior frontoparietal region extending to the vertex with mass effect with overlying sulcal effacement, c ompression of the right lateral ventricle and shift of the septum pellucidum from right to left by approximately 4.9 mm. Slight dilatation of the left lateral ventricle suggesting mild early compressive effects at the level of the left foramen of Garza. No definitive evidence of acute intracranial hemorrhage. - Most recent CT head 08/29: Continued evolution hemorrhagic conversion changes of a relatively large right MCA territory branch infarct. Improved mass effect and midline shift - MRI brain 08/15: There is a relatively large subacute right MCA territory infarct with areas of hemorrhage in the basal ganglia and right posterior frontoparietal watershed zone as described. Persistent mass effect with compression of the right lateral ventricle and [id number] midline shift with septum pellucidum located approximately 11 mm to left of midline. Mild on dilatation left lateral ventricle due to mild compressive effects at the level of the left foramen of Monro. - Aspiration precautions - Seizure precautions - Hold therapeutic anticoagulation - ASA 81 mg PO daily - Start Plavix 75 mg PO daily - Crestor 20 mg PO QHS- restart 09/04 - Lipid panel: choles 271, LDL 184, HDL 59, TG 100 - EKGs: sinus tachycardia - No Afib seen on telemetry - Echo x2: EF 60-65%, no abnormalities, no vegetations - Echo with bubble study: no thrombus, no PFO - Neurosurgery consulted (Naomy)- no intervention - Neurology consulted (Shavonne/Dain)- hold anticoag but start ASA 81 and Plavix 75 - Cardiology consulted (Neal)- no need for DAMIEN, okay to start ASA 81 and Plavix 75 - PT/OT- recommend acute rehab - L knee immobilizer during PT/standing ONLY - FEEDER/FOLDER consulted- advanced bite size diet/thin liquids - SW/CM consulted- waiting to hear back from patient's Pulmonary embolism and LLE Deep vein thrombosis - Leukocytosis resolved - D-dimer elevated (3912) - CTA chest 08/19: extensive pulmonary thromboembolism - LE Dopplers 08/19: extensive left lower extremity DVT - Hold anticoagulation due to hemorrhagic stroke - IVC filter 08/20 - Hypercoagulable work-up negative - Hem/onc consulted (Mariola) - Vascular surgery consulted (Shyla) Flat affect - Administer PHQ-9 - Psychiatry consulted (Sonya)- f/u recs Sinus tachycardia, fevers, improving- suspect 2/2 PE/DVT +/- central fevers 2/2 CVA - Most recent fever 100.6 on 08/22 8 AM - No changes to rate control meds as to not lower BP (already low normal) - Procal low (0.12) - EKG: sinus tachycardia (130s)- HR now 90-100s sinus - Blood Cx no growth - Repeat no growth - Echo x2: EF 60-65%, no abnormalities, no vegetations - Lopressor 50 mg PO BID - Lopressor 5 mg IV Q6H PRN Constipation, improving - Senakot PO BID - Miralax 17 g PO daily Low back and leg pain, stable - CPK wnl - Lidoderm patch - Avoid Tylenol due to LFTs, avoid NSAIDs due to hemorrhagic stroke Alcohol use disorder - MV daily - Thiamine 100 mg PO daily - Folate 1 g PO daily - Cessation counseling [place] use disorder - UDS positive - Cessation counseling Transaminitis, resolved - Continue to monitor CMP - Avoid hepatotoxic drugs - Abd u/s: no significant or acute findings - Hepatitis panel negative - HIV pending (received 08/29) Rash, resolved- consistent with urticaria - Topical Benadryl PRN - Topical cortizone 0.5% PRN Pneumonia, resolved- HCAP vs aspiration - Aspiration precautions - CXR: Mild venous congestion. Patchy increased markings at the left lung base with small left pleural effusion. Small nodular density projects over the left lung apex. Cardiomegaly. - Repeat CXR 08/20: no active disease - Lactobacillus acidophilus BID Urinary tract infection, resolved - Urine Cx: Enterococcus faecalis - Repeat no growth - Finished 5 day course of Cipro 400 mg IV Q12H - Repeat UA, Cx negative Scrotal pain, resolved - Testicular u/s: b/l scrotal thickening Ppx: VTE: contraindicated, only SCD to RLE GI: PTX 40 mg PO daily Code status: full code Case was discussed with attending, Dr. Norton. <Mariel Norton V - Last Filed: 10/13/18 16:44> Objective - Vital Signs/Intake and Output Vital Signs (last 24 hours): Temp Pulse Resp BP Pulse Ox 98.0 F 79 20 124/82 98 10/13/18 09:26 10/13/18 09:26 10/13/18 09:26 10/13/18 09:26 10/13/18 09:26 - Labs Labs: 10/11/18 07:55 10/11/18 07:56 PT 14.9 SECONDS (9.7-12.2) H 08/28/18 05:46 INR 1.4 08/28/18 05:46 APTT 26 SECONDS (21-34) 08/28/18 05:46 Assessment and Plan (1) Arterial ischemic stroke, MCA (middle cerebral artery), right, acute Status: Acute (2) ETOH abuse Status: Chronic (3) Impaired glucose tolerance Status: Acute (4) Lipid disorder Status: Acute (5) Leukocytosis Status: Acute (6) DVT (deep venous thrombosis) Status: Acute (7) Pulmonary embolism Status: Acute (8) Prophylactic measure Status: Acute Attending/Attestation - Attestation I have personally seen and examined this patient.: Yes I have fully participated in the care of the patient.: Yes I have reviewed all pertinent clinical information, including history, physical exam and plan: Yes
[2018-09-04 07:32] LABS: ALB/GLOB RATIO 0.8 (1.0-2.1); ALBUMIN 3.2 g/dL (3.5-5.0); ALT/SGPT 71 U/L (21-72); AST/SGOT 45 U/L (17-59); BLOOD UREA NITROGEN 12 mg/dL (9-20); CALCIUM 8.9 mg/dl (8.6-10.4); GFR NON-AFRICAN AMERICAN > 60
[2018-09-04] MEDS: Lidocaine 5% Patch TD SCH ×2 (09:01)
[2018-09-04] MEDS: Pantoprazole 40 mg EC Tab PO SCH (09:01)
[2018-09-04] MEDS: Docusate-Senna 50 mg-8.6 mg Tab PO SCH ×2 (09:01→17:56)
[2018-09-04] MEDS: Lactobacillus Acidophilus 500 MU Cap PO SCH ×2 (09:01→17:56)
[2018-09-04] MEDS: Multiple Vitamins Tab PO SCH (09:01)
[2018-09-05] MEDS: Pantoprazole 40 mg EC Tab PO SCH (09:28)
[2018-09-05] MEDS: Lidocaine 5% Patch TD SCH ×2 (09:28)
[2018-09-05] MEDS: Lactobacillus Acidophilus 500 MU Cap PO SCH ×2 (09:28→17:55)
[2018-09-05] MEDS: Multiple Vitamins Tab PO SCH (09:28)
[2018-09-05] MEDS: Docusate-Senna 50 mg-8.6 mg Tab PO SCH ×2 (09:28→17:55)
[2018-09-05] MEDS: POLYETHYLENE GLYCOL 3350 17 GM/Dose PACKET PO SCH (09:46)
--- NOTE | 2018-09-05 11:37 | CP.PCM.PN ---
<Chaitanya Magallanes - Last Filed: 09/05/18 14:00> Subjective - Date & Time of Evaluation Date of Evaluation: 09/05/18 Time of Evaluation: 11:42 - Subjective Subjective: PGY-[address] Norton Patient seen and examined at bedside. No acute events overnight. Patient states continues to have complete left sided weakness. Patient was seen by PT yesterday, requiring max assist for sit to stand. Patient complaining of mild eye irritation as well. On dysphagia diet. Patient not complaining of any headache, vision changes, lightheadedness, chest pain. Objective - Vital Signs/Intake and Output Vital Signs (last 24 hours): Temp Pulse Resp BP Pulse Ox 98 F 100 H 18 110/75 97 09/05/18 07:34 09/05/18 07:34 09/05/18 07:34 09/05/18 07:34 09/05/18 07:34 Intake and Output: 09/05/18 09/05/18 06:59 18:59 Output Total 400 Balance -400 - Medications Medications: Current Medications Artificial Tears (Artificial Tears) 0 ml OU BID [facility] Aspirin (Ecotrin) 81 mg PO DAILY [facility] Last Admin: 09/05/18 09:28 Dose: 81 mg Clopidogrel Bisulfate (Plavix) 75 mg PO DAILY [facility] Last Admin: 09/05/18 09:28 Dose: 75 mg Folic Acid (Folic Acid) 1 mg PO DAILY [facility] Last Admin: 09/05/18 09:28 Dose: 1 mg Hydrocortisone (Cortizone 0.5% Cream) 1 applic TOP PRN [facility] Last Admin: 08/28/18 17:15 Dose: 1 applic Lactobacillus Acidophilus (Bacid Acidophilus) 1 cap PO BID [facility] Last Admin: 09/05/18 09:28 Dose: 1 cap Lidocaine (Lidoderm) 1 ea TD DAILY [facility] Last Admin: 09/05/18 09:28 Dose: 1 ea Lidocaine (Lidoderm) 1 ea TD DAILY [facility] Last Admin: 09/05/18 09:28 Dose: 1 ea Metoprolol Tartrate (Lopressor) 50 mg PO BID [facility] Last Admin: 09/05/18 09:29 Dose: Not Given Multivitamins (Hexavitamin) 1 tab PO DAILY [facility] Last Admin: 09/05/18 09:28 Dose: 1 tab Pantoprazole Sodium (Protonix Ec Tab) 40 mg PO DAILY [facility] Last Admin: 12/06/18 09:28 Dose: 40 mg Polyethylene Glycol (Miralax) 17 gm PO DAILY [facility] Last Admin: 09/05/18 09:46 Dose: 17 gm Rosuvastatin Calcium (Crestor) 20 mg PO HS [facility] Last Admin: 09/04/18 21:31 Dose: 20 mg Senna/Docusate Sodium (Senokot S 50 Mg-8.6 Mg) 1 tab PO BID [facility] Last Admin: 09/05/18 09:28 Dose: 1 tab Thiamine HCl (Vitamin B1 Tab) 100 mg PO DAILY [facility] Last Admin: 09/05/18 09:28 Dose: 100 mg Zinc Acetate/Diphenhydramine (Benadryl 1% Zinc Acetate -0.1%) 1 cre TOP TID PRN PRN Reason: Itching / Pruritus Last Admin: 08/28/18 17:15 Dose: 1 applic - Labs Labs: 09/04/18 06:55 09/04/18 06:55 PT 14.9 SECONDS (9.7-12.2) H 08/28/18 05:46 INR 1.4 08/28/18 05:46 APTT 26 SECONDS (21-34) 08/28/18 05:46 - Constitutional Appears: Non-toxic, No Acute Distress - Head Exam Head Exam: ATRAUMATIC, NORMOCEPHALIC - Eye Exam Eye Exam: EOMI - ENT Exam ENT Exam: Mucous Membranes Moist - Respiratory Exam Respiratory Exam: Clear to Ausculation Bilateral, NORMAL BREATHING PATTERN. absent: Rhonchi, Wheezes - Cardiovascular Exam Cardiovascular Exam: RRR, +S1, +S2. absent: Murmur - GI/Abdominal Exam GI & Abdominal Exam: Soft, Normal Bowel Sounds. absent: Tenderness - Extremities Exam Extremities Exam: absent: Pedal Edema, Tenderness - Neurological Exam Neurological Exam: Alert, Awake, CN II-XII Intact, Motor Sensory Deficit, Oriented x3 Neuro motor strength exam: Left Upper Extremity: 0, Right Upper Extremity: 5, Left Lower Extremity: 0, Right Lower Extremity: 5 Additional comments: Muscle strength - LUE/LLE 0/5, RUE/RLE 5/5. Sensation intact throughout. Negative babinsky - Psychiatric Exam Psychiatric exam: Normal Affect, Normal Mood - Skin Skin Exam: Dry, Intact, Normal Color, Warm Assessment and Plan - Assessment and Plan (Free Text) Assessment: Patient is a 52 yo male with a PMH of gastric ulcers who presented with L-side paralysis. Found to have ischemic stroke then hemorrhagic conversion- suspect embolic stroke 2/2 Afib 2/2 alcohol. MRI on 08/14 showed large R MCA infarct and basal ganglia and posterior frontoparietal hemorrhagic with 11 mm midline shift. Repeat CT continued to show worsening bleed; however most recent shows improvement of midline shift/mass effect. Patient continued to have tachycardia and fevers- discovered PE and LLE DVT. IVC filter placed 08/20. 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 Working with PT. Neurology rec starting ASA 81 and Plavix 75- signed off case. Patient downgraded to med/surg. Psych consult to evaluate for depression. Obtain labs MWF. 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 Slight dilatation of the left lateral ventricle suggesting mild early compressive effects at the level of the left foramen of Garza. No definitive evidence of acute intracranial hemorrhage. - Most recent CT head 08/29: Continued evolution hemorrhagic conversion changes of a relatively large right MCA territory branch infarct. Improved mass effect and midline shift - MRI brain 08/15: There is a relatively large subacute right MCA territory infarct with areas of hemorrhage in the basal ganglia and right posterior frontoparietal watershed zone as described. Persistent mass effect with compression of the right lateral ventricle and [id number] midline shift with septum pellucidum located approximately 11 mm to left of midline. Mild on dilatation left lateral ventricle due to mild compressive effects at the level of the left foramen of Garza. - Aspiration precautions - Seizure precautions - Hold therapeutic anticoagulation - ASA 81 mg PO daily - Start Plavix 75 mg PO daily - Crestor 20 mg PO QHS- restart 09/04 - Lipid panel: choles 271, LDL 184, HDL 59, TG 100 - EKGs: sinus tachycardia - No Afib seen on telemetry - Echo x2: EF 60-65%, no abnormalities, no vegetations - Echo with bubble study: no thrombus, no PFO - Neurosurgery consulted (Naomy)- no intervention - Neurology consulted (Shavonne/Dain)- hold anticoag but start ASA 81 and Plavix 75 - Cardiology consulted (Neal)- no need for DAMIEN, okay to start ASA 81 and Plavix 75 - PT/OT- recommend acute rehab - L knee immobilizer during PT/standing ONLY - AUDIT DIRECTOR consulted- advanced bite size diet/thin liquids - SW/CM consulted- waiting to hear back from patient's - Patient's insurance does not cover rehab. Patient applying for [facility], continuing inpatient PT/OT. Pulmonary embolism and LLE Deep vein thrombosis - Leukocytosis resolved - D-dimer elevated (3912) - CTA chest 08/19: extensive pulmonary thromboembolism - LE Dopplers 08/19: extensive left lower extremity DVT - Hold anticoagulation due to hemorrhagic stroke - IVC filter 08/20 - Hypercoagulable work-up negative - Hem/onc consulted (Mariola) - Vascular surgery consulted (Shyal) Flat affect - Administer PHQ-9 - Psychiatry consulted (Sonya)- f/u recs Sinus tachycardia, fevers, improving- suspect 2/2 PE/DVT +/- central fevers 2/2 CVA - Most recent fever 100.6 on 08/22 8 AM - No changes to rate control meds as to not lower BP (already low normal) - Procal low (0.12) - EKG: sinus tachycardia (130s)- HR now 90-100s sinus - Blood Cx no growth - Repeat no growth - Echo x2: EF 60-65%, no abnormalities, no vegetations - Lopressor 50 mg PO BID - Lopressor 5 mg IV Q6H PRN Constipation, improving - Senakot PO BID - Miralax 17 g PO daily Low back and leg pain, stable - CPK wnl - Lidoderm patch - Avoid Tylenol due to LFTs, avoid NSAIDs due to hemorrhagic stroke Alcohol use disorder - MV daily - Thiamine 100 mg PO daily - Folate 1 g PO daily - Cessation counseling [place]iju[place] use disorder - UDS positive - Cessation counseling Transaminitis, resolved - Continue to monitor CMP - Avoid hepatotoxic drugs - Abd u/s: no significant or acute findings - Hepatitis panel negative - HIV pending (received 08/29) Rash, resolved- consistent with urticaria - Topical Benadryl PRN - Topical cortizone 0.5% PRN Pneumonia, resolved- HCAP vs aspiration - Aspiration precautions - CXR: Mild venous congestion. Patchy increased markings at the left lung base with small left pleural effusion. Small nodular density projects over the left lung apex. Cardiomegaly. - Repeat CXR 08/20: no active disease - Lactobacillus acidophilus BID Urinary tract infection, resolved - Urine Cx: Enterococcus faecalis - Repeat no growth - Finished 5 day course of Cipro 400 mg IV Q12H - Repeat UA, Cx negative Scrotal pain, resolved - Testicular u/s: b/l scrotal thickening Ppx: VTE: contraindicated, only SCD to RLE GI: PTX 40 mg PO daily Code status: full code Case was discussed with attending, Dr. Cierra Magallanes, PGY-1 <Mariel Norton V - Last Filed: 10/13/18 16:44> Objective - Vital Signs/Intake and Output Vital Signs (last 24 hours): Temp Pulse Resp BP Pulse Ox 98.0 F 79 20 124/82 98 10/13/18 09:26 10/13/18 09:26 10/13/18 09:26 10/13/18 09:26 10/13/18 09:26 - Labs Labs: 10/11/18 07:55 10/11/18 07:56 PT 14.9 SECONDS (9.7-12.2) H 08/28/18 05:46 INR 1.4 08/28/18 05:46 APTT 26 SECONDS (21-34) 08/28/18 05:46 Assessment and Plan (1) Arterial ischemic stroke, MCA (middle cerebral artery), right, acute Status: Acute (2) ETOH abuse Status: Chronic (3) Impaired glucose tolerance Status: Acute (4) Lipid disorder Status: Acute (5) Leukocytosis Status: Acute (6) DVT (deep venous thrombosis) Status: Acute (7) Pulmonary embolism Status: Acute (8) Prophylactic measure Status: Acute Attending/Attestation - Attestation I have personally seen and examined this patient.: Yes I have fully participated in the care of the patient.: Yes I have reviewed all pertinent clinical information, including history, physical exam and plan: Yes
[2018-09-05] MEDS: Aritificial Tears (15ml) OU SCH (17:55)
[2018-09-06 07:37] LABS: ALB/GLOB RATIO 0.8 (1.0-2.1); ALBUMIN 3.3 g/dL (3.5-5.0); ALT/SGPT 59 U/L (21-72); AST/SGOT 43 U/L (17-59); BLOOD UREA NITROGEN 9 mg/dL (9-20); CALCIUM 8.8 mg/dl (8.6-10.4); GFR NON-AFRICAN AMERICAN > 60
[2018-09-06 07:58] LABS: BASO # 0.1 K/uL (0.0-0.2); BASO % 0.7 % (0.0-2.0); EOS # 0.4 K/uL (0.0-0.7); EOS % 5.2 % (0.0-4.0); HEMOGLOBIN 12.3 g/dL (12.0-18.0); LYMPH # 1.8 K/uL (1.0-4.3); LYMPH % 24.8 % (20.0-40.0); MEAN CELL VOLUME 87.1 fL (80.0-94.0); MEAN CORPUSCULAR HEMOGLOBIN 28.6 pg (27.0-31.0); MEAN CORPUSCULAR HGB CONC 32.8 g/dL (33.0-37.0); MEAN PLATELET VOLUME 8.6 fL (7.2-11.7); MONO # 0.8 K/uL (0.0-0.8); MONO % 10.3 % (0.0-10.0); NEUT # 4.4 K/uL (1.8-7.0); RBC 4.3 Mil/uL (4.40-5.90); RED CELL DISTRIBUTION WIDTH 13.1 % (11.5-14.5); WHITE BLOOD COUNT 7.4 K/uL (4.8-10.8)
[2018-09-06] MEDS: POLYETHYLENE GLYCOL 3350 17 GM/Dose PACKET PO SCH (09:30)
[2018-09-06] MEDS: Aritificial Tears (15ml) OU SCH ×2 (09:30→17:50)
[2018-09-06] MEDS: Pantoprazole 40 mg EC Tab PO SCH (09:31)
[2018-09-06] MEDS: Multiple Vitamins Tab PO SCH (09:31)
[2018-09-06] MEDS: Lidocaine 5% Patch TD SCH ×2 (09:31)
[2018-09-06] MEDS: Docusate-Senna 50 mg-8.6 mg Tab PO SCH ×2 (09:31→17:50)
[2018-09-06] MEDS: Lactobacillus Acidophilus 500 MU Cap PO SCH ×2 (09:31→17:51)
--- NOTE | 2018-09-06 11:02 | CP.PCM.PN ---
<Chaitanya Magallanes - Last Filed: 09/06/18 18:26> Subjective - Date & Time of Evaluation Date of Evaluation: 09/06/18 Time of Evaluation: 10:51 - Subjective Subjective: PGY-[address] Norton Patient seen and examined at bedside. No acute events overnight. Patient states continues to have complete left sided weakness. Patient was seen by PT yesterday, ambulated 5 ft x2 with RW and max assists. Patient continues to complain of left eye irritation. On modified dysphagia diet. Patient not complaining of any headache, vision changes, dizziness, chest pain. PT continuing to see patient today. Discussed with patient that we had suggested removal of knee immobilizer except for during PT to prevent further DVTs and to prevent adhesions. Make sure knee immobilizer remains removed except for PT. Objective - Vital Signs/Intake and Output Vital Signs (last 24 hours): Temp Pulse Resp BP Pulse Ox 97.2 F L 98 H 18 85/55 L 97 09/06/18 07:40 09/06/18 09:32 09/06/18 07:40 09/06/18 09:32 09/06/18 07:40 Intake and Output: 09/06/18 09/06/18 06:59 18:59 Output Total 400 Balance -400 - Medications Medications: Current Medications Artificial Tears (Artificial Tears) 0 ml OU BID [facility] Last Admin: 09/06/18 09:30 Dose: 1 drop Aspirin (Ecotrin) 81 mg PO DAILY [facility] Last Admin: 09/06/18 09:31 Dose: 81 mg Clopidogrel Bisulfate (Plavix) 75 mg PO DAILY [facility] Last Admin: 09/06/18 09:31 Dose: 75 mg Folic Acid (Folic Acid) 1 mg PO DAILY [facility] Last Admin: 09/06/18 09:31 Dose: 1 mg Hydrocortisone (Cortizone 0.5% Cream) 1 applic TOP PRN [facility] Last Admin: 08/28/18 17:15 Dose: 1 applic Lactobacillus Acidophilus (Bacid Acidophilus) 1 cap PO BID [facility] Last Admin: 09/06/18 09:31 Dose: 1 cap Lidocaine (Lidoderm) 1 ea TD DAILY [facility] Last Admin: 09/06/18 09:31 Dose: 1 ea Lidocaine (Lidoderm) 1 ea TD DAILY [facility] Last Admin: 09/06/18 09:31 Dose: 1 ea Multivitamins (Hexavitamin) 1 tab PO DAILY [facility] Last Admin: 09/06/18 09:31 Dose: 1 tab Pantoprazole Sodium (Protonix Ec Tab) 40 mg PO DAILY [facility] Last Admin: 09/06/18 09:31 Dose: 40 mg Polyethylene Glycol (Miralax) 17 gm PO DAILY [facility] Last Admin: 09/06/18 09:30 Dose: 17 gm Rosuvastatin Calcium (Crestor) 20 mg PO HS [facility] Last Admin: 09/05/18 21:35 Dose: 20 mg Senna/Docusate Sodium (Senokot S 50 Mg-8.6 Mg) 1 tab PO BID [facility] Last Admin: 09/06/18 09:31 Dose: 1 tab Thiamine HCl (Vitamin B1 Tab) 100 mg PO DAILY [facility] Last Admin: 09/06/18 09:31 Dose: 100 mg Zinc Acetate/Diphenhydramine (Benadryl 1% Zinc Acetate -0.1%) 1 cre TOP TID PRN PRN Reason: Itching / Pruritus Last Admin: 08/28/18 17:15 Dose: 1 applic - Labs Labs: 09/06/18 06:57 09/06/18 06:57 PT 14.9 SECONDS (9.7-12.2) H 08/28/18 05:46 INR 1.4 08/28/18 05:46 APTT 26 SECONDS (21-34) 08/28/18 05:46 - Constitutional Appears: Non-toxic, No Acute Distress - Head Exam Head Exam: ATRAUMATIC, NORMAL INSPECTION - Eye Exam Eye Exam: EOMI, Normal appearance - ENT Exam ENT Exam: Mucous Membranes Moist - Respiratory Exam Respiratory Exam: Clear to Ausculation Bilateral, NORMAL BREATHING PATTERN. absent: Rhonchi, Wheezes - Cardiovascular Exam Cardiovascular Exam: REGULAR RHYTHM, +S1, +S2 - GI/Abdominal Exam GI & Abdominal Exam: Soft, Normal Bowel Sounds. absent: Tenderness - Extremities Exam Extremities Exam: absent: Pedal Edema, Tenderness - Neurological Exam Neurological Exam: Alert, Awake, CN II-XII Intact, Oriented x3 Neuro motor strength exam: Left Upper Extremity: 0, Right Upper Extremity: 5, Left Lower Extremity: 0, Right Lower Extremity: 5 Additional comments: Sensation intact throughout. Negative babinsky. - Psychiatric Exam Psychiatric exam: Normal Affect, Normal Mood - Skin Skin Exam: Dry, Intact Assessment and Plan - Assessment and Plan (Free Text) Assessment: Patient is a 52 yo male with a PMH of gastric ulcers who presented with L-side paralysis. Found to have ischemic stroke then hemorrhagic conversion- suspect embolic stroke 2/2 Afib 2/2 alcohol. MRI on 08/14 showed large R MCA infarct and basal ganglia and posterior frontoparietal hemorrhagic with 11 mm midline shift. Repeat CT continued to show worsening bleed; however most recent shows improvement of midline shift/mass effect. Patient continued to have tachycardia and fevers- discovered PE and LLE DVT. IVC filter placed 08/20. 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 Working with PT. Neurology rec starting ASA 81 and Plavix 75- signed off case. Patient downgraded to med/surg. Psych consult to evaluate for depression. Obtain labs MWF. 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 Slight dilatation of the left lateral ventricle suggesting mild early compressive effects at the level of the left foramen of Garza. No definitive evidence of acute intracranial hemorr jay. - Most recent CT head 08/29: Continued evolution hemorrhagic conversion changes of a relatively large right MCA territory branch infarct. Improved mass effect and midline shift - MRI brain 08/15: There is a relatively large subacute right MCA territory infarct with areas of hemorrhage in the basal ganglia and right posterior frontoparietal watershed zone as described. Persistent mass effect with compression of the right lateral ventricle and [id number] midline shift with septum pellucidum located approximately 11 mm to left of midline. Mild on dilatation left lateral ventricle due to mild compressive effects at the level of the left foramen of Garza. - Aspiration precautions - Seizure precautions - Hold therapeutic anticoagulation - ASA 81 mg PO daily - Start Plavix 75 mg PO daily - Crestor 20 mg PO QHS- restart 12/5 - Lipid panel: choles 271, LDL 184, HDL 59, TG 100 - EKGs: sinus tachycardia - No Afib seen on telemetry - Echo x2: EF 60-65%, no abnormalities, no vegetations - Echo with bubble study: no thrombus, no PFO - Neurosurgery consulted (Naomy)- no intervention - Neurology consulted (Shavonne/Dain)- hold anticoag but start ASA 81 and Plavix 75 - Cardiology consulted (Neal)- no need for DAMIEN, okay to start ASA 81 and Plavix 75 Left-sided paralysis and physical Disability 2/2 Stroke - PT/OT- recommend acute rehab - L knee immobilizer during PT/standing ONLY - PT yesterday - pt ambulated 5 ft x2 with RW and max assist - [facility] [employer] consulted- advanced bite size diet/thin liquids - SW/CM consulted- waiting to hear back from patient's - Patient's insurance does not cover rehab. Patient applying for [facility] [place], continuing inpatient PT/OT - Medical student will continue to work with patient, engaging passive ROM to prevent adhesive capsulitis. Pulmonary embolism and LLE Deep vein thrombosis - Leukocytosis resolved - D-dimer elevated (3912) - CTA chest 08/19: extensive pulmonary thromboembolism - LE Dopplers 08/19: extensive left lower extremity DVT - Hold anticoagulation due to hemorrhagic stroke - IVC filter 08/20 - Hypercoagulable work-up negative - Hem/onc consulted (Mariola) - Vascular surgery consulted (Shyla) Flat affect - Administer PHQ-9 - Psychiatry consulted (Sonya)- f/u recs Sinus tachycardia, fevers, improving- suspect 2/2 PE/DVT +/- central fevers 2/2 CVA - Most recent fever 100.6 on 08/22 8 AM - No changes to rate control meds as to not lower BP (already low normal) - Procal low (0.12) - EKG: sinus tachycardia (130s)- HR now 90-100s sinus - Blood Cx no growth - Repeat no growth - Echo x2: EF 60-65%, no abnormalities, no vegetations - Lopressor 50 mg PO BID - Lopressor 5 mg IV Q6H PRN Constipation, improving - Senakot PO BID - Miralax 17 g PO daily Low back and leg pain, stable - CPK wnl - Lidoderm patch - Avoid Tylenol due to LFTs, avoid NSAIDs due to hemorrhagic stroke Alcohol use disorder - MV daily - Thiamine 100 mg PO daily - Folate 1 g PO daily - Cessation counseling [place]iju[place] use disorder - UDS positive - Cessation counseling Transaminitis, resolved - Continue to monitor CMP - Avoid hepatotoxic drugs - Abd u/s: no significant or acute findings - Hepatitis panel negative - HIV pending (received 08/29) Rash, resolved- consistent with urticaria - Topical Benadryl PRN - Topical cortizone 0.5% PRN Pneumonia, resolved- HCAP vs aspiration - Aspiration precautions - CXR: Mild venous congestion. Patchy increased markings at the left lung base with small left pleural effusion. Small nodular density projects over the left lung apex. Cardiomegaly. - Repeat CXR 08/20: no active disease - Lactobacillus acidophilus BID Urinary tract infection, resolved - Urine Cx: Enterococcus faecalis - Repeat no growth - Finished 5 day course of Cipro 400 mg IV Q12H - Repeat UA, Cx negative Scrotal pain, resolved - Testicular u/s: b/l scrotal thickening Ppx: VTE: contraindicated, only SCD to RLE GI: PTX 40 mg PO daily Code status: full code Case was discussed with attending, Dr. Cierra Magallanes, PGY-1 <Mariel Norton V - Last Filed: 10/13/18 16:45> Objective - Vital Signs/Intake and Output Vital Signs (last 24 hours): Temp Pulse Resp BP Pulse Ox 98.0 F 79 20 124/82 98 10/13/18 09:26 10/13/18 09:26 10/13/18 09:26 10/13/18 09:26 10/13/18 09:26 - Labs Labs: 10/11/18 07:55 10/11/18 07:56 PT 14.9 SECONDS (9.7-12.2) H 08/28/18 05:46 INR 1.4 08/28/18 05:46 APTT 26 SECONDS (21-34) 08/28/18 05:46 Assessment and Plan (1) Arterial ischemic stroke, MCA (middle cerebral artery), right, acute Status: Acute (2) ETOH abuse Status: Chronic (3) Impaired glucose tolerance Status: Acute (4) Lipid disorder Status: Acute (5) Leukocytosis Status: Acute (6) DVT (deep venous thrombosis) Status: Acute (7) Pulmonary embolism Status: Acute (8) Prophylactic measure Status: Acute Attending/Attestation - Attestation I have personally seen and examined this patient.: Yes I have fully participated in the care of the patient.: Yes I have reviewed all pertinent clinical information, including history, physical exam and plan: Yes
--- NOTE | 2018-09-07 07:45 | CP.PCM.PN ---
<Mike Bullock - Last Filed: 09/07/18 09:10> Subjective - Date & Time of Evaluation Date of Evaluation: 09/07/18 Time of Evaluation: 06:00 - Subjective Subjective: PGY-1 Medicine progress note for Dr. Norton Patient seen and examined at bedside. No acute events overnight. Patient continues to have left sided weakness. Pt states he hasn't had a bowel movement in 5 days, and is complaining of diffuse abdominal pain. He is requesting to go to the bathroom. RN contacted for safe pt transfer to [facility]. He denies fever, chills, chest pain, sob, n/v/d, new numbness or tingling, headache, visual changes. Objective - Vital Signs/Intake and Output Vital Signs (last 24 hours): Temp Pulse Resp BP Pulse Ox 98.1 F 99 H 20 94/60 L 95 09/06/18 23:50 09/06/18 23:50 09/06/18 23:50 09/06/18 23:50 09/06/18 23:50 Intake and Output: 09/07/18 09/07/18 06:59 18:59 Output Total 400 Balance -400 - Medications Medications: Current Medications Artificial Tears (Artificial Tears) 0 ml OU BID [facility] Last Admin: 09/06/18 17:50 Dose: 1 drop Aspirin (Ecotrin) 81 mg PO DAILY [facility] Last Admin: 09/06/18 09:31 Dose: 81 mg Clopidogrel Bisulfate (Plavix) 75 mg PO DAILY [facility] Last Admin: 09/06/18 09:31 Dose: 75 mg Folic Acid (Folic Acid) 1 mg PO DAILY [facility] Last Admin: 09/06/18 09:31 Dose: 1 mg Hydrocortisone (Cortizone 0.5% Cream) 1 applic TOP PRN [facility] Last Admin: 08/28/18 17:15 Dose: 1 applic Lactobacillus Acidophilus (Bacid Acidophilus) 1 cap PO BID [facility] Last Admin: 09/06/18 17:51 Dose: 1 cap Lidocaine (Lidoderm) 1 ea TD DAILY [facility] Last Admin: 09/06/18 09:31 Dose: 1 ea Lidocaine (Lidoderm) 1 ea TD DAILY [facility] Last Admin: 09/06/18 09:31 Dose: 1 ea Multivitamins (Hexavitamin) 1 tab PO DAILY [facility] Last Admin: 09/06/18 09:31 Dose: 1 tab Pantoprazole Sodium (Protonix Ec Tab) 40 mg PO DAILY [facility] Last Admin: 09/06/18 09:31 Dose: 40 mg Polyethylene Glycol (Miralax) 17 gm PO DAILY [facility] Last Admin: 09/06/18 09:30 Dose: 17 gm Rosuvastatin Calcium (Crestor) 20 mg PO HS [facility] Last Admin: 09/06/18 21:45 Dose: 20 mg Senna/Docusate Sodium (Senokot S 50 Mg-8.6 Mg) 1 tab PO BID [facility] Last Admin: 09/06/18 17:50 Dose: 1 tab Thiamine HCl (Vitamin B1 Tab) 100 mg PO DAILY [facility] Last Admin: 09/06/18 09:31 Dose: 100 mg Zinc Acetate/Diphenhydramine (Benadryl 1% Zinc Acetate -0.1%) 1 cre TOP TID PRN PRN Reason: Itching / Pruritus Last Admin: 08/28/18 17:15 Dose: 1 applic - Labs Labs: 09/06/18 06:57 09/06/18 06:57 PT 14.9 SECONDS (9.7-12.2) H 08/28/18 05:46 INR 1.4 08/28/18 05:46 APTT 26 SECONDS (21-34) 08/28/18 05:46 - Constitutional Appears: Non-toxic, No Acute Distress - Head Exam Head Exam: ATRAUMATIC, NORMAL INSPECTION - Eye Exam Eye Exam: EOMI, Normal appearance - ENT Exam ENT Exam: Mucous Membranes Moist, Normal Exam - Neck Exam Neck Exam: Normal Inspection - Respiratory Exam Respiratory Exam: Clear to Ausculation Bilateral, NORMAL BREATHING PATTERN. abs ent: Rales, Rhonchi, Wheezes - Cardiovascular Exam Cardiovascular Exam: REGULAR RHYTHM, +S1, +S2 - GI/Abdominal Exam GI & Abdominal Exam: Soft, Tenderness (right sided abdominal tendernees), Normal Bowel Sounds. absent: Rigid, Rebound - Extremities Exam Extremities Exam: Normal Capillary Refill, Normal Inspection. absent: Calf Tenderness - Back Exam Back Exam: NORMAL INSPECTION - Neurological Exam Neurological Exam: Alert, Awake, CN II-XII Intact, Oriented x3 Neuro motor strength exam: Left Upper Extremity: 0, Right Upper Extremity: 5, Left Lower Extremity: 0, Right Lower Extremity: 5 - Psychiatric Exam Psychiatric exam: Normal Affect, Normal Mood - Skin Skin Exam: Dry, Normal Color, Warm Assessment and Plan - Assessment and Plan (Free Text) Assessment: Patient is a 52 yo male with a PMH of gastric ulcers who presented with L-side paralysis. Found to have ischemic stroke then hemorrhagic conversion- suspect embolic stroke 2/2 Afib 2/2 alcohol. MRI on 08/14 showed large R MCA infarct and basal ganglia and posterior frontoparietal hemorrhagic with 11 mm midline shift. Repeat CT continued to show worsening bleed; however most recent shows improvement of midline shift/mass effect. Patient continued to have tachycardia and fevers- discovered PE and LLE DVT. IVC filter placed 08/20. 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 Working with PT. Neurology rec starting ASA 81 and Plavix 75- signed off case. Patient downgraded to med/surg. Psych consult to evaluate for depression. Obtain labs MWF. 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 Slight dilatation of the left lateral ventricle suggesting mild early compressive effects at the level of the left foramen of Garza. No definitive evidence of acute intracranial hemorrhage. - Most recent CT head 08/29: Continued evolution hemorrhagic conversion changes of a relatively large right MCA territory branch infarct. Improved mass effect and midline shift - MRI brain 08/15: There is a relatively large subacute right MCA territory infarct with areas of hemorrhage in the basal ganglia and right posterior frontoparietal watershed zone as described. Persistent mass effect with compression of the right lateral ventricle and [id number] midline shift with septum pellucidum located approximately 11 mm to left of midline. Mild on dilatation left lateral ventricle due to mild compressive effects at the level of the left foramen of Garza. - Aspiration precautions - Seizure precautions - Hold therapeutic anticoagulation - ASA 81 mg PO daily - Start Plavix 75 mg PO daily - Crestor 20 mg PO QHS- restart 09/04 - Lipid panel: choles 271, LDL 184, HDL 59, TG 100 - EKGs: sinus tachycardia - No Afib seen on telemetry - Echo x2: EF 60-65%, no abnormalities, no vegetations - Echo with bubble study: no thrombus, no PFO - Neurosurgery consulted (Naomy)- no intervention - Neurology consulted (Shavonne/Dain)- hold anticoag but start ASA 81 and Plavix 75 - Cardiology consulted (Neal)- no need for DAMIEN, okay to start ASA 81 and Plavix 75 Left-sided paralysis and physical Disability 2/2 Stroke - PT/OT- recommend acute rehab - L knee immobilizer during PT/standing ONLY - PT yesterday - pt ambulated 5 ft x2 with RW and max assist - BACCARAT DEALER consulted- advanced bite size diet/thin liquids - SW/CM consulted- waiting to hear back from patient's - Patient's insurance does not cover rehab. Patient applying for [facility], continuing inpatient PT/OT - Medical student will continue to work with patient, engaging passive ROM to prevent adhesive capsulitis. Pulmonary embolism and LLE Deep vein thrombosis - Leukocytosis resolved - D-dimer elevated (3912) - CTA chest 08/19: extensive pulmonary thromboembolism - LE Dopplers 08/19: extensive left lower extremity DVT - Hold anticoagulation due to hemorrhagic stroke - IVC filter 08/20 - Hypercoagulable work-up negative - Hem/onc consulted (Mariola) - Vascular surgery consulted (Shyla) Flat affect - Administer PHQ-9 - Psychiatry consulted (Sonya)- f/u recs Sinus tachycardia, fevers, improving- suspect 2/2 PE/DVT +/- central fevers 2/2 CVA - Most recent fever 100.6 on 08/22 8 AM - No changes to rate control meds as to not lower BP (already low normal) - Procal low (0.12) - EKG: sinus tachycardia (130s)- HR now 90-100s sinus - Blood Cx no growth - Repeat no growth - Echo x2: EF 60-65%, no abnormalities, no vegetations - Lopressor 50 mg PO BID - Lopressor 5 mg IV Q6H PRN Constipation, improving - [place]ot PO BID - Miralax 17 g PO daily Low back and leg pain, stable - CPK wnl - Lidoderm patch - Avoid Tylenol due to LFTs, avoid NSAIDs due to hemorrhagic stroke Alcohol use disorder - MV daily - Thiamine 100 mg PO daily - Folate 1 g PO daily - Cessation counseling [place] use disorder - UDS positive - Cessation counseling Transaminitis, resolved - Continue to monitor CMP - Avoid hepatotoxic drugs - Abd u/s: no significant or acute findings - Hepatitis panel negative - HIV pending (received 08/29) Rash, resolved- consistent with urticaria - Topical Benadryl PRN - Topical cortizone 0.5% PRN Pneumonia, resolved- HCAP vs aspiration - Aspiration precautions - CXR: Mild venous congestion. Patchy increased markings at the left lung base with small left pleural effusion. Small nodular density projects over the left lung apex. Cardiomegaly. - Repeat CXR 08/20: no active disease - Lactobacillus acidophilus BID Urinary tract infection, resolved - Urine Cx: Enterococcus faecalis - Repeat no growth - Finished 5 day course of Cipro 400 mg IV Q12H - Repeat UA, Cx negative Scrotal pain, resolved - Testicular u/s: b/l scrotal thickening Ppx: VTE: contraindicated, only SCD to RLE GI: PTX 40 mg PO daily Code status: full code <Mariel Norton V - Last Filed: 09/08/18 09:42> Objective - Vital Signs/Intake and Output Vital Signs (last 24 hours): Temp Pulse Resp BP Pulse Ox 97.9 F 86 20 100/59 L 100 09/08/18 07:00 09/08/18 07:00 09/08/18 07:00 09/08/18 07:00 09/08/18 07:00 - Medications Medications: Current Medications Artificial Tears (Artificial Tears) 0 ml OU BID [facility] Last Admin: 09/07/18 17:08 Dose: 1 drop Aspirin (Ecotrin) 81 mg PO DAILY [facility] Last Admin: 09/07/18 12:06 Dose: 81 mg Clopidogrel Bisulfate (Plavix) 75 mg PO DAILY [facility] Last Admin: 09/07/18 12:06 Dose: 75 mg Folic Acid (Folic Acid) 1 mg PO DAILY [facility] Last Admin: 09/07/18 12:08 Dose: 1 mg Hydrocortisone (Cortizone 0.5% Cream) 1 applic TOP PRN [facility] Last Admin: 08/28/18 17:15 Dose: 1 applic Sodium Chloride (Sodium Chloride 0.9%) 1,000 mls @ 100 mls/hr IV .Q10H [facility] Stop: 09/08/18 10:46 Last Admin: 09/07/18 12:06 Dose: 100 mls/hr Lactobacillus Acidophilus (Bacid Acidophilus) 1 cap PO BID [facility] Last Admin: 09/07/18 17:08 Dose: 1 cap Lidocaine (Lidoderm) 1 ea TD DAILY [facility] Last Admin: 09/07/18 12:06 Dose: 1 ea Lidocaine (Lidoderm) 1 ea TD DAILY [facility] Last Admin: 09/07/18 12:06 Dose: 1 ea Metoprolol Tartrate (Lopressor) 25 mg PO BID [facility] Multivitamins (Hexavitamin) 1 tab PO DAILY [facility] Last Admin: 09/07/18 12:06 Dose: 1 tab Pantoprazole Sodium (Protonix Ec Tab) 40 mg PO DAILY [facility] Last Admin: 09/07/18 12:06 Dose: 40 mg Polyethylene Glycol (Miralax) 17 gm PO DAILY [facility] Last Admin: 09/07/18 12:07 Dose: Not Given Rosuvastatin Calcium (Crestor) 20 mg PO HS [facility] Last Admin: 09/07/18 21:03 Dose: 20 mg Senna/Docusate Sodium (Senokot S 50 Mg-8.6 Mg) 1 tab PO BID [facility] Last Admin: 09/07/18 17:15 Dose: 1 tab Thiamine HCl (Vitamin B1 Tab) 100 mg PO DAILY [facility] Last Admin: 09/07/18 12:06 Dose: 100 mg - Labs Labs: 09/07/18 11:04 09/07/18 11:04 PT 14.9 SECONDS (9.7-12.2) H 08/28/18 05:46 INR 1.4 08/28/18 05:46 APTT 26 SECONDS (21-34) 08/28/18 05:46 Assessment and Plan (1) Arterial ischemic stroke, MCA (middle cerebral artery), right, acute Status: Acute (2) ETOH abuse Status: Chronic (3) Impaired glucose tolerance Status: Acute (4) Lipid disorder Status: Acute (5) Leukocytosis Status: Acute (6) DVT (deep venous thrombosis) Status: Acute (7) Pulmonary embolism Status: Acute (8) Prophylactic measure Status: Acute Attending/Attestation - Attestation I have personally seen and examined this patient.: Yes I have fully participated in the care of the patient.: Yes I have reviewed all pertinent clinical information, including history, physical exam and plan: Yes Notes (Text): Interval September 07, 2018. Patient seen, examined, case discussed with medical record librarian. Responded to rapid response called by nurse for witnessed vasovagal syncope. Patient was on the Pierre noted to be very lightheaded placed back in bed placed in Trendelenburg patient received fluid bolus as well as maintenance fluids for 24 hours. Patient placed on telemetry for further observation. EKG noted for sinus tach labs reviewed post rapid. We will continue to monitor and continue to avoid fall risk precautions. Patient was advised he cannot be using a knee immobilizer in bed over his paralytic leg. Will worsen his DVT. Assessment/Plan 1) Pulmonary embolism and Lower deep vein thrombosis * Tachycardia, elevated D-dimer * CT Angio (08/19) showed for extensive pulmonary thromboembolism * Venous doppler: extensive left lower extremity DVT (affected from stroke) * Patient had hemorrhagic conversion from ischemic MCA stroke * we have ordered for protein c/protein s, antiphospholid, factor leiden, anticardiolipin, lupus workup * patient not eligible for TPA (due to hemorrhagic stroke); patient is 10 days out from stroke. * Vascular surgery consulted for IVC filter * completed 08/20/18 * Discussed with ICU and neurology, no anticoagulation * Neurology; IVC filter sufficient, repeat CT head in one week * No scd over the left lower extremity secondary to DVT * patient started on beta omero to control tachycardia; Lopressor 25mg PO BID * Echo repeat: left ventricle systolic function is normal. EF: 60-65%, no aortic regurgitation is present. no mitral valve regurgitation, no tricuspid valve regurgitation noted, no pulmonic valvular regurgitation. * Hypercoagulable workup * Anticardiolipiin negative * ntiphospholipid Prothrombin Gene: negative * unable to assess at3, protein C, protein S because had had dvt ppx in past (2) Hemorrhagic conversion of a right side MCA stroke Assessment & Plan: * Neurosurgery on board-->no intervention * neurology on board-->not candidate for tpa/nor thrombectomy per neuro notes * Per latest neuro note: recommend for aspirin and plavix if permitted by medicine and cardiology * Aspirin 81mg PO daily restarted 08/31/18 * Seizure precautions * aspiration precautions * hold statin secondary to LFTs * Anticardiolipiin negative * Antiphospholipid Prothrombin Gene: negative * unable to assess at3, protein C, protein S because had had dvt ppx in past * Repeat CT head 08/30/18 Imaging: * CT Head (08/11/18): large on MCA branch territory infarct involving right basal ganglia and right posterior frotnoparietal region extending to vertex with mass effect with overlying sulcal effacement, compression of the right lateral ventricle and shift of the septum pellucidum from right to left lateral ventricle suggesting mild early compressive effects at the level of left foramen of Garza. No definitive evidence of acute intracranial hemorrhage. * CT head and neck: no evidence of occlusion, dissection or significatn stenosis of the cervical caroitd or vertebral circulation. mild atheroscelroritc plauqe changes seen both cartoid siphons. no evidence of large aneurysm nor vascular malformation. * CT head (08/12/18); hemorrhage conversion of known large right MCA territoty infarction with local regional mass effect, diffuse cerenral edema, and 11mm midline from right to left. interval development of right SOTO territory infarction involving the paramedian frontal lobe. * CT Head (08/15/18): relatively large right MCA territory infarct again with questionable hemorrhage conversion changes. Mild mass effect with overlying sulcal effacement and compression of the right lateral ventricle lower shift of the spetum pellucidum from left to right by approximately 11mm. Questionable hemorrhagic conversion * Brain MRI (08/15/18): Relatively large subacute right MCA territory infarct with areas of hemorrhage in the basal ganglkia and right posterio frontoparie he watershed zone as described. persistent mass effect with compression of the right lateral ventricle and right to left midline shift with septum pellucidium approximately 11mm to left of midline. Mild on dilatation left lateral ventricle due to mild compressive effects at level of left foramen of monro. * CT head (08/20/18): interval evolution of large right MCA territory hemorrhagic infarction with mass effect and effacement of the right cerebral cortical sulci, right lateral ventricle and 10 midline shift from right to left. no significant interval change. * CT head (08/23/18): continued evolution hemorrhage conversion changes of a relatively large right MCA territory branch infarct. Persisteent mass effect with compression of overlying sulci and right lateral ventricle with mild right to left midline shift. No new hemorrhages. Persistent minimal dilatation left lateral ventricle. * CT head (08/29/18): previously noted hemorrhagic conversion changes of the right MCA territory branch infarct continue to involve in unremarkable fasion. no new hemorrhages. persistent but improved mass effect and less midline shift. No significant evidence of obstructive hydrocephalus Status: Acute (2) ETOH abuse Assessment & Plan: * Out of window for withdrawal * Thiamine 100mg PO daily * Folic acid 1 mg PO daily * MVI 1 tab PO daily Status: Chronic (3) Impaired glucose tolerance Assessment & Plan: * will need monitoring of his sugars * repeat a1c in one year to prevent overt diabetes Status: Acute (4) Lipid disorder Assessment & Plan: * elevated cholestrol: 271 * LDL: 184 * HDL: 59 * T * Resumed crestor 20mg PO HS given elevated LFTs (5) Leukocytosis (resolved) Prior urinary tract infection Assessment & Plan: * Blood culture (08/19/18): no growth after 5 days X2 * Urine culture (08/19/18): No growth * Procalcitonin: low * Ciprofloxacin 400mg IVQ12H (started 08/18/18) to complete 08/23/18 d/c cipro * Bacid 1 tab PO BID * Prior Blood culture (08/12/18): no growth after 5 days (6) Tachycardia Assessment & Plan: * patient has extensive PE noted on CT angio and Left lower DVT * repeat echo given right heart strain noted on Ct angio * Echo bubble (08/13/18): limited; negative study; no evidence inter-cavitary shunt. * Echo (08/14/18): normal LV systolic function, normal chamber size, trace to mild TR * c/w Lopressor 50mg PO BID (7) Transaminitis (resolved) Assessment & Plan: * d/c tylenol secondary to transaminitis * Abdominal US (08/19/18): no significant or acute findings to account for/related to clinical presentation * hepatitis panel: negative * resumed statin when LFTS had normalized (8) Constipation (resolved) Assessment & Plan: * Docusate sodium/senna 1 tab PO BID * Miralax daily PRN (9) Hypernatremia (resolved) Assessment & Plan: * normalized (10) Postoperative Fever (resolved) Assessment & Plan: * s/p IVC filter 08/20/18 (11) Hives (resolving) Assessment & Plan: (12) Prophylactic measure Assessment & Plan: * chemical anticoagulation contraindicated in light of hemorrhagic conversion of MCA stroke * Correct phone number of son: Yayo at [phone]-->son does not want to be involved in father's care * PT/OT eval * Aspiration precautions * Seizure precautions * s/p IVC filter 08/20/18 * s/p PICC 08/19/18 * SCDS only to right lower extremity; has DVT in L DVT * Protonix 40mg PO daily * Immobilizer to be used to physical therapy Disposition: patient will need aggressive PT/OT for left sided weakness and immobility.
[2018-09-07] MEDS ORDERED: Sodium Chloride 0.9% 1,000 ML IV ONE (10:35)
[2018-09-07] MEDS ORDERED: Sodium Chloride 0.9% 1,000 ML IV SCH (10:45)
--- NOTE | 2018-09-07 10:48 | PCM.RRT ---
<Kiara Bernstein - Last Filed: 09/07/18 10:45> RN CARDIOVASCULAR ICU Nurses Assessment - Situation Date: 09/07/18 Time RN CARDIOVASCULAR ICU was called: 10:22 RN CARDIOVASCULAR ICU Responder Arrival Time:: 10:25 RN CARDIOVASCULAR ICU Location:: 6T Med/Surg Room Number: 660A RN CARDIOVASCULAR ICU Called By: RN - IV IV Inserted during RN CARDIOVASCULAR ICU?: Yes - Respiratory RN CARDIOVASCULAR ICU Delivery Method: Room Air - Diagnostic Test Ordered EKG: Yes - Stat Labs Ordered RN CARDIOVASCULAR ICU Stat Labs Ordered: CBC, TROPONIN CPR started during RN CARDIOVASCULAR ICU?: No - Vital Signs Vital Signs: 96/67, 105 - Time RN CARDIOVASCULAR ICU Ended Time RN CARDIOVASCULAR ICU Ended: 10:47 - Recommendations Notifications: Attending Physician I.Reason for RN CARDIOVASCULAR ICU - A) Acute Change in Patient: Subjective: Rapid response was called overhead at 10:20AM to patient in room 660A for a syncope episode. Patient was using the commode and lost consciousness. Patient lost consciousness for less than a minute and regain consciousness without acute intervention. Patient denies injuring his headache or any parts of his body. Patient further denies shortness of breath, chest pain, nausea, or vomiting. Plan - Assessment of Findings&Treatment Plan Syncope -NS 1L IV bolus -EKG -JACKIE -Accucheck -CBC, CMP, Mg, Phos -Telemetry <Mariel Norton V - Last Filed: 09/08/18 09:40> RN CARDIOVASCULAR ICU Nurses Assessment - Vital Signs Vital Signs: Rapid Response Vital Sign Blood Pressure 95/61 Pulse Rate 98 Attending/Attestation - Attestation I have personally seen and examined this patient.: Yes I have fully participated in the care of the patient.: Yes I have reviewed all pertinent clinical information, including history, physical exam and plan: Yes Notes (Text): This is late computer entry. Responded to RN CARDIOVASCULAR ICU for syncope. likely vasovagal. Witnessed by her nurse when patient had attempted to use the luis. Patient denies chest pain, denies palpitations prior to event. Patient noted for sinus tachycardia; blood work, ekg, and jackie collected at time of rapid. Patient given fluid bolus, and fluid maintenance for 24 hours and monitor on telemetry. Patient cannot be anticoagulated because of hemorrhagic conversion of the Right MCA stroke.
[2018-09-07 11:09] LABS: BASO # 0.1 K/uL (0.0-0.2); BASO % 0.8 % (0.0-2.0); EOS # 0.3 K/uL (0.0-0.7); EOS % 3.7 % (0.0-4.0); HEMOGLOBIN 12.6 g/dL (12.0-18.0); LYMPH # 2.1 K/uL (1.0-4.3); LYMPH % 25.2 % (20.0-40.0); MEAN CELL VOLUME 88.7 fL (80.0-94.0); MEAN CORPUSCULAR HGB CONC 32.7 g/dL (33.0-37.0); MEAN PLATELET VOLUME 8.4 fL (7.2-11.7); MONO % 12.3 % (0.0-10.0); NEUT # 4.9 K/uL (1.8-7.0); RBC 4.36 Mil/uL (4.40-5.90); WHITE BLOOD COUNT 8.4 K/uL (4.8-10.8)
[2018-09-07] MEDS: Aritificial Tears (15ml) OU SCH ×2 (12:05→17:08)
[2018-09-07] MEDS: Pantoprazole 40 mg EC Tab PO SCH (12:06)
[2018-09-07] MEDS: Docusate-Senna 50 mg-8.6 mg Tab PO SCH ×2 (12:06→17:15)
[2018-09-07] MEDS: Multiple Vitamins Tab PO SCH (12:06)
[2018-09-07] MEDS: Lactobacillus Acidophilus 500 MU Cap PO SCH ×2 (12:06→17:08)
[2018-09-07] MEDS: Lidocaine 5% Patch TD SCH ×2 (12:06)
[2018-09-07] MEDS: POLYETHYLENE GLYCOL 3350 17 GM/Dose PACKET PO SCH (12:07)
[2018-09-07 12:50] LABS: ALB/GLOB RATIO 0.8 (1.0-2.1); ALBUMIN 3.4 g/dL (3.5-5.0); ALT/SGPT 54 U/L (21-72); AST/SGOT 42 U/L (17-59); BLOOD UREA NITROGEN 10 mg/dL (9-20); CALCIUM 9.1 mg/dl (8.6-10.4); GFR NON-AFRICAN AMERICAN > 60
[2018-09-07 13:17] LABS: CK-MB 0.56 ng/mL (0.0-3.38)
--- NOTE | 2018-09-08 02:04 | CP.PCM.PN ---
<AraMike - Last Filed: 09/08/18 02:00> Subjective - Date & Time of Evaluation Date of Evaluation: 09/08/18 Time of Evaluation: 02:00 - Subjective Subjective: PGY-1 Medicine progress note Patient seen and examined at bedside. Patient continues to have left sided weakness. Reports resolution of abdominal pain with bowel movement yesterday. He has no complaints at this time. He denies fever, chills, chest pain, sob, n/v/d, abdominal pain, hematochezia, melena, new numbness or tingling, headache, visual changes. Pt denies any syncope since TAPE TRANSFERRER called for syncope while using the commode the morning of 09/07. Objective - Vital Signs/Intake and Output Vital Signs (last 24 hours): Temp Pulse Resp BP Pulse Ox 98.2 F 99 H 20 116/75 98 09/07/18 18:00 09/07/18 23:30 09/07/18 18:00 09/07/18 18:00 09/07/18 18:00 - Medications Medications: Current Medications Artificial Tears (Artificial Tears) 0 ml OU BID [facility] Last Admin: 09/07/18 17:08 Dose: 1 drop Aspirin (Ecotrin) 81 mg PO DAILY [facility] Last Admin: 09/07/18 12:06 Dose: 81 mg Clopidogrel Bisulfate (Plavix) 75 mg PO DAILY [facility] Last Admin: 09/07/18 12:06 Dose: 75 mg Folic Acid (Folic Acid) 1 mg PO DAILY [facility] Last Admin: 09/07/18 12:08 Dose: 1 mg Hydrocortisone (Cortizone 0.5% Cream) 1 applic TOP PRN [facility] Last Admin: 08/28/18 17:15 Dose: 1 applic Sodium Chloride (Sodium Chloride 0.9%) 1,000 mls @ 100 mls/hr IV .Q10H [facility] Stop: 09/08/18 10:46 Last Admin: 09/07/18 12:06 Dose: 100 mls/hr Lactobacillus Acidophilus (Bacid Acidophilus) 1 cap PO BID [facility] Last Admin: 09/07/18 17:08 Dose: 1 cap Lidocaine (Lidoderm) 1 ea TD DAILY [facility] Last Admin: 09/07/18 12:06 Dose: 1 ea Lidocaine (Lidoderm) 1 ea TD DAILY [facility] Last Admin: 12/08/18 12:06 Dose: 1 ea Multivitamins (Hexavitamin) 1 tab PO DAILY [facility] Last Admin: 09/07/18 12:06 Dose: 1 tab Pantoprazole Sodium (Protonix Ec Tab) 40 mg PO DAILY [facility] Last Admin: 09/07/18 12:06 Dose: 40 mg Polyethylene Glycol (Miralax) 17 gm PO DAILY [facility] Last Admin: 09/07/18 12:07 Dose: Not Given Rosuvastatin Calcium (Crestor) 20 mg PO HS [facility] Last Admin: 09/07/18 21:03 Dose: 20 mg Senna/Docusate Sodium (Senokot S 50 Mg-8.6 Mg) 1 tab PO BID [facility] Last Admin: 09/07/18 17:15 Dose: 1 tab Thiamine HCl (Vitamin B1 Tab) 100 mg PO DAILY [facility] Last Admin: 09/07/18 12:06 Dose: 100 mg - Labs Labs: 09/07/18 11:04 09/07/18 11:04 PT 14.9 SECONDS (9.7-12.2) H 08/28/18 05:46 INR 1.4 08/28/18 05:46 APTT 26 SECONDS (21-34) 08/28/18 05:46 - Additional Findings Additional findings: - Constitutional Appears: Non-toxic, No Acute Distress - Head Exam Head Exam: ATRAUMATIC, NORMAL INSPECTION - Eye Exam Eye Exam: EOMI, Normal appearance, PERRL - ENT Exam ENT Exam: Mucous Membranes Moist, Normal Exam - Neck Exam Neck Exam: Normal Inspection - Respiratory Exam Respiratory Exam: Clear to Ausculation Bilateral, NORMAL BREATHING PATTERN. absent: Rales, Rhonchi, Wheezes - Cardiovascular Exam Cardiovascular Exam: REGULAR RHYTHM, +S1, +S2 - GI/Abdominal Exam GI & Abdominal Exam: Soft, Nontender, Normal Bowel Sounds. absent: Rigid, Rebound - Extremities Exam Extremities Exam: Normal Capillary Refill, Normal Inspection. (+) pitting edema to the left lower extremity absent: Calf Tenderness - Back Exam Back Exam: NORMAL INSPECTION - Neurological Exam Neurological Exam: Alert, Awake, CN II-XII Intact, Oriented x3 Neuro motor strength exam: Left Upper Extremity: 0, Right Upper Extremity: 5, Left Lower Extremity: 0, Right Lower Extremity: 5 - Psychiatric Exam Psychiatric exam: Normal Affect, Normal Mood - Skin Skin Exam: Dry, Normal Color, Warm Assessment and Plan - Assessment and Plan (Free Text) Assessment: Patient is a 52 yo male with a PMH of gastric ulcers who presented with L-side paralysis. Found to have ischemic stroke then hemorrhagic conversion- suspect embolic stroke /2 Afib 2/2 alcohol. MRI on 08/14 showed large R MCA infarct and basal ganglia and posterior frontoparietal hemorrhagic with 11 mm midline shift. Repeat CT continued to show worsening bleed; however most recent shows improvement of midline shift/mass effect. Patient continued to have tachycardia and fevers- discovered PE and LLE DVT. IVC filter placed 08/20. 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 Working with PT. Neurology rec starting ASA 81 and Plavix 75- signed off case. Patient downgraded to med/surg. Psych consult to evaluate for depression. Obtain labs MWF. 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 Slight dilatation of the left lateral ventricle suggesting mild early compressive effects at the level of the left foramen of Garza. No definitive evidence of acute intracranial hemorrhage. - Most recent CT head 08/29: Continued evolution hemorrhagic conversion changes of a relatively large right MCA territory branch infarct. Improved mass effect and midline shift - MRI brain 08/15: There is a relatively large subacute right MCA territory infarct with areas of hemorrhage in the basal ganglia and right posterior fronto parietal watershed zone as described. Persistent mass effect with compression of the right lateral ventricle and [id number] midline shift with septum pellucidum located approximately 11 mm to left of midline. Mild on dilatation left lateral ventricle due to mild compressive effects at the level of the left foramen of Garza. - Aspiration precautions - Seizure precautions - Hold therapeutic anticoagulation - ASA 81 mg PO daily - Start Plavix 75 mg PO daily - Crestor 20 mg PO QHS- restart 09/04 - Lipid panel: choles 271, LDL 184, HDL 59, TG 100 - EKGs: sinus tachycardia - No Afib seen on telemetry - Echo x2: EF 60-65%, no abnormalities, no vegetations - Echo with bubble study: no thrombus, no PFO - Neurosurgery consulted (Naomy)- no intervention - Neurology consulted (Shavonne/Dain)- hold anticoag but start ASA 81 and Plavix 75 - Cardiology consulted (Neal)- no need for DAMIEN, okay to start ASA 81 and Plavix 75 Left-sided paralysis and physical Disability 2/2 Stroke - PT/OT- recommend acute rehab - L knee immobilizer during PT/standing ONLY - PT yesterday - pt ambulated 5 ft x2 with RW and max assist - EVENT DESIGNER consulted- advanced bite size diet/thin liquids - SW/CM consulted- waiting to hear back from patient's - Patient's insurance does not cover rehab. Patient applying for [facility], continuing inpatient PT/OT - Medical student will continue to work with patient, engaging passive ROM to prevent adhesive capsulitis. Pulmonary embolism and LLE Deep vein thrombosis - Leukocytosis resolved - D-dimer elevated (3912) - CTA chest 08/19: extensive pulmonary thromboembolism - LE Dopplers 08/19: extensive left lower extremity DVT - Hold anticoagulation due to hemorrhagic stroke - IVC filter 08/20 - Hypercoagulable work-up negative - Hem/onc consulted (Mariola) - Vascular surgery consulted (Shyla) Flat affect - Administer PHQ-9 - Psychiatry consulted (Sonya)- f/u recs Sinus tachycardia, fevers, improving- suspect 2/2 PE/DVT +/- central fevers 2/2 CVA - Most recent fever 100.6 on 08/22 8 AM - No changes to rate control meds as to not lower BP (already low normal) - Procal low (0.12) - EKG: sinus tachycardia (130s)- HR now 90-100s sinus - Blood Cx no growth - Repeat no growth - Echo x2: EF 60-65%, no abnormalities, no vegetations - Lopressor 50 mg PO BID - Lopressor 5 mg IV Q6H PRN Constipation, improving - [place] PO BID - Miralax 17 g PO daily Low back and leg pain, stable - CPK wnl - Lidoderm patch - Avoid Tylenol due to LFTs, avoid NSAIDs due to hemorrhagic stroke Alcohol use disorder - MV daily - Thiamine 100 mg PO daily - Folate 1 g PO daily - Cessation counseling [place] use disorder - UDS positive - Cessation counseling Transaminitis, resolved - Continue to monitor CMP - Avoid hepatotoxic drugs - Abd u/s: no significant or acute findings - Hepatitis panel negative - HIV pending (received 08/29) Rash, resolved- consistent with urticaria - Topical Benadryl PRN - Topical cortizone 0.5% PRN Pneumonia, resolved- HCAP vs aspiration - Aspiration precautions - CXR: Mild venous congestion. Patchy increased markings at the left lung base with small left pleural effusion. Small nodular density projects over the left lung apex. Cardiomegaly. - Repeat CXR 08/20: no active disease - Lactobacillus acidophilus BID Urinary tract infection, resolved - Urine Cx: Enterococcus faecalis - Repeat no growth - Finished 5 day course of Cipro 400 mg IV Q12H - Repeat UA, Cx negative Scrotal pain, resolved - Testicular u/s: b/l scrotal thickening Ppx: VTE: contraindicated, only SCD to RLE GI: PTX 40 mg PO daily Code status: full code <Mariel Norton V - Last Filed: 09/08/18 09:38> Objective - Vital Signs/Intake and Output Vital Signs (last 24 hours): Temp Pulse Resp BP Pulse Ox 97.9 F 86 20 100/59 L 100 09/08/18 07:00 09/08/18 07:00 09/08/18 07:00 09/08/18 07:00 09/08/18 07:00 - Medications Medications: Current Medications Artificial Tears (Artificial Tears) 0 ml OU BID [facility] Last Admin: 09/07/18 17:08 Dose: 1 drop Aspirin (Ecotrin) 81 mg PO DAILY [facility] Last Admin: 09/07/18 12:06 Dose: 81 mg Clopidogrel Bisulfate (Plavix) 75 mg PO DAILY [facility] Last Admin: 09/07/18 12:06 Dose: 75 mg Folic Acid (Folic Acid) 1 mg PO DAILY [facility] Last Admin: 09/07/18 12:08 Dose: 1 mg Hydrocortisone (Cortizone 0.5% Cream) 1 applic TOP PRN [facility] Last Admin: 08/28/18 17:15 Dose: 1 applic Sodium Chloride (Sodium Chloride 0.9%) 1,000 mls @ 100 mls/hr IV .Q10H [facility] Stop: 09/08/18 10:46 Last Admin: 09/07/18 12:06 Dose: 100 mls/hr Lactobacillus Acidophilus (Bacid Acidophilus) 1 cap PO BID [facility] Last Admin: 09/07/18 17:08 Dose: 1 cap Lidocaine (Lidoderm) 1 ea TD DAILY [facility] Last Admin: 09/07/18 12:06 Dose: 1 ea Lidocaine (Lidoderm) 1 ea TD DAILY [facility] Last Admin: 09/07/18 12:06 Dose: 1 ea Multivitamins (Hexavitamin) 1 tab PO DAILY [facility] Last Admin: 09/07/18 12:06 Dose: 1 tab Pantoprazole Sodium (Protonix Ec Tab) 40 mg PO DAILY [facility] Last Admin: 09/07/18 12:06 Dose: 40 mg Polyethylene Glycol (Miralax) 17 gm PO DAILY [facility] Last Admin: 09/07/18 12:07 Dose: Not Given Rosuvastatin Calcium (Crestor) 20 mg PO HS [facility] Last Admin: 09/07/18 21:03 Dose: 20 mg Senna/Docusate Sodium (Senokot S 50 Mg-8.6 Mg) 1 tab PO BID [facility] Last Admin: 09/07/18 17:15 Dose: 1 tab Thiamine HCl (Vitamin B1 Tab) 100 mg PO DAILY [facility] Last Admin: 09/07/18 12:06 Dose: 100 mg - Labs Labs: 09/07/18 11:04 09/07/18 11:04 PT 14.9 SECONDS (9.7-12.2) H 08/28/18 05:46 INR 1.4 08/28/18 05:46 APTT 26 SECONDS (21-34) 08/28/18 05:46 Assessment and Plan (1) Arterial ischemic stroke, MCA (middle cerebral artery), right, acute Status: Acute (2) ETOH abuse Status: Chronic (3) Impaired glucose tolerance Status: Acute (4) Lipid disorder Status: Acute (5) Leukocytosis Status: Acute (6) DVT (deep venous thrombosis) Status: Acute (7) Pulmonary embolism Status: Acute (8) Prophylactic measure Status: Acute Attending/Attestation - Attestation I have personally seen and examined this patient.: Yes I have fully participated in the care of the patient.: Yes I have reviewed all pertinent clinical information, including history, physical exam and plan: Yes Notes (Text): Patient seen, examined, case discussed with medical staff credentialing coordinator. Patient denies acute complaints. Patient denies any lightheadedness. I did discuss with patient that if he is using the bedside community he usually does need assistance given that he is a rather tall gentleman heavier set. Patient continues to need aggressive PT and OT for his left upper and lower extremity weakness secondary to right MCA ischemic stroke which converted to hemorrhagic. We will discontinue telemetry. Patient will continue to need aggressive PT. We are awaiting further assistance from social and case management. Patient's son does not want to be involved in his care further. Patient's who is in the DR wants to be involved. We will pursue blood work tomorrow. Patient is currently on aspirin, Plavix, and statin since LFTs had resolved. Assessment/Plan 1) Pulmonary embolism and Lower deep vein thrombosis * Tachycardia, elevated D-dimer * CT Angio (08/19) showed for extensive pulmonary thromboembolism * Venous doppler: extensive left lower extremity DVT (affected from stroke) * Patient had hemorrhagic conversion from ischemic MCA stroke * we have ordered for protein c/protein s, antiphospholid, factor leiden, anticardiolipin, lupus workup * patient not eligible for TPA (due to hemorrhagic stroke); patient is 10 days out from stroke. * Vascular surgery consulted for IVC filter * completed 08/20/18 * Discussed with ICU and neurology, no anticoagulation * Neurology; IVC filter sufficient, repeat CT head in one week * No scd over the left lower extremity secondary to DVT * patient started on beta omero to control tachycardia; Lopressor 25mg PO BID * Echo repeat: left ventricle systolic function is normal. EF: 60-65%, no aortic regurgitation is present. no mitral valve regurgitation, no tricus pid valve regurgitation noted, no pulmonic valvular regurgitation. * Hypercoagulable workup * Anticardiolipiin negative * ntiphospholipid Prothrombin Gene: negative * unable to assess at3, protein C, protein S because had had dvt ppx in past (2) Hemorrhagic conversion of a right side MCA stroke Assessment & Plan: * Neurosurgery on board-->no intervention * neurology on board-->not candidate for tpa/nor thrombectomy per neuro notes * Per latest neuro note: recommend for aspirin and plavix if permitted by medicine and cardiology * Aspirin 81mg PO daily restarted 08/31/18 * Seizure precautions * aspiration precautions * hold statin secondary to LFTs * Anticardiolipiin negative * Antiphospholipid Prothrombin Gene: negative * unable to assess at3, protein C, protein S because had had dvt ppx in past * Repeat CT head 08/30/18 Imaging: * CT Head (08/11/18): large on MCA branch territory infarct involving right basal ganglia and right posterior frotnoparietal region extending to vertex with mass effect with overlying sulcal effacement, compression of the right l ateral ventricle and shift of the septum pellucidum from right to left lateral ventricle suggesting mild early compressive effects at the level of left foramen of Garza. No definitive evidence of acute intracranial hemorrhage. * CT head and neck: no evidence of occlusion, dissection or significatn stenosis of the cervical caroitd or vertebral circulation. mild atheroscelroritc plauqe changes seen both cartoid siphons. no evidence of large aneurysm nor vascular malformation. * CT head (08/12/18); hemorrhage conversion of known large right MCA territoty infarction with local regional mass effect, diffuse cerenral edema, and 11mm midline from right to left. interval development of right SOTO territory infarction involving the paramedian frontal lobe. * CT Head (08/15/18): relatively large right MCA territory infarct again with questionable hemorrhage conversion changes. Mild mass effect with overlying sulcal effacement and compression of the right lateral ventricle lower shift of the spetum pellucidum from left to right by approximately 11mm. Questionable hemorrhagic conversion * Brain MRI (08/15/18): Relatively large subacute right MCA territory infarct with areas of hemorrhage in the basal ganglkia and right posterio frontoparietal watershed zone as described. persistent mass effect with compression of the right lateral ventricle and right to left midline shift with septum pellucidium approximately 11mm to left of midline. Mild on dilatation left lateral ventricle due to mild compressive effects at level of left foramen of monro. * CT head (08/20/18): interval evolution of large right MCA territory hemorrhagic infarction with mass effect and effacement of the right cerebral cortical sulci, right lateral ventricle and 10 midline shift from right to left. no significant interval change. * CT head (08/23/18): continued evolution hemorrhage conversion changes of a relatively large right MCA territory branch infarct. Persisteent mass effect with compression of overlying sulci and right lateral ventricle with mild right to left midline shift. No new hemorrhages. Persistent minimal dilatation left lateral ventricle. * CT head (08/29/18): previously noted hemorrhagic conversion changes of the right MCA territory branch infarct continue to involve in unremarkable fasion. no new hemorrhages. persistent but improved mass effect and less midline shift. No significant evidence of obstructive hydrocephalus Status: Acute (2) ETOH abuse Assessment & Plan: * Out of window for withdrawal * Thiamine 100mg PO daily * Folic acid 1 mg PO daily * MVI 1 tab PO daily Status: Chronic (3) Impaired glucose tolerance Assessment & Plan: * will need monitoring of his sugars * repeat a1c in one year to prevent overt diabetes Status: Acute (4) Lipid disorder Assessment & Plan: * elevated cholestrol: 271 * LDL: 184 * HDL: 59 * T * Resumed crestor 20mg PO HS given elevated LFTs (5) Leukocytosis (resolved) Prior urinary tract infection Assessment & Plan: * Blood culture (08/19/18): no growth after 5 days X2 * Urine culture (08/19/18): No growth * Procalcitonin: low * Ciprofloxacin 400mg IVQ12H (started 08/18/18) to complete 08/23/18 d/c cipro * Bacid 1 tab PO BID * Prior Blood culture (08/12/18): no growth after 5 days (6) Tachycardia Assessment & Plan: * patient has extensive PE noted on CT angio and Left lower DVT * repeat echo given right heart strain noted on Ct angio * Echo bubble (08/13/18): limited; negative study; no evidence inter-cavitary shunt. * Echo (08/14/18): normal LV systolic function, normal chamber size, trace to mild TR * c/w Lopressor 50mg PO BID (7) Transaminitis (resolved) Assessment & Plan: * d/c tylenol secondary to transaminitis * Abdominal US (08/19/18): no significant or acute findings to account for/related to clinical presentation * hepatitis panel: negative * resumed statin when LFTS had normalized (8) Constipation (resolved) Assessment & Plan: * Docusate sodium/senna 1 tab PO BID * Miralax daily PRN (9) Hypernatremia (resolved) Assessment & Plan: * normalized (10) Postoperative Fever (resolved) Assessment & Plan: * s/p IVC filter 08/20/18 (11) Hives (resolving) Assessment & Plan: (12) Prophylactic measure Assessment & Plan: * chemical anticoagulation contraindicated in light of hemorrhagic conversion of MCA stroke * Correct phone number of son: Yayo at [phone]-->son does not want to be involved in father's care * PT/OT eval * Aspiration precautions * Seizure precautions * s/p IVC filter 08/20/18 * s/p PICC 08/19/18 * SCDS only to right lower extremity; has DVT in L DVT * Protonix 40mg PO daily * Immobilizer to be used to physical therapy Disposition: patient will need aggressive PT/OT for left sided weakness and immobility.
[2018-09-08] MEDS: Lidocaine 5% Patch TD SCH ×2 (10:00→10:02)
[2018-09-08] MEDS: Docusate-Senna 50 mg-8.6 mg Tab PO SCH ×2 (10:00→17:55)
[2018-09-08] MEDS: Aritificial Tears (15ml) OU SCH ×2 (10:01→17:55)
[2018-09-08] MEDS: Lactobacillus Acidophilus 500 MU Cap PO SCH ×2 (10:01→17:55)
[2018-09-08] MEDS: Multiple Vitamins Tab PO SCH (10:01)
[2018-09-08] MEDS: Pantoprazole 40 mg EC Tab PO SCH (10:01)
[2018-09-08] MEDS: POLYETHYLENE GLYCOL 3350 17 GM/Dose PACKET PO SCH (10:03)
[2018-09-09 07:31] LABS: BASO % 0.5 % (0.0-2.0); EOS # 0.5 K/uL (0.0-0.7); EOS % 6.9 % (0.0-4.0); HEMOGLOBIN 11.1 g/dL (12.0-18.0); LYMPH # 1.8 K/uL (1.0-4.3); LYMPH % 26.9 % (20.0-40.0); MEAN CELL VOLUME 87.6 fL (80.0-94.0); MEAN CORPUSCULAR HEMOGLOBIN 29.2 pg (27.0-31.0); MEAN CORPUSCULAR HGB CONC 33.3 g/dL (33.0-37.0); MEAN PLATELET VOLUME 8.4 fL (7.2-11.7); MONO # 0.8 K/uL (0.0-0.8); MONO % 12.5 % (0.0-10.0); NEUT # 3.5 K/uL (1.8-7.0); NEUT % 53.2 % (50.0-75.0); NRBC % 0.1 % (0.0-2.0); RBC 3.82 Mil/uL (4.40-5.90); RED CELL DISTRIBUTION WIDTH 13.1 % (11.5-14.5); WHITE BLOOD COUNT 6.6 K/uL (4.8-10.8)
--- NOTE | 2018-09-09 07:32 | CP.PCM.PN ---
<Olga Lidia Garland - Last Filed: 09/09/18 14:51> Subjective - Date & Time of Evaluation Date of Evaluation: 09/09/18 Time of Evaluation: 07:28 - Subjective Subjective: PGY-1 Olga Lidia Garland D.O. Medicine progress note for Dr. Castro's service: Patient was seen and examined this morning. No clinical change. Patient is working with PT for L-sided paralysis. CARPENTER REPAIRER called over the weekend for syncopal episode. Patient states he feels fine- no weakness, chest pain, SOB, palpitations, CANO, or dizziness. No subsequent syncope observed. Objective - Vital Signs/Intake and Output Vital Signs (last 24 hours): Temp Pulse Resp BP Pulse Ox 98.3 F 89 20 101/68 96 09/08/18 23:55 09/08/18 23:55 09/08/18 23:55 09/08/18 23:55 09/08/18 23:55 - Medications Medications: Current Medications Artificial Tears (Artificial Tears) 0 ml OU BID [facility] Last Admin: 09/08/18 17:55 Dose: 1 drop Aspirin (Ecotrin) 81 mg PO DAILY [facility] Last Admin: 09/08/18 10:00 Dose: 81 mg Clopidogrel Bisulfate (Plavix) 75 mg PO DAILY [facility] Last Admin: 09/08/18 10:01 Dose: 75 mg Folic Acid (Folic Acid) 1 mg PO DAILY [facility] Last Admin: 09/08/18 10:00 Dose: 1 mg Hydrocortisone (Cortizone 0.5% Cream) 1 applic TOP PRN [facility] Last Admin: 08/28/18 17:15 Dose: 1 applic Lactobacillus Acidophilus (Bacid Acidophilus) 1 cap PO BID [facility] Last Admin: 09/08/18 17:55 Dose: 1 cap Lidocaine (Lidoderm) 1 ea TD DAILY [facility] Last Admin: 09/08/18 10:00 Dose: 1 ea Lidocaine (Lidoderm) 1 ea TD DAILY [facility] Last Admin: 09/08/18 10:02 Dose: Not Given Metoprolol Tartrate (Lopressor) 25 mg PO BID [facility] Last Admin: 09/08/18 17:13 Dose: Not Given Multivitamins (Hexavitamin) 1 tab PO DAILY [facility] Last Admin: 09/08/18 10:01 Dose: 1 tab Pantoprazole Sodium (Protonix Ec Tab) 40 mg PO DAILY [facility] Last Admin: 09/08/18 10:01 Dose: 40 mg Polyethylene Glycol (Miralax) 17 gm PO DAILY [facility] Last Admin: 09/08/18 10:03 Dose: 17 gm Rosuvastatin Calcium (Crestor) 20 mg PO HS [facility] Last Admin: 09/08/18 22:15 Dose: 20 mg Senna/Docusate Sodium (Senokot S 50 Mg-8.6 Mg) 1 tab PO BID [facility] Last Admin: 09/08/18 17:55 Dose: 1 tab Thiamine HCl (Vitamin B1 Tab) 100 mg PO DAILY [facility] Last Admin: 09/08/18 10:01 Dose: 100 mg - Labs Labs: 09/07/18 11:04 09/07/18 11:04 PT 14.9 SECONDS (9.7-12.2) H 08/28/18 05:46 INR 1.4 08/28/18 05:46 APTT 26 SECONDS (21-34) 08/28/18 05:46 - Constitutional Appears: No Acute Distress - Head Exam Head Exam: ATRAUMATIC, NORMAL INSPECTION - Eye Exam Eye Exam: EOMI, Normal appearance, PERRL - ENT Exam ENT Exam: Mucous Membranes Moist - Neck Exam Neck Exam: Normal Inspection - Respiratory Exam Respiratory Exam: Clear to Ausculation Bilateral, NORMAL BREATHING PATTERN - Cardiovascular Exam Cardiovascular Exam: REGULAR RHYTHM, +S1, +S2 - GI/Abdominal Exam GI & Abdominal Exam: Soft. absent: Tenderness - Rectal Exam Rectal Exam: Deferred - Extremities Exam Extremities Exam: Normal Inspection - Neurological Exam Neurological Exam: Alert, Awake, CN II-XII Intact, Oriented x3 Neuro motor strength exam: Left Upper Extremity: 0, Right Upper Extremity: 5, Left Lower Extremity: 0, Right Lower Extremity: 5 - Psychiatric Exam Psychiatric exam: Flat Affect - Skin Skin Exam: Dry, Intact, Normal Color, Warm. absent: Rash Assessment and Plan - Assessment and Plan (Free Text) Assessment: Patient is a 52 yo male with a PMH of gastric ulcers who presented with L-side paralysis. Found to have ischemic stroke then hemorrhagic conversion- suspect embolic stroke 2/2 Afib 2/2 alcohol. MRI on 08/14 showed large R MCA infarct and basal ganglia and posterior frontoparietal hemorrhagic with 11 mm midline shift. Repeat CT continued to show worsening bleed; however most recent shows im provement of midline shift/mass effect. Patient continued to have tachycardia and fevers- discovered PE and LLE DVT. IVC filter placed 08/20. 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 Working with PT. Neurology rec starting ASA 81 and Plavix 75- signed off case. Patient downgraded to med/surg. Psych consult to evaluate for depression. Obtain labs MWF. Pending contact with patient's in for potential placement. Patient's son in [place] does not want to be involved, as per CM. Plan: Hemorrhagic conversion of R MCA ischemic CVA- suspect embolic /2 Afib 2/2 alcohol use - LUE and LLE paralysis- no improvement - L shoulder XR: no subluxation/dislocation, no fracture - L knee immobilizer during PT/standing only - Repeated CT head continue to show evolution/increase of bleed - Initial CT head 08/10: There is a large on MCA branch territory infarct involving the right basal ganglia and right posterior frontoparietal region extending to the vertex with mass effect with overlying sulcal effacement, compression of the right lateral ventricle and shift of the septum pellucidum from right to left by approximately 4.9 mm. Slight dilatation of the left lateral ventricle suggesting mild early compressive effects at the level of the left foramen of Garza. No definitive evidence of acute intracranial hemorrhage. - Most recent CT head 08/29: Continued evolution hemorrhagic conversion changes of a relatively large right MCA territory branch infarct. Improved mass effect and midline shift - MRI brain 08/15: There is a relatively large subacute right MCA territory infarct with areas of hemorrhage in the basal ganglia and right posterior frontoparietal watershed zone as described. Persistent mass effect with compression of the right lateral ventricle and [id number] midline shift with septum pellucidum located approximately 11 mm to left of midline. Mild on dilatation left lateral ventricle due to mild compressive effects at the level of the left foramen of Garza. - Aspiration precautions - Seizure precautions - Lipid panel: choles 271, LDL 184, HDL 59, TG 100 - EKGs: sinus tachycardia - No Afib seen on telemetry - Echo x2: EF 60-65%, no abnormalities, no vegetations - Echo with bubble study: no thrombus, no PFO - Hold therapeutic anticoagulation - ASA 81 mg PO daily - Plavix 75 mg PO daily - Crestor 20 mg PO QHS - Neurosurgery consulted (Naomy)- no intervention - Neurology consulted (Shavonne/Dain)- hold anticoag but start ASA 81 and Plavix 75 - Cardiology consulted (Neal)- no need for DAMIEN, okay to start ASA 81 and Plavix 75 Left-sided paralysis 2/2 Stroke - PT/OT- recommend acute rehab - L knee immobilizer during PT/standing ONLY - MANIFOLD BUILDER consulted- advanced bite size diet/thin liquids - SW/CM consulted- waiting to hear back from patient's in [place] - Patient's insurance does not cover rehab. Patient applying for [facility], continuing inpatient PT/OT - PT taught exercises to patient to continue engaging passive ROM to prevent adhesive capsulitis Pulmonary embolism and LLE Deep vein thrombosis - Leukocytosis resolved - D-dimer elevated (3912) - CTA chest 08/19: extensive pulmonary thromboembolism - LE Dopplers 08/19: extensive left lower extremity DVT - No SCD on LLE - Hold anticoagulation due to hemorrhagic stroke - IVC filter 08/20 - Hypercoagulable work-up negative - Hem/onc consulted (Mariola) - Vascular surgery consulted (Shyla)- IVC filter Flat affect - Administer PHQ-9 - Psychiatry consulted (Sonya)- f/u recs Sinus tachycardia, fevers, improving- suspect 2/2 PE/DVT +/- central fevers 2/2 CVA - Most recent fever 100.6 on 08/22 8 AM - No changes to rate control meds as to not lower BP (already low normal) - Procal low (0.12) - EKG: sinus tachycardia (130s)- HR now 80-100s sinus - Blood Cx no growth - Repeat no growth - Echo x2: EF 60-65%, no abnormalities, no vegetations - Lopressor 25 mg PO BID Low back and leg pain, stable - CPK wnl - Lidoderm patch - Avoid Tylenol due to LFTs, avoid NSAIDs due to hemorrhagic stroke Constipation, resolved - [place]ot PO BID - Miralax 17 g PO daily Syncope, resolved- likely vasovagal - CARPENTER REPAIRER 09/07- syncope <1 minute while on commode, patient back to baseline without intervention - Reinforce fall precautions - Patient needs assistance with bedside commode Alcohol use disorder - MV daily - Thiamine 100 mg PO daily - Folate 1 g PO daily - Cessation counseling [place] use disorder - UDS positive - Cessation counseling Transaminitis, resolved - Continue to monitor CMP - Abd u/s: no significant or acute findings - Hepatitis panel negative - HIV pending (received 08/29) Rash, resolved- consistent with urticaria - Discontinue topical Benadryl PRN - Discontinue topical cortizone 0.5% PRN Pneumonia, resolved- HCAP vs aspiration - Aspiration precautions - CXR: Mild venous congestion. Patchy increased markings at the left lung base with small left pleural effusion. Small nodular density projects over the left lung apex. Cardiomegaly. - Repeat CXR 08/20: no active disease - Lactobacillus acidophilus BID Urinary tract infection, resolved - Urine Cx: Enterococcus faecalis - Repeat no growth - Finished 5 day course of Cipro 400 mg IV Q12H - Repeat UA, Cx negative Scrotal pain, resolved - Testicular u/s: b/l scrotal thickening Ppx: VTE: contraindicated, only SCD to RLE GI: PTX 40 mg PO daily Code status: full code Case was discussed with attending, Dr. Castro. <Bienvenido Castro - Last Filed: 09/15/18 20:34> Objective - Vital Signs/Intake and Output Vital Signs (last 24 hours): Temp Pulse Resp BP Pulse Ox 98.2 F 96 H 20 89/51 L 94 L 09/15/18 16:00 09/15/18 16:00 09/15/18 16:00 09/15/18 16:00 09/15/18 16:00 Intake and Output: 09/15/18 09/16/18 18:59 06:59 Intake Total 600 Balance 600 - Medications Medications: Current Medications Aspirin (Ecotrin) 81 mg PO DAILY [facility] Last Admin: 09/15/18 09:12 Dose: 81 mg Bisacodyl (Dulcolax) 5 mg PO ONCE PRN PRN Reason: Constipation Last Admin: 09/15/18 18:12 Dose: 5 mg Bisacodyl (Dulcolax) 5 mg PO DAILY PRN PRN Reason: Constipation Clopidogrel Bisulfate (Plavix) 75 mg PO DAILY [facility] Last Admin: 09/15/18 09:11 Dose: 75 mg Folic Acid (Folic Acid) 1 mg PO DAILY [facility] Last Admin: 09/15/18 09:12 Dose: 1 mg Hydroxyzine HCl (Atarax) 25 mg PO Q6 PRN PRN Reason: Anxiety Lactobacillus Acidophilus (Bacid Acidophilus) 1 cap PO BID [facility] Last Admin: 09/15/18 18:14 Dose: 1 cap Lidocaine (Lidoderm) 1 ea TD DAILY [facility] Last Admin: 09/15/18 09:10 Dose: 1 ea Lidocaine (Lidoderm) 1 ea TD DAILY [facility] Last Admin: 09/15/18 09:11 Dose: 1 ea Metoprolol Tartrate (Lopressor) 12.5 mg PO BID [facility] Last Admin: 09/15/18 18:14 Dose: Not Given Multivitamins (Hexavitamin) 1 tab PO DAILY [facility] Last Admin: 09/15/18 09:12 Dose: 1 tab Rosuvastatin Calcium (Crestor) 20 mg PO HS [facility] Last Admin: 09/14/18 21:57 Dose: 20 mg Senna/Docusate Sodium (Senokot S 50 Mg-8.6 Mg) 1 tab PO BID [facility] Last Admin: 09/15/18 18:12 Dose: 1 tab Sertraline HCl (Zoloft) 50 mg PO DAILY [facility] Last Admin: 09/15/18 09:12 Dose: 50 mg Thiamine HCl (Vitamin B1 Tab) 100 mg PO DAILY [facility] Last Admin: 09/15/18 09:12 Dose: 100 mg Trazodone HCl (Desyrel) 50 mg PO HS [facility] Last Admin: 09/14/18 21:57 Dose: 50 mg - Labs Labs: 09/13/18 08:25 09/13/18 08:25 PT 14.9 SECONDS (9.7-12.2) H 08/28/18 05:46 INR 1.4 08/28/18 05:46 APTT 26 SECONDS (21-34) 08/28/18 05:46 Attending/Attestation - Attestation I have personally seen and examined this patient.: Yes I have fully participated in the care of the patient.: Yes I have reviewed all pertinent clinical information, including history, physical exam and plan: Yes Notes (Text): 09/15/18 20:34 This is a late entry. Care of this patient was gone over with resident Bienvenido Castro D.O.
[2018-09-09 07:56] LABS: ALB/GLOB RATIO 0.8 (1.0-2.1); ALBUMIN 3.2 g/dL (3.5-5.0); ALT/SGPT 48 U/L (21-72); AST/SGOT 40 U/L (17-59); BLOOD UREA NITROGEN 6 mg/dL (9-20); GFR NON-AFRICAN AMERICAN > 60
[2018-09-09] MEDS: Aritificial Tears (15ml) OU SCH ×2 (10:26→17:48)
[2018-09-09] MEDS: Lactobacillus Acidophilus 500 MU Cap PO SCH ×2 (10:26→17:48)
[2018-09-09] MEDS: Pantoprazole 40 mg EC Tab PO SCH (10:27)
[2018-09-09] MEDS: Multiple Vitamins Tab PO SCH (10:27)
[2018-09-09] MEDS: Docusate-Senna 50 mg-8.6 mg Tab PO SCH ×2 (10:27→17:48)
[2018-09-09] MEDS: POLYETHYLENE GLYCOL 3350 17 GM/Dose PACKET PO SCH (10:27)
[2018-09-09] MEDS: Lidocaine 5% Patch TD SCH ×2 (10:27→10:28)
--- NOTE | 2018-09-09 15:05 | CARD ---
APPROVED REPORT Date of service: 09/07/2018 EKG Measurement Heart [id number] <Conclusion> Normal sinus rhythm Possible Left atrial enlargement Low voltage QRS Nonspecific ST abnormality Abnormal ECG
--- NOTE | 2018-09-10 07:35 | CP.PCM.PN ---
<Olga Lidia Garland - Last Filed: 09/10/18 11:38> Subjective - Date & Time of Evaluation Date of Evaluation: 09/10/18 Time of Evaluation: 07:34 - Subjective Subjective: PGY-1 Olga Lidia Garland D.O. Medicine progress note for Dr. Castro's service: Patient was seen and examined this morning. His left leg swelling has increased. He denies pain. He has not had a BM in 3 days, and he is hesitant to eat because he does not like not being able to use the bathroom. He is still unable to move his L arm or leg on his own. Objective - Vital Signs/Intake and Output Vital Signs (last 24 hours): Temp Pulse Resp BP Pulse Ox 98.5 F 87 20 97/55 L 95 09/10/18 04:00 09/10/18 04:00 09/10/18 04:00 09/10/18 06:05 09/10/18 04:00 Intake and Output: 09/10/18 09/10/18 06:59 18:59 Output Total 450 Balance -450 - Medications Medications: Current Medications Artificial Tears (Artificial Tears) 0 ml OU BID [facility] Last Admin: 09/09/18 17:48 Dose: 1 drop Aspirin (Ecotrin) 81 mg PO DAILY [facility] Last Admin: 09/09/18 10:26 Dose: 81 mg Clopidogrel Bisulfate (Plavix) 75 mg PO DAILY [facility] Last Admin: 09/09/18 10:27 Dose: 75 mg Folic Acid (Folic Acid) 1 mg PO DAILY [facility] Last Admin: 09/09/18 10:26 Dose: 1 mg Lactobacillus Acidophilus (Bacid Acidophilus) 1 cap PO BID [facility] Last Admin: 09/09/18 17:48 Dose: 1 cap Lidocaine (Lidoderm) 1 ea TD DAILY [facility] Last Admin: 09/09/18 10:27 Dose: 1 ea Lidocaine (Lidoderm) 1 ea TD DAILY [facility] Last Admin: 09/09/18 10:28 Dose: Not Given Metoprolol Tartrate (Lopressor) 25 mg PO BID [facility] Multivitamins (Hexavitamin) 1 tab PO DAILY [facility] Last Admin: 09/09/18 10:27 Dose: 1 tab Pantoprazole Sodium (Protonix Ec Tab) 40 mg PO DAILY [facility] Last Admin: 09/09/18 10:27 Dose: 40 mg Polyethylene Glycol (Miralax) 17 gm PO DAILY [facility] Last Admin: 09/09/18 10:27 Dose: 17 gm Rosuvastatin Calcium (Crestor) 20 mg PO HS [facility] Last Admin: 09/09/18 21:55 Dose: 20 mg Senna/Docusate Sodium (Senokot S 50 Mg-8.6 Mg) 1 tab PO BID [facility] Last Admin: 09/09/18 17:48 Dose: 1 tab Thiamine HCl (Vitamin B1 Tab) 100 mg PO DAILY [facility] Last Admin: 09/09/18 10:27 Dose: 100 mg - Labs Labs: 09/09/18 07:20 09/09/18 07:20 PT 14.9 SECONDS (9.7-12.2) H 08/28/18 05:46 INR 1.4 08/28/18 05:46 APTT 26 SECONDS (21-34) 08/28/18 05:46 - Constitutional Appears: No Acute Distress - Head Exam Head Exam: ATRAUMATIC, NORMAL INSPECTION - Eye Exam Eye Exam: EOMI, Normal appearance, PERRL - ENT Exam ENT Exam: Mucous Membranes Moist - Neck Exam Neck Exam: Normal Inspection - Respiratory Exam Respiratory Exam: Clear to Ausculation Bilateral, NORMAL BREATHING PATTERN. absent: Accessory Muscle Use, Respiratory Distress - Cardiovascular Exam Cardiovascular Exam: REGULAR RHYTHM, +S1, +S2 - GI/Abdominal Exam GI & Abdominal Exam: Soft. absent: Distended, Tenderness - Rectal Exam Rectal Exam: Deferred - Extremities Exam Extremities Exam: Pedal Edema (nonpitting edema of LLE). absent: Tenderness - Neurological Exam Neurological Exam: Alert, Awake, Oriented x3 Neuro motor strength exam: Left Upper Extremity: 0, Right Upper Extremity: 5, Left Lower Extremity: 0, Right Lower Extremity: 5 - Psychiatric Exam Psychiatric exam: Flat Affect - Skin Skin Exam: Dry, Intact, Normal Color, Warm Assessment and Plan - Assessment and Plan (Free Text) Assessment: Patient is a 52 yo male with a PMH of gastric ulcers who presented with L-side paralysis. Found to have ischemic stroke then hemorrhagic conversion- suspect embolic stroke 2/2 Afib 2/2 alcohol. MRI on 08/14 showed large R MCA infarct and basal ganglia and posterior frontoparietal hemorrhagic with 11 mm midline shift. Repeat CT continued to show worsening bleed; however most recent shows improvement of midline shift/mass effect. Patient continued to have tachycardia and fevers- discovered PE and LLE DVT. IVC filter placed 08/20. 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 Working with PT. Neurology rec starting ASA 81 and Plavix 75- signed off case. Patient downgraded to med/surg. Psych consult to evaluate for depression. Obtain labs MWF. Pending contact with patient's in DR for potential placement. Patient's son in [place] does not want to be involved, as per CM. Plan: 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 - PT/OT- recommend acute rehab - L shoulder XR: no subluxation/dislocation, no fracture - L knee immobilizer during PT/standing ONLY - PT taught exercises to patient to continue engaging passive ROM to prevent adhesive capsulitis - Patient hesitant during PT sessions, no independent movement of L side - DIRECTOR OF CARDIOPULMONARY SERVICES consulted- advanced bite size diet/thin liquids - Reconsulted 09/10- f/u recs - SW/CM consulted- waiting to hear back from patient's in DR - Patient's insurance does not cover rehab. Patient applying for [facility] emergency department for inpatient stay, continuing inpatient PT/OT - Turn and reposition Q2H - Daily skin checks Hemorrhagic conversion of R MCA ischemic CVA- suspect embolic 2/2 Afib 2/2 alcohol use - Repeated CTs of head continued to show evolution/increase of bleed - Initial CT head 08/10: There is a large on MCA branch territory infarct involving the right basal ganglia and right posterior frontoparietal region extending to the vertex with mass effect with overlying sulcal effacement, compression of the right lateral ventricle and shift of the septum pellucidum from right to left by approximately 4.9 mm. Slight dilatation of the left lateral ventricle suggesting mild early compressive effects at the level of the left foramen of Garza. No definitive evidence of acute intracranial hemorrhage. - Most recent CT head 08/29: Continued evolution hemorrhagic conversion changes of a relatively large right MCA territory branch infarct. Improved mass effect and midline shift - MRI brain 08/15: There is a relatively large subacute right MCA territory infarct with areas of hemorrhage in the basal ganglia and right posterior frontoparietal watershed zone as described. Persistent mass effect with compression of the right lateral ventricle and [id number] midline shift with septum pellucidum located approximately 11 mm to left of midline. Mild on dilatation left lateral ventricle due to mild compressive effects at the level of the left foramen of Garza. - Aspiration precautions - Seizure precautions - Lipid panel: choles 271, LDL 184, HDL 59, TG 100 - EKGs: sinus tachycardia - No Afib seen on telemetry - Echo x2: EF 60-65%, no abnormalities, no vegetations - Echo with bubble study: no thrombus, no PFO - No therapeutic anticoagulation - ASA 81 mg PO daily - Plavix 75 mg PO daily - Crestor 20 mg PO QHS - Neurosurgery consulted (Naomy)- no intervention - Neurology consulted (Shavonne/Dain)- hold anticoag but start ASA 81 and Plavix 75 - Cardiology consulted (Neal)- no need for DAMIEN, okay to start ASA 81 and Plavix 75 Pulmonary embolism and LLE Deep vein thrombosis - Leukocytosis resolved - D-dimer elevated (3912) - CTA chest 08/19: extensive pulmonary thromboembolism - LE Dopplers 08/19: extensive left lower extremity DVT - LLE edema with recent increase 09/09 - NO knee immobilizer while in bed - No SCD on LLE - Hold anticoagulation due to hemorrhagic stroke - IVC filter 08/20 - Hypercoagulable work-up negative - Hem/onc consulted (Mariola) - Vascular surgery consulted (Shyla)- IVC filter Constipation, acute- no BM x3 days - Sen[place]ot PO BID - Dulcolax DE x1 - If no BM by end of day, will give enema Poor PO intake - Treating constipation (see above) - Leisure Studies Professor referral Flat affect, worsening - Administer PHQ-9 - Psychiatry consulted (Sonya)- psychiatry contacted 3 times to see patient (08/30, 09/02, 09/10), no recs or note as of morning of 09/10 Sinus tachycardia, fevers, improving- suspect 2/2 PE/DVT +/- central fevers 2/2 CVA - Most recent fever 100.6 on 08/22 8 AM - No changes to rate control meds as to not lower BP (already low normal) - Procal low (0.12) - EKG: sinus tachycardia (130s)- HR now 80-100s sinus - Blood Cx no growth - Repeat no growth - Echo x2: EF 60-65%, no abnormalities, no vegetations - Recent hypotensive (90s/50-60s)- suspect due to poor PO intake, tachycardia compensation - Decrease Lopressor to 12.5 mg PO BID Low back and leg pain, stable - CPK wnl - Lidoderm patch - Avoid Tylenol due to LFTs, avoid NSAIDs due to hemorrhagic stroke Syncope, resolved- likely vasovagal - LICENSED BONDSMAN 09/07- syncope <1 minute while on commode, patient back to baseline without intervention - Reinforce fall precautions - Patient needs assistance with bedside commode Alcohol use disorder, chronic - MV daily - Thiamine 100 mg PO daily - Folate 1 g PO daily - Cessation counseling [place] use disorder, chronic - UDS positive - Cessation counseling Transaminitis, resolved - Continue to monitor CMP - Abd u/s: no significant or acute findings - Hepatitis panel negative - HIV pending (received 08/29) Rash, resolved- consistent with urticaria - Discontinue topical Benadryl PRN - Discontinue topical cortizone 0.5% PRN Pneumonia, resolved- HCAP vs aspiration - Aspiration precautions - CXR: Mild venous congestion. Patchy increased markings at the left lung base with small left pleural effusion. Small nodular density projects over the left lung apex. Cardiomegaly. - Repeat CXR 08/20: no active disease - Lactobacillus acidophilus BID Urinary tract infection, resolved - Urine Cx: Enterococcus faecalis - Repeat no growth - Finished 5 day course of Cipro 400 mg IV Q12H - Repeat UA, Cx negative Scrotal pain, resolved - Testicular u/s: b/l scrotal thickening Ppx: VTE: contraindicated, only SCD to RLE GI: PTX 40 mg PO daily Code status: full code Case was discussed with attending, Dr. Castro. <Bienvenido Castro - Last Filed: 09/15/18 20:34> Objective - Vital Signs/Intake and Output Vital Signs (last 24 hours): Temp Pulse Resp BP Pulse Ox 98.2 F 96 H 20 89/51 L 94 L 09/15/18 16:00 09/15/18 16:00 09/15/18 16:00 09/15/18 16:00 09/15/18 16:00 Intake and Output: 09/15/18 09/16/18 18:59 06:59 Intake Total 600 Balance 600 - Medications Medications: Current Medications Aspirin (Ecotrin) 81 mg PO DAILY [facility] Last Admin: 09/15/18 09:12 Dose: 81 mg Bisacodyl (Dulcolax) 5 mg PO ONCE PRN PRN Reason: Constipation Last Admin: 09/15/18 18:12 Dose: 5 mg Bisacodyl (Dulcolax) 5 mg PO DAILY PRN PRN Reason: Constipation Clopidogrel Bisulfate (Plavix) 75 mg PO DAILY [facility] Last Admin: 09/15/18 09:11 Dose: 75 mg Folic Acid (Folic Acid) 1 mg PO DAILY [facility] Last Admin: 09/15/18 09:12 Dose: 1 mg Hydroxyzine HCl (Atarax) 25 mg PO Q6 PRN PRN Reason: Anxiety Lactobacillus Acidophilus (Bacid Acidophilus) 1 cap PO BID [facility] Last Admin: 09/15/18 18:14 Dose: 1 cap Lidocaine (Lidoderm) 1 ea TD DAILY [facility] Last Admin: 09/15/18 09:10 Dose: 1 ea Lidocaine (Lidoderm) 1 ea TD DAILY [facility] Last Admin: 09/15/18 09:11 Dose: 1 ea Metoprolol Tartrate (Lopressor) 12.5 mg PO BID [facility] Last Admin: 09/15/18 18:14 Dose: Not Given Multivitamins (Hexavitamin) 1 tab PO DAILY [facility] Last Admin: 09/15/18 09:12 Dose: 1 tab Rosuvastatin Calcium (Crestor) 20 mg PO HS [facility] Last Admin: 09/14/18 21:57 Dose: 20 mg Senna/Docusate Sodium (Senokot S 50 Mg-8.6 Mg) 1 tab PO BID [facility] Last Admin: 09/15/18 18:12 Dose: 1 tab Sertraline HCl (Zoloft) 50 mg PO DAILY [facility] Last Admin: 09/15/18 09:12 Dose: 50 mg Thiamine HCl (Vitamin B1 Tab) 100 mg PO DAILY [facility] Last Admin: 09/15/18 09:12 Dose: 100 mg Trazodone HCl (Desyrel) 50 mg PO HS [facility] Last Admin: 09/14/18 21:57 Dose: 50 mg - Labs Labs: 09/13/18 08:25 09/13/18 08:25 PT 14.9 SECONDS (9.7-12.2) H 08/28/18 05:46 INR 1.4 08/28/18 05:46 APTT 26 SECONDS (21-34) 08/28/18 05:46 Attending/Attestation - Attestation I have personally seen and examined this patient.: Yes I have fully participated in the care of the patient.: Yes I have reviewed all pertinent clinical information, including history, physical exam and plan: Yes Notes (Text): 09/15/18 20:34 This is a late entry. Care of this patient was gone over with resident Bienvenido Castro D.O.
[2018-09-10] MEDS: Docusate-Senna 50 mg-8.6 mg Tab PO SCH ×2 (10:41→18:39)
[2018-09-10] MEDS: Multiple Vitamins Tab PO SCH (10:41)
[2018-09-10] MEDS: Pantoprazole 40 mg EC Tab PO SCH (10:41)
[2018-09-10] MEDS: Lactobacillus Acidophilus 500 MU Cap PO SCH ×2 (10:41→18:39)
[2018-09-10] MEDS: Lidocaine 5% Patch TD SCH ×2 (10:42)
--- NOTE | 2018-09-10 16:04 | PCM.PSYCH ---
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 Today patient was consulted by psychiatry because of depressed mood and poor sleep. The patient says that he is only able to sleep a little bit and only on his back. The patient feels depressed and has little motivation but denies any suicidal ideations, hopelessness or hallucinations. The patient states that he was drinking whiskey when his heart attack happened. The patient had his first drink at age 21, and drinks 2 bottles of rum every weekend, but has not drank since his heart attack 4-5 weeks ago. The patient denies any history of heroin, cocaine, marijuana, or other drug use. The patient denies any family history of alcohol or drug use, and has never been to detox or rehab. He appears depressed and amotivational. However he denies any auditory hallucinations or any paranoia. He denies any irritability or any agitation. Past Psych History: denies Past Medical History: denies Family Psych History: denies Current Medications: Active Medications Generic Name Dose Route Start Last Admin Trade Name Gigiq PRN Reason Stop Dose Admin Aspirin 81 mg 08/31/18 15:30 09/10/18 10:41 Ecotrin PO 81 mg DAILY [facility] Administration Clopidogrel Bisulfate 75 mg 09/02/18 10:00 09/10/18 10:41 Plavix PO 75 mg DAILY [facility] Administration Folic Acid 1 mg 08/19/18 10:00 09/10/18 10:41 Folic Acid PO 1 mg DAILY [facility] Administration Lactobacillus Acidophilus 1 cap 08/19/18 10:00 09/10/18 10:41 Bacid Acidophilus PO 1 cap BID [facility] Administration Lidocaine 1 ea 08/26/18 10:00 09/10/18 10:42 Lidoderm TD 1 ea DAILY [facility] Administration Lidocaine 1 ea 08/29/18 14:15 09/10/18 10:42 Lidoderm TD 1 ea DAILY [facility] Administration Metoprolol Tartrate 12.5 mg 09/10/18 10:45 09/10/18 10:41 Lopressor PO 12.5 mg BID [facility] Administration Multivitamins 1 tab 08/19/18 10:00 09/10/18 10:41 Hexavitamin PO 1 tab DAILY [facility] Administration Pantoprazole Sodium 40 mg 08/16/18 10:00 09/10/18 10:41 Protonix Ec Tab PO 40 mg DAILY [facility] Administration Rosuvastatin Calcium 20 mg 09/04/18 22:00 09/09/18 21:55 Crestor PO 20 mg HS [facility] Administration Senna/Docusate Sodium 1 tab 08/13/18 12:00 09/10/18 10:41 Senokot S 50 Mg-8.6 Mg PO 1 tab BID [facility] Administration Thiamine HCl 100 mg 08/19/18 10:00 09/10/18 10:41 Vitamin B1 Tab PO 100 mg DAILY [facility] Administration Past Psychiatric History - Past Psychiatric History Previous Treatment History: None Pertinent Medical Hx (Current Medical&Sleep Prob, Allergies): Allergies Allergy/AdvReac Type Severity Reaction Status Date / Time No Known Allergies Allergy Verified 08/10/18 17:59 No Known Home Med 08/10/18 Review of Systems - Review of Systems All systems: reviewed and no additional remarkable complaints except - Psychiatric Psychiatric: Anxiety, Irritability. absent: Suicidal Ideation Mental Status Examination - Personal Presentation Personal Presentation: Looks stated age - Affect Affect: Constricted, Depressed - Motor Activity Motor Activity: Calm - Reliability in Providing Information Reliability in Providing Information: Fair - Speech Speech: Organized - Mood Mood: Depressed, Anxious - Formal Thought Process Formal Thought Process: No Impairment - Obsessions/Compulsions Obsessions: No Compulsions: No - Cognitive Functions Orientation: Person, Place, Situation, Time Sensorium: Alert Attention/Concentration: Attentive Abstract Thinking: [place] Estimate of Intelligence: Below average Judgement: Imparied, as evidence by: Poor judgement, Imparied, as evidence by: Lack of insight into illness - Risk Risk: Diminished functioning - Limitations Limitations: Living alone DSM 5 DX - DSM 5 DSM 5 Diagnosis: Alcohol use disorder severe Major depressive disorder single episode moderate - Recommended/Plan of Treatment Treatment Recommendations and Plan of Treatment: Alcohol use disorder severe Major depressive disorder single episode moderate CBT Psychoeducation Supportive therapy Zoloft 50 mg daily Trazodone 50 mg p.o. nightly Hydroxyzine 25 mg p.o. every 6 hours as needed Patient is psychiatrically stable and cleared for discharge
--- NOTE | 2018-09-11 07:11 | CP.PCM.PN ---
<Olga Lidia Garland - Last Filed: 09/11/18 10:42> Subjective - Date & Time of Evaluation Date of Evaluation: 09/11/18 Time of Evaluation: 07:04 - Subjective Subjective: PGY-1 Olga Lidia Garland D.O. Medicine progress note for Dr. Castro's service: Patient was seen and examined this morning. He was sleeping but easily arousable. He has no new complaints. He had a BM yesterday. He is still not eating much because he does not like having to go to the bathroom in his bed or at bedside commode. He is wearing RITA stocking on LLE. Denies CANO, chest pain, SOB. Objective - Vital Signs/Intake and Output Vital Signs (last 24 hours): Temp Pulse Resp BP Pulse Ox 98.0 F 94 H 20 105/70 95 09/10/18 23:50 09/10/18 23:50 09/10/18 23:50 09/10/18 23:50 09/10/18 23:50 Intake and Output: 09/11/18 09/11/18 06:59 18:59 Intake Total 480 Output Total 800 Balance -320 - Medications Medications: Current Medications Aspirin (Ecotrin) 81 mg PO DAILY [facility] Last Admin: 09/10/18 10:41 Dose: 81 mg Clopidogrel Bisulfate (Plavix) 75 mg PO DAILY [facility] Last Admin: 09/10/18 10:41 Dose: 75 mg Folic Acid (Folic Acid) 1 mg PO DAILY [facility] Last Admin: 09/10/18 10:41 Dose: 1 mg Hydroxyzine HCl (Atarax) 25 mg PO Q6 PRN PRN Reason: Anxiety Lactobacillus Acidophilus (Bacid Acidophilus) 1 cap PO BID [facility] Last Admin: 09/10/18 18:39 Dose: 1 cap Lidocaine (Lidoderm) 1 ea TD DAILY [facility] Last Admin: 09/10/18 10:42 Dose: 1 ea Lidocaine (Lidoderm) 1 ea TD DAILY [facility] Last Admin: 09/10/18 10:42 Dose: 1 ea Metoprolol Tartrate (Lopressor) 12.5 mg PO BID [facility] Last Admin: 09/10/18 18:41 Dose: Not Given Multivitamins (Hexavitamin) 1 tab PO DAILY [facility] Last Admin: 09/10/18 10:41 Dose: 1 tab Pantoprazole Sodium (Protonix Ec Tab) 40 mg PO DAILY [facility] Last Admin: 09/10/18 10:41 Dose: 40 mg Rosuvastatin Calcium (Crestor) 20 mg PO HS [facility] Last Admin: 09/10/18 21:37 Dose: 20 mg Senna/Docusate Sodium (Senokot S 50 Mg-8.6 Mg) 1 tab PO BID [facility] Last Admin: 09/10/18 18:39 Dose: 1 tab Sertraline HCl (Zoloft) 50 mg PO DAILY [facility] Last Admin: 09/10/18 18:38 Dose: 50 mg Thiamine HCl (Vitamin B1 Tab) 100 mg PO DAILY [facility] Last Admin: 09/10/18 10:41 Dose: 100 mg Zolpidem Tartrate (Ambien) 5 mg PO HS PRN PRN Reason: Insomnia - Labs Labs: 09/09/18 07:20 09/09/18 07:20 PT 14.9 SECONDS (9.7-12.2) H 08/28/18 05:46 INR 1.4 08/28/18 05:46 APTT 26 SECONDS (21-34) 08/28/18 05:46 - Additional Findings Additional findings: - Constitutional Appears: No Acute Distress - Head Exam Head Exam: ATRAUMATIC, NORMAL INSPECTION - Eye Exam Eye Exam: EOMI, Normal appearance, PERRL - ENT Exam ENT Exam: Mucous Membranes Moist - Neck Exam Neck Exam: Normal Inspection - Respiratory Exam Respiratory Exam: Clear to Ausculation Bilateral, NORMAL BREATHING PATTERN. absent: Accessory Muscle Use, Respiratory Distress - Cardiovascular Exam Cardiovascular Exam: REGULAR RHYTHM, +S1, +S2 - GI/Abdominal Exam GI & Abdominal Exam: Soft. absent: Distended, Tenderness - Rectal Exam Rectal Exam: Deferred - Extremities Exam Extremities Exam: Pedal Edema (nonpitting edema of LLE). absent: Tenderness LLE knee high RITA stocking - Neurological Exam Neurological Exam: Alert, Awake, Oriented x3 Neuro motor strength exam: Left Upper Extremity: 0, Right Upper Extremity: 5, Left Lower Extremity: 0, Right Lower Extremity: 5 - Psychiatric Exam Psychiatric exam: Flat Affect - Skin Skin Exam: Dry, Intact, Normal Color, Warm Assessment and Plan - Assessment and Plan (Free Text) Assessment: Patient is a 52 yo male with a PMH of gastric ulcers who presented with L-side paralysis. Found to have ischemic stroke then hemorrhagic conversion- suspect embolic stroke 2/2 Afib 2/2 alcohol. MRI on 08/14 showed large R MCA infarct and basal ganglia and posterior frontoparietal hemorrhagic with 11 mm midline shift. Repeat CT continued to show worsening bleed; however most recent shows improvement of midline shift/mass effect. Patient continued to have tachycardia and fevers- discovered PE and LLE DVT. IVC filter placed 08/20. LLE continued to be swollen and RITA stocking was placed. 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 Working with PT; minimal improvement. Neurology rec starting ASA 81 and Plavix 75- signed off case. Patient downgraded to med/surg. Psych consult to evaluate for depression; started patient on meds 09/11. Obtain labs only MWF. Pending contact with patient's in DR for potential placement. Patient's son in [place] does not want to be involved, as per CM. Plan: 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- minimal improvement with PT - PT/OT- recommend acute rehab - L shoulder XR: no subluxation/dislocation, no fracture - L knee immobilizer during PT/standing ONLY - PT taught exercises to patient to continue engaging passive ROM to prevent adhesive capsulitis - Patient hesitant during PT sessions, no independent movement of L side - P[employer] consulted- advanced bite size diet/thin liquids - Reconsulted 09/10- continue with same diet as patient cannot cut food without use of left hand, patient would like to maintain current diet order - SW/CM consulted- waiting to hear back from patient's in DR - Patient's insurance does not cover rehab. Patient applying for [facility] for inpatient stay, continuing inpatient PT/OT - Turn and reposition Q2H - Daily skin checks Hemorrhagic conversion of R MCA ischemic CVA- suspect embolic 2/2 Afib 2/2 alcohol use - Repeated CTs of head continued to show evolution/increase of bleed - Initial CT head 08/10: There is a large on MCA branch territory infarct involving the right basal ganglia and right posterior frontoparietal region extending to the vertex with mass effect with overlying sulcal effacement, compression of the right lateral ventricle and shift of the septum pellucidum from right to left by approximately 4.9 mm. Slight dilatation of the left lateral ventricle suggesting mild early compressive effects at the level of the left foramen of Garza. No definitive evidence of acute intracranial hemorrhage. - Most recent CT head 08/29: Continued evolution hemorrhagic conversion changes of a relatively large right MCA territory branch infarct. Improved mass effect and midline shift - MRI brain 08/15: There is a relatively large subacute right MCA territory infarct with areas of hemorrhage in the basal ganglia and right posterior frontoparietal watershed zone as described. Persistent mass effect with compression of the right lateral ventricle and [id number] midline shift with septum pellucidum located approximately 11 mm to left of midline. Mild on dilatation left lateral ventricle due to mild compressive effects at the level of the left foramen of Garza. - Aspiration precautions - Seizure precautions - Lipid panel: choles 271, LDL 184, HDL 59, TG 100 - EKGs: sinus tachycardia - No Afib seen on telemetry - Echo x2: EF 60-65%, no abnormalities, no vegetations - Echo with bubble study: no thrombus, no PFO - No therapeutic anticoagulation - ASA 81 mg PO daily - Plavix 75 mg PO daily - Crestor 20 mg PO QHS - Neurosurgery consulted (Naomy)- no intervention - Neurology consulted (Shavonne/Dain)- hold anticoag but start ASA 81 and Plavix 75 - Cardiology consulted (Neal)- no need for DAMIEN, okay to start ASA 81 and Plavix 75 Pulmonary embolism and LLE Deep vein thrombosis - Leukocytosis resolved - D-dimer elevated (3912) - CTA chest 08/19: extensive pulmonary thromboembolism - LE Dopplers 08/19: extensive left lower extremity DVT - LLE edema with recent increase 09/09 - NO knee immobilizer while in bed - RITA stocking on LLE - No SCD on LLE - Hold anticoagulation due to hemorrhagic stroke - IVC filter 08/20 - Hypercoagulable work-up negative - Hem/onc consulted (Mariola) - Vascular surgery consulted ([facility])- IVC filter, RITA stocking Constipation, acute- BM yesterday 09/10 after Dulcolax - Senakot PO BID - Dulcolax PO PRN Poor PO intake - Treating constipation (see above) - [facility] referral- f/u recs Depression, worsening - Zoloft 50 mg PO daily - Ambien 5 mg PO QHS PRN - Atarax 25 mg PO Q6H PRN - Psychiatry consulted (Sonya/Max) Sinus tachycardia, fevers, improving- suspect 2/2 PE/DVT +/- central fevers 2/2 CVA - Most recent fever 100.6 on 08/22 8 AM - No increases to rate control meds as to not lower BP (already low normal) - Procal low (0.12) - EKG: sinus tachycardia (130s)- HR now 80-100s sinus - Blood Cx no growth - Repeat no growth - Echo x2: EF 60-65%, no abnormalities, no vegetations - Recent hypotensive (90s/50-60s), stable- suspect due to poor PO intake, tachycardia compensation - Decrease Lopressor to 12.5 mg PO BID Low back and leg pain, stable - CPK wnl - Lidoderm patch - Avoid Tylenol due to LFTs, avoid NSAIDs due to hemorrhagic stroke Alcohol use disorder, chronic - MV daily - Thiamine 100 mg PO daily - Folate 1 mg PO daily - Cessation counseling [place] use disorder, chronic - UDS positive - Cessation counseling Syncope, resolved- likely vasovagal - BRICK OR [employer]KER 09/07- syncope <1 minute while on commode, patient back to baseline without intervention - Reinforce fall precautions - Patient needs assistance with bedside commode Transaminitis, resolved - Continue to monitor CMP - Abd u/s: no significant or acute findings - Hepatitis panel negative - HIV pending (received 08/29) Rash, resolved- consistent with urticaria - Discontinue topical Benadryl PRN - Discontinue topical cortizone 0.5% PRN Pneumonia, resolved- HCAP vs aspiration - Aspiration precautions - CXR: Mild venous congestion. Patchy increased markings at the left lung base with small left pleural effusion. Small nodular density projects over the left lung apex. Cardiomegaly. - Repeat CXR 08/20: no active disease - Lactobacillus acidophilus BID Urinary tract infection, resolved - Urine Cx: Enterococcus faecalis - Repeat no growth - Finished 5 day course of Cipro 400 mg IV Q12H - Repeat UA, Cx negative Scrotal pain, resolved - Testicular u/s: b/l scrotal thickening Ppx: VTE: contraindicated, only SCD to RLE, RITA stocking to LLE GI: PTX 40 mg PO daily Code status: full code Case was discussed with attending, Dr. Castro. <Bienvenido Castro - Last Filed: 09/15/18 20:34> Objective - Vital Signs/Intake and Output Vital Signs (last 24 hours): Temp Pulse Resp BP Pulse Ox 98.2 F 96 H 20 89/51 L 94 L 09/15/18 16:00 09/15/18 16:00 09/15/18 16:00 09/15/18 16:00 09/15/18 16:00 Intake and Output: 09/15/18 09/16/18 18:59 06:59 Intake Total 600 Balance 600 - Medications Medications: Current Medications Aspirin (Ecotrin) 81 mg PO DAILY [facility] Last Admin: 09/15/18 09:12 Dose: 81 mg Bisacodyl (Dulcolax) 5 mg PO ONCE PRN PRN Reason: Constipation Last Admin: 09/15/18 18:12 Dose: 5 mg Bisacodyl (Dulcolax) 5 mg PO DAILY PRN PRN Reason: Constipation Clopidogrel Bisulfate (Plavix) 75 mg PO DAILY [facility] Last Admin: 09/15/18 09:11 Dose: 75 mg Folic Acid (Folic Acid) 1 mg PO DAILY [facility] Last Admin: 09/15/18 09:12 Dose: 1 mg Hydroxyzine HCl (Atarax) 25 mg PO Q6 PRN PRN Reason: Anxiety Lactobacillus Acidophilus (Bacid Acidophilus) 1 cap PO BID [facility] Last Admin: 09/15/18 18:14 Dose: 1 cap Lidocaine (Lidoderm) 1 ea TD DAILY [facility] Last Admin: 09/15/18 09:10 Dose: 1 ea Lidocaine (Lidoderm) 1 ea TD DAILY [facility] Last Admin: 09/15/18 09:11 Dose: 1 ea Metoprolol Tartrate (Lopressor) 12.5 mg PO BID [facility] Last Admin: 09/15/18 18:14 Dose: Not Given Multivitamins (Hexavitamin) 1 tab PO DAILY [facility] Last Admin: 09/15/18 09:12 Dose: 1 tab Rosuvastatin Calcium (Crestor) 20 mg PO HS [facility] Last Admin: 09/14/18 21:57 Dose: 20 mg Senna/Docusate Sodium (Senokot S 50 Mg-8.6 Mg) 1 tab PO BID [facility] Last Admin: 09/15/18 18:12 Dose: 1 tab Sertraline HCl (Zoloft) 50 mg PO DAILY [facility] Last Admin: 09/15/18 09:12 Dose: 50 mg Thiamine HCl (Vitamin B1 Tab) 100 mg PO DAILY [facility] Last Admin: 09/15/18 09:12 Dose: 100 mg Trazodone HCl (Desyrel) 50 mg PO HS [facility] Last Admin: 09/14/18 21:57 Dose: 50 mg - Labs Labs: 09/13/18 08:25 09/13/18 08:25 PT 14.9 SECONDS (9.7-12.2) H 08/28/18 05:46 INR 1.4 08/28/18 05:46 APTT 26 SECONDS (21-34) 08/28/18 05:46 Attending/Attestation - Attestation I have personally seen and examined this patient.: Yes I have fully participated in the care of the patient.: Yes I have reviewed all pertinent clinical information, including history, physical exam and plan: Yes Notes (Text): 09/15/18 20:34 This is a late entry. Care of this patient was gone over with resident Bienvenido Castro D.O.
[2018-09-11 07:35] LABS: BASO % 0.6 % (0.0-2.0); EOS # 0.4 K/uL (0.0-0.7); EOS % 5.7 % (0.0-4.0); HEMOGLOBIN 11.4 g/dL (12.0-18.0); LYMPH # 1.7 K/uL (1.0-4.3); LYMPH % 27.5 % (20.0-40.0); MEAN CELL VOLUME 86.9 fL (80.0-94.0); MEAN CORPUSCULAR HEMOGLOBIN 28.7 pg (27.0-31.0); MEAN PLATELET VOLUME 8.6 fL (7.2-11.7); MONO # 0.7 K/uL (0.0-0.8); MONO % 11.7 % (0.0-10.0); NEUT # 3.5 K/uL (1.8-7.0); NEUT % 54.5 % (50.0-75.0); RBC 3.99 Mil/uL (4.40-5.90); RED CELL DISTRIBUTION WIDTH 12.8 % (11.5-14.5); WHITE BLOOD COUNT 6.3 K/uL (4.8-10.8)
[2018-09-11 07:52] LABS: ALB/GLOB RATIO 0.9 (1.0-2.1); ALBUMIN 3.6 g/dL (3.5-5.0); ALT/SGPT 46 U/L (21-72); AST/SGOT 35 U/L (17-59); BLOOD UREA NITROGEN 6 mg/dL (9-20); GFR NON-AFRICAN AMERICAN > 60
[2018-09-11] MEDS: Lidocaine 5% Patch TD SCH ×2 (09:20)
[2018-09-11] MEDS: Multiple Vitamins Tab PO SCH (09:21)
[2018-09-11] MEDS: Pantoprazole 40 mg EC Tab PO SCH (09:21)
[2018-09-11] MEDS: Lactobacillus Acidophilus 500 MU Cap PO SCH ×2 (09:21→17:27)
[2018-09-11] MEDS: Docusate-Senna 50 mg-8.6 mg Tab PO SCH ×2 (09:21→17:27)
[2018-09-11] MEDS: Bisacodyl 5mg EC Tab PO PRN (21:45)
--- NOTE | 2018-09-12 08:58 | CP.PCM.PCO ---
Physician Communication Note - Physician Communication Note Physician Communication Note: Please see above
[2018-09-12] MEDS: Lidocaine 5% Patch TD SCH ×2 (10:28→10:30)
[2018-09-12] MEDS: Docusate-Senna 50 mg-8.6 mg Tab PO SCH ×2 (10:31→17:45)
[2018-09-12] MEDS: Multiple Vitamins Tab PO SCH (10:31)
[2018-09-12] MEDS: Pantoprazole 40 mg EC Tab PO SCH (10:31)
[2018-09-12] MEDS: Lactobacillus Acidophilus 500 MU Cap PO SCH ×2 (10:31→17:45)
[2018-09-12] MEDS ORDERED: Bisacodyl 5mg EC Tab PO ONE (14:13)
--- NOTE | 2018-09-13 07:35 | CP.PCM.PN ---
<Raul Rehman - Last Filed: 09/13/18 17:18> Subjective - Date & Time of Evaluation Date of Evaluation: 09/13/18 Time of Evaluation: 07:31 - Subjective Subjective: HOSPITALIST SERVICE Pt seen and examined at bedside, pt states paralysis of L side remains the same, reports minor improvement of scrotal pain today, also reports tolerating foods well without dysphasia. Pt denies CP SOB FC NV. Objective - Vital Signs/Intake and Output Vital Signs (last 24 hours): Temp Pulse Resp BP Pulse Ox 98.1 F 78 20 93/62 L 95 09/12/18 23:50 09/12/18 23:50 09/12/18 23:50 09/12/18 23:50 09/12/18 23:50 Intake and Output: 09/13/18 09/13/18 06:59 18:59 Output Total 450 Balance -450 - Medications Medications: Current Medications Aspirin (Ecotrin) 81 mg PO DAILY [facility] Last Admin: 09/12/18 10:31 Dose: 81 mg Bisacodyl (Dulcolax) 5 mg PO ONCE PRN PRN Reason: Constipation Last Admin: 09/11/18 21:45 Dose: 5 mg Bisacodyl (Dulcolax) 5 mg PO DAILY PRN PRN Reason: Constipation Clopidogrel Bisulfate (Plavix) 75 mg PO DAILY [facility] Last Admin: 09/12/18 10:31 Dose: 75 mg Folic Acid (Folic Acid) 1 mg PO DAILY [facility] Last Admin: 09/12/18 10:31 Dose: 1 mg Hydroxyzine HCl (Atarax) 25 mg PO Q6 PRN PRN Reason: Anxiety Lactobacillus Acidophilus (Bacid Acidophilus) 1 cap PO BID [facility] Last Admin: 09/12/18 17:45 Dose: 1 cap Lidocaine (Lidoderm) 1 ea TD DAILY [facility] Last Admin: 09/12/18 10:28 Dose: 1 ea Lidocaine (Lidoderm) 1 ea TD DAILY [facility] Last Admin: 09/12/18 10:30 Dose: 1 ea Metoprolol Tartrate (Lopressor) 12.5 mg PO BID [facility] Last Admin: 09/12/18 17:44 Dose: Not Given Multivitamins (Hexavitamin) 1 tab PO DAILY [facility] Last Admin: 09/12/18 10:31 Dose: 1 tab Pantoprazole Sodium (Protonix Ec Tab) 40 mg PO DAILY [facility] Last Admin: 09/12/18 10:31 Dose: 40 mg Rosuvastatin Calcium (Crestor) 20 mg PO HS [facility] Last Admin: 09/12/18 21:13 Dose: 20 mg Senna/Docusate Sodium (Senokot S 50 Mg-8.6 Mg) 1 tab PO BID [facility] Last Admin: 09/12/18 17:45 Dose: 1 tab Sertraline HCl (Zoloft) 50 mg PO DAILY [facility] Last Admin: 09/12/18 10:31 Dose: 50 mg Thiamine HCl (Vitamin B1 Tab) 100 mg PO DAILY [facility] Last Admin: 09/12/18 10:31 Dose: 100 mg Trazodone HCl (Desyrel) 50 mg PO HS [facility] Last Admin: 09/12/18 21:13 Dose: 50 mg - Labs Labs: 09/11/18 07:26 09/11/18 07:26 PT 14.9 SECONDS (9.7-12.2) H 08/28/18 05:46 INR 1.4 08/28/18 05:46 APTT 26 SECONDS (21-34) 08/28/18 05:46 - Additional Findings Additional findings: - Constitutional Appears: No Acute Distress - Head Exam Head Exam: ATRAUMATIC, NORMAL INSPECTION - Eye Exam Eye Exam: EOMI, Normal appearance, PERRL - ENT Exam ENT Exam: Mucous Membranes Moist - Neck Exam Neck Exam: Normal Inspection - Respiratory Exam Respiratory Exam: Clear to Ausculation Bilateral, NORMAL BREATHING PATTERN. absent: Accessory Muscle Use, Respiratory Distress - Cardiovascular Exam Cardiovascular Exam: REGULAR RHYTHM, +S1, +S2 - GI/Abdominal Exam GI & Abdominal Exam: Soft. absent: Distended, Tenderness - Rectal Exam Rectal Exam: Deferred - Extremities Exam Extremities Exam: Pedal Edema (nonpitting edema of LLE). absent: Tenderness LLE knee high RITA stocking - Neurological Exam Neurological Exam: Alert, Awake, Oriented x3 Neuro motor strength exam: Left Upper Extremity: 0, Right Upper Extremity: 5, Left Lower Extremity: 0, Right Lower Extremity: 5 clonus L upper extremity 1 beat of catch noted - Psychiatric Exam Psychiatric exam: Flat Affect - Skin Skin Exam: Dry, Intact, Normal Color, Warm <Castro,Bienvenido J - Last Filed: 09/15/18 20:33> Objective - Vital Signs/Intake and Output Vital Signs (last 24 hours): Temp Pulse Resp BP Pulse Ox 98.2 F 96 H 20 89/51 L 94 L 09/15/18 16:00 09/15/18 16:00 09/15/18 16:00 09/15/18 16:00 09/15/18 16:00 Intake and Output: 09/15/18 09/16/18 18:59 06:59 Intake Total 600 Balance 600 - Medications Medications: Current Medications Aspirin (Ecotrin) 81 mg PO DAILY [facility] Last Admin: 09/15/18 09:12 Dose: 81 mg Bisacodyl (Dulcolax) 5 mg PO ONCE PRN PRN Reason: Constipation Last Admin: 09/15/18 18:12 Dose: 5 mg Bisacodyl (Dulcolax) 5 mg PO DAILY PRN PRN Reason: Constipation Clopidogrel Bisulfate (Plavix) 75 mg PO DAILY [facility] Last Admin: 09/15/18 09:11 Dose: 75 mg Folic Acid (Folic Acid) 1 mg PO DAILY [facility] Last Admin: 09/15/18 09:12 Dose: 1 mg Hydroxyzine HCl (Atarax) 25 mg PO Q6 PRN PRN Reason: Anxiety Lactobacillus Acidophilus (Bacid Acidophilus) 1 cap PO BID [facility] Last Admin: 09/15/18 18:14 Dose: 1 cap Lidocaine (Lidoderm) 1 ea TD DAILY [facility] Last Admin: 09/15/18 09:10 Dose: 1 ea Lidocaine (Lidoderm) 1 ea TD DAILY [facility] Last Admin: 09/15/18 09:11 Dose: 1 ea Metoprolol Tartrate (Lopressor) 12.5 mg PO BID [facility] Last Admin: 09/15/18 18:14 Dose: Not Given Multivitamins (Hexavitamin) 1 tab PO DAILY [facility] Last Admin: 09/15/18 09:12 Dose: 1 tab Rosuvastatin Calcium (Crestor) 20 mg PO HS [facility] Last Admin: 09/14/18 21:57 Dose: 20 mg Senna/Docusate Sodium (Senokot S 50 Mg-8.6 Mg) 1 tab PO BID [facility] Last Admin: 09/15/18 18:12 Dose: 1 tab Sertraline HCl (Zoloft) 50 mg PO DAILY [facility] Last Admin: 09/15/18 09:12 Dose: 50 mg Thiamine HCl (Vitamin B1 Tab) 100 mg PO DAILY [facility] Last Admin: 09/15/18 09:12 Dose: 100 mg Trazodone HCl (Desyrel) 50 mg PO HS [facility] Last Admin: 09/14/18 21:57 Dose: 50 mg - Labs Labs: 09/13/18 08:25 09/13/18 08:25 PT 14.9 SECONDS (9.7-12.2) H 08/28/18 05:46 INR 1.4 08/28/18 05:46 APTT 26 SECONDS (21-34) 08/28/18 05:46 Attending/Attestation - Attestation I have personally seen and examined this patient.: Yes I have fully participated in the care of the patient.: Yes I have reviewed all pertinent clinical information, including history, physical exam and plan: Yes Notes (Text): 09/15/18 20:33 This is a late entry. Care of this patient was gone over with resident Bienvenido Castro D.O.
[2018-09-13 08:45] LABS: BASO % 0.7 % (0.0-2.0); EOS # 0.3 K/uL (0.0-0.7); EOS % 5.6 % (0.0-4.0); HEMOGLOBIN 11.3 g/dL (12.0-18.0); LYMPH # 1.7 K/uL (1.0-4.3); LYMPH % 31.6 % (20.0-40.0); MEAN CELL VOLUME 86.4 fL (80.0-94.0); MEAN CORPUSCULAR HGB CONC 33.5 g/dL (33.0-37.0); MEAN PLATELET VOLUME 8.7 fL (7.2-11.7); MONO # 0.7 K/uL (0.0-0.8); MONO % 12.1 % (0.0-10.0); NEUT # 2.7 K/uL (1.8-7.0); RBC 3.89 Mil/uL (4.40-5.90); RED CELL DISTRIBUTION WIDTH 12.9 % (11.5-14.5); WHITE BLOOD COUNT 5.5 K/uL (4.8-10.8)
[2018-09-13 09:19] LABS: ALB/GLOB RATIO 0.9 (1.0-2.1); ALBUMIN 3.4 g/dL (3.5-5.0); ALT/SGPT 48 U/L (21-72); AST/SGOT 53 U/L (17-59); BLOOD UREA NITROGEN 7 mg/dL (9-20); GFR NON-AFRICAN AMERICAN > 60
[2018-09-13] MEDS: Lidocaine 5% Patch TD SCH ×2 (10:07)
[2018-09-13] MEDS: Docusate-Senna 50 mg-8.6 mg Tab PO SCH ×2 (10:07→18:16)
[2018-09-13] MEDS: Multiple Vitamins Tab PO SCH (10:07)
[2018-09-13] MEDS: Pantoprazole 40 mg EC Tab PO SCH (10:08)
[2018-09-13] MEDS: Lactobacillus Acidophilus 500 MU Cap PO SCH ×2 (10:08→18:16)
[2018-09-14] MEDS: Pantoprazole 40 mg EC Tab PO SCH (09:35)
[2018-09-14] MEDS: Multiple Vitamins Tab PO SCH (09:35)
[2018-09-14] MEDS: Lidocaine 5% Patch TD SCH ×2 (09:36→09:45)
[2018-09-14] MEDS: Docusate-Senna 50 mg-8.6 mg Tab PO SCH ×2 (09:36→18:07)
[2018-09-14] MEDS: Lactobacillus Acidophilus 500 MU Cap PO SCH ×2 (09:37→18:07)
[2018-09-15] MEDS: Lidocaine 5% Patch TD SCH ×2 (09:10→09:11)
[2018-09-15] MEDS: Docusate-Senna 50 mg-8.6 mg Tab PO SCH ×2 (09:12→18:12)
[2018-09-15] MEDS: Multiple Vitamins Tab PO SCH (09:12)
[2018-09-15] MEDS: Lactobacillus Acidophilus 500 MU Cap PO SCH ×2 (09:18→18:14)
--- NOTE | 2018-09-15 17:53 | CP.PCM.PCO ---
Physician Communication Note - Physician Communication Note Physician Communication Note: Please see above
[2018-09-15] MEDS: Bisacodyl 5mg EC Tab PO PRN (18:12)
[2018-09-16] MEDS: Docusate-Senna 50 mg-8.6 mg Tab PO SCH ×2 (09:43→18:03)
[2018-09-16] MEDS: Multiple Vitamins Tab PO SCH (09:43)
[2018-09-16] MEDS: Lactobacillus Acidophilus 500 MU Cap PO SCH ×2 (09:43→17:51)
[2018-09-16] MEDS: Lidocaine 5% Patch TD SCH ×2 (09:43)
[2018-09-16] MEDS: Bisacodyl 5mg EC Tab PO PRN (09:47)
[2018-09-16 11:17] LABS: HEMOGLOBIN 11.1 g/dL (12.0-18.0); MEAN CELL VOLUME 87.7 fL (80.0-94.0); MEAN CORPUSCULAR HEMOGLOBIN 29.1 pg (27.0-31.0); MEAN CORPUSCULAR HGB CONC 33.2 g/dL (33.0-37.0); MEAN PLATELET VOLUME 8.4 fL (7.2-11.7); RBC 3.83 Mil/uL (4.40-5.90); RED CELL DISTRIBUTION WIDTH 13.2 % (11.5-14.5); WHITE BLOOD COUNT 6.3 K/uL (4.8-10.8)
[2018-09-16 11:33] LABS: ALB/GLOB RATIO 0.9 (1.0-2.1); ALBUMIN 3.6 g/dL (3.5-5.0); ALT/SGPT 54 U/L (21-72); AST/SGOT 59 U/L (17-59); BLOOD UREA NITROGEN 9 mg/dL (9-20); CALCIUM 8.8 mg/dl (8.6-10.4); GFR NON-AFRICAN AMERICAN > 60
--- NOTE | 2018-09-16 12:03 | CP.PCM.PN ---
Subjective - Date & Time of Evaluation Date of Evaluation: 09/16/18 Time of Evaluation: 12:01 - Subjective Subjective: PY-[address] Kimball Patient seen and examined at bedside. No acute events overnight. Patient has no acute complaints. Continues to c/o total L-sided paralysis. He is [id number] modified dysphagia diet. Pt worked with PT on 09/24- still requiring max assist for most activities, though was able to reposition himself in bed. Patient denies chest pain, dizziness, nausea, vomiting, no new muscle weakness or sensory changes. Objective - Vital Signs/Intake and Output Vital Signs (last 24 hours): Temp Pulse Resp BP Pulse Ox 97.8 F 80 18 86/52 L 97 09/16/18 11:38 09/16/18 11:38 09/16/18 07:00 09/16/18 11:38 09/16/18 07:00 Intake and Output: 09/16/18 09/16/18 06:59 18:59 Output Total 400 Balance -400 - Medications Medications: Current Medications Aspirin (Ecotrin) 81 mg PO DAILY [facility] Last Admin: 09/16/18 09:43 Dose: 81 mg Bisacodyl (Dulcolax) 5 mg PO ONCE PRN PRN Reason: Constipation Last Admin: 09/15/18 18:12 Dose: 5 mg Bisacodyl (Dulcolax) 5 mg PO DAILY PRN PRN Reason: Constipation Last Admin: 09/16/18 09:47 Dose: 5 mg Clopidogrel Bisulfate (Plavix) 75 mg PO DAILY [facility] Last Admin: 09/16/18 09:43 Dose: 75 mg Folic Acid (Folic Acid) 1 mg PO DAILY [facility] Last Admin: 09/16/18 09:43 Dose: 1 mg Hydroxyzine HCl (Atarax) 25 mg PO Q6 PRN PRN Reason: Anxiety Lactobacillus Acidophilus (Bacid Acidophilus) 1 cap PO BID [facility] Last Admin: 09/16/18 09:43 Dose: 1 cap Lidocaine (Lidoderm) 1 ea TD DAILY [facility] Last Admin: 09/16/18 09:43 Dose: 1 ea Lidocaine (Lidoderm) 1 ea TD DAILY [facility] Last Admin: 09/16/18 09:43 Dose: 1 ea Metoprolol Tartrate (Lopressor) 12.5 mg PO BID [facility] Last Admin: 09/16/18 09:43 Dose: 12.5 mg Multivitamins (Hexavitamin) 1 tab PO DAILY [facility] Last Admin: 09/16/18 09:43 Dose: 1 tab Rosuvastatin Calcium (Crestor) 20 mg PO HS [facility] Last Admin: 09/15/18 21:47 Dose: 20 mg Senna/Docusate Sodium (Senokot S 50 Mg-8.6 Mg) 1 tab PO BID [facility] Last Admin: 09/16/18 09:43 Dose: 1 tab Sertraline HCl (Zoloft) 50 mg PO DAILY [facility] Last Admin: 09/16/18 09:43 Dose: 50 mg Thiamine HCl (Vitamin B1 Tab) 100 mg PO DAILY [facility] Last Admin: 09/16/18 09:43 Dose: 100 mg Trazodone HCl (Desyrel) 50 mg PO HS [facility] Last Admin: 09/15/18 21:47 Dose: 50 mg - Labs Labs: 09/16/18 11:10 09/16/18 11:10 PT 14.9 SECONDS (9.7-12.2) H 08/28/18 05:46 INR 1.4 08/28/18 05:46 APTT 26 SECONDS (21-34) 08/28/18 05:46 - Head Exam Head Exam: ATRAUMATIC, NORMAL INSPECTION - Eye Exam Eye Exam: EOMI - ENT Exam ENT Exam: Mucous Membranes Moist - Respiratory Exam Respiratory Exam: Clear to Ausculation Bilateral, NORMAL BREATHING PATTERN. absent: Rhonchi, Wheezes - Cardiovascular Exam Cardiovascular Exam: +S1, +S2 - GI/Abdominal Exam GI & Abdominal Exam: Soft, Normal Bowel Sounds. absent: Tenderness - Extremities Exam Extremities Exam: absent: Pedal Edema, Tenderness - Neurological Exam Neurological Exam: Alert, Awake, Oriented x3 Neuro motor strength exam: Left Upper Extremity: 0, Right Upper Extremity: 5, Left Lower Extremity: 0, Right Lower Extremity: 5 - Psychiatric Exam Psychiatric exam: Normal Affect, Normal Mood - Skin Skin Exam: Dry, Intact, Normal Color, Warm Assessment and Plan - Assessment and Plan (Free Text) Assessment: Patient is a 52 yo male with a PMH of gastric ulcers who presented with L-side paralysis. Found to have ischemic stroke then hemorrhagic conversion- suspect embolic stroke 2/2 Afib 2/2 alcohol. MRI on 08/14 showed large R MCA infarct and basal ganglia and posterior frontoparietal hemorrhagic with 11 mm midline shift. Repeat CT continued to show worsening bleed; however most recent shows improvement of midline shift/mass effect. Patient continued to have tachycardia and fevers- discovered PE and LLE DVT. IVC filter placed 08/20. LLE continued to be swollen and RITA stocking was placed. 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 Working with PT; minimal improvement. Neurology rec starting ASA 81 and Plavix 75- signed off case. Patient downgraded to med/surg. Psych consult to evaluate for depression; started patient on meds 09/11. Obtain labs only MWF. Pending contact with patient's in DR for potential placement. Patient's son in [place] does not want to be involved, as per MAURY. Continue inpatient management and rehabilitation/ Plan: 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- minimal improvement with PT - PT/OT- recommend acute rehab - L shoulder XR: no subluxation/dislocation, no fracture - L knee immobilizer during PT/standing ONLY - PT taught exercises to patient to continue engaging passive ROM to prevent adhesive capsulitis - Patient hesitant during PT sessions, no independent movement of L side - SEISMIC OBSERVER consulted- advanced bite size diet/thin liquids - Reconsulted 09/10- continue with same diet as patient cannot cut food without use of left hand, patient would like to maintain current diet order - SW/CM consulted- waiting to hear back from patient's in DR - Patient's insurance does not cover rehab. 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 Slight dilatation of the left lateral ventricle suggesting mild early compressive effects at the level of the left foramen of Garza. No definitive evidence of acute intracranial hemorrhage. - Most recent CT head 08/29: Continued evolution hemorrhagic conversion changes of a relatively large right MCA territory branch infarct. Improved mass effect and midline shift - MRI brain 08/15: There is a relatively large subacute right MCA territory infarct with areas of hemorrhage in the basal ganglia and right posterior frontoparietal watershed zone as described. Persistent mass effect with c ompression of the right lateral ventricle and [id number] midline shift with septum pellucidum located approximately 11 mm to left of midline. Mild on dilatation left lateral ventricle due to mild compressive effects at the level of the left foramen of Garza. - Aspiration precautions - Seizure precautions - Lipid panel: choles 271, LDL 184, HDL 59, TG 100 - EKGs: sinus tachycardia - No Afib seen on telemetry - Echo x2: EF 60-65%, no abnormalities, no vegetations - Echo with bubble study: no thrombus, no PFO - No therapeutic anticoagulation - ASA 81 mg PO daily - Plavix 75 mg PO daily - Crestor 20 mg PO QHS - Neurosurgery consulted (Naomy)- no intervention - Neurology consulted (Shavonne/Dain)- hold anticoag but start ASA 81 and Plavix 75 - Cardiology consulted (Neal)- no need for DAMIEN, okay to start ASA 81 and Plavix 75 Pulmonary embolism and LLE Deep vein thrombosis - Leukocytosis resolved - D-dimer elevated (3912) - CTA chest 08/19: extensive pulmonary thromboembolism - LE Dopplers 08/19: extensive left lower extremity DVT - LLE edema with recent increase 09/09 - NO knee immobilizer while in bed - RITA stocking on LLE - No SCD on LLE - Hold anticoagulation due to hemorrhagic stroke - IVC filter 08/20 - Hypercoagulable work-up negative - Hem/onc consulted (Mariola) - Vascular surgery consulted (Shyla)- IVC filter, RITA stocking Constipation, acute- BM yesterday 09/10 after Dulcolax - Senakot PO BID - Dulcolax PO PRN Poor PO intake - Treating constipation (see above) - Help Desk Administrator referral- f/u recs Depression, worsening - Zoloft 50 mg PO daily - Ambien 5 mg PO QHS PRN - Atarax 25 mg PO Q6H PRN - Psychiatry consulted (Sonya/Max) Sinus tachycardia, fevers, improving- suspect 2/2 PE/DVT +/- central fevers 2/2 CVA - Most recent fever 100.6 on 08/22 8 AM - No increases to rate control meds as to not lower BP (already low normal) - Procal low (0.12) - EKG: sinus tachycardia (130s)- HR now 80-100s sinus - Blood Cx no growth - Repeat no growth - Echo x2: EF 60-65%, no abnormalities, no vegetations - Recent hypotensive (90s/50-60s), stable- suspect due to poor PO intake, tachycardia compensation - Decrease Lopressor to 12.5 mg PO BID Low back and leg pain, stable - CPK wnl - Lidoderm patch - Avoid Tylenol due to LFTs, avoid NSAIDs due to hemorrhagic stroke Alcohol use disorder, chronic - MV daily - Thiamine 100 mg PO daily - Folate 1 mg PO daily - Cessation counseling [place] use disorder, chronic - UDS positive - Cessation counseling Syncope, resolved- likely vasovagal - BODY WELDER 09/07- syncope <1 minute while on commode, patient back to baseline without intervention - Reinforce fall precautions - Patient needs assistance with bedside commode Transaminitis, resolved - Continue to monitor CMP - Abd u/s: no significant or acute findings - Hepatitis panel negative - HIV pending (received 08/29) Rash, resolved- consistent with urticaria - Discontinue topical Benadryl PRN - Discontinue topical cortizone 0.5% PRN Pneumonia, resolved- HCAP vs aspiration - Aspiration precautions - CXR: Mild venous congestion. Patchy increased markings at the left lung base with small left pleural effusion. Small nodular density projects over the left lung apex. Cardiomegaly. - Repeat CXR 08/20: no active disease - Lactobacillus acidophilus BID Urinary tract infection, resolved - Urine Cx: Enterococcus faecalis - Repeat no growth - Finished 5 day course of Cipro 400 mg IV Q12H - Repeat UA, Cx negative Scrotal pain, resolved - Testicular u/s: b/l scrotal thickening Ppx: VTE: contraindicated, only SCD to RLE, RITA stocking to LLE GI: PTX 40 mg PO daily Code status: full code Case was discussed with attending, Dr. Jigar Burleson, PGY-1
[2018-09-17] MEDS: Multiple Vitamins Tab PO SCH (09:30)
[2018-09-17] MEDS: Docusate-Senna 50 mg-8.6 mg Tab PO SCH ×2 (09:30→17:30)
[2018-09-17] MEDS: Bisacodyl 5mg EC Tab PO PRN (09:31)
[2018-09-17] MEDS: Lidocaine 5% Patch TD SCH ×2 (09:32)
[2018-09-17] MEDS: Lactobacillus Acidophilus 500 MU Cap PO SCH ×2 (11:00→17:30)
--- NOTE | 2018-09-18 06:51 | CP.PCM.PN ---
<Olga Lidia Garland - Last Filed: 09/18/18 15:40> Subjective - Date & Time of Evaluation Date of Evaluation: 09/18/18 Time of Evaluation: 06:50 - Subjective Subjective: PGY-1 Olga Lidia Garland D.O. Medicine progress note for Dr. Norton's service: Patient was seen and examined this morning. He states he is feeling better. He is now has some active movement of L arm and L leg. Still unable to support his weight without max assistance. Patient also complaining of some straining when initiating BMs. He continues to drink "green juice." Denies CANO, chest pain, SOB, N/V. Objective - Vital Signs/Intake and Output Vital Signs (last 24 hours): Temp Pulse Resp BP Pulse Ox 98.2 F 73 20 96/60 L 96 09/17/18 23:50 09/17/18 23:50 09/17/18 23:50 09/17/18 23:50 09/17/18 23:50 Intake and Output: 09/17/18 09/18/18 18:59 06:59 Intake Total 350 Output Total 300 400 Balance 50 -400 - Medications Medications: Current Medications Aspirin (Ecotrin) 81 mg PO DAILY [facility] Last Admin: 09/17/18 09:30 Dose: 81 mg Bisacodyl (Dulcolax) 5 mg PO ONCE PRN PRN Reason: Constipation Last Admin: 09/15/18 18:12 Dose: 5 mg Bisacodyl (Dulcolax) 5 mg PO DAILY PRN PRN Reason: Constipation Last Admin: 09/17/18 09:31 Dose: 5 mg Clopidogrel Bisulfate (Plavix) 75 mg PO DAILY [facility] Last Admin: 09/17/18 09:30 Dose: 75 mg Folic Acid (Folic Acid) 1 mg PO DAILY [facility] Last Admin: 09/17/18 09:31 Dose: 1 mg Hydroxyzine HCl (Atarax) 25 mg PO Q6 PRN PRN Reason: Anxiety Lactobacillus Acidophilus (Bacid Acidophilus) 1 cap PO BID [facility] Last Admin: 09/17/18 17:30 Dose: 1 cap Lidocaine (Lidoderm) 1 ea TD DAILY [facility] Last Admin: 09/17/18 09:32 Dose: 1 ea Metoprolol Tartrate (Lopressor) 12.5 mg PO BID [facility] Last Admin: 09/17/18 17:33 Dose: Not Given Multivitamins (Hexavitamin) 1 tab PO DAILY [facility] Last Admin: 09/17/18 09:30 Dose: 1 tab Rosuvastatin Calcium (Crestor) 20 mg PO HS [facility] Last Admin: 09/17/18 21:32 Dose: 20 mg Senna/Docusate Sodium (Senokot S 50 Mg-8.6 Mg) 1 tab PO BID [facility] Last Admin: 09/17/18 17:30 Dose: 1 tab Sertraline HCl (Zoloft) 50 mg PO DAILY [facility] Last Admin: 09/17/18 09:30 Dose: 50 mg Thiamine HCl (Vitamin B1 Tab) 100 mg PO DAILY [facility] Last Admin: 09/17/18 09:31 Dose: 100 mg Trazodone HCl (Desyrel) 50 mg PO HS [facility] Last Admin: 09/17/18 21:32 Dose: 50 mg - Labs Labs: 09/16/18 11:10 09/16/18 11:10 PT 14.9 SECONDS (9.7-12.2) H 08/28/18 05:46 INR 1.4 08/28/18 05:46 APTT 26 SECONDS (21-34) 08/28/18 05:46 - Additional Findings Additional findings: - Constitutional Appears: No Acute Distress - Head Exam Head Exam: ATRAUMATIC, NORMAL INSPECTION - Eye Exam Eye Exam: EOMI, Normal appearance, PERRL - ENT Exam ENT Exam: Mucous Membranes Moist - Neck Exam Neck Exam: Normal Inspection - Respiratory Exam Respiratory Exam: Clear to Ausculation Bilateral, NORMAL BREATHING PATTERN. absent: Accessory Muscle Use, Respiratory Distress - Cardiovascular Exam Cardiovascular Exam: REGULAR RHYTHM, +S1, +S2 - GI/Abdominal Exam GI & Abdominal Exam: Soft. absent: Distended, Tenderness - Rectal Exam Rectal Exam: Deferred - Extremities Exam Extremities Exam: Pedal Edema (nonpitting edema of LLE). absent: Tenderness LLE RITA stocking - Neurological Exam Neurological Exam: Alert, Awake, Oriented x3 Neuro motor strength exam: Left Upper Extremity: 0, Right Upper Extremity: 5, Left Lower Extremity: 0, Right Lower Extremity: 5 - Psychiatric Exam Psychiatric exam: Flat Affect - Skin Skin Exam: Dry, Intact, Normal Color, Warm Assessment and Plan - Assessment and Plan (Free Text) Assessment: Patient is a 52 yo male with a PMH of gastric ulcers who presented with L-side paralysis. Found to have ischemic stroke then hemorrhagic conversion- suspect embolic stroke 2/2 Afib 2/2 alcohol. MRI on 08/14 showed large R MCA infarct and basal ganglia and posterior frontoparietal hemorrhagic with 11 mm midline shift. Repeat CT continued to show worsening bleed; however most recent shows improvement of midline shift/mass effect. Patient continued to have tachycardia and fevers- discovered PE and LLE DVT. IVC filter placed 08/20. LLE continued to be swollen and RITA stocking was placed. 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 Working with PT; minimal improvement. Neurology rec starting ASA 81 and Plavix 75- signed off case. Patient downgraded to med/surg. Psych consult to evaluate for depression; started patient on meds 09/11. Obtain labs only MWF. Pending contact with patient's in DR for potential placement. Patient's son in [place] does not want to be involved, as per CM/SW. Plan: 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- minimal improvement with PT - Aggressive, daily PT/OT- recommend acute rehab - L shoulder XR: no subluxation/dislocation, no fracture - L knee immobilizer during PT/standing ONLY - PT taught exercises to patient to continue engaging passive ROM to prevent adhesive capsulitis - [employer] consulted- advanced bite size diet/thin liquids - Reconsulted 09/10- continue with same diet as patient cannot cut food without use of left hand, patient would like to maintain current diet order - SW/CM consulted- waiting to hear back from patient's in [place] (letter sent early Aug 2018) - Patient's insurance does not cover rehab. Patient applying for [facility] care for inpatient stay, continuing inpatient PT/OT - Turn and reposition Q2H - Daily skin checks Depression - Zoloft 50 mg PO daily - Trazodone 50 mg PO QHS - Atarax 25 mg PO Q6H PRN- not requiring - Psychiatry consulted (Sonya/Max) Constipation, acute - Colace 100 mg PO TID - Miralax PRN - Prune juice Hemorrhagic conversion of R MCA ischemic CVA- suspect embolic 2/2 Afib 2/2 alcohol use - Repeated CTs of head continued to show evolution/increase of bleed - Initial CT head 08/10: There is a large on MCA branch territory infarct involving the right basal ganglia and right posterior frontoparietal region extending to the vertex with mass effect with overlying sulcal effacement, compression of the right lateral ventricle and shift of the septum pellucidum from right to left by approximately 4.9 mm. Slight dilatation of the left lateral ventricle suggesting mild early compressive effects at the level of the left foramen of Garza. No definitive evidence of acute intracranial hemorrhage. - Most recent CT head 08/29: Continued evolution hemorrhagic conversion changes of a relatively large right MCA territory branch infarct. Improved mass effect and midline shift - MRI brain 08/15: There is a relatively large subacute right MCA territory infarct with areas of hemorrhage in the basal ganglia and right posterior frontoparietal watershed zone as described. Persistent mass effect with compression of the right lateral ventricle and [id number] midline shift with septum pellucidum located approximately 11 mm to left of midline. Mild on dilatation left lateral ventricle due to mild compressive effects at the level of the left foramen of Garza. - Aspiration precautions - Seizure precautions - Lipid panel: choles 271, LDL 184, HDL 59, TG 100 - EKGs: sinus tachycardia - No Afib seen on telemetry - Echo x2: EF 60-65%, no abnormalities, no vegetations - Echo with bubble study: no thrombus, no PFO - No therapeutic anticoagulation - ASA 81 mg PO daily - Plavix 75 mg PO daily - Crestor 20 mg PO QHS - Neurosurgery consulted (Naomy)- no intervention - Neurology consulted (Shavonne/Dain)- hold anticoag but start ASA 81 and Plavix 75, signed off - Cardiology consulted (Neal)- no need for DAMIEN, okay to start ASA 81 and Plavix 75 Pulmonary embolism and LLE Deep vein thrombosis - Leukocytosis resolved - D-dimer elevated (3912) - CTA chest 08/19: extensive pulmonary thromboembolism - LE Dopplers 08/19: extensive left lower extremity DVT - LLE edema with recent increase 09/09 - NO knee immobilizer while in bed - RITA stocking on LLE - No SCD on LLE - Hold therapeutic anticoagulation due to hemorrhagic stroke - IVC filter 08/20 - Hypercoagulable work-up negative - Hem/onc consulted (Mariola) - Vascular surgery consulted (Shyla)- IVC filter, RITA stocking Poor PO intake, improving - Treating constipation (see above) - [employer] referral- f/u recs Sinus tachycardia, fevers, improving- suspect 2/2 PE/DVT +/- central fevers 2/2 CVA - Most recent fever 100.6 on 08/22 8 AM - No increases to rate control meds as to not lower BP (already low normal) - Procal low (0.12) - EKG: sinus tachycardia (130s)- HR now mostly 80s, occasionally 90-100s sinus - Blood Cx no growth - Repeat no growth - Echo x2: EF 60-65%, no abnormalities, no vegetations - Recent low-normal hypotensive (90-100s/60s), stable- suspect due to poor PO intake, tachycardia compensation - Lopressor 12.5 mg PO BID Low back and leg pain, stable - CPK wnl - Lidoderm patch - Avoid Tylenol due to LFTs, avoid NSAIDs due to hemorrhagic stroke Alcohol use disorder, chronic - MV daily - Thiamine 100 mg PO daily - Folate 1 mg PO daily - Cessation counseling [place] use disorder, chronic - UDS positive - Cessation counseling Syncope, resolved- likely vasovagal - MANAGER ENGLISH 09/07- syncope <1 minute while on commode, patient back to baseline without intervention - Reinforce fall precautions - Patient needs assistance with bedside commode Transaminitis, resolved - Continue to monitor CMP - Abd u/s: no significant or acute findings - Hepatitis panel negative - HIV pending (received 08/29) Rash, resolved- consistent with urticaria - Discontinue topical Benadryl PRN - Discontinue topical cortizone 0.5% PRN Pneumonia, resolved- HCAP vs aspiration - Aspiration precautions - CXR: Mild venous congestion. Patchy increased markings at the left lung base with small left pleural effusion. Small nodular density projects over the left lung apex. Cardiomegaly. - Repeat CXR 08/20: no active disease - Lactobacillus acidophilus BID Urinary tract infection, resolved - Urine Cx: Enterococcus faecalis - Repeat no growth - Finished 5 day course of Cipro 400 mg IV Q12H - Repeat UA, Cx negative Scrotal pain, resolved - Testicular u/s: b/l scrotal thickening Ppx: VTE: contraindicated, only SCD to RLE, RITA stocking to LLE GI: PTX 40 mg PO daily Code status: full code Case was discussed with attending, Dr. Norton. <Mariel Norton V - Last Filed: 09/18/18 21:11> Objective - Vital Signs/Intake and Output Vital Signs (last 24 hours): Temp Pulse Resp BP Pulse Ox 97.8 F 90 20 92/57 L 95 09/18/18 15:00 09/18/18 15:00 09/18/18 15:00 09/18/18 15:00 09/18/18 15:00 - Medications Medications: Current Medications Aspirin (Ecotrin) 81 mg PO DAILY [facility] Last Admin: 09/18/18 09:37 Dose: 81 mg Clopidogrel Bisulfate (Plavix) 75 mg PO DAILY [facility] Last Admin: 09/18/18 09:37 Dose: 75 mg Docusate Sodium (Colace) 100 mg PO TID [facility] Last Admin: 09/18/18 18:04 Dose: 100 mg Folic Acid (Folic Acid) 1 mg PO DAILY [facility] Last Admin: 09/18/18 09:37 Dose: 1 mg Hydroxyzine HCl (Atarax) 25 mg PO Q6 PRN PRN Reason: Anxiety Lactobacillus Acidophilus (Bacid Acidophilus) 1 cap PO BID [facility] Last Admin: 09/18/18 18:04 Dose: 1 cap Lidocaine (Lidoderm) 1 ea TD DAILY [facility] Last Admin: 09/18/18 09:37 Dose: 1 ea Metoprolol Tartrate (Lopressor) 12.5 mg PO BID [facility] Last Admin: 09/18/18 18:02 Dose: Not Given Multivitamins (Hexavitamin) 1 tab PO DAILY [facility] Last Admin: 09/18/18 09:37 Dose: 1 tab Rosuvastatin Calcium (Crestor) 20 mg PO HS [facility] Last Admin: 09/17/18 21:32 Dose: 20 mg Sertraline HCl (Zoloft) 50 mg PO DAILY [facility] Last Admin: 09/18/18 09:37 Dose: 50 mg Thiamine HCl (Vitamin B1 Tab) 100 mg PO DAILY [facility] Last Admin: 09/18/18 09:37 Dose: 100 mg Trazodone HCl (Desyrel) 50 mg PO HS [facility] Last Admin: 09/17/18 21:32 Dose: 50 mg - Labs Labs: 09/18/18 08:48 09/18/18 08:48 PT 14.9 SECONDS (9.7-12.2) H 08/28/18 05:46 INR 1.4 08/28/18 05:46 APTT 26 SECONDS (21-34) 08/28/18 05:46 Assessment and Plan (1) Arterial ischemic stroke, MCA (middle cerebral artery), right, acute Status: Acute (2) ETOH abuse Status: Chronic (3) Impaired glucose tolerance Status: Acute (4) Lipid disorder Status: Acute (5) Leukocytosis Status: Acute (6) DVT (deep venous thrombosis) Status: Acute (7) Pulmonary embolism Status: Acute (8) Prophylactic measure Status: Acute Attending/Attestation - Attestation I have personally seen and examined this patient.: Yes I have fully participated in the care of the patient.: Yes I have reviewed all pertinent clinical information, including history, physical exam and plan: Yes Notes (Text): Patient seen, examined, and case discussed with day-time resident. Patient continues to need assistance. patient require physical therapy and rehab given paralytic left upper and lower extremity secondary to ischemic stroke. Patient unable to receive full chemical anticoagulation secondary to hemorrhagic conversion of initial ischemic stroke. Patient is on aspirin, plavix, and statin therapy. Patient unable to go to acute rehab as recommended secondary to lack of benefits of his insurance. Patient's is in the and his son in [place] does not want to be involved in his care. Patient noted acute complaint was that he strains while going to the bathroom. I have started him on stool softeners and placed nursing communication for prune juice specificially for the patient. We will need to f/u with PT since last worked with the patient in .
[2018-09-18 08:59] LABS: BASO % 0.6 % (0.0-2.0); EOS # 0.3 K/uL (0.0-0.7); EOS % 4.3 % (0.0-4.0); HEMOGLOBIN 11.1 g/dL (12.0-18.0); LYMPH # 1.7 K/uL (1.0-4.3); LYMPH % 27.5 % (20.0-40.0); MEAN CELL VOLUME 87.8 fL (80.0-94.0); MEAN CORPUSCULAR HEMOGLOBIN 28.5 pg (27.0-31.0); MEAN CORPUSCULAR HGB CONC 32.4 g/dL (33.0-37.0); MEAN PLATELET VOLUME 8.1 fL (7.2-11.7); MONO # 0.8 K/uL (0.0-0.8); NEUT # 3.3 K/uL (1.8-7.0); NEUT % 54.6 % (50.0-75.0); NRBC % 0.1 % (0.0-2.0); RBC 3.88 Mil/uL (4.40-5.90); RED CELL DISTRIBUTION WIDTH 13.4 % (11.5-14.5); WHITE BLOOD COUNT 6.1 K/uL (4.8-10.8)
[2018-09-18 09:18] LABS: ALB/GLOB RATIO 0.9 (1.0-2.1); ALBUMIN 3.4 g/dL (3.5-5.0); ALT/SGPT 56 U/L (21-72); AST/SGOT 50 U/L (17-59); BLOOD UREA NITROGEN 9 mg/dL (9-20); GFR NON-AFRICAN AMERICAN > 60
[2018-09-18] MEDS: Docusate-Senna 50 mg-8.6 mg Tab PO SCH (09:37)
[2018-09-18] MEDS: Lidocaine 5% Patch TD SCH (09:37)
[2018-09-18] MEDS: Lactobacillus Acidophilus 500 MU Cap PO SCH ×2 (09:37→18:04)
[2018-09-18] MEDS: Multiple Vitamins Tab PO SCH (09:37)
[2018-09-18] MEDS: Bisacodyl 5mg EC Tab PO PRN (09:40)
[2018-09-19] MEDS: Multiple Vitamins Tab PO SCH (09:46)
[2018-09-19] MEDS: Lactobacillus Acidophilus 500 MU Cap PO SCH ×2 (09:46→17:53)
[2018-09-19] MEDS: Lidocaine 5% Patch TD SCH (09:46)
[2018-09-19] MEDS ORDERED: Bisacodyl 5mg EC Tab PO ONE (19:47)
[2018-09-19] MEDS ORDERED: Aluminum Hydroxide/Magnesium Hydroxide Susp (30 mL) PO ONE (19:52)
--- NOTE | 2018-09-20 06:55 | CP.PCM.PN ---
<Uche Vasquez - Last Filed: 09/20/18 17:07> Subjective - Date & Time of Evaluation Date of Evaluation: 09/20/18 Time of Evaluation: 06:55 - Subjective Subjective: PGY-[address] Norton service, Patient is seen and examined at bedside. Patient has no current complains and reports no acute events overnight. Patient states feeling weak in his left arm and left leg, which has been unchanged. Patient has been constipated for two days but now states he went to the bathroom this morning after one dose of dulcolax given last night . Patient states he is straining to pass stool. Patient continues to drink "green juice" by bedside. Patient has no other complaints. denies fever, chills, chest pain, abdominal pain, n/v/d, urinary symptoms, extremity pain. Objective - Vital Signs/Intake and Output Vital Signs (last 24 hours): Temp Pulse Resp BP Pulse Ox 97.7 F 84 20 98/61 L 96 09/19/18 23:45 09/19/18 23:45 09/19/18 23:45 09/19/18 23:45 09/19/18 23:45 - Medications Medications: Current Medications Aspirin (Ecotrin) 81 mg PO DAILY [facility] Last Admin: 09/19/18 09:46 Dose: 81 mg Clopidogrel Bisulfate (Plavix) 75 mg PO DAILY [facility] Last Admin: 09/19/18 09:46 Dose: 75 mg Docusate Sodium (Colace) 100 mg PO TID [facility] Last Admin: 09/19/18 17:53 Dose: 100 mg Folic Acid (Folic Acid) 1 mg PO DAILY [facility] Last Admin: 09/19/18 09:46 Dose: 1 mg Hydroxyzine HCl (Atarax) 25 mg PO Q6 PRN PRN Reason: Anxiety Lactobacillus Acidophilus (Bacid Acidophilus) 1 cap PO BID [facility] Last Admin: 09/19/18 17:53 Dose: 1 cap Lidocaine (Lidoderm) 1 ea TD DAILY [facility] Last Admin: 09/19/18 09:46 Dose: 1 ea Metoprolol Tartrate (Lopressor) 12.5 mg PO BID [facility] Last Admin: 09/19/18 17:56 Dose: Not Given Multivitamins (Hexavitamin) 1 tab PO DAILY [facility] Last Admin: 09/19/18 09:46 Dose: 1 tab Rosuvastatin Calcium (Crestor) 20 mg PO HS [facility] Last Admin: 09/19/18 21:37 Dose: 20 mg Sertraline HCl (Zoloft) 50 mg PO DAILY [facility] Last Admin: 09/19/18 09:46 Dose: 50 mg Thiamine HCl (Vitamin B1 Tab) 100 mg PO DAILY [facility] Last Admin: 09/19/18 09:46 Dose: 100 mg Trazodone HCl (Desyrel) 50 mg PO [facility] Last Admin: 09/19/18 21:37 Dose: 50 mg - Labs Labs: 09/18/18 08:48 09/18/18 08:48 PT 14.9 SECONDS (9.7-12.2) H 08/28/18 05:46 INR 1.4 08/28/18 05:46 APTT 26 SECONDS (21-34) 08/28/18 05:46 - Constitutional Appears: Non-toxic, No Acute Distress, Chronically Ill - Head Exam Head Exam: ATRAUMATIC, NORMAL INSPECTION, NORMOCEPHALIC - Eye Exam Eye Exam: EOMI, Normal appearance - ENT Exam ENT Exam: Mucous Membranes Moist, Normal Exam - Neck Exam Neck Exam: Full ROM, Normal Inspection - Respiratory Exam Respiratory Exam: Clear to Ausculation Bilateral, NORMAL BREATHING PATTERN. absent: Rales, Rhonchi, Wheezes, Respiratory Distress - Cardiovascular Exam Cardiovascular Exam: REGULAR RHYTHM, +S1, +S2 - GI/Abdominal Exam GI & Abdominal Exam: Soft, Normal Bowel Sounds. absent: Distended, Rigid, Tenderness - Extremities Exam Extremities Exam: Pedal Edema. absent: Calf Tenderness, Tenderness Additional comments: LLE RITA stocking LLE swelling, of chonic nature, peau d'orange skin in left thigh anterior skin area. no tenderness or masses noted. - Back Exam Back Exam: Full ROM, NORMAL INSPECTION - Neurological Exam Neurological Exam: Alert, Awake, Oriented x3 Neuro motor strength exam: Left Upper Extremity: 0, Right Upper Extremity: 5, Left Lower Extremity: 0, Right Lower Extremity: 5 - Psychiatric Exam Psychiatric exam: Flat Affect, Normal Mood - Skin Skin Exam: Dry, Intact, Normal Color, Warm Assessment and Plan - Assessment and Plan (Free Text) Assessment: Patient is a 52 yo male with a PMH of gastric ulcers who presented with L-side paralysis. Admitted for ischemic stroke then hemorrhagic conversion- suspect embolic stroke 11/02 Afib 11/02 alcohol, found to have PE and LLE DVT on hospital course, IVC filter placed 08/20, LLE with stocking. 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 PT continues daily assessment and therapy on patient, awaiting SW update on evaluation for medicaid application/process. Plan: 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- minimal improvement with PT - Aggressive, daily PT/OT- recommend acute rehab - patient tolerating PT tx well without complication, as per PT note - L shoulder XR: no subluxation/dislocation, no fracture - L knee immobilizer during PT/standing ONLY - PT taught exercises to patient to continue engaging passive ROM to prevent adhesive capsulitis - CREOSOTING ENGINEER consulted- advanced bite size diet/thin liquids - Reconsulted 09/10- continue with same diet as patient cannot cut food without use of left hand, patient would like to maintain current diet order - SW/CM consulted- waiting to hear back from patient's in DR (letter sent early Aug 2018) - Patient's insurance does not cover rehab. Patient applying for [facility] for inpatient stay, continuing inpatient PT/OT. SW initiating process for evaluation of patient to apply for medicaid. 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 Slight dilatation of the left lateral ventricle suggesting mild early compressive effects at the level of the left foramen of Garza. No definitive evidence of acute intracranial hem orrhage. - Most recent CT head 08/29: Continued evolution hemorrhagic conversion changes of a relatively large right MCA territory branch infarct. Improved mass effect and midline shift - MRI brain 08/15: There is a relatively large subacute right MCA territory infarct with areas of hemorrhage in the basal ganglia and right posterior frontoparietal watershed zone as described. Persistent mass effect with compression of the right lateral ventricle and [id number] midline shift with septum pellucidum located approximately 11 mm to left of midline. Mild on dilatation left lateral ventricle due to mild compressive effects at the level of the left foramen of Garza. - Aspiration precautions - Seizure precautions - Lipid panel: choles 271, LDL 184, HDL 59, TG 100 - EKGs: sinus tachycardia - No Afib seen on telemetry - Echo x2: EF 60-65%, no abnormalities, no vegetations - Echo with bubble study: no thrombus, no PFO - No therapeutic anticoagulation - ASA 81 mg PO daily - Plavix 75 mg PO daily - Crestor 20 mg PO QHS - Neurosurgery consulted (Naomy)- no intervention - Neurology consulted (Shavonne/Dain)- hold anticoag but start ASA 81 and Plavix 75, signed off - Cardiology consulted (Neal)- no need for DAMIEN, okay to start ASA 81 and Plavix 75 Pulmonary embolism and LLE Deep vein thrombosis - Leukocytosis resolved - D-dimer elevated (3912) - CTA chest 08/19: extensive pulmonary thromboembolism - LE Dopplers 08/19: extensive left lower extremity DVT - LLE edema with recent increase 09/09 - NO knee immobilizer while in bed - RITA stocking on LLE - No SCD on LLE - Hold therapeutic anticoagulation due to hemorrhagic stroke - IVC filter 08/20 - Hypercoagulable work-up negative - Hem/onc consulted (Mariola) - Vascular surgery consulted (Shyla)- IVC filter, RITA stocking Poor PO intake, improving - continue management of constipation (see above) - Director [employer] referral- f/u recs Sinus tachycardia, fevers, improving- suspect 2/2 PE/DVT +/- central fevers 2/2 CVA - Most recent fever 100.6 on 08/22 8 AM - No increases to rate control meds as to not lower BP (already low normal) - Procal low (0.12) - EKG: sinus tachycardia (130s)- HR now mostly 80s, occasionally 90-100s sinus - Blood Cx no growth - Repeat no growth - Echo x2: EF 60-65%, no abnormalities, no vegetations - Recent low-normal hypotensive (90-100s/60s), stable- suspect due to poor PO intake, tachycardia compensation - Lopressor 12.5 mg PO BID Low back and leg pain, stable - CPK wnl - Lidoderm patch - Avoid Tylenol due to LFTs, avoid NSAIDs due to hemorrhagic stroke Alcohol use disorder, chronic - MV daily - Thiamine 100 mg PO daily - Folate 1 mg PO daily - Cessation counseling [place] use disorder, chronic - UDS positive - Cessation counseling Syncope, resolved- likely vasovagal - [employer]ATOR [employer] 09/07- syncope <1 minute while on commode, patient back to baseline without intervention - Reinforce fall precautions - Patient needs assistance with bedside commode Transaminitis, resolved - Continue to monitor CMP - Abd u/s: no significant or acute findings - Hepatitis panel negative - HIV pending (received 08/29) Rash, resolved- consistent with urticaria - Discontinue topical Benadryl PRN - Discontinue topical cortizone 0.5% PRN Pneumonia, resolved- HCAP vs aspiration - Aspiration precautions - CXR: Mild venous congestion. Patchy increased markings at the left lung base with small left pleural effusion. Small nodular density projects over the left lung apex. Cardiomegaly. - Repeat CXR 08/20: no active disease - Lactobacillus acidophilus BID Urinary tract infection, resolved - Urine Cx: Enterococcus faecalis - Repeat no growth - Finished 5 day course of Cipro 400 mg IV Q12H - Repeat UA, Cx negative Scrotal pain, resolved - Testicular u/s: b/l scrotal thickening Ppx: VTE: contraindicated, only SCD to RLE, RITA stocking to LLE dysphagia/modified consistent diet supplements diet Code status: full code Case was discussed with attending, Dr. Norton. <Mariel Norton V - Last Filed: 09/22/18 08:50> Objective - Vital Signs/Intake and Output Vital Signs (last 24 hours): Temp Pulse Resp BP Pulse Ox 98.2 F 86 20 100/65 95 09/21/18 23:55 09/21/18 23:55 09/21/18 23:55 09/21/18 23:55 09/21/18 23:55 Intake and Output: 09/22/18 09/22/18 06:59 18:59 Intake Total 120 Output Total 500 Balance -380 - Medications Medications: Current Medications Aspirin (Ecotrin) 81 mg PO DAILY [facility] Last Admin: 09/21/18 09:44 Dose: 81 mg Clopidogrel Bisulfate (Plavix) 75 mg PO DAILY [facility] Last Admin: 09/21/18 09:44 Dose: 75 mg Docusate Sodium (Colace) 100 mg PO TID [facility] Last Admin: 09/21/18 17:31 Dose: 100 mg Folic Acid (Folic Acid) 1 mg PO DAILY [facility] Last Admin: 09/21/18 09:44 Dose: 1 mg Hydroxyzine HCl (Atarax) 25 mg PO Q6 PRN PRN Reason: Anxiety Lactobacillus Acidophilus (Bacid Acidophilus) 1 cap PO BID [facility] Last Admin: 09/21/18 17:31 Dose: 1 cap Lidocaine (Lidoderm) 1 ea TD DAILY [facility] Last Admin: 09/21/18 09:45 Dose: 1 ea Metoprolol Tartrate (Lopressor) 12.5 mg PO BID [facility] Last Admin: 09/21/18 17:31 Dose: Not Given Multivitamins (Hexavitamin) 1 tab PO DAILY [facility] Last Admin: 09/21/18 09:44 Dose: 1 tab Rosuvastatin Calcium (Crestor) 20 mg PO HS [facility] Last Admin: 09/21/18 22:34 Dose: 20 mg Sertraline HCl (Zoloft) 50 mg PO DAILY [facility] Last Admin: 09/21/18 09:45 Dose: 50 mg Thiamine HCl (Vitamin B1 Tab) 100 mg PO DAILY [facility] Last Admin: 09/21/18 09:45 Dose: 100 mg Trazodone HCl (Desyrel) 50 mg PO HS [facility] Last Admin: 09/21/18 22:34 Dose: 50 mg - Labs Labs: 09/20/18 07:34 09/20/18 07:34 PT 14.9 SECONDS (9.7-12.2) H 08/28/18 05:46 INR 1.4 08/28/18 05:46 APTT 26 SECONDS (21-34) 08/28/18 05:46 Assessment and Plan (1) Arterial ischemic stroke, MCA (middle cerebral artery), right, acute Status: Acute (2) ETOH abuse Status: Chronic (3) Impaired glucose tolerance Status: Acute (4) Lipid disorder Status: Acute (5) Leukocytosis Status: Acute (6) DVT (deep venous thrombosis) Status: Acute (7) Pulmonary embolism Status: Acute (8) Prophylactic measure Status: Acute Attending/Attestation - Attestation I have personally seen and examined this patient.: Yes I have fully participated in the care of the patient.: Yes I have reviewed all pertinent clinical information, including history, physical exam and plan: Yes Notes (Text): This is late computer entry for 09/20/18. Patient seen, examined and case discussed with day-time resident. Patient reports constipation, reports he is straining. He is on stool softeners and laxative. We have encouraged him to use prune juice to help his constipati on. Patient requires rehab but does not have insurance benefits to cover rehab. Patient has sustained ischemic stroke which converted to hemorrhagic resulting left side weakness and paralytic leg. This factors have contributed to DVT and ultimately PE. Patient has IVC filter but we are unable to provide chemical anticoagulation for PE given the hemorrhagic conversion.
[2018-09-20 07:40] LABS: BASO # 0.1 K/uL (0.0-0.2); BASO % 0.7 % (0.0-2.0); EOS # 0.2 K/uL (0.0-0.7); EOS % 2.9 % (0.0-4.0); HEMOGLOBIN 11.9 g/dL (12.0-18.0); LYMPH # 2.3 K/uL (1.0-4.3); LYMPH % 29.8 % (20.0-40.0); MEAN CELL VOLUME 87.5 fL (80.0-94.0); MEAN CORPUSCULAR HEMOGLOBIN 28.6 pg (27.0-31.0); MEAN CORPUSCULAR HGB CONC 32.7 g/dL (33.0-37.0); MONO # 0.9 K/uL (0.0-0.8); MONO % 12.3 % (0.0-10.0); NEUT # 4.1 K/uL (1.8-7.0); NEUT % 54.3 % (50.0-75.0); RBC 4.16 Mil/uL (4.40-5.90); RED CELL DISTRIBUTION WIDTH 13.5 % (11.5-14.5); WHITE BLOOD COUNT 7.5 K/uL (4.8-10.8)
[2018-09-20 08:14] LABS: ALBUMIN 3.8 g/dL (3.5-5.0); ALT/SGPT 50 U/L (21-72); AST/SGOT 41 U/L (17-59); BLOOD UREA NITROGEN 8 mg/dL (9-20); CALCIUM 9.2 mg/dl (8.6-10.4); GFR NON-AFRICAN AMERICAN > 60
[2018-09-20] MEDS: Lidocaine 5% Patch TD SCH (09:57)
[2018-09-20] MEDS: Multiple Vitamins Tab PO SCH (09:58)
[2018-09-20] MEDS: Lactobacillus Acidophilus 500 MU Cap PO SCH ×2 (09:59→17:48)
[2018-09-21] MEDS: Lactobacillus Acidophilus 500 MU Cap PO SCH ×2 (09:44→17:31)
[2018-09-21] MEDS: Multiple Vitamins Tab PO SCH (09:44)
[2018-09-21] MEDS: Lidocaine 5% Patch TD SCH (09:45)
[2018-09-22] MEDS: Lactobacillus Acidophilus 500 MU Cap PO SCH ×2 (11:17→18:02)
[2018-09-22] MEDS: Multiple Vitamins Tab PO SCH (11:18)
[2018-09-22] MEDS: Lidocaine 5% Patch TD SCH (11:19)
--- NOTE | 2018-09-23 06:16 | CP.PCM.PN ---
<Uche Vasquez - Last Filed: 09/23/18 14:57> Subjective - Date & Time of Evaluation Date of Evaluation: 09/23/18 Time of Evaluation: 06:16 - Subjective Subjective: Progress note for Dr Norton Service Patient is seen and examined at bedside this am. No acute changes overnight as per nurse and patient. Patient has no current complaints. Having bowel movements 3 times a day, drinking prune juice. Patient is eating well. denies any fever, chills, chest pain, shortness of breath, abdominal pain, n/v/d/c, urinary complaints. Objective - Vital Signs/Intake and Output Vital Signs (last 24 hours): Temp Pulse Resp BP Pulse Ox 98.0 F 93 H 20 97/64 L 96 09/22/18 23:50 09/22/18 23:50 09/22/18 23:50 09/22/18 23:50 09/22/18 23:50 Intake and Output: 09/22/18 09/23/18 18:59 06:59 Intake Total 300 480 Output Total 500 500 Balance -200 -20 - Medications Medications: Current Medications Aspirin (Ecotrin) 81 mg PO DAILY [facility] Last Admin: 09/22/18 11:18 Dose: 81 mg Clopidogrel Bisulfate (Plavix) 75 mg PO DAILY [facility] Last Admin: 09/22/18 11:17 Dose: 75 mg Docusate Sodium (Colace) 100 mg PO TID [facility] Last Admin: 09/22/18 18:02 Dose: 100 mg Folic Acid (Folic Acid) 1 mg PO DAILY [facility] Last Admin: 09/22/18 11:18 Dose: 1 mg Hydroxyzine HCl (Atarax) 25 mg PO Q6 PRN PRN Reason: Anxiety Lactobacillus Acidophilus (Bacid Acidophilus) 1 cap PO BID [facility] Last Admin: 09/22/18 18:02 Dose: 1 cap Lidocaine (Lidoderm) 1 ea TD DAILY [facility] Last Admin: 09/22/18 11:19 Dose: 1 ea Metoprolol Tartrate (Lopressor) 12.5 mg PO BID [facility] Last Admin: 09/22/18 18:05 Dose: Not Given Multivitamins (Hexavitamin) 1 tab PO DAILY [facility] Last Admin: 09/22/18 11:18 Dose: 1 tab Rosuvastatin Calcium (Crestor) 20 mg PO HS [facility] Last Admin: 09/22/18 21:36 Dose: 20 mg Sertraline HCl (Zoloft) 50 mg PO DAILY [facility] Last Admin: 09/22/18 11:17 Dose: 50 mg Thiamine HCl (Vitamin B1 Tab) 100 mg PO DAILY [facility] Last Admin: 09/22/18 11:17 Dose: 100 mg Trazodone HCl (Desyrel) 50 mg PO HS [facility] Last Admin: 09/22/18 21:36 Dose: 50 mg - Labs Labs: 09/20/18 07:34 09/20/18 07:34 PT 14.9 SECONDS (9.7-12.2) H 08/28/18 05:46 INR 1.4 08/28/18 05:46 APTT 26 SECONDS (21-34) 08/28/18 05:46 - Constitutional Appears: Non-toxic, No Acute Distress - Head Exam Head Exam: ATRAUMATIC, NORMAL INSPECTION, NORMOCEPHALIC - Eye Exam Eye Exam: EOMI, Normal appearance - ENT Exam ENT Exam: Mucous Membranes Moist, Normal Exam - Neck Exam Neck Exam: Normal Inspection - Respiratory Exam Respiratory Exam: Clear to Ausculation Bilateral, NORMAL BREATHING PATTERN. absent: Accessory Muscle Use, Rales, Rhonchi, Wheezes, Respiratory Distress - Cardiovascular Exam Cardiovascular Exam: REGULAR RHYTHM, +S1, +S2. absent: Tachycardia, Murmur - GI/Abdominal Exam GI & Abdominal Exam: Soft, Normal Bowel Sounds. absent: Distended, Guarding, Tenderness, Rebound - Extremities Exam Extremities Exam: absent: Calf Tenderness, Tenderness Additional comments: LLE stocking in place mild swelling noticed on LLE, no swelling on RLE - Back Exam Back Exam: NORMAL INSPECTION - Neurological Exam Neurological Exam: Alert, Awake, CN II-XII Intact, Oriented x3 Neuro motor strength exam: Left Lower Extremity: 2/1, Right Lower Extremity: 5 - Psychiatric Exam Psychiatric exam: Normal Affect, Normal Mood - Skin Skin Exam: Dry, Intact, Normal Color, Warm Assessment and Plan - Assessment and Plan (Free Text) Assessment: Patient is a 52 yo male with a PMH of gastric ulcers who presented with L-side paralysis. Admitted for ischemic stroke then hemorrhagic conversion- suspect embolic stroke /2 Afib 2/2 alcohol, found to have PE and LLE DVT on hospital course, IVC filter placed 08/20, LLE with stocking. 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 PT continues daily assessment and therapy on patient, awaiting SW update on evaluation for disability benefits/application Plan: 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- minimal improvement with PT - Aggressive, daily PT/OT- recommend acute rehab - continue to follow up with PT - L shoulder XR: no subluxation/dislocation, no fracture - L knee immobilizer during PT/standing ONLY - PT taught exercises to patient to continue engaging passive ROM to prevent adhesive capsulitis - will follow PT recs - PAPER REELER consulted- advanced bite size diet/thin liquids - Reconsulted 09/10- continue with same diet as patient cannot cut food without use of left hand, patient would like to maintain current diet order - SW/CM consulted- waiting to hear back from patient's in [place] (letter sent early Aug 2018) -working on application for disability, as patient was employed before - Turn and reposition Q2H - Daily skin checks Depression - Zoloft 50 mg PO daily - Trazodone 50 mg PO QHS - Atarax 25 mg PO Q6H PRN- not requiring - Psychiatry consulted (Sonya/Max) Constipation, currently resolved - BM three times yesterday - Colace 100 mg PO TID - Prune juice PRN - Prune juice bottle seen at bedside. 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 Slight dilatation of the left lateral ventricle suggesting mild early compressive effects at the level of the left foramen of Garza. No definitive evidence of acute intracranial hemorrhage. - Most recent CT head 08/29: Continued evolution hemorrhagic conversion changes of a relatively large right MCA territory branch infarct. Improved mass effect and midline shift - MRI brain 08/15: There is a relatively large subacute right MCA territory infarct with areas of hemorrhage in the basal ganglia and right posterior fronto parietal watershed zone as described. Persistent mass effect with compression of the right lateral ventricle and [id number] midline shift with septum pellucidum located approximately 11 mm to left of midline. Mild on dilatation left lateral ventricle due to mild compressive effects at the level of the left foramen of Garza. - Aspiration precautions - Seizure precautions - Lipid panel: choles 271, LDL 184, HDL 59, TG 100 - EKGs: sinus tachycardia - No Afib seen on telemetry - Echo x2: EF 60-65%, no abnormalities, no vegetations - Echo with bubble study: no thrombus, no PFO - No therapeutic anticoagulation - ASA 81 mg PO daily - Plavix 75 mg PO daily - Crestor 20 mg PO QHS - Neurosurgery consulted (Naomy)- no intervention - Neurology consulted (Shavonne/Dain)- hold anticoag but start ASA 81 and Plavix 75, signed off - Cardiology consulted (Neal)- no need for DAMIEN, okay to start ASA 81 and Plavix 75 Pulmonary embolism and LLE Deep vein thrombosis - Leukocytosis resolved - remains stable at 7.2 - D-dimer elevated (3912) - CTA chest 08/19: extensive pulmonary thromboembolism - LE Dopplers 08/19: extensive left lower extremity DVT - LLE edema with recent increase 09/09 - NO knee immobilizer while in bed - RITA stocking on LLE - No SCD on LLE - Hold therapeutic anticoagulation due to hemorrhagic stroke - IVC filter 08/20 - Hypercoagulable work-up negative - Hem/onc consulted (Mariola) - Vascular surgery consulted (Shyla)- IVC filter, RITA stocking Poor PO intake, improving - Bulk Tank Car Unloader referral- f/u recs - Continue monitoring Sinus tachycardia, fevers, improving- suspect 2/2 PE/DVT +/- central fevers 2/2 CVA - Most recent fever 100.6 on 08/22 8 AM - No increases to rate control meds as to not lower BP (already low normal) - Procal low (0.12) - EKG: sinus tachycardia (130s)- HR now mostly 80s, occasionally 90-100s sinus - Blood Cx no growth - Repeat no growth - Echo x2: EF 60-65%, no abnormalities, no vegetations - Recent low-normal hypotensive (90-100s/60s), stable- suspect due to poor PO intake, tachycardia compensation - Lopressor 12.5 mg PO BID Low back and leg pain, stable - CPK wnl - Lidoderm patch - Avoid Tylenol due to LFTs, avoid NSAIDs due to hemorrhagic stroke Alcohol use disorder, chronic - MV daily - Thiamine 100 mg PO daily - Folate 1 mg PO daily - Cessation counseling [place] use disorder, chronic - UDS positive - Cessation counseling Syncope, resolved- likely vasovagal - [employer] MACHINE OPERATOR 09/07- syncope <1 minute while on commode, patient back to baseline without intervention - Reinforce fall precautions - Patient needs assistance with bedside commode Transaminitis, resolved - Continue to monitor CMP - Abd u/s: no significant or acute findings - Hepatitis panel negative - HIV pending Rash, resolved- consistent with urticaria - Discontinue topical Benadryl PRN - Discontinue topical cortizone 0.5% PRN Pneumonia, resolved- HCAP vs aspiration - Aspiration precautions - CXR: Mild venous congestion. Patchy increased markings at the left lung base with small left pleural effusion. Small nodular density projects over the left lung apex. Cardiomegaly. - Repeat CXR 08/20: no active disease - Lactobacillus acidophilus BID Urinary tract infection, resolved - Urine Cx: Enterococcus faecalis - Repeat no growth - Finished 5 day course of Cipro 400 mg IV Q12H - Repeat UA, Cx negative Scrotal pain, resolved - Testicular u/s: b/l scrotal thickening Ppx: VTE: contraindicated, only SCD to RLE, RITA stocking to LLE dysphagia/modified consistent diet supplements diet Code status: full code Case was discussed with attending, Dr. Norton. Uche Vasquez, PGY-1 <Mariel Norton V - Last Filed: 10/13/18 16:45> Objective - Vital Signs/Intake and Output Vital Signs (last 24 hours): Temp Pulse Resp BP Pulse Ox 98.0 F 79 20 124/82 98 10/13/18 09:26 10/13/18 09:26 10/13/18 09:26 10/13/18 09:26 10/13/18 09:26 - Labs Labs: 10/11/18 07:55 10/11/18 07:56 PT 14.9 SECONDS (9.7-12.2) H 08/28/18 05:46 INR 1.4 08/28/18 05:46 APTT 26 SECONDS (21-34) 08/28/18 05:46 Assessment and Plan (1) Arterial ischemic stroke, MCA (middle cerebral artery), right, acute Status: Acute (2) ETOH abuse Status: Chronic (3) Impaired glucose tolerance Status: Acute (4) Lipid disorder Status: Acute (5) Leukocytosis Status: Acute (6) DVT (deep venous thrombosis) Status: Acute (7) Pulmonary embolism Status: Acute (8) Prophylactic measure Status: Acute Attending/Attestation - Attestation I have personally seen and examined this patient.: Yes I have fully participated in the care of the patient.: Yes I have reviewed all pertinent clinical information, including history, physical exam and plan: Yes
[2018-09-23 07:12] LABS: BASO # 0.1 K/uL (0.0-0.2); BASO % 0.7 % (0.0-2.0); EOS # 0.2 K/uL (0.0-0.7); EOS % 2.3 % (0.0-4.0); HEMOGLOBIN 11.1 g/dL (12.0-18.0); LYMPH # 1.8 K/uL (1.0-4.3); LYMPH % 25.4 % (20.0-40.0); MEAN CELL VOLUME 87.2 fL (80.0-94.0); MEAN CORPUSCULAR HEMOGLOBIN 28.8 pg (27.0-31.0); MEAN PLATELET VOLUME 7.8 fL (7.2-11.7); MONO # 0.9 K/uL (0.0-0.8); MONO % 12.5 % (0.0-10.0); NEUT # 4.3 K/uL (1.8-7.0); NEUT % 59.1 % (50.0-75.0); RBC 3.86 Mil/uL (4.40-5.90); RED CELL DISTRIBUTION WIDTH 13.4 % (11.5-14.5); WHITE BLOOD COUNT 7.2 K/uL (4.8-10.8)
[2018-09-23 07:49] LABS: ALBUMIN 3.4 g/dL (3.5-5.0); ALT/SGPT 34 U/L (21-72); AST/SGOT 39 U/L (17-59); BLOOD UREA NITROGEN 6 mg/dL (9-20); CALCIUM 8.9 mg/dl (8.6-10.4); GFR NON-AFRICAN AMERICAN > 60
[2018-09-23] MEDS: Multiple Vitamins Tab PO SCH (09:46)
[2018-09-23] MEDS: Lidocaine 5% Patch TD SCH (09:46)
[2018-09-23] MEDS: Lactobacillus Acidophilus 500 MU Cap PO SCH ×2 (09:47→17:27)
[2018-09-24] MEDS: Multiple Vitamins Tab PO SCH (09:44)
[2018-09-24] MEDS: Lactobacillus Acidophilus 500 MU Cap PO SCH ×2 (09:44→17:48)
[2018-09-24] MEDS: Lidocaine 5% Patch TD SCH (09:46)
[2018-09-25 07:35] LABS: BASO # 0.1 K/uL (0.0-0.2); BASO % 0.8 % (0.0-2.0); EOS # 0.2 K/uL (0.0-0.7); EOS % 2.9 % (0.0-4.0); HEMOGLOBIN 11.5 g/dL (12.0-18.0); LYMPH # 1.5 K/uL (1.0-4.3); LYMPH % 22.4 % (20.0-40.0); MEAN CELL VOLUME 87.1 fL (80.0-94.0); MEAN CORPUSCULAR HEMOGLOBIN 28.9 pg (27.0-31.0); MEAN CORPUSCULAR HGB CONC 33.2 g/dL (33.0-37.0); MEAN PLATELET VOLUME 8.5 fL (7.2-11.7); MONO # 0.7 K/uL (0.0-0.8); MONO % 10.8 % (0.0-10.0); NEUT # 4.2 K/uL (1.8-7.0); NEUT % 63.1 % (50.0-75.0); NRBC % 0.1 % (0.0-2.0); RBC 3.97 Mil/uL (4.40-5.90); RED CELL DISTRIBUTION WIDTH 13.4 % (11.5-14.5); WHITE BLOOD COUNT 6.7 K/uL (4.8-10.8)
[2018-09-25 08:08] LABS: ALB/GLOB RATIO 1.1 (1.0-2.1); ALBUMIN 3.7 g/dL (3.5-5.0); ALT/SGPT 33 U/L (21-72); AST/SGOT 38 U/L (17-59); BLOOD UREA NITROGEN 11 mg/dL (9-20); CALCIUM 9.2 mg/dl (8.6-10.4); GFR NON-AFRICAN AMERICAN > 60
[2018-09-25] MEDS: Multiple Vitamins Tab PO SCH (11:14)
[2018-09-25] MEDS: Lidocaine 5% Patch TD SCH (11:14)
[2018-09-25] MEDS: Lactobacillus Acidophilus 500 MU Cap PO SCH ×2 (11:14→18:09)
--- NOTE | 2018-09-25 16:42 | CP.PCM.PN ---
<Missy Grant Y - Last Filed: 09/25/18 16:40> Subjective - Date & Time of Evaluation Date of Evaluation: 09/25/18 Time of Evaluation: 11:30 - Subjective Subjective: PGY-1 Medicine Progress Note for Dr. Peter Castro Patient was seen and examined today at bedside in no acute distress. Nurse reports no overnight events. Patient has no new complaints. He is having BM and eating well. Denies fever, chills, chest pain, shortness of breath, abdominal pain, n/v/d/c. Objective - Vital Signs/Intake and Output Vital Signs (last 24 hours): Temp Pulse Resp BP Pulse Ox 98.2 F 96 H 20 106/66 97 09/25/18 16:27 09/25/18 16:27 09/25/18 16:27 09/25/18 16:27 09/25/18 16:27 - Medications Medications: Current Medications Aspirin (Ecotrin) 81 mg PO DAILY [facility] Last Admin: 09/25/18 11:13 Dose: 81 mg Clopidogrel Bisulfate (Plavix) 75 mg PO DAILY [facility] Last Admin: 09/25/18 11:14 Dose: 75 mg Docusate Sodium (Colace) 100 mg PO TID [facility] Last Admin: 09/25/18 13:22 Dose: Not Given Folic Acid (Folic Acid) 1 mg PO DAILY [facility] Last Admin: 09/25/18 11:13 Dose: 1 mg Lactobacillus Acidophilus (Bacid Acidophilus) 1 cap PO BID [facility] Last Admin: 09/25/18 11:14 Dose: 1 cap Lidocaine (Lidoderm) 1 ea TD DAILY [facility] Last Admin: 09/25/18 11:14 Dose: 1 ea Metoprolol Tartrate (Lopressor) 12.5 mg PO BID [facility] Last Admin: 09/25/18 11:14 Dose: 12.5 mg Multivitamins (Hexavitamin) 1 tab PO DAILY [facility] Last Admin: 09/25/18 11:14 Dose: 1 tab Rosuvastatin Calcium (Crestor) 20 mg PO [facility] Last Admin: 09/24/18 21:29 Dose: 20 mg Thiamine HCl (Vitamin B1 Tab) 100 mg PO DAILY [facility] Last Admin: 09/25/18 11:14 Dose: 100 mg Trazodone HCl (Desyrel) 50 mg PO HS [facility] Last Admin: 09/24/18 21:29 Dose: 50 mg - Labs Labs: 09/25/18 07:17 09/25/18 07:17 PT 14.9 SECONDS (9.7-12.2) H 08/28/18 05:46 INR 1.4 08/28/18 05:46 APTT 26 SECONDS (21-34) 08/28/18 05:46 - Constitutional Appears: Non-toxic, No Acute Distress - Head Exam Head Exam: ATRAUMATIC, NORMOCEPHALIC - Eye Exam Eye Exam: EOMI, Normal appearance - ENT Exam ENT Exam: Mucous Membranes Moist - Respiratory Exam Respiratory Exam: Clear to Ausculation Bilateral, NORMAL BREATHING PATTERN. absent: Rales, Rhonchi, Wheezes - Cardiovascular Exam Cardiovascular Exam: REGULAR RHYTHM, +S1, +S2. absent: Gallop, Rubs, Murmur - GI/Abdominal Exam GI & Abdominal Exam: Soft, Normal Bowel Sounds. absent: Tenderness - Extremities Exam Extremities Exam: Normal Capillary Refill. absent: Calf Tenderness Additional comments: LLE stocking in place mild swelling noticed on LLE, no swelling on RLE - Neurological Exam Neurological Exam: Alert, Awake, Oriented x3. absent: Normal Gait Neuro motor strength exam: Left Lower Extremity: 2/1, Right Lower Extremity: 5 - Psychiatric Exam Psychiatric exam: Normal Affect, Normal Mood - Skin Skin Exam: Dry, Intact, Normal Color, Warm Assessment and Plan - Assessment and Plan (Free Text) Assessment: Patient is a 52 yo male with a PMH of gastric ulcers who presented with L-side paralysis. Admitted for ischemic stroke then hemorrhagic conversion- suspect embolic stroke 2/2 Afib 2/2 alcohol, found to have PE and LLE DVT on hospital course, IVC filter placed 08/20, LLE with stocking. 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 PT continues daily assessment and therapy on patient, awaiting SW update on evaluation for disability benefits/application. Plan: 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- minimal improvement with PT - Aggressive, daily PT/OT- recommend acute rehab - continue to follow up with PT - L shoulder XR: no subluxation/dislocation, no fracture - L knee immobilizer during PT/standing ONLY - PT taught exercises to patient to continue engaging passive ROM to prevent adhesive capsulitis - will follow PT recs - DRY WALL PLASTERER consulted- advanced bite size diet/thin liquids - Reconsulted 09/10- continue with same diet as patient cannot cut food without use of left hand, patient would like to maintain current diet order - YONNY/MAURY consulted- waiting to hear back from patient's in [place] (letter sent e katy Aug 2018) -working on application for disability, as patient was employed before - Turn and reposition Q2H - Daily skin checks Depression - Zoloft 50 mg PO daily - Trazodone 50 mg PO QHS - Atarax 25 mg PO Q6H PRN- not requiring - Psychiatry consulted (Sonya/Max) Constipation, currently resolved - BM three times yesterday - Colace 100 mg PO TID - Prune juice PRN - Prune juice bottle seen at bedside. 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 Slight dilatation of the left lateral ventricle suggesting mild early compressive effects at the level of the left foramen of Garza. No definitive evidence of acute intracranial hemorrhage. - Most recent CT head 08/29: Continued evolution hemorrhagic conversion changes of a relatively large right MCA territory branch infarct. Improved mass effect and midline shift - MRI brain 08/15: There is a relatively large subacute right MCA territory infarct with areas of hemorrhage in the basal ganglia and right posterior frontoparietal watershed zone as described. Persistent mass effect with compression of the right lateral ventricle and [id number]-[id number] midline shift with septum pellucidum located approximately 11 mm to left of midline. Mild on dilatation left lateral ventricle due to mild compressive effects at the level of the left foramen of Garza. - Aspiration precautions - Seizure precautions - Lipid panel: choles 271, LDL 184, HDL 59, TG 100 - EKGs: sinus tachycardia - No Afib seen on telemetry - Echo x2: EF 60-65%, no abnormalities, no vegetations - Echo with bubble study: no thrombus, no PFO - No therapeutic anticoagulation - ASA 81 mg PO daily - Plavix 75 mg PO daily - Crestor 20 mg PO QHS - Neurosurgery consulted (Naomy)- no intervention - Neurology consulted (Shavonne/Dain)- hold anticoag but start ASA 81 and Plavix 75, signed off - Cardiology consulted (Neal)- no need for DAMIEN, okay to start ASA 81 and Plavix 75 Pulmonary embolism and LLE Deep vein thrombosis - Leukocytosis resolved - remains stable at 7.2 - D-dimer elevated (3912) - CTA chest 08/19: extensive pulmonary thromboembolism - LE Dopplers 08/19: extensive left lower extremity DVT - LLE edema with recent increase 09/09 - NO knee immobilizer while in bed - RITA stocking on LLE - No SCD on LLE - Hold therapeutic anticoagulation due to hemorrhagic stroke - IVC filter 08/20 - Hypercoagulable work-up negative - Hem/onc consulted (Mariola) - Vascular surgery consulted (Shyla)- IVC filter, RITA stocking Poor PO intake, improving - Printed Circuit Board Drafter referral- f/u recs - Continue monitoring Sinus tachycardia, fevers, improving- suspect 2/2 PE/DVT +/- central fevers 2/2 CVA - Most recent fever 100.6 on 08/22 8 AM - No increases to rate control meds as to not lower BP (already low normal) - Procal low (0.12) - EKG: sinus tachycardia (130s)- HR now mostly 80s, occasionally 90-100s sinus - Blood Cx no growth - Repeat no growth - Echo x2: EF 60-65%, no abnormalities, no vegetations - Recent low-normal hypotensive (90-100s/60s), stable- suspect due to poor PO intake, tachycardia compensation - Lopressor 12.5 mg PO BID Low back and leg pain, stable - CPK wnl - Lidoderm patch - Avoid Tylenol due to LFTs, avoid NSAIDs due to hemorrhagic stroke Alcohol use disorder, chronic - MV daily - Thiamine 100 mg PO daily - Folate 1 mg PO daily - Cessation counseling Marijuana use disorder, chronic - UDS positive - Cessation counseling Syncope, resolved- likely vasovagal - RESIDENTIAL BUILDER 09/07- syncope <1 minute while on commode, patient back to baseline without intervention - Reinforce fall precautions - Patient needs assistance with bedside commode Transaminitis, resolved - Continue to monitor CMP - Abd u/s: no significant or acute findings - Hepatitis panel negative - HIV pending Rash, resolved- consistent with urticaria - Discontinue topical Benadryl PRN - Discontinue topical cortizone 0.5% PRN Pneumonia, resolved- HCAP vs aspiration - Aspiration precautions - CXR: Mild venous congestion. Patchy increased markings at the left lung base with small left pleural effusion. Small nodular density projects over the left lung apex. Cardiomegaly. - Repeat CXR 08/20: no active disease - Lactobacillus acidophilus BID Urinary tract infection, resolved - Urine Cx: Enterococcus faecalis - Repeat no growth - Finished 5 day course of Cipro 400 mg IV Q12H - Repeat UA, Cx negative Scrotal pain, resolved - Testicular u/s: b/l scrotal thickening Ppx: VTE: contraindicated, only SCD to RLE, RITA stocking to LLE dysphagia/modified consistent diet supplements diet Code status: full code d/w Dr. Peter Grant PGY-1 <Bienvenido Castro - Last Filed: 09/29/18 19:31> Objective - Vital Signs/Intake and Output Vital Signs (last 24 hours): Temp Pulse Resp BP Pulse Ox 97.5 F L 104 H 20 105/65 96 09/29/18 16:00 09/29/18 16:00 09/29/18 16:00 09/29/18 16:00 09/29/18 16:00 Intake and Output: 09/29/18 09/30/18 18:59 06:59 Intake Total 400 Balance 400 - Medications Medications: Current Medications Aspirin (Ecotrin) 81 mg PO DAILY [facility] Last Admin: 09/29/18 09:20 Dose: 81 mg Benzocaine (Anbesol) 0 ml MM Q8H [facility] Stop: 10/02/18 09:46 Last Admin: 09/29/18 18:09 Dose: Not Given Clopidogrel Bisulfate (Plavix) 75 mg PO DAILY [facility] Last Admin: 09/29/18 09:20 Dose: 75 mg Docusate Sodium (Colace) 100 mg PO TID [facility] Last Admin: 09/29/18 18:10 Dose: 100 mg Folic Acid (Folic Acid) 1 mg PO DAILY [facility] Last Admin: 09/29/18 09:20 Dose: 1 mg Lactobacillus Acidophilus (Bacid Acidophilus) 1 cap PO BID [facility] Last Admin: 09/29/18 18:10 Dose: 1 cap Metoprolol Tartrate (Lopressor) 12.5 mg PO BID [facility] Last Admin: 09/29/18 18:10 Dose: 12.5 mg Multivitamins (Hexavitamin) 1 tab PO DAILY [facility] Last Admin: 09/29/18 09:20 Dose: 1 tab Rosuvastatin Calcium (Crestor) 20 mg PO HS [facility] Last Admin: 09/28/18 22:23 Dose: 20 mg Thiamine HCl (Vitamin B1 Tab) 100 mg PO DAILY [facility] Last Admin: 09/29/18 09:20 Dose: 100 mg Trazodone HCl (Desyrel) 50 mg PO HS [facility] Last Admin: 09/28/18 22:23 Dose: 50 mg - Labs Labs: 09/25/18 07:17 09/25/18 07:17 PT 14.9 SECONDS (9.7-12.2) H 08/28/18 05:46 INR 1.4 08/28/18 05:46 APTT 26 SECONDS (21-34) 08/28/18 05:46 Attending/Attestation - Attestation I have personally seen and examined this patient.: Yes I have fully participated in the care of the patient.: Yes I have reviewed all pertinent clinical information, including history, physical exam and plan: Yes Notes (Text): 09/29/18 19:28 This is a late entry. Care of this patient was gone over in detail with resident Dr. Grant. Bienvenido Castro D.O.
--- NOTE | 2018-09-26 09:32 | CP.PCM.PCO ---
Physician Communication Note - Physician Communication Note Physician Communication Note: Please see above
[2018-09-26] MEDS: Lidocaine 5% Patch TD SCH (10:36)
[2018-09-26] MEDS: Lactobacillus Acidophilus 500 MU Cap PO SCH ×2 (10:37→18:51)
[2018-09-26] MEDS: Multiple Vitamins Tab PO SCH (10:37)
[2018-09-26] MEDS: Benzocaine 10% Oral Anesthetic (12 ml) MM SCH ×2 (12:37→17:33)
[2018-09-27] MEDS: Benzocaine 10% Oral Anesthetic (12 ml) MM SCH ×3 (02:40→17:30)
[2018-09-27] MEDS: Lactobacillus Acidophilus 500 MU Cap PO SCH ×2 (09:37→17:30)
[2018-09-27] MEDS: Multiple Vitamins Tab PO SCH (09:37)
--- NOTE | 2018-09-27 10:09 | CP.PCM.PN ---
<Uche Vasquez - Last Filed: 09/27/18 17:53> Subjective - Date & Time of Evaluation Date of Evaluation: 09/27/18 Time of Evaluation: 09:00 - Subjective Subjective: PGY-[address] Bienvenido Castro Service Patient is seen and examined sitting at bedside. Patient reports no acute event overnights. Patient admits to mild pain on his right face/cheek. Patient denies any headaches, nasal congestion, cough, or sputum production. Patient continues feeling weak on his left side upper and lower extremity. Patient denies any fever, chills, chest pain, shortness of breath, nausea, vomiting, diarrhea, constipation, or urinary symptoms. Objective - Vital Signs/Intake and Output Vital Signs (last 24 hours): Temp Pulse Resp BP Pulse Ox 98.3 F 111 H 20 121/83 96 09/27/18 07:40 09/27/18 07:40 09/27/18 07:40 09/27/18 07:40 09/27/18 07:40 Intake and Output: 09/27/18 09/27/18 06:59 18:59 Output Total 300 Balance -300 - Medications Medications: Current Medications Aspirin (Ecotrin) 81 mg PO DAILY [facility] Last Admin: 09/27/18 09:37 Dose: 81 mg Benzocaine (Anbesol) 0 ml MM Q8H [facility] Stop: 10/02/18 09:45 Last Admin: 09/27/18 09:37 Dose: 1 ml Clopidogrel Bisulfate (Plavix) 75 mg PO DAILY [facility] Last Admin: 09/27/18 09:37 Dose: 75 mg Docusate Sodium (Colace) 100 mg PO TID [facility] Last Admin: 09/27/18 09:37 Dose: 100 mg Folic Acid (Folic Acid) 1 mg PO DAILY [facility] Last Admin: 09/27/18 09:37 Dose: 1 mg Lactobacillus Acidophilus (Bacid Acidophilus) 1 cap PO BID [facility] Last Admin: 09/27/18 09:37 Dose: 1 cap Metoprolol Tartrate (Lopressor) 12.5 mg PO BID [facility] Last Admin: 09/27/18 09:37 Dose: 12.5 mg Multivitamins (Hexavitamin) 1 tab PO DAILY [facility] Last Admin: 09/27/18 09:37 Dose: 1 tab Rosuvastatin Calcium (Crestor) 20 mg PO HS [facility] Last Admin: 09/26/18 21:30 Dose: 20 mg Thiamine HCl (Vitamin B1 Tab) 100 mg PO DAILY [facility] Last Admin: 09/27/18 09:38 Dose: 100 mg Trazodone HCl (Desyrel) 50 mg PO HS [facility] Last Admin: 09/26/18 21:30 Dose: 50 mg - Labs Labs: 09/25/18 07:17 09/25/18 07:17 PT 14.9 SECONDS (9.7-12.2) H 08/28/18 05:46 INR 1.4 08/28/18 05:46 APTT 26 SECONDS (21-34) 08/28/18 05:46 - Constitutional Appears: Non-toxic, No Acute Distress - Head Exam Head Exam: ATRAUMATIC, NORMAL INSPECTION, NORMOCEPHALIC - Eye Exam Eye Exam: EOMI, Normal appearance - ENT Exam ENT Exam: Mucous Membranes Moist, Normal Exam, Normal External Ear Exam, Normal Oropharynx Additional comments: mild tenderness on right maxillary sinus area on palpation, no erythema noted - Neck Exam Neck Exam: Full ROM, Normal Inspection. absent: Lymphadenopathy, Thyromegaly - Respiratory Exam Respiratory Exam: Clear to Ausculation Bilateral, NORMAL BREATHING PATTERN. absent: Rales, Rhonchi, Wheezes - Cardiovascular Exam Cardiovascular Exam: Tachycardia, REGULAR RHYTHM, +S1, +S2 - GI/Abdominal Exam GI & Abdominal Exam: Soft, Normal Bowel Sounds. absent: Distended, Tenderness - Extremities Exam Extremities Exam: absent: Tenderness Additional comments: improved swelling noticed on LLE, no swelling on RLE stocking in place on LLE - Neurological Exam Neurological Exam: Alert, Awake, Oriented x3 Neuro motor strength exam: Left Upper Extremity: 2/1, Right Upper Extremity: 5, Left Lower Extremity: 2/1, Right Lower Extremity: 5 - Psychiatric Exam Psychiatric exam: Flat Affect, Normal Mood - Skin Skin Exam: Dry, Intact, Normal Color, Warm Assessment and Plan - Assessment and Plan (Free Text) Assessment: Patient is a 52 yo male with a PMH of gastric ulcers who presented with L-side paralysis. Admitted for ischemic stroke then hemorrhagic conversion- suspect embolic stroke / Afib 2/2 alcohol, found to have PE and LLE DVT on hospital course, IVC filter placed 08/20, LLE with stocking. 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 Patient doing well with no acute changes. As per Patient's , [place], as patient has his own [place]. Patient's family and friends planning to buy him a ticket back to [place]. Plan: 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- minimal improvement with PT - Aggressive, daily PT/OT- recommend acute rehab - continue to follow up with PT - L shoulder XR: no subluxation/dislocation, no fracture - L knee immobilizer during PT/standing ONLY - PT taught exercises to patient to continue engaging passive ROM to prevent adhesive capsulitis - will follow PT recs - [employer]IT TESTER consulted- advanced bite size diet/thin liquids - Reconsulted 09/10- continue with same diet as patient cannot cut food without use of left hand, patient would like to maintain current diet order - SW/CM consulted- waiting to hear back from patient's in [place] (letter sent early Aug 2018) -working on application for disability, as patient was employed before - Turn and reposition Q2H - Daily skin checks Depression - Zoloft 50 mg PO daily - Trazodone 50 mg PO QHS - Atarax 25 mg PO Q6H PRN- not requiring - Psychiatry consulted (Sonya/Max) Constipation, currently resolved - BM three times yesterday - Colace 100 mg PO TID - Prune juice PRN - Prune juice bottle seen at bedside. 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 Slight dilatation of the left lateral ventricle suggesting mild early compressive effects at the level of the left foramen of Garza. No definitive evidence of acute intracranial hemorrhage. - Most recent CT head 08/29: Continued evolution hemorrhagic conversion changes of a relatively large right MCA territory branch infarct. Improved mass effect and midline shift - MRI brain 08/15: There is a relatively large subacute right MCA territory infarct with areas of hemorrhage in the basal ganglia and right posterior frontoparietal watershed zone as described. Persistent mass effect with compression of the right lateral ventricle and [id number] midline shift with septum pellucidum located approximately 11 mm to left of midline. Mild on dilat ation left lateral ventricle due to mild compressive effects at the level of the left foramen of Garza. - Aspiration precautions - Seizure precautions - Lipid panel: choles 271, LDL 184, HDL 59, TG 100 - EKGs: sinus tachycardia - No Afib seen on telemetry - Echo x2: EF 60-65%, no abnormalities, no vegetations - Echo with bubble study: no thrombus, no PFO - No therapeutic anticoagulation - ASA 81 mg PO daily - Plavix 75 mg PO daily - Crestor 20 mg PO QHS - Neurosurgery consulted (Naomy)- no intervention - Neurology consulted (Shavonne/Dain)- hold anticoag but start ASA 81 and Plavix 75, signed off - Cardiology consulted (Neal)- no need for DAMIEN, okay to start ASA 81 and Plavix 75 Pulmonary embolism and LLE Deep vein thrombosis - Leukocytosis resolved - remains stable at 7.2 - D-dimer elevated (3912) - CTA chest 08/19: extensive pulmonary thromboembolism - LE Dopplers 08/19: extensive left lower extremity DVT - LLE edema with recent increase 09/09 - NO knee immobilizer while in bed - RITA stocking on LLE - No SCD on LLE - Hold therapeutic anticoagulation due to hemorrhagic stroke - IVC filter 08/20 - Hypercoagulable work-up negative - Hem/onc consulted (Mariola) - Vascular surgery consulted (Shyla)- IVC filter, RITA stocking Poor PO intake, improving - Spring Tester referral- f/u recs - Continue monitoring Tooth pain - Anbesol 10% MM Q8H Sinus tachycardia, fevers, improving- suspect 2/2 PE/DVT +/- central fevers 2/2 CVA - Most recent fever 100.6 on 08/22 8 AM - No increases to rate control meds as to not lower BP (already low normal) - Procal low (0.12) - EKG: sinus tachycardia (130s)- HR now mostly 80s, occasionally 90-100s sinus - Blood Cx no growth - Repeat no growth - Echo x2: EF 60-65%, no abnormalities, no vegetations - Recent low-normal hypotensive (90-100s/60s), stable- suspect due to poor PO intake, tachycardia compensation - Lopressor 12.5 mg PO BID Low back and leg pain, stable - CPK wnl - Lidoderm patch - Avoid Tylenol due to LFTs, avoid NSAIDs due to hemorrhagic stroke Alcohol use disorder, chronic - MV daily - Thiamine 100 mg PO daily - Folate 1 mg PO daily - Cessation counseling Marijuana use disorder, chronic - UDS positive - Cessation counseling Syncope, resolved- likely vasovagal - [employer] ROUND LOGGER 09/07- syncope <1 minute while on commode, patient back to baseline without intervention - Reinforce fall precautions - Patient needs assistance with bedside commode Transaminitis, resolved - Continue to monitor CMP - Abd u/s: no significant or acute findings - Hepatitis panel negative - HIV pending Rash, resolved- consistent with urticaria - Discontinue topical Benadryl PRN - Discontinue topical cortizone 0.5% PRN Pneumonia, resolved- HCAP vs aspiration - Aspiration precautions - CXR: Mild venous congestion. Patchy increased markings at the left lung base with small left pleural effusion. Small nodular density projects over the left lung apex. Cardiomegaly. - Repeat CXR 08/20: no active disease - Lactobacillus acidophilus BID Urinary tract infection, resolved - Urine Cx: Enterococcus faecalis - Repeat no growth - Finished 5 day course of Cipro 400 mg IV Q12H - Repeat UA, Cx negative Scrotal pain, resolved - Testicular u/s: b/l scrotal thickening Ppx: VTE: contraindicated, only SCD to RLE, RITA stocking to LLE dysphagia/modified consistent diet supplements diet Code status: full code Dispo: As per YONNY, Patient's is planning on bringing patient back to his home country of [facility] (). Originally, it was communicated that patient had a flight for this saturday 09/29 at 7pm to . After speaking with patient's Edwina Núñez [place] the [place], Patient DOES NOT have a flight ticket to the [place] yet. Patient's states that patient's friend and former co-worker, Willie Martinez, will be arranging to obtain a flight ticket for Mr Aguayo. After speaking with Mr Martinez over the phone (his phone number is [phone]), Patient does not have a ticket bought yet and wont be leaving this Sunday. Mr Martinez is planning to collect money with all of Mr Aguayo's friends and former co workers to buy him a flight ticket. Mr Martinez will be reaching out to me tomorrow 09/27 when he visits Mr Aguayo at the hospital to update me on his efforts to obtain the flight ticket. Plan discussed with Dr Bienvenido Vasquez, PGY-1 <Bienvenido Castro J - Last Filed: 09/29/18 19:28> Objective - Vital Signs/Intake and Output Vital Signs (last 24 hours): Temp Pulse Resp BP Pulse Ox 97.5 F L 104 H 20 105/65 96 09/29/18 16:00 09/29/18 16:00 09/29/18 16:00 09/29/18 16:00 09/29/18 16:00 Intake and Output: 09/29/18 09/30/18 18:59 06:59 Intake Total 400 Balance 400 - Medications Medications: Current Medications Aspirin (Ecotrin) 81 mg PO DAILY [facility] Last Admin: 09/29/18 09:20 Dose: 81 mg Benzocaine (Anbesol) 0 ml MM Q8H [facility] Stop: 10/02/18 09:46 Last Admin: 09/29/18 18:09 Dose: Not Given Clopidogrel Bisulfate (Plavix) 75 mg PO DAILY [facility] Last Admin: 09/29/18 09:20 Dose: 75 mg Docusate Sodium (Colace) 100 mg PO TID [facility] Last Admin: 09/29/18 18:10 Dose: 100 mg Folic Acid (Folic Acid) 1 mg PO DAILY [facility] Last Admin: 09/29/18 09:20 Dose: 1 mg Lactobacillus Acidophilus (Bacid Acidophilus) 1 cap PO BID [facility] Last Admin: 09/29/18 18:10 Dose: 1 cap Metoprolol Tartrate (Lopressor) 12.5 mg PO BID [facility] Last Admin: 09/29/18 18:10 Dose: 12.5 mg Multivitamins (Hexavitamin) 1 tab PO DAILY [facility] Last Admin: 09/29/18 09:20 Dose: 1 tab Rosuvastatin Calcium (Crestor) 20 mg PO HS [facility] Last Admin: 09/28/18 22:23 Dose: 20 mg Thiamine HCl (Vitamin B1 Tab) 100 mg PO DAILY [facility] Last Admin: 09/29/18 09:20 Dose: 100 mg Trazodone HCl (Desyrel) 50 mg PO HS [facility] Last Admin: 09/28/18 22:23 Dose: 50 mg - Labs Labs: 09/25/18 07:17 09/25/18 07:17 PT 14.9 SECONDS (9.7-12.2) H 08/28/18 05:46 INR 1.4 08/28/18 05:46 APTT 26 SECONDS (21-34) 08/28/18 05:46 Attending/Attestation - Attestation I have personally seen and examined this patient.: Yes I have fully participated in the care of the patient.: Yes I have reviewed all pertinent clinical information, including history, physical exam and plan: Yes Notes (Text): 09/29/18 19:28 This is a late entry. Care of this patient was gone over in detail with resident Dr. Vasquez. Bienvenido Castro D.O.
[2018-09-28] MEDS: Benzocaine 10% Oral Anesthetic (12 ml) MM SCH ×2 (02:36→09:19)
[2018-09-28] MEDS: Lactobacillus Acidophilus 500 MU Cap PO SCH ×2 (09:19→17:39)
[2018-09-28] MEDS: Multiple Vitamins Tab PO SCH (09:24)
[2018-09-29] MEDS: Benzocaine 10% Oral Anesthetic (12 ml) MM SCH ×2 (09:19→18:09)
[2018-09-29] MEDS: Multiple Vitamins Tab PO SCH (09:20)
[2018-09-29] MEDS: Lactobacillus Acidophilus 500 MU Cap PO SCH ×2 (09:20→18:10)
[2018-09-30] MEDS: Benzocaine 10% Oral Anesthetic (12 ml) MM SCH ×3 (02:21→17:37)
--- NOTE | 2018-09-30 07:09 | CP.PCM.PN ---
<Uche Vasquez - Last Filed: 09/30/18 17:16> Subjective - Date & Time of Evaluation Date of Evaluation: 09/30/18 Time of Evaluation: 08:00 - Subjective Subjective: PGY-[address] Bienvenido Castro Patient is seen and examined sitting in bed. Patient has no complaints today and no acute events overnight. Patient is brushing his teeth at bedside. had one episode of headaches in back of head last night, but resolved with 1x dose ibuprofen medication given. States that he is eating well and having regular bowel movements. Patient has prune juice bottle by bedside. Patient continues to feel weak in his left arm, but states feels his left leg is slightly stronger. Patient denies fever, chills, chest pain, shortness of breath, abdominal pain, n/v/d/c, urinary symptoms. Objective - Vital Signs/Intake and Output Vital Signs (last 24 hours): Temp Pulse Resp BP Pulse Ox 97.9 F 95 H 20 99/68 L 96 09/29/18 23:45 09/29/18 23:45 09/29/18 23:45 09/29/18 23:45 09/29/18 23:45 Intake and Output: 09/30/18 09/30/18 06:59 18:59 Intake Total 600 Balance 600 - Medications Medications: Current Medications Aspirin (Ecotrin) 81 mg PO DAILY [facility] Last Admin: 09/29/18 09:20 Dose: 81 mg Benzocaine (Anbesol) 0 ml MM Q8H [facility] Stop: 10/02/18 09:46 Last Admin: 09/30/18 02:21 Dose: Not Given Clopidogrel Bisulfate (Plavix) 75 mg PO DAILY [facility] Last Admin: 09/29/18 09:20 Dose: 75 mg Docusate Sodium (Colace) 100 mg PO TID [facility] Last Admin: 09/29/18 18:10 Dose: 100 mg Folic Acid (Folic Acid) 1 mg PO DAILY [facility] Last Admin: 09/29/18 09:20 Dose: 1 mg Lactobacillus Acidophilus (Bacid Acidophilus) 1 cap PO BID [facility] Last Admin: 09/29/18 18:10 Dose: 1 cap Metoprolol Tartrate (Lopressor) 12.5 mg PO BID [facility] Last Admin: 09/29/18 18:10 Dose: 12.5 mg Multivitamins (Hexavitamin) 1 tab PO DAILY [facility] Last Admin: 09/29/18 09:20 Dose: 1 tab Rosuvastatin Calcium (Crestor) 20 mg PO HS [facility] Last Admin: 09/29/18 21:35 Dose: 20 mg Thiamine HCl (Vitamin B1 Tab) 100 mg PO DAILY [facility] Last Admin: 09/29/18 09:20 Dose: 100 mg Trazodone HCl (Desyrel) 50 mg PO HS [facility] Last Admin: 09/29/18 21:35 Dose: 50 mg - Labs Labs: 09/25/18 07:17 09/25/18 07:17 PT 14.9 SECONDS (9.7-12.2) H 08/28/18 05:46 INR 1.4 08/28/18 05:46 APTT 26 SECONDS (21-34) 08/28/18 05:46 - Constitutional Appears: Non-toxic, No Acute Distress - Head Exam Head Exam: ATRAUMATIC, NORMAL INSPECTION, NORMOCEPHALIC - Eye Exam Eye Exam: EOMI, Normal appearance, PERRL - ENT Exam ENT Exam: Mucous Membranes Moist, Normal Exam - Neck Exam Neck Exam: Full ROM, Normal Inspection - Respiratory Exam Respiratory Exam: Clear to Ausculation Bilateral, NORMAL BREATHING PATTERN. absent: Rales, Rhonchi, Wheezes - Cardiovascular Exam Cardiovascular Exam: REGULAR RHYTHM, +S1, +S2 - GI/Abdominal Exam GI & Abdominal Exam: Soft, Normal Bowel Sounds. absent: Distended, Guarding, Tenderness - Extremities Exam Extremities Exam: absent: Tenderness Additional comments: LE Stocking in place no changes in left lower extremity swelling - Back Exam Back Exam: NORMAL INSPECTION - Neurological Exam Neurological Exam: Alert, Awake, Oriented x3. absent: Normal Gait Neuro motor strength exam: Left Upper Extremity: 2/1, Right Upper Extremity: 5, Left Lower Extremity: 2/1, Right Lower Extremity: 5 - Psychiatric Exam Psychiatric exam: Flat Affect, Normal Mood - Skin Skin Exam: Dry, Intact, Normal Color, Warm Assessment and Plan - Assessment and Plan (Free Text) Plan: 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- minimal improvement with PT - Aggressive, daily PT/OT- recommend acute rehab - continue to follow up with PT - L shoulder XR: no subluxation/dislocation, no fracture - L knee immobilizer during PT/standing ONLY - PT taught exercises to patient to continue engaging passive ROM to prevent adhesive capsulitis - will follow PT recs - TEACHING MANAGER consulted- advanced bite size diet/thin liquids - Reconsulted 09/10- continue with same diet as patient cannot cut food without use of left hand, patient would like to maintain current diet order - SW/CM consulted- waiting to hear back from patient's in [place] (letter sent early Aug 2018) -working on application for disability, as patient was employed before - Turn and reposition Q2H - Daily skin checks Depression - Zoloft 50 mg PO daily - Trazodone 50 mg PO QHS - Atarax 25 mg PO Q6H PRN- not requiring - Psychiatry consulted (Sonya/Max) Constipation, currently resolved - Colace 100 mg PO TID - Prune juice PRN - Prune juice bottle seen at bedside. 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 Slight dilatation of the left lateral ventricle suggesting mild early compressive effects at the level of the left foramen of Garza. No definitive evidence of acute intracranial hemorrhage. - Most recent CT head 08/29: Continued evolution hemorrhagic conversion changes of a relatively large right MCA territory branch infarct. Improved mass effect and midline shift - MRI brain 08/15: There is a relatively large subacute right MCA territory infarct with areas of hemorrhage in the basal ganglia and right posterior frontoparietal watershed zone as described. Persistent mass effect with compression of the right lateral ventricle and [id number] midline shift with septum pellucidum located approximately 11 mm to left of midline. Mild on dilatation left lateral ventricle due to mild compressive effects at the level of the left foramen of Garza. - Aspiration precautions - Seizure precautions - Lipid panel: choles 271, LDL 184, HDL 59, TG 100 - EKGs: sinus tachycardia - No Afib seen on telemetry - Echo x2: EF 60-65%, no abnormalities, no vegetations - Echo with bubble study: no thrombus, no PFO - No therapeutic anticoagulation - ASA 81 mg PO daily - Plavix 75 mg PO daily - Crestor 20 mg PO QHS - Neurosurgery consulted (Naomy)- no intervention - Neurology consulted (Shavonne/Dain)- hold anticoag but start ASA 81 and Plavix 75, signed off - Cardiology consulted (Neal)- no need for DAMIEN, okay to start ASA [address] avix 75 Pulmonary embolism and LLE Deep vein thrombosis - Leukocytosis resolved - remains stable at 7.2 - D-dimer elevated (3912) - CTA chest 08/19: extensive pulmonary thromboembolism - LE Dopplers 08/19: extensive left lower extremity DVT - LLE edema with recent increase 09/09 - NO knee immobilizer while in bed - RITA stocking on LLE - No SCD on LLE - Hold therapeutic anticoagulation due to hemorrhagic stroke - IVC filter 08/20 - Hypercoagulable work-up negative - Hem/onc consulted (Mariola) - Vascular surgery consulted (Shyla)- IVC filter, RITA stocking Tooth pain, improved - Anbesol 10% MM Q8H Sinus tachycardia, fevers, improving- suspect 2/2 PE/DVT +/- central fevers 2/2 CVA - Most recent fever 100.6 on 08/22 8 AM - No increases to rate control meds as to not lower BP (already low normal) - Procal low (0.12) - EKG: sinus tachycardia (130s)- HR now mostly 80s, occasionally 90-100s sinus - Blood Cx no growth - Repeat no growth - Echo x2: EF 60-65%, no abnormalities, no vegetations - Recent low-normal hypotensive (90-100s/60s), stable- suspect due to poor PO intake, tachycardia compensation - Lopressor 12.5 mg PO BID Low back and leg pain, stable - CPK wnl - Lidoderm patch - Avoid Tylenol due to LFTs, avoid NSAIDs due to hemorrhagic stroke Alcohol use disorder, chronic - MV daily - Thiamine 100 mg PO daily - Folate 1 mg PO daily - Cessation counseling Marijuana use disorder, chronic - UDS positive - Cessation counseling Syncope, resolved- likely vasovagal - LICENSING REGISTRATION EXAMINER 09/07- syncope <1 minute while on commode, patient back to baseline without intervention - Reinforce fall precautions - Patient needs assistance with bedside commode Transaminitis, resolved - Continue to monitor CMP - Abd u/s: no significant or acute findings - Hepatitis panel negative - HIV pending Rash, resolved- consistent with urticaria - Discontinue topical Benadryl PRN - Discontinue topical cortizone 0.5% PRN Pneumonia, resolved- HCAP vs aspiration - Aspiration precautions - CXR: Mild venous congestion. Patchy increased markings at the left lung base with small left pleural effusion. Small nodular density projects over the left lung apex. Cardiomegaly. - Repeat CXR 08/20: no active disease - Lactobacillus acidophilus BID Urinary tract infection, resolved - Urine Cx: Enterococcus faecalis - Repeat no growth - Finished 5 day course of Cipro 400 mg IV Q12H - Repeat UA, Cx negative Scrotal pain, resolved - Testicular u/s: b/l scrotal thickening Ppx: VTE: contraindicated, only SCD to RLE, RITA stocking to LLE dysphagia/modified consistent diet supplements diet Code status: full code DISPO: Will continue to follow up with Patient's Friend Williestanley Martinez on paperwork that travel agency will acquired from airline where Mr Aguayo will be potentially be flying with. Again, this form will ensure that patient can fly and with what medical recommendation can he do so. Once the forms are filled, Friend can book at trip for him back to . We are checking on 6T to see if the paperwork/forms were faxed over to my attention. Will be checking with friend. 14:21: I spoke wiht Mr Martinez on the phone in the afternoon. As per Mr Martinez, residential real estate agent stated that patient can fly either on a business class with a wheelchair or with another person who can be with him on the flight. He states that this is very expensive and that he will try to collect the money to obtain these options. Mr Martinez stated that the agency does not need a medical clearance anymore, but was suggested that he can get a "certificate" that patient is discharged from hospital. I explained to him that Patient is medically stable, but that we are awaiting for travel plans to be established in order to discharge patient. Mr Martinez will contact travel agency and will try to arrange for a ticket to be bought. Mr Martinez will follow up on Sunday. Plan and dispo discussed with YONNY Velasco on 6T. Plan discussed with Bienvenido Vasquez, PGY-1 <Bienvenido Castro - Last Filed: 10/02/18 00:11> Objective - Vital Signs/Intake and Output Vital Signs (last 24 hours): Temp Pulse Resp BP Pulse Ox 98.6 F 75 20 105/66 96 10/01/18 15:00 10/01/18 15:00 10/01/18 15:00 10/01/18 15:00 10/01/18 15:00 Intake and Output: 10/01/18 10/02/18 18:59 06:59 Intake Total 400 Balance 400 - Medications Medications: Current Medications Aspirin (Ecotrin) 81 mg PO DAILY [facility] Last Admin: 10/01/18 09:21 Dose: 81 mg Benzocaine (Anbesol) 0 ml MM Q8H [facility] Stop: 10/02/18 09:46 Last Admin: 10/01/18 18:18 Dose: Not Given Clopidogrel Bisulfate (Plavix) 75 mg PO DAILY [facility] Last Admin: 10/01/18 09:21 Dose: 75 mg Docusate Sodium (Colace) 100 mg PO TID [facility] Last Admin: 10/01/18 18:17 Dose: 100 mg Folic Acid (Folic Acid) 1 mg PO DAILY [facility] Last Admin: 10/01/18 09:21 Dose: 1 mg Lactobacillus Acidophilus (Bacid Acidophilus) 1 cap PO BID [facility] Last Admin: 10/01/18 18:17 Dose: 1 cap Metoprolol Tartrate (Lopressor) 12.5 mg PO BID [facility] Last Admin: 10/01/18 18:17 Dose: 12.5 mg Multivitamins (Hexavitamin) 1 tab PO DAILY [facility] Last Admin: 10/01/18 09:21 Dose: 1 tab Rosuvastatin Calcium (Crestor) 20 mg PO HS [facility] Last Admin: 10/01/18 21:40 Dose: 20 mg Thiamine HCl (Vitamin B1 Tab) 100 mg PO DAILY [facility] Last Admin: 10/01/18 09:21 Dose: 100 mg Trazodone HCl (Desyrel) 50 mg PO HS [facility] Last Admin: 10/01/18 21:40 Dose: 50 mg - Labs Labs: 09/25/18 07:17 09/25/18 07:17 PT 14.9 SECONDS (9.7-12.2) H 08/28/18 05:46 INR 1.4 08/28/18 05:46 APTT 26 SECONDS (21-34) 08/28/18 05:46 Attending/Attestation - Attestation I have personally seen and examined this patient.: Yes I have fully participated in the care of the patient.: Yes I have reviewed all pertinent clinical information, including history, physical exam and plan: Yes Notes (Text): 10/02/18 00:11 This is a late entry. Care of this patient was gone over with resident Dr. Sandro Vasquez. Bienvenido Castro D.O.
[2018-09-30] MEDS: Lactobacillus Acidophilus 500 MU Cap PO SCH ×2 (09:59→17:37)
[2018-09-30] MEDS: Multiple Vitamins Tab PO SCH (10:00)
[2018-10-01] MEDS: Multiple Vitamins Tab PO SCH (09:21)
[2018-10-01] MEDS: Benzocaine 10% Oral Anesthetic (12 ml) MM SCH ×2 (09:21→18:18)
[2018-10-01] MEDS: Lactobacillus Acidophilus 500 MU Cap PO SCH ×2 (09:21→18:17)
[2018-10-02] MEDS: Benzocaine 10% Oral Anesthetic (12 ml) MM SCH ×2 (02:31→10:10)
[2018-10-02] MEDS: Multiple Vitamins Tab PO SCH (10:22)
[2018-10-02] MEDS: Lactobacillus Acidophilus 500 MU Cap PO SCH ×2 (10:22→18:22)
--- NOTE | 2018-10-02 22:19 | CP.PCM.PN ---
<Vilma Willingham P - Last Filed: 10/02/18 22:23> Subjective - Date & Time of Evaluation Date of Evaluation: 10/02/18 Time of Evaluation: 08:00 - Subjective Subjective: PGY-[address] Norton. Patient seen and evaluated at bedside. He denies any complaints at this time. Denies fever, chills, nausea, vomiting, chest pain, shortness of breath, headache and any other symptoms. Objective - Vital Signs/Intake and Output Vital Signs (last 24 hours): Temp Pulse Resp BP Pulse Ox 97.9 F 92 H 20 113/74 95 10/02/18 16:00 10/02/18 16:00 10/02/18 16:00 10/02/18 16:00 10/02/18 16:00 Intake and Output: 10/02/18 10/03/18 18:59 06:59 Intake Total 500 Balance 500 - Medications Medications: Current Medications Aspirin (Ecotrin) 81 mg PO DAILY [facility] Last Admin: 10/02/18 10:12 Dose: 81 mg Clopidogrel Bisulfate (Plavix) 75 mg PO DAILY [facility] Last Admin: 10/02/18 10:22 Dose: 75 mg Docusate Sodium (Colace) 100 mg PO TID [facility] Last Admin: 10/02/18 18:21 Dose: 100 mg Folic Acid (Folic Acid) 1 mg PO DAILY [facility] Last Admin: 10/02/18 10:11 Dose: 1 mg Lactobacillus Acidophilus (Bacid Acidophilus) 1 cap PO BID [facility] Last Admin: 10/02/18 18:22 Dose: 1 cap Metoprolol Tartrate (Lopressor) 12.5 mg PO BID [facility] Last Admin: 10/02/18 18:22 Dose: 12.5 mg Multivitamins (Hexavitamin) 1 tab PO DAILY [facility] Last Admin: 10/02/18 10:22 Dose: 1 tab Rosuvastatin Calcium (Crestor) 20 mg PO [facility] Last Admin: 10/01/18 21:40 Dose: 20 mg Thiamine HCl (Vitamin B1 Tab) 100 mg PO DAILY [facility] Last Admin: 10/02/18 10:22 Dose: 100 mg Trazodone HCl (Desyrel) 50 mg PO [facility] Last Admin: 10/01/18 21:40 Dose: 50 mg - Labs Labs: 09/25/18 07:17 09/25/18 07:17 PT 14.9 SECONDS (9.7-12.2) H 08/28/18 05:46 INR 1.4 08/28/18 05:46 APTT 26 SECONDS (21-34) 08/28/18 05:46 - Constitutional Appears: No Acute Distress - Head Exam Head Exam: ATRAUMATIC, NORMOCEPHALIC - Eye Exam Eye Exam: EOMI, PERRL - ENT Exam ENT Exam: Mucous Membranes Moist - Neck Exam Neck Exam: Normal Inspection - Respiratory Exam Respiratory Exam: Clear to Ausculation Bilateral, NORMAL BREATHING PATTERN. absent: Rales, Rhonchi, Wheezes - Cardiovascular Exam Cardiovascular Exam: REGULAR RHYTHM, +S1, +S2 - GI/Abdominal Exam GI & Abdominal Exam: Soft, Normal Bowel Sounds. absent: Guarding, Rigid, Tenderness, Rebound - Extremities Exam Extremities Exam: Pedal Edema (1+ pitting edema LLE up to tibial tuberosity, L arm held in flexion) - Neurological Exam Neuro motor strength exam: Left Upper Extremity: 5, Right Upper Extremity: 2/1, Left Lower Extremity: 5, Right Lower Extremity: 2/1 - Psychiatric Exam Psychiatric exam: Flat Affect - Skin Skin Exam: Dry, Normal Color, Warm Assessment and Plan - Assessment and Plan (Free Text) Plan: 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- minimal improvement with PT - Aggressive, daily PT/OT- recommend acute rehab - continue to follow up with PT - L shoulder XR: no subluxation/dislocation, no fracture - L knee immobilizer during PT/standing ONLY - PT taught exercises to patient to continue engaging passive ROM to prevent adhesive capsulitis - will follow PT recs - MARKETING INFORMATION MANAGER consulted- advanced bite size diet/thin liquids - Reconsulted 09/10- continue with same diet as patient cannot cut food without use of left hand, patient would like to maintain current diet order - SW/CM consulted- waiting to hear back from patient's in (letter sent early Aug 2018) -working on application for disability, as patient was employed before - Turn and reposition Q2H - Daily skin checks Depression - Zoloft 50 mg PO daily - Trazodone 50 mg PO QHS - Atarax 25 mg PO Q6H PRN- not requiring - Psychiatry consulted (Sonya/Max) Constipation, currently resolved - Colace 100 mg PO TID - Prune juice PRN - Prune juice bottle seen at bedside. 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 Slight dilatation of the left lateral ventricle suggesting mild early compressive effects at the level of the left foramen of Garza. No definitive evidence of acute intracranial hemorrhage. - Most recent CT head 08/29: Continued evolution hemorrhagic conversion changes of a relatively large right MCA territory branch infarct. Improved mass effect and midline shift - MRI brain 08/15: There is a relatively large subacute right MCA territory infarct with areas of hemorrhage in the basal ganglia and right posterior frontoparietal watershed zone as described. Persistent mass effect with compression of the right lateral ventricle and [id number] midline shift with septum pellucidum located approximately 11 mm to left of midline. Mild on dila tation left lateral ventricle due to mild compressive effects at the level of the left foramen of Garza. - Aspiration precautions - Seizure precautions - Lipid panel: choles 271, LDL 184, HDL 59, TG 100 - EKGs: sinus tachycardia - No Afib seen on telemetry - Echo x2: EF 60-65%, no abnormalities, no vegetations - Echo with bubble study: no thrombus, no PFO - No therapeutic anticoagulation - ASA 81 mg PO daily - Plavix 75 mg PO daily - Crestor 20 mg PO QHS - Neurosurgery consulted (Naomy)- no intervention - Neurology consulted (Shavonne/Dain)- hold anticoag but start ASA 81 and Plavix 75, signed off - Cardiology consulted (Neal)- no need for DAMIEN, okay to start ASA 81 and Plavix 75 Pulmonary embolism and LLE Deep vein thrombosis - Leukocytosis resolved - remains stable at 7.2 - D-dimer elevated (3912) - CTA chest 08/19: extensive pulmonary thromboembolism - LE Dopplers 08/19: extensive left lower extremity DVT - LLE edema with recent increase 09/09 - NO knee immobilizer while in bed - RITA stocking on LLE - No SCD on LLE - Hold therapeutic anticoagulation due to hemorrhagic stroke - IVC filter 08/20 - Hypercoagulable work-up negative - Hem/onc consulted (Mariola) - Vascular surgery consulted (Shyla)- IVC filter, RITA stocking Tooth pain, improved - Anbesol 10% MM Q8H Sinus tachycardia, fevers, improving- suspect 2/2 PE/DVT +/- central fevers 2/2 CVA - Most recent fever 100.6 on 08/22 8 AM - No increases to rate control meds as to not lower BP (already low normal) - Procal low (0.12) - EKG: sinus tachycardia (130s)- HR now mostly 80s, occasionally 90-100s sinus - Blood Cx no growth - Repeat no growth - Echo x2: EF 60-65%, no abnormalities, no vegetations - Recent low-normal hypotensive (90-100s/60s), stable- suspect due to poor PO intake, tachycardia compensation - Lopressor 12.5 mg PO BID Low back and leg pain, stable - CPK wnl - Lidoderm patch - Avoid Tylenol due to LFTs, avoid NSAIDs due to hemorrhagic stroke Alcohol use disorder, chronic - MV daily - Thiamine 100 mg PO daily - Folate 1 mg PO daily - Cessation counseling Marijuana use disorder, chronic - UDS positive - Cessation counseling Syncope, resolved- likely vasovagal - COMMISSIONER PUBLIC WORKS 09/07- syncope <1 minute while on commode, patient back to baseline without intervention - Reinforce fall precautions - Patient needs assistance with bedside commode Transaminitis, resolved - Continue to monitor CMP - Abd u/s: no significant or acute findings - Hepatitis panel negative - HIV pending Rash, resolved- consistent with urticaria - Discontinue topical Benadryl PRN - Discontinue topical cortizone 0.5% PRN Pneumonia, resolved- HCAP vs aspiration - Aspiration precautions - CXR: Mild venous congestion. Patchy increased markings at the left lung base with small left pleural effusion. Small nodular density projects over the left lung apex. Cardiomegaly. - Repeat CXR 08/20: no active disease - Lactobacillus acidophilus BID Urinary tract infection, resolved - Urine Cx: Enterococcus faecalis - Repeat no growth - Finished 5 day course of Cipro 400 mg IV Q12H - Repeat UA, Cx negative Scrotal pain, resolved - Testicular u/s: b/l scrotal thickening Ppx: VTE: contraindicated, only SCD to RLE, RITA stocking to LLE dysphagia/modified consistent diet supplements diet Code status: full code I spoke to patient's friend Willie Martinez ([phone]) regarding update in arranging a flight for patient back to [place] He says he will personally escort patient to [place]. He is in the process of renewing his own passport. In the meantime, he has also started raising funds to purchase the patient a plane ticket. He states despite donations, he is still in need of $300 to purchase the ticket. Will follow up with Mr. Martinez and social media executive tomorrow. Case discussed with Dr. Norton. Vilma Willingham, PGY-1 <Mariel Norton V - Last Filed: 10/13/18 16:46> Objective - Vital Signs/Intake and Output Vital Signs (last 24 hours): Temp Pulse Resp BP Pulse Ox 98.0 F 79 20 124/82 98 10/13/18 09:26 10/13/18 09:26 10/13/18 09:26 10/13/18 09:26 10/13/18 09:26 - Labs Labs: 10/11/18 07:55 10/11/18 07:56 PT 14.9 SECONDS (9.7-12.2) H 08/28/18 05:46 INR 1.4 08/28/18 05:46 APTT 26 SECONDS (21-34) 08/28/18 05:46 Assessment and Plan (1) Arterial ischemic stroke, MCA (middle cerebral artery), right, acute Status: Acute (2) ETOH abuse Status: Chronic (3) Impaired glucose tolerance Status: Acute (4) Lipid disorder Status: Acute (5) Leukocytosis Status: Acute (6) DVT (deep venous thrombosis) Status: Acute (7) Pulmonary embolism Status: Acute (8) Prophylactic measure Status: Acute Attending/Attestation - Attestation I have personally seen and examined this patient.: Yes I have fully participated in the care of the patient.: Yes I have reviewed all pertinent clinical information, including history, physical exam and plan: Yes
[2018-10-03] MEDS: Lactobacillus Acidophilus 500 MU Cap PO SCH ×2 (10:18→21:54)
[2018-10-03] MEDS: Multiple Vitamins Tab PO SCH (10:18)
--- NOTE | 2018-10-03 11:04 | PCM.FALL ---
<Tiffanie Cochran Viviana. - Last Filed: 10/03/18 11:01> Post Fall Progress Note - Post Fall Fall Date: 10/03/18 Description of Fall: Patient was trying to transfer himself from bed to chair at bedside. He attempted to use the rail with his hand, missed the rail and fell onto his knees. He denies hitting his head, back, buttocks, or elsewhere on his body. Vitals were taking and his BP ws 125/84 and HR was 95. The patient denies pain and dizziness. The patient was then transferred to the bed and examined. No ecchymosis, erythema, swelling, lacerations, abrasions, or tenderness to palpation was noted on examination of the buttocks, hips or lower extremities. Hip and bilateral knee xrays were ordered. Will follow up. - Post Fall Exam Vital Sign: Temp Pulse Resp BP Pulse Ox 97.8 F 102 H 20 98/70 L 98 10/03/18 07:00 10/03/18 07:00 10/03/18 07:00 10/03/18 07:00 10/03/18 07:00 Skull Exam: Negative for: Scalp wound Skin Exam: Positive for: Colour (normal, no ecchymosis, erythema, lacerations, abrasions noted). Negative for: Lacerations, Grazes, Bruising Chest Exam: Negative for: Difficulty breathing Pelvic Exam: Negative for: Tenderness (no tenderness/ecchymosis/swelling/lacerations/abrasions of hips, pelvis, and sacrum) Leg Exam: Positive for: Alteration in range of movement (weakness and decreased ROM of LLE secondary to prior CVA; no acute changes from the fall noted). Negative for: Deformity <Mariel Norton V - Last Filed: 10/13/18 16:47> Post Fall Progress Note - Post Fall Exam Vital Sign: Temp Pulse Resp BP Pulse Ox 98.0 F 79 20 124/82 98 10/13/18 09:26 10/13/18 09:26 10/13/18 09:26 10/13/18 09:26 10/13/18 09:26 Attending/Attestation - Attestation I have personally seen and examined this patient.: Yes I have fully participated in the care of the patient.: Yes I have reviewed all pertinent clinical information, including history, physical exam and plan: Yes Notes (Text): This is late computer entry. Patient had attempted to get back from chair to bed without assistance. He has been counselled many times he needs assistance. No LOC. Xrays ordered. No apparent injury noted. Discussed with clinical partner and nursing staff.
--- NOTE | 2018-10-03 15:03 | RAD ---
Date of service: 10/03/2018 PROCEDURE: HISTORY: fell on knees COMPARISON: None TECHNIQUE: AP pelvis and frog's leg view. FINDINGS: No fracture or dislocation seen. Lumbosacral level transitional elements and incomplete closure of the inferred sacralized L5 posterior elements. Bilateral symmetrical mild sclerotic SI joint arthrosis. Bilateral hip mild arthrosis in probable benign sub cortical sub cm cystic change to the superior right acetabulum. No typical fracture suggested. Partially visualized is a inferior IVC filter IMPRESSION: No definitive fracture identified. No suspect dislocation.Other findings as above.
--- NOTE | 2018-10-03 15:16 | RAD ---
Date of service: 10/03/2018 PROCEDURE: Bilateral Knee Radiographs. HISTORY: fell on knees COMPARISON: None. FINDINGS: BONES: Right Knee: Normal. No fracture. Left Knee: Normal. No fracture. JOINTS: Right Knee: Minimal osteoarthrosis Left knee: Minimal osteoarthrosis SOFT TISSUES: Right Knee: Normal. Left Knee: Normal. JOINT EFFUSION: Right Knee: None. Left Knee: None. OTHER FINDINGS: None. IMPRESSION: Minimal osteoarthrosis. No fracture or dislocation.
[2018-10-04] MEDS: Multiple Vitamins Tab PO SCH (09:52)
[2018-10-04] MEDS: Lactobacillus Acidophilus 500 MU Cap PO SCH ×2 (09:52→22:12)
[2018-10-04 12:05] LABS: BASO # 0.1 K/uL (0.0-0.2); BASO % 1.4 % (0.0-2.0); EOS # 0.2 K/uL (0.0-0.7); HEMOGLOBIN 11.2 g/dL (12.0-18.0); LYMPH # 1.7 K/uL (1.0-4.3); LYMPH % 34.2 % (20.0-40.0); MEAN CELL VOLUME 87.4 fL (80.0-94.0); MEAN CORPUSCULAR HEMOGLOBIN 28.8 pg (27.0-31.0); MEAN CORPUSCULAR HGB CONC 32.9 g/dL (33.0-37.0); MEAN PLATELET VOLUME 8.9 fL (7.2-11.7); MONO # 0.7 K/uL (0.0-0.8); MONO % 13.5 % (0.0-10.0); NEUT # 2.4 K/uL (1.8-7.0); NEUT % 46.9 % (50.0-75.0); RBC 3.88 Mil/uL (4.40-5.90); RED CELL DISTRIBUTION WIDTH 13.5 % (11.5-14.5); WHITE BLOOD COUNT 5.1 K/uL (4.8-10.8)
[2018-10-04 12:25] LABS: ALB/GLOB RATIO 1.1 (1.0-2.1); ALBUMIN 3.6 g/dL (3.5-5.0); ALT/SGPT 43 U/L (21-72); AST/SGOT 37 U/L (17-59); BLOOD UREA NITROGEN 9 mg/dL (9-20); CALCIUM 9.1 mg/dl (8.6-10.4); GFR NON-AFRICAN AMERICAN > 60
--- NOTE | 2018-10-04 14:10 | CP.PCM.CON ---
History of Present Illness - History of Present Illness History of Present Illness: Podiatry Consult - Dr. Arias 52 y/o male with no documented PMHx s/p right-sided CVA approx 6 weeks ago seen at bedside today for bilateral scaling on plantar feet. Majority of HPI obtained from chart review. Pt denies any pain to the feet. Denies being diabetic. Denies tingling, numbness or burning in the feet. States he is having some pain in the lower extremities due to a fall yesterday, but no specific complaints to the ankle or feet. Denies fever, chills, nausea, vomiting, chest pain or shortness of breath PSHx: denies All: NKDA SocHx: per chart review, pt has history of alcohol abuse; denies cigarette or illicit drug use Past Patient History - Past Medical History & Family History Past Medical History?: No - Past Social History Smoking Status: Unknown If Ever Smoked - MUSCULOSKELETAL/RHEUMATOLOGICAL Hx Falls: No - PSYCHIATRIC Hx Substance Use: No - SURGICAL HISTORY Hx Surgeries: No - ANESTHESIA Hx Anesthesia: No Meds Allergies/Adverse Reactions: Allergies Allergy/AdvReac Type Severity Reaction Status Date / Time No Known Allergies Allergy Verified 08/10/18 17:59 - Medications Medications: Current Medications Acetaminophen (Tylenol 325mg Tab) 650 mg PO Q6 PRN PRN Reason: Pain, moderate (4-7) Last Admin: 10/04/18 13:29 Dose: 650 mg Aspirin (Ecotrin) 81 mg PO DAILY [facility] Last Admin: 10/04/18 09:52 Dose: 81 mg Clopidogrel Bisulfate (Plavix) 75 mg PO DAILY [facility] Last Admin: 10/04/18 09:52 Dose: 75 mg Docusate Sodium (Colace) 100 mg PO TID [facility] Last Admin: 10/04/18 13:29 Dose: 100 mg Folic Acid (Folic Acid) 1 mg PO DAILY [facility] Last Admin: 10/04/18 09:51 Dose: 1 mg Lactobacillus Acidophilus (Bacid Acidophilus) 1 cap PO BID [facility] Last Admin: 10/04/18 09:52 Dose: 1 cap Metoprolol Tartrate (Lopressor) 12.5 mg PO BID [facility] Last Admin: 10/04/18 09:51 Dose: Not Given Multivitamins (Hexavitamin) 1 tab PO DAILY [facility] Last Admin: 10/04/18 09:52 Dose: 1 tab Rosuvastatin Calcium (Crestor) 20 mg PO HS [facility] Last Admin: 10/03/18 21:54 Dose: 20 mg Thiamine HCl (Vitamin B1 Tab) 100 mg PO DAILY [facility] Last Admin: 10/04/18 09:52 Dose: 100 mg Trazodone HCl (Desyrel) 50 mg PO HS [facility] Last Admin: 10/03/18 21:55 Dose: 50 mg Physical Exam - Constitutional Appears: Well, Non-toxic, No Acute Distress - Extremities Exam Additional comments: Lower extremity focused exam: VASC: DP/PT pulses palpable 2/4 B/L. CFT <3 seconds to all digits. TG warm to warm. Mild pedal edema noted to dorsal foot of bilateral LE NEURO: Gross sensation intact to RLE; absent to LLE secondary to hemiparalysis DERM: Severe xerosis + diffuse annular scaling with yellow discoloration present to entire plantar aspect of foot B/L. No open lesions noted, no drainage, no purulence. No erythema or ecchymosis present ORTHO: No tenderness elicited on palpation of plantar foot B/L. - Neurological Exam Neurological exam: Alert - Psychiatric Exam Psychiatric exam: Normal Affect, Normal Mood Results - Vital Signs Recent Vital Signs: Last Vital Signs Temp 98.1 F 10/04/18 07:00 Pulse 96 H 10/04/18 09:52 Resp 20 10/04/18 07:00 BP 92/55 L 10/04/18 09:52 Pulse Ox 95 10/04/18 07:00 - Labs Result Diagrams: 10/04/18 11:53 10/04/18 11:53 Labs: Laboratory Results - last 24 hr 10/03/18 10/03/18 10/04/18 16:31 21:32 06:50 WBC RBC Hgb Hct MCV MCH MCHC RDW Plt Count MPV Neut % (Auto) Lymph % (Auto) Hardy % (Auto) Eos % (Auto) Baso % (Auto) Neut # (Auto) Lymph # (Auto) Hardy # (Auto) Eos # (Auto) Baso # (Auto) Sodium Potassium Chloride Carbon Dioxide Anion Gap BUN Creatinine Est GFR ( Amer) Est GFR (Non-Af Amer) POC Glucose (mg/dL) 111 H 128 H 94 Random Glucose Calcium Phosphorus Magnesium Total Bilirubin AST ALT Alkaline Phosphatase Total Protein Albumin Globulin Albumin/Globulin Ratio 01/01/1710/04/18 10/04/18 11:02 11:53 11:53 WBC 5.1 RBC 3.88 L Hgb 11.2 L Hct 33.9 L MCV 87.4 MCH 28.8 MCHC 32.9 L RDW 13.5 Plt Count 294 MPV 8.9 Neut % (Auto) 46.9 L Lymph % (Auto) 34.2 Hardy % (Auto) 13.5 H Eos % (Auto) 4.0 Baso % (Auto) 1.4 Neut # (Auto) 2.4 Lymph # (Auto) 1.7 Hardy # (Auto) 0.7 Eos # (Auto) 0.2 Baso # (Auto) 0.1 Sodium 136 Potassium 3.5 L Chloride 100 Carbon Dioxide 27 Anion Gap 13 BUN 9 Creatinine 0.6 L Est GFR ( Amer) > 60 Est GFR (Non-Af Amer) > 60 POC Glucose (mg/dL) 143 H Random Glucose 131 H D Calcium 9.1 Phosphorus 3.2 Magnesium 1.9 Total Bilirubin 0.3 AST 37 ALT 43 Alkaline Phosphatase 66 Total Protein 6.8 Albumin 3.6 Globulin 3.2 Albumin/Globulin Ratio 1.1 Assessment & Plan - Assessment and Plan (Free Text) Assessment: 52 y/o male with bilateral tinea pedis to plantar feet Plan: Patient seen and evaluated at bedside Discussed plan with attending, Dr. Arias Clotrimazole cream ordered, to be applied to B/L lower extremities -to be applied by nursing topically BID Will continue to monitor patient Stable from podiatry standpoint Thank you for this consult
--- NOTE | 2018-10-04 16:31 | CP.PCM.PN ---
<Uche Vasquez - Last Filed: 10/04/18 17:03> Subjective - Date & Time of Evaluation Date of Evaluation: 10/04/18 Time of Evaluation: 07:30 - Subjective Subjective: PGY-[address] Norton service Patient is seen and examined at bedside. s/p code STAR yesterday, patient complained of pain on right lower extremity and left arm and hand . Patient states pain has improved, with minimal pain remaining in left arm and hand. Patient is eating well, with regular bowel movements and no urinary symptoms. Patient continues to have weakness of left side arm and leg. Patient stated he urinated much later today and was worried about urine retention and leg swelling. Patient denies fever, chills, chest pain, shortness of breath, n/v/d/c, abdominal pain or urinary symptoms. Objective - Vital Signs/Intake and Output Vital Signs (last 24 hours): Temp Pulse Resp BP Pulse Ox 98.1 F 96 H 20 92/55 L 95 10/04/18 07:00 10/04/18 09:52 10/04/18 07:00 10/04/18 09:52 10/04/18 07:00 - Medications Medications: Current Medications Acetaminophen (Tylenol 325mg Tab) 650 mg PO Q6 PRN PRN Reason: Pain, moderate (4-7) Last Admin: 10/04/18 13:29 Dose: 650 mg Aspirin (Ecotrin) 81 mg PO DAILY [facility] Last Admin: 10/04/18 09:52 Dose: 81 mg Clopidogrel Bisulfate (Plavix) 75 mg PO DAILY [facility] Last Admin: 10/04/18 09:52 Dose: 75 mg Clotrimazole (Lotrimin 1%) 0 gm TOP BID [facility] Docusate Sodium (Colace) 100 mg PO TID [facility] Last Admin: 10/04/18 13:29 Dose: 100 mg Folic Acid (Folic Acid) 1 mg PO DAILY [facility] Last Admin: 10/04/18 09:51 Dose: 1 mg Lactobacillus Acidophilus (Bacid Acidophilus) 1 cap PO BID [facility] Last Admin: 10/04/18 09:52 Dose: 1 cap Metoprolol Tartrate (Lopressor) 12.5 mg PO BID [facility] Last Admin: 10/04/18 09:51 Dose: Not Given Multivitamins (Hexavitamin) 1 tab PO DAILY [facility] Last Admin: 10/04/18 09:52 Dose: 1 tab Rosuvastatin Calcium (Crestor) 20 mg PO HS [facility] Last Admin: 10/03/18 21:54 Dose: 20 mg Thiamine HCl (Vitamin B1 Tab) 100 mg PO DAILY [facility] Last Admin: 10/04/18 09:52 Dose: 100 mg Trazodone HCl (Desyrel) 50 mg PO HS [facility] Last Admin: 10/03/18 21:55 Dose: 50 mg - Labs Labs: 10/04/18 11:53 10/04/18 11:53 PT 14.9 SECONDS (9.7-12.2) H 08/28/18 05:46 INR 1.4 08/28/18 05:46 APTT 26 SECONDS (21-34) 08/28/18 05:46 - Constitutional Appears: Non-toxic, No Acute Distress - Head Exam Head Exam: ATRAUMATIC, NORMAL INSPECTION, NORMOCEPHALIC - Eye Exam Eye Exam: EOMI, Normal appearance - ENT Exam ENT Exam: Mucous Membranes Moist, Normal Exam - Neck Exam Neck Exam: Full ROM, Normal Inspection - Respiratory Exam Respiratory Exam: Clear to Ausculation Bilateral, NORMAL BREATHING PATTERN. absent: Rales, Rhonchi, Wheezes - Cardiovascular Exam Cardiovascular Exam: REGULAR RHYTHM, +S1, +S2 - GI/Abdominal Exam GI & Abdominal Exam: Soft, Normal Bowel Sounds. absent: Tenderness - Extremities Exam Extremities Exam: Pedal Edema. absent: Full ROM (left upper and lower extremity weakness), Tenderness Additional comments: left plantar yellow colored, dried cutaneous crusting Left palmar and dorsal cleared colored cutaneous crusting left lower extremity 1+ pitting edema - Back Exam Back Exam: NORMAL INSPECTION - Neurological Exam Neurological Exam: Alert, Awake, Oriented x3. absent: Normal Gait - Psychiatric Exam Psychiatric exam: Normal Affect, Normal Mood - Skin Skin Exam: Dry, Intact, Normal Color, Warm Assessment and Plan - Assessment and Plan (Free Text) Plan: 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- minimal improvement with PT - Aggressive, daily PT/OT- recommend acute rehab - continue to follow up with PT - L shoulder XR: no subluxation/dislocation, no fracture - L knee immobilizer during PT/standing ONLY - PT taught exercises to patient to continue engaging passive ROM to prevent adhesive capsulitis - will follow PT recs - S[employer]IOR [employer]PLICATION SOFTWARE ENGINEER consulted- dysphagia/modified diet - Reconsulted 12/11- continue with same diet as patient cannot cut food without use of left hand, patient would like to maintain current diet order - YONNY/MAURY consulted- see disposition -working on application for disability, as patient was employed before - Turn and reposition Q2H - Daily skin checks - Code stroke 10/03/17 - patient slipped when attempting to move from chair to bed. Patient denies trauma. B/l knee Xray, Hip/abdomen xray - no fractures or dislocation Hemorrhagic conversion of R MCA ischemic CVA- suspect embolic 2/2 Afib 2/2 alcohol use - Repeated CTs of head continued to show evolution/increase of bleed - Initial CT head 08/10: There is a large on MCA branch territory infarct involving the right basal ganglia and right posterior frontoparietal region extending to the vertex with mass effect with overlying sulcal effacement, compression of the right lateral ventricle and shift of the septum pellucidum from right to left by approximately 4.9 mm. Slight dilatation of the left lateral ventricle suggesting mild early compressive effects at the level of the left foramen of Garza. No definitive evidence of acute intracranial hemorrhage. - Most recent CT head 08/29: Continued evolution hemorrhagic conversion changes of a relatively large right MCA territory branch infarct. Improved mass effect and midline shift - MRI brain 08/15: There is a relatively large subacute right MCA territory infarct with areas of hemorrhage in the basal ganglia and right posterior frontoparietal watershed zone as described. Persistent mass effect with compression of the right lateral ventricle and [id number] midline shift with septum pellucidum located approximately 11 mm to left of midline. Mild on dilatation left lateral ventricle due to mild compressive effects at the level of the left foramen of Garza. - Aspiration precautions - Seizure precautions - Lipid panel: choles 271, LDL 184, HDL 59, TG 100 - EKGs: sinus tachycardia - No Afib seen on telemetry - Echo x2: EF 60-65%, no abnormalities, no vegetations - Echo with bubble study: no thrombus, no PFO - No therapeutic anticoagulation - ASA 81 mg PO daily - Plavix 75 mg PO daily - Crestor 20 mg PO QHS - Neurosurgery consulted (Naomy)- no intervention - Neurology consulted (Shavonne/Dain)- hold anticoag but start ASA 81 and Plavix 75, signed off - Cardiology consulted (Neal)- no need for DAMIEN, okay to start ASA 81 and Plavix 75 Pulmonary embolism and LLE Deep vein thrombosis - Leukocytosis resolved - remains stable at 7.2 - D-dimer elevated (3912) - CTA chest 08/19: extensive pulmonary thromboembolism - LE Dopplers 08/19: extensive left lower extremity DVT - LLE edema with recent increase 09/09 - NO knee immobilizer while in bed - RITA stocking on LLE - No SCD on LLE - Hold therapeutic anticoagulation due to hemorrhagic stroke - IVC filter 08/20 - Hypercoagulable work-up negative - Hem/onc consulted (Mariola) - Vascular surgery consulted (Shyla)- IVC filter, RITA stocking Depression - Zoloft 50 mg PO daily - Trazodone 50 mg PO QHS - Atarax 25 mg PO Q6H PRN- not requiring - Psychiatry consulted (Sonya/Max) Constipation, currently resolved - Colace 100 mg PO TID - Prune juice PRN - Prune juice bottle seen at bedside. Left plantar side of foot - possible Athlete's foot/ fungal infection - Podiatry consult - Phillip Quinones - help is appreciated - Bilateral tinea pedis to plantar feet - Clotrimazole cream ordered, to be applied to B/L lower extremities -to be applied by nursing topically BID - Will continue to monitor patient - Stable from podiatry standpoint Sinus tachycardia, fevers, RESOLVED- suspect 2/2 PE/DVT +/- central fevers 2/2 CVA - afebrile today - No increases to rate control meds as to not lower BP (already low normal) - Procal low (0.12) - EKG: sinus tachycardia (130s)- HR now mostly 80s, occasionally 90-100s sinus - Blood Cx no growth - Repeat no growth - Echo x2: EF 60-65%, no abnormalities, no vegetations - Recent low-normal hypotensive (90-100s/60s), stable- suspect due to poor PO intake, tachycardia compensation - Lopressor 12.5 mg PO BID Low back and leg pain, stable - CPK wnl - Lidoderm patch - ALT/AST are now within normal limits - tylenol 650 Q6 PRN for pain Alcohol use disorder, chronic - MV daily - Thiamine 100 mg PO daily - Folate 1 mg PO daily - Cessation counseling Marijuana use disorder, chronic - UDS positive - Cessation counseling Syncope, resolved- likely vasovagal - FENCE INSTALLER 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 Patchy increased markings at the left lung base with small left pleural effusion. Small nodular density projects over the left lung apex. Cardiomegaly. - Repeat CXR 08/20: no active disease - Lactobacillus acidophilus BID Urinary tract infection, resolved - Urine Cx: Enterococcus faecalis - Repeat no growth - Finished 5 day course of Cipro 400 mg IV Q12H - Repeat UA, Cx negative Scrotal pain, resolved - Testicular u/s: b/l scrotal thickening Ppx: VTE: contraindicated, only SCD to RLE, RITA stocking to LLE dysphagia/modified consistent diet supplements diet Code status: full code DISPO: As per conversation with Friend Charles Martinez who was at bedside yesterday 10/03/2018, along with litigation manager Krista, and SW Edwina, Mr Martinez has decided to be [place]'s endoscopy tech [place], as two previous friends could not be patient;s endoscopy tech on this trip back to the [place]. However, Mr Martinez has an passport, which he has renewed the day before and states he will have his up to date passport in 2 days. Mr Martinez showed us a receipt that he paid for the passport renewal. Patient's passport is up to date, as per Mr Martinez, who has possesion of his passport or patient's identification. Mr Martinez and Patient state that [place] the [place], Mr Aguayo will be picked up by his son who is a 911 staff member in the [place] and will pick him up in an ambulance. Mr Aguayo states he is going to his '[place] house in the [place]. As per litigation manager and SW, Mr Martinez is to bring his and Mr Delgado passport, as well as the money that was collected for patient's ticket, and hospital will be providing the economic resources for patient's ticket to be bought. both tickets, patient's and friends to be bought together, with the verification of both passport. Patient's son name is Pita, lives in the - phone number [phone]. Mr Martinez's phone number [phone]. Will continue to follow up with Mr Martinez, SW and CM on this case. Plan discussed with Dr Cierra Vasquez, PGY-1 <Mariel Norton V - Last Filed: 10/13/18 16:48> Objective - Vital Signs/Intake and Output Vital Signs (last 24 hours): Temp Pulse Resp BP Pulse Ox 98.0 F 79 20 124/82 98 10/13/18 09:26 10/13/18 09:26 10/13/18 09:26 10/13/18 09:26 10/13/18 09:26 - Labs Labs: 10/11/18 07:55 10/11/18 07:56 PT 14.9 SECONDS (9.7-12.2) H 08/28/18 05:46 INR 1.4 08/28/18 05:46 APTT 26 SECONDS (21-34) 08/28/18 05:46 Assessment and Plan (1) Arterial ischemic stroke, MCA (middle cerebral artery), right, acute Status: Acute (2) ETOH abuse Status: Chronic (3) Impaired glucose tolerance Status: Acute (4) Lipid disorder Status: Acute (5) Leukocytosis Status: Acute (6) DVT (deep venous thrombosis) Status: Acute (7) Pulmonary embolism Status: Acute (8) Prophylactic measure Status: Acute Attending/Attestation - Attestation I have personally seen and examined this patient.: Yes I have fully participated in the care of the patient.: Yes I have reviewed all pertinent clinical information, including history, physical exam and plan: Yes
[2018-10-04] MEDS ORDERED: Potassium Chloride 20 mEq ER Tab PO ONE (17:12)
[2018-10-04] MEDS: Clotrimazole 1% Cream(30 gm) TOP SCH (22:14)
[2018-10-05] MEDS: Multiple Vitamins Tab PO SCH (10:14)
[2018-10-05] MEDS: Lactobacillus Acidophilus 500 MU Cap PO SCH ×2 (10:15→18:44)
[2018-10-05] MEDS: Clotrimazole 1% Cream(30 gm) TOP SCH ×2 (10:16→18:44)
[2018-10-06] MEDS: Multiple Vitamins Tab PO SCH (10:21)
[2018-10-06] MEDS: Clotrimazole 1% Cream(30 gm) TOP SCH ×2 (10:22→18:28)
[2018-10-06] MEDS: Lactobacillus Acidophilus 500 MU Cap PO SCH ×2 (10:22→18:28)
[2018-10-07 00:37] LABS: URINE BACTERIA RARE (<OCC); URINE BILIRUBIN NEGATIVE (NEGATIVE); URINE BLOOD NEGATIVE (NEGATIVE); URINE CLARITY Clear (Clear); URINE COLOR Yellow (YELLOW); URINE GLUCOSE (UA) NORMAL (Normal); URINE LEUKOCYTE ESTERASE NEG Leu/uL (Negative); URINE PROTEIN NEGATIVE (NEGATIVE); URINE UROBILINOGEN NORMAL mg/dL (0.2-1.0)
[2018-10-07] MEDS: Multiple Vitamins Tab PO SCH (10:46)
[2018-10-07] MEDS: Lactobacillus Acidophilus 500 MU Cap PO SCH ×2 (10:46→18:11)
[2018-10-07] MEDS: Clotrimazole 1% Cream(30 gm) TOP SCH ×2 (10:47→21:42)
[2018-10-07 11:38] LABS: BASO % 0.7 % (0.0-2.0); EOS # 0.2 K/uL (0.0-0.7); EOS % 3.2 % (0.0-4.0); HEMOGLOBIN 12.1 g/dL (12.0-18.0); LYMPH # 1.9 K/uL (1.0-4.3); LYMPH % 28.6 % (20.0-40.0); MEAN CELL VOLUME 87.4 fL (80.0-94.0); MEAN CORPUSCULAR HEMOGLOBIN 28.5 pg (27.0-31.0); MEAN CORPUSCULAR HGB CONC 32.6 g/dL (33.0-37.0); MEAN PLATELET VOLUME 8.8 fL (7.2-11.7); MONO # 0.9 K/uL (0.0-0.8); MONO % 13.6 % (0.0-10.0); NEUT # 3.5 K/uL (1.8-7.0); NEUT % 53.9 % (50.0-75.0); RBC 4.24 Mil/uL (4.40-5.90); RED CELL DISTRIBUTION WIDTH 13.9 % (11.5-14.5); WHITE BLOOD COUNT 6.5 K/uL (4.8-10.8)
[2018-10-07 12:06] LABS: ALB/GLOB RATIO 1.2 (1.0-2.1); ALBUMIN 4.1 g/dL (3.5-5.0); ALT/SGPT 60 U/L (21-72); AST/SGOT 58 U/L (17-59); BLOOD UREA NITROGEN 8 mg/dL (9-20); CALCIUM 9.4 mg/dl (8.6-10.4); GFR NON-AFRICAN AMERICAN > 60
--- NOTE | 2018-10-07 17:15 | US ---
Date of service: 10/07/2018 PROCEDURE: Ultrasound of the Kidneys HISTORY: urinary retention COMPARISON: None available. TECHNIQUE: Sonogram of the kidneys. FINDINGS: RIGHT KIDNEY: Measures: 11.2 x 6.1 x 5.5 cm. Suspected column of Edgardo on the right. No obstructing calculus, hydronephrosis, or renal cyst identified. LEFT KIDNEY: Measures: 10.8 x 5.6 x 6.1 cm. No obstructing calculus or hydronephrosis identified. 1.1 X 1.1 x 1.0 cm cyst. OTHER FINDINGS: None. IMPRESSION: No obstructing calculus or hydronephrosis identified. 1.1 cm left renal cyst. Probable right-sided column of Edgardo. CT or MRI may be considered for confirmation.
--- NOTE | 2018-10-07 17:24 | CP.PCM.PN ---
<Uche Vasquez - Last Filed: 10/07/18 20:18> Subjective - Date & Time of Evaluation Date of Evaluation: 10/07/18 Time of Evaluation: 07:00 - Subjective Subjective: PGY-[address] [place]ro[place] Service Patient is seen and examined at bedside. Patient complaining of not being able to urinate since yesterday morning. Patient is not currently under discomfort and does not report any abdominal or suprapubic pain. Patient admits to being constipated for the past two days. Patient was straight cath last night after bladder scan showed +900 cc of urine retained. Patient continues experiencing weakness on left side of Upper and lower extremity. Patient denies fevers, chills, chest pain, SOB, N/V/D, leg pain or swelling. Objective - Vital Signs/Intake and Output Vital Signs (last 24 hours): Temp Pulse Resp BP Pulse Ox 97.6 F 89 20 102/68 96 10/07/18 08:35 10/07/18 10:45 10/07/18 08:35 10/07/18 10:45 10/07/18 08:35 Intake and Output: 10/07/18 10/07/18 06:59 18:59 Intake Total 300 900 Output Total 1780 800 Balance -1480 100 - Medications Medications: Current Medications Acetaminophen (Tylenol 325mg Tab) 650 mg PO Q6 PRN PRN Reason: Pain, moderate (4-7) Last Admin: 10/04/18 13:29 Dose: 650 mg Aspirin (Ecotrin) 81 mg PO DAILY [facility] Last Admin: 10/07/18 10:46 Dose: 81 mg Clopidogrel Bisulfate (Plavix) 75 mg PO DAILY [facility] Last Admin: 10/07/18 10:46 Dose: 75 mg Clotrimazole (Lotrimin 1%) 0 gm TOP BID [facility] Last Admin: 10/07/18 10:47 Dose: 1 applic Docusate Sodium (Colace) 100 mg PO TID [facility] Last Admin: 10/07/18 13:35 Dose: 100 mg Folic Acid (Folic Acid) 1 mg PO DAILY [facility] Last Admin: 10/07/18 10:47 Dose: 1 mg Lactobacillus Acidophilus (Bacid Acidophilus) 1 cap PO BID [facility] Last Admin: 10/07/18 10:46 Dose: 1 cap Metoprolol Tartrate (Lopressor) 12.5 mg PO BID [facility] Last Admin: 10/07/18 17:16 Dose: Not Given Multivitamins (Hexavitamin) 1 tab PO DAILY [facility] Last Admin: 10/07/18 10:46 Dose: 1 tab Rosuvastatin Calcium (Crestor) 20 mg PO [facility] Last Admin: 10/06/18 21:50 Dose: 20 mg Sertraline HCl (Zoloft) 50 mg PO DAILY [facility] Last Admin: 10/07/18 10:46 Dose: 50 mg Thiamine HCl (Vitamin B1 Tab) 100 mg PO DAILY [facility] Last Admin: 10/07/18 10:46 Dose: 100 mg Trazodone HCl (Desyrel) 50 mg PO [facility] Last Admin: 10/06/18 21:49 Dose: 50 mg - Labs Labs: 10/07/18 11:25 10/07/18 11:25 PT 14.9 SECONDS (9.7-12.2) H 08/28/18 05:46 INR 1.4 08/28/18 05:46 APTT 26 SECONDS (21-34) 08/28/18 05:46 - Constitutional Appears: Non-toxic, No Acute Distress - Head Exam Head Exam: ATRAUMATIC, NORMAL INSPECTION, NORMOCEPHALIC - Eye Exam Eye Exam: EOMI, Normal appearance - ENT Exam ENT Exam: Mucous Membranes Moist, Normal Exam - Neck Exam Neck Exam: Full ROM - Respiratory Exam Respiratory Exam: Clear to Ausculation Bilateral, NORMAL BREATHING PATTERN. absent: Rales, Rhonchi, Wheezes - Cardiovascular Exam Cardiovascular Exam: REGULAR RHYTHM, +S1, +S2 - GI/Abdominal Exam GI & Abdominal Exam: Distended (suprapubic distention ), Normal Bowel Sounds. absent: Tenderness - Rectal Exam Rectal Exam: NORMAL INSPECTION. absent: Black Stool, Bloody Stool, Hemorrhoids, Fecal Impaction - Extremities Exam Extremities Exam: absent: Full ROM (left side hemiparesis ) Additional comments: left sole of feet yellowish crusting - Back Exam Back Exam: Full ROM, NORMAL INSPECTION - Neurological Exam Neurological Exam: Alert, Awake, Oriented x3. absent: Normal Gait - Psychiatric Exam Psychiatric exam: Flat Affect, Normal Mood - Skin Skin Exam: Dry, Normal Color, Warm Additional comments: peeling skin on left hand and right forearm Assessment and Plan - Assessment and Plan (Free Text) Plan: 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- minimal improvement with PT - Aggressive, daily PT/OT- recommend acute rehab - continue to follow up with PT - L shoulder XR: no subluxation/dislocation, no fracture - L knee immobilizer during PT/standing ONLY - PT taught exercises to patient to continue engaging passive ROM to prevent adhesive capsulitis - will follow PT recs - PLATING FOREMAN consulted- dysphagia/modified diet - Reconsulted 09/10- continue with same diet as patient cannot cut food without use of left hand, patient would like to maintain current diet order - SW/AMURY consulted- see disposition -working on application for disability, as patient was employed before - Turn and reposition Q2H - Daily skin checks - Code stroke 10/03/17 - patient slipped when attempting to move from chair to bed. Patient denies trauma. B/l knee Xray, Hip/abdomen xray - no fractures or dislocation Hemorrhagic conversion of R MCA ischemic CVA- suspect embolic 2/2 Afib 2/2 alcohol use - Repeated CTs of head continued to show evolution/increase of bleed - Initial CT head 08/10: There is a large on MCA branch territory infarct involving the right basal ganglia and right posterior frontoparietal region extending to the vertex with mass effect with overlying sulcal effacement, compression of the right lateral ventricle and shift of the septum pellucidum from right to left by approximately 4.9 mm. Slight dilatation of the left lateral ventricle suggesting mild early compressive effects at the level of the left foramen of Gazra. No definitive evidence of acute intracranial he morrhage. - Most recent CT head 08/29: Continued evolution hemorrhagic conversion changes of a relatively large right MCA territory branch infarct. Improved mass effect and midline shift - MRI brain 08/15: There is a relatively large subacute right MCA territory infarct with areas of hemorrhage in the basal ganglia and right posterior frontoparietal watershed zone as described. Persistent mass effect with compression of the right lateral ventricle and [id number] midline shift with septum pellucidum located approximately 11 mm to left of midline. Mild on dilatation left lateral ventricle due to mild compressive effects at the level of the left foramen of Garza. - Aspiration precautions - Seizure precautions - Lipid panel: choles 271, LDL 184, HDL 59, TG 100 - EKGs: sinus tachycardia - No Afib seen on telemetry - Echo x2: EF 60-65%, no abnormalities, no vegetations - Echo with bubble study: no thrombus, no PFO - No therapeutic anticoagulation - ASA 81 mg PO daily - Plavix 75 mg PO daily - Crestor 20 mg PO QHS - Neurosurgery consulted (Naomy)- no intervention - Neurology consulted (Shavonne/Dain)- hold anticoag but start ASA 81 and Plavix 75, signed off - Cardiology consulted (Neal)- no need for DAMIEN, okay to start ASA 81 and Plavix 75 Pulmonary embolism and LLE Deep vein thrombosis - Leukocytosis resolved - remains stable at 7.2 - D-dimer elevated (3912) - CTA chest 08/19: extensive pulmonary thromboembolism - LE Dopplers 08/19: extensive left lower extremity DVT - LLE edema with recent increase 09/09 - NO knee immobilizer while in bed - RITA stocking on LLE - No SCD on LLE - Hold therapeutic anticoagulation due to hemorrhagic stroke - IVC filter 08/20 - Hypercoagulable work-up negative - Hem/onc consulted (Mariola) - Vascular surgery consulted (Shyla)- IVC filter, RITA stocking Urinary retention - not on anticholinergic meds -10/06: 968 cc bladder scan - am of 10/07: 688ml - U/A - wnl - Urine Cx - pending - f/u - Bladder scan TID - Bach catheter ONCE - patient is currently refusing due to voiding in the pm today about 500 cc on his own. Patient has stated he wants to urinate more on his own. will continue to follow up with patient. - PSA levels - f/u am labs - Renal U/S - f/u - Urology consult - Dr Bill Ziegler (Dr Ann-Marie Ziegler covering) - Flomax 0.4 mg PO QD - Rectal examination - to look for fecal impaction, enlarge prostate - no significant findings - Bach catheter - f/u PSA levels Depression - Zoloft 50 mg PO daily - Trazodone 50 mg PO QHS - Atarax 25 mg PO Q6H PRN- not requiring - Psychiatry consulted (Sonya/Max) Constipation - previously constipated for 3 days - patient continue taking prune juice - patient had BM this afternoon - continue Colace 100 mg PO TID - Prune juice PRN - Prune juice bottles seen at bedside. Left plantar side of foot - possible Athlete's foot/ fungal infection - Podiatry consult - Phillip Quinones - help is appreciated - Bilateral tinea pedis to plantar feet - Clotrimazole cream ordered, to be applied to B/L lower extremities -to be applied by nursing topically BID - Will continue to monitor patient - Stable from podiatry standpoint Sinus tachycardia, fevers, RESOLVED- suspect 2/2 PE/DVT +/- central fevers 2/2 CVA - afebrile today - No increases to rate control meds as to not lower BP (already low normal) - Procal low (0.12) - EKG: sinus tachycardia (130s)- HR now mostly 80s, occasionally 90-100s sinus - Blood Cx no growth - Repeat no growth - Echo x2: EF 60-65%, no abnormalities, no vegetations - Recent low-normal hypotensive (90-100s/60s), stable- suspect due to poor PO intake, tachycardia compensation - Lopressor 12.5 mg PO BID Low back and leg pain, stable - CPK wnl - Lidoderm patch - ALT/AST are now within normal limits - tylenol 650 Q6 PRN for pain Alcohol use disorder, chronic - MV daily - Thiamine 100 mg PO daily - Folate 1 mg PO daily - Cessation counseling Marijuana use disorder, chronic - UDS positive - Cessation counseling Syncope, resolved- likely vasovagal - SHEARER HELPER 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 Patchy increased markings at the left lung base with small left pleural effusion. Small nodular density projects over the left lung apex. Cardiomegaly. - Repeat CXR 08/20: no active disease - Lactobacillus acidophilus BID Urinary tract infection, resolved - Urine Cx: Enterococcus faecalis - Repeat no growth - Finished 5 day course of Cipro 400 mg IV Q12H - Repeat UA, Cx negative - UA 10/07 - negative - f/u UCx Scrotal pain, resolved - Testicular u/s: b/l scrotal thickening Ppx: VTE: contraindicated, only SCD to RLE, RITA stocking to LLE dysphagia/modified consistent diet supplements diet Code status: full code Dispo: Will continue to follow up with SW/MAURY and patient's friend Mr Martinez regarding patient's plan to return to [place]. Will assist SW with translation when contacting patient's family in the [place]. Plan discussed with Dr Cierra Vasquez, PGY-1 <Mariel Norton V - Last Filed: 10/13/18 16:49> Objective - Vital Signs/Intake and Output Vital Signs (last 24 hours): Temp Pulse Resp BP Pulse Ox 98.0 F 79 20 124/82 98 10/13/18 09:26 10/13/18 09:26 10/13/18 09:26 10/13/18 09:26 10/13/18 09:26 - Labs Labs: 10/11/18 07:55 10/11/18 07:56 PT 14.9 SECONDS (9.7-12.2) H 08/28/18 05:46 INR 1.4 08/28/18 05:46 APTT 26 SECONDS (21-34) 08/28/18 05:46 Assessment and Plan (1) Arterial ischemic stroke, MCA (middle cerebral artery), right, acute Status: Acute (2) ETOH abuse Status: Chronic (3) Impaired glucose tolerance Status: Acute (4) Lipid disorder Status: Acute (5) Leukocytosis Status: Acute (6) DVT (deep venous thrombosis) Status: Acute (7) Pulmonary embolism Status: Acute (8) Prophylactic measure Status: Acute Attending/Attestation - Attestation I have personally seen and examined this patient.: Yes I have fully participated in the care of the patient.: Yes I have reviewed all pertinent clinical information, including history, physical exam and plan: Yes Notes (Text): This is late computer entry for 10/07/18. Patient seen, examined, and case discussed. Patient noted urinary retention. Urology consulted. Recommended for bach, c/w flomax. patient refuses bach. patient awaiting placement since does not have insurance to afford rehab.
--- NOTE | 2018-10-07 17:30 | CP.PCM.PCO ---
Physician Communication Note - Physician Communication Note Physician Communication Note: please see above
--- NOTE | 2018-10-08 06:50 | CP.PCM.PN ---
<Uche Vasquez - Last Filed: 10/08/18 13:46> Subjective - Date & Time of Evaluation Date of Evaluation: 10/08/18 Time of Evaluation: 08:00 - Subjective Subjective: PGY-[address] Norton Service Patient is seen and examined at bedside. Patient reports feeling well. Patient states having been able to urinate on the urinal found at bedside. As per nurse, patient urinated about 1600cc of urine in the evening, and 400 cc this morning. Patient denies any pain, or burning when urinating. Admits to having one bowel movement yesterday, but no BM today. Patient mentions noticing his legs to be less swollen as previous days. Patient denies any fever, chills, chest pain, shortness of breath, abdominal pain, n/v/d/c. Objective - Vital Signs/Intake and Output Vital Signs (last 24 hours): Temp Pulse Resp BP Pulse Ox 98.3 F 83 20 100/65 97 10/08/18 00:02 10/08/18 00:02 10/08/18 00:02 10/08/18 00:02 10/08/18 00:02 Intake and Output: 10/07/18 10/08/18 18:59 06:59 Intake Total 900 1750 Output Total 800 2050 Balance 100 -300 - Medications Medications: Current Medications Acetaminophen (Tylenol 325mg Tab) 650 mg PO Q6 PRN PRN Reason: Pain, moderate (4-7) Last Admin: 10/07/18 19:25 Dose: 650 mg Aspirin (Ecotrin) 81 mg PO DAILY [facility] Last Admin: 10/07/18 10:46 Dose: 81 mg Clopidogrel Bisulfate (Plavix) 75 mg PO DAILY [facility] Last Admin: 10/07/18 10:46 Dose: 75 mg Clotrimazole (Lotrimin 1%) 0 gm TOP BID [facility] Last Admin: 10/07/18 21:42 Dose: 1 applic Docusate Sodium (Colace) 100 mg PO TID [facility] Last Admin: 10/07/18 18:11 Dose: 100 mg Folic Acid (Folic Acid) 1 mg PO DAILY [facility] Last Admin: 10/07/18 10:47 Dose: 1 mg Lactobacillus Acidophilus (Bacid Acidophilus) 1 cap PO BID [facility] Last Admin: 10/07/18 18:11 Dose: 1 cap Metoprolol Tartrate (Lopressor) 12.5 mg PO BID [facility] Last Admin: 10/07/18 17:16 Dose: Not Given Multivitamins (Hexavitamin) 1 tab PO DAILY [facility] Last Admin: 10/07/18 10:46 Dose: 1 tab Rosuvastatin Calcium (Crestor) 20 mg PO HS [facility] Last Admin: 10/07/18 21:41 Dose: 20 mg Sertraline HCl (Zoloft) 50 mg PO DAILY [facility] Last Admin: 10/07/18 10:46 Dose: 50 mg Thiamine HCl (Vitamin B1 Tab) 100 mg PO DAILY [facility] Last Admin: 10/07/18 10:46 Dose: 100 mg Trazodone HCl (Desyrel) 50 mg PO [facility] Last Admin: 10/07/18 21:41 Dose: 50 mg - Labs Labs: 10/07/18 11:25 10/07/18 11:25 PT 14.9 SECONDS (9.7-12.2) H 08/28/18 05:46 INR 1.4 08/28/18 05:46 APTT 26 SECONDS (21-34) 08/28/18 05:46 - Constitutional Appears: Non-toxic, No Acute Distress - Head Exam Head Exam: ATRAUMATIC, NORMAL INSPECTION, NORMOCEPHALIC - Eye Exam Eye Exam: EOMI, Normal appearance - ENT Exam ENT Exam: Mucous Membranes Moist, Normal Exam - Neck Exam Neck Exam: Full ROM, Normal Inspection - Respiratory Exam Respiratory Exam: Clear to Ausculation Bilateral, NORMAL BREATHING PATTERN. absent: Rales, Rhonchi, Wheezes - Cardiovascular Exam Cardiovascular Exam: Tachycardia, REGULAR RHYTHM, +S1, +S2 - GI/Abdominal Exam GI & Abdominal Exam: Distended (mild distention suprapubic area, improved ), Soft, Normal Bowel Sounds. absent: Rigid, Tenderness - Extremities Exam Extremities Exam: Pedal Edema. absent: Full ROM, Tenderness Additional comments: LE pitting edema on left leg - Back Exam Back Exam: NORMAL INSPECTION - Neurological Exam Neurological Exam: Alert, Awake, CN II-XII Intact, Oriented x3. absent: Normal Gait - Psychiatric Exam Psychiatric exam: Flat Affect, Normal Mood - Skin Skin Exam: Dry, Warm Additional comments: left sole of foot yellow crusting Assessment and Plan - Assessment and Plan (Free Text) Plan: Plan: 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- minimal improvement with PT - Aggressive, daily PT/OT- recommend acute rehab - continue to follow up with PT - L shoulder XR: no subluxation/dislocation, no fracture - L knee immobilizer during PT/standing ONLY - PT taught exercises to patient to continue engaging passive ROM to prevent adhesive capsulitis - will follow PT recs - BISCUIT MAKER consulted- dysphagia/modified diet - Reconsulted 09/10- continue with same diet as patient cannot cut food without use of left hand, patient would like to maintain current diet order - SW/MAURY consulted- see disposition -working on application for disability, as patient was employed before - Code stroke 10/03/17 - patient slipped when attempting to move from chair to bed. Patient denies trauma. 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 Slight dilatation of the left lateral ventricle suggesting mild early compressive effects at the level of the left foramen of Garza. No definitive evidence of acute intracranial hemo rrhage. - Most recent CT head 08/29: Continued evolution hemorrhagic conversion changes of a relatively large right MCA territory branch infarct. Improved mass effect and midline shift - MRI brain 08/15: There is a relatively large subacute right MCA territory infarct with areas of hemorrhage in the basal ganglia and right posterior frontoparietal watershed zone as described. Persistent mass effect with compression of the right lateral ventricle and [id number] midline shift with septum pellucidum located approximately 11 mm to left of midline. Mild on dilatation left lateral ventricle due to mild compressive effects at the level of the left foramen of Garza. - Aspiration precautions - Seizure precautions - Lipid panel: choles 271, LDL 184, HDL 59, TG 100 - EKGs: sinus tachycardia - No Afib seen on telemetry - Echo x2: EF 60-65%, no abnormalities, no vegetations - Echo with bubble study: no thrombus, no PFO - No therapeutic anticoagulation - Neurosurgery consulted (Naomy)- no intervention - Neurology consulted (Shavonne/Dain)- hold anticoag but start ASA 81 and Plavix 75, signed off - Cardiology consulted (Neal)- no need for DAMIEN, okay to start ASA 81 and Plavix 75 -Meds: - ASA 81 mg PO daily - Plavix 75 mg PO daily - Crestor 20 mg PO QHS Pulmonary embolism and LLE Deep vein thrombosis - Leukocytosis resolved - remains stable at 7.2 - D-dimer elevated (3912) - CTA chest 08/19: extensive pulmonary thromboembolism - LE Dopplers 08/19: extensive left lower extremity DVT - LLE edema with recent increase 09/09 - NO knee immobilizer while in bed - RITA stocking on LLE - No SCD on LLE - Hold therapeutic anticoagulation due to hemorrhagic stroke - IVC filter 08/20 - Hypercoagulable work-up negative - Hem/onc consulted (Mariola) - Vascular surgery consulted (Shyla)- IVC filter, RITA stocking Urinary retention -Patient voiding on its own, 1600 cc in the evening 10/07 and 400 cc in the am of 10/08 - as reported by nurse - U/A - wnl - Urine Cx, catheterized - no growth - Bladder scan TID - Cortez catheter ONCE - patient is currently refusing since patient is voiding. f/u urology recs - PSA levels - f/u - Renal U/S - no obstructing calculus or hydronephrosis identified. 1.1cm left renal cyst, probable right sided column of elizabeth. - Flomax 0.4 mg PO QD - Urology consult - Dr Bill Ziegler (Dr Ann-Marie Ziegler covering) - f/u recs Depression - Zoloft 50 mg PO daily - Trazodone 50 mg PO QHS Constipation - continue to monitor - continue Colace 100 mg PO TID - Prune juice PRN - Prune juice bottles seen at bedside. Left plantar side of foot - tinea pedis - Podiatry consult - Phillip Quinones - help is appreciated - Bilateral tinea pedis to plantar feet - Clotrimazole cream ordered, to be applied to B/L lower extremities -to be applied by nursing topically BID - Will continue to monitor patient - Stable from podiatry standpoint Sinus tachycardia, fevers, RESOLVED- suspect 2/2 PE/DVT +/- central fevers 2/2 CVA - No increases to rate control meds as to not lower BP (already low normal) - Procal low (0.12) - EKG: sinus tachycardia (130s)- HR now mostly 80s, occasionally 90-100s sinus - Blood Cx no growth - Repeat no growth - Echo x2: EF 60-65%, no abnormalities, no vegetations - Recent low-normal hypotensive (90-100s/60s), stable- suspect due to poor PO intake, tachycardia compensation - Lopressor 12.5 mg PO BID Low back and leg pain, resolved - tylenol 650 Q6 PRN for pain Alcohol use disorder, chronic - MV daily - Thiamine 100 mg PO daily - Folate 1 mg PO daily - Cessation counseling Marijuana use disorder, chronic - UDS positive - Cessation counseling Syncope, resolved- likely vasovagal - SPECIALTY DEPARTMENT SUPERVISOR 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 Patchy increased markings at the left lung base with small left pleural effusion. Small nodular density projects over the left lung apex. Cardiomegaly. - Repeat CXR 08/20: no active disease - Lactobacillus acidophilus BID Urinary tract infection, resolved - Urine Cx: Enterococcus faecalis - Repeat no growth - Finished 5 day course of Cipro 400 mg IV Q12H - Repeat UA, Cx negative - UA 10/07 - negative - f/u UCx Scrotal pain, resolved - Testicular u/s: b/l scrotal thickening Ppx: VTE: contraindicated, only SCD to RLE, RITA stocking to LLE dysphagia/modified consistent diet supplements diet Code status: full code Dispo: Will continue to follow up with YONNY/MAURY and patient's friend Mr Martinez regarding patient's plan to return to Will assist SW with translation when contacting patient's family in the [place] Plan discussed with Dr Cierra Vasquez, PGY-1 <Mariel Norton V - Last Filed: 10/13/18 16:49> Objective - Vital Signs/Intake and Output Vital Signs (last 24 hours): Temp Pulse Resp BP Pulse Ox 98.0 F 79 20 124/82 98 10/13/18 09:26 10/13/18 09:26 10/13/18 09:26 10/13/18 09:26 10/13/18 09:26 - Labs Labs: 10/11/18 07:55 10/11/18 07:56 PT 14.9 SECONDS (9.7-12.2) H 08/28/18 05:46 INR 1.4 08/28/18 05:46 APTT 26 SECONDS (21-34) 08/28/18 05:46 Assessment and Plan (1) Arterial ischemic stroke, MCA (middle cerebral artery), right, acute Status: Acute (2) ETOH abuse Status: Chronic (3) Impaired glucose tolerance Status: Acute (4) Lipid disorder Status: Acute (5) Leukocytosis Status: Acute (6) DVT (deep venous thrombosis) Status: Acute (7) Pulmonary embolism Status: Acute (8) Prophylactic measure Status: Acute Attending/Attestation - Attestation I have personally seen and examined this patient.: Yes I have fully participated in the care of the patient.: Yes I have reviewed all pertinent clinical information, including history, physical exam and plan: Yes
[2018-10-08] MEDS: Multiple Vitamins Tab PO SCH (10:20)
[2018-10-08] MEDS: Lactobacillus Acidophilus 500 MU Cap PO SCH ×2 (10:20→21:00)
[2018-10-08] MEDS: Clotrimazole 1% Cream(30 gm) TOP SCH ×2 (10:21→22:27)
--- NOTE | 2018-10-09 10:46 | CP.PCM.PN ---
Subjective - Date & Time of Evaluation Date of Evaluation: 10/09/18 Time of Evaluation: 13:00 - Subjective Subjective: Podiatry PRogress Note- Dr. Arias 52 y/o male f/u for bilateral tinea pedis. Patient seen resting comfortably in bed, in NAD, and AA0x3. Patient denies of pain or problems to the bilateral feet. Reports that antifungal cream has been applied daily. Reports seeing improvements to the bilateral feet. No other pedal complaints. Denies fever, chills, nausea, vomiting, chest pain or shortness of breath Objective - Vital Signs/Intake and Output Vital Signs (last 24 hours): Temp Pulse Resp BP Pulse Ox 98.4 F 86 20 92/57 L 95 10/08/18 23:15 10/08/18 23:15 10/08/18 23:15 10/08/18 23:15 10/08/18 23:15 Intake and Output: 10/09/18 10/09/18 06:59 18:59 Intake Total 300 Output Total 400 Balance -100 - Medications Medications: Current Medications Acetaminophen (Tylenol 325mg Tab) 650 mg PO Q6 PRN PRN Reason: Pain, moderate (4-7) Last Admin: 10/08/18 17:45 Dose: 650 mg Aspirin (Ecotrin) 81 mg PO DAILY [facility] Last Admin: 10/08/18 10:21 Dose: 81 mg Clopidogrel Bisulfate (Plavix) 75 mg PO DAILY [facility] Last Admin: 10/08/18 10:20 Dose: 75 mg Clotrimazole (Lotrimin 1%) 0 gm TOP BID [facility] Last Admin: 10/08/18 22:27 Dose: 1 applic Docusate Sodium (Colace) 100 mg PO TID [facility] Last Admin: 10/08/18 17:46 Dose: 100 mg Folic Acid (Folic Acid) 1 mg PO DAILY [facility] Last Admin: 10/08/18 10:20 Dose: 1 mg Lactobacillus Acidophilus (Bacid Acidophilus) 1 cap PO BID [facility] Last Admin: 10/08/18 21:00 Dose: 1 cap Metoprolol Tartrate (Lopressor) 12.5 mg PO BID [facility] Last Admin: 10/08/18 22:02 Dose: Not Given Multivitamins (Hexavitamin) 1 tab PO DAILY [facility] Last Admin: 10/08/18 10:20 Dose: 1 tab Rosuvastatin Calcium (Crestor) 20 mg PO HS [facility] Last Admin: 10/08/18 22:02 Dose: 20 mg Sertraline HCl (Zoloft) 50 mg PO DAILY [facility] Last Admin: 10/08/18 10:20 Dose: 50 mg Thiamine HCl (Vitamin B1 Tab) 100 mg PO DAILY [facility] Last Admin: 10/08/18 10:21 Dose: 100 mg Trazodone HCl (Desyrel) [address] [facility] Last Admin: 10/08/18 22:02 Dose: 50 mg - Labs Labs: 10/07/18 11:25 10/07/18 11:25 PT 14.9 SECONDS (9.7-12.2) H 08/28/18 05:46 INR 1.4 08/28/18 05:46 APTT 26 SECONDS (21-34) 08/28/18 05:46 - Constitutional Appears: Well, Non-toxic, No Acute Distress - Extremities Exam Extremities Exam: absent: Calf Tenderness Additional comments: Lower extremity focused exam: VASC: DP/PT pulses palpable 2/4 B/L. CFT <3 seconds to all digits. TG warm to warm. Mild pedal edema noted to dorsal foot of bilateral LE NEURO: Gross sensation intact to RLE; absent to LLE secondary to hemiparalysis DERM: Severe xerosis + diffuse annular scaling with yellow discoloration present to entire plantar aspect of foot B/L- improved. No open lesions noted, no drainage, no purulence. No erythema or ecchymosis present ORTHO: No tenderness elicited on palpation of plantar foot B/L. - Psychiatric Exam Psychiatric exam: Normal Affect, Normal Mood Assessment and Plan - Assessment and Plan (Free Text) Assessment: 52 y/o male with bilateral tinea pedis to plantar feet- stable, improving Plan: Patient seen and evaluated at bedside Discussed plan with attending, Dr. Arias Applied Clotrimazole cream C/w Clotrimazole cream be applied to B/L lower extremities -to be applied by nursing topically BID Will continue to monitor patient Stable from podiatry standpoint Upon discharge, patient will follow up with Dr. Arias in his office Continue to use Clotrimazole cream BID topically to affected feet on outpatient basis
[2018-10-09] MEDS ORDERED: Bisacodyl 5mg EC Tab PO ONE (11:07)
[2018-10-09] MEDS: Clotrimazole 1% Cream(30 gm) TOP SCH ×2 (11:12→21:21)
[2018-10-09] MEDS: Multiple Vitamins Tab PO SCH (11:12)
[2018-10-09] MEDS: Lactobacillus Acidophilus 500 MU Cap PO SCH ×2 (11:12→17:52)
--- NOTE | 2018-10-09 11:12 | CP.PCM.PN ---
Subjective - Date & Time of Evaluation Date of Evaluation: 10/09/18 Time of Evaluation: 07:25 - Subjective Subjective: PGY-[address] Kimball Service Patient is seen and examined at bedside. Patient reports feeling well. States he hasn't has a BM in 3 days, however as per nursing, he had a BM yesterday. Patient had 500cc of urine output overnight. Denies dysuria, hematuria, fever, chills, chest pain, shortness of breath, abdominal pain, n/v/d. Objective - Vital Signs/Intake and Output Vital Signs (last 24 hours): Temp Pulse Resp BP Pulse Ox 98.4 F 86 20 92/57 L 95 10/08/18 23:15 10/08/18 23:15 10/08/18 23:15 10/08/18 23:15 10/08/18 23:15 Intake and Output: 10/09/18 10/09/18 06:59 18:59 Intake Total 300 Output Total 400 Balance -100 - Medications Medications: Current Medications Acetaminophen (Tylenol 325mg Tab) 650 mg PO Q6 PRN PRN Reason: Pain, moderate (4-7) Last Admin: 10/08/18 17:45 Dose: 650 mg Aspirin (Ecotrin) 81 mg PO DAILY [facility] Last Admin: 10/08/18 10:21 Dose: 81 mg Bisacodyl (Dulcolax) 5 mg PO ONCE ONE Stop: 10/09/18 11:08 Clopidogrel Bisulfate (Plavix) 75 mg PO DAILY [facility] Last Admin: 10/08/18 10:20 Dose: 75 mg Clotrimazole (Lotrimin 1%) 0 gm TOP BID [facility] Last Admin: 10/08/18 22:27 Dose: 1 applic Docusate Sodium (Colace) 100 mg PO TID [facility] Last Admin: 10/08/18 17:46 Dose: 100 mg Folic Acid (Folic Acid) 1 mg PO DAILY [facility] Last Admin: 10/08/18 10:20 Dose: 1 mg Lactobacillus Acidophilus (Bacid Acidophilus) 1 cap PO BID [facility] Last Admin: 10/08/18 21:00 Dose: 1 cap Metoprolol Tartrate (Lopressor) 12.5 mg PO BID [facility] Last Admin: 10/08/18 22:02 Dose: Not Given Multivitamins (Hexavitamin) 1 tab PO DAILY [facility] Last Admin: 10/08/18 10:20 Dose: 1 tab Rosuvastatin Calcium (Crestor) 20 mg PO HS [facility] Last Admin: 10/08/18 22:02 Dose: 20 mg Sertraline HCl (Zoloft) 50 mg PO DAILY [facility] Last Admin: 10/08/18 10:20 Dose: 50 mg Thiamine HCl (Vitamin B1 Tab) 100 mg PO DAILY [facility] Last Admin: 10/08/18 10:21 Dose: 100 mg Trazodone HCl (Desyrel) 50 mg PO HS [facility] Last Admin: 10/08/18 22:02 Dose: 50 mg - Labs Labs: 10/07/18 11:25 10/07/18 11:25 PT 14.9 SECONDS (9.7-12.2) H 08/28/18 05:46 INR 1.4 08/28/18 05:46 APTT 26 SECONDS (21-34) 08/28/18 05:46 - Additional Findings Additional findings: - Constitutional Appears: No Acute Distress - Head Exam Head Exam: ATRAUMATIC, NORMOCEPHALIC - Eye Exam Eye Exam: EOMI, PERRL - ENT Exam ENT Exam: Mucous Membranes Moist - Neck Exam Neck Exam: Normal Inspection - Respiratory Exam Respiratory Exam: Clear to Ausculation Bilateral, NORMAL BREATHING PATTERN. absent: Rales, Rhonchi, Wheezes - Cardiovascular Exam Cardiovascular Exam: REGULAR RHYTHM, +S1, +S2 - GI/Abdominal Exam GI & Abdominal Exam: Soft, Normal Bowel Sounds. 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- minimal improvement with PT - Aggressive, daily PT/OT- recommend acute rehab - continue to follow up with PT - L shoulder XR: no subluxation/dislocation, no fracture - L knee immobilizer during PT/standing ONLY - PT taught exercises to patient to continue engaging passive ROM to prevent adhesive capsulitis - will follow PT recs - HEALTH INFORMATION SYSTEMS TECHNICIAN consulted- dysphagia/modified diet - Reconsulted 09/10- continue with same diet as patient cannot cut food without use of left hand, patient would like to maintain current diet order - YONNY/MAURY consulted- see disposition -working on application for disability, as patient was employed before - Code stroke 10/03/17 - patient slipped when attempting to move from chair to bed. Patient denies trauma. 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 Slight dilatation of the left lateral ventricle suggesting mild early compressive effects at the level of the left foramen of Garza. No definitive evidence of acute intracranial hemorrhage. - Most recent CT head 08/29: Continued evolution hemorrhagic conversion changes of a relatively large right MCA territory branch infarct. Improved mass effect and midline shift - MRI brain 08/15: There is a relatively large subacute right MCA territory infarct with areas of hemorrhage in the basal ganglia and right posterior frontoparietal watershed zone as described. Persistent mass effect with compression of the right lateral ventricle and [id number] midline shift with septum pellucidum located approximately 11 mm to left of midline. Mild on dilatation left lateral ventricle due to mild compressive effects at the level of the left foramen of Garza. - Aspiration precautions - Seizure precautions - Lipid panel: choles 271, LDL 184, HDL 59, TG 100 - EKGs: sinus tachycardia - No Afib seen on telemetry - Echo x2: EF 60-65%, no abnormalities, no vegetations - Echo with bubble study: no thrombus, no PFO - No therapeutic anticoagulation - Neurosurgery consulted (Naomy)- no intervention - Neurology consulted (Shavonne/Dain)- hold anticoag but start ASA 81 and Plavix 75, signed off - Cardiology consulted (Neal)- no need for DAMIEN, okay to start ASA 81 and Plavix 75 -Meds: - ASA 81 mg PO daily - Plavix 75 mg PO daily - Crestor 20 mg PO QHS Pulmonary embolism and LLE Deep vein thrombosis - Leukocytosis resolved - remains stable at 7.2 - D-dimer elevated (3912) - CTA chest 08/19: extensive pulmonary thromboembolism - LE Dopplers 08/19: extensive left lower extremity DVT - LLE edema with recent increase 09/09 - NO knee immobilizer while in bed - RITA stocking on LLE - No SCD on LLE - Hold therapeutic anticoagulation due to hemorrhagic stroke - IVC filter 08/20 - Hypercoagulable work-up negative - Hem/onc consulted (Mariola) - Vascular surgery consulted (Shyla)- IVC filter, RITA stocking Urinary retention -Patient voiding on its own, 1600 cc in the evening 10/07 and 400 cc in the am of 10/08, 500cc overnight on 10/08 - U/A - wnl - Urine Cx, catheterized - no growth - Bladder scan TID - Cortez catheter ONCE - patient is currently refusing since patient is voiding. f/u urology recs - PSA levels - free PSA: 0.5, % free PSA: 10, Total PSA: 5.2, Prostate cancer Risk: pending - Renal U/S - no obstructing calculus or hydronephrosis identified. 1.1cm left renal cyst, probable right sided column of elizabeth. - Flomax 0.4 mg PO QD - Urology consult - Dr Bill Ziegler (Dr Ann-Marie Ziegler covering) - f/u recs Depression - Zoloft 50 mg PO daily - Trazodone 50 mg PO QHS Constipation - continue to monitor - continue Colace 100 mg PO TID - Prune juice PRN - Prune juice bottles seen at bedside. Left plantar side of foot - tinea pedis - Podiatry consult - Phillip Quinones - help is appreciated - Bilateral tinea pedis to plantar feet - Clotrimazole cream ordered, to be applied to B/L lower extremities -to be applied by nursing topically BID - Will continue to monitor patient - Stable from podiatry standpoint Sinus tachycardia, fevers, RESOLVED- suspect 2/2 PE/DVT +/- central fevers 2/2 CVA - No increases to rate control meds as to not lower BP (already low normal) - Procal low (0.12) - EKG: sinus tachycardia (130s)- HR now mostly 80s, occasionally 90-100s sinus - Blood Cx no growth - Repeat no growth - Echo x2: EF 60-65%, no abnormalities, no vegetations - Recent low-normal hypotensive (90-100s/60s), stable- suspect due to poor PO intake, tachycardia compensation - Lopressor 12.5 mg PO BID Low back and leg pain, resolved - tylenol 650 Q6 PRN for pain Alcohol use disorder, chronic - MV daily - Thiamine 100 mg PO daily - Folate 1 mg PO daily - Cessation counseling Marijuana use disorder, chronic - UDS positive - Cessation counseling Syncope, resolved- likely vasovagal - CHIEF DATA OFFICER 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 Patchy increased markings at the left lung base with small left pleural effusion. Small nodular density projects over the left lung apex. Cardiomegaly. - Repeat CXR 08/20: no active disease - Lactobacillus acidophilus BID Urinary tract infection, resolved - Urine Cx: Enterococcus faecalis - Repeat no growth - Finished 5 day course of Cipro 400 mg IV Q12H - Repeat UA, Cx negative - UA 10/07 - negative - f/u UCx Scrotal pain, resolved - Testicular u/s: b/l scrotal thickening Ppx: VTE: contraindicated, only SCD to RLE, RITA stocking to LLE dysphagia/modified consistent diet supplements diet Code status: full code Dispo: Will continue to follow up with YONNY/MAURY and patient's friend Mr Martinez regarding patient's plan to return to Will assist SW with translation when contacting patient's family in the [place]. As of 10/09 Mr. Martinez still awaiting his passport renewal to be able to escort patient back to
[2018-10-09 11:54] LABS: BASO % 0.8 % (0.0-2.0); EOS # 0.2 K/uL (0.0-0.7); HEMOGLOBIN 11.9 g/dL (12.0-18.0); LYMPH # 1.9 K/uL (1.0-4.3); LYMPH % 30.9 % (20.0-40.0); MEAN CELL VOLUME 87.1 fL (80.0-94.0); MEAN CORPUSCULAR HEMOGLOBIN 28.5 pg (27.0-31.0); MEAN CORPUSCULAR HGB CONC 32.8 g/dL (33.0-37.0); MEAN PLATELET VOLUME 8.6 fL (7.2-11.7); MONO # 0.8 K/uL (0.0-0.8); MONO % 12.9 % (0.0-10.0); NEUT # 3.2 K/uL (1.8-7.0); NEUT % 52.4 % (50.0-75.0); NRBC % 0.1 % (0.0-2.0); RBC 4.18 Mil/uL (4.40-5.90); RED CELL DISTRIBUTION WIDTH 13.8 % (11.5-14.5); WHITE BLOOD COUNT 6.1 K/uL (4.8-10.8)
[2018-10-09 12:12] LABS: ALB/GLOB RATIO 1.2 (1.0-2.1); ALBUMIN 4.1 g/dL (3.5-5.0); ALT/SGPT 48 U/L (21-72); AST/SGOT 36 U/L (17-59); BLOOD UREA NITROGEN 10 mg/dL (9-20); CALCIUM 9.4 mg/dl (8.6-10.4); GFR NON-AFRICAN AMERICAN > 60
[2018-10-09 16:16] LABS: TOTAL PSA 5.2 ng/mL (< or = 4.0)
[2018-10-10 00:51] VITALS: RESP 20
[2018-10-10] MEDS: Multiple Vitamins Tab PO SCH (11:12)
[2018-10-10] MEDS: Lactobacillus Acidophilus 500 MU Cap PO SCH ×2 (11:12→18:30)
[2018-10-10] MEDS: Clotrimazole 1% Cream(30 gm) TOP SCH ×2 (11:13→18:31)
--- NOTE | 2018-10-10 12:49 | CP.PCM.PN ---
Subjective - Date & Time of Evaluation Date of Evaluation: 10/10/18 Time of Evaluation: 07:25 - Subjective Subjective: PGY-[address] Kimball service Patient is seen and examined at bedside. Patient states being constipated x 3 days, continues to drink prune juice. Patient reports no acute event overnight. No pain reported by patient. Patient continues to urinate on his own. denies fever, chills, chest pain, sob, n/v/d or urinary symptoms. Objective - Vital Signs/Intake and Output Vital Signs (last 24 hours): Temp Pulse Resp BP Pulse Ox 97.8 F 82 20 99/66 L 94 L 10/10/18 07:00 10/10/18 07:00 10/10/18 07:00 10/10/18 07:00 10/10/18 07:00 Intake and Output: 10/10/18 10/10/18 06:59 18:59 Intake Total 1200 Output Total 1400 Balance -200 - Medications Medications: Current Medications Acetaminophen (Tylenol 325mg Tab) 650 mg PO Q6 PRN PRN Reason: Pain, moderate (4-7) Last Admin: 10/09/18 21:25 Dose: 650 mg Aspirin (Ecotrin) 81 mg PO DAILY [facility] Last Admin: 10/10/18 11:13 Dose: 81 mg Clopidogrel Bisulfate (Plavix) 75 mg PO DAILY [facility] Last Admin: 10/10/18 11:13 Dose: 75 mg Clotrimazole (Lotrimin 1%) 0 gm TOP BID [facility] Last Admin: 10/10/18 11:13 Dose: 1 applic Docusate Sodium (Colace) 100 mg PO TID [facility] Last Admin: 10/10/18 11:12 Dose: 100 mg Folic Acid (Folic Acid) 1 mg PO DAILY [facility] Last Admin: 10/10/18 11:12 Dose: 1 mg Lactobacillus Acidophilus (Bacid Acidophilus) 1 cap PO BID [facility] Last Admin: 10/10/18 11:12 Dose: 1 cap Metoprolol Tartrate (Lopressor) 12.5 mg PO BID [facility] Last Admin: 10/10/18 11:13 Dose: Not Given Multivitamins (Hexavitamin) 1 tab PO DAILY [facility] Last Admin: 10/10/18 11:12 Dose: 1 tab Rosuvastatin Calcium (Crestor) 20 mg PO HS [facility] Last Admin: 10/09/18 21:21 Dose: 20 mg Sennosides (Senokot Tab) 8.6 mg PO DAILY [facility] Last Admin: 10/10/18 11:12 Dose: 8.6 mg Sertraline HCl (Zoloft) 50 mg PO DAILY [facility] Last Admin: 10/10/18 11:12 Dose: 50 mg Thiamine HCl (Vitamin B1 Tab) 100 mg PO DAILY [facility] Last Admin: 10/10/18 11:13 Dose: 100 mg Trazodone HCl (Desyrel) 50 mg PO HS [facility] Last Admin: 10/09/18 21:21 Dose: 50 mg - Labs Labs: 10/09/18 11:32 10/09/18 11:32 PT 14.9 SECONDS (9.7-12.2) H 08/28/18 05:46 INR 1.4 08/28/18 05:46 APTT 26 SECONDS (21-34) 08/28/18 05:46 - Constitutional Appears: Well, Non-toxic, No Acute Distress - Head Exam Head Exam: ATRAUMATIC, NORMAL INSPECTION, NORMOCEPHALIC - Eye Exam Eye Exam: EOMI, Normal appearance - ENT Exam ENT Exam: Mucous Membranes Moist - Respiratory Exam Respiratory Exam: Clear to Ausculation Bilateral, NORMAL BREATHING PATTERN. absent: Rales, Rhonchi, Wheezes - Cardiovascular Exam Cardiovascular Exam: REGULAR RHYTHM, +S1, +S2 - GI/Abdominal Exam GI & Abdominal Exam: Soft, Normal Bowel Sounds - Extremities Exam Extremities Exam: Pedal Edema (1+ pitting edema LLE ) - Neurological Exam Neurological Exam: Alert, Awake, Oriented x3 Neuro motor strength exam: Left Upper Extremity: 2/1, Right Upper Extremity: 5, Left Lower Extremity: 2/1, Right Lower Extremity: 5 - Psychiatric Exam Psychiatric exam: Normal Affect, Normal Mood - Skin Skin Exam: Dry, Intact, Normal Color, Warm Assessment and Plan - Assessment and Plan (Free Text) Plan: Plan: 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- minimal improvement with PT - Aggressive, daily PT/OT- recommend acute rehab - continue to follow up with PT - L shoulder XR: no subluxation/dislocation, no fracture - L knee immobilizer during PT/standing ONLY - PT taught exercises to patient to continue engaging passive ROM to prevent adhesive capsulitis - will follow PT recs - METROLOGY SPECIALIST consulted- dysphagia/modified diet - Reconsulted 09/10- continue with same diet as patient cannot cut food without use of left hand, patient would like to maintain current diet order - YONNY/MAURY consulted- see disposition -working on application for disability, as patient was employed before - Code stroke 10/03/17 - patient slipped when attempting to move from chair to bed. Patient denies trauma. 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 Slight dilatation of the left lateral ventricle suggesting mild early compressive effects at the level of the left foramen of Garza. No definitive evidence of acute intracranial hemorrhage. - Most recent CT head 08/29: Continued evolution hemorrhagic conversion changes of a relatively large right MCA territory branch infarct. Improved mass effect and midline shift - MRI brain 08/15: There is a relatively large subacute right MCA territory infarct with areas of hemorrhage in the basal ganglia and right posterior frontoparietal watershed zone as described. Persistent mass effect with compre ssion of the right lateral ventricle and [id number] midline shift with septum pellucidum located approximately 11 mm to left of midline. Mild on dilatation left lateral ventricle due to mild compressive effects at the level of the left foramen of Garza. - Aspiration precautions - Seizure precautions - Lipid panel: choles 271, LDL 184, HDL 59, TG 100 - EKGs: sinus tachycardia - No Afib seen on telemetry - Echo x2: EF 60-65%, no abnormalities, no vegetations - Echo with bubble study: no thrombus, no PFO - No therapeutic anticoagulation - Neurosurgery consulted (Naomy)- no intervention - Neurology consulted (Shavonne/Dain)- hold anticoag but start ASA 81 and Plavix 75, signed off - Cardiology consulted (Neal)- no need for DAMIEN, okay to start ASA 81 and Plavix 75 -Meds: - ASA 81 mg PO daily - Plavix 75 mg PO daily - Crestor 20 mg PO QHS Pulmonary embolism and LLE Deep vein thrombosis - Leukocytosis resolved - remains stable at 7.2 - D-dimer elevated (3912) - CTA chest 08/19: extensive pulmonary thromboembolism - LE Dopplers 08/19: extensive left lower extremity DVT - LLE edema with recent increase 09/09 - NO knee immobilizer while in bed - RITA stocking on LLE - No SCD on LLE - Hold therapeutic anticoagulation due to hemorrhagic stroke - IVC filter 08/20 - Hypercoagulable work-up negative - Hem/onc consulted (Mariola) - Vascular surgery consulted (Shyla)- IVC filter, RITA stocking Urinary retention - Patient voiding on his own now - PSA levels - free PSA: 0.5, % free PSA: 10, Total PSA: 5.2, Prostate cancer Ri sk: pending - patient will need f/u as outpatient for elevated PSA - Renal U/S - no obstructing calculus or hydronephrosis identified. 1.1cm left renal cyst, probable right sided column of elizabeth. - Flomax 0.4 mg PO QD - Urology consult - Dr Ziegler - f/u recs Depression - Zoloft 50 mg PO daily - Trazodone 50 mg PO QHS Constipation - Colace 100 mg PO TID - Senna PO Daily - Prune juice PRN - Prune juice bottles seen at bedside. - Dulcolax 1 dose PRN - if patient continues to be constipated Left plantar side of foot - tinea pedis - Podiatry consult - Phillip Quinones - help is appreciated - Bilateral tinea pedis to plantar feet - Clotrimazole cream ordered, to be applied to B/L lower extremities -to be applied by nursing topically BID - Will continue to monitor patient - Stable from podiatry standpoint Sinus tachycardia, fevers, RESOLVED- suspect 2/2 PE/DVT +/- central fevers 2/2 CVA - No increases to rate control meds as to not lower BP (already low normal) - Procal low (0.12) - EKG: sinus tachycardia (130s)- HR now mostly 80s, occasionally 90-100s sinus - Blood Cx no growth - Repeat no growth - Echo x2: EF 60-65%, no abnormalities, no vegetations - Recent low-normal hypotensive (90-100s/60s), stable- suspect due to poor PO intake, tachycardia compensation - Lopressor 12.5 mg PO BID Low back and leg pain, resolved - tylenol 650 Q6 PRN for pain Alcohol use disorder, chronic - MV daily - Thiamine 100 mg PO daily - Folate 1 mg PO daily - Cessation counseling Marijuana use disorder, chronic - UDS positive - Cessation counseling Syncope, resolved- likely vasovagal - [employer] ROOM 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 Patchy increased markings at the left lung base with small left pleural effusion. Small nodular density projects over the left lung apex. Cardiomegaly. - Repeat CXR 08/20: no active disease - Lactobacillus acidophilus BID Urinary tract infection, resolved - Urine Cx: Enterococcus faecalis - Repeat no growth - Finished 5 day course of Cipro 400 mg IV Q12H - Repeat UA, Cx negative - UA 10/07 - negative - f/u UCx - no growth Scrotal pain, resolved - Testicular u/s: b/l scrotal thickening Ppx: VTE: contraindicated, only SCD to RLE, RITA stocking to LLE dysphagia/modified consistent diet supplements diet Code status: full code Dispo: Spoke with Mr Charles Martinez in the evening of 10/10 @ around 6:00pm. Mr Martinez was accompanied by his son, as well as another of patient's friend, Mr Cristopher Hoover ( phone number [phone]). As per Mr Martinez, his passport renewal will take longer than expected, and instead, Mr Hoover will now be Patient's junior engineer to go with him to the DR. As the patient's friends came to hospital after hours, It was advised for Mr Hoover to come tomorrow to speak with SW/CM about their decision for him to be junior engineer and to bring all documentation required to arrange for flights for patient and junior engineer. Mr Hoover and Mr Martinez's son will come tomorrow in the morning and will follow with SW/CM. Will follow up with patient, his friends/junior engineer and SW/CM on this case. Plan discussed with Dr Jigar Vasquez, PGY-1
[2018-10-10] MEDS ORDERED: Bisacodyl 5mg EC Tab PO PRN (18:58)
--- NOTE | 2018-10-11 07:17 | CP.PCM.PN ---
Subjective - Date & Time of Evaluation Date of Evaluation: 10/11/18 Time of Evaluation: 07:15 - Subjective Subjective: PGY-[address] Kimball Service Patient is seen and examined at bedside. States he had a bowel movement today. Has no complaints at this time. Denies dysuria, hematuria, fever, chills, chest pain, shortness of breath, abdominal pain, n/v/d. Objective - Vital Signs/Intake and Output Vital Signs (last 24 hours): Temp Pulse Resp BP Pulse Ox 97.8 F 94 H 20 108/68 95 10/10/18 23:30 10/10/18 23:30 10/10/18 23:30 10/10/18 23:30 10/10/18 23:30 Intake and Output: 10/11/18 10/11/18 06:59 18:59 Intake Total 480 Output Total 400 Balance 80 - Medications Medications: Current Medications Acetaminophen (Tylenol 325mg Tab) 650 mg PO Q6 PRN PRN Reason: Pain, moderate (4-7) Last Admin: 10/11/18 02:49 Dose: 650 mg Aspirin (Ecotrin) 81 mg PO DAILY [facility] Last Admin: 10/10/18 11:13 Dose: 81 mg Bisacodyl (Dulcolax) 5 mg PO ONCE PRN PRN Reason: Constipation Last Admin: 10/10/18 19:56 Dose: 5 mg Clopidogrel Bisulfate (Plavix) 75 mg PO DAILY [facility] Last Admin: 10/10/18 11:13 Dose: 75 mg Clotrimazole (Lotrimin 1%) 0 gm TOP BID [facility] Last Admin: 10/10/18 18:31 Dose: 1 applic Docusate Sodium (Colace) 100 mg PO TID [facility] Last Admin: 10/10/18 18:31 Dose: 100 mg Folic Acid (Folic Acid) 1 mg PO DAILY [facility] Last Admin: 10/10/18 11:12 Dose: 1 mg Lactobacillus Acidophilus (Bacid Acidophilus) 1 cap PO BID [facility] Last Admin: 10/10/18 18:30 Dose: 1 cap Metoprolol Tartrate (Lopressor) 12.5 mg PO BID [facility] Last Admin: 10/10/18 19:00 Dose: Not Given Multivitamins (Hexavitamin) 1 tab PO DAILY [facility] Last Admin: 10/10/18 11:12 Dose: 1 tab Rosuvastatin Calcium (Crestor) 20 mg PO HS [facility] Last Admin: 10/10/18 22:56 Dose: 20 mg Sennosides (Senokot Tab) 8.6 mg PO DAILY [facility] Last Admin: 10/10/18 11:12 Dose: 8.6 mg Sertraline HCl (Zoloft) 50 mg PO DAILY [facility] Last Admin: 10/10/18 11:12 Dose: 50 mg Thiamine HCl (Vitamin B1 Tab) 100 mg PO DAILY [facility] Last Admin: 10/10/18 11:13 Dose: 100 mg Trazodone HCl (Desyrel) 50 mg PO [facility] Last Admin: 10/10/18 22:56 Dose: 50 mg - Labs Labs: 10/09/18 11:32 10/09/18 11:32 PT 14.9 SECONDS (9.7-12.2) H 08/28/18 05:46 INR 1.4 08/28/18 05:46 APTT 26 SECONDS (21-34) 08/28/18 05:46 - Additional Findings Additional findings: - Constitutional Appears: No Acute Distress - Head Exam Head Exam: ATRAUMATIC, NORMOCEPHALIC - Eye Exam Eye Exam: EOMI, PERRL - ENT Exam ENT Exam: Mucous Membranes Moist - Neck Exam Neck Exam: Normal Inspection - Respiratory Exam Respiratory Exam: Clear to Ausculation Bilateral, NORMAL BREATHING PATTERN. absent: Rales, Rhonchi, Wheezes - Cardiovascular Exam Cardiovascular Exam: REGULAR RHYTHM, +S1, +S2 - GI/Abdominal Exam GI & Abdominal Exam: Soft, Normal Bowel Sounds. 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- minimal improvement with PT - Aggressive, daily PT/OT- recommend acute rehab - continue to follow up with PT - L shoulder XR: no subluxation/dislocation, no fracture - L knee immobilizer during PT/standing ONLY - PT taught exercises to patient to continue engaging passive ROM to prevent adhesive capsulitis - will follow PT recs - UNEMPLOYMENT BENEFITS CLAIMS TAKER consulted- dysphagia/modified diet - Reconsulted 09/10- continue with same diet as patient cannot cut food without use of left hand, patient would like to maintain current diet order - SW/MAURY consulted- see disposition -working on application for disability, as patient was employed before - Code stroke 10/03/17 - patient slipped when attempting to move from chair to bed. Patient denies trauma. 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 Slight dilatation of the left lateral ventricle suggesting mild early compressive effects at the level of the left foramen of Garza. No definitive evidence of acute intracranial hemorrhage. - Most recent CT head 08/29: Continued evolution hemorrhagic conversion changes of a relatively large right MCA territory branch infarct. Improved mass effect and midline shift - MRI brain 08/15: There is a relatively large subacute right MCA territory infarct with areas of hemorrhage in the basal ganglia and right posterior frontoparietal watershed zone as described. Persistent mass effect with compression of the right lateral ventricle and [id number] midline shift with septum pellucidum located approximately 11 mm to left of midline. Mild on dilatation left lateral ventricle due to mild compressive effects at the level of the left foramen of Garza. - Aspiration precautions - Seizure precautions - Lipid panel: choles 271, LDL 184, HDL 59, TG 100 - EKGs: sinus tachycardia - No Afib seen on telemetry - Echo x2: EF 60-65%, no abnormalities, no vegetations - Echo with bubble study: no thrombus, no PFO - No therapeutic anticoagulation - Neurosurgery consulted (Naomy)- no intervention - Neurology consulted (Shavonne/Dain)- hold anticoag but start ASA 81 and Plavix 75, signed off - Cardiology consulted (Neal)- no need for DAMIEN, okay to start ASA 81 and Plavix 75 -Meds: - ASA 81 mg PO daily - Plavix 75 mg PO daily - Crestor 20 mg PO QHS Pulmonary embolism and LLE Deep vein thrombosis - Leukocytosis resolved - remains stable at 7.2 - D-dimer elevated (3912) - CTA chest 08/19: extensive pulmonary thromboembolism - LE Dopplers 08/19: extensive left lower extremity DVT - LLE edema with recent increase 09/09 - NO knee immobilizer while in bed - RITA stocking on LLE - No SCD on LLE - Hold therapeutic anticoagulation due to hemorrhagic stroke - IVC filter 08/20 - Hypercoagulable work-up negative - Hem/onc consulted (Mariola) - Vascular surgery consulted (Shyla)- IVC filter, RITA stocking Urinary retention -Patient voiding on its own, 1600 cc in the evening 10/07 and 400 cc in the am of 10/08, 500cc overnight on 10/08 - U/A - wnl - Urine Cx, catheterized - no growth - Bladder scan TID - Cortez catheter ONCE - patient is currently refusing since patient is voiding. f/u urology recs - PSA levels - free PSA: 0.5, % free PSA: 10, Total PSA: 5.2, Prostate cancer Risk: pending - Renal U/S - no obstructing calculus or hydronephrosis identified. 1.1cm left renal cyst, probable right sided column of elizabeth. - Flomax 0.4 mg PO QD - Urology consult - Dr Bill Ziegler (Dr Ann-Marie Ziegler covering) - f/u recs Depression - Zoloft 50 mg PO daily - Trazodone 50 mg PO QHS Constipation - continue to monitor - continue Colace 100 mg PO TID - Prune juice PRN - Prune juice bottles seen at bedside. Left plantar side of foot - tinea pedis - Podiatry consult - Phillip Quinones - help is appreciated - Bilateral tinea pedis to plantar feet - Clotrimazole cream ordered, to be applied to B/L lower extremities -to be applied by nursing topically BID - Will continue to monitor patient - Stable from podiatry standpoint Sinus tachycardia, fevers, RESOLVED- suspect 2/2 PE/DVT +/- central fevers 2/2 CVA - No increases to rate control meds as to not lower BP (already low normal) - Procal low (0.12) - EKG: sinus tachycardia (130s)- HR now mostly 80s, occasionally 90-100s sinus - Blood Cx no growth - Repeat no growth - Echo x2: EF 60-65%, no abnormalities, no vegetations - Recent low-normal hypotensive (90-100s/60s), stable- suspect due to poor PO intake, tachycardia compensation - Lopressor 12.5 mg PO BID Low back and leg pain, resolved - tylenol 650 Q6 PRN for pain Alcohol use disorder, chronic - MV daily - Thiamine 100 mg PO daily - Folate 1 mg PO daily - Cessation counseling Marijuana use disorder, chronic - UDS positive - Cessation counseling Syncope, resolved- likely vasovagal - MICA BUILDER 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 Patchy increased markings at the left lung base with small left pleural effusion. Small nodular density projects over the left lung apex. Cardiomegaly. - Repeat CXR 08/20: no active disease - Lactobacillus acidophilus BID Urinary tract infection, resolved - Urine Cx: Enterococcus faecalis - Repeat no growth - Finished 5 day course of Cipro 400 mg IV Q12H - Repeat UA, Cx negative - UA 10/07 - negative - f/u UCx Scrotal pain, resolved - Testicular u/s: b/l scrotal thickening Ppx: VTE: contraindicated, only SCD to RLE, RITA stocking to LLE dysphagia/modified consistent diet supplements diet Code status: full code Dispo: Patient and his friend, BroderickTd Jeffers, have plane tickets to for Monday 08/13. They must leave the hospital by 8:30AM in order to make their flight at 1pm. Discharge order needs to be placed on Sunday in order for patient to leave on time.
[2018-10-11 07:59] LABS: BASO % 0.8 % (0.0-2.0); EOS # 0.2 K/uL (0.0-0.7); EOS % 3.3 % (0.0-4.0); HEMOGLOBIN 12.1 g/dL (12.0-18.0); LYMPH # 2.1 K/uL (1.0-4.3); LYMPH % 35.3 % (20.0-40.0); MEAN CELL VOLUME 87.6 fL (80.0-94.0); MEAN CORPUSCULAR HEMOGLOBIN 28.3 pg (27.0-31.0); MEAN CORPUSCULAR HGB CONC 32.3 g/dL (33.0-37.0); MEAN PLATELET VOLUME 8.6 fL (7.2-11.7); MONO # 0.8 K/uL (0.0-0.8); MONO % 13.6 % (0.0-10.0); NEUT # 2.8 K/uL (1.8-7.0); RBC 4.28 Mil/uL (4.40-5.90); RED CELL DISTRIBUTION WIDTH 14.1 % (11.5-14.5)
[2018-10-11 08:39] LABS: ALB/GLOB RATIO 1.2 (1.0-2.1); ALBUMIN 4.1 g/dL (3.5-5.0); ALT/SGPT 44 U/L (21-72); AST/SGOT 44 U/L (17-59); BLOOD UREA NITROGEN 8 mg/dL (9-20); CALCIUM 9.4 mg/dl (8.6-10.4); GFR NON-AFRICAN AMERICAN > 60
[2018-10-11] MEDS: Lactobacillus Acidophilus 500 MU Cap PO SCH ×2 (11:00→17:58)
[2018-10-11] MEDS: Multiple Vitamins Tab PO SCH (11:00)
[2018-10-11] MEDS: Clotrimazole 1% Cream(30 gm) TOP SCH ×2 (11:02→17:59)
[2018-10-12] MEDS: Multiple Vitamins Tab PO SCH (09:30)
[2018-10-12] MEDS: Clotrimazole 1% Cream(30 gm) TOP SCH ×2 (09:30→21:27)
[2018-10-12] MEDS: Lactobacillus Acidophilus 500 MU Cap PO SCH ×2 (09:30→21:26)
--- NOTE | 2018-10-12 19:29 | CP.PCM.PN ---
<Lavern Albarran - Last Filed: 10/12/18 19:46> Subjective - Date & Time of Evaluation Date of Evaluation: 10/12/18 Time of Evaluation: 19:27 - Subjective Subjective: Medicine Progress Note - Dr Peter Castro's service Patient seen and examined at bedside. Per nursing no acute events overnight. Patient is doing well, offers no complaints at this time. Tolerating diet without issues. Objective - Vital Signs/Intake and Output Vital Signs (last 24 hours): Temp Pulse Resp BP Pulse Ox 97.2 F L 84 20 103/68 95 10/12/18 15:00 10/12/18 15:00 10/12/18 15:00 10/12/18 15:00 10/12/18 15:00 - Medications Medications: Current Medications Acetaminophen (Tylenol 325mg Tab) 650 mg PO Q6 PRN PRN Reason: Pain, moderate (4-7) Last Admin: 10/11/18 19:43 Dose: 650 mg Aspirin (Ecotrin) 81 mg PO DAILY [facility] Last Admin: 10/12/18 09:30 Dose: 81 mg Bisacodyl (Dulcolax) 5 mg PO ONCE PRN PRN Reason: Constipation Last Admin: 10/10/18 19:56 Dose: 5 mg Clopidogrel Bisulfate (Plavix) 75 mg PO DAILY [facility] Last Admin: 10/12/18 09:30 Dose: 75 mg Clotrimazole (Lotrimin 1%) 0 gm TOP BID [facility] Last Admin: 10/12/18 09:30 Dose: 1 applic Docusate Sodium (Colace) 100 mg PO TID [facility] Last Admin: 10/12/18 14:12 Dose: 100 mg Folic Acid (Folic Acid) 1 mg PO DAILY [facility] Last Admin: 10/12/18 09:30 Dose: 1 mg Lactobacillus Acidophilus (Bacid Acidophilus) 1 cap PO BID [facility] Last Admin: 10/12/18 09:30 Dose: 1 cap Metoprolol Tartrate (Lopressor) 12.5 mg PO BID [facility] Last Admin: 10/12/18 09:30 Dose: 12.5 mg Multivitamins (Hexavitamin) 1 tab PO DAILY [facility] Last Admin: 10/12/18 09:30 Dose: 1 tab Rosuvastatin Calcium (Crestor) 20 mg PO HS [facility] Last Admin: 10/11/18 21:55 Dose: 20 mg Sennosides (Senokot Tab) 8.6 mg PO DAILY [facility] Last Admin: 10/12/18 09:30 Dose: 8.6 mg Sertraline HCl (Zoloft) 50 mg PO DAILY [facility] Last Admin: 10/12/18 09:30 Dose: 50 mg Thiamine HCl (Vitamin B1 Tab) 100 mg PO DAILY [facility] Last Admin: 10/12/18 09:30 Dose: 100 mg Trazodone HCl (Desyrel) 50 mg PO HS [facility] Last Admin: 10/11/18 21:55 Dose: 50 mg - Labs Labs: 10/11/18 07:55 10/11/18 07:56 PT 14.9 SECONDS (9.7-12.2) H 08/28/18 05:46 INR 1.4 08/28/18 05:46 APTT 26 SECONDS (21-34) 08/28/18 05:46 - Additional Findings Additional findings: - Constitutional Appears: No Acute Distress - Head Exam Head Exam: ATRAUMATIC, NORMOCEPHALIC - Eye Exam Eye Exam: EOMI, PERRL - ENT Exam ENT Exam: Mucous Membranes Moist - Neck Exam Neck Exam: Normal Inspection - Respiratory Exam Respiratory Exam: Clear to Ausculation Bilateral, NORMAL BREATHING PATTERN. absent: Rales, Rhonchi, Wheezes - Cardiovascular Exam Cardiovascular Exam: REGULAR RHYTHM, +S1, +S2 - GI/Abdominal Exam GI & Abdominal Exam: Soft, Normal Bowel Sounds. absent: Guarding, Rigid, Tenderness, Rebound - Extremities Exam Extremities Exam: Pedal Edema (1+ pitting edema LLE up to tibial tuberosity, L arm held in flexion) - Neurological Exam Neuro motor strength exam: Left Upper Extremity: 5, Right Upper Extremity: 2/1, Left Lower Extremity: 5, Right Lower Extremity: 2/1 - Skin Skin Exam: Dry, Normal Color, Warm Assessment and Plan - Assessment and Plan (Free Text) Assessment: 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 - Patient to be discharged tomorrow morning, will attempt to provide the patient with a wheelchair - Aggressive, daily PT/OT- recommend acute rehab - continue to follow up with PT - L shoulder XR: no subluxation/dislocation, no fracture - L knee immobilizer during PT/standing ONLY - PT taught exercises to patient to continue engaging passive ROM to prevent adhesive capsulitis - will follow PT recs - HEAD INSPECTOR AND CENTER MARKER consulted- dysphagia/modified diet - Reconsulted 09/10- continue with same diet as patient cannot cut food without use of left hand, patient would like to maintain current diet order - YONNY/MAURY consulted- see disposition -working on application for disability, as patient was employed before - Code stroke 10/03/17 - patient slipped when attempting to move from chair to bed. Patient denies trauma. 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- suspect embolic / Afib / alcohol use - Repeated CTs of head continued to show evolution/increase of bleed - Aspiration precautions, Seizure precautions - Lipid panel: choles 271, LDL 184, HDL 59, TG 100 - EKGs: sinus tachycardia - Echo x2: EF 60-65%, no abnormalities, no vegetations, Echo with bubble study: no thrombus, no PFO - No therapeutic anticoagulation - Neurosurgery consulted (Naomy)- no intervention - Neurology consulted (Shavonne/Dain)- hold anticoag but start ASA 81 and Plavix 75, signed off - Cardiology consulted (Neal)- no need for DAMIEN, okay to start ASA 81 and Plavix 75 - ASA 81 mg PO daily, Plavix 75 mg PO daily, Crestor 20 mg PO QHS Imaging: - Initial CT head 08/10: There is a large on MCA branch territory infarct involving the right basal ganglia and right posterior frontoparietal region extending to the vertex with mass effect with overlying sulcal effacement, compression of the right lateral ventricle and shift of the septum pellucidum from right to left by approximately 4.9 mm. Slight dilatation of the left lateral ventricle suggesting mild early compressive effects at the level of the left foramen of Garza. No definitive evidence of acute intracranial hemorrhage. - Most recent CT head 08/29: Continued evolution hemorrhagic conversion changes of a relatively large right MCA territory branch infarct. Improved mass effect and midline shift - MRI brain 08/15: There is a relatively large subacute right MCA territory i nfarct with areas of hemorrhage in the basal ganglia and right posterior frontoparietal watershed zone as described. Persistent mass effect with compression of the right lateral ventricle and [id number] midline shift with septum pellucidum located approximately 11 mm to left of midline. Mild on dilatation left lateral ventricle due to mild compressive effects at the level of the left foramen of Garza. Pulmonary embolism and LLE Deep vein thrombosis - D-dimer elevated (3912) - CTA chest 08/19: extensive pulmonary thromboembolism - LE Dopplers 08/19: extensive left lower extremity DVT - LLE edema with recent increase 09/09, NO knee immobilizer while in bed, RITA stocking on LLE - Hold therapeutic anticoagulation due to hemorrhagic stroke - S/P IVC filter 08/20 - Hypercoagulable work-up negative - Hem/onc consulted (Mariola) - Vascular surgery consulted (Ellsworth)- IVC filter, RITA stocking Urinary retention - Patient voiding on its own, 1600 cc in the evening 10/07 and 400 cc in the am of 10/08, 500cc overnight on 10/08 - U/A - wnl, Urine Cx, catheterized - no growth - Bladder scan TID - Cortez catheter ONCE - patient is currently refusing since patient is voiding. f/u urology recs - PSA levels - free PSA: 0.5, % free PSA: 10, Total PSA: 5.2, Prostate cancer Risk: pending - Renal U/S - no obstructing calculus or hydronephrosis identified. 1.1cm left renal cyst, probable right sided column of elizabeth. - Continue Flomax 0.4 mg PO QD - Urology consult - Dr Bill Ziegler (Dr Ann-Marie Ziegler covering) - f/u recs Depression - Zoloft 50 mg PO daily - Trazodone 50 mg PO QHS Constipation - Continue to monitor - Continue Colace 100 mg PO TID, senna kathrine 8.6mg PO daily - Prune juice PRN - Prune juice bottles seen at bedside. Left plantar side of foot - tinea pedis - Podiatry consult - Phillip Quinones - help is appreciated - Bilateral tinea pedis to plantar feet - Clotrimazole cream ordered, to be applied to B/L lower extremities, to be applied by nursing topically BID - Will continue to monitor patient - Stable from podiatry standpoint Sinus tachycardia, fevers, RESOLVED- suspect 2/2 PE/DVT +/- central fevers 2/2 CVA - No increases to rate control meds as to not lower BP (already low normal) - Procal low (0.12) - EKG: sinus tachycardia (130s)- HR now mostly 80s, occasionally 90-100s sinus - Blood Cx no growth, Repeat no growth - Echo x2: EF 60-65%, no abnormalities, no vegetations - Recent low-normal hypotensive (90-100s/60s), stable- suspect due to poor PO intake, tachycardia compensation - Continue Lopressor 12.5 mg PO BID Low back and leg pain, resolved - Tylenol 650 Q6 PRN for pain Alcohol use disorder, chronic - Multivitamins daily - Thiamine 100 mg PO daily, Folate 1 mg PO daily - Cessation counseling Marijuana use disorder, chronic - UDS positive - Cessation counseling Syncope, resolved- likely vasovagal - CONSTRUCTION PROJECT 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 Patchy increased markings at the left lung base with small left pleural effusion. Small nodular density projects over the left lung apex. Cardiomegaly. - Repeat CXR 08/20: no active disease Urinary tract infection, resolved - Urine Cx 08/12/18: Enterococcus faecalis - Finished 5 day course of Cipro 400 mg IV Q12H - Repeat UA, urine Cx negative - UA 10/07 and urine culture - negative Scrotal pain, resolved - Testicular u/s: b/l scrotal thickening Ppx: VTE: contraindicated, only SCD to RLE, RITA stocking to LLE dysphagia/modified consistent diet supplements diet Code status: full code Dispo: Patient and his friend, Cristopher Appiah Jeffers, have plane tickets to for Friday 10/13 at 1:30pm. They must leave the hospital by 8:30AM in order to make their flight at 1:30pm. Discharge order needs to be placed on Sunday in order for patient to leave on time. We will work on providing the patient with a wheelchair prior to discharge. Plan discussed with Dr Peter Albarran DO PGY-2 <Bienvenido Castro - Last Filed: 10/13/18 08:17> Objective - Vital Signs/Intake and Output Vital Signs (last 24 hours): Temp Pulse Resp BP Pulse Ox 98.1 F 83 20 101/67 95 10/12/18 23:17 10/12/18 23:17 10/12/18 23:17 10/12/18 23:17 10/12/18 23:17 - Medications Medications: Current Medications Acetaminophen (Tylenol 325mg Tab) 650 mg PO Q6 PRN PRN Reason: Pain, moderate (4-7) Last Admin: 10/12/18 23:55 Dose: 650 mg Aspirin (Ecotrin) 81 mg PO DAILY [facility] Last Admin: 10/12/18 09:30 Dose: 81 mg Bisacodyl (Dulcolax) 5 mg PO ONCE PRN PRN Reason: Constipation Last Admin: 10/10/18 19:56 Dose: 5 mg Clopidogrel Bisulfate (Plavix) 75 mg PO DAILY [facility] Last Admin: 10/12/18 09:30 Dose: 75 mg Clotrimazole (Lotrimin 1%) 0 gm TOP BID [facility] Last Admin: 10/12/18 21:27 Dose: 1 applic Docusate Sodium (Colace) 100 mg PO TID [facility] Last Admin: 10/12/18 21:26 Dose: 100 mg Folic Acid (Folic Acid) 1 mg PO DAILY [facility] Last Admin: 10/12/18 09:30 Dose: 1 mg Lactobacillus Acidophilus (Bacid Acidophilus) 1 cap PO BID [facility] Last Admin: 10/12/18 21:26 Dose: 1 cap Metoprolol Tartrate (Lopressor) 12.5 mg PO BID [facility] Last Admin: 10/12/18 21:25 Dose: Not Given Multivitamins (Hexavitamin) 1 tab PO DAILY [facility] Last Admin: 10/12/18 09:30 Dose: 1 tab Rosuvastatin Calcium (Crestor) 20 mg PO HS [facility] Last Admin: 10/12/18 21:26 Dose: 20 mg Sennosides (Senokot Tab) 8.6 mg PO DAILY [facility] Last Admin: 10/12/18 09:30 Dose: 8.6 mg Sertraline HCl (Zoloft) 50 mg PO DAILY [facility] Last Admin: 10/12/18 09:30 Dose: 50 mg Thiamine HCl (Vitamin B1 Tab) 100 mg PO DAILY [facility] Last Admin: 10/12/18 09:30 Dose: 100 mg Trazodone HCl (Desyrel) 50 mg PO HS [facility] Last Admin: 10/12/18 21:26 Dose: 50 mg - Labs Labs: 10/11/18 07:55 10/11/18 07:56 PT 14.9 SECONDS (9.7-12.2) H 08/28/18 05:46 INR 1.4 08/28/18 05:46 APTT 26 SECONDS (21-34) 08/28/18 05:46 Attending/Attestation - Attestation I have personally seen and examined this patient.: Yes I have fully participated in the care of the patient.: Yes I have reviewed all pertinent clinical information, including history, physical exam and plan: Yes Notes (Text): 10/13/18 08:16 This is a late entry. Care of this patient was gone over in detail with the resident. Bienvenido Castro D.O.
--- NOTE | 2018-10-13 08:01 | CP.PCM.PCO ---
Physician Communication Note - Physician Communication Note Physician Communication Note: Please see above
--- NOTE | 2018-10-13 08:30 | CP.PCM.DIS ---
<Lavern Albarran - Last Filed: 10/13/18 08:51> Provider - Provider Date of Admission: 08/10/18 19:30 Attending physician: Bienvenido Castro MD Consults: 10/04/18 11:13 Podiatry Consult Routine Comment: Consulting Provider: Phillip Arias Consulting Physician: Phillip Arias Reason for Consult: Left foot yelllowish scaling and crusting, hx of CVA 10/07/18 13:08 Urology Consult Routine Comment: Consulting Provider: Theresa Ziegler Consulting Physician: Theresa Ziegler Reason for Consult: urinary retention, hx of CVA 08/10/18 18:05 Stroke Team Consult Stat Comment: Consulting Provider: Neurohospitalist Consulting Physician: NEUROHOSP Neurohospitalist for Consult: Vick Marvin Neurohospitalist for Consult: Glenys Gautam Reason for Consult: code stroke Stroke Team Consult Stat Comment: Consulting Provider: Neurohospitalist Consulting Physician: NEUROHOSP Neurohospitalist for Consult: Vick Marvin Neurohospitalist for Consult: Glenys Gautam Reason for Consult: code stroke 08/10/18 19:26 Physician Consult Stat Comment: already called Consulting Provider: Raul Amaya Consulting Physician: Raul Amaya Reason for Consult: CVA 08/11/18 07:25 Physician Consult Routine Comment: Consulting Provider: Vick Marvin Consulting Physician: Vick Marvin Reason for Consult: acute stroke 08/11/18 13:48 Physician Consult Routine Comment: Consulting Provider: Camilo Cross Consulting Physician: Camilo Cross Reason for Consult: Acute Ischemic CVA; increase in midline shift. 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 Consulting Physician: Joshua Mansfield Jr. Reason for Consult: IVC filter 08/30/18 15:08 Psychiatry Consult Routine Comment: Consulting Provider: Angelica Hassan Consulting Physician: Angelica Hassan Reason for Consult: depression (post-stroke with L-sided paralysis) 09/03/18 13:17 Pastoral Care Referral Routine Comment: Physician Instructions: Reason For Exam: please evaluate and treat Time Spent in preparation of Discharge (in minutes): 40 Hospital Course - Lab Results Lab Results: Micro Results 10/07/18 00:19 Urine,Catheterized Urine Culture - Final No Growth (<1,000 CFU/ML) 08/29/18 22:35 Naris MRSA Culture - Final MRSA NOT DETECTED 08/19/18 11:30 Blood Blood Culture - Final NO GROWTH AFTER 5 DAYS 08/19/18 11:30 Blood Gram Stain - Final TEST NOT PERFORMED 08/19/18 11:30 Blood Blood Culture - Final NO GROWTH AFTER 5 DAYS 08/19/18 11:30 Blood Gram Stain - Final TEST NOT PERFORMED 08/19/18 19:50 Naris MRSA Culture (Admit) - Final MRSA NOT DETECTED 08/19/18 19:56 Naris MRSA Culture - Final MRSA NOT DETECTED 08/19/18 14:08 Urine,Catheterized Urine Culture - Final No Growth (<1,000 CFU/ML) 08/12/18 11:50 Blood Blood Culture - Final NO GROWTH AFTER 5 DAYS 08/12/18 11:50 Blood Gram Stain - Final TEST NOT PERFORMED 08/12/18 11:50 Blood Blood Culture - Final NO GROWTH AFTER 5 DAYS 08/12/18 11:50 Blood Gram Stain - Final TEST NOT PERFORMED 08/12/18 11:50 Urine,Catheterized Urine Culture - Final Enterococcus Faecalis 08/10/18 Unknown Naris MRSA Culture (Admit) - Final MRSA NOT DETECTED Most Recent Lab Values WBC 6.0 K/uL (4.8-10.8) 10/11/18 07:55 RBC 4.28 Mil/uL (4.40-5.90) L 10/11/18 07:55 Hgb 12.1 g/dL (12.0-18.0) 10/11/18 07:55 Hct 37.5 % (35.0-51.0) 10/11/18 07:55 MCV 87.6 fL (80.0-94.0) 10/11/18 07:55 MCH 28.3 pg (27.0-31.0) 10/11/18 07:55 MCHC 32.3 g/dL (33.0-37.0) L 10/11/18 07:55 RDW 14.1 % (11.5-14.5) 10/11/18 07:55 Plt Count 310 K/uL (130-400) 10/11/18 07:55 MPV 8.6 fL (7.2-11.7) 10/11/18 07:55 Neut % (Auto) 47.0 % (50.0-75.0) L 10/11/18 07:55 Lymph % (Auto) 35.3 % (20.0-40.0) 10/11/18 07:55 Pender % (Auto) 13.6 % (0.0-10.0) H 10/11/18 07:55 Eos % (Auto) 3.3 % (0.0-4.0) 10/11/18 07:55 Baso % (Auto) 0.8 % (0.0-2.0) 10/11/18 07:55 Neut # (Auto) 2.8 K/uL (1.8-7.0) 10/11/18 07:55 Lymph # (Auto) 2.1 K/uL (1.0-4.3) 10/11/18 07:55 Pender # (Auto) 0.8 K/uL (0.0-0.8) 10/11/18 07:55 Eos # (Auto) 0.2 K/uL (0.0-0.7) 10/11/18 07:55 Baso # (Auto) 0.0 K/uL (0.0-0.2) 10/11/18 07:55 Neutrophils % (Manual) 89 % (50-75) H 08/24/18 06:23 Band Neutrophils % 2 % (0-2) 08/22/18 06:15 Lymphocytes % (Manual) 6 % (20-40) L 08/24/18 06:23 Monocytes % (Manual) 5 % (0-10) 08/24/18 06:23 Eosinophils % (Manual) 1 % (0-4) 08/22/18 06:15 Toxic Granulation Present 08/22/18 06:15 Platelet Estimate Normal (NORMAL) 08/24/18 06:23 Large Platelets Present 08/22/18 06:15 RBC Morphology Normal 08/24/18 06:23 Polychromasia Slight 08/22/18 06:15 Hypochromasia (manual) Slight 08/22/18 06:15 Anisocytosis (manual) Slight 08/22/18 06:15 PT 14.9 SECONDS (9.7-12.2) H 08/28/18 05:46 INR 1.4 08/28/18 05:46 APTT 26 SECONDS (21-34) 08/28/18 05:46 D-Dimer, Quantitative 3912 ng/mlDDU (0-243) H 08/19/18 11:30 Protein C Activity 104 % (70-180) 08/19/18 22:32 Protein S Activity 134 % (70-150) 08/21/18 10:00 Protein S Antigen 186 % (70-140) H 08/21/18 10:00 Antithrombin III Ag 99 % (80-120) 08/21/18 10:00 Antithrombin III Activ 118 % activity (80-120) 08/21/18 10:00 Factor V see note 08/20/18 10:00 Puncture Site Lra 08/11/18 21:43 pCO2 33 mm/Hg (35-45) L 08/11/18 21:43 pO2 82 mm/Hg (80-100) 08/11/18 21:43 HCO3 25.6 mmol/L (21-28) 08/11/18 21:43 ABG pH 7.47 (7.35-7.45) H 08/11/18 21:43 ABG Total CO2 25.0 mmol/L (22-28) 08/11/18 21:43 ABG O2 Saturation 97.1 % (95-98) 08/11/18 21:43 ABG Base Excess 0.9 mmol/L (-2.0-3.0) 08/11/18 21:43 ABG Hemoglobin 14.0 g/dL (11.7-17.4) 08/11/18 21:43 ABG Carboxyhemoglobin 1.0 % (0.5-1.5) 08/11/18 21:43 POC ABG HHb (Measured) 2.9 % (0.0-5.0) 08/11/18 21:43 ABG Methemoglobin 0.5 % (0.0-3.0) 08/11/18 21:43 Carlos Test Na 08/11/18 21:43 A-a O2 Difference 91.0 mm/Hg 08/11/18 21:43 Respiratory Index 1.1 08/11/18 21:43 Hgb O2 Saturation 95.6 % (95.0-98.0) 08/11/18 21:43 Liter Flow 3.0 08/11/18 21:43 FiO2 30.0 % 08/11/18 21:43 Sodium 138 mmol/L (132-148) 10/11/18 07:56 Potassium 3.8 mmol/L (3.6-5.2) 10/11/18 07:56 Chloride 100 mmol/L (98-107) 10/11/18 07:56 Carbon Dioxide 29 mmol/L (22-30) 10/11/18 07:56 Anion Gap 13 (10-20) 10/11/18 07:56 BUN 8 mg/dL (9-20) L 10/11/18 07:56 Creatinine 0.7 mg/dL (0.8-1.5) L 10/11/18 07:56 Est GFR ( Amer) > 60 10/11/18 07:56 Est GFR (Non-Af Amer) > 60 10/11/18 07:56 POC Glucose (mg/dL) 96 mg/dL (65-110) 10/13/18 06:55 Random Glucose 90 mg/dL (75-110) 10/11/18 07:56 Hemoglobin A1c 6.0 % (4.2-6.5) 08/10/18 18:13 Serum Osmolality 323 mosm/kg (272-300) H 08/14/18 06:44 Calcium 9.4 mg/dl (8.6-10.4) 10/11/18 07:56 Phosphorus 4.2 mg/dL (2.5-4.5) 10/11/18 07:56 Magnesium 2.0 mg/dL (1.6-2.3) 10/11/18 07:56 Total Bilirubin 0.3 mg/dL (0.2-1.3) 10/11/18 07:56 AST 44 U/L (17-59) 10/11/18 07:56 ALT 44 U/L (21-72) 10/11/18 07:56 Alkaline Phosphatase 73 U/L (38-126) 10/11/18 07:56 Total Creatine Kinase 48 U/L (55-170) L 09/07/18 11:04 CK-MB (Mass) 0.56 ng/mL (0.0-3.38) 09/07/18 11:04 Troponin I < 0.0120 ng/mL (0.00-0.120) 09/07/18 11:04 Total Protein 7.6 g/dL (6.3-8.3) 10/11/18 07:56 Albumin 4.1 g/dL (3.5-5.0) 10/11/18 07:56 Globulin 3.5 gm/dL (2.2-3.9) 10/11/18 07:56 Albumin/Globulin Ratio 1.2 (1.0-2.1) 10/11/18 07:56 Triglycerides 100 mg/dL (0-149) 08/10/18 18:13 Cholesterol 271 mg/dL (0-199) H 08/10/18 18:13 LDL Cholesterol Direct 184 mg/dL (0-129) H 08/10/18 18:13 HDL Cholesterol 59 mg/dL (30-70) 08/10/18 18:13 Free PSA 0.5 ng/mL 10/08/18 12:52 % Free PSA 10 % (calc) (>25) L 10/08/18 12:52 Total PSA 5.2 ng/mL (< or = 4.0) H 10/08/18 12:52 Procalcitonin 0.12 NG/ML (0.19-0.49) L 08/19/18 11:30 TSH 3rd Generation 1.50 mIU/L (0.46-4.68) 08/12/18 06:24 Urine Color Yellow (YELLOW) 10/07/18 00:19 Urine Clarity Clear (Clear) 10/07/18 00:19 Urine pH 6.0 (5.0-8.0) 10/07/18 00:19 Ur Specific [place] 1.014 (1.003-1.030) 10/07/18 00:19 Urine Protein Negative mg/dL (NEGATIVE) 10/07/18 00:19 Urine Glucose (UA) Normal mg/dL (Normal) 10/07/18 00:19 Urine Ketones Negative mg/dL (NEGATIVE) 10/07/18 00:19 Urine Blood Negative (NEGATIVE) 10/07/18 00:19 Urine Nitrate Negative (NEGATIVE) 10/07/18 00:19 Urine Bilirubin Negative (NEGATIVE) 10/07/18 00:19 Urine Urobilinogen Normal mg/dL (0.2-1.0) 10/07/18 00:19 Ur Leukocyte Esterase Neg Pravin/uL (Negative) 10/07/18 00:19 Urine WBC (Auto) 1 /hpf (0-5) 10/07/18 00:19 Urine RBC (Auto) 1 /hpf (0-3) 10/07/18 00:19 Ur Squamous Epith Cells 8 /hpf (0-5) H 08/19/18 11:30 Urine Bacteria Rare (<OCC) 10/07/18 00:19 Vancomycin Trough < 5.0 ug/mL (5.0-10.0) L 08/19/18 12:05 Urine Opiates Screen Negative (NEGATIVE) 08/11/18 11:28 Urine Methadone Screen Negative (NEGATIVE) 08/11/18 11:28 Ur Barbiturates Screen Negative (NEGATIVE) 08/11/18 11:28 Ur Phencyclidine Scrn Negative (NEGATIVE) 08/11/18 11:28 Ur Amphetamines Screen Negative (NEGATIVE) 08/11/18 11:28 U Benzodiazepines Scrn Negative (NEGATIVE) 08/11/18 11:28 U Oth Cocaine Metabols Negative (NEGATIVE) 08/11/18 11:28 U Cannabinoids Screen Positive (NEGATIVE) H 08/11/18 11:28 Alcohol, Quantitative < 10 mg/dl (0-10) 08/10/18 18:13 Rheumatoid Factor <14 IU/mL (<14) 08/19/18 22:32 SEVERO Screen Negative (NEGATIVE) 08/19/18 22:32 SEVERO Titer TNP 08/19/18 22:32 SEVERO Pattern TNP 08/19/18 22:32 SS-A Antibody <1.0 neg AI (<1.0 NEGATIVE) 08/19/18 22:32 SS-B Antibody <1.0 neg AI (<1.0 NEGATIVE) 08/19/18 22:32 Sm (Moran) Antibody <1.0 neg AI (<1.0 NEGATIVE) 08/19/18 22:32 SM/BLOCK CAPTAIN Antibody <1.0 neg AI (<1.0 NEGATIVE) 08/19/18 22:32 Scl-70 Antibody <1.0 neg AI (<1.0 NEGATIVE) 08/19/18 22:32 Anti-ds DNA Titer (Crith) TNP 08/19/18 22:32 Anti-ds DNA (Crithidia) Negative (NEGATIVE) 08/19/18 22:32 Ribosomal P Prot Ab <1.0 neg AI (<1.0 NEGATIVE) 08/19/18 22:32 Anti-Mitochondrial Titr TNP 08/19/18 22:32 Anti-Mitochondrial Ab Negative (NEGATIVE) 08/19/18 22:32 [id number] Ab 17 BELKIS (<=20) 08/19/18 22:32 Beta-2 GPI IgG Ab <9 SGU (<=20) 08/19/18 22:32 Beta-2 GPI IgM Ab <9 SMU (<=20) 08/19/18 22:32 Actin IgG Antibody <20 U 08/19/18 22:32 Striated Muscle Ab Negative (NEGATIVE) 08/19/18 22:32 Myocardial Ab Titer TNP 08/19/18 22:32 Anti-Myocardial Ab Negative (NEGATIVE) 08/19/18 22:32 Reticulin Ab Titer TNP 08/19/18 22:32 Reticulin IgA Antibody Negative (NEGATIVE) 08/19/18 22:32 Thyroperoxidase Ab <1 IU/mL (<9) 08/19/18 22:32 Anti-Parietal Cell Ab <20.0 U 08/19/18 22:32 Phosphatidylserine IgG <10 U/mL (<10) 08/19/18 22:32 Phosphatidylserine IgA <20 U/mL (<20) 08/19/18 22:32 Phosphatidylserine IgM <25 U/mL (<25) 08/19/18 22:32 Anti-Phospholipid Intrp see note 08/19/18 22:32 Anti-Cardiolipin IgG Ab <14 GPL (<=14) 08/20/18 10:00 Anti-Cardiolipin IgA Ab <11 APL (<=11) 08/20/18 10:00 Anti-Cardiolipin IgM Ab <12 MPL (<=12) 08/20/18 10:00 Complement C3 262 mg/dL (82-185) H 08/19/18 22:32 Complement C4 71 mg/dL (15-53) H 08/19/18 22:32 RPR Nonreactive (NONREACTIVE) 08/23/18 06:20 Hepatitis A IgM Ab Negative (NEGATIVE) 08/19/18 11:30 Hep Bs Antigen Negative (NEGATIVE) 08/19/18 11:30 Hep B Core IgM Ab Negative (NEGATIVE) 08/19/18 11:30 Hepatitis C Antibody Negative (NEGATIVE) 08/19/18 11:30 Prothrombin Mut Interp see note 08/20/18 06:00 Prothrombin Gene Mutate see note 08/20/18 06:00 Prothromb Gene Review see note 08/20/18 06:00 Blood Type A POSITIVE 08/10/18 18:50 Antibody Screen Negative 08/10/18 18:50 - Hospital Course Hospital Course: History and Physical : Mr. Aguayo is a 52 year old male with no PMH comes to [facility] for inability to move his left side. At time of interview, patient is poorly arousable. History obtained mostly from chart review and nursing staff. Patient was fine last night around midnight when he went to sleep. When he awoke this morning, he was unable to move his left side. Patient admits to drinking 5 beers daily; last drink yesterday evening. Denies pain, fever, chills, Hx HTN, DM, CAD, MS, stroke. Hospital Course: Mr Aguayo was admitted to the hospital on August 10, 2018 and patient was discharged on October 13, 2018. Patients friend, Mr Cristopher Jeffers ([phone]), will be picking up the patient and traveling with him to the [facility] where the patient states he has benefits. Patient was provided a wheelchair by the medicine team. Please see below assessments/plan for a brief summary of Mr Aguayo's hospital course. Please refer to EMR for further details of his hospital stay. Patient's medications were reconciled and he was provided prescriptions at the bedside. All questions and concerns were addressed. 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 - Patient provided a wheelchair by the medicine team - Aggressive, daily PT/OT- recommend acute rehab - continue to follow up with PT - L shoulder XR: no subluxation/dislocation, no fracture - L knee immobilizer during PT/standing ONLY - PT taught exercises to patient to continue engaging passive ROM to prevent adhesive capsulitis - will follow PT recs - SENIOR DESIGN ENGINEER consulted- dysphagia/modified diet - Reconsulted 09/10- continue with same diet as patient cannot cut food without use of left hand, patient would like to maintain current diet order - YONNY/MAURY consulted- see disposition -working on application for disability, as patient was employed before - Code stroke 10/03/17 - patient slipped when attempting to move from chair to bed. Patient denies trauma. 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- suspect embolic 2/2 Afib 2/2 alcohol use - Repeated CTs of head continued to show evolution/increase of bleed - Aspiration precautions, Seizure precautions - Lipid panel: choles 271, LDL 184, HDL 59, TG 100 - EKGs: sinus tachycardia - Echo x2: EF 60-65%, no abnormalities, no vegetations, Echo with bubble study: no thrombus, no PFO - No therapeutic anticoagulation - Neurosurgery consulted (Naomy)- no intervention - Neurology consulted (Shavonne/Dain)- hold anticoag but start ASA 81 and Plavix 75, signed off - Cardiology consulted (Neal)- no need for DAMIEN, okay to start ASA 81 and Plavix 75 - ASA 81 mg PO daily, Plavix 75 mg PO daily, Crestor 20 mg PO QHS Imaging: - Initial CT head 08/10: There is a large on MCA branch territory infarct involving the right basal ganglia and right posterior frontoparietal region extending to the vertex with mass effect with overlying sulcal effacement, compression of the right lateral ventricle and shift of the septum pellucidum from right to left by approximately 4.9 mm. Slight dilatation of the left lateral ventricle suggesting mild early compressive effects at the level of the left foramen of Garza. No definitive evidence of acute intracranial hemorrhage. - Most recent CT head 08/29: Continued evolution hemorrhagic conversion changes of a relatively large right MCA territory branch infarct. Improved mass effect and midline shift - MRI brain 08/15: There is a relatively large subacute right MCA territory infarct with areas of hemorrhage in the basal ganglia and right posterior frontoparietal watershed zone as described. Persistent mass effect with compression of the right lateral ventricle and [id number] midline shift with septum pellucidum located approximately 11 mm to left of midline. Mild on dilatation left lateral ventricle due to mild compressive effects at the level of the left foramen of Garza. Pulmonary embolism and LLE Deep vein thrombosis - D-dimer elevated (3912) - CTA chest 08/19: extensive pulmonary thromboembolism - LE Dopplers 08/19: extensive left lower extremity DVT - LLE edema with recent increase 09/09, NO knee immobilizer while in bed, RITA stocking on LLE - Hold therapeutic anticoagulation due to hemorrhagic stroke - S/P IVC filter 08/20 - Hypercoagulable work-up negative - Hem/onc consulted ([place]ari[place]) - Vascular surgery consulted ([place])- IVC filter, RITA stocking Urinary retention - Patient voiding on its own, 1600 cc in the evening 10/07 and 400 cc in the am of 10/08, 500cc overnight on 10/08 - U/A - wnl, Urine Cx, catheterized - no growth - Bladder scan TID - Cortez catheter ONCE - patient is currently refusing since patient is voiding. f/u urology recs - PSA levels - free PSA: 0.5, % free PSA: 10, Total PSA: 5.2, Prostate cancer Risk: pending - Renal U/S - no obstructing calculus or hydronephrosis identified. 1.1cm left renal cyst, probable right sided column of elizabeth. - Continue Flomax 0.4 mg PO QD - Urology consult - Dr Bill Ziegler (Dr Ann-Marie Ziegler covering) - f/u recs Depression - Zoloft 50 mg PO daily - Trazodone 50 mg PO QHS Constipation - Continue to monitor - Continue Colace 100 mg PO TID, senna kathrine 8.6mg PO daily - Prune juice PRN - Prune juice bottles seen at bedside. Left plantar side of foot - tinea pedis - Podiatry consult - Phillip Quinones - help is appreciated - Bilateral tinea pedis to plantar feet - Clotrimazole cream ordered, to be applied to B/L lower extremities, to be applied by nursing topically BID - Will continue to monitor patient - Stable from podiatry standpoint Sinus tachycardia, fevers, RESOLVED- suspect 2/2 PE/DVT +/- central fevers 2/2 CVA - No increases to rate control meds as to not lower BP (already low normal) - Procal low (0.12) - EKG: sinus tachycardia (130s)- HR now mostly 80s, occasionally 90-100s sinus - Blood Cx no growth, Repeat no growth - Echo x2: EF 60-65%, no abnormalities, no vegetations - Recent low-normal hypotensive (90-100s/60s), stable- suspect due to poor PO intake, tachycardia compensation - Continue Lopressor 12.5 mg PO BID Low back and leg pain, resolved - Tylenol 650 Q6 PRN for pain Alcohol use disorder, chronic - Multivitamins daily - Thiamine 100 mg PO daily, Folate 1 mg PO daily - Cessation counseling Marijuana use disorder, chronic - UDS positive - Cessation counseling Syncope, resolved- likely vasovagal - LITIGATION ASSOCIATE 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 Patchy increased markings at the left lung base with small left pleural effusion. Small nodular density projects over the left lung apex. Cardiomegaly. - Repeat CXR 08/20: no active disease Urinary tract infection, resolved - Urine Cx 08/12/18: Enterococcus faecalis - Finished 5 day course of Cipro 400 mg IV Q12H - Repeat UA, urine Cx negative - UA 10/07 and urine culture - negative Scrotal pain, resolved - Testicular u/s: b/l scrotal thickening Ppx: VTE: contraindicated, only SCD to RLE, RITA stocking to LLE dysphagia/modified consistent diet supplements diet Code status: full code Discharge Exam - Additional Findings Additional findings: - Constitutional Appears: No Acute Distress - Head Exam Head Exam: ATRAUMATIC, NORMOCEPHALIC - Eye Exam Eye Exam: EOMI, PERRL - ENT Exam ENT Exam: Mucous Membranes Moist - Neck Exam Neck Exam: Normal Inspection - Respiratory Exam Respiratory Exam: Clear to Ausculation Bilateral, NORMAL BREATHING PATTERN. absent: Rales, Rhonchi, Wheezes - Cardiovascular Exam Cardiovascular Exam: REGULAR RHYTHM, +S1, +S2 - GI/Abdominal Exam GI & Abdominal Exam: Soft, Normal Bowel Sounds. absent: Guarding, Rigid, Tenderness, Rebound - Extremities Exam Extremities Exam: Pedal Edema (1+ pitting edema LLE up to tibial tuberosity, L arm held in flexion) - Neurological Exam Neuro motor strength exam: Left Upper Extremity: 5, Right Upper Extremity: 2/1, Left Lower Extremity: 5, Right Lower Extremity: 2/1 - Skin Skin Exam: Dry, Normal Color, Warm Discharge Plan - Discharge Medications Prescriptions: RX: Aspirin [Ecotrin] 81 mg PO DAILY #30 tabec RX: Atorvastatin [Lipitor] 40 mg PO DAILY #30 tab RX: Clopidogrel [Plavix] 75 mg PO DAILY #30 tab RX: Clotrimazole 1% Cream [Lotrimin 1%] 1 % TOP BID #30 tube RX: Folic Acid 1 mg PO DAILY #30 tab RX: Metoprolol Tartrate [Lopressor] 12.5 mg PO BID #60 tab RX: Sertraline [Zoloft] 50 mg PO DAILY #30 tab RX: Thiamine [Vitamin B1 Tab] 100 mg PO DAILY #30 tab RX: traZODone [Desyrel] 50 mg PO HS #30 tab - Follow Up Plan Condition: STABLE Disposition: HOME/ ROUTINE Instructions: Stroke (DC), Deep Vein Thrombosis (Blood Clots in the Legs) (DC), Pulmonary Embolism (Blood Clot in the Lungs) (DC), Hemorrhagic Stroke, Alcohol Abuse and Alcoholism (DC), Vena Cava Filter Placement, Leukocytosis (DC) Additional Instructions: The following instructions were explained to patient in [place]an with the help of the 1:1 Nurse present who was present in the room and copy will need to be provided to him in Singaporean upon discharge: 1). You must follow up with your physician in the DR in the next 1 to 2 weeks for coordination of your health care. You were provided with the reports for the pertinent radiology studies that you had done while you were here as well as the last Medicine Team note containing a brief summary of your care here at this hospital. Please bring these documents with you to your appointment with your doctor. 2). Please have the following medications filled at your pharmacy on your way to the airport and take as directed: Aspirin 81 mg, 1 tablet by mouth once a day (8 AM) Clopidogrel 75 mg, 1 tablet by mouth once a day (8 AM) Metoprolol Tartrate 12.5 mg, 1 tablet by mouth twice a day (8 AM and 8 PM) Atorvastatin 40 mg, 1 tablet by mouth once a day (8 AM) Sertraline 50 mg, 1 tablet by mouth once a day (8 AM) Trazadone 50 mg, 1 tablet by mouth once a day (8 PM) Clotrimazole Cream 1%, apply to the bottom surface of your left foot twice a day (8 AM and 8 PM) Folic Acid 1 mg, 1 tablet by mouth once a day (8 AM) Thiamine 100 mg, 1 tablet by mouth once a day (8 AM) 3). Please make sure to purchase a Multivitamin while at the pharmacy (you do not need a prescription for this) and take 1 table by mouth once a a day at 8 AM. 4). Please have a safe trip and be well. Referrals: Vick Marvin MD [Staff Provider] - <Mariel Norton V - Last Filed: 10/13/18 16:51> Provider - Provider Date of Admission: 08/10/18 19:30 Attending physician: Bienvenido Castro MD Consults: 10/04/18 11:13 Podiatry Consult Routine Comment: Consulting Provider: Phillip Arias Consulting Physician: Phillip Arias Reason for Consult: Left foot yelllowish scaling and crusting, hx of CVA 10/07/18 13:08 Urology Consult Routine Comment: Consulting Provider: Theresa Ziegler Consulting Physician: Theresa Ziegler Reason for Consult: urinary retention, hx of CVA 08/10/18 18:05 Stroke Team Consult Stat Comment: Consulting Provider: Neurohospitalist Consulting Physician: NEUROHOSP Neurohospitalist for Consult: Vick Marvin Neurohospitalist for Consult: Glenys Gautam Reason for Consult: code stroke Stroke Team Consult Stat Comment: Consulting Provider: Neurohospitalist Consulting Physician: NEUROHOSP Neurohospitalist for Consult: Vick Marvin Neurohospitalist for Consult: Glenys Gautam Reason for Consult: code stroke 08/10/18 19:26 Physician Consult Stat Comment: already called Consulting Provider: Raul Amaya Consulting Physician: Raul Amaya Reason for Consult: CVA 08/11/18 07:25 Physician Consult Routine Comment: Consulting Provider: Vick Marvin Consulting Physician: Vick Marvin Reason for Consult: acute stroke 08/11/18 13:48 Physician Consult Routine Comment: Consulting Provider: Camilo Cross Consulting Physician: Camilo Cross Reason for Consult: Acute Ischemic CVA; increase in midline shift. 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 Consulting Physician: Joshua Mansfield Jr. Reason for Consult: IVC filter 08/30/18 15:08 Psychiatry Consult Routine Comment: Consulting Provider: Angelica Hassan Consulting Physician: Angelica Hassan Reason for Consult: depression (post-stroke with L-sided paralysis) 09/03/18 13:17 Pastoral Care Referral Routine Comment: Physician Instructions: Reason For Exam: please evaluate and treat Diagnosis - Discharge Diagnosis (1) Arterial ischemic stroke, MCA (middle cerebral artery), right, acute Status: Acute (2) ETOH abuse Status: Chronic (3) Impaired glucose tolerance Status: Acute (4) Lipid disorder Status: Acute (5) Leukocytosis Status: Acute (6) DVT (deep venous thrombosis) Status: Acute (7) Pulmonary embolism Status: Acute (8) Prophylactic measure Status: Acute Hospital Course - Lab Results Lab Results: Micro Results 10/07/18 00:19 Urine,Catheterized Urine Culture - Final No Growth (<1,000 CFU/ML) 08/29/18 22:35 Naris MRSA Culture - Final MRSA NOT DETECTED 08/19/18 11:30 Blood Blood Culture - Final NO GROWTH AFTER 5 DAYS 08/19/18 11:30 Blood Gram Stain - Final TEST NOT PERFORMED 08/19/18 11:30 Blood Blood Culture - Final NO GROWTH AFTER 5 DAYS 08/19/18 11:30 Blood Gram Stain - Final TEST NOT PERFORMED 08/19/18 19:50 Naris MRSA Culture (Admit) - Final MRSA NOT DETECTED 08/19/18 19:56 Naris MRSA Culture - Final MRSA NOT DETECTED 08/19/18 14:08 Urine,Catheterized Urine Culture - Final No Growth (<1,000 CFU/ML) 08/12/18 11:50 Blood Blood Culture - Final NO GROWTH AFTER 5 DAYS 08/12/18 11:50 Blood Gram Stain - Final TEST NOT PERFORMED 08/12/18 11:50 Blood Blood Culture - Final NO GROWTH AFTER 5 DAYS 08/12/18 11:50 Blood Gram Stain - Final TEST NOT PERFORMED 08/12/18 11:50 Urine,Catheterized Urine Culture - Final Enterococcus Faecalis 08/10/18 Unknown Naris MRSA Culture (Admit) - Final MRSA NOT DETECTED Most Recent Lab Values WBC 6.0 K/uL (4.8-10.8) 10/11/18 07:55 RBC 4.28 Mil/uL (4.40-5.90) L 10/11/18 07:55 Hgb 12.1 g/dL (12.0-18.0) 10/11/18 07:55 Hct 37.5 % (35.0-51.0) 10/11/18 07:55 MCV 87.6 fL (80.0-94.0) 10/11/18 07:55 MCH 28.3 pg (27.0-31.0) 10/11/18 07:55 MCHC 32.3 g/dL (33.0-37.0) L 10/11/18 07:55 RDW 14.1 % (11.5-14.5) 10/11/18 07:55 Plt Count 310 K/uL (130-400) 10/11/18 07:55 MPV 8.6 fL (7.2-11.7) 10/11/18 07:55 Neut % (Auto) 47.0 % (50.0-75.0) L 10/11/18 07:55 Lymph % (Auto) 35.3 % (20.0-40.0) 10/11/18 07:55 Pender % (Auto) 13.6 % (0.0-10.0) H 10/11/18 07:55 Eos % (Auto) 3.3 % (0.0-4.0) 10/11/18 07:55 Baso % (Auto) 0.8 % (0.0-2.0) 10/11/18 07:55 Neut # (Auto) 2.8 K/uL (1.8-7.0) 10/11/18 07:55 Lymph # (Auto) 2.1 K/uL (1.0-4.3) 10/11/18 07:55 Pender # (Auto) 0.8 K/uL (0.0-0.8) 10/11/18 07:55 Eos # (Auto) 0.2 K/uL (0.0-0.7) 10/11/18 07:55 Baso # (Auto) 0.0 K/uL (0.0-0.2) 10/11/18 07:55 Neutrophils % (Manual) 89 % (50-75) H 08/24/18 06:23 Band Neutrophils % 2 % (0-2) 08/22/18 06:15 Lymphocytes % (Manual) 6 % (20-40) L 08/24/18 06:23 Monocytes % (Manual) 5 % (0-10) 08/24/18 06:23 Eosinophils % (Manual) 1 % (0-4) 08/22/18 06:15 Toxic Granulation Present 08/22/18 06:15 Platelet Estimate Normal (NORMAL) 08/24/18 06:23 Large Platelets Present 08/22/18 06:15 RBC Morphology Normal 08/24/18 06:23 Polychromasia Slight 08/22/18 06:15 Hypochromasia (manual) Slight 08/22/18 06:15 Anisocytosis (manual) Slight 08/22/18 06:15 PT 14.9 SECONDS (9.7-12.2) H 08/28/18 05:46 INR 1.4 08/28/18 05:46 APTT 26 SECONDS (21-34) 08/28/18 05:46 D-Dimer, Quantitative 3912 ng/mlDDU (0-243) H 08/19/18 11:30 Protein C Activity 104 % (70-180) 08/19/18 22:32 Protein S Activity 134 % (70-150) 08/21/18 10:00 Protein S Antigen 186 % (70-140) H 08/21/18 10:00 Antithrombin III Ag 99 % (80-120) 08/21/18 10:00 Antithrombin III Activ 118 % activity (80-120) 08/21/18 10:00 Factor V see note 08/20/18 10:00 Puncture Site Lra 08/11/18 21:43 pCO2 33 mm/Hg (35-45) L 08/11/18 21:43 pO2 82 mm/Hg (80-100) 08/11/18 21:43 HCO3 25.6 mmol/L (21-28) 08/11/18 21:43 ABG pH 7.47 (7.35-7.45) H 08/11/18 21:43 ABG Total CO2 25.0 mmol/L (22-28) 08/11/18 21:43 ABG O2 Saturation 97.1 % (95-98) 08/11/18 21:43 ABG Base Excess 0.9 mmol/L (-2.0-3.0) 08/11/18 21:43 ABG Hemoglobin 14.0 g/dL (11.7-17.4) 08/11/18 21:43 ABG Carboxyhemoglobin 1.0 % (0.5-1.5) 08/11/18 21:43 POC ABG HHb (Measured) 2.9 % (0.0-5.0) 08/11/18 21:43 ABG Methemoglobin 0.5 % (0.0-3.0) 08/11/18 21:43 Carlos Test Na 08/11/18 21:43 A-a O2 Difference 91.0 mm/Hg 08/11/18 21:43 Respiratory Index 1.1 08/11/18 21:43 Hgb O2 Saturation 95.6 % (95.0-98.0) 08/11/18 21:43 Liter Flow 3.0 08/11/18 21:43 FiO2 30.0 % 08/11/18 21:43 Sodium 138 mmol/L (132-148) 10/11/18 07:56 Potassium 3.8 mmol/L (3.6-5.2) 10/11/18 07:56 Chloride 100 mmol/L (98-107) 10/11/18 07:56 Carbon Dioxide 29 mmol/L (22-30) 10/11/18 07:56 Anion Gap 13 (10-20) 10/11/18 07:56 BUN 8 mg/dL (9-20) L 10/11/18 07:56 Creatinine 0.7 mg/dL (0.8-1.5) L 10/11/18 07:56 Est GFR ( Amer) > 60 10/11/18 07:56 Est GFR (Non-Af Amer) > 60 10/11/18 07:56 POC Glucose (mg/dL) 96 mg/dL (65-110) 10/13/18 06:55 Random Glucose 90 mg/dL (75-110) 10/11/18 07:56 Hemoglobin A1c 6.0 % (4.2-6.5) 08/10/18 18:13 Serum Osmolality 323 mosm/kg (272-300) H 08/14/18 06:44 Calcium 9.4 mg/dl (8.6-10.4) 10/11/18 07:56 Phosphorus 4.2 mg/dL (2.5-4.5) 10/11/18 07:56 Magnesium 2.0 mg/dL (1.6-2.3) 10/11/18 07:56 Total Bilirubin 0.3 mg/dL (0.2-1.3) 10/11/18 07:56 AST 44 U/L (17-59) 10/11/18 07:56 ALT 44 U/L (21-72) 10/11/18 07:56 Alkaline Phosphatase 73 U/L (38-126) 10/11/18 07:56 Total Creatine Kinase 48 U/L (55-170) L 09/07/18 11:04 CK-MB (Mass) 0.56 ng/mL (0.0-3.38) 09/07/18 11:04 Troponin I < 0.0120 ng/mL (0.00-0.120) 09/07/18 11:04 Total Protein 7.6 g/dL (6.3-8.3) 10/11/18 07:56 Albumin 4.1 g/dL (3.5-5.0) 10/11/18 07:56 Globulin 3.5 gm/dL (2.2-3.9) 10/11/18 07:56 Albumin/Globulin Ratio 1.2 (1.0-2.1) 10/11/18 07:56 Triglycerides 100 mg/dL (0-149) 08/10/18 18:13 Cholesterol 271 mg/dL (0-199) H 08/10/18 18:13 LDL Cholesterol Direct 184 mg/dL (0-129) H 08/10/18 18:13 HDL Cholesterol 59 mg/dL (30-70) 11/10/18 18:13 Free PSA 0.5 ng/mL 10/08/18 12:52 % Free PSA 10 % (calc) (>25) L 10/08/18 12:52 Total PSA 5.2 ng/mL (< or = 4.0) H 10/08/18 12:52 Procalcitonin 0.12 NG/ML (0.19-0.49) L 08/19/18 11:30 TSH 3rd Generation 1.50 mIU/L (0.46-4.68) 08/12/18 06:24 Urine Color Yellow (YELLOW) 10/07/18 00:19 Urine Clarity Clear (Clear) 10/07/18 00:19 Urine pH 6.0 (5.0-8.0) 10/07/18 00:19 Ur Specific [place] 1.014 (1.003-1.030) 10/07/18 00:19 Urine Protein Negative mg/dL (NEGATIVE) 10/07/18 00:19 Urine Glucose (UA) Normal mg/dL (Normal) 10/07/18 00:19 Urine Ketones Negative mg/dL (NEGATIVE) 10/07/18 00:19 Urine Blood Negative (NEGATIVE) 10/07/18 00:19 Urine Nitrate Negative (NEGATIVE) 10/07/18 00:19 Urine Bilirubin Negative (NEGATIVE) 10/07/18 00:19 Urine Urobilinogen Normal mg/dL (0.2-1.0) 10/07/18 00:19 Ur Leukocyte Esterase Neg Pravin/uL (Negative) 10/07/18 00:19 Urine WBC (Auto) 1 /hpf (0-5) 10/07/18 00:19 Urine RBC (Auto) 1 /hpf (0-3) 10/07/18 00:19 Ur Squamous Epith Cells 8 /hpf (0-5) H 08/19/18 11:30 Urine Bacteria Rare (<OCC) 10/07/18 00:19 Vancomycin Trough < 5.0 ug/mL (5.0-10.0) L 08/19/18 12:05 Urine Opiates Screen Negative (NEGATIVE) 08/11/18 11:28 Urine Methadone Screen Negative (NEGATIVE) 08/11/18 11:28 Ur Barbiturates Screen Negative (NEGATIVE) 08/11/18 11:28 Ur Phencyclidine Scrn Negative (NEGATIVE) 08/11/18 11:28 Ur Amphetamines Screen Negative (NEGATIVE) 08/11/18 11:28 U Benzodiazepines Scrn Negative (NEGATIVE) 08/11/18 11:28 U Oth Cocaine Metabols Negative (NEGATIVE) 08/11/18 11:28 U Cannabinoids Screen Positive (NEGATIVE) H 08/11/18 11:28 Alcohol, Quantitative < 10 mg/dl (0-10) 08/10/18 18:13 Rheumatoid Factor <14 IU/mL (<14) 08/19/18 22:32 SEVERO Screen Negative (NEGATIVE) 08/19/18 22:32 SEVERO Titer TNP 08/19/18 22:32 SEVERO Pattern TNP 08/19/18 22:32 SS-A Antibody <1.0 neg AI (<1.0 NEGATIVE) 08/19/18 22:32 SS-B Antibody <1.0 neg AI (<1.0 NEGATIVE) 08/19/18 22:32 Sm (Moran) Antibody <1.0 neg AI (<1.0 NEGATIVE) 08/19/18 22:32 SM/BLOCK CAPTAIN Antibody <1.0 neg AI (<1.0 NEGATIVE) 08/19/18 22:32 Scl-70 Antibody <1.0 neg AI (<1.0 NEGATIVE) 08/19/18 22:32 Anti-ds DNA Titer (Crith) TNP 08/19/18 22:32 Anti-ds DNA (Crithidia) Negative (NEGATIVE) 08/19/18 22:32 Ribosomal P Prot Ab <1.0 neg AI (<1.0 NEGATIVE) 08/19/18 22:32 Anti-Mitochondrial Titr TNP 08/19/18 22:32 Anti-Mitochondrial Ab Negative (NEGATIVE) 08/19/18 22:32 [id number] Ab 17 BELKIS (<=20) 08/19/18 22:32 Beta-2 GPI IgG Ab <9 SGU (<=20) 08/19/18 22:32 Beta-2 GPI IgM Ab <9 SMU (<=20) 08/19/18 22:32 Actin IgG Antibody <20 U 08/19/18 22:32 Striated Muscle Ab Negative (NEGATIVE) 08/19/18 22:32 Myocardial Ab Titer TNP 08/19/18 22:32 Anti-Myocardial Ab Negative (NEGATIVE) 08/19/18 22:32 Reticulin Ab Titer TNP 08/19/18 22:32 Reticulin IgA Antibody Negative (NEGATIVE) 08/19/18 22:32 Thyroperoxidase Ab <1 IU/mL (<9) 08/19/18 22:32 Anti-Parietal Cell Ab <20.0 U 08/19/18 22:32 Phosphatidylserine IgG <10 U/mL (<10) 08/19/18 22:32 Phosphatidylserine IgA <20 U/mL (<20) 08/19/18 22:32 Phosphatidylserine IgM <25 U/mL (<25) 08/19/18 22:32 Anti-Phospholipid Intrp see note 08/19/18 22:32 Anti-Cardiolipin IgG Ab <14 GPL (<=14) 08/20/18 10:00 Anti-Cardiolipin IgA Ab <11 APL (<=11) 08/20/18 10:00 Anti-Cardiolipin IgM Ab <12 MPL (<=12) 08/20/18 10:00 Complement C3 262 mg/dL (82-185) H 08/19/18 22:32 Complement C4 71 mg/dL (15-53) H 08/19/18 22:32 RPR Nonreactive (NONREACTIVE) 08/23/18 06:20 Hepatitis A IgM Ab Negative (NEGATIVE) 08/19/18 11:30 Hep Bs Antigen Negative (NEGATIVE) 08/19/18 11:30 Hep B Core IgM Ab Negative (NEGATIVE) 08/19/18 11:30 Hepatitis C Antibody Negative (NEGATIVE) 08/19/18 11:30 Prothrombin Mut Interp see note 08/20/18 06:00 Prothrombin Gene Mutate see note 08/20/18 06:00 Prothromb Gene Review see note 08/20/18 06:00 Blood Type A POSITIVE 08/10/18 18:50 Antibody Screen Negative 08/10/18 18:50 Clinical Quality Measures - CQM - Stroke Antithrombotic Prescribed: Yes Contranindication/Reason for not providing: Other Anticoagulation Prescribed for Atrial Flutter, Atrial Fibrillation and History of:: Medical Contraindication Present Contranindication/Reason for not providing: Risk for Bleeding Statin prescribed: Yes
--- NOTE | 2018-10-13 08:40 | CP.PCM.PCO ---
Physician Communication Note - Physician Communication Note Physician Communication Note: Please see above
[2018-10-13] MEDS: Multiple Vitamins Tab PO SCH (09:03)
[2018-10-13] MEDS: Lactobacillus Acidophilus 500 MU Cap PO SCH (09:03)
[2018-10-13 09:27] VITALS: BP 124/82; PULSE 79; TEMP 98; O2SAT 98
== END 2018-10-13 09:44 | disposition home or self-care (01) | DRG 40 ==
LOC: C.ER 17:57 → C.9I 19:30 → C.6T 08-19 17:01 → C.9I 08-19 18:15 → C.6T 08-29 17:47
PROVIDERS: ADMIT Family Medicine; ATTEND Family Medicine
PROC: 02HV33Z Insertion of Infusion Device into Superior Vena Cava, Percutaneous Approach (ICD-10-PCS; 2018-08-11)
PROC: 06H03DZ Insertion of Intraluminal Device into Inferior Vena Cava, Percutaneous Approach (ICD-10-PCS; principal; 2018-08-20 13:30)
PROC: 02HV33Z Insertion of Infusion Device into Superior Vena Cava, Percutaneous Approach (ICD-10-PCS; 2018-09-10)
PROC: HZ52ZZZ Individual Psychotherapy for Substance Abuse Treatment, Cognitive-Behavioral (ICD-10-PCS; 2018-09-10)
PROC: HZ59ZZZ Individual Psychotherapy for Substance Abuse Treatment, Supportive (ICD-10-PCS; 2018-09-10)
PROC: HZ56ZZZ Individual Psychotherapy for Substance Abuse Treatment, Psychoeducation (ICD-10-PCS; 2018-09-10)
PROC: HZ42ZZZ Group Counseling for Substance Abuse Treatment, Cognitive-Behavioral (ICD-10-PCS; 2018-09-10)
PROC: HZ46ZZZ Group Counseling for Substance Abuse Treatment, Psychoeducation (ICD-10-PCS; 2018-09-10)
PROC: GZHZZZZ Group Psychotherapy (ICD-10-PCS; 2018-09-10)
PROC: GZ58ZZZ Individual Psychotherapy, Cognitive-Behavioral (ICD-10-PCS; 2018-09-10)
PROC: GZ56ZZZ Individual Psychotherapy, Supportive (ICD-10-PCS; 2018-09-10)
DX: I61.8 Other nontraumatic intracerebral hemorrhage (principal); G93.6 Cerebral edema; I26.99 Other pulmonary embolism without acute cor pulmonale; J18.9 Pneumonia, unspecified organism; F32.1 Major depressive disorder, single episode, moderate; G81.94 Hemiplegia, unspecified affecting left nondominant side; E87.0 Hyperosmolality and hypernatremia; I82.402 Acute embolism and thrombosis of unspecified deep veins of left lower extremity; N39.0 Urinary tract infection, site not specified; R47.01 Aphasia; R29.810 Facial weakness; B35.3 Tinea pedis; F10.20 Alcohol dependence, uncomplicated; Y90.0 Blood alcohol level of less than 20 mg/100 ml; F12.10 Cannabis abuse, uncomplicated; R73.02 Impaired glucose tolerance (oral); R50.82 Postprocedural fever; R29.714 NIHSS score 14; R33.9 Retention of urine, unspecified